=== PATIENT | male | born 1935 | race Caucasian/White ===

== ENCOUNTER 2016-09-23 21:06 | Inpatient (IN) | payer MEDICARE ==
[~2016-09-23] VITALS: Ht 167.6 cm; Wt 70.0 kg
[~2016-09-23 21:06] MED LIST: GABA300C3 PO; LOVA40TA PO; MULT1TAB; PLAV75TA PO; PRED5PAK PO; TAMS5CAP PO; TRAV0.00 EACH EYE; VERA120T3 PO; VITA200017 PO
[2016-09-23] MEDS ORDERED: ACETAMINOPHEN 325 MG TAB PO ONE (21:30)
--- NOTE | 2016-09-23 21:33 | PD ---
HPI Chief Complaint: GENERALIZED WEAKNESS Time Seen by Provider: 21:25 Travel History International Travel<30 days: No Contact w/Intl Traveler<30days: No Traveled to known affect area: No History of Present Illness HPI 81- year old male brought to the ED by EVAC presenting with weakness for the past week. Per EVAC, the patient's called due to weakness and no appetite for the past week. The patient reports that he had a cough for the past week for which he tried some old prednisone that he had for the past two days. He reports that he had no relief with the prednisone. The patient denies any nausea , vomiting, diarrhea, or headache. He does however report some chest pain associated with the coughing. He reports his past medical history includes HTN and HLD. He denies any smoking, alcohol, or drug use. He does to him he has a history of kidney failure and they are monitoring him to see whether he might need dialysis. he follows with Dr. Long for this. She does tell me he has a history of bronchitis with COPD. PFSH Past Medical History Cancer: No Cardiovascular Problems: Yes High Cholesterol: Yes Endocrine: No Genitourinary: Yes (OLIGURIA(CHRONIC PER PT)) Hypertension: Yes Immune Disorder: No Musculoskeletal: No Neurologic: No Psychiatric: No Reproductive: No Past Surgical History Oral Surgery: Yes (TONSILLECTOMY) Social History Alcohol Use: No Tobacco Use: No Substance Use: No Allergies-Medications (Allergen,Severity, Reaction): Coded Allergies: No Known Allergies (Unverified , 09/23/16) Reported Meds & Prescriptions Reported Meds & Active Scripts Active Reported Travatan Z Opth Drops (Travoprost) 0.004 % Soln 1 Drop EACH EYE HS Tamsulosin (Tamsulosin HCl) 0.4 Mg Cap 0.4 Mg PO HS Lovastatin 40 Mg Tab 40 Mg PO DAILY Clopidogrel (Clopidogrel Bisulfate) 75 Mg Tab 75 Mg PO DAILY D3 (Cholecalciferol) 400 Unit Cap Men's Multi-Vitamin (Multivitamin) 1 Each Tablet Verapamil (Verapamil HCl) 120 Mg Tab 120 Mg PO BID Losartan (Losartan Potassium) 25 Mg Tab 25 Mg PO DAILY Calcitriol 0.25 Mcg Cap 0.25 Mcg PO DAILY Review of Systems General / Constitutional: Positive: Fever, Other (Decreased Appetite), No: Chills, Weight Gain, Weight Loss Eyes: No: Diploplia, Blurred Vision, Photophobia, Drainage, Redness, Foreign Body Sensation, Pain, Tearing, Blind Spots, Visual changes, Blindness, Other HENT: No: Headaches, Vertigo, Lightheadedness, Sore Throat, Rhinitis, Rhinorrhea, Congestion, Nosebleed, Neck Stiffness, Neck Pain, Masses, Gingival Bleeding, Dental Difficulties, Ear Discharge, Earache, Other Cardiovascular: Positive: Chest Pain or Discomfort (related to coughing), No: Palpitations, Irregular Rhythm, Tachycardia, Diaphoresis, Syncope, Dyspnea on exertion, Varicosities, Edema, Cyanosis, Varicosities, Phlebitis, Claudication, Other Respiratory: Positive: Cough, No: Shortness of Breath, Wheezing, Sneezing, Orthopnea, Hemoptysis, Stridor, Night Sweats, Pleuritic Pain, Other Gastrointestinal: No: Nausea, Vomiting, Diarrhea, Abdominal Pain, Hematemesis, Hematochezia, Constipation, Changes in Bowel Habits, Indigestion, Dysphagia, Loss of Appetite, Other Genitourinary: No: Urgency, Frequency, Dysuria, Nocturia, Hematuria, Decreased Urinary Output, Oliguria, Hesitancy, Dribbling, Incontinence, Pelvic Pain, Flank Pain, Dyspareunia, Discharge, Dysmenorrhea, Menorrhagia, Metorrhagia, Vaginal Bleeding, Other Musculoskeletal: No: Myalgias, Arthralgias, Limited ROM, Weakness, Cramping, Edema, Pain, Atrophy, Other Skin: No Rash, No Itching, No Dryness, No Lumps, No Hives, No Change in Pigmentation, No Change in nails, No Alopecia, No Lesions, No Breast Lumps, No Breast Tenderness, No Breast Swelling, No Other Neurologic: Positive: Weakness (generalized), No: Dizziness, Syncope, Focal Abnormalities, Coordination Problem, Tremor, Ataxia, Headache, Change in Mentation, Slurred Speech, Paresthesia, Incontinence, Seizures, Sensory Disturbance, Other Psychiatric: No: Anxiety, Depression, Suicidal Ideations, Disorder of Thought, Mood Disorder, Substance Abuse, Homicidal Ideation, Other Endocrine: No: Heat Intolerance, Cold Intolerance, Polyuria, Polydipsia, Other Hematologic/Lymphatic: No: Easy Bruising, Lymph Node Enlargement, Other Physical Exam Narrative GENERAL: SKIN: Warm and dry. HEAD: Atraumatic. Normocephalic. EYES: Pupils equal and round. No scleral icterus. No injection or drainage. ENT: No nasal bleeding or discharge. Mucous membranes pink and moist. Tongue is midline. No uvula deviation. NECK: Trachea midline. No JVD. CARDIOVASCULAR: Regular rate and rhythm. No S3, S4, or murmurs. RESPIRATORY: No accessory muscle use. Mild rales in the lower lung garcia. Breath sounds equal bilaterally. No wheezing, rales, or rhonchi. GASTROINTESTINAL: Abdomen soft, non-tender, nondistended. Hepatic and splenic margins not palpable. MUSCULOSKELETAL: Extremities without clubbing, cyanosis, or edema. No obvious deformities. 2+ pulses bilaterally. Range of motion of the upper and lower extremities bilaterally. 2+ pulses bilaterally. NEUROLOGICAL: Awake and alert. No obvious cranial nerve deficits. Motor grossly within normal limits. Five out of 5 muscle strength in the arms and legs. Normal speech. PSYCHIATRIC: Appropriate mood and affect; insight and judgment normal. Data Data Last Documented VS Vital Signs Date Time Temp Pulse Resp B/P Pulse Ox O2 Delivery O2 Flow Rate FiO2 09/23/16 21:40 100 Room Air 09/23/16 21:35 101.9 87 30 149/71 Orders Complete Blood Count With Diff (09/23/16 21:30) Comprehensive Metabolic Panel (09/23/16 21:30) Lactic Acid (09/23/16 21:30) Prothrombin Time / Inr (Pt) (09/23/16 21:30) Act Partial Throm Time (Ptt) (09/23/16 21:30) Urinalysis - C+S If Indicated (09/23/16 21:30) Iv Access Insert/Monitor (09/23/16 21:30) Ecg Monitoring (09/23/16 21:30) Oximetry (09/23/16 21:30) Electrocardiogram (09/23/16 21:30) Troponin I (09/23/16 21:30) B-Type Natriuretic Peptide (09/23/16 21:30) Blood Culture (09/23/16 21:30) Chest, Single Ap (09/23/16 21:30) Acetaminophen (Tylenol) (09/23/16 21:30) Azithromycin Inj (Zithromax Inj) (09/23/16 22:45) Admit To Inpatient (09/23/16 ) Vital Signs (Adult) Q4H (09/23/16 22:54) Activity Oob With Assistance (09/23/16 22:54) Paymaster Of Purses / Telemetry .CONTINUOUS (09/23/16 22:54) Intake + Output TAMI.QSHIFT (09/23/16 22:54) Diet Heart Healthy (09/24/16 Breakfast) Sodium Chloride 0.9% Flush (Ns Flush) (09/23/16 23:00) Sodium Chloride 0.9% Flush (Ns Flush) (09/24/16 09:00) Basic Metabolic Panel (Bmp) (09/24/16 06:00) Complete Blood Count With Diff (09/24/16 06:00) Resp Oxygen Tobi C Titrat 1-4 L (09/23/16 ) Pt Request For Service (09/23/16 22:54) Case Management Consult (09/23/16 22:54) Naloxone Inj (Narcan Inj) (09/23/16 23:00) Inpatient Certification (09/23/16 ) Ceftriaxone Inj (Rocephin Inj) (09/24/16 23:00) Azithromycin Inj (Zithromax Inj) (09/24/16 23:00) Admit Order (Ed Use Only) (09/23/16 22:52) Consult Nephrology (09/23/16 ) Labs Laboratory Tests Test 09/23/16 09/23/16 21:50 21:51 Lactic Acid Level 1.6 mmol/L White Blood Count 14.3 TH/MM3 Red Blood Count 3.08 MIL/MM3 Hemoglobin 9.9 GM/DL Hematocrit 28.7 % Mean Corpuscular Volume 93.1 FL Mean Corpuscular Hemoglobin 32.0 PG Mean Corpuscular Hemoglobin 34.4 % Concent Red Cell Distribution Width 13.0 % Platelet Count 164 TH/MM3 Mean Platelet Volume 9.3 FL Neutrophils (%) (Auto) 91.7 % Lymphocytes (%) (Auto) 2.1 % Monocytes (%) (Auto) 6.1 % Eosinophils (%) (Auto) 0.0 % Basophils (%) (Auto) 0.1 % Neutrophils # (Auto) 13.1 TH/MM3 Lymphocytes # (Auto) 0.3 TH/MM3 Monocytes # (Auto) 0.9 TH/MM3 Eosinophils # (Auto) 0.0 TH/MM3 Basophils # (Auto) 0.0 TH/MM3 CBC Comment DIFF FINAL Differential Comment Prothrombin Time 12.7 SEC Prothromb Time International 1.1 RATIO Ratio Activated Partial 49.9 SEC Thromboplast Time Sodium Level 133 MEQ/L Potassium Level 4.4 MEQ/L Chloride Level 102 MEQ/L Carbon Dioxide Level 17.8 MEQ/L Anion Gap 13 MEQ/L Blood Urea Nitrogen 105 MG/DL Creatinine 6.78 MG/DL Estimat Glomerular Filtration 8 ML/MIN Rate Random Glucose 124 MG/DL Calcium Level 9.1 MG/DL Total Bilirubin 0.5 MG/DL Aspartate Amino Transf 63 U/L (AST/SGOT) Alanine Aminotransferase 43 U/L (ALT/SGPT) Alkaline Phosphatase 52 U/L Troponin I 0.22 NG/ML B-Type Natriuretic Peptide 400 PG/ML Total Protein 7.1 GM/DL Albumin 3.0 GM/DL MDM Medical Decision Making Medical Screen Exam Complete: Yes Emergency Medical Condition: Yes Medical Record Reviewed: Yes Interpretation(s) CBC & BMP Diagram 09/23/16 21:51 Last Impressions Chest X-Ray 09/23/162129 Signed Impressions: Service Date/Time: Friday, September 23, 2016 21:48 - CONCLUSION: Mild infiltrate and small pleural effusion at the left lung base. Joe Hdz MD lactic acid WNL troponin slightly elevated 0.22 CK WNL Differential Diagnosis Kidney failure versus pneumonia versus sepsis versus bronchitis Narrative Course 81-year-old male that presents to the ED for evaluation of cough and congestion as well as weakness. Patient was properly examined and was found to have signs and symptoms for sepsis. Patient does have a fever on exam. Patient was given Tylenol for the fever. Labs and imaging were done. Labs and imaging showed leukocytosis and signs of sepsis as well as possible pneumonia on the chest x- ray. More interestingly his kidney function appears to have drastically worsen. is present at bedside and she was able to give me the labs from 2 months ago where his BUN was 50 and now his BUN is in the 100s. His creatinine also seems to have increased from 4-6. This appears to be acute on chronic. Possibly from dehydration and secondary to his current illness. Patient follows with Dr. Long. At this time I recommend admission for fracture evaluation of the kidney injury as well as the sepsis. Patient is in agreement with plan. She was started on azithromycin and ceftriaxone. Case was discussed with Dr. Walsh who agrees to admission. Sepsis Criteria SIRS Criteria (2 or more): Temp > 100.9 or < 96.8, WBC > 41179, < 4000 or > 10 % bands Sepsis Criteria (SIRS+source): Infect source susp/known Criteria Outcome: Meets sepsis criteria Diagnosis Primary Impression: Pneumonia Qualified Code: J18.1 - Pneumonia of right lower lobe due to infectious organism Additional Impressions: Acute on chronic kidney failure Qualified Code: N17.9 - Acute renal failure superimposed on chronic kidney disease, unspecified CKD stage, unspecified acute renal failure type Sepsis Qualified Code: A41.9 - Sepsis, due to unspecified organism Troponin level elevated Admitting Information Admitting Physician Requests: Admit Lawrence Packer Sep 23, 2016 21:33
[2016-09-23 21:35] VITALS: BP 149/71; PULSE 87; RESP 30; TEMP 101.9; O2SAT 98
[2016-09-23 21:40] VITALS: O2SAT 100
[2016-09-23] MEDS ORDERED: CALC0.25 PO (21:49)
[2016-09-23] MEDS ORDERED: VERA120T3 PO (21:49)
[2016-09-23] MEDS ORDERED: MULT-267 (21:49)
[2016-09-23] MEDS ORDERED: LOSA25TA PO (21:49)
[2016-09-23] MEDS ORDERED: TRAV0.00 EACH EYE (21:50)
[2016-09-23] MEDS ORDERED: D3400CAP (21:50)
[2016-09-23] MEDS ORDERED: CLOP75TA PO (21:50)
[2016-09-23] MEDS ORDERED: LOVA40TA PO (21:50)
[2016-09-23] MEDS ORDERED: TAMS0.4C4 PO (21:50)
--- NOTE | 2016-09-23 22:16 | RADRPT ---
EXAM DATE/TIME: 09/23/2016 21:48 [facility] COMPARISON: No previous studies available for comparison. INDICATIONS : Short of breath for a few days. MEDICAL HISTORY : Hypertension. SURGICAL HISTORY : None. ENCOUNTER: Initial ACUITY: 2 days PAIN SCORE: 0/10 LOCATION: Bilateral chest FINDINGS: Mild infiltrate and small pleural effusion seen at the left lung base. Right lung is clear. No pneumo thorax on either side. CONCLUSION: Mild infiltrate and small pleural effusion at the left lung base. Joe Hdz MD on September 23, 2016 at 22:14 Board Certified Radiologist. This report was verified electronically.
[2016-09-23 22:21] LABS: AUTOMATED NEUTROPHIL # 13.1 TH/MM3 (1.8-7.7); BASOPHIL % 0.1 % (0.0-2.0); HEMATOCRIT 28.7 % (39.0-51.0); HEMO FLAGS DIFF FINAL; LYMPH % 2.1 % (9.0-44.0); LYMPHOCYTE # 0.3 TH/MM3 (1.0-4.8); MEAN CELL VOLUME 93.1 FL (80.0-100.0); MEAN CORPUSCULAR HGB CONC 34.4 % (32.0-36.0); MONO % 6.1 % (0.0-8.0); NEUT % 91.7 % (16.0-70.0); PLATELET COUNT 164 TH/MM3 (150-450); RED BLOOD COUNT 3.08 MIL/MM3 (4.50-5.90); WHITE BLOOD COUNT 14.3 TH/MM3 (4.0-11.0)
[2016-09-23 22:41] LABS: APTT (PATIENT) 49.9 SEC (24.3-30.1); INTERNATIONAL NORMALIZED RATIO 1.1 RATIO; PROTHROMBIN TIME - PATIENT 12.7 SEC (9.8-11.6)
[2016-09-23 22:42] LABS: ALT (GPT) 43 U/L (12-78); ANION GAP 13 MEQ/L (5-15); AST (GOT) 63 U/L (15-37); BICARBONATE 17.8 MEQ/L (21.0-32.0); BLOOD UREA NITROGEN 105 MG/DL (7-18); CHLORIDE 102 MEQ/L (98-107); GLOMERULAR FILTRATION RATE 8 ML/MIN (>89); POTASSIUM 4.4 MEQ/L (3.5-5.1); SODIUM (NA) 133 MEQ/L (136-145)
[2016-09-23] MEDS ORDERED: AZITHROMYCIN INJ 500 MG in SODIUM CHLOR 0.9% 250 ML INJ 250 ML IV ONE (22:45)
[2016-09-23 22:46] LABS: ALKALINE PHOSPHATASE 52 U/L (45-117); TOTAL BILIRUBIN ADULT 0.5 MG/DL (0.2-1.0)
[2016-09-23] MEDS ORDERED: NALOXONE HCL 0.4 MG/ML AMP IV PRN (23:00)
[2016-09-23] MEDS ORDERED: SODIUM CHLORIDE 0.9% FLUSH 10 ML FLUSH IV FLUSH PRN (23:00)
[2016-09-23] MEDS ORDERED: cefTRIAXone INJ 1,000 MG in SODIUM CHLORIDE 0.9% INJ 100 ML IV ONE (23:00)
[2016-09-23 23:05] VITALS: O2SAT 95
[2016-09-23 23:43] VITALS: BP 129/58; PULSE 62; RESP 14; TEMP 98.2
[2016-09-24] VITALS (10 sets, daily range): BP systolic 117–173; BP diastolic 54–74; PULSE 50–75; RESP 14–22; TEMP 98.4–99.6; O2SAT 93–98
[2016-09-24 07:42] LABS: AUTOMATED NEUTROPHIL # 12.3 TH/MM3 (1.8-7.7); BASOPHIL % 0.1 % (0.0-2.0); HEMATOCRIT 25.6 % (39.0-51.0); HEMO FLAGS DIFF FINAL; LYMPH % 1.9 % (9.0-44.0); LYMPHOCYTE # 0.3 TH/MM3 (1.0-4.8); MEAN CELL VOLUME 93.1 FL (80.0-100.0); MEAN CORPUSCULAR HEMOGLOBIN 32.4 PG (27.0-34.0); MEAN CORPUSCULAR HGB CONC 34.8 % (32.0-36.0); MONO % 9.2 % (0.0-8.0); NEUT % 88.8 % (16.0-70.0); PLATELET COUNT 156 TH/MM3 (150-450); RED BLOOD COUNT 2.75 MIL/MM3 (4.50-5.90); RED CELL DISTRIBUTION WIDTH 13.1 % (11.6-17.2); WHITE BLOOD COUNT 13.8 TH/MM3 (4.0-11.0)
[2016-09-24 08:01] LABS: BICARBONATE 19.8 MEQ/L (21.0-32.0); POTASSIUM 4.4 MEQ/L (3.5-5.1)
--- NOTE | 2016-09-24 08:30 | HHI.HP ---
[facility] Lisa Yousif MD Admission Diagnosis acute pneumonia, acute on chronic kidney injury Diagnoses: Chief Complaint: Weakness and cough Travel History International Travel<30 Days: No Contact w/Intl Traveler <30 Da: No Traveled to Known Affected Are: No History of Present Illness This is a pleasant 81 y/o male who came to ER with Weakness for the past week, the patient's called due to weakness and no appetite for the past week. The patient reports that he had a cough for the past week for which he tried some old prednisone that he had for the past two days. He reports that he had no relief with the prednisone. The patient denies any nausea, vomiting, diarrhea, or headache. He does however report some chest pain associated with the coughing. He reports his past medical history includes Hypertension, Hyperlipidemia, He denies any smoking, alcohol, or drug use. has history of Kidney failure, followed by Doctor Osman Long Nephrology specialist, Has also COPD. Seen in his bedroom stable Discussed with Doctor Denisse Nephrology specialist the patient will need Hemodialysis. 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 Past Surgical History Tonsillectomy Reported Medications Reported Meds & Active Scripts Active Reported Travatan Z Opth Drops (Travoprost) 0.004 % Soln 1 Drop EACH EYE HS Tamsulosin (Tamsulosin HCl) 0.4 Mg Cap 0.4 Mg PO HS Lovastatin 40 Mg Tab 40 Mg PO DAILY Clopidogrel (Clopidogrel Bisulfate) 75 Mg Tab 75 Mg PO DAILY D3 (Cholecalciferol) 400 Unit Cap Men's Multi-Vitamin (Multivitamin) 1 Each Tablet Verapamil (Verapamil HCl) 120 Mg Tab 120 Mg PO BID Losartan (Losartan Potassium) 25 Mg Tab 25 Mg PO DAILY Calcitriol 0.25 Mcg Cap 0.25 Mcg PO DAILY Allergies: Coded Allergies: No Known Allergies (Unverified , 8/15/17) Active Ordered Medications Current Medications Medications (Trade) Dose Ordered Sig/[place] Route Start Time Stop Time Status Last Admin (NS Flush) 2 ml UNSCH PRN IV FLUSH 09/23/16 23:00 (NS Flush) 2 ml BID IV FLUSH 09/24/16 09:00 Naloxone HCl 0.4 mg 0.4 mg UNSCH PRN IV 09/23/16 23:00 Ceftriaxone Sodium 1000 mg/ Sodium Chloride 100 ml @ 200 mls/hr Q24H IV 09/24/16 23:00 (Zithromax Inj/ NS 250 ml Inj) 250 ml @ 250 mls/hr Q24H IV 09/24/16 23:00 Family History Asked and denied. Social History Denies any toxic habits. Lives with his . Physical Exam Vital Signs Vital Signs Date Time Temp Pulse Resp B/P Pulse Ox O2 Delivery O2 Flow Rate FiO2 09/24/16 07:22 99.6 54 18 144/67 95 Room Air 09/24/16 06:45 51 18 148/63 98 Room Air 09/24/16 05:13 98.7 50 16 161/70 98 Room Air 09/24/16 03:46 52 14 129/54 98 Room Air 09/24/16 00:42 60 18 117/58 98 Room Air 09/23/16 23:43 98.2 62 14 129/58 Room Air 09/23/16 23:05 95 21 09/23/16 21:40 100 Room Air 09/23/16 21:35 101.9 87 30 149/71 98 Physical Exam GENERAL: NO acute distress. SKIN: Warm and dry. HEAD: Atraumatic. Normocephalic. EYES: Pupils equal and round. No scleral icterus. No injection or drainage. ENT: No nasal bleeding or discharge. Mucous membranes pink and moist. Tongue is midline. No uvula deviation. NECK: Trachea midline. No JVD. CARDIOVASCULAR: Regular rate and rhythm. No S3, S4, or murmurs. RESPIRATORY: No accessory muscle use. Mild rales in the lower lung garcia. GASTROINTESTINAL: Abdomen soft, non-tender, nondistended. Hepatic and splenic margins not palpable. MUSCULOSKELETAL: Extremities without clubbing, cyanosis, or edema. No obvious deformities. 2+ pulses bilaterally. Range of motion of the upper and lower extremities bilaterally. 2+ pulses bilaterally. NEUROLOGICAL: Awake and alert. No obvious cranial nerve deficits. Motor grossly within normal limits. Five out of 5 muscle strength in the arms and legs. Normal speech. PSYCHIATRIC: Appropriate mood and affect; insight and judgment normal. Laboratory Laboratory Tests Test 09/23/16 09/23/16 09/24/16 21:50 21:51 07:12 Lactic Acid Level 1.6 White Blood Count 14.3 13.8 Red Blood Count 3.08 2.75 Hemoglobin 9.9 8.9 Hematocrit 28.7 25.6 Mean Corpuscular Volume 93.1 93.1 Mean Corpuscular Hemoglobin 32.0 32.4 Mean Corpuscular Hemoglobin 34.4 34.8 Concent Red Cell Distribution Width 13.0 13.1 Platelet Count 164 156 Mean Platelet Volume 9.3 8.9 Neutrophils (%) (Auto) 91.7 88.8 Lymphocytes (%) (Auto) 2.1 1.9 Monocytes (%) (Auto) 6.1 9.2 Eosinophils (%) (Auto) 0.0 0.0 Basophils (%) (Auto) 0.1 0.1 Neutrophils # (Auto) 13.1 12.3 Lymphocytes # (Auto) 0.3 0.3 Monocytes # (Auto) 0.9 1.3 Eosinophils # (Auto) 0.0 0.0 Basophils # (Auto) 0.0 0.0 CBC Comment DIFF FINAL DIFF FINAL Differential Comment Prothrombin Time 12.7 Prothromb Time International 1.1 Ratio Activated Partial 49.9 Thromboplast Time Sodium Level 133 136 Potassium Level 4.4 4.4 Chloride Level 102 105 Carbon Dioxide Level 17.8 19.8 Anion Gap 13 11 Blood Urea Nitrogen 105 112 Creatinine 6.78 7.21 Estimat Glomerular Filtration 8 7 Rate Random Glucose 124 123 Calcium Level 9.1 8.9 Total Bilirubin 0.5 Aspartate Amino Transf 63 (AST/SGOT) Alanine Aminotransferase 43 (ALT/SGPT) Alkaline Phosphatase 52 Troponin I 0.22 B-Type Natriuretic Peptide 400 Total Protein 7.1 Albumin 3.0 Date/Time Procedure Status Source Growth 09/23/16 21:56 Aerobic Blood Culture Received Blood Peripheral Pending 09/23/16 21:56 Anaerobic Blood Culture Received Blood Peripheral Pending Result Diagram: 09/24/16 0712 09/24/16 0712 Imaging Last Impressions Chest X-Ray 09/23/162129 Signed Impressions: Service Date/Time: Friday, September 23, 2016 21:48 - CONCLUSION: Mild infiltrate and small pleural effusion at the left lung base. Joe Hdz MD Assessment and Plan Assessment and Plan 1. 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 2. Pneumonia on Ceftriaxone and Azithromycin, asked for blood culture, Legionella antigen and Pneumococcal antigen. 3. Hypertension controlled continue home medicines 4. Hyperlipidemia continue Statins 5. COPD stable continue Bronchodilator, Mucolytic and incentive spirometry. 6. Anemia to start Epogen as per Nephrology specialist. DVT prophylaxis with Heparin. Discussed Condition With Patient and Nephrology specialist. Physician Certification 2 Midnight Certification Type: Admission for Inpatient Services Order for Inpatient Services The services are ordered in accordance with Medicare regulations or non- Medicare payer requirements, as applicable. In the case of services not specified as inpatient-only, they are appropriately provided as inpatient services in accordance with the 2-midnight benchmark. Estimated LOS (days): 3 days is the estimated time the patient will need to remain in the hospital, assuming treatment plan goals are met and no additional complications. Post-Hospital Plan: Not yet determined Jer German MD Sep 24, 2016 08:30
[2016-09-24] MEDS: guaiFENesin E.R. 600 MG TAB PO SCH ×2 (08:51→20:27)
[2016-09-24] MEDS: SODIUM CHLORIDE 0.9% FLUSH 10 ML FLUSH IV FLUSH SCH ×2 (08:51→20:28)
[2016-09-24] MEDS: PRAVASTATIN SOD 40 MG TAB PO SCH (09:00)
--- NOTE | 2016-09-24 10:50 | PD.CONS ---
[facility] Service Nephrology Consult Requested By Ochoa Reason for Consult Hx CKD Primary Care Physician Lisa Yousif MD History of Present Illness This is a 81 y/o male patient we follow in the outpatient setting. He has a hx of CKD 5. In July his creatinien was 4.4, GFR 11. We had previously discussed dialysis options but he was not ready as of yet. He came to the hospital for generalized weakness, loss of appetite for the past two weeks. His creatinine today is 7.21, GFR of 7. In addition he has symptoms of uremia and has developed metabolic acidosis. He has decided to proceed with PD, I have consulted Dr. Kothari for evaluation. Other PMH of secondary hyperparathyroidism , HTN, hyperlipidemia. He is also anemic today. He is a full code. (Jania Gallagher) Review of Systems Constitutional: COMPLAINS OF: Fatigue, Change in appetite, DENIES: Fever, Weight gain Eyes: DENIES: Blurred vision Cardiovascular: COMPLAINS OF: Dyspnea on Exertion, DENIES: Chest pain, Lower Extremity Edema Gastrointestinal: DENIES: Abdominal pain (Jania Gallagher) Past Family Social History Allergies: Coded Allergies: No Known Allergies (Unverified , 09/23/16) Past Medical History CKD 5, GFR 11 and creatinine 4.4 in July 2015 HTN anemia hyperlipidemia secondary hyperparathyroidism Past Surgical History Tonsillectomy Reported Medications Travatan Z Opth Drops (Travoprost) 0.004 % Soln 1 Drop EACH EYE HS Tamsulosin (Tamsulosin HCl) 0.4 Mg Cap 0.4 Mg PO HS Lovastatin 40 Mg Tab 40 Mg PO DAILY Clopidogrel (Clopidogrel Bisulfate) 75 Mg Tab 75 Mg PO DAILY D3 (Cholecalciferol) 400 Unit Cap Men's Multi-Vitamin (Multivitamin) 1 Each Tablet Verapamil (Verapamil HCl) 120 Mg Tab 120 Mg PO BID Losartan (Losartan Potassium) 25 Mg Tab 25 Mg PO DAILY Calcitriol 0.25 Mcg Cap 0.25 Mcg PO DAILY Active Ordered Medications Current Medications Medications (Trade) Dose Ordered Sig/Corin[place] Route Start Time Stop Time Status Last Admin (NS Flush) 2 ml UNSCH PRN IV FLUSH 09/23/16 23:00 (NS Flush) 2 ml BID IV FLUSH 09/24/16 09:00 09/24/16 08:51 Naloxone HCl 0.4 mg 0.4 mg UNSCH PRN IV 09/23/16 23:00 Ceftriaxone Sodium 1000 mg/ Sodium Chloride 100 ml @ 200 mls/hr Q24H IV 09/24/16 23:00 (Zithromax Inj/ NS 250 ml Inj) 250 ml @ 250 mls/hr Q24H IV 09/24/16 23:00 (Mucinex Er) 600 mg BID PO 09/24/16 09:00 09/24/16 08:51 (Rocaltrol) 0.25 mcg DAILY PO 09/24/16 09:00 UNV (Plavix) 75 mg DAILY PO 09/24/16 09:00 UNV (Pravachol) 40 mg DAILY PO 09/24/16 09:00 UNV (Flomax) 0.4 mg HS PO 09/24/16 21:00 UNV (Isoptin) 120 mg BID PO 09/24/16 09:00 UNV Non-Formulary Medication 1 drop HS EACH EYE 09/24/16 21:00 UNV Family History no hx of renal disorders Social History , lives with retired normally is functional in ADLs full code retired no smoking or ETOH (Jania Gallagher) Physical Exam Vital Signs Vital Signs Date Time Temp Pulse Resp B/P Pulse Ox O2 Delivery O2 Flow Rate FiO2 09/24/16 07:22 99.6 54 18 144/67 95 Room Air 09/24/16 06:45 51 18 148/63 98 Room Air 09/24/16 05:13 98.7 50 16 161/70 98 Room Air 09/24/16 03:46 52 14 129/54 98 Room Air 09/24/16 00:42 60 18 117/58 98 Room Air 09/23/16 23:43 98.2 62 14 129/58 Room Air 09/23/16 23:05 95 21 09/23/16 21:40 100 Room Air 09/23/16 21:35 101.9 87 30 149/71 98 Physical Exam male, he is sitting in bed in no distress Neuro: awake/ oriented x 3 CV: S1/S2, RRR no murmurs Lungs; crackles, rales, wheezing, he is coughing frequently during exam Abd: round, soft, non tender, no hernias present Ext: scars on lower extremities, trace edema, painful to touch, pulses 1+ bilaterally Laboratory Laboratory Tests Test 09/23/16 09/23/16 09/24/16 21:50 21:51 07:12 Lactic Acid Level 1.6 White Blood Count 14.3 13.8 Red Blood Count 3.08 2.75 Hemoglobin 9.9 8.9 Hematocrit 28.7 25.6 Mean Corpuscular Volume 93.1 93.1 Mean Corpuscular Hemoglobin 32.0 32.4 Mean Corpuscular Hemoglobin 34.4 34.8 Concent Red Cell Distribution Width 13.0 13.1 Platelet Count 164 156 Mean Platelet Volume 9.3 8.9 Neutrophils (%) (Auto) 91.7 88.8 Lymphocytes (%) (Auto) 2.1 1.9 Monocytes (%) (Auto) 6.1 9.2 Eosinophils (%) (Auto) 0.0 0.0 Basophils (%) (Auto) 0.1 0.1 Neutrophils # (Auto) 13.1 12.3 Lymphocytes # (Auto) 0.3 0.3 Monocytes # (Auto) 0.9 1.3 Eosinophils # (Auto) 0.0 0.0 Basophils # (Auto) 0.0 0.0 CBC Comment DIFF FINAL DIFF FINAL Differential Comment Prothrombin Time 12.7 Prothromb Time International 1.1 Ratio Activated Partial 49.9 Thromboplast Time Sodium Level 133 136 Potassium Level 4.4 4.4 Chloride Level 102 105 Carbon Dioxide Level 17.8 19.8 Anion Gap 13 11 Blood Urea Nitrogen 105 112 Creatinine 6.78 7.21 Estimat Glomerular Filtration 8 7 Rate Random Glucose 124 123 Calcium Level 9.1 8.9 Total Bilirubin 0.5 Aspartate Amino Transf 63 (AST/SGOT) Alanine Aminotransferase 43 (ALT/SGPT) Alkaline Phosphatase 52 Troponin I 0.22 B-Type Natriuretic Peptide 400 Total Protein 7.1 Albumin 3.0 Date/Time Procedure Status Source Growth 09/23/16 21:56 Aerobic Blood Culture Received Blood Peripheral Pending 09/23/16 21:56 Anaerobic Blood Culture Received Blood Peripheral Pending (Jania Gallagher) Result Diagram: 09/24/1612 09/24/16 0712 Imaging Last 72 hours Impressions Chest X-Ray 09/23/162129 Signed Impressions: Service Date/Time: Friday, September 23, 2016 21:48 - CONCLUSION: Mild infiltrate and small pleural effusion at the left lung base. Joe Hdz MD (Jania Gallagher) Assessment and Plan Problem List: (1) Chronic kidney disease Plan: He has progressive renal disease, stage 5, with symptoms of uremia GFR is now 7, he needs renal replacement therapy after discussion he has decided to proceed with PD, I have consulted Dr. Kothari for catheter placement he will likely need HD prior to starting PD, I have consulted IR for Permcath placement in AM (he already ate today) NPO after midnight tonight I will begin oral sodium bicarbonate for the metabolic acidosis follow renal panel, check phosphorus level I will await surgery's recommendations avoid IVF at this time (2) Pneumonia Plan: he is on Zithromax and rocephin for LLL pneumonia he does have mild leukocytosis monitor clinically (3) Hypertension Plan: resume home medications including verapamil and losartan (4) Hyperlipidemia Plan: he is on a statin (5) Anemia Plan: He likely has anemia of chronic disease give a dose of Epogen check iron profile (Jania Gallagher) Assessment and Plan patient was seen and examined. He presents with symptoms of uremia. We will start HD. Radiology does not want to place since he is on Plavix. Vascath placement and dialysis. PD catheter possibly next week. (Gabriel Salcedo MD) Problem Qualifiers (1) Pneumonia: Qualified Code: J18.1 - Pneumonia of right lower lobe due to infectious organism Jania Gallagher Sep 24, 2016 10:50 Gabriel Salcedo MD Sep 24, 2016 18:15
[2016-09-24] MEDS: RESP: ALBUTEROL 2.5 MG/IPRATROPIUM 0.5 MG NEB (SCH) NEB ×4 (11:21→23:14)
[2016-09-24] MEDS ORDERED: EPOETIN ALFA 20,000 UNITS/ML VIAL SQ ONE (11:45)
[2016-09-24] MEDS: VERAPAMIL HCL 120 MG TAB PO SCH ×2 (12:01→20:28)
[2016-09-24] MEDS: CLOPIDOGREL 75 MG TAB PO SCH (12:01)
[2016-09-24] MEDS: CALCITRIOL 0.25 MCG CAP PO SCH (12:02)
[2016-09-24] MEDS: SODIUM BICARBONATE 650 MG TAB PO SCH ×2 (12:02→20:28)
[2016-09-24] MEDS: TAMSULOSIN HCL 0.4 MG CAP PO SCH (20:27)
[2016-09-24] MEDS ORDERED: VERAPAMIL HCL 120 MG SUSTAINED RELEASE TAB PO SCH (21:00)
[2016-09-24] MEDS: LATANOPROST 0.005% OPHT SOLN 2.5 ML BTL EACH EYE SCH (22:41)
[2016-09-24] MEDS: AZITHROMYCIN INJ 250 MG in SODIUM CHLOR 0.9% 250 ML INJ 250 ML IV SCH (22:41)
[2016-09-25] VITALS (7 sets, daily range): BP systolic 110–153; BP diastolic 56–69; PULSE 57–67; RESP 16–20; TEMP 96–98.6; O2SAT 93–96
[2016-09-25] MEDS: cefTRIAXone INJ 1,000 MG in SODIUM CHLORIDE 0.9% INJ 100 ML IV SCH ×2 (00:23→21:55)
[2016-09-25] MEDS: RESP: ALBUTEROL 2.5 MG/IPRATROPIUM 0.5 MG NEB (SCH) NEB ×3 (02:57→11:10)
[2016-09-25 08:18] LABS: ANION GAP 13 MEQ/L (5-15); BICARBONATE 17.9 MEQ/L (21.0-32.0); BLOOD UREA NITROGEN 123 MG/DL (7-18); CHLORIDE 105 MEQ/L (98-107); GLOMERULAR FILTRATION RATE 7 ML/MIN (>89); POTASSIUM 4.2 MEQ/L (3.5-5.1); SODIUM (NA) 136 MEQ/L (136-145)
[2016-09-25 08:29] LABS: FERRITIN 1507 NG/ML (26-388); TRANSFERRIN IRON PROFILE 94 MG/DL (200-360)
--- NOTE | 2016-09-25 08:51 | EKG ---
Date Performed: 09/23/2016 Time Performed: 21:42:17 PTAGE: 81 years EKG: Difficult rhythm, possible AV dissociation with junctional escape which may convert to NSR with short MI Non-specific ST/T wave changes ABNORMAL ECG PREVIOUS TRACING : 09/23/2016 21.41 Compared to the previous tracing, previously normal Sinus r hythm DOCTOR: Elliot Arizmendi Interpretating Date/Time 09/25/2016 08:49:20
[2016-09-25] MEDS: SODIUM BICARBONATE 650 MG TAB PO SCH (09:00)
[2016-09-25] MEDS: SODIUM CHLORIDE 0.9% FLUSH 10 ML FLUSH IV FLUSH SCH ×2 (09:00→21:54)
--- NOTE | 2016-09-25 09:14 | PD.RAD ---
Post Procedure Progress Note Pre Procedure Diagnosis: (1) Acute on chronic kidney failure Post Procedure Diagnosis: (1) Acute on chronic kidney failure Procedure Date: Sep 25, 2016 Supervising Radiologist: Abhishek Fatima JR Proceduralist/Assist: Kimberley Sidhu, RT(R)(CV), Deysi Sandhu RT(R)() Anesthesia: Local Plan of Activity Patient to Unit: Nursing Unit Patient Condition: Good See PACS Report for procedural detail/treatment Central Venous Access Device Procedure 1 Right Internal Jugular Hemodialysis Catheter Non-Tunneled Placement dual lumen Greek: 14 Findings: Placed Vascath secondary to Plavix. In good position. Functions well. OK to use. Plan Can convert to Permcath if needed following Plavix hold. Jr. Kushal,Abhishek Champan MD Sep 25, 2016 09:14
[2016-09-25] MEDS ORDERED: HEPARIN SODIUM - IV 2,000 UNITS/2 ML VIAL IV FLUSH PRN (09:15)
[2016-09-25] MEDS ORDERED: SODIUM CHLORIDE 0.9% FLUSH 10 ML FLUSH IVF PRN (09:15)
--- NOTE | 2016-09-25 10:15 | RADRPT ---
EXAM DATE/TIME: 09/25/2016 08:45 [place] COMPARISON: No previous studies available for comparison. INDICATIONS : Patient is in need of placement of a Vascath due to CKD. Patient on Plavix. MEDICAL HISTORY : History of hyperparathyroidism, HTN, HLD, anemia, pneumonia. SURGICAL HISTORY : History of tonsillectomy. ENCOUNTER: Initial ACUITY: 2 days PAIN SCORE: 0/10 FLUORO TIME: 0.6 minutes IMAGE SERIES: 1 ACCESS: Right internal jugular vein MEDICATION(S): 1.) 2200 units Heparin catheter lock DEVICE(S): 1.) 14 [place] dual lumen 15 cm Schon catheter PROCEDURE : 1. Ultrasound guided venipuncture. 2. Fluoroscopic guidance. 3. Central line placement. The risks, benefits and alternatives to the procedure were explained and verbal and written consent w as obtained. The site was prepped in sterile fashion. Full sterile technique was used, including ca p, mask, sterile gloves and gown and a large sterile sheet. Hand hygiene and 2% chlorhexidine prep w as utilized per protocol for cutaneous antisepsis with appropriate dry time for site. The skin and subcutaneous tissues were infiltrated with local anesthetic solution. A suitable site a brien the vein was selected with ultrasound and fluoroscopic guidance. A small incision was made. Th e vein was accessed under direct ultrasound visualization using the micropuncture technique. The liya ropuncture set was exchanged for a 0.035 wire. The tract was dilated. The catheter was advanced int o position under direct fluoroscopic visualization. The catheter was fixed in place with suture and a sterile dressing was applied. The patient tolerated the procedure well and there were no complications. CONCLUSION: Uncomplicated line placement as above. This can be converted to a PermCath. Abhishek Fatima Jr., MD on September 25, 2016 at 10:07 Board Certified Radiologist. This report was verified electronically.
--- NOTE | 2016-09-25 12:39 | HHI.PR ---
Subjective Remarks This is a pleasant 81 y/o male who came to ER with Weakness for the past week, the patient's called due to weakness and no appetite for the past week. The patient reports that he had a cough for the past week for which he tried some old prednisone that he had for the past two days. He reports that he had no relief with the prednisone. The patient denies any nausea, vomiting, diarrhea, or headache. He does however report some chest pain associated with the coughing. He reports his past medical history includes Hypertension, Hyperlipidemia, He denies any smoking, alcohol, or drug use. has history of Kidney failure, followed by Doctor Osman Long Nephrology specialist, Has also COPD. Seen in his bedroom stable Discussed with Doctor Denisse Nephrology specialist the patient will need Hemodialysis. 09/25: Seen in his bedroom in the presence of Mrs. Jolynn Mcgovern, she had a concern about the antibiotics not been given on time, showed in the computer the ER physician gave him Ceftriaxone and Azithromycin at 23 hours on 09/23/16 when he came and this medicine if used every 24 hours, had his first hemodialysis today, no new issues. NO nausea, vomit or diarrhea. Objective Vital Signs Date Time Temp Pulse Resp B/P Pulse Ox O2 Delivery O2 Flow Rate FiO2 09/25/16 07:48 98.6 62 20 129/60 96 09/25/16 05:12 98.5 62 18 141/64 93 09/25/16 01:57 98.3 63 19 153/69 95 09/25/16 01:12 67 09/24/16 21:17 98.6 75 16 128/60 93 09/24/16 20:18 97 09/24/16 17:30 98.7 66 22 173/74 95 09/24/16 13:34 98.4 65 18 135/60 95 09/24/16 13:20 65 I/O 09/24/16 09/24/16 09/24/16 09/25/16 09/25/16 09/25/16 07:00 15:00 23:00 07:00 15:00 23:00 Intake Total 400 ml Balance 400 ml Intake Oral 400 ml # Voids 0 1 # Bowel Movements 0 Result Diagram: 09/24/16 0712 09/25/16 0710 Imaging Last Impressions Catheter Placement X-Ray 09/25/16 0000 Signed Impressions: Service Date/Time: September 08:45 - CONCLUSION: Uncomplicated line placement as above. This can be converted to a PermCath. Abhishek Fatima Jr., MD Chest X-Ray 09/23/16 2130 Signed Impressions: Service Date/Time: Friday, September 23, 2016 21:48 - CONCLUSION: Mild infiltrate and small pleural effusion at the left lung base. Joe Hdz MD Procedures Perm cath placement and Hemodialysis started 09/25/16 Other Results Laboratory Tests Test 09/23/16 09/23/16 09/24/16 09/25/16 21:50 21:51 07:12 07:10 Lactic Acid Level 1.6 mmol/L Prothrombin Time 12.7 SEC Prothromb Time International 1.1 RATIO Ratio Activated Partial 49.9 SEC Thromboplast Time Total Bilirubin 0.5 MG/DL Aspartate Amino Transf 63 U/L (AST/SGOT) Alanine Aminotransferase 43 U/L (ALT/SGPT) Alkaline Phosphatase 52 U/L Troponin I 0.22 NG/ML B-Type Natriuretic Peptide 400 PG/ML Total Protein 7.1 GM/DL White Blood Count 13.8 TH/MM3 Red Blood Count 2.75 MIL/MM3 Hemoglobin 8.9 GM/DL Hematocrit 25.6 % Mean Corpuscular Volume 93.1 FL Mean Corpuscular Hemoglobin 32.4 PG Mean Corpuscular Hemoglobin 34.8 % Concent Red Cell Distribution Width 13.1 % Platelet Count 156 TH/MM3 Mean Platelet Volume 8.9 FL Neutrophils (%) (Auto) 88.8 % Lymphocytes (%) (Auto) 1.9 % Monocytes (%) (Auto) 9.2 % Eosinophils (%) (Auto) 0.0 % Basophils (%) (Auto) 0.1 % Neutrophils # (Auto) 12.3 TH/MM3 Lymphocytes # (Auto) 0.3 TH/MM3 Monocytes # (Auto) 1.3 TH/MM3 Eosinophils # (Auto) 0.0 TH/MM3 Basophils # (Auto) 0.0 TH/MM3 CBC Comment DIFF FINAL Differential Comment Sodium Level 136 MEQ/L Potassium Level 4.2 MEQ/L Chloride Level 105 MEQ/L Carbon Dioxide Level 17.9 MEQ/L Anion Gap 13 MEQ/L Blood Urea Nitrogen 123 MG/DL Creatinine 7.59 MG/DL Estimat Glomerular Filtration 7 ML/MIN Rate Random Glucose 110 MG/DL Calcium Level 8.6 MG/DL Phosphorus Level 4.9 MG/DL Iron Level 20 MCG/DL Total Iron Binding Capacity 132 MCG/DL Percent Iron Saturation 15.2 % Ferritin 1507 NG/ML Albumin 2.2 GM/DL Objective Remarks GENERAL: NO acute distress. SKIN: Warm and dry. HEAD: Atraumatic. Normocephalic. EYES: Pupils equal and round. No scleral icterus. No injection or drainage. ENT: No nasal bleeding or discharge. Mucous membranes pink and moist. Tongue is midline. No uvula deviation. NECK: Trachea midline. No JVD. CARDIOVASCULAR: Regular rate and rhythm. No S3, S4, or murmurs. RESPIRATORY: No accessory muscle use. Mild rales in the lower lung garcia. GASTROINTESTINAL: Abdomen soft, non-tender, nondistended. Hepatic and splenic margins not palpable. MUSCULOSKELETAL: Extremities without clubbing, cyanosis, or edema. No obvious deformities. 2+ pulses bilaterally. Range of motion of the upper and lower extremities bilaterally. 2+ pulses bilaterally. NEUROLOGICAL: Awake and alert. No obvious cranial nerve deficits. Motor grossly within normal limits. Five out of 5 muscle strength in the arms and legs. Normal speech. PSYCHIATRIC: Appropriate mood and affect; insight and judgment normal. Medications and IVs Current Medications Medications (Trade) Dose Ordered Sig/[place] Route Start Time Stop Time Status Last Admin (NS Flush) 2 ml UNSCH PRN IV FLUSH 09/23/16 23:00 09/24/16 22:41 (NS Flush) 2 ml BID IV FLUSH 09/24/16 09:00 09/25/16 09:00 Naloxone HCl 0.4 mg 0.4 mg UNSCH PRN IV 09/23/16 23:00 Ceftriaxone Sodium 1000 mg/ Sodium Chloride 100 ml @ 200 mls/hr Q24H IV 09/24/16 23:00 09/25/16 00:23 (Zithromax Inj/ NS 250 ml Inj) 250 ml @ 250 mls/hr Q24H IV 09/24/16 23:00 09/24/16 22:41 (Mucinex Er) 600 mg BID PO 09/24/16 09:00 09/24/16 20:27 (Rocaltrol) 0.25 mcg DAILY PO 09/24/16 11:30 09/24/16 12:02 (Plavix) 75 mg DAILY PO 09/24/16 11:30 09/24/16 12:01 (Pravachol) 40 mg DAILY PO 09/24/16 09:00 (Flomax) 0.4 mg HS PO 09/24/16 21:00 09/24/16 20:27 (Isoptin) 120 mg BID PO 09/24/16 11:30 09/24/16 20:28 (Xalatan 0.005% Opth Soln) 1 drop HS EACH EYE 09/24/16 21:00 09/24/16 22:41 (Sodium Bicarbonate) 650 mg Q12HR PO 09/24/16 11:30 09/24/16 20:28 (NS Flush) UNSCH PRN IVF 09/25/16 09:15 (Heparin Inj) UNSCH PRN IV FLUSH 09/25/16 09:15 A/P Assessment and Plan 1. 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 Status post Perm Cath placement today Status of first HD today, removed oral sodium bicarbonate. 2. Pneumonia on Ceftriaxone and Azithromycin, asked for blood culture, Legionella antigen and Pneumococcal antigen. blood culture negative in 48 hours. 3. Hypertension controlled continue home medicines 4. Hyperlipidemia continue Statins 5. COPD stable continue Bronchodilator, Mucolytic and incentive spirometry. 6. Anemia to start Epogen as per Nephrology specialist. DVT prophylaxis with Heparin. Discussed Condition With Patient and Mrs. Jolynn Mcgovern in the room, all questions answered to the best of my abilities. Discharge Planning once cleared by Nephrology specialist Jer German MD Sep 25, 2016 12:39
[2016-09-25] MEDS: guaiFENesin E.R. 600 MG TAB PO SCH ×2 (13:10→21:52)
[2016-09-25] MEDS: CALCITRIOL 0.25 MCG CAP PO SCH (13:11)
[2016-09-25] MEDS: VERAPAMIL HCL 120 MG TAB PO SCH ×2 (13:12→21:52)
[2016-09-25] MEDS: CLOPIDOGREL 75 MG TAB PO SCH (13:13)
[2016-09-25] MEDS: PRAVASTATIN SOD 40 MG TAB PO SCH (13:37)
[2016-09-25] MEDS ORDERED: ACETAMINOPHEN 325 MG TAB PO PRN (14:00)
[2016-09-25] MEDS ORDERED: MANNITOL 12.5 GM/50 ML VIAL IV PRN (14:00)
[2016-09-25] MEDS ORDERED: diphenhydrAMINE HCL 25 MG CAP PO PRN (14:00)
[2016-09-25] MEDS ORDERED: cloNIDine HCL 0.1 MG TAB PO PRN (14:00)
[2016-09-25] MEDS ORDERED: ALBUMIN HUMAN 25% 25 GM/100 ML BAGP IV PRN (14:00)
[2016-09-25] MEDS ORDERED: NS 250 ML IV PRN (14:00)
[2016-09-25] MEDS ORDERED: HEPARIN SODIUM - IV 10,000 UNITS/10 ML VIAL IV FLUSH PRN (14:00)
[2016-09-25] MEDS ORDERED: SODIUM CHLOR 0.9% 1000 ML IV PRN (14:00)
[2016-09-25] MEDS ORDERED: SODIUM CHLORIDE 0.9% FLUSH 10 ML FLUSH IV FLUSH PRN (14:00)
[2016-09-25] MEDS ORDERED: NITROGLYCERIN 0.4 MG SL 25 TABS/BTL SL PRN (14:00)
[2016-09-25] MEDS ORDERED: GELATIN 12 MM/7 MM FOAM TOPICAL PRN (14:00)
--- NOTE | 2016-09-25 16:10 | HHI.NPPN ---
Subjective General Problems: Anemia Renal Failure: Chronic, End Stage Renal Disease Interval History Vas cath was placed. He had first dialysis today. (Jania Gallagher) Review of Systems General Constitutional: Fatigue (Jania Gallagher) Objective Data Data 09/24/16 09/25/16 19:00 07:00 Intake Total 400 ml Balance 400 ml Intake Oral 400 ml # Voids 0 1 # Bowel Movements 0 Vital Signs Date Time Temp Pulse Resp B/P Pulse Ox O2 Delivery O2 Flow Rate FiO2 09/25/16 12:00 97.6 57 18 134/62 95 09/25/16 07:48 98.6 62 20 129/60 96 09/25/16 05:12 98.5 62 18 141/64 93 09/25/16 01:57 98.3 63 19 153/69 95 09/25/16 01:12 67 09/24/16 21:17 98.6 75 16 128/60 93 09/24/16 20:18 97 09/24/16 17:30 98.7 66 22 173/74 95 (Jania Gallagher) -: 09/24/16 0712 09/25/16 0710 Imaging Last 72 hours Impressions Catheter Placement X-Ray 09/25/16 0000 Signed Impressions: Service Date/Time: September 08:45 - CONCLUSION: Uncomplicated line placement as above. This can be converted to a PermCath. Abhishek Fatima Jr., MD Chest X-Ray 09/23/16 2130 Signed Impressions: Service Date/Time: Friday, September 23, 2016 21:48 - CONCLUSION: Mild infiltrate and small pleural effusion at the left lung base. Joe Hdz MD Tubes & Lines: Vas-Cath (Jania Gallagher) Physical Exam General Appearance: Well Developed, Well Nourished, Comfortable (Jania Gallagher) Throat Throat Exam: Oral Mucosa [place] & Moist (Jania Gallagher) Pulmonary Resp Exam: Clear Bilaterally, Breath Sounds Equal (Jania Gallagher) Cardiology CV Exam: Regular, Normal Sinus Rhythm (Jania Gallagher) Gastrointestinal/Abdomen GI Exam: Soft, Non-Tender, Bowel Sounds Present (Jania Gallagher) Musculoskeletal MS Exam: Joints Intact, Normal Gait, Normal Tone (Jania Gallagher) Integumentary Skin Exam: Clear, Warm, Dry, Intact (Jania Gallagher) Extremeties Extremities Exam: No Edema, Pedal Pulses Palpable (Jania Gallagher) Neurologic Neuro Exam: Alert, Awake, Oriented, Speech Clear, Moving All Extremities ( Jania Gallagher) Psychiatric Psych Exam: Appropriate Responses (Jania Gallagher) Assessment/Plan Discussed Condition With: Patient Assessment Summary: Anemia of CKD, End Stage Renal Disease Problem List: (1) Chronic kidney disease Plan: He has CKD 5 with symptoms of uremia vascath placed today, tolerated well (due to plavix dose was unable to have Permcath) 2L fluid removal with HD, repeat HD tomorrow repeat renal panel tomorrow stop oral bicarbonate plan is for PD catheter, may happen next week avoid IVF, encouraged PO intake (2) Pneumonia Plan: he is on Zithromax and rocephin for LLL pneumonia he does have mild leukocytosis monitor clinically (3) Hypertension Plan: BP stable, he is on verapamil (4) Hyperlipidemia Plan: he is on a statin (5) Anemia Plan: He likely has anemia of chronic disease Epogen with HD (Jania Gallagher) Plan patient was seen and examined. Agree with above assessment and plan. Hopefully PD catheter can be placed next week, and he can be discharged with plans for urgent start PD. (Gabriel Salcedo MD) Problem Qualifiers (1) Pneumonia: Qualified Code: J18.1 - Pneumonia of right lower lobe due to infectious organism aJnia Gallagher Sep 25, 2016 16:10 Gabriel Salcedo MD Sep 25, 2016 19:19
[2016-09-25] MEDS: TAMSULOSIN HCL 0.4 MG CAP PO SCH (21:52)
[2016-09-25] MEDS: AZITHROMYCIN INJ 250 MG in SODIUM CHLOR 0.9% 250 ML INJ 250 ML IV SCH (21:54)
[2016-09-25] MEDS: LATANOPROST 0.005% OPHT SOLN 2.5 ML BTL EACH EYE SCH (23:16)
[2016-09-26] VITALS (9 sets, daily range): BP systolic 110–150; BP diastolic 59–68; PULSE 52–66; RESP 16–20; TEMP 96.5–98.3; O2SAT 92–96
[2016-09-26] MEDS: RESP: ALBUTEROL 2.5 MG/IPRATROPIUM 0.5 MG NEB (SCH) NEB ×4 (00:16→21:29)
--- NOTE | 2016-09-26 08:27 | HHI.PR ---
Subjective Remarks This is a pleasant 81 y/o male who came to ER with Weakness for the past week, the patient's called due to weakness and no appetite for the past week. The patient reports that he had a cough for the past week for which he tried some old prednisone that he had for the past two days. He reports that he had no relief with the prednisone. The patient denies any nausea, vomiting, diarrhea, or headache. He does however report some chest pain associated with the coughing. He reports his past medical history includes Hypertension, Hyperlipidemia, He denies any smoking, alcohol, or drug use. has history of Kidney failure, followed by Doctor Osman Long Nephrology specialist, Has also COPD. Seen in his bedroom stable Discussed with Doctor Denisse Nephrology specialist the patient will need Hemodialysis. 09/25: Seen in his bedroom in the presence of Mrs. Jolynn Mcgovern, she had a concern about the antibiotics not been given on time, showed in the computer the ER physician gave him Ceftriaxone and Azithromycin at 23 hours on 09/23/16 when he came and this medicine if used every 24 hours, had his first hemodialysis today, no new issues. 09/26: Stable in his bedroom, status post Vasc Cath placed had first HD yesterday, he will have PD catheter placement for next week and then discharged, seen in his bedroom in the presence of Mrs Jolynn Mcgovern. Objective Vital Signs Date Time Temp Pulse Resp B/P Pulse Ox O2 Delivery O2 Flow Rate FiO2 09/26/16 08:00 96.5 52 20 150/68 95 09/26/16 04:00 97.8 55 16 147/63 95 09/26/16 00:19 93 09/26/16 00:00 97.5 66 18 112/62 93 09/25/16 20:00 98.0 59 16 128/62 94 09/25/16 20:00 61 09/25/16 16:00 96.0 65 16 110/56 96 09/25/16 12:00 97.6 57 18 134/62 95 I/O 09/25/16 09/25/16 09/25/16 09/26/16 09/26/16 09/26/16 07:00 15:00 23:00 07:00 15:00 23:00 Intake Total 1640 ml 120 ml Output Total 2000 ml Balance -2000 ml 1640 ml 120 ml Intake Oral 740 ml 120 ml IV Total 350 ml TPN/PPN 440 ml Lipid 110 ml Output Hemodialysis 2000 ml # Voids 3 0 # Bowel Movements 0 0 Result Diagram: 09/24/16 0712 09/25/16 0710 Imaging Last Impressions Catheter Placement X-Ray 09/25/16 0000 Signed Impressions: Service Date/Time: September 08:45 - CONCLUSION: Uncomplicated line placement as above. This can be converted to a PermCath. Abhishek Fatima Jr., MD Chest X-Ray 09/23/160 Signed Impressions: Service Date/Time: Friday, September 23, 2016 21:48 - CONCLUSION: Mild infiltrate and small pleural effusion at the left lung base. Joe Hdz MD Procedures Perm cath placement and Hemodialysis started 09/25/16 Other Results Laboratory Tests Test 09/23/16 09/23/16 09/24/16 09/25/16 21:50 21:51 07:12 07:10 Lactic Acid Level 1.6 mmol/L Prothrombin Time 12.7 SEC Prothromb Time International 1.1 RATIO Ratio Activated Partial 49.9 SEC Thromboplast Time Total Bilirubin 0.5 MG/DL Aspartate Amino Transf 63 U/L (AST/SGOT) Alanine Aminotransferase 43 U/L (ALT/SGPT) Alkaline Phosphatase 52 U/L Troponin I 0.22 NG/ML B-Type Natriuretic Peptide 400 PG/ML Total Protein 7.1 GM/DL White Blood Count 13.8 TH/MM3 Red Blood Count 2.75 MIL/MM3 Hemoglobin 8.9 GM/DL Hematocrit 25.6 % Mean Corpuscular Volume 93.1 FL Mean Corpuscular Hemoglobin 32.4 PG Mean Corpuscular Hemoglobin 34.8 % Concent Red Cell Distribution Width 13.1 % Platelet Count 156 TH/MM3 Mean Platelet Volume 8.9 FL Neutrophils (%) (Auto) 88.8 % Lymphocytes (%) (Auto) 1.9 % Monocytes (%) (Auto) 9.2 % Eosinophils (%) (Auto) 0.0 % Basophils (%) (Auto) 0.1 % Neutrophils # (Auto) 12.3 TH/MM3 Lymphocytes # (Auto) 0.3 TH/MM3 Monocytes # (Auto) 1.3 TH/MM3 Eosinophils # (Auto) 0.0 TH/MM3 Basophils # (Auto) 0.0 TH/MM3 CBC Comment DIFF FINAL Differential Comment Sodium Level 136 MEQ/L Potassium Level 4.2 MEQ/L Chloride Level 105 MEQ/L Carbon Dioxide Level 17.9 MEQ/L Anion Gap 13 MEQ/L Blood Urea Nitrogen 123 MG/DL Creatinine 7.59 MG/DL Estimat Glomerular Filtration 7 ML/MIN Rate Random Glucose 110 MG/DL Calcium Level 8.6 MG/DL Phosphorus Level 4.9 MG/DL Iron Level 20 MCG/DL Total Iron Binding Capacity 132 MCG/DL Percent Iron Saturation 15.2 % Ferritin 1507 NG/ML Albumin 2.2 GM/DL Objective Remarks GENERAL: NO acute distress. SKIN: Warm and dry. HEAD: Atraumatic. Normocephalic. EYES: Pupils equal and round. No scleral icterus. No injection or drainage. ENT: No nasal bleeding or discharge. Mucous membranes pink and moist. Tongue is midline. No uvula deviation. NECK: Trachea midline. No JVD. CARDIOVASCULAR: Regular rate and rhythm. No S3, S4, or murmurs. RESPIRATORY: No accessory muscle use. Mild rales in the lower lung agrcia. GASTROINTESTINAL: Abdomen soft, non-tender, nondistended. Hepatic and splenic margins not palpable. MUSCULOSKELETAL: Extremities without clubbing, cyanosis, or edema. No obvious deformities. 2+ pulses bilaterally. Range of motion of the upper and lower extremities bilaterally. 2+ pulses bilaterally. NEUROLOGICAL: Awake and alert. No obvious cranial nerve deficits. Motor grossly within normal limits. Five out of 5 muscle strength in the arms and legs. Normal speech. PSYCHIATRIC: Appropriate mood and affect; insight and judgment normal. Medications and IVs Current Medications Medications (Trade) Dose Ordered Sig/Corinna Route Start Time Stop Time Status Last Admin (NS Flush) 2 ml UNSCH PRN IV FLUSH 09/23/16 23:00 09/24/16 22:41 (NS Flush) 2 ml BID IV FLUSH 09/24/16 09:00 09/25/16 21:54 Naloxone HCl 0.4 mg 0.4 mg UNSCH PRN IV 09/23/16 23:00 Ceftriaxone Sodium 1000 mg/ Sodium Chloride 100 ml @ 200 mls/hr Q24H IV 09/24/16 23:00 09/25/16 21:55 (Zithromax Inj/ NS 250 ml Inj) 250 ml @ 250 mls/hr Q24H IV 09/24/16 23:00 09/25/16 21:54 (Mucinex Er) 600 mg BID PO 09/24/16 09:00 09/25/16 21:52 (Rocaltrol) 0.25 mcg DAILY PO 09/24/16 11:30 09/25/16 13:11 (Plavix) 75 mg DAILY PO 09/24/16 11:30 09/25/16 13:13 (Pravachol) 40 mg DAILY PO 09/24/16 09:00 09/25/16 13:37 (Flomax) 0.4 mg HS PO 09/24/16 21:00 09/25/16 21:52 (Isoptin) 120 mg BID PO 09/24/16 11:30 09/25/16 21:52 (Xalatan 0.005% Opth Soln) 1 drop HS EACH EYE 09/24/16 21:00 09/25/16 23:16 (NS Flush) UNSCH PRN IVF 09/25/16 09:15 (Heparin Inj) UNSCH PRN IV FLUSH 09/25/16 09:15 Epoetin Fer 71002 units 10,000 units UNSCH PRN IV 09/25/16 13:45 (NS 1000 ml Inj) 1,000 ml @ 0 mls/hr TITRATE PRN IV 09/25/16 14:00 Heparin Sodium (Porcine) 8000 units 8,000 units UNSCH PRN IV FLUSH 09/25/16 14:00 Sodium Chloride 1,000 ml @ 200 mls/hr Q5H PRN IV 09/25/16 14:00 (NS 250 ml Inj) 200 ml @ 0 mls/hr UNSCH PRN IV 09/25/16 14:00 (Mannitol Inj) 12.5 gm UNSCH PRN IV 09/25/16 14:00 (Albumin 25% Inj) 25 gm UNSCH PRN IV 09/25/16 14:00 (NS Flush) 5 ml UNSCH PRN IV FLUSH 09/25/16 14:00 (Heparin Inj) Dwell Heparin to f... UNSCH PRN OTHER 09/25/16 14:00 (Gentamicin (Dialysis) Inj) 10 mg UNSCH PRN OTHER 09/25/16 14:00 (Gelfoam 12 Mm/7 Mm Top) 1 foam UNSCH PRN TOPICAL 09/25/16 14:00 (Zofran Inj) 4 mg UNSCH PRN IV 09/25/16 14:00 (Benadryl) 25 mg UNSCH PRN PO 09/25/16 14:00 (Nitrostat Sl) 0.4 mg UNSCH PRN SL 09/25/16 14:00 (Catapres) 0.1 mg UNSCH PRN PO 09/25/16 14:00 A/P Assessment and Plan 1. 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 Status post Perm Cath placement, and First HD performed yesterday and had another today. 2. Pneumonia on Ceftriaxone and Azithromycin, asked for blood culture, Legionella antigen and Pneumococcal antigen. blood culture negative in 48 hours. 3. Hypertension controlled continue home medicines 4. Hyperlipidemia continue Statins 5. COPD stable continue Bronchodilator, Mucolytic and incentive spirometry. 6. Anemia to start Epogen as per Nephrology specialist. DVT prophylaxis with Heparin. Discussed Condition With Patient and Mrs. Jloynn Mcgovern in the room, all questions answered to the best of my abilities. Discharge Planning once cleared by Nephrology specialist Jer German MD Sep 26, 2016 08:27
--- NOTE | 2016-09-26 09:42 | HHI.NPPN ---
Subjective General Problems: Anemia Renal Failure: Chronic, End Stage Renal Disease Interval History Seen during his second dialysis treatment. He reports his appetite is poor. ( Jania Gallagher) Review of Systems General Constitutional: Fatigue (Jania Gallagher) Objective Data Data 09/25/16 09/26/16 18:59 06:59 Intake Total 1760 ml Output Total 2000 ml Balance -2000 ml 1760 ml Intake Oral 860 ml IV Total 350 ml TPN/PPN 440 ml Lipid 110 ml Output Hemodialysis 2000 ml # Voids 3 # Bowel Movements 0 Vital Signs Date Time Temp Pulse Resp B/P Pulse Ox O2 Delivery O2 Flow Rate FiO2 09/26/16 08:00 96.5 52 20 150/68 95 09/26/16 04:00 97.8 55 16 147/63 95 09/26/16 00:19 93 09/26/16 00:00 97.5 66 18 112/62 93 09/25/16 20:00 98.0 59 16 128/62 94 09/25/16 20:00 61 09/25/16 16:00 96.0 65 16 110/56 96 09/25/16 12:00 97.6 57 18 134/62 95 (Jania Gallagher) -: 09/24/16 0712 09/25/16 0710 Imaging Last 72 hours Impressions Catheter Placement X-Ray 09/25/16 0000 Signed Impressions: Service Date/Time: September 08:45 - CONCLUSION: Uncomplicated line placement as above. This can be converted to a PermCath. Abhishek Fatima Jr., MD Chest X-Ray 09/23/16 2130 Signed Impressions: Service Date/Time: Friday, September 23, 2016 21:48 - CONCLUSION: Mild infiltrate and small pleural effusion at the left lung base. Joe Hdz MD Tubes & Lines: Vas-Cath (Jania Gallagher) Physical Exam General Appearance: Well Developed, Well Nourished, Comfortable (Jania Gallagher) Throat Throat Exam: Oral Mucosa [place] & Moist (Jania Gallagher) Pulmonary Resp Exam: Clear Bilaterally, Breath Sounds Equal (Jania Gallagher) Cardiology CV Exam: Regular, Normal Sinus Rhythm (Jania Gallagher) Gastrointestinal/Abdomen GI Exam: Soft, Non-Tender, Bowel Sounds Present (Jania Gallagher) Musculoskeletal MS Exam: Joints Intact, Normal Gait, Normal Tone (Jania Gallagher) Integumentary Skin Exam: Clear, Warm, Dry, Intact (Jania Gallagher) Extremeties Extremities Exam: No Edema, Pedal Pulses Palpable (Jania Gallagher) Neurologic Neuro Exam: Alert, Awake, Oriented, Speech Clear, Moving All Extremities ( Jania Gallagher) Psychiatric Psych Exam: Appropriate Responses (Jania Gallagher) Assessment/Plan Discussed Condition With: Patient Assessment Summary: Anemia of CKD, End Stage Renal Disease Problem List: (1) Chronic kidney disease Plan: Presented with advanced renal disease, needing renal replacement therapy vascath placed, first HD yesterday (2L fluid removal) Seen during HD today on a 3K, 350 BFR, goal 3L plan is for PD catheter placement, likely next week; he can then be discharged with plans for rapid start PD avoid IVF, encouraged PO intake ; will start Megace for appetite stimulation obtain intermittent renal panel (2) Pneumonia Plan: he is on Zithromax and rocephin for LLL pneumonia he does have mild leukocytosis monitor clinically (3) Hypertension Plan: BP stable, he is on verapamil (4) Hyperlipidemia Plan: he is on a statin (5) Anemia Plan: He has anemia of chronic disease Epogen ordered with HD (Jania Gallagher) Plan patient was seen and examined. Agree with above assessment and plan. PD catheter hopefully next week. Patient may be depressed. I discussed with his , talked about keeping a positive attitude, and optimism. If he does not improve, may need to consider starting antidepressant. Phosphorus is acceptable. No need for protein restriction. Epogen for anemia. (Gabriel Salcedo MD) Problem Qualifiers (1) Pneumonia: Qualified Code: J18.1 - Pneumonia of right lower lobe due to infectious organism Jania Gallagher Sep 26, 2016 09:41 Gabriel Salcedo MD Sep 26, 2016 20:37
[2016-09-26] MEDS: SODIUM CHLOR 0.9% 1000 ML IV PRN (11:13)
[2016-09-26] MEDS: GENTAMICIN SULFATE (DIALYSIS USE ONLY) 20 MG/2 ML VIAL OTHER PRN (11:13)
[2016-09-26] MEDS: EPOETIN ALFA 10,000 UNITS/ML VIAL IV PRN (11:13)
[2016-09-26] MEDS: HEPARIN SODIUM - IV 10,000 UNITS/10 ML VIAL OTHER PRN (11:13)
[2016-09-26] MEDS: CALCITRIOL 0.25 MCG CAP PO SCH (13:06)
[2016-09-26] MEDS: guaiFENesin E.R. 600 MG TAB PO SCH ×2 (13:06→21:01)
[2016-09-26] MEDS: PRAVASTATIN SOD 40 MG TAB PO SCH (13:07)
[2016-09-26] MEDS: CLOPIDOGREL 75 MG TAB PO SCH (13:07)
[2016-09-26] MEDS: SODIUM CHLORIDE 0.9% FLUSH 10 ML FLUSH IV FLUSH SCH ×2 (13:08→21:00)
[2016-09-26] MEDS: VERAPAMIL HCL 120 MG TAB PO SCH ×2 (13:08→21:02)
[2016-09-26] MEDS: MEGESTROL ACETATE SUSP 400 MG/10 ML CUP PO SCH (17:00)
[2016-09-26] MEDS: LATANOPROST 0.005% OPHT SOLN 2.5 ML BTL EACH EYE SCH (21:00)
[2016-09-26] MEDS: TAMSULOSIN HCL 0.4 MG CAP PO SCH (21:01)
[2016-09-26] MEDS: AZITHROMYCIN INJ 250 MG in SODIUM CHLOR 0.9% 250 ML INJ 250 ML IV SCH (22:59)
[2016-09-26] MEDS: cefTRIAXone INJ 1,000 MG in SODIUM CHLORIDE 0.9% INJ 100 ML IV SCH (22:59)
[2016-09-27] VITALS (7 sets, daily range): BP systolic 112–156; BP diastolic 54–69; PULSE 56–62; RESP 16–18; TEMP 97–98.6; O2SAT 92–98
[2016-09-27] MEDS: RESP: ALBUTEROL 2.5 MG/IPRATROPIUM 0.5 MG NEB (SCH) NEB ×6 (04:00→22:10)
[2016-09-27] MEDS: guaiFENesin E.R. 600 MG TAB PO SCH ×2 (08:11→22:16)
[2016-09-27] MEDS: SODIUM CHLORIDE 0.9% FLUSH 10 ML FLUSH IV FLUSH SCH ×2 (08:11→21:00)
[2016-09-27] MEDS: PRAVASTATIN SOD 40 MG TAB PO SCH (08:11)
[2016-09-27] MEDS: CLOPIDOGREL 75 MG TAB PO SCH (08:11)
[2016-09-27] MEDS: CALCITRIOL 0.25 MCG CAP PO SCH (08:11)
[2016-09-27] MEDS: MEGESTROL ACETATE SUSP 400 MG/10 ML CUP PO SCH (08:11)
[2016-09-27] MEDS: VERAPAMIL HCL 120 MG TAB PO SCH ×2 (08:11→21:00)
--- NOTE | 2016-09-27 10:32 | HHI.PR ---
Subjective Remarks This is a pleasant 81 y/o male who came to ER with Weakness for the past week, the patient's called due to weakness and no appetite for the past week. The patient reports that he had a cough for the past week for which he tried some old prednisone that he had for the past two days. He reports that he had no relief with the prednisone. The patient denies any nausea, vomiting, diarrhea, or headache. He does however report some chest pain associated with the coughing. He reports his past medical history includes Hypertension, Hyperlipidemia, He denies any smoking, alcohol, or drug use. has history of Kidney failure, followed by Doctor Osman Long Nephrology specialist, Has also COPD. Seen in his bedroom stable Discussed with Doctor Denisse Nephrology specialist the patient will need Hemodialysis. 09/25: Seen in his bedroom in the presence of Mrs. Jolynn Mcgovern, she had a concern about the antibiotics not been given on time, showed in the computer the ER physician gave him Ceftriaxone and Azithromycin at 23 hours on 09/23/16 when he came and this medicine if used every 24 hours, had his first hemodialysis today, no new issues. 09/26: Status post perm cath placed and first dialysis performed yesterday and had another today 09/27: Seen in his bedroom in the presence of Mrs. Jolynn Mcgovern, improving his weakness and smiling patient and relative happy with the development and awaiting for Peritoneal Catheter next week to be discharged home. Objective Vital Signs Date Time Temp Pulse Resp B/P Pulse Ox O2 Delivery O2 Flow Rate FiO2 09/27/16 09:08 92 09/27/16 08:00 97.0 56 18 140/61 93 09/27/16 00:00 98.6 57 18 115/54 94 09/26/16 22:38 62 09/26/16 21:31 96 09/26/16 20:00 97.7 55 18 120/59 95 09/26/16 16:00 98.3 64 20 110/63 94 09/26/16 14:00 96.8 61 20 116/60 92 I/O 09/26/16 09/26/16 09/26/16 09/27/16 09/27/16 09/27/16 06:59 14:59 22:59 06:59 14:59 22:59 Intake Total 360 ml 0 ml Output Total 3000 ml Balance 360 ml -3000 ml 0 ml Intake Oral 360 ml IV Total 0 ml Output Hemodialysis 3000 ml # Voids 0 2 # Bowel Movements 0 2 Result Diagram: 09/24/16 0712 09/25/16 0710 Imaging Last Impressions Catheter Placement X-Ray 09/25/16 0000 Signed Impressions: Service Date/Time: September 08:45 - CONCLUSION: Uncomplicated line placement as above. This can be converted to a PermCath. Abhishek Fatima Jr., MD Chest X-Ray 09/23/16 2130 Signed Impressions: Service Date/Time: Friday, September 23, 2016 21:48 - CONCLUSION: Mild infiltrate and small pleural effusion at the left lung base. Joe Hdz MD Procedures Perm cath placement and Hemodialysis started 09/25/16 Other Results Laboratory Tests Test 09/23/16 09/23/16 09/24/16 09/25/16 21:50 21:51 07:12 07:10 Lactic Acid Level 1.6 mmol/L Prothrombin Time 12.7 SEC Prothromb Time International 1.1 RATIO Ratio Activated Partial 49.9 SEC Thromboplast Time Total Bilirubin 0.5 MG/DL Aspartate Amino Transf 63 U/L (AST/SGOT) Alanine Aminotransferase 43 U/L (ALT/SGPT) Alkaline Phosphatase 52 U/L Troponin I 0.22 NG/ML B-Type Natriuretic Peptide 400 PG/ML Total Protein 7.1 GM/DL White Blood Count 13.8 TH/MM3 Red Blood Count 2.75 MIL/MM3 Hemoglobin 8.9 GM/DL Hematocrit 25.6 % Mean Corpuscular Volume 93.1 FL Mean Corpuscular Hemoglobin 32.4 PG Mean Corpuscular Hemoglobin 34.8 % Concent Red Cell Distribution Width 13.1 % Platelet Count 156 TH/MM3 Mean Platelet Volume 8.9 FL Neutrophils (%) (Auto) 88.8 % Lymphocytes (%) (Auto) 1.9 % Monocytes (%) (Auto) 9.2 % Eosinophils (%) (Auto) 0.0 % Basophils (%) (Auto) 0.1 % Neutrophils # (Auto) 12.3 TH/MM3 Lymphocytes # (Auto) 0.3 TH/MM3 Monocytes # (Auto) 1.3 TH/MM3 Eosinophils # (Auto) 0.0 TH/MM3 Basophils # (Auto) 0.0 TH/MM3 CBC Comment DIFF FINAL Differential Comment Sodium Level 136 MEQ/L Potassium Level 4.2 MEQ/L Chloride Level 105 MEQ/L Carbon Dioxide Level 17.9 MEQ/L Anion Gap 13 MEQ/L Blood Urea Nitrogen 123 MG/DL Creatinine 7.59 MG/DL Estimat Glomerular Filtration 7 ML/MIN Rate Random Glucose 110 MG/DL Calcium Level 8.6 MG/DL Phosphorus Level 4.9 MG/DL Iron Level 20 MCG/DL Total Iron Binding Capacity 132 MCG/DL Percent Iron Saturation 15.2 % Ferritin 1507 NG/ML Albumin 2.2 GM/DL Test 09/25/16 11:30 Hepatitis A IgM Antibody NEGATIVE Hepatitis B Surface Antigen NEGATIVE Hepatitis B Core IgM Antibody NEGATIVE Hepatitis C Antibody NEGATIVE Objective Remarks GENERAL: NO acute distress. SKIN: Warm and dry. HEAD: Atraumatic. Normocephalic. EYES: Pupils equal and round. No scleral icterus. No injection or drainage. ENT: No nasal bleeding or discharge. Mucous membranes pink and moist. Tongue is midline. No uvula deviation. NECK: Trachea midline. No JVD. CARDIOVASCULAR: Regular rate and rhythm. No S3, S4, or murmurs. RESPIRATORY: No accessory muscle use. Mild rales in the lower lung garcia. GASTROINTESTINAL: Abdomen soft, non-tender, nondistended. Hepatic and splenic margins not palpable. MUSCULOSKELETAL: Extremities without clubbing, cyanosis, or edema. No obvious deformities. 2+ pulses bilaterally. Range of motion of the upper and lower extremities bilaterally. 2+ pulses bilaterally. NEUROLOGICAL: Awake and alert. No obvious cranial nerve deficits. Motor grossly within normal limits. Five out of 5 muscle strength in the arms and legs. Normal speech. PSYCHIATRIC: Appropriate mood and affect; insight and judgment normal. Medications and IVs Current Medications Medications (Trade) Dose Ordered Sig/[place] Route Start Time Stop Time Status Last Admin (NS Flush) 2 ml UNSCH PRN IV FLUSH 09/23/16 23:00 09/24/16 22:41 (NS Flush) 2 ml BID IV FLUSH 09/24/16 09:00 09/27/16 08:11 Naloxone HCl 0.4 mg 0.4 mg UNSCH PRN IV 09/23/16 23:00 Ceftriaxone Sodium 1000 mg/ Sodium Chloride 100 ml @ 200 mls/hr Q24H IV 09/24/16 23:00 09/26/16 22:59 (Zithromax Inj/ NS 250 ml Inj) 250 ml @ 250 mls/hr Q24H IV 09/24/16 23:00 09/26/16 22:59 (Mucinex Er) 600 mg BID PO 09/24/16 09:00 09/27/16 08:11 (Rocaltrol) 0.25 mcg DAILY PO 09/24/16 11:30 09/27/16 08:11 (Plavix) 75 mg DAILY PO 09/24/16 11:30 09/27/16 08:11 (Pravachol) 40 mg DAILY PO 09/24/16 09:00 09/27/16 08:11 (Flomax) 0.4 mg HS PO 09/24/16 21:00 09/26/16 21:01 (Isoptin) 120 mg BID PO 09/24/16 11:30 09/27/16 08:11 (Xalatan 0.005% Opth Soln) 1 drop HS EACH EYE 09/24/16 21:00 09/26/16 21:00 (NS Flush) UNSCH PRN IVF 09/25/16 09:15 (Heparin Inj) UNSCH PRN IV FLUSH 09/25/16 09:15 Epoetin Fer 15169 units 10,000 units UNSCH PRN IV 09/25/16 13:45 09/26/16 11:13 (NS 1000 ml Inj) 1,000 ml @ 0 mls/hr TITRATE PRN IV 09/25/16 14:00 09/26/16 11:13 Heparin Sodium (Porcine) 8000 units 8,000 units UNSCH PRN IV FLUSH 09/25/16 14:00 Sodium Chloride 1,000 ml @ 200 mls/hr Q5H PRN IV 09/25/16 14:00 (NS 250 ml Inj) 200 ml @ 0 mls/hr UNSCH PRN IV 09/25/16 14:00 (Mannitol Inj) 12.5 gm UNSCH PRN IV 09/25/16 14:00 (Albumin 25% Inj) 25 gm UNSCH PRN IV 09/25/16 14:00 (NS Flush) 5 ml UNSCH PRN IV FLUSH 09/25/16 14:00 (Heparin Inj) Dwell Heparin to f... UNSCH PRN OTHER 09/25/16 14:00 09/26/16 11:13 (Gentamicin (Dialysis) Inj) 10 mg UNSCH PRN OTHER 09/25/16 14:00 09/26/16 11:13 (Gelfoam 12 Mm/7 Mm Top) 1 foam UNSCH PRN TOPICAL 09/25/16 14:00 (Zofran Inj) 4 mg UNSCH PRN IV 09/25/16 14:00 (Benadryl) 25 mg UNSCH PRN PO 09/25/16 14:00 (Nitrostat Sl) 0.4 mg UNSCH PRN SL 09/25/16 14:00 (Catapres) 0.1 mg UNSCH PRN PO 09/25/16 14:00 (Megace Liq) 800 mg DAILY PO 09/26/16 17:00 09/27/16 08:11 A/P Assessment and Plan 1. 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 Status post Perm Cath placement today Status of first HD and today had another one he is waiting for Peritoneal dialysis cath to be placed next week and will be discharged home. 2. Pneumonia on Ceftriaxone and Azithromycin, asked for blood culture, Legionella antigen and Pneumococcal antigen. blood culture negative in 48 hours. 3. Hypertension controlled continue home medicines 4. Hyperlipidemia continue Statins 5. COPD stable continue Bronchodilator, Mucolytic and incentive spirometry. 6. Anemia to start Epogen as per Nephrology specialist. DVT prophylaxis with Heparin. Discussed Condition With Patient and Mrs. Jolynn Mcgovern in the room, all questions answered to the best of my abilities. Discharge Planning once cleared by Nephrology specialist Jer German MD Sep 27, 2016 10:31
--- NOTE | 2016-09-27 17:08 | HHI.NPPN ---
Subjective General Problems: Anemia Renal Failure: Chronic, End Stage Renal Disease Additional Remarks No acute complaints Review of Systems General Constitutional: Fatigue Objective Data Data 09/26/16 09/27/16 19:00 07:00 Intake Total 0 ml Output Total 3000 ml Balance -3000 ml 0 ml IV Total 0 ml Hemodialysis 3000 ml # Voids 2 # Bowel Movements 2 Vital Signs Date Time Temp Pulse Resp B/P Pulse Ox O2 Delivery O2 Flow Rate FiO2 09/27/16 16:00 97.5 60 17 156/69 96 09/27/16 12:00 97.7 62 18 112/56 98 09/27/16 09:08 92 09/27/16 08:00 97.0 56 18 140/61 93 09/27/16 00:00 98.6 57 18 115/54 94 09/26/16 22:38 62 09/26/16 21:31 96 09/26/16 20:00 97.7 55 18 120/59 95 -: 09/24/16 0712 09/25/16 0710 Tubes & Lines: Vas-Cath Physical Exam General Appearance: Well Developed, Well Nourished, Comfortable Throat Throat Exam: Oral Mucosa [place] & Moist Pulmonary Resp Exam: Clear Bilaterally, Breath Sounds Equal Cardiology CV Exam: Regular, Normal Sinus Rhythm Gastrointestinal/Abdomen GI Exam: Soft, Non-Tender, Bowel Sounds Present Musculoskeletal MS Exam: Joints Intact, Normal Gait, Normal Tone Integumentary Skin Exam: Clear, Warm, Dry, Intact Extremeties Extremities Exam: No Edema, Pedal Pulses Palpable Neurologic Neuro Exam: Alert, Awake, Oriented, Speech Clear, Moving All Extremities Psychiatric Psych Exam: Appropriate Responses Assessment/Plan Discussed Condition With: Patient Assessment Summary: Anemia of CKD, End Stage Renal Disease Problem List: (1) Chronic kidney disease Plan: Presented with advanced renal disease, needing renal replacement therapy vascat placed and had HD 09/25, 09/26. Will plan for next HD Thursday. plan is for PD catheter placement, likely next week; he can then be discharged with plans for rapid start PD May need tunneled HD catheter early next week based on arrangments for rapid PD start. Volume status stable, check AM labs. avoid IVF, encouraged PO intake ; ont Megace for appetite stimulation obtain intermittent renal panel (2) Pneumonia Plan: he is on Zithromax and rocephin for LLL pneumonia he does have mild leukocytosis monitor clinically (3) Hypertension Plan: BP stable, he is on verapamil (4) Hyperlipidemia Plan: he is on a statin (5) Anemia Plan: He has anemia of chronic disease Epogen ordered with HD Problem Qualifiers (1) Pneumonia: Qualified Code: J18.1 - Pneumonia of right lower lobe due to infectious organism Timmy Long MD Sep 27, 2016 17:08
[2016-09-27] MEDS: LATANOPROST 0.005% OPHT SOLN 2.5 ML BTL EACH EYE SCH (21:00)
[2016-09-27] MEDS: TAMSULOSIN HCL 0.4 MG CAP PO SCH (22:16)
[2016-09-27] MEDS: cefTRIAXone INJ 1,000 MG in SODIUM CHLORIDE 0.9% INJ 100 ML IV SCH (22:17)
[2016-09-28] VITALS (9 sets, daily range): BP systolic 114–196; BP diastolic 63–86; PULSE 53–75; RESP 16–18; TEMP 96.3–98; O2SAT 92–96
[2016-09-28] MEDS: AZITHROMYCIN INJ 250 MG in SODIUM CHLOR 0.9% 250 ML INJ 250 ML IV SCH ×2 (00:07→22:58)
[2016-09-28 04:32] LABS: AUTOMATED NEUTROPHIL # 5.8 TH/MM3 (1.8-7.7); BASOPHIL % 0.4 % (0.0-2.0); EOSINOPHIL # 0.2 TH/MM3 (0-0.4); EOSINOPHIL % 3.3 % (0.0-4.0); HEMATOCRIT 27.5 % (39.0-51.0); HEMO FLAGS DIFF FINAL; LYMPH % 9.2 % (9.0-44.0); LYMPHOCYTE # 0.7 TH/MM3 (1.0-4.8); MEAN CELL VOLUME 95.4 FL (80.0-100.0); MEAN CORPUSCULAR HGB CONC 34.6 % (32.0-36.0); MONO % 7.2 % (0.0-8.0); NEUT % 79.9 % (16.0-70.0); PLATELET COUNT 127 TH/MM3 (150-450); RED BLOOD COUNT 2.89 MIL/MM3 (4.50-5.90); RED CELL DISTRIBUTION WIDTH 13.5 % (11.6-17.2); WHITE BLOOD COUNT 7.2 TH/MM3 (4.0-11.0)
[2016-09-28 05:01] LABS: ALKALINE PHOSPHATASE 53 U/L (45-117); ALT (GPT) 67 U/L (12-78); ANION GAP 12 MEQ/L (5-15); AST (GOT) 35 U/L (15-37); BICARBONATE 24.8 MEQ/L (21.0-32.0); BLOOD UREA NITROGEN 78 MG/DL (7-18); CHLORIDE 101 MEQ/L (98-107); GLOMERULAR FILTRATION RATE 9 ML/MIN (>89); MAGNESIUM 2.4 MG/DL (1.5-2.5); POTASSIUM 3.5 MEQ/L (3.5-5.1); SODIUM (NA) 138 MEQ/L (136-145); TOTAL BILIRUBIN ADULT 0.4 MG/DL (0.2-1.0)
--- NOTE | 2016-09-28 06:46 | HHI.PR ---
Subjective Remarks This is a pleasant 81 y/o male who came to ER with Weakness for the past week, the patient's called due to weakness and no appetite for the past week. The patient reports that he had a cough for the past week for which he tried some old prednisone that he had for the past two days. He reports that he had no relief with the prednisone. The patient denies any nausea, vomiting, diarrhea, or headache. He does however report some chest pain associated with the coughing. He reports his past medical history includes Hypertension, Hyperlipidemia, He denies any smoking, alcohol, or drug use. has history of Kidney failure, followed by Doctor Osman Long Nephrology specialist, Has also COPD. Seen in his bedroom stable Discussed with Doctor Denisse Nephrology specialist the patient will need Hemodialysis. 09/25: Seen in his bedroom in the presence of Mrs. Jolynn Mcgovern, she had a concern about the antibiotics not been given on time, showed in the computer the ER physician gave him Ceftriaxone and Azithromycin at 23 hours on 09/23/16 when he came and this medicine if used every 24 hours, had his first hemodialysis today, no new issues. 09/26: Status post perm cath placed and first dialysis performed yesterday and had another today 09/27: Seen in his bedroom in the presence of Mrs. Jolynn Mcgovern, improving his weakness and smiling patient and relative happy with the development and awaiting for Peritoneal Catheter next week to be discharged home. 09/28: Stable in his bedroom, no complaint, awaiting final recommendations by Nephrology specialist for discharge No nausea, vomit or diarrhea. Objective Vital Signs Date Time Temp Pulse Resp B/P Pulse Ox O2 Delivery O2 Flow Rate FiO2 09/28/16 00:00 97.1 75 16 114/63 93 09/28/16 00:00 53 09/27/16 22:13 92 09/27/16 20:00 97.8 56 16 146/65 95 09/27/16 16:00 97.5 60 17 156/69 96 09/27/16 12:00 97.7 62 18 112/56 98 09/27/16 09:08 92 09/27/16 08:00 97.0 56 18 140/61 93 I/O 09/27/16 09/27/16 09/27/16 09/28/16 09/28/1617 06:59 14:59 22:59 06:59 14:59 22:59 Intake Total 240 ml Output Total 0 ml 425 ml Balance 240 ml -425 ml Intake Oral 240 ml Output Urine Total 0 ml 425 ml # Voids 0 1 # Bowel Movements 0 1 Result Diagram: 09/28/16 0340 09/28/16 0310 Imaging Last Impressions Catheter Placement X-Ray 09/25/16 0000 Signed Impressions: Service Date/Time: September 08:45 - CONCLUSION: Uncomplicated line placement as above. This can be converted to a PermCath. Abhishek Fatima Jr., MD Chest X-Ray 09/23/160 Signed Impressions: Service Date/Time: Friday, September 23, 2016 21:48 - CONCLUSION: Mild infiltrate and small pleural effusion at the left lung base. Joe Hdz MD Procedures Perm cath placement and Hemodialysis started 09/25/16 Other Results Laboratory Tests Test 09/25/16 09/25/16 09/28/16 09/28/16 07:10 11:30 03:10 03:40 Iron Level 20 MCG/DL Total Iron Binding Capacity 132 MCG/DL Percent Iron Saturation 15.2 % Ferritin 1507 NG/ML Hepatitis A IgM Antibody NEGATIVE Hepatitis B Surface Antigen NEGATIVE Hepatitis B Core IgM Antibody NEGATIVE Hepatitis C Antibody NEGATIVE Sodium Level 138 MEQ/L Potassium Level 3.5 MEQ/L Chloride Level 101 MEQ/L Carbon Dioxide Level 24.8 MEQ/L Anion Gap 12 MEQ/L Blood Urea Nitrogen 78 MG/DL Creatinine 5.85 MG/DL Estimat Glomerular Filtration 9 ML/MIN Rate Random Glucose 95 MG/DL Calcium Level 9.0 MG/DL Phosphorus Level 3.9 MG/DL Magnesium Level 2.4 MG/DL Total Bilirubin 0.4 MG/DL Aspartate Amino Transf 35 U/L (AST/SGOT) Alanine Aminotransferase 67 U/L (ALT/SGPT) Alkaline Phosphatase 53 U/L Total Protein 6.1 GM/DL Albumin 2.3 GM/DL White Blood Count 7.2 TH/MM3 Red Blood Count 2.89 MIL/MM3 Hemoglobin 9.5 GM/DL Hematocrit 27.5 % Mean Corpuscular Volume 95.4 FL Mean Corpuscular Hemoglobin 33.0 PG Mean Corpuscular Hemoglobin 34.6 % Concent Red Cell Distribution Width 13.5 % Platelet Count 127 TH/MM3 Mean Platelet Volume 8.2 FL Neutrophils (%) (Auto) 79.9 % Lymphocytes (%) (Auto) 9.2 % Monocytes (%) (Auto) 7.2 % Eosinophils (%) (Auto) 3.3 % Basophils (%) (Auto) 0.4 % Neutrophils # (Auto) 5.8 TH/MM3 Lymphocytes # (Auto) 0.7 TH/MM3 Monocytes # (Auto) 0.5 TH/MM3 Eosinophils # (Auto) 0.2 TH/MM3 Basophils # (Auto) 0.0 TH/MM3 CBC Comment DIFF FINAL Differential Comment Objective Remarks GENERAL: NO acute distress. SKIN: Warm and dry. HEAD: Atraumatic. Normocephalic. EYES: Pupils equal and round. No scleral icterus. No injection or drainage. ENT: No nasal bleeding or discharge. Mucous membranes pink and moist. Tongue is midline. No uvula deviation. NECK: Trachea midline. No JVD. CARDIOVASCULAR: Regular rate and rhythm. No S3, S4, or murmurs. RESPIRATORY: No accessory muscle use. Mild rales in the lower lung garcia. GASTROINTESTINAL: Abdomen soft, non-tender, nondistended. Hepatic and splenic margins not palpable. MUSCULOSKELETAL: Extremities without clubbing, cyanosis, or edema. No obvious deformities. 2+ pulses bilaterally. NEUROLOGICAL: Awake and alert. No obvious cranial nerve deficits. PSYCHIATRIC: Appropriate mood and affect; insight and judgment normal. Medications and IVs Current Medications Medications (Trade) Dose Ordered Sig/[place] Route Start Time Stop Time Status Last Admin (NS Flush) 2 ml UNSCH PRN IV FLUSH 09/23/16 23:00 09/24/16 22:41 (NS Flush) 2 ml BID IV FLUSH 09/24/16 09:00 09/27/16 21:00 Naloxone HCl 0.4 mg 0.4 mg UNSCH PRN IV 09/23/16 23:00 Ceftriaxone Sodium 1000 mg/ Sodium Chloride 100 ml @ 200 mls/hr Q24H IV 09/24/16 23:00 09/27/16 22:17 (Zithromax Inj/ NS 250 ml Inj) 250 ml @ 250 mls/hr Q24H IV 09/24/16 23:00 09/28/16 00:07 (Mucinex Er) 600 mg BID PO 09/24/16 09:00 09/27/16 22:16 (Rocaltrol) 0.25 mcg DAILY PO 09/24/16 11:30 09/27/16 08:11 (Plavix) 75 mg DAILY PO 09/24/16 11:30 09/27/16 08:11 (Pravachol) 40 mg DAILY PO 09/24/16 09:00 09/27/16 08:11 (Flomax) 0.4 mg HS PO 09/24/16 21:00 09/27/16 22:16 (Isoptin) 120 mg BID PO 09/24/16 11:30 09/27/16 08:11 (Xalatan 0.005% Opth Soln) 1 drop HS EACH EYE 09/24/16 21:00 09/27/16 21:00 (NS Flush) UNSCH PRN IVF 09/25/16 09:15 (Heparin Inj) UNSCH PRN IV FLUSH 09/25/16 09:15 [place]poetin Fer 97562 units 10,000 units UNSCH PRN IV 09/25/16 13:45 09/26/16 11:13 (NS 1000 ml Inj) 1,000 ml @ 0 mls/hr TITRATE PRN IV 09/25/16 14:00 09/26/16 11:13 Heparin Sodium (Porcine) 8000 units 8,000 units UNSCH PRN IV FLUSH 09/25/16 14:00 Sodium Chloride 1,000 ml @ 200 mls/hr Q5H PRN IV 09/25/16 14:00 (NS 250 ml Inj) 200 ml @ 0 mls/hr UNSCH PRN IV 09/25/16 14:00 (Mannitol Inj) 12.5 gm UNSCH PRN IV 09/25/16 14:00 (Albumin 25% Inj) 25 gm UNSCH PRN IV 09/25/16 14:00 (NS Flush) 5 ml UNSCH PRN IV FLUSH 09/25/16 14:00 (Heparin Inj) Dwell Heparin to f... UNSCH PRN OTHER 09/25/16 14:00 09/26/16 11:13 (Gentamicin (Dialysis) Inj) 10 mg UNSCH PRN OTHER 09/25/16 14:00 09/26/16 11:13 (Gelfoam 12 Mm/7 Mm Top) 1 foam UNSCH PRN TOPICAL 09/25/16 14:00 (Zofran Inj) 4 mg UNSCH PRN IV 09/25/16 14:00 (Benadryl) 25 mg UNSCH PRN PO 09/25/16 14:00 (Nitrostat Sl) 0.4 mg UNSCH PRN SL 09/25/16 14:00 (Catapres) 0.1 mg UNSCH PRN PO 09/25/16 14:00 (Megace Liq) 800 mg DAILY PO 09/26/16 17:00 09/27/16 08:11 A/P Assessment and Plan 1. 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 Status post Perm Cath placement today Status of first HD and today had another one he is waiting for Peritoneal dialysis cath to be placed next week and will be discharged home. 2. Pneumonia on Ceftriaxone and Azithromycin, blood culture negative will continue present antibiotics until tomorrow follow new CXR in am tomorrow if okay will continue Azithromycin for three more days and discontinue. 3. Hypertension controlled continue home medicines 4. Hyperlipidemia continue Statins 5. COPD stable continue Bronchodilator, Mucolytic and incentive spirometry. 6. Anemia to start Epogen as per Nephrology specialist. DVT prophylaxis with Heparin. Discussed Condition With Patient, all questions answered to the best of my abilities. Discharge Planning once cleared by Nephrology specialist Jer German MD Sep 28, 2016 06:46
[2016-09-28] MEDS: guaiFENesin E.R. 600 MG TAB PO SCH ×2 (07:30→21:00)
[2016-09-28] MEDS: CLOPIDOGREL 75 MG TAB PO SCH (07:30)
[2016-09-28] MEDS: VERAPAMIL HCL 120 MG TAB PO SCH ×2 (07:30→21:52)
[2016-09-28] MEDS: CALCITRIOL 0.25 MCG CAP PO SCH (07:30)
[2016-09-28] MEDS: PRAVASTATIN SOD 40 MG TAB PO SCH (07:30)
[2016-09-28] MEDS: SODIUM CHLORIDE 0.9% FLUSH 10 ML FLUSH IV FLUSH SCH ×2 (07:31→21:52)
[2016-09-28] MEDS: MEGESTROL ACETATE SUSP 400 MG/10 ML CUP PO SCH (07:31)
[2016-09-28] MEDS: RESP: ALBUTEROL 2.5 MG/IPRATROPIUM 0.5 MG NEB (SCH) NEB ×3 (09:03→13:00)
--- NOTE | 2016-09-28 19:00 | HHI.NPPN ---
Subjective General Problems: Anemia Renal Failure: Chronic, End Stage Renal Disease Additional Remarks No acute complaints Review of Systems General Constitutional: Fatigue Objective Data Data 09/28/16 09/29/16 19:00 07:00 Intake Total 436 ml Balance 436 ml Intake Oral 436 ml # Voids 2 # Bowel Movements 0 Vital Signs Date Time Temp Pulse Resp B/P (MAP) Pulse Ox O2 Delivery O2 Flow Rate FiO2 09/28/16 16:00 96.7 66 16 147/68 (94) 96 09/28/16 12:00 97.3 62 18 150/69 (96) 94 09/28/16 09:05 92 21 09/28/16 08:05 182/86 (118) 09/28/16 08:00 98.0 56 16 196/85 (122) 09/28/16 00:00 97.1 75 16 114/63 (80) 93 09/28/16 00:00 53 09/27/16 22:13 92 09/27/16 20:00 97.8 56 16 146/65 (92) 95 -: 09/28/16 0340 09/28/16 0310 Tubes & Lines: Vas-Cath Physical Exam General Appearance: Well Developed, Well Nourished, Comfortable Throat Throat Exam: Oral Mucosa [place] & Moist Pulmonary Resp Exam: Clear Bilaterally, Breath Sounds Equal Cardiology CV Exam: Regular, Normal Sinus Rhythm Gastrointestinal/Abdomen GI Exam: Soft, Non-Tender, Bowel Sounds Present Musculoskeletal MS Exam: Joints Intact, Normal Gait, Normal Tone Integumentary Skin Exam: Clear, Warm, Dry, Intact Extremeties Extremities Exam: No Edema, Pedal Pulses Palpable Neurologic Neuro Exam: Alert, Awake, Oriented, Speech Clear, Moving All Extremities Psychiatric Psych Exam: Appropriate Responses Assessment/Plan Discussed Condition With: Patient Assessment Summary: Anemia of CKD, End Stage Renal Disease Problem List: (1) Chronic kidney disease ICD Codes: N18.9 - Chronic kidney disease Status: Acute Plan: Presented with advanced renal disease, needing renal replacement therapy vascath placed and had HD 09/25, 09/26. Will plan for next HD Thursday. plan is for PD catheter placement, likely this week; he can then be discharged with plans for rapid start PD May need tunneled HD catheter early next week based on arrangements for rapid PD start. Volume status stable, check AM labs. avoid IVF, encouraged PO intake ; on Megace for appetite stimulation obtain intermittent renal panel Patient is interested in taking cruises with PD, he and his actively travel. Will need to eventual evaluate travel logistics with outpatient PD staff. (2) Pneumonia ICD Codes: J18.9 - Pneumonia Status: Acute Plan: he is on Zithromax and rocephin for LLL pneumonia he does have mild leukocytosis monitor clinically (3) Hypertension ICD Codes: I10 - Hypertension Status: Chronic Plan: BP stable, he is on verapamil (4) Hyperlipidemia ICD Codes: E78.5 - Hyperlipidemia Status: Chronic Plan: he is on a statin (5) Anemia ICD Codes: D64.9 - Anemia, unspecified Status: Acute Plan: He has anemia of chronic disease Epogen ordered with HD Problem Qualifiers (1) Pneumonia: Timmy Long MD Sep 28, 2016 19:00
[2016-09-28] MEDS: LATANOPROST 0.005% OPHT SOLN 2.5 ML BTL EACH EYE SCH (21:00)
[2016-09-28] MEDS: ONDANSETRON HCL 4 MG/2 ML VIAL IV PRN (21:00)
[2016-09-28] MEDS: TAMSULOSIN HCL 0.4 MG CAP PO SCH (21:00)
[2016-09-28] MEDS: cefTRIAXone INJ 1,000 MG in SODIUM CHLORIDE 0.9% INJ 100 ML IV SCH (21:52)
[2016-09-29] VITALS (8 sets, daily range): BP systolic 127–203; BP diastolic 62–90; PULSE 63–76; RESP 16–20; TEMP 96.9–98.7; O2SAT 93–97
[2016-09-29] MEDS: ONDANSETRON HCL 4 MG/2 ML VIAL IV PRN (04:09)
[2016-09-29] MEDS: VERAPAMIL HCL 120 MG TAB PO SCH ×2 (05:56→21:14)
[2016-09-29] MEDS: MEGESTROL ACETATE SUSP 400 MG/10 ML CUP PO SCH (08:19)
[2016-09-29] MEDS: guaiFENesin E.R. 600 MG TAB PO SCH ×2 (08:19→21:14)
[2016-09-29] MEDS: PRAVASTATIN SOD 40 MG TAB PO SCH (08:19)
[2016-09-29 08:20] LABS: AUTOMATED NEUTROPHIL # 11.9 TH/MM3 (1.8-7.7); BASOPHIL % 0.2 % (0.0-2.0); EOSINOPHIL # 0.1 TH/MM3 (0-0.4); EOSINOPHIL % 0.5 % (0.0-4.0); HEMATOCRIT 30.8 % (39.0-51.0); LYMPH % 2.8 % (9.0-44.0); LYMPHOCYTE # 0.4 TH/MM3 (1.0-4.8); MEAN CELL VOLUME 93.9 FL (80.0-100.0); MEAN CORPUSCULAR HEMOGLOBIN 31.8 PG (27.0-34.0); MEAN CORPUSCULAR HGB CONC 33.9 % (32.0-36.0); MONO % 6.3 % (0.0-8.0); NEUT % 90.2 % (16.0-70.0); PLATELET COUNT 73 TH/MM3 (150-450); RED BLOOD COUNT 3.28 MIL/MM3 (4.50-5.90); RED CELL DISTRIBUTION WIDTH 13.1 % (11.6-17.2); WHITE BLOOD COUNT 13.2 TH/MM3 (4.0-11.0)
[2016-09-29] MEDS: CLOPIDOGREL 75 MG TAB PO SCH (08:20)
[2016-09-29] MEDS: CALCITRIOL 0.25 MCG CAP PO SCH (08:20)
[2016-09-29] MEDS: SODIUM CHLORIDE 0.9% FLUSH 10 ML FLUSH IV FLUSH SCH ×2 (08:20→21:15)
--- NOTE | 2016-09-29 08:25 | HHI.PR ---
Subjective Remarks This is a pleasant 81 y/o male who came to ER with Weakness for the past week, the patient's called due to weakness and no appetite for the past week. The patient reports that he had a cough for the past week for which he tried some old prednisone that he had for the past two days. He reports that he had no relief with the prednisone. The patient denies any nausea, vomiting, diarrhea, or headache. He does however report some chest pain associated with the coughing. He reports his past medical history includes Hypertension, Hyperlipidemia, He denies any smoking, alcohol, or drug use. has history of Kidney failure, followed by Doctor Osman Long Nephrology specialist, Has also COPD. Seen in his bedroom stable Discussed with Doctor Denisse Nephrology specialist the patient will need Hemodialysis. 09/25: Seen in his bedroom in the presence of Mrs. Jolynn Mcgovern, she had a concern about the antibiotics not been given on time, showed in the computer the ER physician gave him Ceftriaxone and Azithromycin at 23 hours on 09/23/16 when he came and this medicine if used every 24 hours, had his first hemodialysis today, no new issues. 09/26: Status post perm cath placed and first dialysis performed yesterday and another today. 09/27: Seen in his bedroom in the presence of Mrs. Jolynn Mcgovern, improving his weakness and smiling patient and relative happy with the development and awaiting for Peritoneal Catheter next week to be discharged home. 09/28: No changes. 09/29: Status post hemodialysis today, at this time will go for CXR he will have Peritoneal Dialysis Cath placed tomorrow, discussed with his Daughter Mrs. Jolynn Mcgovern and she states her father is not eating properly offered Megestrol. Objective Vital Signs Date Time Temp Pulse Resp B/P (MAP) Pulse Ox O2 Delivery O2 Flow Rate FiO2 09/29/16 06:03 203/90 (127) 09/29/16 00:00 98.7 70 16 157/70 (99) 93 09/28/16 21:00 190/80 (116) 09/28/16 20:03 65 09/28/16 20:00 96.3 66 18 95 09/28/16 16:00 96.7 66 16 147/68 (94) 96 09/28/16 12:00 97.3 62 18 150/69 (96) 94 09/28/16 09:05 92 21 I/O 09/28/16 09/28/16 09/28/16 09/29/16 09/29/16 09/29/16 07:00 15:00 23:00 07:00 15:00 23:00 Intake Total 436 ml Balance 436 ml Intake Oral 436 ml # Voids 1 2 1 # Bowel Movements 0 Result Diagram: 09/28/16 0340 09/28/16 0310 Imaging Last Impressions Catheter Placement X-Ray 09/25/16 0000 Signed Impressions: Service Date/Time: September 08:45 - CONCLUSION: Uncomplicated line placement as above. This can be converted to a PermCath. Abhishek Fatima Jr., MD Chest X-Ray 09/23/160 Signed Impressions: Service Date/Time: Friday, September 23, 2016 21:48 - CONCLUSION: Mild infiltrate and small pleural effusion at the left lung base. Jeo Hdz MD Procedures Perm cath placement and Hemodialysis started 09/25/16 Other Results Laboratory Tests Test 09/23/16 21:50 09/23/16 21:51 09/25/16 07:10 09/25/16 11:30 Lactic Acid Level 1.6 mmol/L Prothrombin Time 12.7 SEC Prothromb Time International Ratio 1.1 RATIO Activated Partial Thromboplast Time 49.9 SEC Troponin I 0.22 NG/ML B-Type Natriuretic Peptide 400 PG/ML Iron Level 20 MCG/DL Total Iron Binding Capacity 132 MCG/DL Percent Iron Saturation 15.2 % Ferritin 1507 NG/ML Hepatitis A IgM Antibody NEGATIVE Hepatitis B Surface Antigen NEGATIVE Hepatitis B Core IgM Antibody NEGATIVE Hepatitis C Antibody NEGATIVE Test 09/28/16 03:10 09/29/16 06:41 Blood Urea Nitrogen 78 MG/DL 79 MG/DL Creatinine 5.85 MG/DL 6.67 MG/DL Random Glucose 95 MG/DL 114 MG/DL Total Protein 6.1 GM/DL Albumin 2.3 GM/DL Calcium Level 9.0 MG/DL 9.5 MG/DL Phosphorus Level 3.9 MG/DL Magnesium Level 2.4 MG/DL Alkaline Phosphatase 53 U/L Aspartate Amino Transf (AST/SGOT) 35 U/L Alanine Aminotransferase (ALT/SGPT) 67 U/L Total Bilirubin 0.4 MG/DL Sodium Level 138 MEQ/L 140 MEQ/L Potassium Level 3.5 MEQ/L 3.5 MEQ/L Chloride Level 101 MEQ/L 104 MEQ/L Carbon Dioxide Level 24.8 MEQ/L 24.2 MEQ/L White Blood Count 13.2 TH/MM3 Red Blood Count 3.28 MIL/MM3 Hemoglobin 10.5 GM/DL Hematocrit 30.8 % Mean Corpuscular Volume 93.9 FL Mean Corpuscular Hemoglobin 31.8 PG Mean Corpuscular Hemoglobin Concent 33.9 % Red Cell Distribution Width 13.1 % Platelet Count 73 TH/MM3 Mean Platelet Volume 8.6 FL Neutrophils (%) (Auto) 90.2 % Lymphocytes (%) (Auto) 2.8 % Monocytes (%) (Auto) 6.3 % Eosinophils (%) (Auto) 0.5 % Basophils (%) (Auto) 0.2 % Neutrophils # (Auto) 11.9 TH/MM3 Lymphocytes # (Auto) 0.4 TH/MM3 Monocytes # (Auto) 0.8 TH/MM3 Eosinophils # (Auto) 0.1 TH/MM3 Basophils # (Auto) 0.0 TH/MM3 CBC Comment AUTO DIFF Differential Comment AUTO DIFF CONFIRMED Platelet Estimate LOW Platelet Morphology Comment NORMAL Red Cell Morphology Comment NORMAL Anion Gap 12 MEQ/L Estimat Glomerular Filtration Rate 8 ML/MIN Objective Remarks GENERAL: NO acute distress. SKIN: Warm and dry. HEAD: Atraumatic. Normocephalic. EYES: Pupils equal and round. No scleral icterus. No injection or drainage. ENT: No nasal bleeding or discharge. Mucous membranes pink and moist. Tongue is midline. No uvula deviation. NECK: Trachea midline. No JVD. CARDIOVASCULAR: Regular rate and rhythm. No S3, S4, or murmurs. RESPIRATORY: No accessory muscle use. Mild rales in the lower lung garcia. GASTROINTESTINAL: Abdomen soft, non-tender, nondistended. Hepatic and splenic margins not palpable. MUSCULOSKELETAL: Extremities without clubbing, cyanosis, or edema. No obvious deformities. 2+ pulses bilaterally. NEUROLOGICAL: Awake and alert. No obvious cranial nerve deficits. PSYCHIATRIC: Appropriate mood and affect; insight and judgment normal. Medications and IVs Current Medications Medications (Trade) Dose Ordered Sig/[place] Route Start Time Stop Time Status Last Admin (NS Flush) 2 ml UNSCH PRN IV FLUSH 09/23/16 23:00 09/24/16 22:41 (NS Flush) 2 ml BID IV FLUSH 09/24/16 09:00 09/28/16 21:52 (Narcan Inj) 0.4 mg UNSCH PRN IV 09/23/16 23:00 Ceftriaxone Sodium 1000 mg/ Sodium Chloride 100 ml @ 200 mls/hr Q24H IV 09/24/16 23:00 09/28/16 21:52 Azithromycin 250 mg/Sodium Chloride 250 ml @ 250 mls/hr Q24H IV 09/24/16 23:00 09/28/16 22:58 (Mucinex Er) 600 mg BID PO 09/24/16 09:00 09/28/16 07:30 (Rocaltrol) 0.25 mcg DAILY PO 09/24/16 11:30 09/28/16 07:30 (Plavix) 75 mg DAILY PO 09/24/16 11:30 09/28/16 07:30 (Pravachol) 40 mg DAILY PO 09/24/16 09:00 09/28/16 07:30 (Flomax) 0.4 mg HS PO 09/24/16 21:00 09/27/16 22:16 (Isoptin) 120 mg BID PO 09/24/16 11:30 09/29/16 05:56 (Xalatan 0.005% Opt Soln) 1 drop HS EACH EYE 09/24/16 21:00 09/28/16 21:00 (NS Flush) UNSCH PRN IVF 09/25/16 09:15 (Heparin Inj) UNSCH PRN IV FLUSH 09/25/16 09:15 (Epogen Inj) 10,000 units UNSCH PRN IV 09/25/16 13:45 09/26/16 11:13 Sodium Chloride 1,000 ml @ 0 mls/hr TITRATE PRN IV 09/25/16 14:00 09/26/16 11:13 (Heparin Inj) 8,000 units UNSCH PRN IV FLUSH 09/25/16 14:00 Sodium Chloride 1,000 ml @ 200 mls/hr Q5H PRN IV 09/25/16 14:00 Sodium Chloride 200 ml @ 0 mls/hr UNSCH PRN IV 09/25/16 14:00 (Mannitol Inj) 12.5 gm UNSCH PRN IV 09/25/16 14:00 (Albumin 25% Inj) 25 gm UNSCH PRN IV 09/25/16 14:00 (NS Flush) 5 ml UNSCH PRN IV FLUSH 09/25/16 14:00 (Heparin Inj) Dwell Heparin to f... UNSCH PRN OTHER 09/25/16 14:00 09/26/16 11:13 (Gentamicin (Dialysis) Inj) 10 mg UNSCH PRN OTHER 09/25/16 14:00 09/26/16 11:13 (Gelfoam 12 Mm/7 Mm Top) 1 foam UNSCH PRN TOPICAL 09/25/16 14:00 (Zofran Inj) 4 mg UNSCH PRN IV 09/25/16 14:00 09/29/16 04:09 (Benadryl) 25 mg UNSCH PRN PO 09/25/16 14:00 (Nitrostat Sl) 0.4 mg UNSCH PRN SL 09/25/16 14:00 (Catapres) 0.1 mg UNSCH PRN PO 09/25/16 14:00 (Megace Liq) 800 mg DAILY PO 09/26/16 17:00 09/28/16 07:31 A/P Assessment and Plan 1. 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 for appetite stimulant started on Megace. 2. Pneumonia on Ceftriaxone and Azithromycin, blood culture negative in five days awaiting for CXR has Leukocytosis no clear etiology, the patient clinically is stable. continue present care and follow. 3. Hypertension controlled continue home medicines 4. Hyperlipidemia continue Statins 5. COPD stable continue Bronchodilator, Mucolytic and incentive spirometry. 6. Anemia to start Epogen as per Nephrology specialist. DVT prophylaxis with Heparin. Discussed Condition With Patient and his Daughter Mrs. Jolynn Mcgovern, all questions answered to the best of my abilities. Discharge Planning once cleared by Nephrology specialist Jer German MD Sep 29, 2016 8:25 am
[2016-09-29 08:31] LABS: BICARBONATE 24.2 MEQ/L (21.0-32.0); POTASSIUM 3.5 MEQ/L (3.5-5.1)
[2016-09-29] MEDS: SODIUM CHLOR 0.9% 1000 ML IV PRN (09:18)
[2016-09-29] MEDS: GENTAMICIN SULFATE (DIALYSIS USE ONLY) 20 MG/2 ML VIAL OTHER PRN (09:20)
[2016-09-29] MEDS: HEPARIN SODIUM - IV 10,000 UNITS/10 ML VIAL OTHER PRN (09:20)
[2016-09-29] MEDS: EPOETIN ALFA 10,000 UNITS/ML VIAL IV PRN (09:21)
[2016-09-29 09:26] LABS: HEMO FLAGS AUTO DIFF
[2016-09-29 09:29] LABS: PLATELET ESTIMATE SMEAR LOW (NORMAL); PLATELET MORPHOLOGY NORMAL (NORMAL); SCAN/DIFF AUTO DIFF CONFIRMED
--- NOTE | 2016-09-29 10:07 | HHI.NPPN ---
Subjective General Problems: Anemia Renal Failure: Chronic, End Stage Renal Disease Interval History Seen during dialysis. He is still feeling week. (Jania Gallagher) Review of Systems General Constitutional: Fatigue (Jania Gallagher) Objective Data Data 09/29/16 09/30/16 19:00 07:00 Intake Total 120 ml Balance 120 ml Intake Oral 120 ml Vital Signs Date Time Temp Pulse Resp B/P (MAP) Pulse Ox O2 Delivery O2 Flow Rate FiO2 09/29/16 08:00 97.8 76 20 170/70 (103) 96 09/29/16 06:03 203/90 (127) 09/29/16 00:00 98.7 70 16 157/70 (99) 93 09/28/16 21:00 190/80 (116) 09/28/16 20:03 65 09/28/16 20:00 96.3 66 18 95 09/28/16 16:00 96.7 66 16 147/68 (94) 96 09/28/16 12:00 97.3 62 18 150/69 (96) 94 (Jania Gallagher) -: 09/29/16 0641 09/29/16 0641 Imaging Last Impressions Catheter Placement X-Ray 09/25/16 0000 Signed Impressions: Service Date/Time: September 08:45 - CONCLUSION: Uncomplicated line placement as above. This can be converted to a PermCath. Abhishek Fatima Jr., MD Chest X-Ray 09/23/16 2130 Signed Impressions: Service Date/Time: Friday, September 23, 2016 21:48 - CONCLUSION: Mild infiltrate and small pleural effusion at the left lung base. Joe Hdz MD Tubes & Lines: Vas-Cath (Jania Gallagher) Physical Exam General Appearance: Well Developed, Well Nourished, No Acute Distress, Comfortable (Jania Galalgher) Throat Throat Exam: Oral Mucosa [place] & Moist (Jania Gallagher) Pulmonary Resp Exam: Clear Bilaterally, Breath Sounds Equal (Jania Gallagher) Cardiology CV Exam: Regular, Normal Sinus Rhythm (Jania Gallagher) Gastrointestinal/Abdomen GI Exam: Soft, Non-Tender, Bowel Sounds Present (Jania Gallagher) Musculoskeletal MS Exam: Joints Intact, Normal Gait, Normal Tone (Jania Gallagher) Integumentary Skin Exam: Clear, Warm, Dry, Intact (Jania Gallagher) Extremeties Extremities Exam: No Edema, Pedal Pulses Palpable (Jania Gallagher) Neurologic Neuro Exam: Alert, Awake, Oriented, Speech Clear, Moving All Extremities (Jania Gallagher) Psychiatric Psych Exam: Appropriate Responses (Jania Gallagher) Assessment/Plan Discussed Condition With: Patient Assessment Summary: Anemia of CKD, End Stage Renal Disease Problem List: (1) Chronic kidney disease ICD Codes: N18.9 - Chronic kidney disease Status: Acute Plan: Presented with advanced renal disease, needing renal replacement therapy vascath placed and first HD was on 09/25 Seen during HD today on a 4K, 300 BFR, goal 1L On MWF HD while awaiting PD catheter placement plan is for PD catheter placement, likely this week; he can then be discharged with plans for rapid start PD; to go to PD clinic immediately after discharge Volume status stable, check AM labs. avoid IVF, encouraged PO intake ; on Megace for appetite stimulation (2) Pneumonia ICD Codes: J18.9 - Pneumonia Status: Acute Plan: he is on Zithromax and Rocephin for LLL pneumonia he does have mild leukocytosis monitor clinically (3) Hypertension ICD Codes: I10 - Hypertension Status: Chronic Plan: BP stable, he is on verapamil (4) Hyperlipidemia ICD Codes: E78.5 - Hyperlipidemia Status: Chronic Plan: continue statin (5) Anemia ICD Codes: D64.9 - Anemia, unspecified Status: Acute Plan: He has anemia of chronic disease on Epogen with HD (Jania Gallagher) Plan patient was seen and examined. Seen during dialysis. PD catheter placement and discharge later this week. Continue to appear depressed. (Gabriel Salcedo MD) Problem Qualifiers (1) Pneumonia: Jania Gallagher Sep 29, 2016 10:07 Gabriel Salcedo MD Sep 30, 2016 10:58
[2016-09-29] MEDS: cloNIDine HCL 0.1 MG TAB PO PRN ×2 (13:03→21:14)
--- NOTE | 2016-09-29 16:12 | RADRPT ---
EXAM DATE/TIME: 09/29/2016 15:44 [facility] COMPARISON: CHEST PA & LAT, March 24, 2013, 17:23. INDICATIONS : Shortness of breath. MEDICAL HISTORY : Hypertension. SURGICAL HISTORY : Tonsillectomy. ENCOUNTER: Initial ACUITY: 1 day PAIN SCORE: 0/10 LOCATION: Bilateral chest FINDINGS: PA and lateral views of the chest demonstrate cardiomegaly left basilar density. Right lung is clear. Right-sided vascular catheter with tip in the cavoatrial junction.. The cardiomediastinal contours are unremarkable. Osseous structures are intact. CONCLUSION: 1. Cardiomegaly left basilar density. Marcus Shultz MD on September 29, 2016 at 16:10 Board Certified Radiologist. This report was verified electronically.
[2016-09-29] MEDS: TAMSULOSIN HCL 0.4 MG CAP PO SCH (21:14)
[2016-09-29] MEDS: LATANOPROST 0.005% OPHT SOLN 2.5 ML BTL EACH EYE SCH (21:15)
[2016-09-29] MEDS: AZITHROMYCIN INJ 250 MG in SODIUM CHLOR 0.9% 250 ML INJ 250 ML IV SCH (23:11)
[2016-09-29] MEDS: cefTRIAXone INJ 1,000 MG in SODIUM CHLORIDE 0.9% INJ 100 ML IV SCH (23:11)
[2016-09-30] MEDS ORDERED: CHLORHEXIDINE GLUCONATE 2 % 1 PACK (2 CLOTHS) TOPICAL PRN (04:45)
[2016-09-30] MEDS ORDERED: LACTATED RINGER'S 1000 ML IV PRN (04:45)
[2016-09-30] MEDS ORDERED: SODIUM CHLORID 0.9% 500 ML IV PRN (04:45)
[2016-09-30] MEDS ORDERED: POVIDONE IODINE 5% (ANTISEPSIS KIT) 4 APPLICATIONS EACH NARE PRN (04:45)
[2016-09-30] MEDS ORDERED: METOPROLOL TARTRATE 25 MG TAB PO PRN (04:45)
[2016-09-30 08:00] VITALS: BP 163/76; PULSE 64; RESP 17; TEMP 98.7; O2SAT 94
[2016-09-30] MEDS: guaiFENesin E.R. 600 MG TAB PO SCH ×2 (08:13→22:45)
[2016-09-30] MEDS: PRAVASTATIN SOD 40 MG TAB PO SCH (08:13)
[2016-09-30] MEDS: CALCITRIOL 0.25 MCG CAP PO SCH (08:13)
[2016-09-30] MEDS: VERAPAMIL HCL 120 MG TAB PO SCH ×2 (08:13→22:45)
[2016-09-30] MEDS: CLOPIDOGREL 75 MG TAB PO SCH (08:13)
[2016-09-30] MEDS: SODIUM CHLORIDE 0.9% FLUSH 10 ML FLUSH IV FLUSH SCH ×2 (08:14→22:46)
[2016-09-30] MEDS: MEGESTROL ACETATE SUSP 400 MG/10 ML CUP PO SCH (08:15)
--- NOTE | 2016-09-30 10:34 | HHI.PR ---
Subjective Remarks resting comfortably with no distress. denies pain.BP trend noted. d/w the RN and no acute issues over night. Objective Vitals Vital Signs Date Time Temp Pulse Resp B/P (MAP) Pulse Ox O2 Delivery O2 Flow Rate FiO2 09/30/16 08:00 98.7 64 17 163/76 (105) 94 09/29/16 23:15 73 18 127/62 (83) 96 09/29/16 21:04 97.6 63 18 96 200/90 (126) 09/29/16 20:00 98.6 69 19 180/89 (119) 96 09/29/16 16:00 97.5 67 19 168/82 (110) 97 09/29/16 13:00 96.9 73 17 168/68 (101) 96 I/O 09/29/16 09/29/16 09/29/16 09/30/16 09/30/16 09/30/16 07:00 15:00 23:00 07:00 15:00 23:00 Intake Total 120 ml 860 ml 710 ml Output Total 1500 ml 800 ml 600 ml Balance -1380 ml 60 ml 110 ml Intake Oral 120 ml 860 ml 360 ml IV Total 350 ml Output Urine Total 800 ml 600 ml Hemodialysis 1500 ml # Voids 1 0 # Bowel Movements 1 0 Result Diagram: 09/29/16 0641 09/29/16 0641 Imaging Last Impressions Catheter Placement X-Ray 09/25/16 0000 Signed Impressions: Service Date/Time: September 08:45 - CONCLUSION: Uncomplicated line placement as above. This can be converted to a PermCath. Abhishek Fatima Jr., MD Chest X-Ray [id number]/[id number] Signed Impressions: Service Date/Time: Friday, September 23, 2016 21:48 - CONCLUSION: Mild infiltrate and small pleural effusion at the left lung base. Joe Hdz MD Objective Remarks GENERAL: This is a well-nourished, well-developed patient, in no apparent distress. CARDIOVASCULAR: Regular rate and regular rhythm without murmurs, gallops, or rubs. RESPIRATORY: Clear to auscultation. Breath sounds equal bilaterally. No wheezes , rales, or rhonchi. GASTROINTESTINAL: Abdomen soft, non-tender, nondistended. Normal, active bowel sounds MUSCULOSKELETAL: Extremities without clubbing, cyanosis, or edema. NEURO: Alert & Oriented x4 to person, place, time, situation. Moves all ext x4 Procedures vas-cath placement Medications and IVs Current Medications Acetaminophen (Tylenol) 650 mg ONCE ONCE PO Last administered on 09/23/16 21: 49; Start 09/23/16 at 21:30; Stop 09/23/16 at 21:33; Status DC Azithromycin 500 mg/Sodium Chloride 250 ml @ 250 mls/hr ONCE ONCE IV Last administered on 09/23/16 23:24; Start 09/23/16 at 22:45; Stop 09/23/16 at 23:44 ; Status DC Sodium Chloride (NS Flush) 2 ml UNSCH PRN IV FLUSH FLUSH AFTER USING IV ACCESS Last administered on 09/24/16 22:41; Start 09/23/16 at 23:00 Sodium Chloride (NS Flush) 2 ml BID IV FLUSH Last administered on 09/30/16 08: 14; Start 09/24/16 at 09:00 Naloxone HCl (Narcan Inj) 0.4 mg UNSCH PRN IV SEE LABEL COMMENTS; Start at 23:00 Ceftriaxone Sodium 1000 mg/ Sodium Chloride 100 ml @ 200 mls/hr Q24H IV Last administered on 09/29/16 23:11; Start 09/24/16 at 23:00 Azithromycin 250 mg/Sodium Chloride 250 ml @ 250 mls/hr Q24H IV Last administered on 09/29/16 23:11; Start 09/24/16 at 23:00 Ceftriaxone Sodium 1000 mg/ Sodium Chloride 100 ml @ 200 mls/hr ONCE ONCE IV Last administered on 09/24/16 00:25; Start 09/23/16 at 23:00; Stop 09/23/16 at 23:29; Status DC Albuterol/ Ipratropium (Duoneb Neb) 1 ampule Q4HR NEB NEB Last administered on 09/28/16 13:00; Start 09/24/16 at 12:00; Stop 09/28/16 at 12:00; Status DC Guaifenesin (Mucinex Er) 600 mg BID PO Last administered on 09/30/16 08:13; Start 09/24/16 at 09:00 Calcitriol (Rocaltrol) 0.25 mcg DAILY PO Last administered on 09/30/16 08:13; Start 09/24/16 at 11:30 Clopidogrel Bisulfate (Plavix) 75 mg DAILY PO Last administered on 09/30/16 08 :13; Start 09/24/16 at 11:30 Pravastatin Sodium (Pravachol) 40 mg DAILY PO Last administered on 09/30/16 08 :13; Start 09/24/16 at 09:00 Tamsulosin HCl (Flomax) 0.4 mg HS PO Last administered on 09/29/16 21:14; Start 09/24/16 at 21:00 Verapamil HCl (Isoptin) 120 mg BID PO Last administered on 09/30/16 08:13; Start 09/24/16 at 11:30 Latanoprost (Xalatan 0.005% Opt Soln) 1 drop HS EACH EYE Last administered on 09/29/16 21:15; Start 09/24/16 at 21:00 Sodium Bicarbonate (Sodium Bicarbonate) 650 mg Q12HR PO Last administered on 20:28; Start 09/24/16 at 11:30; Stop 09/25/16 at 13:52; Status DC Epoetin Fer (Epogen Inj) 20,000 units ONCE ONCE SQ ; Start 09/24/16 at 11:45; Stop 09/24/16 at 12:56; Status DC Verapamil HCl (Isoptin Sr) 120 mg Q12HR PO ; Start 09/24/16 at 21:00; Stop at 21:00; Status DC Heparin Sodium (Porcine) (*HEPARIN INJ Periprocedural ONLY) 10,000 units STK- MED ONCE .ROUTE Last administered on 09/25/16 08:36; Start 09/25/16 at 08:36; Stop 09/25/16 at 08:37; Status DC Sodium Chloride (NS Flush) UNSCH PRN IVF SEE PROTOCOL; Start 09/25/16 at 09:15 Heparin Sodium (Porcine) (Heparin Inj) UNSCH PRN IV FLUSH SEE PROTOCOL; Start 09/25/16 at 09:15 Epoetin Fer (Epogen Inj) 10,000 units UNSCH PRN IV WITH DIALYSIS Last administered on 09/29/16 09:21; Start 09/25/16 at 13:45 Sodium Chloride 1,000 ml @ 0 mls/hr TITRATE PRN IV WITH DIALYSIS Last administered on 09/29/16 09:18; Start 09/25/16 at 14:00 Heparin Sodium (Porcine) (Heparin Inj) 8,000 units UNSCH PRN IV FLUSH WITH DIALYSIS; Start 09/25/16 at 14:00 Sodium Chloride 1,000 ml @ 200 mls/hr Q5H PRN IV WITH DIALYSIS; Start 09/25/16 at 14:00 Sodium Chloride 200 ml @ 0 mls/hr UNSCH PRN IV WITH DIALYSIS; Start 09/25/16 at 14:00 Mannitol (Mannitol Inj) 12.5 gm UNSCH PRN IV WITH DIALYSIS; Start 09/25/16 at 14:00 Albumin Human (Albumin 25% Inj) 25 gm UNSCH PRN IV WITH DIALYSIS; Start at 14:00 Sodium Chloride (NS Flush) 5 ml UNSCH PRN IV FLUSH WITH DIALYSIS; Start at 14:00 Heparin Sodium (Porcine) (Heparin Inj) Dwell Heparin to f... UNSCH PRN OTHER WITH DIALYSIS Last administered on 09/29/16 09:20; Start 09/25/16 at 14:00 Gentamicin Sulfate (Gentamicin (Dialysis) Inj) 10 mg UNSCH PRN OTHER WITH DIALYSIS Last administered on 09/29/16 09:20; Start 09/25/16 at 14:00 Gelatin (Gelfoam 12 Mm/7 Mm Top) 1 foam UNSCH PRN TOPICAL WITH DIALYSIS; Start 09/25/16 at 14:00 Ondansetron HCl (Zofran Inj) 4 mg UNSCH PRN IV NAUSEA OR VOMITING Last administered on 09/29/16 04:09; Start 09/25/16 at 14:00 Acetaminophen (Tylenol) 650 mg UNSCH X1 PRN PO WITH DIALYSIS; Start 09/25/16 at 14:00; Stop 09/27/16 at 23:59; Status DC Diphenhydramine HCl (Benadryl) 25 mg UNSCH PRN PO WITH DIALYSIS; Start at 14:00 Nitroglycerin (Nitrostat Sl) 0.4 mg UNSCH PRN SL WITH DIALYSIS; Start 09/25/16 at 14:00 Clonidine (Catapres) 0.1 mg UNSCH PRN PO WITH DIALYSIS; Start 09/25/16 at 14:00 ; Stop 09/29/16 at 08:27; Status DC Megestrol Acetate (Megace Liq) 800 mg DAILY PO Last administered on 09/29/16 08:19; Start 09/26/16 at 17:00 Clonidine (Catapres) 0.1 mg Q6HR PRN PO SBP>160, DBP>90 Last administered on 21:14; Start 09/29/16 at 08:30; Stop 10/24/16 at 09:15 Lactated Ringer's 1,000 ml @ 30 mls/hr Q24H PRN IV SEE LABEL COMMENTS; Start at 04:45; Stop 10/03/16 at 04:44 Sodium Chloride 500 ml @ 30 mls/hr [id number] PRN IV SEE LABEL COMMENTS; Start at 04:45; Stop 10/03/16 at 04:44 Metoprolol Tartrate (Lopressor) 25 mg WEATHER CLERK PRN PO SEE LABEL COMMENTS; Start 09/30/16 at 04:45; Stop 10/03/16 at 04:44 Povidone Iodine (Betadine 5% Antisepsis Kit) 1 applic WEATHER CLERK PRN EACH NARE SEE LABEL COMMENTS; Start 09/30/16 at 04:45; Stop 10/03/16 at 04:44 Chlorhexidine Gluconate (Chlorhexidine 2% Cloth) 3 pack WEATHER CLERK PRN TOPICAL SEE LABEL COMMENTS; Start 09/30/16 at 04:45; Stop 10/03/16 at 04:44 A/P Assessment and Plan 1. 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 plan for PD access placement today. nephrology following. 2. Pneumonia on Ceftriaxone and Azithromycin, blood culture negative in five days. has Leukocytosis no clear etiology, the patient clinically is stable. continue present care and follow. 3. Hypertension - continue Verapamil- consider adding hydralazine if BP remains elevated. 4. Hyperlipidemia continue Statins 5. COPD stable continue Bronchodilator, Mucolytic and incentive spirometry. 6. Anemia to start Epogen as per Nephrology specialist. DVT prophylaxis with Heparin. Kaelyn Briseno MD Sep 30, 2016 10:34
--- NOTE | 2016-09-30 11:02 | HHI.FF ---
Face to Face Verification Diagnosis: (1) Chronic kidney disease Physical Therapy Order: Evaluate and Treat Home Health Nursing Order: Medical education Signs/symptoms of disease process Medication education-adverse effect Nursing assessment with vital signs I have seen patient Irineo Mcgovern on 09/30/16. My clinical findings support the need for the requested home health care services because: Ltd mobility - disease progression I certify that my clinical findings support that this patient is homebound because: Unsteady gait/balance Kaelyn Briseno MD Sep 30, 2016 11:02
[2016-09-30] MEDS ORDERED: BUPIVACAINE/EPINEPHRINE 0.25% 50 ML VIAL ONE (11:15)
[2016-09-30] MEDS ORDERED: BUPIVACAINE/EPINEPHRINE 0.5% 50 ML VIAL ONE (11:15)
[2016-09-30] MEDS ORDERED: FAMOTIDINE 20 MG/2 ML VIAL ONE (11:29)
[2016-09-30] MEDS ORDERED: DEXAMETHASONE SOD PHOS 4 MG/ML VIAL ONE (11:29)
[2016-09-30] MEDS ORDERED: SUGAMMADEX SODIUM 200 MG/2 ML VIAL IV PUSH ONE ×2 (11:29)
[2016-09-30] MEDS ORDERED: MIDAZOLAM HCL 2 MG/2 ML VIAL ONE (11:29)
--- NOTE | 2016-09-30 12:37 | HHI.NPPN ---
Subjective General Problems: Anemia Renal Failure: Chronic, End Stage Renal Disease Interval History In route for PD catheter placement. No new concerns. (Jania Gallagher) Review of Systems General Constitutional: Fatigue (Jania Gallagher) Objective Data Data Vital Signs Date Time Temp Pulse Resp B/P (MAP) Pulse Ox O2 Delivery O2 Flow Rate FiO2 09/30/16 08:00 98.7 64 17 163/76 (105) 94 09/29/16 23:15 73 18 127/62 (83) 96 09/29/16 21:04 97.6 63 18 96 200/90 (126) 09/29/16 20:00 98.6 69 19 180/89 (119) 96 09/29/16 16:00 97.5 67 19 168/82 (110) 97 09/29/16 13:00 96.9 73 17 168/68 (101) 96 (Jania Gallagher) -: 09/29/16 0641 09/29/16 0641 Imaging Last Impressions Catheter Placement X-Ray 09/25/16 0000 Signed Impressions: Service Date/Time: September 08:45 - CONCLUSION: Uncomplicated line placement as above. This can be converted to a PermCath. Abhishek Fatima Jr., MD Chest X-Ray 09/23/16 2130 Signed Impressions: Service Date/Time: Friday, September 23, 2016 21:48 - CONCLUSION: Mild infiltrate and small pleural effusion at the left lung base. Joe Hdz MD Tubes & Lines: Vas-Cath (Jania Gallagher) Physical Exam General Appearance: Well Developed, Well Nourished, No Acute Distress, Comfortable (Jania Gallagher) Throat Throat Exam: Oral Mucosa [place] & Moist (Jania Gallagher) Pulmonary Resp Exam: Clear Bilaterally, Breath Sounds Equal, No Distress (Jania Gallagher) Cardiology CV Exam: Regular, Normal Sinus Rhythm (Jania Gallagher) Gastrointestinal/Abdomen GI Exam: Soft, Non-Tender, Bowel Sounds Present (Jania Gallagher) Musculoskeletal MS Exam: Joints Intact, Normal Gait, Normal Tone (Jania Gallagher) Integumentary Skin Exam: Clear, Warm, Dry, Intact (Jania Gallagher) Extremeties Extremities Exam: No Edema, Pedal Pulses Palpable (Jania Gallagher) Neurologic Neuro Exam: Alert, Awake, Oriented, Speech Clear, Moving All Extremities (Jania Gallagher) Psychiatric Psych Exam: Appropriate Responses (Jania Gallagher) Assessment/Plan Discussed Condition With: Patient Assessment Summary: Anemia of CKD, End Stage Renal Disease Problem List: (1) Chronic kidney disease ICD Codes: N18.9 - Chronic kidney disease Status: Acute Plan: Presented with advanced renal disease, needing renal replacement therapy vascath placed and first HD was on 09/25 1L UF yesterday PD catheter to be placed today, to begin rapid start PD (training) beginning @ 8am at [facility] in [facility], patient and are aware if he can be discharged tomorrow that would be best, he is stable from renal perspective will remove vascath after HD tomorrow avoid IVF, encouraged PO intake ; on Megace for appetite stimulation (2) Pneumonia ICD Codes: J18.9 - Pneumonia Status: Acute Plan: he is on Zithromax and Rocephin for LLL pneumonia clinically improved convert to PO antibiotics if needed (3) Hypertension ICD Codes: I10 - Hypertension Status: Chronic Plan: BP stable, he is on verapamil (4) Hyperlipidemia ICD Codes: E78.5 - Hyperlipidemia Status: Chronic Plan: continue statin (5) Anemia ICD Codes: D64.9 - Anemia, unspecified Status: Acute Plan: He has anemia of chronic disease on Epogen with HD (Jania Gallagher) Plan patient was seen and examined. Discussed with patient's . Possible discharge tomorrow after dialysis. Urgent start PD to start from . Discussed with Dr. Kothari. (Gabriel Salcedo MD) Problem Qualifiers (1) Pneumonia: Jania Gallagher Sep 30, 2016 12:36 Gabriel Salcedo MD Sep 30, 2016 16:29
[2016-09-30] MEDS ORDERED: PHENYLEPH/NS 1000 MCG/10 ML SYR IV ONE (12:39)
[2016-09-30] MEDS ORDERED: ePHEDrine/NS 25 MG/5 ML SYR IV ONE (12:39)
[2016-09-30] MEDS ORDERED: PROPOFOL 200 MG/20 ML AMP IV ONE (12:39)
[2016-09-30] MEDS ORDERED: ONDANSETRON HCL 4 MG/2 ML VIAL IV PUSH ONE (12:39)
[2016-09-30] MEDS ORDERED: DO NOT ADM ANY ANTICOAGULANT DRUGS PRN (13:00)
[2016-09-30] MEDS ORDERED: fentaNYL CITRATE 250 MCG/5 ML AMP ONE (13:15)
[2016-09-30 16:00] VITALS: BP 142/63; PULSE 61; RESP 16; TEMP 96.7; O2SAT 98
[2016-09-30 16:20] VITALS: O2SAT 98
[2016-09-30 20:00] VITALS: BP 170/78; PULSE 63; RESP 20; TEMP 97.5; O2SAT 94
[2016-09-30 20:46] LABS: AUTOMATED NEUTROPHIL # 12.9 TH/MM3 (1.8-7.7); BASOPHIL % 0.2 % (0.0-2.0); HEMATOCRIT 31.8 % (39.0-51.0); LYMPH % 2.1 % (9.0-44.0); LYMPHOCYTE # 0.3 TH/MM3 (1.0-4.8); MEAN CELL VOLUME 94.8 FL (80.0-100.0); MEAN CORPUSCULAR HEMOGLOBIN 30.9 PG (27.0-34.0); MEAN CORPUSCULAR HGB CONC 32.6 % (32.0-36.0); MONO % 4.4 % (0.0-8.0); NEUT % 93.3 % (16.0-70.0); PLATELET COUNT 68 TH/MM3 (150-450); RED BLOOD COUNT 3.36 MIL/MM3 (4.50-5.90); RED CELL DISTRIBUTION WIDTH 13.1 % (11.6-17.2); WHITE BLOOD COUNT 13.8 TH/MM3 (4.0-11.0)
[2016-09-30 20:52] LABS: HEMO FLAGS AUTO DIFF
[2016-09-30] MEDS: LATANOPROST 0.005% OPHT SOLN 2.5 ML BTL EACH EYE SCH (21:00)
[2016-09-30 21:13] LABS: PLATELET ESTIMATE SMEAR LOW (NORMAL); PLATELET MORPHOLOGY NORMAL (NORMAL); SCAN/DIFF AUTO DIFF CONFIRMED
[2016-09-30 22:00] VITALS: PULSE 60
[2016-09-30] MEDS: TAMSULOSIN HCL 0.4 MG CAP PO SCH (22:45)
[2016-09-30] MEDS: cefTRIAXone INJ 1,000 MG in SODIUM CHLORIDE 0.9% INJ 100 ML IV SCH (22:45)
[2016-09-30] MEDS: AZITHROMYCIN INJ 250 MG in SODIUM CHLOR 0.9% 250 ML INJ 250 ML IV SCH (23:43)
[2016-10-01 08:00] VITALS: BP 185/78; PULSE 70; RESP 18; TEMP 97.9; O2SAT 95
[2016-10-01] MEDS: CLOPIDOGREL 75 MG TAB PO SCH (08:22)
[2016-10-01] MEDS: VERAPAMIL HCL 120 MG TAB PO SCH (08:22)
[2016-10-01] MEDS: PRAVASTATIN SOD 40 MG TAB PO SCH (08:22)
[2016-10-01] MEDS: SODIUM CHLORIDE 0.9% FLUSH 10 ML FLUSH IV FLUSH SCH (08:22)
[2016-10-01] MEDS: MEGESTROL ACETATE SUSP 400 MG/10 ML CUP PO SCH (08:22)
[2016-10-01] MEDS: guaiFENesin E.R. 600 MG TAB PO SCH (08:22)
[2016-10-01] MEDS: CALCITRIOL 0.25 MCG CAP PO SCH (08:22)
--- NOTE | 2016-10-01 08:51 | HHI.PR ---
Subjective Remarks resting comfortably with no distress. denies pain, nausea or vomiting. no new complaints. d/w the RN and no acute issues over night. Objective Vitals Vital Signs Date Time Temp Pulse Resp B/P (MAP) Pulse Ox O2 Delivery O2 Flow Rate FiO2 10/01/16 08:00 97.9 70 18 185/78 (113) 95 09/30/16 22:00 60 09/30/16 20:00 97.5 63 20 170/78 (108) 94 09/30/16 16:20 98 Nasal Cannula 2.00 09/30/16 16:00 96.7 61 16 142/63 (89) 98 09/30/16 14:00 98.2 53 21 104/56 (72) 99 Nasal Cannula 2 09/30/16 13:45 67 21 121/60 (80) 99 Nasal Cannula 2 09/30/16 13:30 58 21 106/59 (75) 98 Nasal Cannula 2 09/30/16 13:15 66 19 85/52 (63) 98 Nasal Cannula 2 09/30/16 13:08 96.4 60 19 106/51 (69) 100 Nasal Cannula 2 I/O 09/30/16 09/30/16 09/30/16 10/01/16 10/01/16 10/01/16 07:00 15:00 23:00 07:00 15:00 23:00 Intake Total 710 ml 600 ml 960 ml 340 ml Output Total 600 ml 10 ml 150 ml Balance 110 ml 590 ml 810 ml 340 ml Intake Oral 360 ml 0 ml 960 ml IV Total 350 ml 0 ml 0 ml 340 ml Other 600 ml Output Urine Total 600 ml 150 ml Estimated Blood Loss 10 ml # Voids 0 1 # Bowel Movements 0 1 1 Result Diagram: 09/30/16200409/29/16 0641 Imaging Last Impressions Chest X-Ray 09/29/16 0700 Signed Impressions: Service Date/Time: Thursday, September 29, 2016 15:44 - CONCLUSION: 1. Cardiomegaly left basilar density. Marcus Shultz MD Catheter Placement X-Ray 09/25/16 0000 Signed Impressions: Service Date/Time: September 08:45 - CONCLUSION: Uncomplicated line placement as above. This can be converted to a PermCath. Abhishek Fatima Jr., MD Objective Remarks GENERAL: This is a well-nourished, well-developed patient, in no apparent distress. CARDIOVASCULAR: Regular rate and regular rhythm without murmurs, gallops, or rubs. RESPIRATORY: Clear to auscultation. Breath sounds equal bilaterally. No wheezes , rales, or rhonchi. GASTROINTESTINAL: Abdomen soft, non-tender, nondistended. Normal, active bowel sounds MUSCULOSKELETAL: Extremities without clubbing, cyanosis, or edema. NEURO: Alert & Oriented x4 to person, place, time, situation. Moves all ext x4 Procedures vas-cath placement peritoneal dialysis catheter placement Medications and IVs Current Medications Acetaminophen (Tylenol) 650 mg ONCE ONCE PO Last administered on 09/23/16 21: 49; Start 09/23/16 at 21:30; Stop 09/23/16 at 21:33; Status DC Azithromycin 500 mg/Sodium Chloride 250 ml @ 250 mls/hr ONCE ONCE IV Last administered on 09/23/16 23:24; Start 09/23/16 at 22:45; Stop 09/23/16 at 23:44 ; Status DC Sodium Chloride (NS Flush) 2 ml UNSCH PRN IV FLUSH FLUSH AFTER USING IV ACCESS Last administered on 09/24/16 22:41; Start 09/23/16 at 23:00 Sodium Chloride (NS Flush) 2 ml BID IV FLUSH Last administered on 10/01/16 08: 22; Start 09/24/16 at 09:00 Naloxone HCl (Narcan Inj) 0.4 mg UNSCH PRN IV SEE LABEL COMMENTS; Start at 23:00 Ceftriaxone Sodium 1000 mg/ Sodium Chloride 100 ml @ 200 mls/hr Q24H IV Last administered on 09/30/16 22:45; Start 09/24/16 at 23:00 Azithromycin 250 mg/Sodium Chloride 250 ml @ 250 mls/hr Q24H IV Last administered on 09/30/16 23:43; Start 09/24/16 at 23:00 Ceftriaxone Sodium 1000 mg/ Sodium Chloride 100 ml @ 200 mls/hr ONCE ONCE IV Last administered on 09/24/16 00:25; Start 09/23/16 at 23:00; Stop 09/23/16 at 23:29; Status DC Albuterol/ Ipratropium (Duoneb Neb) 1 ampule Q4HR NEB NEB Last administered on 09/28/16 13:00; Start 09/24/16 at 12:00; Stop 09/28/16 at 12:00; Status DC Guaifenesin (Mucinex Er) 600 mg BID PO Last administered on 10/01/16 08:22; Start 09/24/16 at 09:00 Calcitriol (Rocaltrol) 0.25 mcg DAILY PO Last administered on 10/01/16 08:22; Start 09/24/16 at 11:30 Clopidogrel Bisulfate (Plavix) 75 mg DAILY PO Last administered on 10/01/16 08 :22; Start 09/24/16 at 11:30 Pravastatin Sodium (Pravachol) 40 mg DAILY PO Last administered on 10/01/16 08 :22; Start 09/24/16 at 09:00 Tamsulosin HCl (Flomax) 0.4 mg HS PO Last administered on 09/30/16 22:45; Start 09/24/16 at 21:00 Verapamil HCl (Isoptin) 120 mg BID PO Last administered on 10/01/16 08:22; Start 09/24/16 at 11:30 Latanoprost (Xalatan 0.005% Opt Soln) 1 drop HS EACH EYE Last administered on 09/30/16 21:00; Start 09/24/16 at 21:00 Sodium Bicarbonate (Sodium Bicarbonate) 650 mg Q12HR PO Last administered on 20:28; Start 09/24/16 at 11:30; Stop 09/25/16 at 13:52; Status DC Epoetin Fer (Epogen Inj) 20,000 units ONCE ONCE SQ ; Start 09/24/16 at 11:45; Stop 09/24/16 at 12:56; Status DC Verapamil HCl (Isoptin Sr) 120 mg Q12HR PO ; Start 09/24/16 at 21:00; Stop at 21:00; Status DC Heparin Sodium (Porcine) (*HEPARIN INJ Periprocedural ONLY) 10,000 units STK- MED ONCE .ROUTE Last administered on 09/25/16 08:36; Start 09/25/16 at 08:36; Stop 09/25/16 at 08:37; Status DC Sodium Chloride (NS Flush) UNSCH PRN IVF SEE PROTOCOL; Start 09/25/16 at 09:15 Heparin Sodium (Porcine) (Heparin Inj) UNSCH PRN IV FLUSH SEE PROTOCOL; Start 09/25/16 at 09:15 Epoetin Fer (Epogen Inj) 10,000 units UNSCH PRN IV WITH DIALYSIS Last administered on 09/29/16 09:21; Start 09/25/16 at 13:45 Sodium Chloride 1,000 ml @ 0 mls/hr TITRATE PRN IV WITH DIALYSIS Last administered on 09/29/16 09:18; Start 09/25/16 at 14:00 Heparin Sodium (Porcine) (Heparin Inj) 8,000 units UNSCH PRN IV FLUSH WITH DIALYSIS; Start 09/25/16 at 14:00 Sodium Chloride 1,000 ml @ 200 mls/hr Q5H PRN IV WITH DIALYSIS; Start 09/25/16 at 14:00 Sodium Chloride 200 ml @ 0 mls/hr UNSCH PRN IV WITH DIALYSIS; Start 09/25/16 at 14:00 Mannitol (Mannitol Inj) 12.5 gm UNSCH PRN IV WITH DIALYSIS; Start 09/25/16 at 14:00 Albumin Human (Albumin 25% Inj) 25 gm UNSCH PRN IV WITH DIALYSIS; Start at 14:00 Sodium Chloride (NS Flush) 5 ml UNSCH PRN IV FLUSH WITH DIALYSIS; Start at 14:00 Heparin Sodium (Porcine) (Heparin Inj) Dwell Heparin to f... UNSCH PRN OTHER WITH DIALYSIS Last administered on 09/29/16 09:20; Start 09/25/16 at 14:00 Gentamicin Sulfate (Gentamicin (Dialysis) Inj) 10 mg UNSCH PRN OTHER WITH DIALYSIS Last administered on 09/29/16 09:20; Start 09/25/16 at 14:00 Gelatin (Gelfoam 12 Mm/7 Mm Top) 1 foam UNSCH PRN TOPICAL WITH DIALYSIS; Start 09/25/16 at 14:00 Ondansetron HCl (Zofran Inj) 4 mg UNSCH PRN IV NAUSEA OR VOMITING Last administered on 09/29/16 04:09; Start 09/25/16 at 14:00 Acetaminophen (Tylenol) 650 mg UNSCH X1 PRN PO WITH DIALYSIS; Start 09/25/16 at 14:00; Stop 09/27/16 at 23:59; Status DC Diphenhydramine HCl (Benadryl) 25 mg UNSCH PRN PO WITH DIALYSIS; Start at 14:00 Nitroglycerin (Nitrostat Sl) 0.4 mg UNSCH PRN SL WITH DIALYSIS; Start 09/25/16 at 14:00 Clonidine (Catapres) 0.1 mg UNSCH PRN PO WITH DIALYSIS; Start 09/25/16 at 14:00 ; Stop 09/29/16 at 08:27; Status DC Megestrol Acetate (Megace Liq) 800 mg DAILY PO Last administered on 10/01/16 08:22; Start 09/26/16 at 17:00 Clonidine (Catapres) 0.1 mg Q6HR PRN PO SBP>160, DBP>90 Last administered on 21:14; Start 09/29/16 at 08:30; Stop 10/24/16 at 09:15 Lactated Ringer's 1,000 ml @ 30 mls/hr Q24H PRN IV SEE LABEL COMMENTS Last administered on 09/30/16 10:30; Start 09/30/16 at 04:45; Stop 09/30/16 at 14:34 ; Status DC Sodium Chloride 500 ml @ 30 mls/hr [id number] PRN IV SEE LABEL COMMENTS; Start at 04:45; Stop 09/30/16 at 14:34; Status DC Metoprolol Tartrate (Lopressor) 25 mg RELAY ASSOCIATE PRN PO SEE LABEL COMMENTS; Start 09/30/16 at 04:45; Stop 09/30/16 at 14:34; Status DC Povidone Iodine (Betadine 5% Antisepsis Kit) 1 applic RELAY ASSOCIATE PRN EACH NARE SEE LABEL COMMENTS; Start 09/30/16 at 04:45; Stop 09/30/16 at 14:34; Status DC Chlorhexidine Gluconate (Chlorhexidine 2% Cloth) 3 pack RELAY ASSOCIATE PRN TOPICAL SEE LABEL COMMENTS; Start 09/30/16 at 04:45; Stop 09/30/16 at 14:34; Status DC Bupivacaine HCl/ Epinephrine Bitart (Sensorcaine-Epi 0.5% 50 ml Inj) 50 ml STK- MED ONCE .ROUTE Last administered on 09/30/16 12:45; Start 09/30/16 at 11:15; Stop 09/30/16 at 11:16; Status DC Bupivacaine HCl/ Epinephrine Bitart (Sensorcaine-Epinephrine 0.25% Inj) 50 ml STK-MED ONCE .ROUTE ; Start 09/30/16 at 11:15; Stop 09/30/16 at 11:16; Status DC Midazolam HCl (Versed Inj) 2 mg STK-MED ONCE .ROUTE ; Start 09/30/16 at 11:29; Stop 09/30/16 at 11:30; Status DC Famotidine (Pepcid Inj) 20 mg STK-MED ONCE .ROUTE ; Start 09/30/16 at 11:29; Stop 09/30/16 at 11:30; Status DC Sugammadex Sodium ([place] Inj) 200 mg STK-MED ONCE IV PUSH ; Start 09/30/16 at 11:29; Stop 09/30/16 at 11:30; Status DC Dexamethasone Sodium Phosphate (Decadron Inj) 4 mg STK-MED ONCE .ROUTE ; Start 09/30/16 at 11:29; Stop 09/30/16 at 11:30; Status DC Fentanyl Citrate (fentaNYL INJ) 250 mcg STK-MED ONCE .ROUTE ; Start 09/30/16 at 13:15; Stop 09/30/16 at 13:16; Status DC Miscellaneous Information ALL NURSING DEPARTME... UNSCH PRN .XX SEE LABEL COMMENTS; Start 09/30/16 at 13:00; Stop 10/01/16 at 12:59 A/P Assessment and Plan 1. 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 s/p PD access placement . nephrology following. 2. Pneumonia -treated with Ceftriaxone and Azithromycin, blood culture negative . the patient clinically is stable. 3. Hypertension - continue Verapamil- 4. Hyperlipidemia continue Statins 5. COPD stable continue Bronchodilator, Mucolytic and incentive spirometry. 6. Anemia to start Epogen as per Nephrology specialist. DVT prophylaxis with Heparin. Discharge Planning dc home later today - after HD. see med list. f/u; pcp and nephrology and vascular surgery. d/w the patient and RN. d/w . case management consulted for [facility]. time spent 33 min. Kaelyn Briseno MD Oct 01, 2016 08:51
[2016-10-01 09:18] VITALS: O2SAT 95
--- NOTE | 2016-10-01 10:32 | HHI.DS ---
Discharge Summary Admission Date Sep 23, 2016 at 22:57 Discharge Date: Oct 01, 2016 Admitting Diagnosis acute pneumonia, acute on chronic kidney injury (1) Chronic kidney disease ICD Code: N18.9 - Chronic kidney disease Diagnosis: Principal Status: Acute Procedures vas-cath placement peritoneal dialysis catheter placement Brief History - From Admission This is a pleasant 81 y/o male who came to ER with Weakness for the past week, the patient's called due to weakness and no appetite for the past week. The patient reports that he had a cough for the past week for which he tried some old prednisone that he had for the past two days. He reports that he had no relief with the prednisone. The patient denies any nausea, vomiting, diarrhea, or headache. He does however report some chest pain associated with the coughing. He reports his past medical history includes Hypertension, Hyperlipidemia, He denies any smoking, alcohol, or drug use. has history of Kidney failure, followed by Doctor Osman Long Nephrology specialist, Has also COPD. Seen in his bedroom stable Discussed with Doctor Denisse Nephrology specialist the patient will need Hemodialysis. CBC/BMP: 09/30/16200409/29/16 0641 Significant Findings Laboratory Tests Test 09/29/16 06:41 09/30/16 20:05 White Blood Count 13.2 TH/MM3 (4.0-11.0) 13.8 TH/MM3 (4.0-11.0) Red Blood Count 3.28 MIL/MM3 (4.50-5.90) 3.36 MIL/MM3 (4.50-5.90) Hemoglobin 10.5 GM/DL (13.0-17.0) 10.4 GM/DL (13.0-17.0) Hematocrit 30.8 % (39.0-51.0) 31.8 % (39.0-51.0) Platelet Count 73 TH/MM3 (150-450) 68 TH/MM3 (150-450) Neutrophils (%) (Auto) 90.2 % (16.0-70.0) 93.3 % (16.0-70.0) Lymphocytes (%) (Auto) 2.8 % (9.0-44.0) 2.1 % (9.0-44.0) Neutrophils # (Auto) 11.9 TH/MM3 (1.8-7.7) 12.9 TH/MM3 (1.8-7.7) Lymphocytes # (Auto) 0.4 TH/MM3 (1.0-4.8) 0.3 TH/MM3 (1.0-4.8) Platelet Estimate LOW (NORMAL) LOW (NORMAL) Blood Urea Nitrogen 79 MG/DL (7-18) Creatinine 6.67 MG/DL (0.60-1.30) Random Glucose 114 MG/DL (74-106) Estimat Glomerular Filtration Rate 8 ML/MIN (>89) Imaging Last Impressions Chest X-Ray 09/29/16 0700 Signed Impressions: Service Date/Time: Thursday, September 29, 2016 15:44 - CONCLUSION: 1. Cardiomegaly left basilar density. Marcus Shultz MD Catheter Placement X-Ray 09/25/16 0000 Signed Impressions: Service Date/Time: September 08:45 - CONCLUSION: Uncomplicated line placement as above. This can be converted to a PermCath. Abhishek Fatima Jr., MD PE at Discharge GENERAL: This is a well-nourished, well-developed patient, in no apparent distress. CARDIOVASCULAR: Regular rate and regular rhythm without murmurs, gallops, or rubs. RESPIRATORY: Clear to auscultation. Breath sounds equal bilaterally. No wheezes , rales, or rhonchi. GASTROINTESTINAL: Abdomen soft, non-tender, nondistended. Normal, active bowel sounds MUSCULOSKELETAL: Extremities without clubbing, cyanosis, or edema. NEURO: Alert & Oriented x4 to person, place, time, situation. Moves all ext x4 Hospital Course 1. 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 s/p PD access placement . nephrology following. 2. Pneumonia -treated with Ceftriaxone and Azithromycin, blood culture negative . the patient clinically is stable. 3. Hypertension - continue Verapamil- 4. Hyperlipidemia continue Statins 5. COPD stable continue Bronchodilator, Mucolytic and incentive spirometry. 6. Anemia to start Epogen as per Nephrology specialist. Pt Condition on Discharge: Good Discharge Disposition: Disch w/ Home Health Serv Discharge Time: > 30 minutes Discharge Instructions DIET: Follow Instructions for: Renal Failure Diet Activities you can perform: Regular-No Restrictions Follow up Referrals: Nephrology PCP Follow-up Surgical Continued Medications: Calcitriol (Calcitriol) 0.25 Mcg Cap 0.25 MCG PO DAILY for Calcium Supplement, #30 CAP 0 Refills Cholecalciferol (D3) 400 Unit Cap Clopidogrel (Clopidogrel) 75 Mg Tab 75 MG PO DAILY for Blood Clot Prevention, #30 TAB 0 Refills Lovastatin (Lovastatin) 40 Mg Tab 40 MG PO DAILY for Cholesterol Management, #30 TAB 0 Refills Multivitamin (Men's Multi-Vitamin) 1 Each Tablet Tamsulosin (Tamsulosin) 0.4 Mg Cap 0.4 MG PO HS for Manage Prostate Problems, #30 CAP 0 Refills Travoprost Opth Drops (Travatan Z Opth Drops) 0.004 % Soln 1 DROP EACH EYE HS for Glaucoma, #1 BOTTLE 0 Refills Verapamil (Verapamil) 120 Mg Tab 120 MG PO BID, #60 TAB 0 Refills Discontinued Medications: Losartan (Losartan) 25 Mg Tab 25 MG PO DAILY for Blood Pressure Management, #30 TAB 0 Refills Kaelyn Briseno MD Oct 01, 2016 10:32
[2016-10-01] MEDS: HEPARIN SODIUM - IV 10,000 UNITS/10 ML VIAL OTHER PRN (11:37)
[2016-10-01] MEDS: EPOETIN ALFA 10,000 UNITS/ML VIAL IV PRN (11:37)
[2016-10-01] MEDS: GENTAMICIN SULFATE (DIALYSIS USE ONLY) 20 MG/2 ML VIAL OTHER PRN (11:37)
--- NOTE | 2016-10-01 13:54 | HHI.NPPN ---
Subjective General Problems: Anemia Renal Failure: Chronic, End Stage Renal Disease Interval History PD catheter placed without complication yesterday. Due today for dialysis. (Jania Gallagher) Review of Systems General Constitutional: Fatigue (Jania Gallagher) Objective Data Data Vital Signs Date Time Temp Pulse Resp B/P (MAP) Pulse Ox O2 Delivery O2 Flow Rate FiO2 10/01/16 09:18 95 21 10/01/16 08:00 97.9 70 18 185/78 (113) 95 09/30/16 22:00 60 09/30/16 20:00 97.5 63 20 170/78 (108) 94 09/30/16 16:20 98 Nasal Cannula 2.00 09/30/16 16:00 96.7 61 16 142/63 (89) 98 09/30/16 14:00 98.2 53 21 104/56 (72) 99 Nasal Cannula 2 (Jania Gallagher) -: 09/30/16200409/29/16 0641 Tubes & Lines: Vas-Cath, Tenckhoff Catheter (Jania Gallagher) Physical Exam General Appearance: Well Developed, Well Nourished, No Acute Distress, Comfortable (Jania Gallagher) Throat Throat Exam: Oral Mucosa [place] & Moist (Jania Gallagher) Pulmonary Resp Exam: Clear Bilaterally, Breath Sounds Equal, No Distress (Jania Gallagher) Cardiology CV Exam: Regular, Normal Sinus Rhythm (Jania Gallagher) Gastrointestinal/Abdomen GI Exam: Soft, Non-Tender, Bowel Sounds Present (Jania Gallagher) Musculoskeletal MS Exam: Joints Intact, Normal Gait, Normal Tone (Jania Gallagher) Integumentary Skin Exam: Clear, Warm, Dry, Intact (Jania Gallagher) Extremeties Extremities Exam: No Edema, Pedal Pulses Palpable (Jania Gallagher) Neurologic Neuro Exam: Alert, Awake, Oriented, Speech Clear, Moving All Extremities (Jania Gallagher) Psychiatric Psych Exam: Appropriate Responses (Jania Gallagher) Assessment/Plan Discussed Condition With: Patient Assessment Summary: Anemia of CKD, End Stage Renal Disease Problem List: (1) Chronic kidney disease ICD Codes: N18.9 - Chronic kidney disease Status: Acute Plan: Presented with advanced renal disease, vascath placed and first HD was on 09/25 due today for HD s/p PD catheter placement, to begin rapid start PD (training) beginning @ 8am at [facility] in [facility], patient and are aware after dialysis he can be discharged HD nurses to remove vascath after treatment on Megace for appetite stimulation (2) Pneumonia ICD Codes: J18.9 - Pneumonia Status: Acute Plan: he is on Zithromax and Rocephin for LLL pneumonia clinically improved convert to PO antibiotics if needed (3) Hypertension ICD Codes: I10 - Hypertension Status: Chronic Plan: BP stable, he is on verapamil (4) Hyperlipidemia ICD Codes: E78.5 - Hyperlipidemia Status: Chronic Plan: continue statin (5) Anemia ICD Codes: D64.9 - Anemia, unspecified Status: Acute Plan: He has anemia of chronic disease on Epogen with HD (Jania Gallagher) Plan patient was seen and examined. Agree with above assessment and plan. Possible discharge today after HD. Underwent PD catheter placement. Urgent start PD from tomorrow. (Gabriel Salcedo MD) Problem Qualifiers (1) Pneumonia: Jania Gallagher Oct 01, 2016 13:54 Gabriel Salcedo MD Oct 01, 2016 20:27
[2016-10-01] MEDS ORDERED: NORC5TAB PO (15:09)
[2016-10-01 16:00] VITALS: BP 141/69; PULSE 70; RESP 16; TEMP 95.7; O2SAT 94
--- NOTE | 2016-10-27 08:16 | MP ---
cc: MARÍA KOTHARI M.D. DATE OF SURGERY: 09/30/2016 PREOPERATIVE DIAGNOSIS Chronic kidney disease with need for permanent hemodialysis access. POSTOPERATIVE DIAGNOSIS Chronic kidney disease with need for permanent hemodialysis access. PROCEDURE Laparoscopic-assisted peritoneal dialysis catheter placement. SURGEON Mohit Kothari. ANESTHESIA General endotracheal/local. DESCRIPTION OF PROCEDURE With the patient in the supine position, general endotracheal anesthesia was induced. The abdomen was thoroughly prepped with Betadine and draped in a sterile fashion. Appropriate IV antibiotic prophylaxis was administered and following a protocol timeout, the skin and subcutaneous tissue along the left infracostal region infiltrated with 1% Xylocaine with epinephrine. A transverse 2 cm incision was performed through the skin and subcutaneous tissue and anterior rectus fascia. The rectus muscle fibers were , posterior rectus sheath and peritoneum elevated, and a small peritoneotomy performed through which a 5 mm Surgiport was bluntly advanced into the peritoneal space. The abdomen was insufflated with carbon dioxide. Skin and subcutaneous tissue immediately inferior and lateral to the umbilicus was infiltrated with 1% Xylocaine with epinephrine. A transverse 2 cm incision was performed through the skin, subcutaneous tissue and anterior rectus fascia. An 18-gauge needle was then guided obliquely and caudally between the anterior and posterior rectus sheaths and under laparoscopic visualization punctured through the posterior rectus sheath and peritoneum and directed toward the mid pelvis. A J-wire was directed through the needle into the mid pelvis region. The needle was exchanged for a catheter insertion sheath. The dilator was removed. A coiled peritoneal dialysis catheter was delivered through the tearaway sheath and the coil positioned within the mid pelvis. The internal catheter cuff was placed subjacent to the rectus sheathotomy which was secured with interrupted 0 PDS. The subcutaneous portion of the catheter was tunneled and exited through a separate stab incision. A titanium adapter was applied to the catheter tip which was then flushed with saline and capped. The abdomen was desufflated. The left subcostal rectus sheathotomy was closed with interrupted 0 PDS. Both skin incisions were secured with continuous subcuticular 5-0 Monocryl, reinforced with Steri-Strips and covered with sterile gauze. The catheter exit site was dressed with sterile gauze and Tegaderm. There were no operative complications. The instrument, needle and sponge count were correct x2. The patient returned to the recovery room in stable condition having tolerated the procedure well. MD VIRY Tenorio/ELIZA /12:28 PM /8:08 AM
== END 2016-10-01 17:39 | disposition home health service (06) | DRG 981 ==
LOC: NEPE 21:06 → NEDA 22:57 → NEDH 09-24 02:57 → NEDA 09-24 10:10 → NEPGCP 09-24 12:58 → N07B 09-25 15:14
PROVIDERS: ADMIT Internal Medicine; ATTEND Internal Medicine
PROC: 02HV33Z Insertion of Infusion Device into Superior Vena Cava, Percutaneous Approach (ICD-10-PCS; 2016-09-25)
PROC: B518ZZA Fluoroscopy of Superior Vena Cava, Guidance (ICD-10-PCS; 2016-09-25)
PROC: 5A1D60Z (ICD-10-PCS; 2016-09-25)
PROC: 0WHG43Z Insertion of Infusion Device into Peritoneal Cavity, Percutaneous Endoscopic Approach (ICD-10-PCS; principal; 2016-09-30 11:28)
DX: J44.0 Chronic obstructive pulmonary disease with (acute) lower respiratory infection (principal); J18.9 Pneumonia, unspecified organism; N17.9 Acute kidney failure, unspecified; E87.2 Acidosis; I12.0 Hypertensive chronic kidney disease with stage 5 chronic kidney disease or end stage renal disease; N18.5 Chronic kidney disease, stage 5; D63.1 Anemia in chronic kidney disease; N25.81 Secondary hyperparathyroidism of renal origin; E78.5 Hyperlipidemia, unspecified
CPT/HCPCS: 36556; 71010; 71020; 76937; 77001; 80048; 80053; 80069; 80074; 82728; 83540; 83550; 83605; 83735; 83880; 84100; 84484; 85025; 85610; 85730; 87040; 90935; 93005; 94150; 94640; 94664; 96374; 96375; C1750; C1752; J0456; J0696; J1100; J1580; J1644; J2250; J2370; J2405; J3010; J7030; J7050; J7120; Q4081

== ENCOUNTER → 2016-11-26 | Outpatient (CLI) | payer MEDICARE ==
[~2016-11-26] MED LIST changes: +CALC0.25 PO; +CLOP75TA PO; +D3400CAP; -GABA300C3 PO; +MULT-267; -MULT1TAB; +NORC5TAB PO; -PLAV75TA PO; -PRED5PAK PO; +TAMS0.4C4 PO; -TAMS5CAP PO; -VITA200017 PO
[2016-11-26 12:42] LABS: HEMATOCRIT 33.2 % (39.0-51.0); MEAN CELL VOLUME 97.1 FL (80.0-100.0); MEAN CORPUSCULAR HEMOGLOBIN 32.7 PG (27.0-34.0); MEAN CORPUSCULAR HGB CONC 33.6 % (32.0-36.0); PLATELET COUNT 232 TH/MM3 (150-450); RED BLOOD COUNT 3.42 MIL/MM3 (4.50-5.90); RED CELL DISTRIBUTION WIDTH 14.5 % (11.6-17.2); REVIEW FLAG FINAL; WHITE BLOOD COUNT 6.7 TH/MM3 (4.0-11.0)
[2016-11-26 12:51] LABS: ALT (GPT) 23 U/L (12-78); ANION GAP 11 MEQ/L (5-15); AST (GOT) 17 U/L (15-37); BICARBONATE 24.9 MEQ/L (21.0-32.0); CHLORIDE 103 MEQ/L (98-107); GLOMERULAR FILTRATION RATE 8 ML/MIN (>89); GLUCOSE,FASTING 87 MG/DL (74-99); SODIUM (NA) 139 MEQ/L (136-145)
[2016-11-26 12:58] LABS: ALKALINE PHOSPHATASE 47 U/L (45-117); BLOOD UREA NITROGEN 66 MG/DL (7-18); HDL CHOLESTEROL 50.5 MG/DL (40.0-60.0); LDL CHOLESTEROL 53 MG/DL (0-99); TOTAL BILIRUBIN ADULT 0.3 MG/DL (0.2-1.0)
[2016-11-26 17:42] LABS: HEMOGLOBIN A1a 0.7 %; HEMOGLOBIN A1b 1.8 %; HEMOGLOBIN LA1C 2.6 %; HEMOGLOBIN P3 6.3 %
== END ==
LOC: ELAB 09:58
PROVIDERS: ATTEND Family Medicine
DX: J45.21 Mild intermittent asthma with (acute) exacerbation (principal); E78.5 Hyperlipidemia, unspecified; I12.9 Hypertensive chronic kidney disease with stage 1 through stage 4 chronic kidney disease, or unspecified chronic kidney disease; N18.4 Chronic kidney disease, stage 4 (severe); E11.22 Type 2 diabetes mellitus with diabetic chronic kidney disease; Z12.5 Encounter for screening for malignant neoplasm of prostate
CPT/HCPCS: 36415; 80053; 80061; 83036; 84443; 85027; G0103

== ENCOUNTER 2017-02-11 13:00 | Inpatient (IN) | payer MEDICARE ==
[~2017-02-11] VITALS: Ht 167.6 cm; Wt 77.4 kg
[2017-02-11 13:02] VITALS: BP 123/74; PULSE 84; RESP 18; TEMP 98.7; O2SAT 95
[2017-02-11 13:46] LABS: AUTOMATED NEUTROPHIL # 14.1 TH/MM3 (1.8-7.7); BASOPHIL # 0.1 TH/MM3 (0-0.2); BASOPHIL % 0.3 % (0.0-2.0); EOSINOPHIL # 0.1 TH/MM3 (0-0.4); EOSINOPHIL % 0.5 % (0.0-4.0); HEMATOCRIT 29.2 % (39.0-51.0); HEMOGLOBIN 9.8 GM/DL (13.0-17.0); LYMPHOCYTE # 1.2 TH/MM3 (1.0-4.8); MEAN CELL VOLUME 92.7 FL (80.0-100.0); MEAN CORPUSCULAR HEMOGLOBIN 31.1 PG (27.0-34.0); MEAN CORPUSCULAR HGB CONC 33.6 % (32.0-36.0); MONO % 10.2 % (0.0-8.0); MONOCYTE # 1.8 TH/MM3 (0-0.9); PLATELET COUNT 67 TH/MM3 (150-450); RED BLOOD COUNT 3.15 MIL/MM3 (4.50-5.90); RED CELL DISTRIBUTION WIDTH 16.6 % (11.6-17.2); WHITE BLOOD COUNT 17.2 TH/MM3 (4.0-11.0)
[2017-02-11 13:56] LABS: INTERNATIONAL NORMALIZED RATIO 1.4 RATIO; PROTHROMBIN TIME - PATIENT 13.7 SEC (9.8-11.6)
[2017-02-11 14:07] LABS: LACTIC ACID SEPSIS PROTOCOL 2.5 mmol/L (0.4-2.0)
[2017-02-11 14:08] LABS: BICARBONATE 24.8 MEQ/L (21.0-32.0); CALCIUM 9.3 MG/DL (8.5-10.1); CREATININE 7.96 MG/DL (0.60-1.30); MAGNESIUM 2.1 MG/DL (1.5-2.5)
--- NOTE | 2017-02-11 14:17 | RADRPT ---
EXAM DATE/TIME: 02/11/2017 13:32 [facility] COMPARISON: CHEST SINGLE AP, September 23, 2016, 21:48. INDICATIONS : Short of breath, cough MEDICAL HISTORY : Hypertension. dialysis SURGICAL HISTORY : Tonsillectomy. ENCOUNTER: Initial ACUITY: 1 day PAIN SCORE: 0/10 LOCATION: Bilateral chest FINDINGS: The heart is stable. Bibasilar patchiness is noted consistent with atelectasis and/or infiltrates. Th e pulmonary vascular pattern is normal. CONCLUSION: Bibasilar patchiness consistent with atelectasis and/or infiltrate. Francisco Darling MD on February 11, 2017 at 14:14 Board Certified Radiologist. This report was verified electronically.
[2017-02-11 14:25] LABS: TROPONIN I 1.04 NG/ML (0.02-0.05)
--- NOTE | 2017-02-11 14:52 | PD ---
HPI Chief Complaint: Respiratory Distress Time Seen by Provider: 14:36 Travel History International Travel<30 days: Yes Contact w/Intl Traveler<30days: Yes Name of Country Traveled to: [place], [place] Traveled to known affect area: No History of Present Illness HPI 81-year-old male with a history of COPD on peritoneal dialysis presents to emergency department complaining of increased shortness of breath, nonproductive cough, decreased appetite, and weakness for approximately 1 week. Patient states that he went to his primary care physician and they ordered a chest x-ray which demonstrated pneumonia. Patient was treated with azithromycin but his symptoms did not resolve. Denies fevers, nausea, vomiting, diarrhea. Patient denies chest pain, recent travel, or blood disorders. Denies cardiac history. PFSH Past Medical History Hx Anticoagulant Therapy: Yes Cancer: No Cardiovascular Problems: Yes (HTN, hyperlipidemia) High Cholesterol: Yes COPD: Yes Endocrine: No Genitourinary: Yes Hypertension: Yes Immune Disorder: No Musculoskeletal: No Neurologic: No Psychiatric: No Reproductive: No Respiratory: Yes (COPD) Past Surgical History Oral Surgery: Yes (TONSILLECTOMY) Pacemaker: No Other Surgery: Yes Social History Alcohol Use: No Tobacco Use: No Substance Use: No Allergies-Medications (Allergen,Severity, Reaction): Coded Allergies: No Known Allergies (Unverified , 09/23/16) Reported Meds & Prescriptions Reported Meds & Active Scripts Active Reported Everetts (Hydrocodone-Acetaminophen) 5-325 mg Tab 1 Tab PO Q6H PRN Travatan Z Opth Drops (Travoprost) 0.004 % Soln 1 Drop EACH EYE HS Tamsulosin (Tamsulosin HCl) 0.4 Mg Cap 0.4 Mg PO HS Lovastatin 40 Mg Tab 40 Mg PO DAILY Clopidogrel (Clopidogrel Bisulfate) 75 Mg Tab 75 Mg PO DAILY D3 (Cholecalciferol) 400 Unit Cap Men's Multi-Vitamin (Multivitamin) 1 Each Tablet Verapamil (Verapamil HCl) 120 Mg Tab 120 Mg PO BID Calcitriol 0.25 Mcg Cap 0.25 Mcg PO DAILY Review of Systems Except as stated in HPI: all other systems reviewed are Neg Physical Exam Narrative GENERAL: Well-nourished in no apparent distress, sitting up, wet cough SKIN: Focused skin assessment warm/dry. HEAD: Atraumatic. Normocephalic. EYES: Pupils equal and round. No scleral icterus. No injection or drainage. ENT: No nasal bleeding or discharge. Mucous membranes pink and moist. NECK: Trachea midline. No JVD. No lymphadenopathy CARDIOVASCULAR: Regular rate and rhythm. No murmur appreciated. RESPIRATORY: No accessory muscle use. Bilateral and rhonchi present GASTROINTESTINAL: Abdomen soft, non-tender, nondistended. Hepatic and splenic margins not palpable. MUSCULOSKELETAL: No obvious deformities. No clubbing. No cyanosis. No edema. NEUROLOGICAL: Awake and alert. No obvious cranial nerve deficits. Motor grossly within normal limits. Normal speech. PSYCHIATRIC: Appropriate mood and affect; insight and judgment normal. Data Data Last Documented VS Vital Signs Date Time Temp Pulse Resp B/P (MAP) Pulse Ox O2 Delivery O2 Flow Rate FiO2 02/11/17 13:02 98.7 84 18 123/74 (90) 95 Room Air Orders Orders Complete Blood Count With Diff (02/11/17 13:10) Basic Metabolic Panel (Bmp) (02/11/17 13:10) B-Type Natriuretic Peptide (02/11/17 13:10) Act Partial Throm Time (Ptt) (02/11/17 13:10) Prothrombin Time / Inr (Pt) (02/11/17 13:10) Magnesium (Mg) (02/11/17 13:10) Ckmb (Isoenzyme) Profile (02/11/17 13:10) Troponin I (02/11/17 13:10) Electrocardiogram (02/11/17 13:10) Lactic Acid Sepsis Protocol (02/11/17 13:10) Chest, Single Ap (02/11/17 13:10) CKMB (02/11/17 13:25) CKMB% (02/11/17 13:25) Furosemide Inj (Lasix Inj) (02/11/17 15:00) Levofloxacin 750 Mg Premix Inj (Levaquin (02/11/17 15:00) Admit Order (Ed Use Only) (02/11/17 15:20) Consult Nephrology (02/11/17 ) Labs Laboratory Tests Test 02/11/17 13:25 White Blood Count 17.2 TH/MM3 Red Blood Count 3.15 MIL/MM3 Hemoglobin 9.8 GM/DL Hematocrit 29.2 % Mean Corpuscular Volume 92.7 FL Mean Corpuscular Hemoglobin 31.1 PG Mean Corpuscular Hemoglobin Concent 33.6 % Red Cell Distribution Width 16.6 % Platelet Count 67 TH/MM3 Mean Platelet Volume 9.0 FL Neutrophils (%) (Auto) 82.0 % Lymphocytes (%) (Auto) 7.0 % Monocytes (%) (Auto) 10.2 % Eosinophils (%) (Auto) 0.5 % Basophils (%) (Auto) 0.3 % Neutrophils # (Auto) 14.1 TH/MM3 Lymphocytes # (Auto) 1.2 TH/MM3 Monocytes # (Auto) 1.8 TH/MM3 Eosinophils # (Auto) 0.1 TH/MM3 Basophils # (Auto) 0.1 TH/MM3 CBC Comment AUTO DIFF Differential Comment AUTO DIFF CONFIRMED Prothrombin Time 13.7 SEC Prothromb Time International Ratio 1.4 RATIO Activated Partial Thromboplast Time 40.6 SEC Blood Urea Nitrogen 83 MG/DL Creatinine 7.96 MG/DL Random Glucose 107 MG/DL Calcium Level 9.3 MG/DL Magnesium Level 2.1 MG/DL Sodium Level 139 MEQ/L Potassium Level 3.6 MEQ/L Chloride Level 103 MEQ/L Carbon Dioxide Level 24.8 MEQ/L Anion Gap 11 MEQ/L Estimat Glomerular Filtration Rate 7 ML/MIN Lactic Acid Level 2.5 mmol/L Total Creatine Kinase 1503 U/L Creatine Kinase MB 23.0 NG/ML Creatine Kinase MB % 1.5 % Troponin I 1.04 NG/ML B-Type Natriuretic Peptide 3095 PG/ML MDM Medical Decision Making Medical Screen Exam Complete: Yes Emergency Medical Condition: Yes Differential Diagnosis Pneumonia, pulmonary edema, congestive heart failure, COPD exacerbation, Leukocytosis Narrative Course 81-year-old male with a history of COPD on peritoneal dialysis presents to emergency department complaining of increased shortness of breath, nonproductive cough, decreased appetite, and weakness for approximately 1 week. Patient states that he went to his primary care physician and they ordered a chest x-ray which demonstrated pneumonia. Patient was treated with azithromycin but his symptoms did not resolve. Denies fevers, nausea, vomiting, diarrhea. Patient denies chest pain, recent travel, or blood disorders. Denies cardiac history. Vital signs stable. Last Impressions Chest X-Ray 02/11/17 1310 Signed Impressions: Service Date/Time: Saturday, February 11, 2017 13:32 - CONCLUSION: Bibasilar patchiness consistent with atelectasis and/or infiltrate. Francisco Darling MD Laboratory Tests Test 02/11/17 13:25 White Blood Count 17.2 TH/MM3 Red Blood Count 3.15 MIL/MM3 Hemoglobin 9.8 GM/DL Hematocrit 29.2 % Mean Corpuscular Volume 92.7 FL Mean Corpuscular Hemoglobin 31.1 PG Mean Corpuscular Hemoglobin Concent 33.6 % Red Cell Distribution Width 16.6 % Platelet Count 67 TH/MM3 Mean Platelet Volume 9.0 FL Neutrophils (%) (Auto) 82.0 % Lymphocytes (%) (Auto) 7.0 % Monocytes (%) (Auto) 10.2 % Eosinophils (%) (Auto) 0.5 % Basophils (%) (Auto) 0.3 % Neutrophils # (Auto) 14.1 TH/MM3 Lymphocytes # (Auto) 1.2 TH/MM3 Monocytes # (Auto) 1.8 TH/MM3 Eosinophils # (Auto) 0.1 TH/MM3 Basophils # (Auto) 0.1 TH/MM3 CBC Comment AUTO DIFF Differential Comment AUTO DIFF CONFIRMED Prothrombin Time 13.7 SEC Prothromb Time International Ratio 1.4 RATIO Activated Partial Thromboplast Time 40.6 SEC Blood Urea Nitrogen 83 MG/DL Creatinine 7.96 MG/DL Random Glucose 107 MG/DL Calcium Level 9.3 MG/DL Magnesium Level 2.1 MG/DL Sodium Level 139 MEQ/L Potassium Level 3.6 MEQ/L Chloride Level 103 MEQ/L Carbon Dioxide Level 24.8 MEQ/L Anion Gap 11 MEQ/L Estimat Glomerular Filtration Rate 7 ML/MIN Total Creatine Kinase 1503 U/L Creatine Kinase MB 23.0 NG/ML Creatine Kinase MB % 1.5 % Troponin I 1.04 NG/ML B-Type Natriuretic Peptide 3095 PG/ML Patient was previously treated with azithromycin and this has not improved his symptoms. There is concern for a heart related event. Will admit for elevated troponin and pneumonia. Initiated Levaquin 750mg IV in the ED. Patient will be admitted with pneumonia and elevated troponins. His level should be trended. There is concern for an acute cardiac event however, there is no cardiac history. Nephrology consult placed for ESRD on peritoneal dialysis. Diagnosis Primary Impression: Pneumonia Qualified Codes: J18.9 - Pneumonia, unspecified organism Additional Impressions: Troponin level elevated Leukocytosis Qualified Codes: D72.829 - Elevated white blood cell count, unspecified Admitting Information Admitting Physician Requests: Admit Condition: Stable Rochelle Arroyo Feb 11, 2017 14:52
[2017-02-11] MEDS ORDERED: LEVOFLOXACIN 750 MG PREMIX INJ 150 ML IV ONE (15:00)
[2017-02-11] MEDS ORDERED: FUROSEMIDE 100 MG/10 ML VIAL IVP ONE (15:00)
--- NOTE | 2017-02-11 15:19 | PD ---
Data Data Last Documented VS Vital Signs Date Time Temp Pulse Resp B/P (MAP) Pulse Ox O2 Delivery O2 Flow Rate FiO2 02/11/17 13:02 98.7 84 18 123/74 (90) 95 Room Air Orders Orders Complete Blood Count With Diff (02/11/17 13:10) Basic Metabolic Panel (Bmp) (02/11/17 13:10) B-Type Natriuretic Peptide (02/11/17 13:10) Act Partial Throm Time (Ptt) (02/11/17 13:10) Prothrombin Time / Inr (Pt) (02/11/17 13:10) Magnesium (Mg) (02/11/17 13:10) Ckmb (Isoenzyme) Profile (02/11/17 13:10) Troponin I (02/11/17 13:10) Electrocardiogram (02/11/17 13:10) Lactic Acid Sepsis Protocol (02/11/17 13:10) Chest, Single Ap (02/11/17 13:10) CKMB (02/11/17 13:25) CKMB% (02/11/17 13:25) Furosemide Inj (Lasix Inj) (02/11/17 15:00) Levofloxacin 750 Mg Premix Inj (Levaquin (02/11/17 15:00) Labs Laboratory Tests Test 02/11/17 13:25 White Blood Count 17.2 TH/MM3 Red Blood Count 3.15 MIL/MM3 Hemoglobin 9.8 GM/DL Hematocrit 29.2 % Mean Corpuscular Volume 92.7 FL Mean Corpuscular Hemoglobin 31.1 PG Mean Corpuscular Hemoglobin Concent 33.6 % Red Cell Distribution Width 16.6 % Platelet Count 67 TH/MM3 Mean Platelet Volume 9.0 FL Neutrophils (%) (Auto) 82.0 % Lymphocytes (%) (Auto) 7.0 % Monocytes (%) (Auto) 10.2 % Eosinophils (%) (Auto) 0.5 % Basophils (%) (Auto) 0.3 % Neutrophils # (Auto) 14.1 TH/MM3 Lymphocytes # (Auto) 1.2 TH/MM3 Monocytes # (Auto) 1.8 TH/MM3 Eosinophils # (Auto) 0.1 TH/MM3 Basophils # (Auto) 0.1 TH/MM3 CBC Comment AUTO DIFF Differential Comment AUTO DIFF CONFIRMED Prothrombin Time 13.7 SEC Prothromb Time International Ratio 1.4 RATIO Activated Partial Thromboplast Time 40.6 SEC Blood Urea Nitrogen 83 MG/DL Creatinine 7.96 MG/DL Random Glucose 107 MG/DL Calcium Level 9.3 MG/DL Magnesium Level 2.1 MG/DL Sodium Level 139 MEQ/L Potassium Level 3.6 MEQ/L Chloride Level 103 MEQ/L Carbon Dioxide Level 24.8 MEQ/L Anion Gap 11 MEQ/L Estimat Glomerular Filtration Rate 7 ML/MIN Lactic Acid Level 2.5 mmol/L Total Creatine Kinase 1503 U/L Creatine Kinase MB 23.0 NG/ML Creatine Kinase MB % 1.5 % Troponin I 1.04 NG/ML B-Type Natriuretic Peptide 3095 PG/ML MDM Supervised Visit with SANDRINE: Yes Narrative Course The history, exam, and medical decision-making in the associated mid-level provider note were completed with my assistance. I reviewed and agree with the findings presented. I attest that I had a [id number] encounter with the patient on the same day, and personally performed and documented my assessment and findings in the medical record. *My assessment and Findings: 81-year-old man, multiple medical problems including COPD, as heart problems, presents to the ED with shortness of breath and orthopnea, being treated for pneumonia, x-ray reportedly showing infiltrates, now what appears to be more likely pulmonary edema than pneumonia. No fever. Some cough. BNP is elevated. He is on peritoneal dialysis. This seems to be going overall uneventfully. Little bit of trouble the past couple nights last night when well. He'll little bit of edema in his legs. Troponins elevated. EKG without any definite ischemia. This point would recommend admission, treatment for pneumonia, further evaluation for possible fluid overload or CHF. Diagnosis Primary Impression: Pneumonia Qualified Codes: J18.9 - Pneumonia, unspecified organism Additional Impressions: Leukocytosis Qualified Codes: D72.829 - Elevated white blood cell count, unspecified Troponin level elevated Condition: Stable Aleksey Cotto MD Feb 11, 2017 15:18
--- NOTE | 2017-02-11 15:50 | HHI.HP ---
[facility] Service Family Medicine Primary Care Physician Lisa Yousif MD Admission Diagnosis PNA, elevated troponin, leukocytosis Diagnoses: International Travel<30 Days: Yes Contact w/Intl Traveler<30days: Yes Name of Country Traveled to: [facility], [facility] Known Affected Area: No History of Present Illness Patient is a 81-year-old male with past history of renal failure, hypertension who presents today for pneumonia. States that he's had a cough for a week, saw his primary care physician, had received a chest x-ray and saw consolidation on it which prompted him to send him to the ER. States the cough has been constant , dry, feels as though he has mucus to cough up, has some shortness of breath. No chest pain, palpitations, arm pain, jaw pain, diaphoresis, abdominal pain, change in bowel or bladder habits. He reports that he is had to sleep elevated the past few nights, slept in a recliner chair. He also states that he fell yesterday as well as today. He did not hit his head. No loss of consciousness, headache, amnesia, neck pain, change in vision, nausea, vomiting. His reports he usually fell on carpeted surface, she is unsure how long he would be down for, potentially hours. She reports that they had to call the fire department to pick him up at least once. They state he typically has a shuffling gait. They also note that he had recently started peritoneal dialysis in October. They've had no issues with it, the change the dressing around the catheter regularly. No pain, pruritus around catheter site. He reports he is managed by resource specialist Dr. Osman Long. He reports he continues to make urine at this time. He'll usually urinate several times during the day. No other complaints at this time. (Miller Lopez MD R1) Review of Systems Constitutional: COMPLAINS OF: Change in appetite (decreased), DENIES: Diaphoretic episodes, Fatigue, Fever, Weight loss, Chills, Dizziness Endocrine: DENIES: Polydipsia, Polyuria Eyes: DENIES: Blurred vision, Diplopia, Eye inflammation, Eye pain, Vision loss , Photosensitivity, Double Vision Ears, nose, mouth, throat: DENIES: Tinnitus, Hearing loss, Vertigo, Nasal discharge, Oral lesions, Throat pain, Hoarseness, Ear Pain, Running Nose, Epistaxis, Sinus Pain, Toothache, Odynophagia Respiratory: COMPLAINS OF: Shortness of breath, DENIES: Apneas, Cough, Wheezing , Hemoptysis, Sputum production Cardiovascular: COMPLAINS OF: Dyspnea on Exertion, Lower Extremity Edema, Orthopnea, DENIES: Chest pain, Palpitations, Syncope Gastrointestinal: DENIES: Abdominal pain, Black stools, Bloody stools, Constipation, Diarrhea, Nausea, Vomiting, Difficulty Swallowing Genitourinary: COMPLAINS OF: Urgency, DENIES: Urinary frequency, Hematuria, Dysuria, Nocturia Musculoskeletal: DENIES: Joint pain, Muscle aches, Stiffness, Joint Swelling, Back pain Integumentary: DENIES: Abnormal pigmentation, Rash Hematologic/lymphatic: COMPLAINS OF: Bruising (chronic bruises on legs), DENIES : Lymphadenopathy Immunologic/allergic: DENIES: Eczema, Urticaria Neurologic: COMPLAINS OF: Abnormal gait (shuffle), Poor Balance, DENIES: Headache, Localized weakness, Paresthesias, Seizures Psychiatric: DENIES: Anxiety, Confusion, Hallucinations, Suicidal Ideation, Homicidal Ideation (Miller Lopez MD R1) Past Family Social History Past Medical History Renal Failure HLD HTN COPD Past Surgical History None (Miller Lopez MD R1) Allergies: Coded Allergies: No Known Allergies (Unverified , 09/23/16) Family History Father: [place] in his 50s Mother: Passed in child Social History EtOH: Rarely Tobacco: None Drugs: None (Miller Lopez MD R1) Physical Exam Vital Signs Vital Signs Date Time Temp Pulse Resp B/P (MAP) Pulse Ox O2 Delivery O2 Flow Rate FiO2 02/11/17 13:02 98.7 84 18 123/74 (90) 95 Room Air Physical Exam GENERAL: This is a well-nourished, well-developed patient, in no apparent distress. SKIN: No rashes. Ecchymoses, dry skin on bilateral lower legs. Many skin tags. Cool and dry. HEAD: Atraumatic. Normocephalic. No temporal or scalp tenderness. EYES: Pupils equal round and reactive. Extraocular motions intact. No scleral icterus. No injection or drainage. ENT: Nose without bleeding, purulent drainage or septal hematoma. Throat without erythema, tonsillar hypertrophy or exudate. Uvula midline. Airway patent. NECK: Trachea midline. No JVD or lymphadenopathy. Supple, nontender, no meningeal signs. CARDIOVASCULAR: Regular rate and rhythm without murmurs, gallops, or rubs. RESPIRATORY: Clear to auscultation. Breath sounds equal bilaterally. No wheezes , rales, or rhonchi. GASTROINTESTINAL: Abdomen soft, non-tender, nondistended. No hepato-splenomegaly , or palpable masses. No guarding. MUSCULOSKELETAL: Extremities without clubbing, cyanosis, or edema. No joint tenderness, effusion, or edema noted. No calf tenderness. NEUROLOGICAL: Awake and alert. Cranial nerves II through XII intact. Motor and sensory grossly within normal limits. Five out of 5 muscle strength in all muscle groups. Normal speech. Laboratory Laboratory Tests Test 02/11/17 13:25 White Blood Count 17.2 Red Blood Count 3.15 Hemoglobin 9.8 Hematocrit 29.2 Mean Corpuscular Volume 92.7 Mean Corpuscular Hemoglobin 31.1 Mean Corpuscular Hemoglobin Concent 33.6 Red Cell Distribution Width 16.6 Platelet Count 67 Mean Platelet Volume 9.0 Neutrophils (%) (Auto) 82.0 Lymphocytes (%) (Auto) 7.0 Monocytes (%) (Auto) 10.2 Eosinophils (%) (Auto) 0.5 Basophils (%) (Auto) 0.3 Neutrophils # (Auto) 14.1 Lymphocytes # (Auto) 1.2 Monocytes # (Auto) 1.8 Eosinophils # (Auto) 0.1 Basophils # (Auto) 0.1 CBC Comment AUTO DIFF Differential Comment AUTO DIFF CONFIRMED Prothrombin Time 13.7 Prothromb Time International Ratio 1.4 Activated Partial Thromboplast Time 40.6 Blood Urea Nitrogen 83 Creatinine 7.96 Random Glucose 107 Calcium Level 9.3 Magnesium Level 2.1 Sodium Level 139 Potassium Level 3.6 Chloride Level 103 Carbon Dioxide Level 24.8 Anion Gap 11 Estimat Glomerular Filtration Rate 7 Lactic Acid Level 2.5 Total Creatine Kinase 1503 Creatine Kinase MB 23.0 Creatine Kinase MB % 1.5 Troponin I 1.04 B-Type Natriuretic Peptide 3095 (Miller Lopez MD R1) Result Diagram: 02/11/17 1325 02/11/17 1325 Imaging Last 24 hours Impressions Chest X-Ray 02/11/17 1310 Signed Impressions: Service Date/Time: Saturday, February 11, 2017 13:32 - CONCLUSION: Bibasilar patchiness consistent with atelectasis and/or infiltrate. Francisco Darling MD (Miller Lopez MD R1) Caprini VTE Risk Assessment Caprini VTE Risk Assessment: Mod/High Risk (score >= 2) Caprini Risk Assessment Model Point Value = 1 Point Value = 2 Point Value = 3 Point Value = 5 Age 41-60 Minor surgery BMI > 25 kg/m2 Swollen legs Varicose veins or History of unexplained or recurrent spontaneous Oral contraceptives or hormone replacement Sepsis (< 1 month) Serious lung disease, including pneumonia (< 1 month) Abnormal pulmonary function Acute myocardial infarction Congestive heart failure (< 1 month) History of inflammatory bowel disease Medical patient at bed rest Age 61-74 Arthroscopic surgery Major open surgery (> 45 min) Laparoscopic surgery (> 45 min) Malignancy Confined to bed (> 72 hours) Immobilizing plaster cast Central venous access Age >= 75 History of VTE Family history of VTE Factor V Leiden Prothrombin [id number] Lupus anticoagulant Anticardiolipin antibodies Elevated serum homocysteine Heparin-induced thrombocytopenia Other congenital or acquired thrombophilia Stroke (< 1 month) Elective arthroplasty Hip, pelvis, or leg fracture Acute spinal cord injury (< 1 month) Prophylaxis Regimen Total Risk Factor Score Risk Level Prophylaxis Regimen 0-1 Low Early ambulation 2 Moderate Order ONE of the following: *Sequential Compression Device (SCD) *Heparin 5000 units SQ BID 3-4 Higher Order ONE of the following medications: *Heparin 5000 units SQ TID *Enoxaparin/Lovenox 40 mg SQ daily (WT < 150 kg, CrCl > 30 mL/min) *Enoxaparin/Lovenox 30 mg SQ daily (WT < 150 kg, CrCl > 10-29 mL/min) *Enoxaparin/Lovenox 30 mg SQ BID (WT < 150 kg, CrCl > 30 mL/min) AND/OR *Sequential Compression Device (SCD) 5 or more Highest Order ONE of the following medications: *Heparin 5000 units SQ TID (Preferred with Epidurals) *Enoxaparin/Lovenox 40 mg SQ daily (WT < 150 kg, CrCl > 30 mL/min) *Enoxaparin/Lovenox 30 mg SQ daily (WT < 150 kg, CrCl > 10-29 mL/min) *Enoxaparin/Lovenox 30 mg SQ BID (WT < 150 kg, CrCl > 30 mL/min) AND *Sequential Compression Device (SCD) (Miller Lopez MD R1) Assessment and Plan Assessment and Plan 81-year-old male with past history of renal failure on peritoneal dialysis who was sent to the ED for pneumonia. Chest x-ray in ED shows bibasilar patchiness consistent with atelectasis and or infiltrate. On labs CK 1503, CK-MB 23, troponin 1.04, BNP 3095. EKG without any definite ischemia as noted by ED physician. Currently without symptoms of myocardial infarction. (Miller Lopez MD R1) Problem List: (1) Pneumonia ICD Codes: J18.9 - Pneumonia Status: Acute Plan: Patient with bibasilar patchiness consistent with atelectasis and or infiltrate. Leukocytosis 17.2. Persistent cough. -Qualifies for sepsis criteria see plan below -Zosyn 2.25 g every 12 -Azithromycin 500 mg daily (2) Troponin level elevated ICD Codes: R74.8 - Abnormal levels of other serum enzymes; N18.9 - Chronic kidney disease, unspecified Status: Acute Plan: Initial troponin level 0.95, historically 0.22 on 09/23/16. Currently without symptoms of myocardial infarction -Trend troponins every 6 hours -Trend electrocardiogram -Consult cardiology, appreciate recommendations (3) Elevated brain natriuretic peptide (BNP) level ICD Codes: R79.89 - Other specified abnormal findings of blood chemistry Plan: Elevated BNP on admission of 3095. Historically 400 on 09/23/16 -Follow up echocardiogram -Cardiology consulted, appreciate recommendations -Continue peritoneal dialysis -Furosemide 60 mg given once in ED (4) Sepsis ICD Codes: A41.9 - Sepsis, unspecified organism Status: Acute Plan: Leukocytosis, respiration rate of 20. No tachycardia, afebrile. -See pneumonia for antibiotics -Lactic acid 2.5, follow-up lactic acid -No signs of severe sepsis at this time. -Follow up cultures (5) Elevated CK ICD Codes: R74.8 - Abnormal levels of other serum enzymes Plan: CK 1503 on admission. Reports multiple falls with multiple hours being down. Has renal failure. Continue to trend. -Follow-up CK (6) FEN Plan: Fluids: Tolerating fluids by mouth Electrolytes: Monitor and replete as needed Nutrition: Nothing by mouth at this time (Miller Lopez MD R1) Problem List: (1) Pneumonia ICD Codes: J18.9 - Pneumonia Status: Acute Plan: Patient with bibasilar patchiness consistent with atelectasis and or infiltrate. Leukocytosis 17.2. Persistent cough. -Qualifies for sepsis criteria see plan below -Zosyn 2.25 g every 12 -Azithromycin 500 mg daily (2) Troponin level elevated ICD Codes: R74.8 - Abnormal levels of other serum enzymes; N18.9 - Chronic kidney disease, unspecified Status: Acute Plan: Initial troponin level 0.95, historically 0.22 on 09/23/16. Currently without symptoms of myocardial infarction -Trend troponins every 6 hours -Trend electrocardiogram -Consult cardiology, appreciate recommendations (3) Elevated brain natriuretic peptide (BNP) level ICD Codes: R79.89 - Other specified abnormal findings of blood chemistry Plan: Elevated BNP on admission of 3095. Historically 400 on 09/23/16 -Follow up echocardiogram -Cardiology consulted, appreciate recommendations -Continue peritoneal dialysis -Furosemide 60 mg given once in ED (4) Sepsis ICD Codes: A41.9 - Sepsis, unspecified organism Status: Acute Plan: Leukocytosis, respiration rate of 20. No tachycardia, afebrile. -See pneumonia for antibiotics -Lactic acid 2.5, follow-up lactic acid -No signs of severe sepsis at this time. -Follow up cultures (5) Elevated CK ICD Codes: R74.8 - Abnormal levels of other serum enzymes Plan: CK 1503 on admission. Reports multiple falls with multiple hours being down. Has renal failure. Continue to trend. -Follow-up CK (6) FEN Plan: Fluids: Tolerating fluids by mouth Electrolytes: Monitor and replete as needed Nutrition: Nothing by mouth at this time See the residents documentation for details. I saw and evaluated the patient regarding the beck portions of this evaluation and agree with the residents findings and plans as written. I have reviewed the patients past medical/surgical and social histories and updated as appropriate. Parts of this note were created using [employer] voice recognition software program. While efforts were made to correct any mistakes made by this software, some mistakes, errors, and omissions may remain in the final note that were not caught when the note was originally created. Plan of care was discussed and agreed upon with the patient as specifically documented in the above note. An opportunity to ask questions with explanation was provided. Patient voiced understanding on all information reviewed and discussed. (Sylvester Ayoub MD) Physician Certification 2 Midnight Certification Type: Admission for Inpatient Services Order for Inpatient Services The services are ordered in accordance with Medicare regulations or non- Medicare payer requirements, as applicable. In the case of services not specified as inpatient-only, they are appropriately provided as inpatient services in accordance with the 2-midnight benchmark. Estimated LOS (days): 2 2 days is the estimated time the patient will need to remain in the hospital, assuming treatment plan goals are met and no additional complications. Post-Hospital Plan: Home (Miller Lopez MD R1) Problem Qualifiers (1) Pneumonia: Qualified Codes: J18.9 - Pneumonia, unspecified organism Miller Lopez MD R1 Feb 11, 2017 15:50 Sylvester Ayoub MD Feb 12, 2017 15:20
[2017-02-11] MEDS ORDERED: SODIUM CHLORIDE 0.9% FLUSH 10 ML FLUSH IV FLUSH PRN ×2 (16:15→17:15)
[2017-02-11] MEDS ORDERED: ONDANSETRON HCL 4 MG/2 ML VIAL IV PUSH PRN (16:15)
[2017-02-11] MEDS ORDERED: ACETAMINOPHEN 325 MG TAB PO PRN (16:15)
--- NOTE | 2017-02-11 17:04 | PD.CONS ---
HPI Service Nephrology Consult Requested By Reason for Consult ESRD on PD Primary Care Physician Lisa Yousif MD History of Present Illness This is out 81 y.o dialysis patient on PD who was admitted for fatigue, course but non productive cough, lethargy. Chest xray showing infiltrate, lung sounds course. He has not missed any dialysis. He has fluid in his lower extremities. We were consulted to assist with management. Of note his troponin is elevated, he denies recent chest pain or other cardiac symptoms. (Jania Gallagher) Review of Systems Constitutional: COMPLAINS OF: Fatigue, Fever Respiratory: COMPLAINS OF: Cough, Wheezing, Sputum production, Shortness of breath Cardiovascular: COMPLAINS OF: Dyspnea on Exertion, Lower Extremity Edema, DENIES: Chest pain, Palpitations (Jania Gallagher) Past Family Social History Allergies: Coded Allergies: No Known Allergies (Unverified , 09/23/16) Past Medical History ESRD on PD HTN anemia hyperlipidemia secondary hyperparathyroidism Past Surgical History Tonsillectomy Reported Medications [place] (Hydrocodone-Acetaminophen) 5-325 mg Tab 1 Tab PO Q6H PRN Travatan Z Opth Drops (Travoprost) 0.004 % Soln 1 Drop EACH EYE HS Tamsulosin (Tamsulosin HCl) 0.4 Mg Cap 0.4 Mg PO HS Lovastatin 40 Mg Tab 40 Mg PO DAILY Clopidogrel (Clopidogrel Bisulfate) 75 Mg Tab 75 Mg PO DAILY D3 (Cholecalciferol) 400 Unit Cap Men's Multi-Vitamin (Multivitamin) 1 Each Tablet Verapamil (Verapamil HCl) 120 Mg Tab 120 Mg PO BID Calcitriol 0.25 Mcg Cap 0.25 Mcg PO DAILY Active Ordered Medications Current Medications Medications (Trade) Dose Ordered Sig/[place] Route Start Time Stop Time Status Last Admin (NS Flush) 2 ml UNSCH PRN IV FLUSH 02/11/17 16:15 UNV (NS Flush) 2 ml BID IV FLUSH 02/11/17 21:00 UNV Piperacillin Sod/ Tazobactam Sod 100 ml @ 200 mls/hr Q6H IV 02/11/17 16:15 UNV (Zithromax) 500 mg Q24H PO 02/11/17 16:15 UNV (Duoneb Neb) 1 ampule Q6HR NEB INH 02/11/17 22:00 UNV (Tylenol) 650 mg Q4H PRN PO 02/11/17 16:15 UNV (Zofran Inj) 4 mg Q6H PRN IV PUSH 02/11/17 16:15 UNV (Heparin Inj) 5,000 units Q12H SQ 02/11/17 16:15 UNV (Rocaltrol) 0.25 mcg DAILY PO 02/12/17 09:00 UNV (Plavix) 75 mg DAILY PO 02/12/17 09:00 UNV (Pravachol) 40 mg DAILY PO 02/12/17 09:00 UNV (Flomax) 0.4 mg HS PO 02/11/17 21:00 UNV (Isoptin) 120 mg BID PO 02/11/17 21:00 UNV Non-Formulary Medication 1 drop HS EACH EYE 02/11/17 21:00 UNV (Albuterol Neb) 2.5 mg Q2HR NEB PRN NEB 02/11/17 16:15 UNV Family History Non contributory Social History Non smoker No ETOH Uses cane to ambulate Full code (Jania Gallagher) Physical Exam Vital Signs Vital Signs Date Time Temp Pulse Resp B/P (MAP) Pulse Ox O2 Delivery O2 Flow Rate FiO2 02/11/17 16:28 02/11/17 13:02 98.7 84 18 123/74 (90) 95 Room Air Physical Exam male, he is sitting in bed in no distress Neuro: oriented x 3 but lethargic CV: S1/S2, RRR no murmurs Lungs; crackles, rales, wheezing, he is coughing frequently during exam (non productive) Abd: round, soft, non tender, no hernias present Ext: scars on lower extremities, 2+ edema, painful to touch, pulses 1+ bilaterally Laboratory Laboratory Tests Test 02/11/17 13:25 02/11/17 15:45 White Blood Count 17.2 Red Blood Count 3.15 Hemoglobin 9.8 Hematocrit 29.2 Mean Corpuscular Volume 92.7 Mean Corpuscular Hemoglobin 31.1 Mean Corpuscular Hemoglobin Concent 33.6 Red Cell Distribution Width 16.6 Platelet Count 67 Mean Platelet Volume 9.0 Neutrophils (%) (Auto) 82.0 Lymphocytes (%) (Auto) 7.0 Monocytes (%) (Auto) 10.2 Eosinophils (%) (Auto) 0.5 Basophils (%) (Auto) 0.3 Neutrophils # (Auto) 14.1 Lymphocytes # (Auto) 1.2 Monocytes # (Auto) 1.8 Eosinophils # (Auto) 0.1 Basophils # (Auto) 0.1 CBC Comment AUTO DIFF Differential Comment AUTO DIFF CONFIRMED Prothrombin Time 13.7 Prothromb Time International Ratio 1.4 Activated Partial Thromboplast Time 40.6 Blood Urea Nitrogen 83 Creatinine 7.96 Random Glucose 107 Calcium Level 9.3 Magnesium Level 2.1 Sodium Level 139 Potassium Level 3.6 Chloride Level 103 Carbon Dioxide Level 24.8 Anion Gap 11 Estimat Glomerular Filtration Rate 7 Lactic Acid Level 2.5 Total Creatine Kinase 1503 Creatine Kinase MB 23.0 Creatine Kinase MB % 1.5 Troponin I 1.04 B-Type Natriuretic Peptide 3095 (Jania Gallagher) Result Diagram: 02/11/17 1325 02/11/17 1325 Imaging Last Impressions Chest X-Ray 02/11/17 1310 Signed Impressions: Service Date/Time: Saturday, February 11, 2017 13:32 - CONCLUSION: Bibasilar patchiness consistent with atelectasis and/or infiltrate. Francisco Darling MD (Jania Gallagher) Assessment and Plan Problem List: (1) ESRD (end stage renal disease) on dialysis ICD Codes: N18.6 - End stage renal disease; Z99.2 - Dependence on renal dialysis Plan: Resume PD, he is on 4 cycles, 9 hrs, 2500 ml; no last fill We will use 2.5% solution tonight Obtain renal profile in AM Avoid IVF administration (2) Pneumonia ICD Codes: J18.9 - Pneumonia Status: Acute Plan: Given Levaquin, ordered Zosyn Oxygen as needed May need Respiratory therapy He has leukocytosis, rule out sepsis Monitor clinically (3) Troponin level elevated ICD Codes: R74.8 - Abnormal levels of other serum enzymes; N18.9 - Chronic kidney disease, unspecified Status: Acute Plan: Cardiology evaluation has been ordered (4) Anemia ICD Codes: D64.9 - Anemia, unspecified Status: Acute Plan: He received 18K Epogen last week, typically receives doses Q2 weeks Consider giving another dose this admission (Jania Gallagher) Assessment and Plan patient was seen and examined. Agree with above assessment and plan. Leukocytosis could be due to pneumonia. Also rule out ACS. Send peritoneal fluid for gram stain and culture. (Gabriel Salcedo MD) Problem Qualifiers (1) Pneumonia: Qualified Codes: J18.9 - Pneumonia, unspecified organism Jania Gallagher Feb 11, 2017 17:04 Gabriel Salcedo MD Feb 11, 2017 18:17
[2017-02-11] MEDS ORDERED: HEPARIN SODIUM - IV 10,000 UNITS/10 ML VIAL XX PRN (17:15)
[2017-02-11 17:30] VITALS: BP 139/63; PULSE 66; RESP 20; TEMP 97.7; O2SAT 96
[2017-02-11 20:00] VITALS: BP 100/58; PULSE 79; RESP 20; TEMP 97.4; O2SAT 97
[2017-02-11 20:19] VITALS: PULSE 75
[2017-02-11] MEDS: AZITHROMYCIN 250 MG TAB PO SCH (21:00)
[2017-02-11] MEDS: BENZONATATE 100 MG CAP PO PRN (21:00)
[2017-02-11] MEDS: VERAPAMIL HCL 120 MG TAB PO SCH (21:00)
[2017-02-11] MEDS: TAMSULOSIN HCL 0.4 MG CAP PO SCH (21:00)
[2017-02-11] MEDS: PIPERACIL-TAZO 2.25 GM PREMIX 50 ML IV SCH (21:02)
[2017-02-11] MEDS: SODIUM CHLORIDE 0.9% FLUSH 10 ML FLUSH IV FLUSH SCH (21:06)
[2017-02-11 21:16] VITALS: O2SAT 97
[2017-02-11] MEDS: RESP: ALBUTEROL 2.5 MG/IPRATROPIUM 0.5 MG NEB (SCH) INH (21:16)
[2017-02-11] MEDS: LATANOPROST 0.005% OPHT SOLN 2.5 ML BTL EACH EYE SCH (23:14)
[2017-02-11] MEDS: guaiFENesin SOLUTION 200 MG/10 ML CUP PO PRN (23:23)
[2017-02-12] VITALS (9 sets, daily range): BP systolic 108–159; BP diastolic 56–77; PULSE 63–83; RESP 16–20; TEMP 97.2–98.1; O2SAT 92–98
[2017-02-12] MEDS: RESP: ALBUTEROL 2.5 MG/3 ML NEB (PRN) NEB (00:59)
[2017-02-12] MEDS: guaiFENesin SOLUTION 200 MG/10 ML CUP PO PRN ×3 (03:19→18:24)
[2017-02-12 03:55] LABS: AUTOMATED NEUTROPHIL # 9.7 TH/MM3 (1.8-7.7); BASOPHIL % 0.3 % (0.0-2.0); EOSINOPHIL # 0.1 TH/MM3 (0-0.4); EOSINOPHIL % 0.9 % (0.0-4.0); HEMATOCRIT 24.1 % (39.0-51.0); HEMOGLOBIN 8.3 GM/DL (13.0-17.0); LYMPH % 7.6 % (9.0-44.0); LYMPHOCYTE # 0.9 TH/MM3 (1.0-4.8); MEAN CELL VOLUME 91.6 FL (80.0-100.0); MEAN CORPUSCULAR HEMOGLOBIN 31.4 PG (27.0-34.0); MEAN CORPUSCULAR HGB CONC 34.3 % (32.0-36.0); MEAN PLATELET VOLUME 9.3 FL (7.0-11.0); MONO % 9.7 % (0.0-8.0); MONOCYTE # 1.2 TH/MM3 (0-0.9); NEUT % 81.5 % (16.0-70.0); PLATELET COUNT 78 TH/MM3 (150-450); RED BLOOD COUNT 2.63 MIL/MM3 (4.50-5.90); RED CELL DISTRIBUTION WIDTH 16.7 % (11.6-17.2); WHITE BLOOD COUNT 11.9 TH/MM3 (4.0-11.0)
[2017-02-12 04:20] LABS: BICARBONATE 26.3 MEQ/L (21.0-32.0); CALCIUM 8.6 MG/DL (8.5-10.1); CREATININE 7.44 MG/DL (0.60-1.30)
[2017-02-12 04:40] LABS: TROPONIN I 0.71 NG/ML (0.02-0.05)
[2017-02-12] MEDS: RESP: ALBUTEROL 2.5 MG/IPRATROPIUM 0.5 MG NEB (SCH) INH ×4 (04:47→21:13)
[2017-02-12] MEDS: HEPARIN SODIUM - SQ 10,000 UNITS/ML VIAL SQ SCH ×2 (05:01→18:24)
[2017-02-12] MEDS: BENZONATATE 100 MG CAP PO PRN ×3 (05:01→18:24)
[2017-02-12 07:38] LABS: OVALOCYTES 1+ (NORMAL)
[2017-02-12 07:39] LABS: HELMET CELLS OCC (NORMAL)
--- NOTE | 2017-02-12 08:42 | ECHRPT ---
Indication: CORONARY ATHEROSCLEROSIS CONCLUSIONS Normal left ventricular size. Mild concentric left ventricular hypertrophy. The left ventricular systolic function is normal with an estimated ejection fraction in the range of 55-60%. No regional wall motion abnormalities are present. LVH with normal LV function. The right ventricular size is normal. The right ventricular systoilc function is moderately decreased. Mitral annular calcification is present. Trace mitral valve regurgitation. Aortic valve sclerosis is present. Trace aortic valve regurgitation. There is mild tricuspid valve regurgitation. The estimated pulmonary arterial pressure is 40 mmHg. The pulmonary valve is not well visualized. There is a trivial pericardial effusion present. BP: 109 / 77 HR: 70 Rhythm: MEASUREMENTS (Male / Female) Normal Values Technical Quality:Fair 2D ECHO LV Diastolic Diameter PLAX 4.1 cm 4.2 - 5.9 / 3.9 - 5.3 cm LV Systolic Diameter PLAX 3.4 cm IVS Diastolic Thickness 1.4 cm 0.6 - 1.0 / 0.6 - 0.9 cm LVPW Diastolic Thickness 1.0 cm 0.6 - 1.0 / 0.6 - 0.9 cm LV Relative Wall Thickness 0.6 LA Systolic Diameter LX 3.0 cm 3.0 - 4.0 / 2.7 - 3.8 cm M-MODE Aortic Root Diameter MM 3.1 cm AV Cusp Separation MM 2.1 cm DOPPLER AV Peak Velocity 181.0 cm/s AV Peak Gradient 13.1 mmHg LVOT Peak Velocity 136.0 cm/s LVOT Peak Gradient 7.4 mmHg Mitral E Point Velocity 68.6 cm/s Mitral A Point Velocity 34.1 cm/s Mitral E to A Ratio 2.0 TR Peak Velocity 276.0 cm/s TR Peak Gradient 30.5 mmHg FINDINGS LEFT VENTRICLE Normal left ventricular size. Mild concentric left ventricular hypertrophy. The left ventricular systolic function is normal with an estimated ejection fraction in the range of 55-60%. No regional wall motion abnormalities are present. RIGHT VENTRICLE The right ventricular size is normal. The right ventricular systoilc function is moderately decreased. LEFT ATRIUM The left atrial size is normal. RIGHT ATRIUM The right atrial size is normal. ATRIAL SEPTUM Normal atrial septal thickness without atrial level shunting by limited color doppler interrogation. AORTA The aortic root and proximal ascending aorta are normal in size on limited imaging. MITRAL VALVE Mitral annular calcification is present. Trace mitral valve regurgitation. AORTIC VALVE Aortic valve sclerosis is present. Trace aortic valve regurgitation. TRICUSPID VALVE There is mild tricuspid valve regurgitation. The estimated pulmonary arterial pressure is 40 mmHg. PULMONARY VALVE The pulmonary valve is not well visualized. VESSELS The inferior vena cava is normal in size. PERICARDIUM There is a trivial pericardial effusion present. Arslan Nava MD (Electronically Signed) Final Date:12 February 2017 08:41
[2017-02-12] MEDS: SODIUM CHLORIDE 0.9% FLUSH 10 ML FLUSH IV FLUSH SCH ×2 (09:00→20:35)
[2017-02-12] MEDS: PIPERACIL-TAZO 2.25 GM PREMIX 50 ML IV SCH ×2 (09:07→20:34)
[2017-02-12] MEDS: CLOPIDOGREL 75 MG TAB PO SCH (09:08)
[2017-02-12] MEDS: PRAVASTATIN SOD 40 MG TAB PO SCH (09:08)
[2017-02-12] MEDS: CALCITRIOL 0.25 MCG CAP PO SCH (09:08)
[2017-02-12] MEDS: VERAPAMIL HCL 120 MG TAB PO SCH ×2 (09:08→20:51)
[2017-02-12] MEDS: ASPIRIN EC 81 MG TABEC PO SCH (09:09)
[2017-02-12] MEDS ORDERED: POTASSIUM CHLORIDE 20 MEQ CONTROLLED RELEASE TAB PO ONE (09:30)
--- NOTE | 2017-02-12 10:47 | MB ---
cc: SUKUMAR IRBY M.D. DATE OF CONSULTATION 02/12/2017 REASON FOR CONSULTATION For evaluation of elevated troponin. HISTORY OF PRESENT ILLNESS Irineo Mcgovern is a 81-year-old man admitted to the hospital with pneumonia. He was found to have an elevated troponin. The patient has a longstanding history of hypertension, hyperlipidemia, diabetes and has developed end-stage renal disease. He has been on peritoneal dialysis for the past three months. He is extremely sedentary, started getting sick about a week ago with a cough, shortness of breath, difficulty bringing up any sputum. He has had a couple of falls due to instability. He now has bibasilar patchy infiltrates on his chest x-ray and he is receiving IV antibiotics. His troponin is clearly elevated. I cannot elicit any chest pain from him or chest tightness or chest pressure. When he came in, his lactic acid was elevated. It has since come down. His troponin is also on the way down. He appears to be severely debilitated. He has got a sedentary lifestyle. He has been extremely obese and has been losing weight according to him lately. PAST MEDICAL HISTORY 1. Aortic valve sclerosis. 2. Sleep apnea but does not use CPAP. 3. Kidney disease. 4. Diabetes. 5. Hypertension. 6. Hyperlipidemia. 7. There is a mention in his chart of myasthenia gravis; I could not get this confirmed. 8. Obesity. 9. Abdominal aortic aneurysm detected in the past. 10. Venous insufficiency. PAST SURGICAL HISTORY 1. Left cataract surgery. 2. Tonsillectomy. MEDICATIONS Charted. 1. He has been on clopidogrel chronically. 2. I have added 81 mg of aspirin. 3. He is on losartan 50 mg. 4. Lovastatin 40 mg. 5. Verapamil 120 b.i.d. 6. Tamsulosin 0.4 daily. 7. Vitamin D3. 8. Vitamins. ALLERGIES None known. FAMILY HISTORY Positive for heart attack in his father in the fifties. SOCIAL HISTORY Non-smoker, non-drinker. REVIEW OF SYSTEMS Negative for bleeding. Remaining review of systems negative. PHYSICAL EXAMINATION GENERAL: A chronically ill-appearing white male. He is mildly tachypneic. HEENT: Exam unremarkable. NECK: No bruits, no JVD discernible. CHEST: Diminished breath sounds at the right base. Could not hear any crackles, wheezes or rales. CARDIAC EXAM: S1, S2. Regular rate and rhythm with a I-II/ systolic ejection murmur. PMI is no palpable. ABDOMEN: Obese, soft, nontender. EXTREMITIES: Severe venous insufficiency. Hemosiderosis changes with some scabbing. I can palpate his right femoral pulse. Pedal pulses I cannot appreciate at all. He does have 1-2+ pedal edema. Radial pulses are palpable. ELECTROCARDIOGRAM A regular rhythm. P-waves are extremely small and flat. I am suspicious that it is sinus with first degree block. There is marked T-wave flattening. Both EKGs he has had look the same. LABORATORY DATA Troponin has gone from 0.95 to 0.71. INR is 1.4. Creatinine 7.44, BUN 76, potassium is 3.2. Lactic acid is down from 2.4 to 1.4. CHEST X-RAY Bilateral patchiness. ECHOCARDIOGRAM Left ventricular hypertrophy with normal left ventricular function and I could not find any obvious wall motion abnormalities. IMPRESSION Suspected Type II non-ST segment elevation ID secondary to the pneumonia and lactic acidosis. His troponin is coming down. I suspect he has got severe underlying vascular disease. Right at the moment he is severely debilitated and trying to recover from the pneumonia. I do not think this would be a good time to explore revascularization efforts. I think all this was caused by the pneumonia. PLAN I would like to intensify his medical management. 1. I am adding 81 mg of aspirin on top of the clopidogrel. 2. I will let the verapamil be continued. 3. I am going to add low-dose nitroglycerin paste which I would change to Imdur at discharge. MD AGUSTINA Siegel/SSB /10:01 AM /10:07 AM
--- NOTE | 2017-02-12 12:23 | HHI.NPPN ---
Subjective General Problems: Anemia Renal Failure: Chronic, End Stage Renal Disease Interval History Sitting up in a chair. Course lung sounds. (Jania Gallagher) Review of Systems General Constitutional: Fatigue (Jania Gallagher) Respiratory Lungs: SOB, Cough (Jania Gallagher) Cardiovascular Cardiac: Edema (Jania Gallagher) Objective Data Data Vital Signs Date Time Temp Pulse Resp B/P (MAP) Pulse Ox O2 Delivery O2 Flow Rate FiO2 02/12/17 09:59 93 Nasal Cannula 2.00 02/12/17 09:00 Nasal Cannula 2.00 02/12/17 08:00 63 02/12/17 04:01 77 02/12/17 04:00 97.3 70 20 109/77 (88) 95 02/12/17 00:00 75 02/12/17 00:00 97.2 75 20 108/57 (74) 95 02/11/17 21:16 97 Nasal Cannula 2.00 02/11/17 20:19 75 02/11/17 20:00 97.4 79 20 100/58 (72) 97 02/11/17 19:32 Nasal Cannula 2.00 02/11/17 17:30 97.7 66 20 139/63 (88) 96 02/11/17 16:28 02/11/17 13:02 98.7 84 18 123/74 (90) 95 Room Air (Jania Gallagher) -: 02/12/17 0332 02/12/17 0332 Microbiology 02/12/17 Aerobic Blood Culture, Received Pending 02/12/17 Anaerobic Blood Culture, Received Pending 02/12/17 Aerobic Blood Culture, Received Pending 02/12/17 Anaerobic Blood Culture, Received Pending Imaging Last 72 hours Impressions Chest X-Ray 02/11/17 1310 Signed Impressions: Service Date/Time: Saturday, February 11, 2017 13:32 - CONCLUSION: Bibasilar patchiness consistent with atelectasis and/or infiltrate. Francisco Darling MD Tubes & Lines: Tenckhoff Catheter (Jania Gallagher) Physical Exam General Appearance: No Acute Distress, Comfortable Appearance Remarks chronically ill appearing (Jania Gallagher) Throat Throat Exam: Oral Mucosa Willard & Moist (Jania Gallagher) Pulmonary Resp Exam: Crackles, Rhonchi, Sputum, Decreased Bases (Jania Gallagher) Cardiology CV Exam: Regular, Normal Sinus Rhythm (Jania Gallagher) Gastrointestinal/Abdomen GI Exam: Soft, Non-Tender (Jania Gallagher) Musculoskeletal MS Exam: Joints Intact, Normal Tone (Jania Gallagher) Integumentary Skin Exam: Warm, Dry Skin Remarks multiple abrasions to lower extremities (Jania Gallagher) Extremeties Extremities Exam: Pedal Pulses Palpable, Trace Edema (Jania Gallagher) Neurologic Neuro Exam: Alert, Awake, Oriented, Speech Clear, Moving All Extremities (Jania Gallagher) Psychiatric Psych Exam: Appropriate Responses (Jania Gallagher) Assessment/Plan Discussed Condition With: Patient Assessment Summary: Anemia of CKD, End Stage Renal Disease Electrolyte Assessment: Hypokalemia Problem List: (1) ESRD (end stage renal disease) on dialysis ICD Codes: N18.6 - End stage renal disease; Z99.2 - Dependence on renal dialysis Plan: Continue nightly PD, he is on 4 cycles, 9 hrs, 2500 ml; no last fill We will use 2.5% solution tonight Obtain renal profile in AM Potassium replaced orally Avoid IVF administration (2) Pneumonia ICD Codes: J18.9 - Pneumonia Status: Acute Plan: Given Levaquin, ordered Zosyn Oxygen as needed May need Respiratory therapy He has leukocytosis, rule out sepsis, lactic acid is normal Monitor clinically (3) Troponin level elevated ICD Codes: R74.8 - Abnormal levels of other serum enzymes; N18.9 - Chronic kidney disease, unspecified Status: Acute Plan: Cardiology evaluated, suffered Type II NSTEMI due to pneumonia. Medications added: nitrate, plavix, ASA No plan for revascularization at this time (4) Anemia ICD Codes: D64.9 - Anemia, unspecified Status: Acute Plan: He received 18K Epogen last week, Consider additional dose. Check iron profile. (Jania Gallagher) Plan patient was seen and examined. On treatment for pneumonia. Seen by cardiology. Medical management. (Gabriel Salcedo MD) Problem Qualifiers (1) Pneumonia: Qualified Codes: J18.9 - Pneumonia, unspecified organism Jania Gallagher Feb 12, 2017 12:23 Gabriel Salcedo MD Feb 12, 2017 15:28
[2017-02-12] MEDS: NITROGLYCERIN 2% OINT 1 GM PACKET TOPICAL SCH ×2 (12:33→21:54)
[2017-02-12] MEDS ORDERED: POTASSIUM CHLORIDE 10 MEQ CONTROLLED RELEASE TAB PO ONE (13:00)
--- NOTE | 2017-02-12 14:10 | HHI.HP ---
[facility] Service Family Medicine Primary Care Physician Lisa Yousif MD Admission Diagnosis PNA, elevated troponin, leukocytosis Diagnoses: (1) Pneumonia (2) Troponin level elevated (3) Elevated brain natriuretic peptide (BNP) level (4) Sepsis (5) Elevated CK (6) FEN International Travel<30 Days: Yes Contact w/Intl Traveler<30days: Yes Name of Country Traveled to: carrier clinic, [facility] Known Affected Area: No History of Present Illness Patient was seen and examined today at bedside. He was noted to be resting in a chair by the bed. He denied any complaints at this time. He does state feeling fatigued. He denied any complaint of chest pain, shortness of breath, or abdominal discomfort. States that he was able to undergo his dialysis yesterday, and it went well. Patient was seen by his torch straightener and psychiatric lpn. According to the patient he is feeling much better today, as he did yesterday. Review of Systems Constitutional: COMPLAINS OF: Fatigue, DENIES: Fever Cardiovascular: COMPLAINS OF: Dyspnea on Exertion, Lower Extremity Edema, DENIES: Chest pain, Palpitations, Syncope, Claudication Gastrointestinal: DENIES: Abdominal pain, Black stools, Bloody stools, Constipation, Diarrhea Musculoskeletal: DENIES: Joint pain Other REVIEW OF SYSTEMS: General: Denies fever or other problems. Skin: Denies rash. HEENT: No diplopia. No epistaxis. No headache. Head: Denies head injury. Respiratory: No cough. Denies shortness of breath. Cardiovascular: No chest pain. No reduced exercise tolerance. Gastrointestinal: No abdominal pain. No constipation or diarrhea. No hematemesis and rectal bleeding. Genitourinary: No abnormal urination. Hematologic: No easy bruisability. Neurologic: Denies any issues Psychiatric: Denies problems. Past Family Social History Past Medical History Renal Failure HLD HTN COPD Past Surgical History None Allergies: Coded Allergies: No Known Allergies (Unverified , 09/23/16) Family History Father: [place] in his 50s Mother: Passed in child Social History EtOH: Rarely Tobacco: None Drugs: None Physical Exam Vital Signs Vital Signs Date Time Temp Pulse Resp B/P (MAP) Pulse Ox O2 Delivery O2 Flow Rate FiO2 02/12/17 09:59 93 Nasal Cannula 2.00 02/12/17 09:00 Nasal Cannula 2.00 02/12/17 08:00 63 02/12/17 04:01 77 02/12/17 04:00 97.3 70 20 109/77 (88) 95 02/12/17 00:00 75 02/12/17 00:00 97.2 75 20 108/57 (74) 95 02/11/17 21:16 97 Nasal Cannula 2.00 02/11/17 20:19 75 02/11/17 20:00 97.4 79 20 100/58 (72) 97 02/11/17 19:32 Nasal Cannula 2.00 02/11/17 17:30 97.7 66 20 139/63 (88) 96 02/11/17 16:28 Physical Exam GENERAL: This is a well-nourished, well-developed patient, in no apparent distress. SKIN: Bilateral lower extremity skin eruptions, likely due to fluid. No sign of infection. HEAD: Atraumatic. Normocephalic. No temporal or scalp tenderness. EYES: Pupils equal round and reactive. Extraocular motions intact. No scleral icterus. No injection or drainage. ENT: Nose without bleeding, purulent drainage or septal hematoma. Throat without erythema, tonsillar hypertrophy or exudate. Uvula midline. Airway patent. NECK: Trachea midline. No JVD or lymphadenopathy. Supple, nontender, no meningeal signs. CARDIOVASCULAR: Regular rate and rhythm without murmurs, gallops, or rubs. RESPIRATORY: Coughing during exam. Breath sounds equal bilaterally. Mild bilateral rales/rhonchi. GASTROINTESTINAL: Abdomen soft, non-tender, nondistended. No hepato-splenomegaly , or palpable masses. No guarding. Dialysis port placed. MUSCULOSKELETAL: Extremities without clubbing, cyanosis, or edema. No joint tenderness.No calf tenderness. Negative Homans sign bilaterally. NEUROLOGICAL: Awake and alert. Cranial nerves II through XII intact. Motor and sensory grossly within normal limits. Five out of 5 muscle strength in all muscle groups. Normal speech. Laboratory Laboratory Tests Test 02/11/17 15:45 02/11/17 20:01 02/12/17 03:32 02/12/17 09:22 Lactic Acid Level 1.4 1.9 Troponin I 0.95 0.71 White Blood Count 11.9 Red Blood Count 2.63 Hemoglobin 8.3 Hematocrit 24.1 Mean Corpuscular Volume 91.6 Mean Corpuscular Hemoglobin 31.4 Mean Corpuscular Hemoglobin Concent 34.3 Red Cell Distribution Width 16.7 Platelet Count 78 Mean Platelet Volume 9.3 Neutrophils (%) (Auto) 81.5 Lymphocytes (%) (Auto) 7.6 Monocytes (%) (Auto) 9.7 Eosinophils (%) (Auto) 0.9 Basophils (%) (Auto) 0.3 Neutrophils # (Auto) 9.7 Lymphocytes # (Auto) 0.9 Monocytes # (Auto) 1.2 Eosinophils # (Auto) 0.1 Basophils # (Auto) 0.0 CBC Comment AUTO DIFF Differential Comment AUTO DIFF CONFIRMED Ovalocytes 1+ Helmet Cells OCC Blood Urea Nitrogen 76 Creatinine 7.44 Random Glucose 141 Calcium Level 8.6 Sodium Level 141 Potassium Level 3.2 Chloride Level 102 Carbon Dioxide Level 26.3 Anion Gap 13 Estimat Glomerular Filtration Rate 7 Total Creatine Kinase 765 Creatine Kinase MB 14.4 Creatine Kinase MB % 1.9 B-Type Natriuretic Peptide 1873 Date/Time Source Procedure Growth Status 02/12/17 03:37 Blood Peripheral Aerobic Blood Culture Pending Received 02/12/17 03:37 Blood Peripheral Anaerobic Blood Culture Pending Received Result Diagram: 02/12/17 0332 02/12/17 0332 Imaging Last 24 hours Impressions Chest X-Ray 02/11/17 1310 Signed Impressions: Service Date/Time: Saturday, February 11, 2017 13:32 - CONCLUSION: Bibasilar patchiness consistent with atelectasis and/or infiltrate. MD Ashly Chung VTE Risk Assessment Caprini VTE Risk Assessment: Mod/High Risk (score >= 2) Caprini Risk Assessment Model Point Value = 1 Point Value = 2 Point Value = 3 Point Value = 5 Age 41-60 Minor surgery BMI > 25 kg/m2 Swollen legs Varicose veins or History of unexplained or recurrent spontaneous Oral contraceptives or hormone replacement Sepsis (< 1 month) Serious lung disease, including pneumonia (< 1 month) Abnormal pulmonary function Acute myocardial infarction Congestive heart failure (< 1 month) History of inflammatory bowel disease Medical patient at bed rest Age 61-74 Arthroscopic surgery Major open surgery (> 45 min) Laparoscopic surgery (> 45 min) Malignancy Confined to bed (> 72 hours) Immobilizing plaster cast Central venous access Age >= 75 History of VTE Family history of VTE Factor V Leiden Prothrombin [id number] Lupus anticoagulant Anticardiolipin antibodies Elevated serum homocysteine Heparin-induced thrombocytopenia Other congenital or acquired thrombophilia Stroke (< 1 month) Elective arthroplasty Hip, pelvis, or leg fracture Acute spinal cord injury (< 1 month) Prophylaxis Regimen Total Risk Factor Score Risk Level Prophylaxis Regimen 0-1 Low Early ambulation 2 Moderate Order ONE of the following: *Sequential Compression Device (SCD) *Heparin 5000 units SQ BID 3-4 Higher Order ONE of the following medications: *Heparin 5000 units SQ TID *Enoxaparin/Lovenox 40 mg SQ daily (WT < 150 kg, CrCl > 30 mL/min) *Enoxaparin/Lovenox 30 mg SQ daily (WT < 150 kg, CrCl > 10-29 mL/min) *Enoxaparin/Lovenox 30 mg SQ BID (WT < 150 kg, CrCl > 30 mL/min) AND/OR *Sequential Compression Device (SCD) 5 or more Highest Order ONE of the following medications: *Heparin 5000 units SQ TID (Preferred with Epidurals) *Enoxaparin/Lovenox 40 mg SQ daily (WT < 150 kg, CrCl > 30 mL/min) *Enoxaparin/Lovenox 30 mg SQ daily (WT < 150 kg, CrCl > 10-29 mL/min) *Enoxaparin/Lovenox 30 mg SQ BID (WT < 150 kg, CrCl > 30 mL/min) AND *Sequential Compression Device (SCD) Assessment and Plan Assessment and Plan 81-year-old male with past history of renal failure on peritoneal dialysis who was sent to the ED for pneumonia. Chest x-ray in ED shows bibasilar patchiness consistent with atelectasis and or infiltrate. On labs CK 1503, CK-MB 23, troponin 1.04, BNP 3095. EKG without any definite ischemia as noted by ED physician. Currently without symptoms of myocardial infarction. Problem List: (1) Pneumonia ICD Codes: J18.9 - Pneumonia Status: Acute Plan: Admitted in sepsis protocol. Seems that symptoms are improving. Decrease in his blood white count at this time. We'll continue to monitor with imaging and symptom control. Overall seems to be doing better. (2) Troponin level elevated ICD Codes: R74.8 - Abnormal levels of other serum enzymes; N18.9 - Chronic kidney disease, unspecified Status: Acute Plan: At this time denies any chest pain, or tightness. He has been evaluated by cardiology. Most likely non- [facility] [place] due to pneumonia. Cardiology did not suggest revascularization at this time. Continue to monitor patient. Appreciate recommendations of cardiology. (3) Elevated brain natriuretic peptide (BNP) level ICD Codes: R79.89 - Other specified abnormal findings of blood chemistry Plan: Improving at this time. Continue dialysis. Ejection fraction 55-60. Reviewed the patient's echo. Reviewed cardiology recommendations. (4) Sepsis ICD Codes: A41.9 - Sepsis, unspecified organism Status: Acute Plan: Symptoms is to be improving at this time. We'll follow up on cultures. Continue antibiotic regimen. Hydration. (5) Elevated CK ICD Codes: R74.8 - Abnormal levels of other serum enzymes Plan: Has renal failure. Continue to trend. Numerous recent falls. (6) FEN Plan: Fluids: Tolerating fluids by mouth Electrolytes: Monitor and replete as needed Nutrition: Nothing by mouth at this time I suspect that the patient might need increased care at his house. Placed on fall precautions. Discussed with nursing care about monitoring for falls, and decreasing his risk. Spoke to the patient at length about current condition. We'll have physical therapy evaluate him. Discussed with him about possibly having chcf recommendations. Parts of this note were created using [employer] voice recognition software program. While efforts were made to correct any mistakes made by this software, some mistakes, errors, and omissions may remain in the final note that were not caught when the note was originally created. Plan of care was discussed and agreed upon with the patient as specifically documented in the above note. An opportunity to ask questions with explanation was provided. Medications were reviewed and discussed as appropriate including side effects and risks vs. benefit.. Patient voiced understanding on all information reviewed and discussed. Physician Certification 2 Midnight Certification Type: Admission for Inpatient Services Order for Inpatient Services The services are ordered in accordance with Medicare regulations or non- Medicare payer requirements, as applicable. In the case of services not specified as inpatient-only, they are appropriately provided as inpatient services in accordance with the 2-midnight benchmark. Estimated LOS (days): 2 days is the estimated time the patient will need to remain in the hospital, assuming treatment plan goals are met and no additional complications. Post-Hospital Plan: Home Health Problem Qualifiers (1) Pneumonia: Qualified Codes: J18.9 - Pneumonia, unspecified organism Sylvester Ayoub MD Feb 12, 2017 14:10
[2017-02-12] MEDS: LATANOPROST 0.005% OPHT SOLN 2.5 ML BTL EACH EYE SCH (20:49)
[2017-02-12] MEDS: TAMSULOSIN HCL 0.4 MG CAP PO SCH (20:51)
[2017-02-12] MEDS: AZITHROMYCIN 250 MG TAB PO SCH (20:51)
[2017-02-12] MEDS ORDERED: HYDROcodone 5 MG/HOMATROPINE 1.5 MG SYRUP 5 ML CUP PO ONE (22:30)
[2017-02-13] VITALS (8 sets, daily range): BP systolic 95–153; BP diastolic 53–83; PULSE 63–94; RESP 18–21; TEMP 97.6–98.2; O2SAT 90–96
[2017-02-13] MEDS: RESP: ALBUTEROL 2.5 MG/IPRATROPIUM 0.5 MG NEB (SCH) INH ×4 (04:01→20:59)
[2017-02-13] MEDS: HEPARIN SODIUM - SQ 10,000 UNITS/ML VIAL SQ SCH ×2 (05:20→17:03)
[2017-02-13] MEDS: NITROGLYCERIN 2% OINT 1 GM PACKET TOPICAL SCH ×3 (05:20→21:49)
[2017-02-13 07:32] LABS: HEMATOCRIT 22.2 % (39.0-51.0); HEMOGLOBIN 7.8 GM/DL (13.0-17.0); MEAN CELL VOLUME 91.8 FL (80.0-100.0); MEAN CORPUSCULAR HEMOGLOBIN 32.2 PG (27.0-34.0); MEAN CORPUSCULAR HGB CONC 35.1 % (32.0-36.0); MEAN PLATELET VOLUME 8.7 FL (7.0-11.0); PLATELET COUNT 95 TH/MM3 (150-450); RED BLOOD COUNT 2.42 MIL/MM3 (4.50-5.90); WHITE BLOOD COUNT 9.3 TH/MM3 (4.0-11.0)
[2017-02-13 08:01] LABS: BICARBONATE 28.3 MEQ/L (21.0-32.0); CALCIUM 8.8 MG/DL (8.5-10.1); CREATININE 8.08 MG/DL (0.60-1.30)
[2017-02-13] MEDS: CLOPIDOGREL 75 MG TAB PO SCH (09:00)
[2017-02-13] MEDS: PRAVASTATIN SOD 40 MG TAB PO SCH (09:00)
[2017-02-13] MEDS: BENZONATATE 100 MG CAP PO PRN ×2 (09:00→17:03)
[2017-02-13] MEDS: SODIUM CHLORIDE 0.9% FLUSH 10 ML FLUSH IV FLUSH SCH ×2 (09:00→21:49)
[2017-02-13] MEDS: guaiFENesin SOLUTION 200 MG/10 ML CUP PO PRN ×3 (09:00→17:03)
[2017-02-13] MEDS: VERAPAMIL HCL 120 MG TAB PO SCH ×2 (09:01→21:48)
[2017-02-13] MEDS: PIPERACIL-TAZO 2.25 GM PREMIX 50 ML IV SCH ×2 (09:01→21:48)
[2017-02-13] MEDS: ASPIRIN EC 81 MG TABEC PO SCH (09:01)
[2017-02-13] MEDS: CALCITRIOL 0.25 MCG CAP PO SCH (09:01)
[2017-02-13] MEDS ORDERED: POTASSIUM CHLORIDE 10 MEQ CONTROLLED RELEASE TAB PO ONE (10:00)
--- NOTE | 2017-02-13 10:13 | RADRPT ---
EXAM DATE/TIME: 02/13/2017 09:42 [facility] COMPARISON: CHEST PA & LAT, September 29, 2016, 15:44. INDICATIONS : Cough. MEDICAL HISTORY : History of hyperparathyroidism, HTN, HLD, anemia, pneumonia. SURGICAL HISTORY : Tonsillectomy. ENCOUNTER: Initial ACUITY: 2 days PAIN SCORE: 3/10 LOCATION: upper chest FINDINGS: Mild compensated cardiomegaly. Right lung clear. Minimal parenchymal changes left base. No pleural effusion. The portion of the bony skeleton visualized is unremarkable. CONCLUSION: Minimal parenchymal changes left base Inflammatory process can't be entirely excluded. Kian Adkins MD FACR on February 13, 2017 at 10:04 Board Certified Radiologist. This report was verified electronically.
[2017-02-13] MEDS ORDERED: Vancomycin Consult Pharmacy 1 EA OTHER SCH (10:15)
[2017-02-13] MEDS ORDERED: VANCOMYCIN INJ 1,500 MG in SODIUM CHLORID 0.9% 500 ML INJ 500 ML IV ONE (14:00)
--- NOTE | 2017-02-13 15:05 | HHI.FPPN ---
Subjective Remarks Patient seen and examined this morning. No acute events overnight. Reports continued cough. reports some worsening shortness of breath. Denies any fever/chills, chest pain, abdominal pain. (Steve Gilbert MD, R2) Objective Vitals Vital Signs Date Time Temp Pulse Resp B/P (MAP) Pulse Ox O2 Delivery O2 Flow Rate FiO2 02/13/17 12:00 73 02/13/17 11:09 94 Nasal Cannula 5.00 02/13/17 08:00 64 02/13/17 04:00 98.1 77 20 122/62 (82) 95 02/13/17 00:00 67 02/13/17 00:00 98.2 69 18 131/63 (85) 96 02/12/17 23:00 Nasal Cannula 3.00 02/12/17 21:14 93 Nasal Cannula 3.00 02/12/17 20:00 97.8 75 16 159/65 (96) 92 02/12/17 20:00 Nasal Cannula 2.00 02/12/17 20:00 83 02/12/17 16:00 98.1 82 18 113/56 (75) 98 I/O 02/12/17 02/12/17 02/12/17 02/13/17 02/13/17 02/13/17 07:00 15:00 23:00 07:00 15:00 23:00 Intake Total 290 ml 240 ml Output Total 272 ml Balance 290 ml 240 ml -272 ml Intake Oral 240 ml 240 ml IV Total 50 ml Output Peritoneal Fluid 272 ml # Voids 0 0 # Bowel Movements 0 0 (Steve Gilbert MD, R2) Result Diagram: 02/13/17 0537 02/13/17 0537 Imaging Last Impressions Chest X-Ray 02/13/17 0000 Signed Impressions: Service Date/Time: Monday, February 13, 2017 09:42 - CONCLUSION: Minimal parenchymal changes left base Inflammatory process can't be entirely excluded. Kian Adkins MD FACR Objective Remarks GENERAL: Resting in bed, NAD. coughing SKIN: Warm and dry. CARDIOVASCULAR: Regular rate and rhythm. RESPIRATORY: Coarse breath sounds. Decreased sounds at bases GASTROINTESTINAL: Abdomen soft, non-tender, nondistended. MUSCULOSKELETAL: Extremities with chronic hemosideric changes NEUROLOGICAL: Awake and alert. Slight right eyelid droop, no facial droop. Good strength. No focal neuro deficits. Normal strength bilaterally. Normal speech. PSYCHIATRIC: Appropriate mood and affect; insight and judgment normal. (Steve Gilbert MD, R2) A/P Assessment and Plan 81-year-old male with past history of renal failure on peritoneal dialysis who was sent to the ED for pneumonia. Chest x-ray in ED shows bibasilar patchiness consistent with atelectasis and or infiltrate. On labs CK 1503, CK-MB 23, troponin 1.04, BNP 3095. EKG without any definite ischemia as noted by ED physician. Currently without symptoms of myocardial infarction. Discharge Planning Pending treatment. Will need placement to SNF upon discharge (Steve Gilbert MD, R2) Problem List: (1) Pneumonia ICD Codes: J18.9 - Pneumonia Status: Acute Plan: Patient with bibasilar patchiness consistent with atelectasis and or infiltrate on admission. Qualifies for sepsis criteria see plan below -Zosyn 2.25 g every 12 -Azithromycin 500 mg daily -Supplemental O2 as needed -Sputum culture pending -legionella/pneumococcal urine ag pending (2) Troponin level elevated ICD Codes: R74.8 - Abnormal levels of other serum enzymes; N18.9 - Chronic kidney disease, unspecified Status: Acute Plan: Initial troponin level 0.95, historically 0.22 on 09/23/16. Currently without symptoms of myocardial infarction Troponins trended down -Consult cardiology, appreciate recommendations -Suspect NSTEMI secondary to pneumonia and lactic acidosis -Add aspirin to plavix -Add nitro paste, change to Imdur at discharge (3) Elevated brain natriuretic peptide (BNP) level ICD Codes: R79.89 - Other specified abnormal findings of blood chemistry Plan: Elevated BNP on admission of 3095. Historically 400 on 09/23/16 Improved to 1873 -EF 55-60% -Cardiology consulted, appreciate recommendations -Continue peritoneal dialysis -Furosemide 60 mg given once in ED (4) Sepsis ICD Codes: A41.9 - Sepsis, unspecified organism Status: Resolved Plan: Leukocytosis, respiration rate of 20. No tachycardia, afebrile on admission -See pneumonia for antibiotics -Lactic acid 2.5, trended down to 1.9 -No signs of severe sepsis at this time. -Follow up cultures (5) Elevated CK ICD Codes: R74.8 - Abnormal levels of other serum enzymes Plan: CK 1503 on admission. Reports multiple falls with multiple hours being down. Has renal failure. Continue to trend. Improved to 765 -Follow-up CK -Careful with fluids due to kidney status (6) FEN Plan: Fluids: Tolerating fluids by mouth Electrolytes: Monitor and replete as needed Nutrition: Nothing by mouth at this time (Steve Gilbert MD, R2) Problem List: (1) Pneumonia ICD Codes: J18.9 - Pneumonia Status: Acute Plan: Patient with bibasilar patchiness consistent with atelectasis and or infiltrate on admission. Qualifies for sepsis criteria see plan below -Zosyn 2.25 g every 12 -Azithromycin 500 mg daily -Supplemental O2 as needed -Sputum culture pending -legionella/pneumococcal urine ag pending (2) Troponin level elevated ICD Codes: R74.8 - Abnormal levels of other serum enzymes; N18.9 - Chronic kidney disease, unspecified Status: Acute Plan: Initial troponin level 0.95, historically 0.22 on 09/23/16. Currently without symptoms of myocardial infarction Troponins trended down -Consult cardiology, appreciate recommendations -Suspect NSTEMI secondary to pneumonia and lactic acidosis -Add aspirin to plavix -Add nitro paste, change to Imdur at discharge (3) Elevated brain natriuretic peptide (BNP) level ICD Codes: R79.89 - Other specified abnormal findings of blood chemistry Plan: Elevated BNP on admission of 3095. Historically 400 on 09/23/16 Improved to 1873 -EF 55-60% -Cardiology consulted, appreciate recommendations -Continue peritoneal dialysis -Furosemide 60 mg given once in ED (4) Sepsis ICD Codes: A41.9 - Sepsis, unspecified organism Status: Resolved Plan: Leukocytosis, respiration rate of 20. No tachycardia, afebrile on admission -See pneumonia for antibiotics -Lactic acid 2.5, trended down to 1.9 -No signs of severe sepsis at this time. -Follow up cultures (5) Elevated CK ICD Codes: R74.8 - Abnormal levels of other serum enzymes Plan: CK 1503 on admission. Reports multiple falls with multiple hours being down. Has renal failure. Continue to trend. Improved to 765 -Follow-up CK -Careful with fluids due to kidney status (6) FEN Plan: Fluids: Tolerating fluids by mouth Electrolytes: Monitor and replete as needed Nutrition: Nothing by mouth at this time See the residents documentation for details. I saw and evaluated the patient regarding the beck portions of this evaluation and agree with the residents findings and plans as written. Parts of this note were created using [employer] voice recognition software program. While efforts were made to correct any mistakes made by this software, some mistakes, errors, and omissions may remain in the final note that were not caught when the note was originally created. Plan of care was discussed and agreed upon with the patient as specifically documented in the above note. An opportunity to ask questions with explanation was provided. Patient voiced understanding on all information reviewed and discussed. (Sylvester Ayoub MD) Problem Qualifiers (1) Pneumonia: Qualified Codes: J18.9 - Pneumonia, unspecified organism Steve Gilbert MD, R2 Feb 13, 2017 15:05 Sylvester Ayoub MD Feb 14, 2017 10:11
--- NOTE | 2017-02-13 15:53 | HHI.NPPN ---
Subjective General Problems: Anemia Renal Failure: Chronic, End Stage Renal Disease Interval History remains hypoxic. PD carried out. Shortness of breath is complained. Review of Systems General Constitutional: Fatigue Respiratory Lungs: SOB, Cough Cardiovascular Cardiac: Edema Objective Data Data 02/13/17 02/14/17 19:00 07:00 Output Total 272 ml Balance -272 ml Output Peritoneal Fluid 272 ml Vital Signs Date Time Temp Pulse Resp B/P (MAP) Pulse Ox O2 Delivery O2 Flow Rate FiO2 02/13/17 12:00 73 02/13/17 12:00 98.1 70 20 95/53 (67) 92 02/13/17 11:09 94 Nasal Cannula 5.00 02/13/17 08:00 64 02/13/17 08:00 98.2 72 20 113/56 (75) 96 02/13/17 04:00 98.1 77 20 122/62 (82) 95 02/13/17 00:00 67 02/13/17 00:00 98.2 69 18 131/63 (85) 96 02/12/17 23:00 Nasal Cannula 3.00 02/12/17 21:14 93 Nasal Cannula 3.00 02/12/17 20:00 97.8 75 16 159/65 (96) 92 02/12/17 20:00 Nasal Cannula 2.00 02/12/17 20:00 83 02/12/17 16:00 98.1 82 18 113/56 (75) 98 -: 02/13/17 0537 02/13/17 0537 Tubes & Lines: Tenckhoff Catheter Physical Exam General Appearance: No Acute Distress, Comfortable Throat Throat Exam: Oral Mucosa [place] & Moist Pulmonary Resp Exam: Crackles, Rhonchi, Sputum, Decreased Bases Cardiology CV Exam: Regular, Normal Sinus Rhythm Gastrointestinal/Abdomen GI Exam: Soft, Non-Tender Musculoskeletal MS Exam: Joints Intact, Normal Tone Integumentary Skin Exam: Warm, Dry Extremeties Extremities Exam: Pedal Pulses Palpable, Trace Edema Neurologic Neuro Exam: Alert, Awake, Oriented, Speech Clear, Moving All Extremities Psychiatric Psych Exam: Appropriate Responses Assessment/Plan Discussed Condition With: Patient Assessment Summary: Anemia of CKD, End Stage Renal Disease Electrolyte Assessment: Hypokalemia Problem List: (1) ESRD (end stage renal disease) on dialysis ICD Codes: N18.6 - End stage renal disease; Z99.2 - Dependence on renal dialysis Plan: Continue nightly PD, he is on 4 cycles, 9 hrs, 2500 ml; no last fill Continue 2.5% dextrose PD solution. Add daily potassium supplement. Avoid IVF administration Phosphorus is acceptable. (2) Pneumonia ICD Codes: J18.9 - Pneumonia Status: Acute Plan: Given Levaquin, ordered Zosyn, Zithromax. Leukocytosis has improved. Oxygen as needed May need Respiratory therapy He has leukocytosis, rule out sepsis, lactic acid is normal Monitor clinically (3) Troponin level elevated ICD Codes: R74.8 - Abnormal levels of other serum enzymes; N18.9 - Chronic kidney disease, unspecified Status: Acute Plan: Cardiology evaluated, suffered Type II NSTEMI due to pneumonia. Medications added: nitrate, plavix, ASA No plan for revascularization at this time (4) Anemia ICD Codes: D64.9 - Anemia, unspecified Status: Acute Plan: He received 18K Epogen last week, Consider additional dose. Check iron profile. Problem Qualifiers (1) Pneumonia: Qualified Codes: J18.9 - Pneumonia, unspecified organism Gabriel Salcedo MD Feb 13, 2017 15:53
[2017-02-13] MEDS: POTASSIUM CHLORIDE 20 MEQ CONTROLLED RELEASE TAB PO SCH (16:43)
[2017-02-13] MEDS: AZITHROMYCIN 250 MG TAB PO SCH (21:48)
[2017-02-13] MEDS: TAMSULOSIN HCL 0.4 MG CAP PO SCH (21:48)
[2017-02-13] MEDS: LATANOPROST 0.005% OPHT SOLN 2.5 ML BTL EACH EYE SCH (22:11)
[2017-02-13] MEDS: guaiFENesin/CODEINE SYRUP 200 MG/20 MG/10 ML CUP PO PRN (23:07)
--- NOTE | 2017-02-13 23:30 | EKG ---
Date Performed: 02/11/2017 Time Performed: 21:54:51 PTAGE: 81 years EKG: Sinus rhythm PROBABLE INFERIOR MYOCARDIAL INFARCTION , PROBABLY OLD ABNORMAL ECG PREVIOUS TRACING : 02/11/2017 13.19 DOCTOR: Curry Brennan Interpretating Date/Time 02/13/2017 23:29:10
--- NOTE | 2017-02-13 23:57 | EKG ---
Date Performed: 02/11/2017 Time Performed: 13:19:38 PTAGE: 81 years EKG: SUPRAVENTRICULAR RHYTHM NONSPECIFIC ST & T-WAVE ABNORMALITY ABNORMAL ECG PREVIOUS TRACING : 09/23/2016 21.42 DOCTOR: Curry Brennan Interpretating Date/Time 02/13/2017 23:55:55
[2017-02-14] VITALS (9 sets, daily range): BP systolic 104–153; BP diastolic 53–96; PULSE 62–106; RESP 18–21; TEMP 98–98.3; O2SAT 90–100
[2017-02-14] MEDS: RESP: ALBUTEROL 2.5 MG/3 ML NEB (PRN) NEB (00:57)
[2017-02-14] MEDS: BENZONATATE 100 MG CAP PO PRN ×3 (01:11→23:32)
[2017-02-14] MEDS: RESP: ALBUTEROL 2.5 MG/IPRATROPIUM 0.5 MG NEB (SCH) INH ×4 (04:54→20:10)
[2017-02-14] MEDS: guaiFENesin/CODEINE SYRUP 200 MG/20 MG/10 ML CUP PO PRN ×3 (05:15→17:29)
[2017-02-14] MEDS: HEPARIN SODIUM - SQ 10,000 UNITS/ML VIAL SQ SCH ×2 (05:17→17:27)
[2017-02-14] MEDS: NITROGLYCERIN 2% OINT 1 GM PACKET TOPICAL SCH ×3 (05:17→20:42)
[2017-02-14] MEDS: PRAVASTATIN SOD 40 MG TAB PO SCH (08:48)
[2017-02-14] MEDS: CALCITRIOL 0.25 MCG CAP PO SCH (08:48)
[2017-02-14] MEDS: VERAPAMIL HCL 120 MG TAB PO SCH ×2 (08:48→20:47)
[2017-02-14] MEDS: ASPIRIN EC 81 MG TABEC PO SCH (08:48)
[2017-02-14] MEDS: CLOPIDOGREL 75 MG TAB PO SCH (08:49)
[2017-02-14] MEDS: POTASSIUM CHLORIDE 20 MEQ CONTROLLED RELEASE TAB PO SCH (08:49)
[2017-02-14] MEDS: SODIUM CHLORIDE 0.9% FLUSH 10 ML FLUSH IV FLUSH SCH ×2 (08:50→20:41)
[2017-02-14] MEDS: PIPERACIL-TAZO 2.25 GM PREMIX 50 ML IV SCH ×2 (08:50→20:41)
[2017-02-14 10:54] LABS: AUTOMATED NEUTROPHIL # 11.1 TH/MM3 (1.8-7.7); BASOPHIL % 0.3 % (0.0-2.0); EOSINOPHIL # 0.2 TH/MM3 (0-0.4); EOSINOPHIL % 1.7 % (0.0-4.0); HEMATOCRIT 22.6 % (39.0-51.0); HEMOGLOBIN 7.6 GM/DL (13.0-17.0); LYMPH % 6.2 % (9.0-44.0); LYMPHOCYTE # 0.8 TH/MM3 (1.0-4.8); MEAN CELL VOLUME 93.9 FL (80.0-100.0); MEAN CORPUSCULAR HEMOGLOBIN 31.6 PG (27.0-34.0); MEAN CORPUSCULAR HGB CONC 33.6 % (32.0-36.0); MEAN PLATELET VOLUME 8.6 FL (7.0-11.0); MONO % 6.4 % (0.0-8.0); MONOCYTE # 0.8 TH/MM3 (0-0.9); NEUT % 85.4 % (16.0-70.0); PLATELET COUNT 103 TH/MM3 (150-450); RED BLOOD COUNT 2.41 MIL/MM3 (4.50-5.90); RED CELL DISTRIBUTION WIDTH 17.4 % (11.6-17.2)
--- NOTE | 2017-02-14 11:05 | MB ---
cc: EMMANUEL OSHEA MD DATE OF CONSULTATION: 02/13/17 REASON FOR CONSULTATION Pneumonia. HISTORY OF PRESENT ILLNESS The patient is a 81-year-old gentleman who is known to have a history of end-stage renal disease on dialysis came in to the hospital because he was having shortness of breath. The patient is being treated for possible pneumonia. The patient continues to feel the same, he did not improve much. He is still having cough but the cough is minimal, nonproductive, but it is very irritating to the patient. He denies any chest pain, no fever or chills. PAST MEDICAL HISTORY His past medical history was reviewed in detail. Positive for a history of - 1. Renal failure. 2. Hypertension. 3. History of COPD. SOCIAL HISTORY No history of drug use or any smoking. He drinks alcohol socially. FAMILY HISTORY Positive for NE in his 50s in his father, and his mother passed during childbirth. PHYSICAL EXAMINATION VITAL SIGNS: Temperature 97.7, pulse 71, respiratory rate 20, blood pressure 160/65, he is sating 96% on 6 liters nasal cannula. GENERAL: He is in no acute distress but he looks chronically ill. HEENT: Head atraumatic, normocephalic. NECK: Trachea midline. LUNGS: Decreased breath sounds and crackles over the left lower lobe. Right lung clear. HEART: S1, S2. ABDOMEN: Soft. EXTREMITIES: No significant edema. He does have evidence of chronic stasis dermatitis and dry skin. NEUROLOGIC: Alert and oriented. Moves all extremities. Follows commands. LABORATORY DATA Labs were reviewed. His WBC count is has decreased from 17 thousand down to 9. IMAGING Chest x-ray reviewed. It is suggestive of a pulmonary infiltrate more on the left side with possible small effusion versus atelectasis. ASSESSMENT AND PLAN 1. Pneumonia. 2. COPD. 3. End-stage renal disease on dialysis. I believe the patient is better especially based on the improvement in his leukocytosis. I would like to continue the current antibiotics. I will order Anitra MAYO for the symptomatic sputum of his cough. I will be back to check on him tomorrow. If he does not start feeling better, I may get a CT chest so that I can assess the left lower lobe. Continue the same current antibiotics and I will continue to follow the case with you. Thank you for this consultation. MD AMY Lugo /9:47 PM /10:14 AM
--- NOTE | 2017-02-14 11:15 | HHI.FPPN ---
Subjective Remarks Patient seen and examined this morning. Reports that he is feeling somewhat better, however is voice is more hoarse today. Cough has improved, shortness of breath is about the same or slightly improved. Reports a slightly decreased appetite however he still is hungry and is eating food. States he has a right eye twitch, however this has been present for the past 2 years when his "myasthenia gravis was cured." No nausea, vomiting, fever, chills, abdominal pain, chest pain. No other complaints today. Objective Vitals Vital Signs Date Time Temp Pulse Resp B/P (MAP) Pulse Ox O2 Delivery O2 Flow Rate FiO2 02/14/17 09:19 96 Nasal Cannula 6.00 02/14/17 08:09 98.0 72 18 136/63 (87) 98 02/14/17 04:00 98.2 106 21 117/96 (103) 90 02/14/17 00:00 98.0 84 20 153/81 (105) 92 02/13/17 21:01 92 Nasal Cannula 6.00 02/13/17 20:00 Nasal Cannula 3.00 02/13/17 20:00 97.6 85 21 136/83 (100) 90 02/13/17 20:00 94 02/13/17 16:00 97.7 71 20 153/65 (94) 94 02/13/17 16:00 63 02/13/17 12:00 73 02/13/17 12:00 98.1 70 20 95/53 (67) 92 I/O 02/13/17 02/13/17 02/13/17 02/14/17 02/14/17 02/14/17 07:00 15:00 23:00 07:00 15:00 23:00 Intake Total 240 ml 120 ml 100 ml Output Total 272 ml 1440 ml Balance 240 ml -272 ml 120 ml 100 ml -1440 ml Intake Oral 240 ml 120 ml 100 ml Output Peritoneal Fluid 272 ml 1440 ml # Voids 0 0 1 # Bowel Movements 0 0 1 Result Diagram: 02/14/17 0933 02/13/17 0537 Objective Remarks GENERAL: Resting in bed, NAD. coughing SKIN: Warm and dry. CARDIOVASCULAR: Regular rate and rhythm. RESPIRATORY: Coarse breath sounds. Decreased sounds at bases GASTROINTESTINAL: Abdomen soft, non-tender, nondistended. MUSCULOSKELETAL: Extremities with chronic hemosideric changes NEUROLOGICAL: Awake and alert. Slight right eyelid droop, no facial droop. Good strength. No focal neuro deficits. Normal strength bilaterally. Normal speech. PSYCHIATRIC: Appropriate mood and affect; insight and judgment normal. A/P Assessment and Plan 81-year-old male with past history of renal failure on peritoneal dialysis who was sent to the ED for pneumonia. Chest x-ray in ED shows bibasilar patchiness consistent with atelectasis and or infiltrate. On labs CK 1503, CK-MB 23, troponin 1.04, BNP 3095. EKG without any definite ischemia as noted by ED physician. Currently without symptoms of myocardial infarction. Discharge Planning Pending treatment. Will need placement to SNF upon discharge Problem List: (1) Pneumonia ICD Codes: J18.9 - Pneumonia Status: Acute Plan: Patient with bibasilar patchiness consistent with atelectasis and or infiltrate on admission. Mildly improved Qualifies for sepsis criteria see plan below -Zosyn 2.25 g every 12 -Azithromycin 500 mg daily -Supplemental O2 as needed -Sputum culture pending -legionella/pneumococcal urine ag pending (2) Troponin level elevated ICD Codes: R74.8 - Abnormal levels of other serum enzymes; N18.9 - Chronic kidney disease, unspecified Status: Acute Plan: Initial troponin level 0.95, historically 0.22 on 09/23/16. Currently without symptoms of myocardial infarction Troponins trended down -Consult cardiology, appreciate recommendations -Suspect NSTEMI secondary to pneumonia and lactic acidosis -Add aspirin to plavix -Add nitro paste, change to Imdur at discharge (3) Elevated brain natriuretic peptide (BNP) level ICD Codes: R79.89 - Other specified abnormal findings of blood chemistry Plan: Elevated BNP on admission of 3095. Historically 400 on 09/23/16 Improved to 1873 -EF 55-60% -Cardiology consulted, appreciate recommendations -Continue peritoneal dialysis -Furosemide 60 mg given once in ED (4) Sepsis ICD Codes: A41.9 - Sepsis, unspecified organism Status: Resolved Plan: Leukocytosis, respiration rate of 20. No tachycardia, afebrile on admission -See pneumonia for antibiotics -Lactic acid 2.5, trended down to 1.9 -No signs of severe sepsis at this time. -Follow up cultures (5) Elevated CK ICD Codes: R74.8 - Abnormal levels of other serum enzymes Plan: CK 1503 on admission. Reports multiple falls with multiple hours being down. Has renal failure. Continue to trend. Improved to 765 -Follow-up CK -Careful with fluids due to kidney status (6) FEN Plan: Fluids: Tolerating fluids by mouth Electrolytes: Monitor and replete as needed Nutrition: Nothing by mouth at this time See the residents documentation for details. I saw and evaluated the patient regarding the beck portions of this evaluation and agree with the residents findings and plans as written. Parts of this note were created using [employer] voice recognition software program. While efforts were made to correct any mistakes made by this software, some mistakes, errors, and omissions may remain in the final note that were not caught when the note was originally created. Plan of care was discussed and agreed upon with the patient as specifically documented in the above note. An opportunity to ask questions with explanation was provided. Patient voiced understanding on all information reviewed and discussed. Problem Qualifiers (1) Pneumonia: Qualified Codes: J18.9 - Pneumonia, unspecified organism Miller Lopez MD R1 Feb 14, 2017 11:15
[2017-02-14 11:19] LABS: RANDOM VANCOMYCIN 23.2 COMMENT
[2017-02-14 11:22] LABS: BICARBONATE 30.5 MEQ/L (21.0-32.0); CALCIUM 8.7 MG/DL (8.5-10.1); CREATININE 8.51 MG/DL (0.60-1.30)
--- NOTE | 2017-02-14 16:30 | HHI.NPPN ---
Subjective General Problems: Anemia Renal Failure: Chronic, End Stage Renal Disease Review of Systems General Constitutional: Fatigue Respiratory Lungs: SOB, Cough Cardiovascular Cardiac: Edema Objective Data Data 02/14/17 02/15/17 19:00 07:00 Intake Total 50 ml Output Total 1440 ml Balance -1390 ml IV Total 50 ml Output Peritoneal Fluid 1440 ml Vital Signs Date Time Temp Pulse Resp B/P (MAP) Pulse Ox O2 Delivery O2 Flow Rate FiO2 02/14/17 16:03 5.00 02/14/17 12:37 98.2 69 18 104/53 (70) 97 02/14/17 09:19 96 Nasal Cannula 6.00 02/14/17 08:09 98.0 72 18 136/63 (87) 98 02/14/17 08:00 78 02/14/17 08:00 96 Nasal Cannula 3.00 02/14/17 04:00 98.2 106 21 117/96 (103) 90 02/14/17 00:00 98.0 84 20 153/81 (105) 92 02/13/17 21:01 92 Nasal Cannula 6.00 02/13/17 20:00 Nasal Cannula 3.00 02/13/17 20:00 97.6 85 21 136/83 (100) 90 02/13/17 20:00 94 -: 02/14/17 0933 02/14/17 0933 Tubes & Lines: Tenckhoff Catheter Physical Exam General Appearance: No Acute Distress, Comfortable Throat Throat Exam: Oral Mucosa [place] & Moist Pulmonary Resp Exam: Crackles, Rhonchi, Sputum, Decreased Bases Cardiology CV Exam: Regular, Normal Sinus Rhythm Gastrointestinal/Abdomen GI Exam: Soft, Non-Tender Musculoskeletal MS Exam: Joints Intact, Normal Tone Integumentary Skin Exam: Warm, Dry Extremeties Extremities Exam: Pedal Pulses Palpable, Trace Edema Neurologic Neuro Exam: Alert, Awake, Oriented, Speech Clear, Moving All Extremities Psychiatric Psych Exam: Appropriate Responses Assessment/Plan Discussed Condition With: Patient Assessment Summary: Anemia of CKD, End Stage Renal Disease Electrolyte Assessment: Hypokalemia Problem List: (1) ESRD (end stage renal disease) on dialysis ICD Codes: N18.6 - End stage renal disease; Z99.2 - Dependence on renal dialysis Plan: Continue nightly PD, he is on 4 cycles, 9 hrs, 2500 ml; no last fill Continue 2.5% dextrose PD solution.UF 1440 continue supportive care for now (2) Pneumonia ICD Codes: J18.9 - Pneumonia Status: Acute Plan: Given Levaquin, ordered Zosyn, Zithromax. Leukocytosis has improved. Oxygen as needed May need Respiratory therapy He has leukocytosis, rule out sepsis, lactic acid is normal Monitor clinically (3) Troponin level elevated ICD Codes: R74.8 - Abnormal levels of other serum enzymes; N18.9 - Chronic kidney disease, unspecified Status: Acute Plan: Cardiology evaluated, suffered Type II NSTEMI due to pneumonia. Medications added: nitrate, plavix, ASA No plan for revascularization at this time (4) Anemia ICD Codes: D64.9 - Anemia, unspecified Status: Acute Plan: He received 18K Epogen last week, Consider additional dose. Check iron profile. Problem Qualifiers (1) Pneumonia: Qualified Codes: J18.9 - Pneumonia, unspecified organism Samuel Teran MD Feb 14, 2017 16:30
--- NOTE | 2017-02-14 16:34 | HHI.PR ---
Subjective Remarks still same lot of coughing that has been chronic according to Objective Vital Signs Date Time Temp Pulse Resp B/P (MAP) Pulse Ox O2 Delivery O2 Flow Rate FiO2 02/14/17 16:03 5.00 02/14/17 12:37 98.2 69 18 104/53 (70) 97 02/14/17 09:19 96 Nasal Cannula 6.00 02/14/17 08:09 98.0 72 18 136/63 (87) 98 02/14/17 08:00 78 02/14/17 08:00 96 Nasal Cannula 3.00 02/14/17 04:00 98.2 106 21 117/96 (103) 90 02/14/17 00:00 98.0 84 20 153/81 (105) 92 02/13/17 21:01 92 Nasal Cannula 6.00 02/13/17 20:00 Nasal Cannula 3.00 02/13/17 20:00 97.6 85 21 136/83 (100) 90 02/13/17 20:00 94 I/O 02/13/17 02/13/17 02/13/17 02/14/17 02/14/17 02/14/17 07:00 15:00 23:00 07:00 15:00 23:00 Intake Total 240 ml 120 ml 100 ml 50 ml Output Total 272 ml 1440 ml Balance 240 ml -272 ml 120 ml 100 ml -1390 ml Intake Oral 240 ml 120 ml 100 ml IV Total 50 ml Output Peritoneal Fluid 272 ml 1440 ml # Voids 0 0 1 # Bowel Movements 0 0 1 ga: nad lungs: dec bs over lll heart: s1, s2 abd : soft , nt neuro: no chnage Result Diagram: 02/14/1733 02/14/1733 Assessment and Plan Assessment and Plan PNA Cough LLL collapse I decided to order CT chest without contrast cont current abx cont antitussives will cont to folow.. Anibal Adams MD Feb 14, 2017 16:34
--- NOTE | 2017-02-14 16:36 | RADRPT ---
EXAM DATE/TIME: 02/14/2017 14:28 [facility] COMPARISON: CHEST PA & LAT, February 13, 2017, 9:42. INDICATIONS : Shortness of breath. MEDICAL HISTORY : History of hyperparathyroidism, HTN, HLD, anemia, pneumonia. SURGICAL HISTORY : Tonsillectomy. ENCOUNTER: Subsequent ACUITY: 3 days PAIN SCORE: 0/10 LOCATION: Bilateral chest FINDINGS: The cardiac silhouette is enlarged in transverse diameter. There is left lower lobe atelectasis versu s pneumonia. The right lung is free of acute parenchymal opacity. No pleural effusions are identified . CONCLUSION: 1. Left lower lobe atelectasis versus pneumonia. There has been no significant change when compared t o the prior exam. Stephen Bello MD on February 14, 2017 at 16:33 Board Certified Radiologist. This report was verified electronically.
[2017-02-14] MEDS: TAMSULOSIN HCL 0.4 MG CAP PO SCH (20:41)
[2017-02-14] MEDS: AZITHROMYCIN 250 MG TAB PO SCH (20:41)
[2017-02-14] MEDS: LATANOPROST 0.005% OPHT SOLN 2.5 ML BTL EACH EYE SCH (20:42)
[2017-02-15] VITALS (11 sets, daily range): BP systolic 102–133; BP diastolic 53–64; PULSE 61–79; RESP 18–20; TEMP 97.4–98.8; O2SAT 97–100
[2017-02-15] MEDS: RESP: ALBUTEROL 2.5 MG/IPRATROPIUM 0.5 MG NEB (SCH) INH ×3 (04:53→16:48)
[2017-02-15] MEDS: NITROGLYCERIN 2% OINT 1 GM PACKET TOPICAL SCH ×3 (05:16→21:02)
[2017-02-15] MEDS: HEPARIN SODIUM - SQ 10,000 UNITS/ML VIAL SQ SCH ×2 (05:16→17:15)
[2017-02-15] MEDS: PIPERACIL-TAZO 2.25 GM PREMIX 50 ML IV SCH ×2 (08:48→21:02)
[2017-02-15] MEDS: SODIUM CHLORIDE 0.9% FLUSH 10 ML FLUSH IV FLUSH SCH ×2 (08:49→21:03)
[2017-02-15] MEDS: ASPIRIN EC 81 MG TABEC PO SCH (08:49)
[2017-02-15] MEDS: POTASSIUM CHLORIDE 20 MEQ CONTROLLED RELEASE TAB PO SCH (08:50)
[2017-02-15] MEDS: VERAPAMIL HCL 120 MG TAB PO SCH ×2 (08:50→21:02)
[2017-02-15] MEDS: CLOPIDOGREL 75 MG TAB PO SCH (08:51)
[2017-02-15] MEDS: CALCITRIOL 0.25 MCG CAP PO SCH (08:51)
[2017-02-15] MEDS: PRAVASTATIN SOD 40 MG TAB PO SCH (08:51)
[2017-02-15 09:34] LABS: HEMATOCRIT 23.5 % (39.0-51.0); HEMOGLOBIN 7.8 GM/DL (13.0-17.0); MEAN CELL VOLUME 94.6 FL (80.0-100.0); MEAN CORPUSCULAR HEMOGLOBIN 31.3 PG (27.0-34.0); MEAN CORPUSCULAR HGB CONC 33.1 % (32.0-36.0); MEAN PLATELET VOLUME 8.4 FL (7.0-11.0); PLATELET COUNT 127 TH/MM3 (150-450); RED BLOOD COUNT 2.49 MIL/MM3 (4.50-5.90); RED CELL DISTRIBUTION WIDTH 17.5 % (11.6-17.2)
[2017-02-15 10:10] LABS: BICARBONATE 28.3 MEQ/L (21.0-32.0); CALCIUM 8.7 MG/DL (8.5-10.1); CREATININE 8.53 MG/DL (0.60-1.30)
[2017-02-15 10:12] LABS: RANDOM VANCOMYCIN 18.9 COMMENT
--- NOTE | 2017-02-15 10:14 | HHI.FPPN ---
Subjective Remarks Patient seen and examined at bedside this morning.No acute events overnight. at bedside. Pt states that his breathing has not improved much since admission. Pt endorses dry cough without being able to bring any phlegm. Denies CP. reports patient has not been eating much because he states the food does not taste right to him. Objective Vitals Vital Signs Date Time Temp Pulse Resp B/P (MAP) Pulse Ox O2 Delivery O2 Flow Rate FiO2 02/15/17 08:09 98.1 72 20 121/60 (80) 97 02/15/17 04:00 61 02/15/17 04:00 97.9 71 18 111/59 (76) 100 02/15/17 00:00 97.7 73 18 127/64 (85) 97 02/15/17 00:00 77 02/14/17 20:11 97 Nasal Cannula 4.00 02/14/17 20:00 98.2 73 18 143/61 (88) 100 02/14/17 20:00 62 02/14/17 16:09 98.3 70 18 131/60 (83) 97 02/14/17 16:03 5.00 02/14/17 12:37 98.2 69 18 104/53 (70) 97 I/O 02/14/17 02/14/17 02/14/17 02/15/17 02/15/17 02/15/17 07:00 15:00 23:00 07:00 15:00 23:00 Intake Total 100 ml 50 ml 480 ml 480 ml Output Total 1440 ml 0 ml Balance 100 ml -1390 ml 480 ml 480 ml 0 ml Intake Oral 100 ml 480 ml 480 ml IV Total 50 ml Output Peritoneal Fluid 1440 ml 0 ml # Voids 1 2 0 # Bowel Movements 1 2 0 Result Diagram: 02/15/17 0830 02/15/17 0830 Objective Remarks GENERAL: Resting in bed, NAD. coughing SKIN: Warm and dry. CARDIOVASCULAR: Regular rate and rhythm. RESPIRATORY: Coarse breath sounds. Decreased sounds at bases GASTROINTESTINAL: Abdomen soft, non-tender, nondistended. MUSCULOSKELETAL: Extremities with chronic hemosideric changes NEUROLOGICAL: Awake and alert. Slight right eyelid droop, no facial droop. Good strength. No focal neuro deficits. Normal strength bilaterally. Normal speech. PSYCHIATRIC: Appropriate mood and affect; insight and judgment normal. A/P Assessment and Plan 81-year-old male with past history of renal failure on peritoneal dialysis who was sent to the ED for pneumonia. Chest x-ray in ED shows bibasilar patchiness consistent with atelectasis and or infiltrate. On labs CK 1503, CK-MB 23, troponin 1.04, BNP 3095. EKG without any definite ischemia as noted by ED physician. Currently without symptoms of myocardial infarction. Discharge Planning Will need placement to SNF upon discharge Problem List: (1) Pneumonia ICD Codes: J18.9 - Pneumonia Status: Acute Plan: Patient with bibasilar patchiness consistent with atelectasis and or infiltrate on admission. Mildly improved Qualifies for sepsis criteria see plan below -Zosyn 2.25 g every 12 -Azithromycin 500 mg daily -Supplemental O2 as needed -f/u Sputum culture -f/u legionella/pneumococcal urine ag -will f/u CT thorax ordered by (2) Troponin level elevated ICD Codes: R74.8 - Abnormal levels of other serum enzymes; N18.9 - Chronic kidney disease, unspecified Status: Acute Plan: Initial troponin level 0.95, historically 0.22 on 09/23/16. Currently without symptoms of myocardial infarction Troponins trended down -Consult cardiology, appreciate recommendations -Suspect NSTEMI secondary to pneumonia and lactic acidosis -Add aspirin to plavix -Add nitro paste, change to Imdur at discharge (3) Elevated brain natriuretic peptide (BNP) level ICD Codes: R79.89 - Other specified abnormal findings of blood chemistry Plan: Elevated BNP on admission of 3095. Historically 400 on 09/23/16 Improved to 1873 -EF 55-60% -Cardiology consulted, appreciate recommendations -Continue peritoneal dialysis -Furosemide 60 mg given once in ED (4) Elevated CK ICD Codes: R74.8 - Abnormal levels of other serum enzymes Plan: CK 1503 on admission. Reports multiple falls with multiple hours being down. Has renal failure. Continue to trend. Improved to 271, WNL -Careful with fluids due to kidney status (5) FEN Plan: Fluids:Tolerating fluids by mouth Electrolytes: WNL, c/w peritoneal HD Monitor and replete as needed Nutrition: renal diet, will add Megace to medication to help stimulate pt's appetite See the residents documentation for details. I saw and evaluated the patient regarding the beck portions of this evaluation and agree with the residents findings and plans as written. Parts of this note were created using [employer] voice recognition software program. While efforts were made to correct any mistakes made by this software, some mistakes, errors, and omissions may remain in the final note that were not caught when the note was originally created. Plan of care was discussed and agreed upon with the patient as specifically documented in the above note. An opportunity to ask questions with explanation was provided. Patient voiced understanding on all information reviewed and discussed. Problem Qualifiers (1) Pneumonia: Qualified Codes: J18.9 - Pneumonia, unspecified organism Roslyn Blankenship MD, R1 Feb 15, 2017 10:14
[2017-02-15] MEDS ORDERED: MEGESTROL ACETATE SUSP 400 MG/10 ML CUP PO ONE (11:00)
[2017-02-15] MEDS ORDERED: VANCOMYCIN 1,000 MG/NS 250 ML IV SCH ×2 (11:00)
[2017-02-15] MEDS ORDERED: VANCOMYCIN 1,000 MG/NS 250 ML IV ONE ×2 (12:00)
--- NOTE | 2017-02-15 13:17 | RADRPT ---
EXAM DATE/TIME: 02/15/2017 10:58 [facility] COMPARISON: No previous studies available for comparison. INDICATIONS : Lower lobe airspace disease or atelecatasis. RADIATION DOSE: 9.59 CTDIvol (mGy) MEDICAL HISTORY : Cardiovascular disease. Hypertension. SURGICAL HISTORY : None. ENCOUNTER: Initial ACUITY: 1 day PAIN SCALE: 0/10 LOCATION: chest TECHNIQUE: Volumetric scanning of the chest was performed. Using automated exposure control and adjustment of t he mA and/or kV according to patient size, radiation dose was kept as low as reasonably achievable to obtain optimal diagnostic quality images. DICOM format image data is available electronically for r eview and comparison. Follow-up recommendations for detected pulmonary nodules are based at a minimum on nodule size and pa tient risk factors according to Fleischner Society Guidelines. FINDINGS: There is bilateral lower lobe atelectasis versus pneumonia left greater than right. No pulmonary nod ules are identified. Examination of the mediastinum demonstrates no abnormally enlarged lymph nodes by CT criteria. No axi llary or hilar abnormalities are identified. Coronary artery calcifications are present. Ascites is p resent in the upper abdomen. CONCLUSION: 1. Bilateral lower lobe atelectasis versus pneumonia. 2. Ascites Stephen Bello MD on February 15, 2017 at 13:13 Board Certified Radiologist. This report was verified electronically.
--- NOTE | 2017-02-15 14:23 | HHI.NPPN ---
Subjective General Problems: Anemia Renal Failure: Chronic, End Stage Renal Disease Review of Systems General Constitutional: Fatigue Respiratory Lungs: SOB, Cough Cardiovascular Cardiac: Edema Objective Data Data 02/15/17 02/16/17 19:00 07:00 Output Total 0 ml Balance 0 ml Output Peritoneal Fluid 0 ml Vital Signs Date Time Temp Pulse Resp B/P (MAP) Pulse Ox O2 Delivery O2 Flow Rate FiO2 02/15/17 12:09 98.2 70 20 102/53 (69) 97 02/15/17 08:09 98.1 72 20 121/60 (80) 97 02/15/17 04:00 61 02/15/17 04:00 97.9 71 18 111/59 (76) 100 02/15/17 00:00 97.7 73 18 127/64 (85) 97 02/15/17 00:00 77 02/14/17 20:11 97 Nasal Cannula 4.00 02/14/17 20:00 98.2 73 18 143/61 (88) 100 02/14/17 20:00 62 02/14/17 16:09 98.3 70 18 131/60 (83) 97 02/14/17 16:03 5.00 -: 02/15/17 0830 02/15/17 0830 Tubes & Lines: Tenckhoff Catheter Physical Exam General Appearance: No Acute Distress, Comfortable Throat Throat Exam: Oral Mucosa [place] & Moist Pulmonary Resp Exam: Crackles, Rhonchi, Sputum, Decreased Bases Cardiology CV Exam: Regular, Normal Sinus Rhythm Gastrointestinal/Abdomen GI Exam: Soft, Non-Tender Musculoskeletal MS Exam: Joints Intact, Normal Tone Integumentary Skin Exam: Warm, Dry Extremeties Extremities Exam: Pedal Pulses Palpable, Trace Edema Neurologic Neuro Exam: Alert, Awake, Oriented, Speech Clear, Moving All Extremities Psychiatric Psych Exam: Appropriate Responses Assessment/Plan Discussed Condition With: Patient Assessment Summary: Anemia of CKD, End Stage Renal Disease Electrolyte Assessment: Hypokalemia Problem List: (1) ESRD (end stage renal disease) on dialysis ICD Codes: N18.6 - End stage renal disease; Z99.2 - Dependence on renal dialysis Plan: Continue nightly PD, he is on 4 cycles, 9 hrs, 2500 ml; no last fill Continue 2.5% dextrose PD solution.UF -350 continue supportive care for now change to regular diet as not eating Dr. Hoskote follow (2) Pneumonia ICD Codes: J18.9 - Pneumonia Status: Acute Plan: Given Levaquin, ordered Zosyn, Zithromax. Leukocytosis has improved. Oxygen as needed May need Respiratory therapy He has leukocytosis, rule out sepsis, lactic acid is normal Monitor clinically (3) Troponin level elevated ICD Codes: R74.8 - Abnormal levels of other serum enzymes; N18.9 - Chronic kidney disease, unspecified Status: Acute Plan: Cardiology evaluated, suffered Type II NSTEMI due to pneumonia. Medications added: nitrate, plavix, ASA No plan for revascularization at this time (4) Anemia ICD Codes: D64.9 - Anemia, unspecified Status: Acute Plan: He received 18K Epogen last week, Consider additional dose. Check iron profile. Problem Qualifiers (1) Pneumonia: Qualified Codes: J18.9 - Pneumonia, unspecified organism Samuel Teran MD Feb 15, 2017 14:23
--- NOTE | 2017-02-15 16:42 | HHI.PR ---
Subjective Remarks better less coughing no hemoptysis PHYSICAL EXAMINATION: HEAD AND NECK: Normocephalic and atraumatic. BiPAP on. Trachea is midline. LUNGS: Decreased breath sounds bilaterally more on left HEART: Normal S1 and S2. ABDOMEN: Soft. It is not tender. EXTREMITIES: No significant edema or cyanosis. NEUROLOGIC: The patient is alert. He moves all extremities. Objective Vital Signs Date Time Temp Pulse Resp B/P (MAP) Pulse Ox O2 Delivery O2 Flow Rate FiO2 02/15/17 15:45 4.00 02/15/17 15:28 97 Nasal Cannula 3.00 02/15/17 12:09 98.2 70 20 102/53 (69) 97 02/15/17 12:00 63 02/15/17 08:09 98.1 72 20 121/60 (80) 97 02/15/17 08:00 63 02/15/17 04:00 61 02/15/17 04:00 97.9 71 18 111/59 (76) 100 02/15/17 00:00 97.7 73 18 127/64 (85) 97 02/15/17 00:00 77 02/14/17 20:11 97 Nasal Cannula 4.00 02/14/17 20:00 98.2 73 18 143/61 (88) 100 02/14/17 20:00 62 I/O 02/14/17 02/14/17 02/14/17 02/15/17 02/15/17 02/15/17 07:00 15:00 23:00 07:00 15:00 23:00 Intake Total 100 ml 50 ml 480 ml 480 ml Output Total 1440 ml 0 ml Balance 100 ml -1390 ml 480 ml 480 ml 0 ml Intake Oral 100 ml 480 ml 480 ml IV Total 50 ml Output Peritoneal Fluid 1440 ml 0 ml # Voids 1 2 0 # Bowel Movements 1 2 0 Result Diagram: 02/15/17 0830 02/15/17 0830 Assessment and Plan Assessment and Plan PNA Cough LLL collapse he is better Ct did not show any sig findings cont current abx cont antitussives will cont to follow Anibal Adams MD Feb 15, 2017 16:42
[2017-02-15] MEDS: AZITHROMYCIN 250 MG TAB PO SCH (21:02)
[2017-02-15] MEDS: TAMSULOSIN HCL 0.4 MG CAP PO SCH (21:02)
[2017-02-15] MEDS: LATANOPROST 0.005% OPHT SOLN 2.5 ML BTL EACH EYE SCH (21:03)
[2017-02-15] MEDS: BENZONATATE 100 MG CAP PO PRN (23:15)
[2017-02-15] MEDS: RESP: ALBUTEROL 2.5 MG/3 ML NEB (PRN) NEB (23:54)
[2017-02-16] VITALS: BP 115/57; PULSE 68; PULSE 73; RESP 16; TEMP 97.5; O2SAT 98
[2017-02-16 04:00] VITALS: BP 152/71; PULSE 74; PULSE 75; RESP 16; TEMP 98.6
[2017-02-16] MEDS: NITROGLYCERIN 2% OINT 1 GM PACKET TOPICAL SCH ×3 (05:10→22:30)
[2017-02-16] MEDS: HEPARIN SODIUM - SQ 10,000 UNITS/ML VIAL SQ SCH ×2 (05:10→17:37)
[2017-02-16] MEDS: guaiFENesin/CODEINE SYRUP 200 MG/20 MG/10 ML CUP PO PRN (05:52)
[2017-02-16 08:00] VITALS: BP 125/59; PULSE 78; RESP 20; TEMP 97.3; O2SAT 96
[2017-02-16] MEDS: PRAVASTATIN SOD 40 MG TAB PO SCH (08:43)
[2017-02-16] MEDS: POTASSIUM CHLORIDE 20 MEQ CONTROLLED RELEASE TAB PO SCH (08:43)
[2017-02-16] MEDS: CLOPIDOGREL 75 MG TAB PO SCH (08:43)
[2017-02-16] MEDS: ASPIRIN EC 81 MG TABEC PO SCH (08:43)
[2017-02-16] MEDS: CALCITRIOL 0.25 MCG CAP PO SCH (08:43)
[2017-02-16] MEDS: SODIUM CHLORIDE 0.9% FLUSH 10 ML FLUSH IV FLUSH SCH ×2 (08:44→22:29)
[2017-02-16] MEDS: PIPERACIL-TAZO 2.25 GM PREMIX 50 ML IV SCH ×2 (08:44→22:30)
[2017-02-16] MEDS: VERAPAMIL HCL 120 MG TAB PO SCH ×2 (08:44→22:29)
--- NOTE | 2017-02-16 11:45 | HHI.NPPN ---
Subjective General Problems: Anemia Renal Failure: Chronic, End Stage Renal Disease Interval History Feels better, breathing has improved. (Jania Gallagher) Review of Systems General Constitutional: Fatigue (Jania Gallagher) Respiratory Lungs: SOB, Cough (Jania Gallagher) Cardiovascular Cardiac: Edema (Jania Gallagher) Objective Data Data Vital Signs Date Time Temp Pulse Resp B/P (MAP) Pulse Ox O2 Delivery O2 Flow Rate FiO2 02/16/17 10:01 Nasal Cannula 4.00 02/16/17 08:00 97.3 78 20 125/59 (81) 96 02/16/17 04:00 98.6 75 16 152/71 (98) 02/16/17 04:00 74 02/16/17 00:00 68 02/16/17 00:00 97.5 73 16 115/57 (76) 98 02/15/17 23:58 98 Nasal Cannula 4.00 02/15/17 20:30 Nasal Cannula 4.00 02/15/17 20:17 97.4 79 19 129/63 (85) 99 02/15/17 20:00 67 02/15/17 18:42 63 02/15/17 16:09 98.8 63 20 133/62 (85) 99 02/15/17 15:45 4.00 02/15/17 15:28 97 Nasal Cannula 3.00 02/15/17 12:09 98.2 70 20 102/53 (69) 97 02/15/17 12:00 63 (Jania Gallagher) -: 02/15/17 0830 02/15/17 0830 Microbiology 02/16/17 Influenza Types A,B Antigen (ISAIAH) - Final, Complete NEGATIVE FOR FLU A AND B ANTIGEN.... Imaging Last [address] 02/15/17 0000 Signed Impressions: Service Date/Time: Wednesday, February 15, 2017 10:58 - CONCLUSION: 1. Bilateral lower lobe atelectasis versus pneumonia. 2. Ascites Stephen Bello MD Chest X-Ray 02/14/17 0400 Signed Impressions: Service Date/Time: Tuesday, February 14, 2017 14:28 - CONCLUSION: 1. Left lower lobe atelectasis versus pneumonia. There has been no significant change when compared to the prior exam. Stephen Bello MD Tubes & Lines: Tenckhoff Catheter (Jania Gallagher) Physical Exam General Appearance: No Acute Distress, Comfortable Appearance Remarks chronically ill appearing (Jania Gallagher SOFTWARE QA SYSTEM SPECIALIST) Throat Throat Exam: Oral Mucosa [place] & Moist (Jania Gallagher SOFTWARE QA SYSTEM SPECIALIST) Pulmonary Resp Exam: Crackles, Rhonchi, Sputum, Decreased Bases (Jania Gallagher SOFTWARE QA SYSTEM SPECIALIST) Cardiology CV Exam: Regular, Normal Sinus Rhythm (Jania Gallagher SOFTWARE QA SYSTEM SPECIALIST) Gastrointestinal/Abdomen GI Exam: Soft, Non-Tender (Jania Gallagher SOFTWARE QA SYSTEM SPECIALIST) Musculoskeletal MS Exam: Joints Intact, Normal Tone (Jania Gallagher SOFTWARE QA SYSTEM SPECIALIST) Integumentary Skin Exam: Warm, Dry Skin Remarks multiple abrasions to lower extremities (Jania Gallagher SOFTWARE QA SYSTEM SPECIALIST) Extremeties Extremities Exam: Pedal Pulses Palpable, Trace Edema (Jania Gallagher SOFTWARE QA SYSTEM SPECIALIST) Neurologic Neuro Exam: Alert, Awake, Oriented, Speech Clear, Moving All Extremities (Jania GallagherP) Psychiatric Psych Exam: Appropriate Responses (Jania Gallagher) Assessment/Plan Discussed Condition With: Patient, Spouse Assessment Summary: Anemia of CKD, End Stage Renal Disease Electrolyte Assessment: Hypokalemia Problem List: (1) ESRD (end stage renal disease) on dialysis ICD Codes: N18.6 - End stage renal disease; Z99.2 - Dependence on renal dialysis Plan: Continue nightly PD, he is on 4 cycles, 9 hrs, 2500 ml; no last fill Continue 2.5% dextrose PD solution Follow UF continue supportive care for now Appetite has improved (2) Pneumonia ICD Codes: J18.9 - Pneumonia Status: Acute Plan: Improved, he is on Zosyn Oxygen as needed May need Respiratory therapy Monitor clinically May benefit from rehab services (3) Troponin level elevated ICD Codes: R74.8 - Abnormal levels of other serum enzymes; N18.9 - Chronic kidney disease, unspecified Status: Acute Plan: Cardiology evaluated, suffered Type II NSTEMI due to pneumonia. Medications added: nitrate, plavix, ASA No plan for revascularization at this time (4) Anemia ICD Codes: D64.9 - Anemia, unspecified Status: Acute Plan: Given Epogen today Plan if discharged we will follow in PD clinic (Jania Gallagher) Plan patient was seen and examined. Agree with above assessment and plan. Epogen today for anemia. Clinically improved, may be discharged to rehab. (Gabriel Salcedo MD) Problem Qualifiers (1) Pneumonia: Qualified Codes: J18.9 - Pneumonia, unspecified organism Jania Gallagher Feb 16, 2017 11:45 Gabriel Salcedo MD Feb 16, 2017 17:42
[2017-02-16 12:00] VITALS: BP 121/57; PULSE 73; RESP 20; TEMP 98.5; O2SAT 96
[2017-02-16] MEDS ORDERED: EPOETIN ALFA 20,000 UNITS/ML VIAL SQ ONE (12:00)
--- NOTE | 2017-02-16 15:21 | HHI.FPPN ---
Subjective Remarks Patient seen and examined at bedside. No acute events overnight. Pt observed to be walking with physical therapy in room. Pt stated his breathing has improved. No other concerns. Objective Vitals Vital Signs Date Time Temp Pulse Resp B/P (MAP) Pulse Ox O2 Delivery O2 Flow Rate FiO2 02/16/17 10:01 Nasal Cannula 4.00 02/16/17 08:00 97.3 78 20 125/59 (81) 96 02/16/17 04:00 98.6 75 16 152/71 (98) 02/16/17 04:00 74 02/16/17 00:00 68 02/16/17 00:00 97.5 73 16 115/57 (76) 98 02/15/17 23:58 98 Nasal Cannula 4.00 02/15/17 20:30 Nasal Cannula 4.00 02/15/17 20:17 97.4 79 19 129/63 (85) 99 02/15/17 20:00 67 02/15/17 18:42 63 02/15/17 16:09 98.8 63 20 133/62 (85) 99 02/15/17 15:45 4.00 02/15/17 15:28 97 Nasal Cannula 3.00 I/O 02/15/17 02/15/17 02/15/17 02/16/17 02/16/17 02/16/17 07:00 15:00 23:00 07:00 15:00 23:00 Intake Total 480 ml 50 ml 610 ml Output Total 0 ml 2326 ml Balance 480 ml 50 ml 610 ml -2326 ml Intake Oral 480 ml 360 ml IV Total 50 ml 250 ml Peritoneal Fluid 0 ml 2326 ml # Voids 0 0 # Bowel Movements 0 0 1 Result Diagram: 02/15/17 0830 02/15/17 0830 Objective Remarks GENERAL: NAD walking with physical therapy. SKIN: Warm and dry. CARDIOVASCULAR: Normal S1 and S2. RESPIRATORY: Coarse breath sounds. Decreased sounds at bases GASTROINTESTINAL: Abdomen soft, non-tender, nondistended. MUSCULOSKELETAL: Extremities with chronic hemosideric changes NEUROLOGICAL: Awake and alert. Good strength. No focal neuro deficits. Normal strength bilaterally. Normal speech. PSYCHIATRIC: Appropriate mood and affect; insight and judgment normal. A/P Assessment and Plan 81-year-old male with past history of renal failure on peritoneal dialysis who was sent to the ED for pneumonia. Chest x-ray in ED shows bibasilar patchiness consistent with atelectasis and or infiltrate. On labs CK 1503, CK-MB 23, troponin 1.04, BNP 3095. EKG without any definite ischemia as noted by ED physician. Currently without symptoms of myocardial infarction. Discharge Planning Will need placement to SNF upon discharge. Case management consult place to assist with placement at [facility]. Problem List: (1) Pneumonia ICD Codes: J18.9 - Pneumonia Status: Acute Plan: Patient with bibasilar patchiness consistent with atelectasis and or infiltrate on admission. Mildly improved -Zosyn 2.25 g every 12 -Azithromycin 500 mg daily -Vanc -Supplemental O2 as needed -f/u Sputum culture -f/u legionella/pneumococcal urine ag - CT thorax: BL lower lobe atelectasis vs pna -Pt respiratory sxs improving. Pt able to ambulate with assistance. (2) FEN Plan: Fluids:Tolerating fluids by mouth Electrolytes: WNL, c/w peritoneal HD Monitor and replete as needed Nutrition: renal diet, Megace to to help stimulate pt's appetite See the residents documentation for details. I saw and evaluated the patient regarding the beck portions of this evaluation and agree with the residents findings and plans as written. Parts of this note were created using [employer] voice recognition software program. While efforts were made to correct any mistakes made by this software, some mistakes, errors, and omissions may remain in the final note that were not caught when the note was originally created. Plan of care was discussed and agreed upon with the patient as specifically documented in the above note. An opportunity to ask questions with explanation was provided. Patient voiced understanding on all information reviewed and discussed. Problem Qualifiers (1) Pneumonia: Qualified Codes: J18.9 - Pneumonia, unspecified organism Roslyn Blankenship MD, R1 Feb 16, 2017 15:21
[2017-02-16 16:00] VITALS: BP 152/65; PULSE 61; RESP 20; TEMP 98.3; O2SAT 99
[2017-02-16] MEDS ORDERED: hydrALAZINE HCL 10 MG TAB PO PRN (19:15)
[2017-02-16 20:00] VITALS: BP 136/63; PULSE 69; PULSE 82; RESP 20; TEMP 98.4; O2SAT 95
[2017-02-16] MEDS: TAMSULOSIN HCL 0.4 MG CAP PO SCH (22:29)
[2017-02-16] MEDS: AZITHROMYCIN 250 MG TAB PO SCH (22:29)
[2017-02-16] MEDS: LATANOPROST 0.005% OPHT SOLN 2.5 ML BTL EACH EYE SCH (22:35)
[2017-02-17] VITALS: BP 141/63; PULSE 61; PULSE 94; RESP 18; TEMP 97.9; O2SAT 97
[2017-02-17 04:00] VITALS: PULSE 67
[2017-02-17 04:50] VITALS: BP 114/59; PULSE 80; RESP 20; TEMP 98.1; O2SAT 93
[2017-02-17] MEDS: guaiFENesin/CODEINE SYRUP 200 MG/20 MG/10 ML CUP PO PRN (05:09)
[2017-02-17] MEDS: NITROGLYCERIN 2% OINT 1 GM PACKET TOPICAL SCH (05:11)
[2017-02-17] MEDS: HEPARIN SODIUM - SQ 10,000 UNITS/ML VIAL SQ SCH (05:12)
[2017-02-17] MEDS: BENZONATATE 100 MG CAP PO PRN (06:23)
[2017-02-17 08:08] VITALS: BP 127/60; PULSE 68; RESP 19; TEMP 98.5; O2SAT 94
[2017-02-17] MEDS: SODIUM CHLORIDE 0.9% FLUSH 10 ML FLUSH IV FLUSH SCH (08:24)
[2017-02-17 08:42] LABS: AUTOMATED NEUTROPHIL # 5.6 TH/MM3 (1.8-7.7); BASOPHIL # 0.1 TH/MM3 (0-0.2); EOSINOPHIL # 0.4 TH/MM3 (0-0.4); EOSINOPHIL % 4.9 % (0.0-4.0); HEMATOCRIT 25.4 % (39.0-51.0); HEMOGLOBIN 8.3 GM/DL (13.0-17.0); LYMPH % 14.6 % (9.0-44.0); LYMPHOCYTE # 1.1 TH/MM3 (1.0-4.8); MEAN CELL VOLUME 92.9 FL (80.0-100.0); MEAN CORPUSCULAR HEMOGLOBIN 30.4 PG (27.0-34.0); MEAN CORPUSCULAR HGB CONC 32.7 % (32.0-36.0); MEAN PLATELET VOLUME 7.9 FL (7.0-11.0); MONO % 7.6 % (0.0-8.0); MONOCYTE # 0.6 TH/MM3 (0-0.9); NEUT % 71.9 % (16.0-70.0); PLATELET COUNT 199 TH/MM3 (150-450); RED BLOOD COUNT 2.73 MIL/MM3 (4.50-5.90); RED CELL DISTRIBUTION WIDTH 17.1 % (11.6-17.2); WHITE BLOOD COUNT 7.8 TH/MM3 (4.0-11.0)
[2017-02-17] MEDS: PIPERACIL-TAZO 2.25 GM PREMIX 50 ML IV SCH (08:43)
[2017-02-17] MEDS: PRAVASTATIN SOD 40 MG TAB PO SCH (08:43)
[2017-02-17] MEDS: POTASSIUM CHLORIDE 20 MEQ CONTROLLED RELEASE TAB PO SCH (08:43)
[2017-02-17] MEDS: ASPIRIN EC 81 MG TABEC PO SCH (08:43)
[2017-02-17] MEDS: CALCITRIOL 0.25 MCG CAP PO SCH (08:43)
[2017-02-17] MEDS: CLOPIDOGREL 75 MG TAB PO SCH (08:43)
[2017-02-17] MEDS: VERAPAMIL HCL 120 MG TAB PO SCH (08:43)
[2017-02-17 08:46] LABS: ALBUMIN 2.1 GM/DL (3.4-5.0); ALT (GPT) 55 U/L (12-78); AST (GOT) 27 U/L (15-37); BICARBONATE 27.2 MEQ/L (21.0-32.0); CALCIUM 8.7 MG/DL (8.5-10.1); CHLORIDE 104 MEQ/L (98-107); CREATININE 8.59 MG/DL (0.60-1.30); GLOMERULAR FILTRATION RATE 6 ML/MIN (>89); GLUCOSE,RANDOM 124 MG/DL (74-106); SODIUM (NA) 139 MEQ/L (136-145)
[2017-02-17 08:49] LABS: ALKALINE PHOSPHATASE 52 U/L (45-117); TOTAL BILIRUBIN ADULT 0.4 MG/DL (0.2-1.0); TOTAL PROTEIN 6.1 GM/DL (6.4-8.2)
[2017-02-17 08:51] LABS: BLOOD UREA NITROGEN 60 MG/DL (7-18)
[2017-02-17] MEDS ORDERED: MEGESTROL ACETATE SUSP 400 MG/10 ML CUP PO SCH (10:00)
[2017-02-17 10:01] VITALS: O2SAT 92
--- NOTE | 2017-02-17 10:06 | HHI.FPPN ---
Subjective Remarks Patient seen and examined bedside this morning. Patient states that he feels his breathing is getting better every day. He still has occasional coughing however this is much improved. Patient denies any fever/chills. Patient denies any productive sputum. Patient performed the oxygen walk test yesterday and passed. He does say that he was surprised at how fatigued he was well walking around. Patient is looking forward to going to [facility]. He denies any chest pain/shortness of breath/dizziness. (Verna Hanson MD R2) Objective Vitals Vital Signs Date Time Temp Pulse Resp B/P (MAP) Pulse Ox O2 Delivery O2 Flow Rate FiO2 02/17/17 08:08 98.5 68 19 127/60 (82) 94 02/17/17 04:50 98.1 80 20 114/59 (77) 93 02/17/17 04:00 67 02/17/17 00:00 97.9 61 18 141/63 (89) 97 02/17/17 00:00 94 02/16/17 20:00 98.4 69 20 136/63 (87) 95 02/16/17 20:00 82 02/16/17 20:00 Nasal Cannula 2.00 02/16/17 16:00 98.3 61 20 152/65 (94) 99 02/16/17 12:00 98.5 73 20 121/57 (78) 96 02/16/17 10:01 Nasal Cannula 4.00 I/O 02/16/17 02/16/17 02/16/17 02/17/17 02/17/17 02/17/17 06:59 14:59 22:59 06:59 14:59 22:59 Intake Total 720 ml 240 ml Output Total 2326 ml Balance -2326 ml 720 ml 240 ml Intake Oral 720 ml 240 ml Peritoneal Fluid 2326 ml # Voids 1 0 # Bowel Movements 1 1 0 (Verna Hanson MD R2) Result Diagram: 02/17/1772702/17/17727 Objective Remarks GENERAL: NAD walking with physical therapy. SKIN: Warm and dry. CARDIOVASCULAR: Normal S1 and S2. RESPIRATORY: Coarse breath sounds and wheezing. Decreased sounds at bases. Occasional coughing GASTROINTESTINAL: Abdomen soft, non-tender, nondistended. MUSCULOSKELETAL: Extremities with chronic hemosideric changes NEUROLOGICAL: Awake and alert. Good strength. No focal neuro deficits. Normal strength bilaterally. Normal speech. PSYCHIATRIC: Appropriate mood and affect; insight and judgment normal. (Verna Hanson MD R2) A/P Assessment and Plan 81-year-old male with past history of renal failure on peritoneal dialysis who was sent to the ED for pneumonia. Chest x-ray in ED shows bibasilar patchiness consistent with atelectasis and or infiltrate. On labs CK 1503, CK-MB 23, troponin 1.04, BNP 3095. EKG without any definite ischemia as noted by ED physician. Currently without symptoms of myocardial infarction. Discharge Planning Will need placement to SNF upon discharge. Case management consult place [facility]. (Verna Hanson MD R2) Problem List: (1) Pneumonia ICD Codes: J18.9 - Pneumonia Status: Acute Plan: Pneumonia and COPD Patient with bibasilar patchiness consistent with atelectasis and or infiltrate on admission. Improving daily per patient -Zosyn 2.25 g every 12h (started 02/11/17) -Azithromycin 500 mg daily (started 02/11/17) - Continue Vanc w/ pharmacy consult (started 02/13/17) - Continue Robitussin every 6 hours when necessary coughing - Continue Tessalon Perles 100 mg 3 times a day when necessary coughing -Supplemental O2 as needed -f/u Sputum culture -f/u legionella/pneumococcal urine ag - CT thorax: BL lower lobe atelectasis vs pna -Pt respiratory sxs improving. Pt able to ambulate with assistance. (2) End stage renal disease ICD Codes: N18.6 - End stage renal disease Status: Chronic Plan: Continue nightly peritoneal dialysis; 4 cycles, 9 hours, 2.5 L Continue recommendations of nephrology Follow-up with nephrology outpatient Continue calcitriol daily Continue multivitamin daily (3) Troponin level elevated ICD Codes: R74.8 - Abnormal levels of other serum enzymes; N18.9 - Chronic kidney disease, unspecified Status: Acute Plan: Initial troponin level 0.95, historically 0.22 on 09/23/16. 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 Improving daily per patient -Zosyn 2.25 g every 12h (started 02/11/17) -Azithromycin 500 mg daily (started 02/11/17) - Continue Vanc w/ pharmacy consult (started 02/13/17) - Continue Robitussin every 6 hours when necessary coughing - Continue Tessalon Perles 100 mg 3 times a day when necessary coughing -Supplemental O2 as needed -f/u Sputum culture -f/u legionella/pneumococcal urine ag - CT thorax: BL lower lobe atelectasis vs pna -Pt respiratory sxs improving. Pt able to ambulate with assistance. (2) End stage renal disease ICD Codes: N18.6 - End stage renal disease Status: Chronic Plan: Continue nightly peritoneal dialysis; 4 cycles, 9 hours, 2.5 L Continue recommendations of nephrology Follow-up with nephrology outpatient Continue calcitriol daily Continue multivitamin daily (3) Troponin level elevated ICD Codes: R74.8 - Abnormal levels of other serum enzymes; N18.9 - Chronic kidney disease, unspecified Status: Acute Plan: Initial troponin level 0.95, historically 0.22 on 09/23/16. 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 I saw and evaluated the patient regarding the beck portions of this evaluation and agree with the residents findings and plans as written. Parts of this note were created using [employer] voice recognition software program. While efforts were made to correct any mistakes made by this software, some mistakes, errors, and omissions may remain in the final note that were not caught when the note was originally created. Plan of care was discussed and agreed upon with the patient as specifically documented in the above note. An opportunity to ask questions with explanation was provided. Patient voiced understanding on all information reviewed and discussed. (Sylvester Ayoub MD) Problem Qualifiers (1) Pneumonia: Qualified Codes: J18.9 - Pneumonia, unspecified organism Verna Hanson MD R2 Feb 17, 2017 10:06 Sylvester Ayoub MD Feb 17, 2017 16:38
[2017-02-17] MEDS ORDERED: Albuterol Neb NEB (10:20)
[2017-02-17] MEDS ORDERED: Megestrol Liq PO (10:20)
--- NOTE | 2017-02-17 10:21 | HHI.DCPOC ---
Discharge Care Plan Diagnosis: (1) ESRD (end stage renal disease) on dialysis (2) Pneumonia (3) End stage renal disease (4) Sepsis Goals to Promote Your Health * To prevent worsening of your condition and complications * To maintain your health at the optimal level Directions to Meet Your Goals Take your medications as prescribed Follow your dietary instruction Follow activity as directed Keep your appointments as scheduled Take your immunizations and boosters as scheduled If your symptoms worsen call your PCP, if no PCP go to Urgent Care Center or Emergency Room Smoking is Dangerous to Your Health. Avoid second hand smoke Call the 24-hour hour crisis hotline for domestic abuse at Verna Hanson MD R2 Feb 17, 2017 10:21
--- NOTE | 2017-02-17 10:21 | HHI.DS ---
Discharge Summary Admission Date Feb 11, 2017 at 15:23 Admitting Diagnosis PNA, elevated troponin, leukocytosis (1) Pneumonia Plan: Pneumonia and COPD Patient with bibasilar patchiness consistent with atelectasis and or infiltrate on admission. Improving daily per patient -Zosyn 2.25 g every 12h (started 02/11/17) -Azithromycin 500 mg daily (started 02/11/17) - Continue Vanc w/ pharmacy consult (started 02/13/17) - Continue Robitussin every 6 hours when necessary coughing - Continue Tessalon Perles 100 mg 3 times a day when necessary coughing -Supplemental O2 as needed -f/u Sputum culture -f/u legionella/pneumococcal urine ag - CT thorax: BL lower lobe atelectasis vs pna -Pt respiratory sxs improving. Pt able to ambulate with assistance. ICD Codes: J18.9 - Pneumonia Status: Acute (2) End stage renal disease Plan: Continue nightly peritoneal dialysis; 4 cycles, 9 hours, 2.5 L Continue recommendations of nephrology Follow-up with nephrology outpatient Continue calcitriol daily Continue multivitamin daily ICD Codes: N18.6 - End stage renal disease Status: Chronic (3) Troponin level elevated Plan: Initial troponin level 0.95, historically 0.22 on 09/23/16. 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 He was noted to be resting in a chair by the bed. He denied any complaints at this time. He does state feeling fatigued. He denied any complaint of chest pain, shortness of breath, or abdominal discomfort. States that he was able to undergo his dialysis yesterday, and it went well. Patient was seen by his explosive technician and supervisor mattress and boxsprings. According to the patient he is feeling much better today, as he did yesterday. CBC/BMP: 02/17/17 0728 02/17/17 0728 Significant Findings Laboratory Tests Test 02/15/17 08:30 02/17/17 07:28 Red Blood Count 2.49 MIL/MM3 (4.50-5.90) 2.73 MIL/MM3 (4.50-5.90) Hemoglobin 7.8 GM/DL (13.0-17.0) 8.3 GM/DL (13.0-17.0) Hematocrit 23.5 % (39.0-51.0) 25.4 % (39.0-51.0) Red Cell Distribution Width 17.5 % (11.6-17.2) Platelet Count 127 TH/MM3 (150-450) Blood Urea Nitrogen 66 MG/DL (7-18) 60 MG/DL (7-18) Creatinine 8.53 MG/DL (0.60-1.30) 8.59 MG/DL (0.60-1.30) Estimat Glomerular Filtration Rate 6 ML/MIN (>89) 6 ML/MIN (>89) Neutrophils (%) (Auto) 71.9 % (16.0-70.0) Eosinophils (%) (Auto) 4.9 % (0.0-4.0) Random Glucose 124 MG/DL (74-106) Total Protein 6.1 GM/DL (6.4-8.2) Albumin 2.1 GM/DL (3.4-5.0) PE at Discharge GENERAL: NAD walking with physical therapy. SKIN: Warm and dry. CARDIOVASCULAR: Normal S1 and S2. RESPIRATORY: Coarse breath sounds and wheezing. Decreased sounds at bases. Occasional coughing GASTROINTESTINAL: Abdomen soft, non-tender, nondistended. MUSCULOSKELETAL: Extremities with chronic hemosideric changes NEUROLOGICAL: Awake and alert. Good strength. No focal neuro deficits. Normal strength bilaterally. Normal speech. PSYCHIATRIC: Appropriate mood and affect; insight and judgment normal. Verna Hanson MD R2 Feb 17, 2017 10:21
--- NOTE | 2017-02-17 10:49 | HHI.NPPN ---
Subjective General Problems: Anemia Renal Failure: Chronic, End Stage Renal Disease Interval History Looks better. Anticipating transfer to [facility] today. PD going well. (Jania Gallagher) Review of Systems General Constitutional: Fatigue (Jania Gallagher) Respiratory Lungs: SOB, Cough (Jania Gallagher) Cardiovascular Cardiac: Edema (Jania Gallagher) Objective Data Data Vital Signs Date Time Temp Pulse Resp B/P (MAP) Pulse Ox O2 Delivery O2 Flow Rate FiO2 02/17/17 10:01 92 Nasal Cannula 4.00 02/17/17 10:01 4.00 02/17/17 08:08 98.5 68 19 127/60 (82) 94 02/17/17 04:50 98.1 80 20 114/59 (77) 93 02/17/17 04:00 67 02/17/17 00:00 97.9 61 18 141/63 (89) 97 02/17/17 00:00 94 02/16/17 20:00 98.4 69 20 136/63 (87) 95 02/16/17 20:00 82 02/16/17 20:00 Nasal Cannula 2.00 02/16/17 16:00 98.3 61 20 152/65 (94) 99 02/16/17 12:00 98.5 73 20 121/57 (78) 96 (Jania Gallagher) -: 02/17/17 0728 02/17/17 0728 Imaging Last [address] 02/15/17 0000 Signed Impressions: Service Date/Time: Wednesday, February 15, 2017 10:58 - CONCLUSION: 1. Bilateral lower lobe atelectasis versus pneumonia. 2. Ascites Stephen Bello MD Tubes & Lines: Tenckhoff Catheter (Jania Gallagher) Physical Exam General Appearance: No Acute Distress, Comfortable Appearance Remarks chronically ill appearing (Jania Gallagher) Throat Throat Exam: Oral Mucosa [facility]ist (Jania Gallagher) Pulmonary Resp Exam: Crackles, Rhonchi, Sputum, Decreased Bases (Jania Gallagher) Cardiology CV Exam: Regular, Normal Sinus Rhythm (Jania Gallagher) Gastrointestinal/Abdomen GI Exam: Soft, Non-Tender (Jania Gallagher) Musculoskeletal MS Exam: Joints Intact, Normal Tone (Jania Gallagher) Integumentary Skin Exam: Warm, Dry Skin Remarks multiple abrasions to lower extremities (Jania Gallagher) Extremeties Extremities Exam: Pedal Pulses Palpable, Trace Edema (Jania Gallagher) Neurologic Neuro Exam: Alert, Awake, Oriented, Speech Clear, Moving All Extremities (Jania Gallagher) Psychiatric Psych Exam: Appropriate Responses (Jania Gallagher) Assessment/Plan Discussed Condition With: Patient, Spouse Assessment Summary: Anemia of CKD, End Stage Renal Disease Problem List: (1) ESRD (end stage renal disease) on dialysis ICD Codes: N18.6 - End stage renal disease; Z99.2 - Dependence on renal dialysis Plan: Continue nightly PD, he is on 4 cycles, 9 hrs, 2500 ml; no last fill Continue 2.5% dextrose PD solution Adequate UF continue supportive care Appetite has improved; high protein diet encouraged. (2) Pneumonia ICD Codes: J18.9 - Pneumonia Status: Acute Plan: Improved, he is on Zosyn Oxygen as needed May need Respiratory therapy Monitor clinically May benefit from rehab services (3) Troponin level elevated ICD Codes: R74.8 - Abnormal levels of other serum enzymes; N18.9 - Chronic kidney disease, unspecified Status: Acute Plan: Cardiology evaluated, suffered Type II NSTEMI due to pneumonia. Medications added: nitrate, plavix, ASA No plan for revascularization at this time (4) Anemia ICD Codes: D64.9 - Anemia, unspecified Status: Chronic Plan: Given Epogen this week Plan (Jania Gallagher) Plan patient was seen and examined. Agree with above assessment and plan. (Gabriel Salcedo MD) Problem Qualifiers (1) Pneumonia: Qualified Codes: J18.9 - Pneumonia, unspecified organism Jania Gallagher Feb 17, 2017 10:49 Gabriel Salcedo MD Feb 17, 2017 12:23
[2017-02-17] MEDS ORDERED: ISOS30TA3 PO (11:11)
[2017-02-17] MEDS ORDERED: BENZ100 PO (11:15)
[2017-02-17] MEDS ORDERED: ECASA81 PO (11:15)
[2017-02-17] MEDS ORDERED: AZIT250T3 PO (11:15)
[2017-02-18] MEDS ORDERED: MEGESTROL ACETATE SUSP 400 MG/10 ML CUP PO SCH (09:00)
== END 2017-02-17 12:42 | DRG 871 ==
LOC: NEPC 13:00 → NEDA 15:23 → N04B 16:43
PROVIDERS: ADMIT Family Medicine; ATTEND Family Medicine
PROC: 3E1M39Z Irrigation of Peritoneal Cavity using Dialysate, Percutaneous Approach (ICD-10-PCS; principal; 2017-02-11)
DX: A41.9 Sepsis, unspecified organism (principal); J18.9 Pneumonia, unspecified organism; I21.A1 Myocardial infarction type 2; I12.0 Hypertensive chronic kidney disease with stage 5 chronic kidney disease or end stage renal disease; N18.6 End stage renal disease; D63.1 Anemia in chronic kidney disease; I35.8 Other nonrheumatic aortic valve disorders; N25.81 Secondary hyperparathyroidism of renal origin; J44.0 Chronic obstructive pulmonary disease with (acute) lower respiratory infection; R29.6 Repeated falls; E78.5 Hyperlipidemia, unspecified; G47.30 Sleep apnea, unspecified; I87.2 Venous insufficiency (chronic) (peripheral); E87.6 Hypokalemia
CPT/HCPCS: 71045; 71046; 71250; 80048; 80053; 80202; 82550; 82552; 83605; 83735; 83880; 84100; 84484; 85025; 85027; 85610; 85730; 87040; 87804; 90935; 93005; 93306; 94150; 94618; 94640; 94664; 96374; 96375; J1644; J1940; J1956; J2543; J3370; J7040; J7050; J7613; Q4081

== ENCOUNTER 2017-03-06 09:33 | Observation (INO) | payer MEDICARE ==
[~2017-03-06] VITALS: Ht 162.6 cm; Wt 73.7 kg
[~2017-03-06 09:33] MED LIST changes: +AZIT250T3 PO; +Albuterol Neb NEB; +BENZ100 PO; +Budeson-Formot 160-4.5 Mcg Inh INH; +CELE20TA PO; +ECASA81 PO; +HYDR-3799 PO; +ISOS30TA3 PO; +MELA5 PO; +Megestrol Liq PO; +Nystatin Powder TOPICAL; +SEVEL800 PO; +THERTAB15 PO; +VENTAER INH; +WHEEMIS3
[2017-03-06] MEDS ORDERED: SODIUM CHLOR 0.9% 1000 ML INJ 1,000 ML IV PRN (09:48)
[2017-03-06] MEDS ORDERED: SODIUM CHLOR 0.9% 1000 ML INJ 1,000 ML OTHER PRN ×2 (09:48)
[2017-03-06] MEDS ORDERED: SODIUM CHLORID 0.9% 500 ML IV PRN (10:00)
[2017-03-06] MEDS ORDERED: GELATIN 12 MM/7 MM FOAM TOP PRN (10:00)
[2017-03-06] MEDS ORDERED: SODIUM CHLORIDE 0.9% FLUSH 10 ML FLUSH IV FLUSH PRN ×2 (10:00→20:15)
[2017-03-06] MEDS ORDERED: POVIDONE IODINE 5% (ANTISEPSIS KIT) 4 APPLICATIONS EACH NARE PRN (10:00)
[2017-03-06] MEDS ORDERED: NITROGLYCERIN 0.4 MG SL 25 TABS/BTL SL PRN (10:00)
[2017-03-06] MEDS ORDERED: ACETAMINOPHEN 325 MG TAB PO PRN ×2 (10:00→20:15)
[2017-03-06] MEDS ORDERED: MANNITOL 12.5 GM/50 ML VIAL IV PRN (10:00)
[2017-03-06] MEDS ORDERED: cloNIDine HCL 0.1 MG TAB PO PRN (10:00)
[2017-03-06] MEDS ORDERED: INSULIN HUMAN REGULAR 1,000 UNITS/10 ML VIAL SQ PRN (10:00)
[2017-03-06] MEDS ORDERED: GENTAMICIN SULFATE 20 MG/2 ML VIAL OTHER PRN (10:00)
[2017-03-06] MEDS ORDERED: ceFAZolin 1,000 MG/NS 100 ML IV SCH ×2 (10:00)
[2017-03-06] MEDS ORDERED: HEPARIN SODIUM - IV 10,000 UNITS/10 ML VIAL IV FLUSH PRN (10:00)
[2017-03-06] MEDS ORDERED: ALBUMIN 25% INJ 100 ML IV PRN (10:00)
[2017-03-06] MEDS ORDERED: METOPROLOL TARTRATE 25 MG TAB PO PRN (10:00)
[2017-03-06] MEDS ORDERED: LACTATED RINGER'S 1000 ML IV PRN (10:00)
[2017-03-06] MEDS ORDERED: HEPARIN SODIUM - IV 10,000 UNITS/10 ML VIAL PRN (10:00)
[2017-03-06] MEDS ORDERED: ONDANSETRON HCL 4 MG/2 ML VIAL IV PUSH PRN (10:00)
[2017-03-06] MEDS ORDERED: diphenhydrAMINE HCL 25 MG CAP PO PRN (10:00)
[2017-03-06] MEDS ORDERED: CHLORHEXIDINE GLUCONATE 2 % 1 PACK (2 CLOTHS) TOPICAL PRN (10:00)
[2017-03-06] MEDS ORDERED: COMMODE 3-IN-11 MIS (11:55)
[2017-03-06] MEDS ORDERED: BUPIVACAINE/EPINEPHRINE 0.5% 50 ML VIAL ONE (13:06)
[2017-03-06] MEDS ORDERED: LIDOCAINE 1%/EPINEPHrine 1:100,000 SOLN 50 ML VIAL ONE (13:46)
[2017-03-06] MEDS ORDERED: SUGAMMADEX SODIUM 200 MG/2 ML VIAL IV PUSH ONE (15:32)
[2017-03-06] MEDS ORDERED: DO NOT ADM ANY ANTICOAGULANT DRUGS PRN (16:15)
[2017-03-06] MEDS ORDERED: PROCHLORPERAZINE 25 MG SUPP RECTAL PRN (20:15)
[2017-03-06] MEDS ORDERED: NALOXONE HCL 0.4 MG/ML AMP IV PUSH PRN (20:15)
[2017-03-06] MEDS ORDERED: RESP: ALBUTEROL 2.5 MG/3 ML NEB (PRN) NEB (21:15)
[2017-03-06] MEDS ORDERED: ACETAMINOPHEN/HYDROcodone 325 MG/5 MG TAB PO PRN (21:30)
[2017-03-06] MEDS ORDERED: hydrALAZINE HCL 10 MG TAB PO PRN (21:30)
[2017-03-06 21:33] VITALS: BP 165/69; PULSE 71; RESP 18; TEMP 98.2; O2SAT 95
[2017-03-06] MEDS: SODIUM CHLORIDE 0.9% FLUSH 10 ML FLUSH IV FLUSH SCH (22:48)
[2017-03-06] MEDS: BUDESONIDE-FORMOTEROL 160/4.5 MCG INHALER INH SCH (23:06)
[2017-03-06] MEDS: TAMSULOSIN HCL 0.4 MG CAP PO SCH (23:06)
[2017-03-06] MEDS: LATANOPROST 0.005% OPHT SOLN 2.5 ML BTL EACH EYE SCH (23:06)
[2017-03-06] MEDS: hydrALAZINE HCL 25 MG TAB PO SCH (23:06)
[2017-03-06] MEDS: MELATONIN 5 MG TAB PO PRN (23:06)
--- NOTE | 2017-03-06 23:28 | HHI.HP ---
HPI Service [facility] . Primary Care Physician Lisa Yousif MD . Admission Diagnosis ESRD with peritoneal dialysis catheter malfunction s/p tenckhoff catheter revision Diagnoses: (1) ESRD (end stage renal disease) on dialysis (2) Hypertension Chief Complaint: Malfunctioning PD catheter Travel History International Travel<30 Days: No Contact w/Intl Traveler <30 Da: No History of Present Illness Mr. Mcgovern is a pleasant 81 y/o male with a history of ESRD on PD now requiring HD due to PD catheter malfunction who has been in the hospital/rehabilitation since February 11 for treatment and recovery from pneumonia and NSTEMI. He was discharged from [facility] 03/06/16 to [facility] for Tenckhoff catheter revision by Dr. Kothari and then transferred to [facility] for observation and medical management following the procedure under the care of [facility]. The patient is seen on the 6N. He is lying in bed and denies post-procedural pain. Also denies chest pain or shortness of breath. He reports some generalized weakness related to prolonged hospitalization with pneumonia. He denies any fevers, chills, nausea, vomiting, or diarrhea. Review of Systems Except as stated in HPI: all other systems reviewed are Neg Past Family Social History Past Medical History COPD suspected during prior hospitalization NS.ALLYSON Obstructive sleep apnea - has not used CPAP throughout hospitalization BPH Hypertension End-stage renal disease Pneumonia Past Surgical History Tenckhoff catheter placement and revision Tonsillectomy . Reported Medications Reported Meds & Active Scripts Active Commode 3-in-1 (Device) 1 Mis Mis Ea .ROUTE DIRECTED Ventolin Hfa 18 GM Inh (Albuterol Sulfate) 90 Mcg/Act Aer 2 Puff INH Q4-6H PRN Melatonin 5 Mg Tab 5 Mg PO HS PRN Thera Tablet (Multivitamin with Folic Acid) 400 Mcg Tablet 1 Tab PO DAILY [Nystatin Powder] 15 APPLIC/15 GM Powd 1 Applic TOPICAL Q8HR 30 Days [Budeson-Formot 160-4.5 Mcg Inh] 60 PUFF Aero 1 Puff INH Q12HR 30 Days Renvela (Sevelamer Carbonate) 800 Mg Tab 1,600 Mg PO TIDAC 30 Days Celexa (Citalopram Hydrobromide) 20 Mg Tab 20 Mg PO DAILY Hydralazine HCl 25 Mg Tablet 25 Mg PO Q8HR Tessalon Perles (Benzonatate) 100 Mg Cap 100 Mg PO TID PRN Aspirin DR (Aspirin) 81 Mg Tabdr 81 Mg PO DAILY Isosorbide Mononitrate ER (Isosorbide Mononitrate) 30 Mg Hayder 30 Mg PO DAILY Tamsulosin (Tamsulosin HCl) 0.4 Mg Cap 0.4 Mg PO HS Lovastatin 40 Mg Tab 40 Mg PO DAILY Clopidogrel (Clopidogrel Bisulfate) 75 Mg Tab 75 Mg PO DAILY Verapamil (Verapamil HCl) 120 Mg Tab 120 Mg PO BID Calcitriol 0.25 Mcg Cap 0.25 Mcg PO DAILY Wheelchair (Device) 1 Mis Mis Ea .ROUTE DIRECTED Reported Travatan Z Opth Drops (Travoprost) 0.004 % Soln 1 Drop EACH EYE HS D3 (Cholecalciferol) 400 Unit Cap . Allergies: Coded Allergies: No Known Allergies (Unverified Allergy, Unknown, 03/06/17) Active Ordered Medications Acetaminophen (Tylenol) 650 mg UNSCH PRN PO for headach, pain, temp > 101F; Start 03/06/17 at 10:00 Diphenhydramine HCl (Benadryl) 25 mg UNSCH PRN PO for hives/itching/anaphylaxis ; Start 03/06/17 at 10:00 Nitroglycerin (Nitrostat Sl) 0.4 mg UNSCH PRN SL CHEST PAIN; Start 03/06/17 at 10:00 Clonidine (Catapres) 0.1 mg UNSCH PRN PO for BP > 180/100 X 2 readings; Start 03/06/17 at 10:00 Gelatin (Gelfoam 12 Mm/7 Mm Top) 1 foam UNSCH PRN TOP SEE LABEL COMMENTS; Start 03/06/17 at 10:00 Fentanyl Citrate (fentaNYL INJ) 100 mcg STK-MED ONCE .ROUTE ; Start 03/06/17 at 13:03; Stop 03/06/17 at 13:04; Status DC Bupivacaine HCl/ Epinephrine Bitart (Sensorcaine-Epi 0.5% 50 ml Inj) 50 ml STK- MED ONCE .ROUTE Last administered on 03/06/17at 15:24; Start 03/06/17 at 13:06; Stop 03/06/17 at 13:07; Status DC Lidocaine/ Epinephrine (Xylocaine-Epi 1%-1:100,000 Inj) 50 ml STK-MED ONCE .ROUTE ; Start 03/06/17 at 13:46; Stop 03/06/17 at 13:47; Status DC Sugammadex Sodium (Bridion Inj) 200 mg STK-MED ONCE IV PUSH ; Start 03/06/17 at 15:32; Stop 03/06/17 at 15:33; Status DC Miscellaneous Information ALL NURSING DEPARTME... UNSCH PRN .XX SEE LABEL COMMENTS; Start 03/06/17 at 16:15; Stop 03/07/17 at 16:14 Sodium Chloride (NS Flush) 2 ml UNSCH PRN IV FLUSH FLUSH AFTER USING IV ACCESS ; Start 03/06/17 at 20:15 Sodium Chloride (NS Flush) 2 ml BID IV FLUSH Last administered on 03/06/17at 22: 48; Start 03/06/17 at 21:00 Acetaminophen (Tylenol) 650 mg Q4H PRN PO TEMP > 100.4; Start 03/06/17 at 20:15 ; Stop 03/06/17 at 20:31; Status DC Prochlorperazine (Compazine Supp) 25 mg Q12H PRN RECTAL NAUSEA OR VOMITING; Start 03/06/17 at 20:15 Heparin Sodium (Porcine) (Heparin Inj) 5,000 units Q8H SQ ; Start 03/07/17 at 09 :00 Naloxone HCl (Narcan Inj) 0.4 mg UNSCH PRN IV PUSH SEE LABEL COMMENTS; Start at 20:15 Albuterol Sulfate (Albuterol Neb) 2.5 mg Q2HR NEB PRN NEB SOB/WHEEZING; Start 03/06/17 at 21:15 Hydralazine HCl (Apresoline) 10 mg Q6HR PRN PO SBP > 160, DBP > 90; Start 03/06 at 21:30 Tamsulosin HCl (Flomax) 0.4 mg HS PO Last administered on 03/06/17at 23:06; Start 03/06/17 at 21:30 Pravastatin Sodium (Pravachol) 40 mg DAILY PO ; Start 03/07/17 at 09:00 Isosorbide Mononitrate (Imdur) 30 mg DAILY@07 PO ; Start 03/07/17 at 07:00 Clopidogrel Bisulfate (Plavix) 75 mg DAILY PO ; Start 03/07/17 at 09:00 Calcitriol (Rocaltrol) 0.25 mcg DAILY PO ; Start 03/07/17 at 09:00 Aspirin (Ecotrin Ec) 81 mg DAILY PO ; Start 03/07/17 at 09:00 Budesonide/ Formoterol Fumarate (Symbicort 160-4.5 Mcg Inh) 1 puff Q12HR INH Last administered on 03/06/17at 23:06; Start 03/06/17 at 21:30 Sevelamer Carbonate (Renvela) 1,600 mg TIDAC PO ; Start 03/07/17 at 08:00 Melatonin (Melatonin) 5 mg HS PRN PO INSOMNIA Last administered on 03/06/17at 23 :06; Start 03/06/17 at 21:30 Hydralazine HCl (Apresoline) 25 mg Q8HR PO Last administered on 03/06/17at 23:06 ; Start 03/06/17 at 22:00 Latanoprost (Xalatan 0.005% Opt Soln) 1 drop HS EACH EYE Last administered on 03/06/17at 23:06; Start 03/06/17 at 21:30 Verapamil HCl (Isoptin) 120 mg Q12HR PO ; Start 03/07/17 at 09:00 Docusate Sodium (Colace) 100 mg DAILY PO ; Start 03/07/17 at 09:00 Citalopram Hydrobromide (CeleXA) 20 mg DAILY PO ; Start 03/07/17 at 09:00 Acetaminophen/ Hydrocodone Bitart ([place] 5-325 Mg) 1 tab Q4H PRN PO pain > 4; Start 03/06/17 at 21:30 . Family History Patient is an only child Father age 50 from myocardial infarction Mother during childbirth Denies any other significant family medical history . Social History Tobacco: Denies ever smoking Alcohol: Reports very rare alcohol use Illicit Drugs: Denies Originally from the [place] . Physical Exam Vital Signs Vital Signs Date Time Temp Pulse Resp B/P (MAP) Pulse Ox O2 Delivery O2 Flow Rate FiO2 03/06/17 21:33 98.2 71 18 165/69 (101) 95 03/06/17 17:15 97.7 60 16 146/62 (90) 99 Nasal Cannula 2 03/06/17 17:00 57 16 151/66 (94) 99 Nasal Cannula 2 03/06/17 16:45 55 17 141/59 (86) 98 Nasal Cannula 2 03/06/17 16:30 59 18 134/63 (86) 98 Nasal Cannula 2 03/06/17 16:14 97.6 65 22 151/65 (93) 98 Nasal Cannula 2 03/06/17 10:00 98.5 67 18 120/59 (79) 96 Physical Exam GENERAL: This is a pleasant 81 y/o male patient, in no apparent distress. SKIN: Cool and dry. HEAD: Atraumatic. Normocephalic. EYES: No scleral icterus. No injection or drainage. ENT: Nose without bleeding, purulent drainage. NECK: Trachea midline. No JVD. CARDIOVASCULAR: Regular rate and rhythm without murmurs, gallops, or rubs. Bilateral lower extremities with brown discoloration in the alexandre area and some irregular areas of pales skin that the patient states have been there for a long time and occasionally will bleed. Looks like PVD with some ulcerations in various stages of healing. RESPIRATORY: Clear to auscultation. Breath sounds equal bilaterally. No wheezes , rales, or rhonchi. GASTROINTESTINAL: Abdomen soft, non-tender, nondistended. No guarding. MUSCULOSKELETAL: Extremities without clubbing, cyanosis, or edema. No calf tenderness. NEUROLOGICAL: Awake and alert. Motor and sensory grossly within normal limits. Normal speech. . Laboratory Laboratory Tests Test 03/06/17 10:30 Potassium Level 4.7 Result Diagram: 03/06/17 1030 Caprini VTE Risk Assessment Caprini VTE Risk Assessment: Mod/High Risk (score >= 2) Caprini Risk Assessment Model Point Value = 1 Point Value = 2 Point Value = 3 Point Value = 5 Age 41-60 Minor surgery BMI > 25 kg/m2 Swollen legs Varicose veins or History of unexplained or recurrent spontaneous Oral contraceptives or hormone replacement Sepsis (< 1 month) Serious lung disease, including pneumonia (< 1 month) Abnormal pulmonary function Acute myocardial infarction Congestive heart failure (< 1 month) History of inflammatory bowel disease Medical patient at bed rest Age 61-74 Arthroscopic surgery Major open surgery (> 45 min) Laparoscopic surgery (> 45 min) Malignancy Confined to bed (> 72 hours) Immobilizing plaster cast Central venous access Age >= 75 History of VTE Family history of VTE Factor V Leiden Prothrombin [id number] Lupus anticoagulant Anticardiolipin antibodies Elevated serum homocysteine Heparin-induced thrombocytopenia Other congenital or acquired thrombophilia Stroke (< 1 month) Elective arthroplasty Hip, pelvis, or leg fracture Acute spinal cord injury (< 1 month) Prophylaxis Regimen Total Risk Factor Score Risk Level Prophylaxis Regimen 0-1 Low Early ambulation 2 Moderate Order ONE of the following: *Sequential Compression Device (SCD) *Heparin 5000 units SQ BID 3-4 Higher Order ONE of the following medications: *Heparin 5000 units SQ TID *Enoxaparin/Lovenox 40 mg SQ daily (WT < 150 kg, CrCl > 30 mL/min) *Enoxaparin/Lovenox 30 mg SQ daily (WT < 150 kg, CrCl > 10-29 mL/min) *Enoxaparin/Lovenox 30 mg SQ BID (WT < 150 kg, CrCl > 30 mL/min) AND/OR *Sequential Compression Device (SCD) 5 or more Highest Order ONE of the following medications: *Heparin 5000 units SQ TID (Preferred with Epidurals) *Enoxaparin/Lovenox 40 mg SQ daily (WT < 150 kg, CrCl > 30 mL/min) *Enoxaparin/Lovenox 30 mg SQ daily (WT < 150 kg, CrCl > 10-29 mL/min) *Enoxaparin/Lovenox 30 mg SQ BID (WT < 150 kg, CrCl > 30 mL/min) AND *Sequential Compression Device (SCD) Assessment and Plan Problem List: (1) ESRD (end stage renal disease) on dialysis ICD Code: N18.6 - End stage renal disease; Z99.2 - Dependence on renal dialysis Status: Chronic (2) Hypertension ICD Code: I10 - Hypertension Status: Chronic (3) NSTEMI (non-ST elevated myocardial infarction) ICD Code: I21.4 - Non-ST elevation (NSTEMI) myocardial infarction Status: Resolved (4) COPD (chronic obstructive pulmonary disease) ICD Code: J44.9 - Chronic obstructive pulmonary disease, unspecified (5) Debility ICD Code: R53.81 - Other malaise Assessment and Plan Mr. Mcgovern is a pleasant 81 y/o male with a history of ESRD on PD now requiring HD due to PD catheter malfunction who has been in the hospital/rehabilitation since February 11 for treatment and recovery from pneumonia and NSTEMI. He was discharged from [facility] 03/06/16 to [facility] for Tenckhoff catheter revision by Dr. Kothari and then transferred to [facility] for observation and medical management following the procedure under the care of [facility]. ESRD with peritoneal dialysis catheter malfunction s/p Tenckhoff catheter revision - s/p Tenckhoff catheter revision by Dr. Kothari - consult Dr. Salcedo - plan is to resume peritoneal dialysis tomorrow and to monitor for complications - Renal diet - PRN [place] 5/325 mg p.o. q4h PRN pain > 4 - pain denied at the time of my visit - continue Renvela from [facility] - Monitor I and O - repeat labs in a.m. and monitor renal function and electrolytes Hypertension - resume antihypertensive medications from [facility] - monitor trends in bp readings and adjust medications accordingly Recent NSTEMI during hospitalization 02/11 - 02/17 - Patient was seen by Dr. Nava - too debilitated for LHC/revascularization efforts during hospitalization - will need to f/u with Dr. Main (his outpatient drop wirer) upon discharge for possible LHC/further workup for CAD - discussed with the patient - continue Imdur, Pravastatin, Plavix and Aspirin as well as control bps as above COPD suspected during hospitalization 02/11 - 02/17 Recent pneumonia - resolved - continue Symbicort from [facility] - Albuterol nebulizer q2h PRN SOB/wheezing Debility related to prolonged hospitalization - patient improved enough to be discharged home from [facility] - consult PT while here at [facility] to prevent decline - case management consulted for assistance with discharge planning DVT prophylaxis - Heparin 5000 units subq q8h Records were reviewed from [facility] and [facility] hospital stays in February 2017 - see above for summary of pertinent details . Discussed Condition With RN and Dr. Oliver . Shyann Ortiz Mar 06, 2017 23:28
[2017-03-07] VITALS (10 sets, daily range): BP systolic 103–162; BP diastolic 50–69; PULSE 59–82; RESP 16–18; TEMP 97.8–99.2; O2SAT 94–97
[2017-03-07] MEDS: hydrALAZINE HCL 25 MG TAB PO SCH ×3 (05:49→20:16)
[2017-03-07] MEDS: ISOSORBIDE MONONITRATE 30 MG TAB PO SCH (06:39)
--- NOTE | 2017-03-07 08:07 | HHI.PR ---
Subjective Remarks Patient Melita perla says he feels very tired since yesterday. He has been nothing by mouth yesterday prior to the procedure. He reports generalized weakness. Denies having chest pain or shortness of breath. No palpitations. Denies nausea or vomiting diarrhea or constipation. He was eating in the morning, appetite is fair. Thinks is to weak to go home. Will have PT to eval. Objective Vitals Vital Signs Date Time Temp Pulse Resp B/P (MAP) Pulse Ox O2 Delivery O2 Flow Rate FiO2 03/07/17 07:34 99.0 66 18 149/66 (93) 95 03/07/17 04:00 97.9 63 16 162/65 (97) 96 03/07/17 00:00 99.2 82 16 103/63 (76) 95 03/06/17 21:33 98.2 71 18 165/69 (101) 95 03/06/17 17:15 97.7 60 16 146/62 (90) 99 Nasal Cannula 2 03/06/17 17:00 57 16 151/66 (94) 99 Nasal Cannula 2 03/06/17 16:45 55 17 141/59 (86) 98 Nasal Cannula 2 03/06/17 16:30 59 18 134/63 (86) 98 Nasal Cannula 2 03/06/17 16:14 97.6 65 22 151/65 (93) 98 Nasal Cannula 2 03/06/17 10:00 98.5 67 18 120/59 (79) 96 I/O 03/06/17 03/06/17 03/06/17 03/07/17 03/07/17 03/07/17 07:00 15:00 23:00 07:00 15:00 23:00 Intake Total 440 ml 240 ml Output Total 2015 ml Balance -1575 ml 240 ml Intake Oral 240 ml 240 ml IV Total 200 ml Output Hemodialysis 2000 ml Estimated Blood Loss 15 ml # Voids 0 0 # Bowel Movements 0 0 Result Diagram: 03/06/17 1030 Objective Remarks GENERAL: This is a pleasant 81 y/o male patient, in no apparent distress. CARDIOVASCULAR: Regular rate and rhythm without murmurs, gallops, or rubs. Bilateral lower extremities with brown discoloration in the [place]andre area and some irregular areas of pales skin that the patient states have been there for a long time and occasionally will bleed. Looks like PVD with some ulcerations in various stages of healing. RESPIRATORY: Clear to auscultation. Breath sounds equal bilaterally. No wheezes , rales, or rhonchi. GASTROINTESTINAL: Abdomen soft, non-tender, nondistended. No guarding. MUSCULOSKELETAL: Extremities without clubbing, cyanosis, or edema. No calf tenderness. NEUROLOGICAL: Awake and alert. Motor and sensory grossly within normal limits. Normal speech. A/P Problem List: (1) ESRD (end stage renal disease) on dialysis ICD Code: N18.6 - End stage renal disease; Z99.2 - Dependence on renal dialysis Status: Chronic (2) Hypertension ICD Code: I10 - Hypertension Status: Chronic (3) NSTEMI (non-ST elevated myocardial infarction) ICD Code: I21.4 - Non-ST elevation (NSTEMI) myocardial infarction Status: Resolved (4) COPD (chronic obstructive pulmonary disease) ICD Code: J44.9 - Chronic obstructive pulmonary disease, unspecified (5) Debility ICD Code: R53.81 - Other malaise Assessment and Plan Mr. Mcgovern is a pleasant 81 y/o male with a history of ESRD on PD now requiring HD due to PD catheter malfunction who has been in the hospital/rehabilitation since February 11 for treatment and recovery from pneumonia and NSTEMI. He was discharged from [facility] 03/06/[address] [facility] for Tenckhoff catheter revision by Dr. Kothari and then transferred to [facility] for observation and medical management following the procedure under the care of [facility]. ESRD with peritoneal dialysis catheter malfunction s/p Tenckhoff catheter revision - s/p Tenckhoff catheter revision by Dr. Kothari - consult Dr. Salcedo - plan is to resume peritoneal dialysis and to monitor for complications - Renal diet - PRN [place] 5/325 mg p.o. q4h PRN pain > 4 - continue Renvela from [facility] - Monitor I and O - repeat labs in a.m. and monitor renal function and electrolytes Hypertension - resume antihypertensive medications - monitor trends in bp readings and adjust medications accordingly Recent NSTEMI during hospitalization 02/11 - 02/17 - Patient was seen by Dr. Nava - too debilitated for LHC/revascularization efforts during hospitalization - will need to f/u with Dr. Main (his outpatient personnel training officer) upon discharge for possible LHC/further workup for CAD - discussed with the patient - continue Imdur, Pravastatin, Plavix and Aspirin as well as control bps as above No chest pain at this time COPD suspected during hospitalization 02/11 - 02/17 Recent pneumonia - resolved - continue Symbicort from [facility] - Albuterol nebulizer q2h PRN SOB/wheezing Debility related to prolonged hospitalization - patient improved enough to be discharged home from [facility] - consult PT while here at [facility] to prevent decline - case management consulted for assistance with discharge planning DVT prophylaxis - Heparin 5000 units subq q8h Consult Pt for eval Discussed Condition With Patient, nurse Charmaine Pride MD Mar 07, 2017 08:07
--- NOTE | 2017-03-07 09:09 | HHI.NPPN ---
Subjective Interval History s/p laparoscopic PD catheter manipulation yesterday. Will attempt PD today. Recent admission for pneumonia, and possible NSTEMI. Later was sent to [place] rehab where PD catheter malfunctioned. Review of Systems General Constitutional: Fatigue Respiratory Lungs: Cough Objective Data Data Vital Signs Date Time Temp Pulse Resp B/P (MAP) Pulse Ox O2 Delivery O2 Flow Rate FiO2 03/07/17 07:34 99.0 66 18 149/66 (93) 95 03/07/17 04:00 97.9 63 16 162/65 (97) 96 03/07/17 00:00 99.2 82 16 103/63 (76) 95 03/06/17 21:33 98.2 71 18 165/69 (101) 95 03/06/17 17:15 97.7 60 16 146/62 (90) 99 Nasal Cannula 2 03/06/17 17:00 57 16 151/66 (94) 99 Nasal Cannula 2 03/06/17 16:45 55 17 141/59 (86) 98 Nasal Cannula 2 03/06/17 16:30 59 18 134/63 (86) 98 Nasal Cannula 2 03/06/17 16:14 97.6 65 22 151/65 (93) 98 Nasal Cannula 2 03/06/17 10:00 98.5 67 18 120/59 (79) 96 -: 03/06/17 1030 Physical Exam General Appearance: Well Developed, Malnourished Neck Neck Exam: Neck Supple Pulmonary Resp Exam: Clear Bilaterally Cardiology CV Exam: Regular, Normal Sinus Rhythm Gastrointestinal/Abdomen GI Exam: Soft GI Remarks PD catheter is in place. Integumentary Skin Remarks signs of chronic ischemia Extremeties Extremities Exam: No Edema Assessment/Plan Problem List: (1) ESRD (end stage renal disease) on dialysis ICD Codes: N18.6 - End stage renal disease; Z99.2 - Dependence on renal dialysis Status: Chronic Plan: hemodialysis carried out yesterday. We will reattempt PD today. If successful, possible discharge soon. High protein diet. Nepro for supplement. (2) Anemia ICD Codes: D64.9 - Anemia, unspecified Plan: Epogen once weekly if on PD. (3) Pneumonia ICD Codes: J18.9 - Pneumonia Status: Acute (4) Hypertension ICD Codes: I10 - Essential (primary) hypertension Plan: resume medications, monitor. BP Gabriel Salcedo MD Mar 07, 2017 09:09
[2017-03-07] MEDS ORDERED: SODIUM CHLORIDE 0.9% FLUSH 10 ML FLUSH IV FLUSH PRN (09:15)
[2017-03-07] MEDS ORDERED: HEPARIN SODIUM - IV 10,000 UNITS/10 ML VIAL XX PRN (09:15)
[2017-03-07] MEDS: CITALOPRAM HYDROBROMIDE 20 MG TAB PO SCH (09:23)
[2017-03-07] MEDS: VERAPAMIL HCL 120 MG TAB PO SCH ×2 (09:23→20:17)
[2017-03-07] MEDS: DOCUSATE SODIUM 100 MG CAP PO SCH (09:24)
[2017-03-07] MEDS: PRAVASTATIN SOD 40 MG TAB PO SCH (09:24)
[2017-03-07] MEDS: HEPARIN SODIUM - SQ 10,000 UNITS/ML VIAL SQ SCH ×2 (09:24→18:06)
[2017-03-07] MEDS: SODIUM CHLORIDE 0.9% FLUSH 10 ML FLUSH IV FLUSH SCH ×2 (09:24→20:17)
[2017-03-07] MEDS: CLOPIDOGREL 75 MG TAB PO SCH (09:24)
[2017-03-07] MEDS: ASPIRIN EC 81 MG TABEC PO SCH (09:24)
[2017-03-07] MEDS: BUDESONIDE-FORMOTEROL 160/4.5 MCG INHALER INH SCH ×2 (09:25→20:16)
--- NOTE | 2017-03-07 09:32 | HHI.DCPOC ---
Discharge Care Plan Goals to Promote Your Health * To prevent worsening of your condition and complications * To maintain your health at the optimal level Directions to Meet Your Goals Take your medications as prescribed Follow your dietary instruction Follow activity as directed Keep your appointments as scheduled Take your immunizations and boosters as scheduled If your symptoms worsen call your PCP, if no PCP go to Urgent Care Center or Emergency Room Smoking is Dangerous to Your Health. Avoid second hand smoke Call the 24-hour hour crisis hotline for domestic abuse at Charmaine Pride MD Mar 07, 2017 09:32
[2017-03-07] MEDS: SEVELAMER CARBONATE 800 MG TAB PO SCH ×3 (09:49→18:07)
[2017-03-07] MEDS: CALCITRIOL 0.25 MCG CAP PO SCH (09:49)
--- NOTE | 2017-03-07 11:45 | HHI.FF ---
Face to Face Verification Diagnosis: (1) Hyperlipidemia (2) COPD (chronic obstructive pulmonary disease) (3) Debility (4) Hypertension (5) NSTEMI (non-ST elevated myocardial infarction) (6) ESRD (end stage renal disease) on dialysis Physical Therapy Order: Evaluate and Treat Home Health Nursing Order: Medical education Signs/symptoms of disease process Medication education-adverse effect Nursing assessment with vital signs I have seen patient Irineo Mcgovern on 03/07/17. My clinical findings support the need for the requested home health care services because: Ltd mobility - disease progression I certify that my clinical findings support that this patient is homebound because: Post-op weakness Charmaine Pride MD Mar 07, 2017 11:45
[2017-03-07 15:01] LABS: AUTOMATED NEUTROPHIL # 5.4 TH/MM3 (1.8-7.7); BASOPHIL # 0.1 TH/MM3 (0-0.2); EOSINOPHIL # 0.2 TH/MM3 (0-0.4); EOSINOPHIL % 2.9 % (0.0-4.0); HEMOGLOBIN 10.4 GM/DL (13.0-17.0); LYMPH % 7.5 % (9.0-44.0); LYMPHOCYTE # 0.5 TH/MM3 (1.0-4.8); MEAN CELL VOLUME 100.5 FL (80.0-100.0); MEAN CORPUSCULAR HEMOGLOBIN 32.7 PG (27.0-34.0); MEAN CORPUSCULAR HGB CONC 32.5 % (32.0-36.0); MEAN PLATELET VOLUME 8.2 FL (7.0-11.0); MONO % 8.5 % (0.0-8.0); MONOCYTE # 0.6 TH/MM3 (0-0.9); NEUT % 80.1 % (16.0-70.0); PLATELET COUNT 78 TH/MM3 (150-450); RED BLOOD COUNT 3.19 MIL/MM3 (4.50-5.90); RED CELL DISTRIBUTION WIDTH 17.2 % (11.6-17.2); WHITE BLOOD COUNT 6.7 TH/MM3 (4.0-11.0)
[2017-03-07 15:11] LABS: ALBUMIN 2.5 GM/DL (3.4-5.0); AST (GOT) 20 U/L (15-37); BICARBONATE 31.6 MEQ/L (21.0-32.0); BLOOD UREA NITROGEN 34 MG/DL (7-18); CALCIUM 8.4 MG/DL (8.5-10.1); CHLORIDE 104 MEQ/L (98-107); CREATININE 6.14 MG/DL (0.60-1.30); GLOMERULAR FILTRATION RATE 9 ML/MIN (>89); GLUCOSE,RANDOM 124 MG/DL (74-106); SODIUM (NA) 143 MEQ/L (136-145)
[2017-03-07 15:15] LABS: ALKALINE PHOSPHATASE 44 U/L (45-117); ALT (GPT) 19 U/L (12-78); TOTAL BILIRUBIN ADULT 0.3 MG/DL (0.2-1.0); TOTAL PROTEIN 5.6 GM/DL (6.4-8.2)
[2017-03-07] MEDS ORDERED: oxyCODONE/ACETAMINOPHEN 7.5 MG/325 MG TAB PO PRN (17:15)
[2017-03-07] MEDS ORDERED: PSYLLIUM HUSK SF 3.4 GM in 5.8 GM PKT PO ONE (17:15)
[2017-03-07] MEDS ORDERED: MEGESTROL ACETATE SUSP 400 MG/10 ML CUP PO ONE (17:15)
--- NOTE | 2017-03-07 17:18 | HHI.PR ---
Subjective Remarks Post revision of peritoneal dialysis catheter. Poor appetite. Pain not fully controlled on [place]. No other complaints. Objective Vital Signs Date Time Temp Pulse Resp B/P (MAP) Pulse Ox O2 Delivery O2 Flow Rate FiO2 03/07/17 15:45 97.8 61 18 106/50 (68) 94 03/07/17 11:39 98.3 68 18 133/53 (79) 94 03/07/17 10:15 95 Nasal Cannula 2.00 03/07/17 10:14 95 Nasal Cannula 2.00 03/07/17 07:34 99.0 66 18 149/66 (93) 95 03/07/17 04:00 97.9 63 16 162/65 (97) 96 03/07/17 00:00 99.2 82 16 103/63 (76) 95 03/06/17 21:33 98.2 71 18 165/69 (101) 95 03/06/17 17:15 97.7 60 16 146/62 (90) 99 Nasal Cannula 2 I/O 03/06/17 03/06/17 03/06/17 03/07/17 03/07/17 03/07/17 07:00 15:00 23:00 07:00 15:00 23:00 Intake Total 440 ml 240 ml Output Total 2015 ml Balance -1575 ml 240 ml Intake Oral 240 ml 240 ml IV Total 200 ml Output Hemodialysis 2000 ml Estimated Blood Loss 15 ml # Voids 0 0 # Bowel Movements 0 0 Result Diagram: 03/07/17 1315 03/07/17 1305 Objective Remarks GENERAL: NAD, A&Ox3 HEAD: Normocephalic. NECK: Supple, trachea midline. No lymphadenopathy. EYES: No scleral icterus. No injection or drainage. CARDIOVASCULAR: Regular rate and rhythm without murmurs, gallops, or rubs. RESPIRATORY: Breath sounds equal bilaterally. No accessory muscle use. GASTROINTESTINAL: Abdomen soft, non-tender, nondistended. MUSCULOSKELETAL: No cyanosis, or edema. SKIN: Warm and dry. NEURO: No focal neurological deficitis. A/P Problem List: (1) Acute on chronic kidney failure ICD Code: N17.9 - Acute kidney failure, unspecified; N18.9 - Chronic kidney disease, unspecified Status: Acute Assessment and Plan Mr. Mcgovern is a pleasant 81 y/o male admitted for peritoneal dialysis catheter revision Faulty peritoneal dialysis catheter Revision completed Plan to resume peritoneal dialysis seen Nephrology following [place] transitioned to Percocet due to lack of full pain control Follow renal function and electrolytes Hypertension Continue baseline treatment Follow blood pressures Adjust treatments as needed Status post an STEMI Follow with cardiology as an outpatient Continue indoor Continue pravastatin Continue Plavix Continue aspirin COPD Continue Symbicort Continue albuterol Poor appetite Resume home dosings of Megace Physical debility Continue physical therapy Plan for physical therapy with home health at time of discharge DVT prophylaxis Heparin Timmy Dyson MD Mar 07, 2017 17:18
[2017-03-07] MEDS: LATANOPROST 0.005% OPHT SOLN 2.5 ML BTL EACH EYE SCH (20:15)
[2017-03-07] MEDS: oxyCODONE/ACETAMINOPHEN 5 MG/325 MG TAB PO PRN (20:16)
[2017-03-07] MEDS: TAMSULOSIN HCL 0.4 MG CAP PO SCH (20:17)
[2017-03-07] MEDS: MELATONIN 5 MG TAB PO PRN (20:17)
[2017-03-08] VITALS (10 sets, daily range): BP systolic 121–162; BP diastolic 54–76; PULSE 59–68; RESP 18; TEMP 95.8–98.9; O2SAT 94–99
[2017-03-08] MEDS: HEPARIN SODIUM - SQ 10,000 UNITS/ML VIAL SQ SCH ×3 (00:27→17:44)
[2017-03-08] MEDS: hydrALAZINE HCL 25 MG TAB PO SCH ×3 (05:42→20:22)
[2017-03-08] MEDS: ISOSORBIDE MONONITRATE 30 MG TAB PO SCH (05:42)
[2017-03-08 06:55] LABS: AUTOMATED NEUTROPHIL # 5.5 TH/MM3 (1.8-7.7); BASOPHIL # 0.1 TH/MM3 (0-0.2); BASOPHIL % 0.7 % (0.0-2.0); EOSINOPHIL # 0.3 TH/MM3 (0-0.4); EOSINOPHIL % 4.1 % (0.0-4.0); HEMATOCRIT 31.3 % (39.0-51.0); HEMOGLOBIN 10.1 GM/DL (13.0-17.0); LYMPH % 11.1 % (9.0-44.0); LYMPHOCYTE # 0.8 TH/MM3 (1.0-4.8); MEAN CELL VOLUME 100.2 FL (80.0-100.0); MEAN CORPUSCULAR HEMOGLOBIN 32.3 PG (27.0-34.0); MEAN CORPUSCULAR HGB CONC 32.3 % (32.0-36.0); MEAN PLATELET VOLUME 8.3 FL (7.0-11.0); MONO % 9.9 % (0.0-8.0); MONOCYTE # 0.7 TH/MM3 (0-0.9); NEUT % 74.2 % (16.0-70.0); PLATELET COUNT 83 TH/MM3 (150-450); RED BLOOD COUNT 3.12 MIL/MM3 (4.50-5.90); WHITE BLOOD COUNT 7.4 TH/MM3 (4.0-11.0)
[2017-03-08 07:31] LABS: ALBUMIN 2.5 GM/DL (3.4-5.0); ALT (GPT) 13 U/L (12-78); AST (GOT) 19 U/L (15-37); BICARBONATE 30.2 MEQ/L (21.0-32.0); BLOOD UREA NITROGEN 42 MG/DL (7-18); CALCIUM 8.4 MG/DL (8.5-10.1); CHLORIDE 104 MEQ/L (98-107); CREATININE 7.31 MG/DL (0.60-1.30); GLOMERULAR FILTRATION RATE 7 ML/MIN (>89); GLUCOSE,RANDOM 76 MG/DL (74-106); SODIUM (NA) 141 MEQ/L (136-145)
[2017-03-08 07:43] LABS: ALKALINE PHOSPHATASE 44 U/L (45-117); TOTAL BILIRUBIN ADULT 0.3 MG/DL (0.2-1.0); TOTAL PROTEIN 5.8 GM/DL (6.4-8.2)
--- NOTE | 2017-03-08 08:55 | HHI.NPPN ---
Subjective Interval History PD catheter worked yesterday. To be discharged. Review of Systems General Constitutional: Fatigue Respiratory Lungs: Cough Objective Data Data Vital Signs Date Time Temp Pulse Resp B/P (MAP) Pulse Ox O2 Delivery O2 Flow Rate FiO2 03/08/17 04:00 98.0 62 18 162/69 (100) 99 03/08/17 03:48 59 03/08/17 00:00 98.9 68 18 157/76 (103) 96 03/07/17 23:47 59 03/07/17 21:48 Nasal Cannula 2.00 03/07/17 21:16 18 03/07/17 20:15 66 03/07/17 20:00 98.9 67 18 155/69 (97) 97 03/07/17 19:15 95 Nasal Cannula 2.00 03/07/17 15:45 97.8 61 18 106/50 (68) 94 03/07/17 11:39 98.3 68 18 133/53 (79) 94 03/07/17 10:15 95 Nasal Cannula 2.00 03/07/17 10:14 95 Nasal Cannula 2.00 -: 03/08/17 0510 03/08/17 0510 Physical Exam General Appearance: Well Developed, Malnourished Neck Neck Exam: Neck Supple Pulmonary Resp Exam: Clear Bilaterally Cardiology CV Exam: Regular, Normal Sinus Rhythm Gastrointestinal/Abdomen GI Exam: Soft GI Remarks PD catheter is in place. Integumentary Skin Remarks signs of chronic ischemia Extremeties Extremities Exam: No Edema Assessment/Plan Problem List: (1) ESRD (end stage renal disease) on dialysis ICD Codes: N18.6 - End stage renal disease; Z99.2 - Dependence on renal dialysis Status: Chronic Plan: PD catheter worked well yesterday. Needs removal Vascath before discharge. High protein diet. Nepro for supplement. (2) Anemia ICD Codes: D64.9 - Anemia, unspecified Plan: Epogen once weekly if on PD. (3) Pneumonia ICD Codes: J18.9 - Pneumonia Status: Acute (4) Hypertension ICD Codes: I10 - Essential (primary) hypertension Plan: resume medications, monitor. BP Gabriel Salcedo MD Mar 08, 2017 08:55
[2017-03-08] MEDS: PSYLLIUM HUSK SF 3.4 GM in 5.8 GM PKT PO SCH (09:00)
[2017-03-08] MEDS: MEGESTROL ACETATE SUSP 400 MG/10 ML CUP PO SCH (10:11)
[2017-03-08] MEDS: CLOPIDOGREL 75 MG TAB PO SCH (10:12)
[2017-03-08] MEDS: VERAPAMIL HCL 120 MG TAB PO SCH ×2 (10:12→20:22)
[2017-03-08] MEDS: CALCITRIOL 0.25 MCG CAP PO SCH (10:12)
[2017-03-08] MEDS: DOCUSATE SODIUM 100 MG CAP PO SCH (10:12)
[2017-03-08] MEDS: CITALOPRAM HYDROBROMIDE 20 MG TAB PO SCH (10:12)
[2017-03-08] MEDS: PRAVASTATIN SOD 40 MG TAB PO SCH (10:12)
[2017-03-08] MEDS: ASPIRIN EC 81 MG TABEC PO SCH (10:12)
[2017-03-08] MEDS: SODIUM CHLORIDE 0.9% FLUSH 10 ML FLUSH IV FLUSH SCH ×2 (10:13→20:23)
[2017-03-08] MEDS: BUDESONIDE-FORMOTEROL 160/4.5 MCG INHALER INH SCH ×2 (10:15→20:22)
[2017-03-08] MEDS: oxyCODONE/ACETAMINOPHEN 5 MG/325 MG TAB PO PRN (10:21)
[2017-03-08] MEDS: SEVELAMER CARBONATE 800 MG TAB PO SCH ×3 (10:21→17:44)
--- NOTE | 2017-03-08 18:28 | HHI.DS ---
Discharge Summary Admission Date Mar 06, 2017 at 20:21 Discharge Date: Mar 09, 2017 Admitting Diagnosis ESRD with peritoneal dialysis catheter malfunction s/p tenckhoff catheter revision (1) ESRD (end stage renal disease) on dialysis ICD Code: N18.6 - End stage renal disease; Z99.2 - Dependence on renal dialysis Status: Chronic (2) Hypertension ICD Code: I10 - Hypertension Status: Chronic (3) NSTEMI (non-ST elevated myocardial infarction) ICD Code: I21.4 - Non-ST elevation (NSTEMI) myocardial infarction Status: Resolved (4) COPD (chronic obstructive pulmonary disease) ICD Code: J44.9 - Chronic obstructive pulmonary disease, unspecified (5) Debility ICD Code: R53.81 - Other malaise Procedures Revision of peritoneal dialysis catheter Brief History - From Admission Mr. Mcgovern is a pleasant 81 y/o male with a history of ESRD on PD now requiring HD due to PD catheter malfunction who has been in the hospital/rehabilitation since February 11 for treatment and recovery from pneumonia and NSTEMI. He was discharged from [facility] 03/06/16 to [facility] for Tenckhoff catheter revision by Dr. Kothari and then transferred to [facility] for observation and medical management following the procedure under the care of [facility]. The patient is seen on the 6N. He is lying in bed and denies post-procedural pain. Also denies chest pain or shortness of breath. He reports some generalized weakness related to prolonged hospitalization with pneumonia. He denies any fevers, chills, nausea, vomiting, or diarrhea. CBC/BMP: 03/08/17 0510 03/08/17 0510 Significant Findings Laboratory Tests Test 03/06/17 10:30 03/07/17 13:05 03/07/17 13:15 03/08/17 05:10 Blood Urea Nitrogen 34 MG/DL (7-18) 42 MG/DL (7-18) Creatinine 6.14 MG/DL (0.60-1.30) 7.31 MG/DL (0.60-1.30) Random Glucose 124 MG/DL (74-106) Total Protein 5.6 GM/DL (6.4-8.2) 5.8 GM/DL (6.4-8.2) Albumin 2.5 GM/DL (3.4-5.0) 2.5 GM/DL (3.4-5.0) Calcium Level 8.4 MG/DL (8.5-10.1) 8.4 MG/DL (8.5-10.1) Alkaline Phosphatase 44 U/L (45-117) 44 U/L (45-117) Estimat Glomerular Filtration Rate 9 ML/MIN (>89) 7 ML/MIN (>89) Red Blood Count 3.19 MIL/MM3 (4.50-5.90) 3.12 MIL/MM3 (4.50-5.90) Hemoglobin 10.4 GM/DL (13.0-17.0) 10.1 GM/DL (13.0-17.0) Hematocrit 32.0 % (39.0-51.0) 31.3 % (39.0-51.0) Mean Corpuscular Volume 100.5 FL (80.0-100.0) 100.2 FL (80.0-100.0) Platelet Count 78 TH/MM3 (150-450) 83 TH/MM3 (150-450) Neutrophils (%) (Auto) 80.1 % (16.0-70.0) 74.2 % (16.0-70.0) Lymphocytes (%) (Auto) 7.5 % (9.0-44.0) Monocytes (%) (Auto) 8.5 % (0.0-8.0) 9.9 % (0.0-8.0) Lymphocytes # (Auto) 0.5 TH/MM3 (1.0-4.8) 0.8 TH/MM3 (1.0-4.8) Platelet Estimate LOW (NORMAL) LOW (NORMAL) Eosinophils (%) (Auto) 4.1 % (0.0-4.0) PE at Discharge GENERAL: This is a pleasant 81 y/o male patient, in no apparent distress. CARDIOVASCULAR: Regular rate and rhythm without murmurs, gallops, or rubs. Bilateral lower extremities with brown discoloration in the alexandre area and some irregular areas of pales skin that the patient states have been there for a long time and occasionally will bleed. Looks like PVD with some ulcerations in various stages of healing. RESPIRATORY: Clear to auscultation. Breath sounds equal bilaterally. No wheezes , rales, or rhonchi. GASTROINTESTINAL: Abdomen soft, non-tender, nondistended. No guarding. MUSCULOSKELETAL: Extremities without clubbing, cyanosis, or edema. No calf tenderness. NEUROLOGICAL: Awake and alert. Motor and sensory grossly within normal limits. Normal speech. Hospital Course 81M with ESRD who was undergoing peritoneal dialysis at a rehab center. The access failed and he was admitted for temporary dialysis via vas catheter. Once PD catheter was replaced, it was recommended he do a trial treatment while here at the hospital. He is not yet finished with his treatment, and his is unable to take him home tonight. Discharge will be set now for first thing in the a.m. Pt Condition on Discharge: Stable Discharge Disposition: Disch w/ Home Health Serv Discharge Time: <= 30 minutes Discharge Instructions DIET: Follow Instructions for: Renal Failure Diet, High Protein Diet Activities you can perform: Regular-No Restrictions Grey Dyson MD Mar 08, 2017 18:28
[2017-03-08] MEDS: LATANOPROST 0.005% OPHT SOLN 2.5 ML BTL EACH EYE SCH (20:22)
[2017-03-08] MEDS: TAMSULOSIN HCL 0.4 MG CAP PO SCH (20:22)
[2017-03-09] VITALS: BP 152/67; PULSE 66; RESP 18; TEMP 98.3; O2SAT 96
[2017-03-09] MEDS: HEPARIN SODIUM - SQ 10,000 UNITS/ML VIAL SQ SCH ×2 (00:58→08:46)
[2017-03-09 03:45] VITALS: PULSE 70
[2017-03-09 04:00] VITALS: BP 156/75; PULSE 66; RESP 18; TEMP 97.6; O2SAT 96
[2017-03-09] MEDS: hydrALAZINE HCL 25 MG TAB PO SCH ×2 (06:21→13:25)
[2017-03-09] MEDS: ISOSORBIDE MONONITRATE 30 MG TAB PO SCH (06:21)
[2017-03-09 08:00] VITALS: BP 189/78; PULSE 61; RESP 17; TEMP 96.2; O2SAT 95
[2017-03-09] MEDS: CALCITRIOL 0.25 MCG CAP PO SCH (08:45)
[2017-03-09] MEDS: VERAPAMIL HCL 120 MG TAB PO SCH (08:45)
[2017-03-09] MEDS: CLOPIDOGREL 75 MG TAB PO SCH (08:45)
[2017-03-09] MEDS: DOCUSATE SODIUM 100 MG CAP PO SCH (08:45)
[2017-03-09] MEDS: PSYLLIUM HUSK SF 3.4 GM in 5.8 GM PKT PO SCH (08:45)
[2017-03-09] MEDS: PRAVASTATIN SOD 40 MG TAB PO SCH (08:46)
[2017-03-09] MEDS: SEVELAMER CARBONATE 800 MG TAB PO SCH ×2 (08:46→12:36)
[2017-03-09] MEDS: CITALOPRAM HYDROBROMIDE 20 MG TAB PO SCH (08:46)
[2017-03-09] MEDS: ASPIRIN EC 81 MG TABEC PO SCH (08:46)
[2017-03-09] MEDS: MEGESTROL ACETATE SUSP 400 MG/10 ML CUP PO SCH (08:46)
[2017-03-09] MEDS: SODIUM CHLORIDE 0.9% FLUSH 10 ML FLUSH IV FLUSH SCH (08:49)
[2017-03-09] MEDS: BUDESONIDE-FORMOTEROL 160/4.5 MCG INHALER INH SCH (08:49)
[2017-03-09] MEDS: oxyCODONE/ACETAMINOPHEN 5 MG/325 MG TAB PO PRN ×2 (08:55→13:25)
--- NOTE | 2017-03-09 09:57 | HHI.NPPN ---
Subjective General Problems: Anemia Renal Failure: Chronic, End Stage Renal Disease Interval History PD is going well. Pt to be discharged today. (Jania Gallagher) Review of Systems General Constitutional: Fatigue (Jania Gallagher) Respiratory Lungs: Cough (Jania Gallagher) Objective Data Data Vital Signs Date Time Temp Pulse Resp B/P (MAP) Pulse Ox O2 Delivery O2 Flow Rate FiO2 03/09/17 04:00 97.6 66 18 156/75 (102) 96 03/09/17 03:45 70 03/09/17 00:00 98.3 66 18 152/67 (95) 96 03/08/17 22:40 Nasal Cannula 2.00 03/08/17 20:00 98.2 63 18 149/72 (97) 95 03/08/17 19:59 94 21 03/08/17 19:45 68 03/08/17 17:27 61 03/08/17 16:00 95.8 62 18 135/55 (81) 95 03/08/17 12:00 96.6 67 18 121/54 (76) 94 (Jania Gallagher) -: 03/08/17 0510 03/08/17 0510 Tubes & Lines: Vas-Cath, Tenckhoff Catheter (Jania Gallagher) Physical Exam General Appearance: Well Developed, Comfortable, Malnourished (Jania Gallagher) Throat Throat Exam: Oral Mucosa [place] & Moist (Jania Gallagher) Neck Neck Exam: Neck Supple (Jania Gallagher) Pulmonary Resp Exam: Clear Bilaterally (Jania Gallagher) Cardiology CV Exam: Regular, Normal Sinus Rhythm (Jania Gallagher) Gastrointestinal/Abdomen GI Exam: Soft, Bowel Sounds Present GI Remarks slightly tender at surgical site (Jania Gallagher) Musculoskeletal MS Exam: Normal Gait, Good Strength (Jania Gallagher) Integumentary Skin Exam: Warm, Dry (Jania Gallagher) Extremeties Extremities Exam: No Edema (Jania Gallagher) Neurologic Neuro Exam: Alert, Awake, Oriented, Speech Clear, Moving All Extremities (Jania Gallagher) Psychiatric Psych Exam: Appropriate Responses (Jania Gallagher) Assessment/Plan Discussed Condition With: Patient, Spouse Assessment Summary: Anemia of CKD, Hypertension, End Stage Renal Disease Problem List: (1) ESRD (end stage renal disease) on dialysis ICD Codes: N18.6 - End stage renal disease; Z99.2 - Dependence on renal dialysis Status: Chronic Plan: Resume PD at discharge. The catheter is functioning properly. Vascath removal today. He will be followed in PD clinic. High protein diet. Nepro for supplement. (2) Anemia ICD Codes: D64.9 - Anemia, unspecified Plan: Give a dose of Epogen today. (3) Pneumonia ICD Codes: J18.9 - Pneumonia Status: Acute (4) Hypertension ICD Codes: I10 - Essential (primary) hypertension Plan: resume medications, monitor. BP Plan Stable for discharge with C. (Jania Gallagher) Plan patient was seen and examined. Agree with above assessment and plan. (Gabriel Salcedo MD) Jania Gallagher Mar 09, 2017 09:57 Gabriel Salcedo MD Mar 09, 2017 15:33
[2017-03-09 12:00] VITALS: BP 122/58; PULSE 61; RESP 18; TEMP 96.3; O2SAT 95
[2017-03-09] MEDS ORDERED: EPOETIN ALFA 20,000 UNITS/ML VIAL SQ ONE (12:00)
[2017-03-09 13:18] VITALS: O2SAT 96
--- NOTE | 2017-03-09 18:11 | HHI.PR ---
Subjective Remarks Pt remained till this morning, his original plan was to go home, but this morning he asked if he could return to [facility] Objective Vitals Vital Signs Date Time Temp Pulse Resp B/P (MAP) Pulse Ox O2 Delivery O2 Flow Rate FiO2 03/09/17 13:18 96 03/09/17 12:00 96.3 61 18 122/58 (79) 95 03/09/17 08:00 96.2 61 17 189/78 (115) 95 03/09/17 04:00 97.6 66 18 156/75 (102) 96 03/09/17 03:45 70 03/09/17 00:00 98.3 66 18 152/67 (95) 96 03/08/17 22:40 Nasal Cannula 2.00 03/08/17 20:00 98.2 63 18 149/72 (97) 95 03/08/17 19:59 94 21 03/08/17 19:45 68 I/O 03/08/17 03/08/17 03/08/17 03/09/17 03/09/17 03/09/17 06:59 14:59 22:59 06:59 14:59 22:59 Intake Total 480 ml 600 ml 480 ml 240 ml Balance 480 ml 600 ml 480 ml 240 ml Intake Oral 480 ml 600 ml 480 ml 240 ml # Voids 1 0 1 1 # Bowel Movements 0 0 0 0 Result Diagram: 03/08/17 0510 03/08/17 0510 Procedures Revision of peritoneal dialysis catheter A/P Problem List: (1) ESRD (end stage renal disease) on dialysis ICD Code: N18.6 - End stage renal disease; Z99.2 - Dependence on renal dialysis Status: Chronic (2) Hypertension ICD Code: I10 - Hypertension Status: Chronic (3) NSTEMI (non-ST elevated myocardial infarction) ICD Code: I21.4 - Non-ST elevation (NSTEMI) myocardial infarction Status: Resolved (4) COPD (chronic obstructive pulmonary disease) ICD Code: J44.9 - Chronic obstructive pulmonary disease, unspecified Status: Chronic (5) Debility ICD Code: R53.81 - Other malaise Assessment and Plan Pt discharged yesterday for a.m., but decided this morning he wanted to go back to [place]. It was arranged for him. Grey Dyson MD Mar 09, 2017 18:11
--- NOTE | 2017-03-10 08:32 | MP ---
cc: JORDEN CONNORS JAMES DATE OF SURGERY 03/06/2017 PREOPERATIVE DIAGNOSIS Dysfunctional peritoneal dialysis catheter. POSTOPERATIVE DIAGNOSIS Dysfunctional peritoneal dialysis catheter. OPERATIVE PROCEDURE Laparoscopic revision of peritoneal dialysis catheter. SURGEON Avery Kothari MD ANESTHESIA General endotracheal/local DESCRIPTION OF THE OPERATIVE PROCEDURE With the patient in the supine position, general endotracheal anesthesia was induced. The abdomen was prepped with Betadine and draped in a sterile fashion. One gram of Ancef was administered intravenously. Following a protocol time-out, the skin and subcutaneous tissue surrounding the old left subcostal trocar placement scar was infiltrated with 0.5% Marcaine with epinephrine. The scar was reincised. The anterior rectus sheath was incised. The rectus fibers . The posterior rectus sheath and peritoneum elevated and a small peritoneotomy performed through which a 5 mm sheath was bluntly advanced into the peritoneal space. The abdomen was insufflated with carbon dioxide. The coiled portion of the peritoneal dialysis catheter was buried deep within the pelvic cul-de-sac. A separate 5 mm Surgiport was placed along the left lateral rectus margin and the coiled portion of the catheter retracted free of the pelvis. There did not appear to be any fibrinous adhesions or obstructions within the catheter proper which flushed quite easily. The catheter was elevated into the left lower quadrant and suspended from the anterior abdominal wall with a loop suture of 4-0 Prolene. One liter of saline was allowed to flow into the peritoneal space and drain freely confirmed appropriate catheter function. The abdomen was desufflated. The left subcostal peritoneotomy was closed with interrupted 4-0 Monocryl. The rectus incision closed with an interrupted 0-PDS and skin incision reapproximated with continuous 5-0 Prolene. Steri-Strips and sterile gauze dressing applied. No operative complications. The patient returned to the recovery room in stable condition having tolerated the procedure well. MD VIRY Tenorio/EUGENE /4:15 PM /8:22 AM
== END 2017-03-09 14:35 ==
LOC: HSDC 09:33 → N06A 20:21
PROVIDERS: ADMIT Family Medicine; ATTEND Family Medicine
DX: T85.611A Breakdown (mechanical) of intraperitoneal dialysis catheter, initial encounter (principal); I12.0 Hypertensive chronic kidney disease with stage 5 chronic kidney disease or end stage renal disease; N18.6 End stage renal disease; J18.9 Pneumonia, unspecified organism; D63.1 Anemia in chronic kidney disease; R53.81 Other malaise; I21.4 Non-ST elevation (NSTEMI) myocardial infarction; G47.33 Obstructive sleep apnea (adult) (pediatric); J44.9 Chronic obstructive pulmonary disease, unspecified; Y81.2 Prosthetic and other implants, materials and accessory general- and plastic-surgery devices associated with adverse incidents; Z99.2 Dependence on renal dialysis
CPT/HCPCS: 00840; 49325; 80053; 84132; 85025; 96360; 96372; 96374; 97110; 97116; 97161; G0257; G0378; G8987; G8988; J0690; J1580; J1644; J3010; J7030; J7040; Q4081; 90935; 90945

== ENCOUNTER 2017-05-21 13:49 | Inpatient (IN) | payer MEDICARE ==
[2017-05-21] VITALS (7 sets, daily range): BP systolic 99–113; BP diastolic 52–64; PULSE 54–65; RESP 16–25; TEMP 97.2–98.4; O2SAT 91–94
[~2017-05-21] VITALS: Ht 160 cm; Wt 72.5 kg
[~2017-05-21 13:49] MED LIST changes: +ACET325T15 PO; +AMLO10 PO; +ATOR80TA45 PO; -AZIT250T3 PO; -Albuterol Neb NEB; +BISA10R RECTAL; -Budeson-Formot 160-4.5 Mcg Inh INH; +CARV3.125 PO; +CHOL4POW4 PO; +CRIS5OIN TOPICAL; -D3400CAP; +FURO80TA PO; +GABA100C4 PO; +HOSP BED1; +HYDR-3798 PO; -HYDR-3799 PO; +IPRASOL INH; +LACT PO; +LEVE250 PO; +LEVE500 PO; -LOVA40TA PO; -MELA5 PO; -MULT-267; -Megestrol Liq PO; +NITR1SUB3 SL; -NORC5TAB PO; -Nystatin Powder TOPICAL; -TAMS0.4C4 PO; -THERTAB15 PO; -VENTAER INH; -VERA120T3 PO; -WHEEMIS3
--- NOTE | 2017-05-21 14:14 | PD ---
HPI Chief Complaint: Shortness of breath Time Seen by Provider: 13:53 Travel History International Travel<30 days: No Contact w/Intl Traveler<30days: No Traveled to known affect area: No History of Present Illness HPI The patient is a 82-year-old male who presents to the emergency department from a rehabilitation center in [place], [place] by EMS for hypotension and shortness of breath. According to EMS the patient was at rehab earlier today performing exercises when it was noted he was hypoxic with an O2 saturation in the 80s with a good waveform. When EMS arrived the patient's oxygen saturation was in the 90s on 3 L, the patient was just started on oxygen 3 days ago. EMS states when they took the patient's blood pressure was low with a systolic in the 80s. The patient has no complaints of chest pain, shortness of breath, nausea, vomiting, abdominal pain, or generalized weakness. 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 The patient also undergoes peritoneal dialysis every night for approximately 6 hours. He does make urine, however, it is minimal. He denies any current fever, chills, or sweats. Patient is currently asymptomatic. PFSH Past Medical History Hx Anticoagulant Therapy: Yes Arthritis: No Asthma: No Autoimmune Disease: No Anxiety: No Depression: No Heart Rhythm Problems: No Cancer: No Cardiovascular Problems: Yes (Cardiac cath 03/2017, stent placement) High Cholesterol: Yes Chemotherapy: No Chest Pain: No Congestive Heart Failure: No COPD: Yes Cerebrovascular Accident: Yes Diabetes: No Endocrine: No GERD: No Genitourinary: No Hiatal Hernia: No Hypertension: Yes Immune Disorder: No Kidney Stones: No Musculoskeletal: No Neurologic: Yes Psychiatric: No Reproductive: No Respiratory: Yes (COPD, recent pneumonia) Migraines: No Radiation Therapy: No Renal Failure: Yes (Peritoneal Dialysis) Seizures: Yes (MAR 2017) Sickle Cell Disease: No Sleep Apnea: Yes (CPAP used at night) Thyroid Disease: No Ulcer: No Past Surgical History Abdominal Surgery: Yes (Peritoneal Dialysis catheter ) AICD: No Arteriovenous Shunt: No Body Medical Devices: abdominal peritoneal dialysis catheter Cardiac Surgery: Yes (cardiac stents ) Ear Surgery: No Endocrine Surgery: No Eye Surgery: No Genitourinary Surgery: No Gynecologic Surgery: No Insulin Pump: No Joint Replacement: No Oral Surgery: No Pacemaker: No Thoracic Surgery: No Other Surgery: Yes Social History Alcohol Use: No Tobacco Use: No Substance Use: No Allergies-Medications (Allergen,Severity, Reaction): Coded Allergies: No Known Allergies (Unverified Allergy, Unknown, 05/21/17) Reported Meds & Prescriptions Reported Meds & Active Scripts Active Acidophilus/l-Sporogenes (Lactobacillus Acidophilus) 35 Million Cell-25 Million Cell Tab 1 Tab PO TID Bisac-Evac Supp (Bisacodyl) 10 Mg Supp 10 Mg RECTAL DAILY PRN Tessalon Perles (Benzonatate) 100 Mg Cap 100 Mg PO BID PRN Furosemide 80 Mg Tab 80 Mg PO DAILY Renvela (Sevelamer Carbonate) 800 Mg Tab 800 Mg PO TIDAC Keppra (Levetiracetam) 250 Mg Tab 250 Mg PO HS Gabapentin 100 Mg Cap 100 Mg PO BID Coreg (Carvedilol) 3.125 Mg Tab 3.125 Mg PO Q12HR Norvasc (Amlodipine Besylate) 10 Mg Tab 10 Mg PO DAILY Hydralazine HCl 10 Mg Tablet 10 Mg PO Q8HR Cholestyramine 4 Gm/Pkt Powd 4 Gm PO DAILY 30 Days 1 packet contains 4 grams of cholestyramine. Nitroglycerin SL (Nitroglycerin) 0.4 Mg Subl 0.4 Mg SL DIRECTED PRN ONE TABLET UNDER THE TONGUE NEEDED FOR CHEST PAIN, MAY REPEAT EVERY FIVE MINUTES FOR A TOTAL OF 3 DOSES OR CALL 911 IF NO RELIEF Eucrisa Topical (Crisaborole Topical) 2 % Oin 1 Applic TOPICAL BID Atorvastatin (Atorvastatin Calcium) 80 Mg Tab 80 Mg PO HS Duoneb (Ipratropium-Albuterol Neb) 0.5-2.5 Mg/3 Ml Neb 1 Nebule INH Q6HR NEB Eq Acetaminophen (Acetaminophen) 325 Mg Tab 650 Mg PO Q4H PRN 30 Days Celexa (Citalopram Hydrobromide) 20 Mg Tab 20 Mg PO DAILY Aspirin DR (Aspirin) 81 Mg Tabdr 81 Mg PO DAILY Isosorbide Mononitrate ER (Isosorbide Mononitrate) 30 Mg Hayder 30 Mg PO DAILY Clopidogrel (Clopidogrel Bisulfate) 75 Mg Tab 75 Mg PO DAILY Calcitriol 0.25 Mcg Cap 0.25 Mcg PO DAILY Travatan Z Opth Drops (Travoprost) 0.004 % Soln 1 Drop EACH EYE HS Hospital Bed - Electric 1 Ea Ea Ea .XX DIRECTED Reported Doxycycline Hyclate 100 Mg Cap 100 Mg PO BID Keppra (Levetiracetam) 500 Mg Tab 500 Mg PO BID Review of Systems Except as stated in HPI: all other systems reviewed are Neg General / Constitutional: No: Fever HENT: No: Lightheadedness Cardiovascular: No: Chest Pain or Discomfort, Diaphoresis, Syncope Respiratory: Positive: Other (Hypoxic per EMS), No: Shortness of Breath Gastrointestinal: No: Nausea, Vomiting, Abdominal Pain Musculoskeletal: Positive: Weakness (Weakness after previous CVA) Neurologic: Positive: Focal Abnormalities (Difficulties right upper extremity since previous CVA), No: Dizziness, Syncope Physical Exam Narrative GENERAL: Awake, alert, pleasant 82-year-old male who appears his stated age and is in no acute respiratory distress. SKIN: Focused skin assessment warm/dry. HEAD: Atraumatic. Normocephalic. EYES: No injection or drainage. ENT: No nasal bleeding or discharge. Mucous membranes pink and moist. NECK: Trachea midline. No JVD. CARDIOVASCULAR: Regular rate and rhythm. No murmur appreciated. RESPIRATORY: No accessory muscle use. C few rhonchi in the right base.. GASTROINTESTINAL: Abdomen soft, non-tender, nondistended. Peritoneal dialysis catheter noted. Some old appearing ecchymosis right lateral abdomen. MUSCULOSKELETAL: Right upper extremity is abducted and flexed at the elbow. Lower extremities show muscle wasting with chronic venous stasis changes. NEUROLOGICAL: Awake and alert. No obvious cranial nerve deficits. Motor grossly within normal limits. Normal speech. Alert and oriented to person and place. Back: The patient has a stage II sacral decubitus ulcer. PSYCHIATRIC: Appropriate mood and affect; insight and judgment normal. Data Data Last Documented VS Vital Signs Date Time Temp Pulse Resp B/P (MAP) Pulse Ox O2 Delivery O2 Flow Rate FiO2 05/21/17 16:00 60 20 110/56 (74) 92 Nasal Cannula 3.00 05/21/17 14:00 97.2 Orders Orders Complete Blood Count With Diff (05/21/17 14:01) Comprehensive Metabolic Panel (05/21/17 14:) Magnesium (Mg) (05/21/17 14:01) Iv Access Insert/Monitor (05/21/17 14:) Electrocardiogram (05/21/17 14:) Ecg Monitoring (05/21/17 14:01) Oximetry (05/21/17 14:01) Oxygen Administration (05/21/17 14:01) Chest, Single Ap (05/21/17 14:01) Sodium Chloride 0.9% Flush (Ns Flush) (05/21/17 14:15) Albuterol-Ipratropium Neb (Duoneb Neb) (05/21/17 14:15) Lidocaine Pf 4% Neb (Lidocaine Pf 4% Neb (05/21/17 14:15) Sodium Chlorid 0.9% 500 Ml Inj (Ns 500 M (05/21/17 14:15) Arterial Blood Gas (Abg) (05/21/17 ) Ct Thorax/ Chest Wo Iv Contras (05/21/17 ) Cefepime Inj (Maxipime Inj) (05/21/17 16:15) Azithromycin Inj (Zithromax Inj) (05/21/17 16:15) Admit To Inpatient (05/21/17 ) Vital Signs (Adult) Q4H (05/21/17 16:20) Activity Oob With Assistance (05/21/17 16:20) Flumer / Telemetry .CONTINUOUS (05/21/17 16:20) Diet Heart Healthy (05/21/17 Dinner) Sodium Chloride 0.9% Flush (Ns Flush) (05/21/17 16:30) Sodium Chloride 0.9% Flush (Ns Flush) (05/21/17 21:00) Basic Metabolic Panel (Bmp) (05/22/17 06:00) Complete Blood Count With Diff (05/22/17 06:00) Pt Request For Service (05/21/17 16:20) Case Management Consult (05/21/17 16:20) Naloxone Inj (Narcan Inj) (05/21/17 16:30) Inpatient Certification (05/21/17 ) Albuterol-Ipratropium Neb (Duoneb Neb) (05/21/17 16:30) Admit Order (Ed Use Only) (05/21/17 16:29) Labs Laboratory Tests Test 05/21/17 14:10 05/21/17 16:20 White Blood Count 8.1 TH/MM3 Red Blood Count 3.43 MIL/MM3 Hemoglobin 10.4 GM/DL Hematocrit 31.0 % Mean Corpuscular Volume 90.4 FL Mean Corpuscular Hemoglobin 30.4 PG Mean Corpuscular Hemoglobin Concent 33.6 % Red Cell Distribution Width 15.0 % Platelet Count 268 TH/MM3 Mean Platelet Volume 7.7 FL Neutrophils (%) (Auto) 59.5 % Lymphocytes (%) (Auto) 20.0 % Monocytes (%) (Auto) 13.3 % Eosinophils (%) (Auto) 6.0 % Basophils (%) (Auto) 1.2 % Neutrophils # (Auto) 4.8 TH/MM3 Lymphocytes # (Auto) 1.6 TH/MM3 Monocytes # (Auto) 1.1 TH/MM3 Eosinophils # (Auto) 0.5 TH/MM3 Basophils # (Auto) 0.1 TH/MM3 CBC Comment DIFF FINAL Differential Comment Blood Urea Nitrogen 62 MG/DL Creatinine 7.93 MG/DL Random Glucose 95 MG/DL Total Protein 6.6 GM/DL Albumin 2.5 GM/DL Calcium Level 9.4 MG/DL Magnesium Level 1.9 MG/DL Alkaline Phosphatase 48 U/L Aspartate Amino Transf (AST/SGOT) 18 U/L Alanine Aminotransferase (ALT/SGPT) 16 U/L Total Bilirubin 0.3 MG/DL Sodium Level 142 MEQ/L Potassium Level 3.5 MEQ/L Chloride Level 102 MEQ/L Carbon Dioxide Level 32.1 MEQ/L Anion Gap 8 MEQ/L Estimat Glomerular Filtration Rate 7 ML/MIN Blood Gas Puncture Site LT RADIAL Blood Gas Patient Temperature 98.6 Blood Gas HCO3 25 mmol/L Blood Gas Base Excess 0.8 mmol/L Blood Gas Oxygen Saturation 84 % Arterial Blood pH 7.39 Arterial Blood Partial Pressure CO2 43 mmHg Arterial Blood Partial Pressure O2 54 mmHG Arterial Blood Oxygen Content 12.2 Vol % Arterial Blood Carboxyhemoglobin 1.1 % Arterial Blood Methemoglobin 0.5 % Blood Gas Hemoglobin 10.3 G/DL Oxygen Delivery Device NASAL CANNULA Blood Gas Liter Flow 3 L/M MDM Medical Decision Making Medical Screen Exam Complete: Yes Emergency Medical Condition: Yes Medical Record Reviewed: Yes Interpretation(s) Laboratory Tests Test 05/21/17 14:10 White Blood Count 8.1 TH/MM3 Red Blood Count 3.43 MIL/MM3 Hemoglobin 10.4 GM/DL Hematocrit 31.0 % Mean Corpuscular Volume 90.4 FL Mean Corpuscular Hemoglobin 30.4 PG Mean Corpuscular Hemoglobin Concent 33.6 % Red Cell Distribution Width 15.0 % Platelet Count 268 TH/MM3 Mean Platelet Volume 7.7 FL Neutrophils (%) (Auto) 59.5 % Lymphocytes (%) (Auto) 20.0 % Monocytes (%) (Auto) 13.3 % Eosinophils (%) (Auto) 6.0 % Basophils (%) (Auto) 1.2 % Neutrophils # (Auto) 4.8 TH/MM3 Lymphocytes # (Auto) 1.6 TH/MM3 Monocytes # (Auto) 1.1 TH/MM3 Eosinophils # (Auto) 0.5 TH/MM3 Basophils # (Auto) 0.1 TH/MM3 CBC Comment DIFF FINAL Differential Comment Blood Urea Nitrogen 62 MG/DL Creatinine 7.93 MG/DL Random Glucose 95 MG/DL Total Protein 6.6 GM/DL Albumin 2.5 GM/DL Calcium Level 9.4 MG/DL Magnesium Level 1.9 MG/DL Alkaline Phosphatase 48 U/L Aspartate Amino Transf (AST/SGOT) 18 U/L Alanine Aminotransferase (ALT/SGPT) 16 U/L Total Bilirubin 0.3 MG/DL Sodium Level 142 MEQ/L Potassium Level 3.5 MEQ/L Chloride Level 102 MEQ/L Carbon Dioxide Level 32.1 MEQ/L Anion Gap 8 MEQ/L Estimat Glomerular Filtration Rate 7 ML/MIN Last Impressions Chest X-Ray 05/21/17 1401 Signed Impressions: Service Date/Time: May 15:13 - CONCLUSION: There is a complete opacification of the left hemithorax with left shift of the mediastinum. This indicates significant volume loss with likely left lung collapse. There may be a central obstructing process. Joe Curry MD CT of the thorax without contrast reveals complete collapse of the left lung appears to be due to extensive debris within the left mainstem bronchus extending peripherally. Bronchoscopy is recommended for further evaluation and possible treatment. Esophagus appears to impinge on the posterior wall of the trachea and may partially obscure the lumen in the upper thorax. No obvious hilar mass lesion although anatomic detail is limited due to the adjacent collapsed lung. This area can be reevaluated after clearing of the left main bronchus and reexpansion of the left lung. Pleural parenchymal atelectasis or scarring posteriorly in the superior segment of the right lower lobe. Right lung is otherwise clear. Atherosclerotic calcification of the coronary arteries. Calcification of the mitral valve annulus. Differential Diagnosis Differential diagnosis includes dehydration, hypotension, fluid shift, pulmonary edema, pleural effusion, pneumonia, dialysis side effect, sepsis. Narrative Course IV was established, labs are drawn and sent, and the patient was placed on cardiac telemetry monitoring and continuous pulse oximetry monitoring. Chest x- ray was obtained. EKG was ordered and interpreted. The patient was administered 500 cc normal saline bolus for systolic in the 80s and diastolic in the 50s. Chest x-ray reveals complete whiteout of the left lung. Labs are unremarkable except for elevated creatinine and BUN secondary to chronic kidney disease and peritoneal dialysis. CT of the thorax reveals complete collapse of the left lung that appears to be due to extensive debris within the left mainstem bronchus extending peripherally, bronchoscopy is recommended for further evaluation and possible treatment. Therefore, a call was placed to the on-call plaster mechanic, Dr. Brown, at 5:05 PM. I discussed the patient with the plaster mechanic who agrees the patient will need a bronchoscopy. A consult was placed to the plaster mechanic. The patient will be admitted to the on-call medical service. I discussed the patient with Dr. Walsh who agrees with admission. Physician Communication Physician Communication I discussed patient with Dr. Walsh who agrees with admission. Diagnosis Primary Impression: Bronchial obstruction Additional Impressions: Dyspnea Qualified Codes: R06.00 - Dyspnea, unspecified Hypoxia Chronic kidney disease Qualified Codes: N18.6 - End stage renal disease; Z99.2 - Dependence on renal dialysis Admitting Information Admitting Physician Requests: Admit Condition: Stable Tevin Caraballo MD May 21, 2017 14:14
[2017-05-21] MEDS ORDERED: RESP: LIDOCAINE HCL 4% PF 5 ML NEB NEB ONE (14:15)
[2017-05-21] MEDS ORDERED: SODIUM CHLORID 0.9% 500 ML INJ 500 ML IV ONE (14:15)
[2017-05-21] MEDS: RESP: ALBUTEROL 2.5 MG/IPRATROPIUM 0.5 MG NEB (SCH) INH (14:15)
[2017-05-21] MEDS ORDERED: SODIUM CHLORIDE 0.9% FLUSH 10 ML FLUSH IVF PRN (14:15)
[2017-05-21 14:25] LABS: AUTOMATED NEUTROPHIL # 4.8 TH/MM3 (1.8-7.7); BASOPHIL # 0.1 TH/MM3 (0-0.2); BASOPHIL % 1.2 % (0.0-2.0); EOSINOPHIL # 0.5 TH/MM3 (0-0.4); HEMOGLOBIN 10.4 GM/DL (13.0-17.0); LYMPHOCYTE # 1.6 TH/MM3 (1.0-4.8); MEAN CELL VOLUME 90.4 FL (80.0-100.0); MEAN CORPUSCULAR HEMOGLOBIN 30.4 PG (27.0-34.0); MEAN CORPUSCULAR HGB CONC 33.6 % (32.0-36.0); MEAN PLATELET VOLUME 7.7 FL (7.0-11.0); MONO % 13.3 % (0.0-8.0); MONOCYTE # 1.1 TH/MM3 (0-0.9); NEUT % 59.5 % (16.0-70.0); PLATELET COUNT 268 TH/MM3 (150-450); RED BLOOD COUNT 3.43 MIL/MM3 (4.50-5.90); WHITE BLOOD COUNT 8.1 TH/MM3 (4.0-11.0)
[2017-05-21 14:45] LABS: ALBUMIN 2.5 GM/DL (3.4-5.0); ALT (GPT) 16 U/L (12-78); AST (GOT) 18 U/L (15-37); BICARBONATE 32.1 MEQ/L (21.0-32.0); BLOOD UREA NITROGEN 62 MG/DL (7-18); CALCIUM 9.4 MG/DL (8.5-10.1); CHLORIDE 102 MEQ/L (98-107); CREATININE 7.93 MG/DL (0.60-1.30); GLOMERULAR FILTRATION RATE 7 ML/MIN (>89); GLUCOSE,RANDOM 95 MG/DL (74-106); MAGNESIUM 1.9 MG/DL (1.5-2.5); SODIUM (NA) 142 MEQ/L (136-145)
[2017-05-21 14:47] LABS: ALKALINE PHOSPHATASE 48 U/L (45-117); TOTAL BILIRUBIN ADULT 0.3 MG/DL (0.2-1.0); TOTAL PROTEIN 6.6 GM/DL (6.4-8.2)
[2017-05-21] MEDS ORDERED: LEVE500 PO (15:08)
--- NOTE | 2017-05-21 15:29 | RADRPT ---
EXAM DATE/TIME: 05/21/2017 15:13 [facility] COMPARISON: CT THORAX W/O CONTRAST, April 15, 2017, 10:35. CHEST SINGLE AP, April 13, 2017, 15:51. INDICATIONS : Short of breath, cough MEDICAL HISTORY : Cardiovascular disease. Chronic obstructive pulmonary disease. Hypertension SURGICAL HISTORY : Coronary artery stent ENCOUNTER: Initial ACUITY: 1 day PAIN SCORE: 0/10 LOCATION: chest FINDINGS: Portable AP view of the chest demonstrates complete opacification of the left hemithorax with leftwar d shift of the mediastinum. No aerated lung tissue is visualized on the left. Right lung is hyperinfl ated and demonstrates no consolidation. No pneumothorax or pleural effusion is present. The bones dem onstrate no acute finding. There are degenerative changes of the thoracic spine. CONCLUSION: There is a complete opacification of the left hemithorax with left shift of the mediastinum. This ind icates significant volume loss with likely left lung collapse. There may be a central obstructing pro cess. Joe Curry MD on May 21, 2017 at 15:24 Board Certified Radiologist. This report was verified electronically.
[2017-05-21] MEDS ORDERED: CEFEPIME INJ 2,000 MG in SODIUM CHLORIDE 0.9% INJ 100 ML IV ONE (16:15)
[2017-05-21] MEDS ORDERED: AZITHROMYCIN INJ 500 MG in SODIUM CHLOR 0.9% 250 ML INJ 250 ML IV ONE (16:15)
[2017-05-21] MEDS ORDERED: SODIUM CHLORIDE 0.9% FLUSH 10 ML FLUSH IV FLUSH PRN (16:30)
[2017-05-21] MEDS ORDERED: NALOXONE HCL 0.4 MG/ML AMP IV PUSH PRN (16:30)
--- NOTE | 2017-05-21 16:59 | RADRPT ---
EXAM DATE/TIME: 05/21/2017 16:29 [facility] COMPARISON: CHEST SINGLE AP, May 21, 2017, 15:13. CT THORAX W/O CONTRAST, April 15, 2017, 10:35. INDICATIONS : Low saturation,cough. RADIATION DOSE: 17.48 CTDIvol (mGy) MEDICAL HISTORY : Cardiovascular disease. Hypertension. Chronic obstructive pulmonary disease. Renal failure,seizures SURGICAL HISTORY : None. ENCOUNTER: Initial ACUITY: 1 day PAIN SCALE: 0/10 LOCATION: chest TECHNIQUE: Volumetric scanning of the chest was performed. Using automated exposure control and adjustment of t he mA and/or kV according to patient size, radiation dose was kept as low as reasonably achievable to obtain optimal diagnostic quality images. DICOM format image data is available electronically for r eview and comparison. Follow-up recommendations for detected pulmonary nodules are based at a minimum on nodule size and pa tient risk factors according to Fleischner Society Guidelines. FINDINGS: LUNGS: Complete collapse of the left long. Mild pleural-parenchymal atelectasis or scarring in the superior segment of the right lower lobe posteriorly. Otherwise the right lung is clear. PLEURAE: There is no pleural thickening or pleural effusion. MEDIASTINUM: The heart and great vessels demonstrate no acute abnormality. There is no mediastinal or hilar lymph adenopathy. Heart and mediastinal structures are shifted leftward due to the collapsed of left lung. The esophagus appears to impress on the posterior wall of the trachea and there is a large amount of debris identified in the left mainstem bronchus extending peripherally. This is the likely etiology f or the patient's left lung collapse. No obvious hilar mass lesion although hilar detail is obscured b y the collapsed lung. Atherosclerotic calcification of the coronary arteries. There is some calcifica tion of the mitral valve annulus AXILLAE: Within normal limits. No lymphadenopathy. MUSCULOSKELETAL: Exaggerated kyphosis of the upper dorsal spine. Degenerative spurring throughout the dorsal spine no acute fracture. MISCELLANEOUS: The visualized upper abdominal organs demonstrate no acute abnormality. CONCLUSION: 1. Complete collapse of the left lung appears to be due to extensive debris within the left mainstem bronchus extending peripherally. Bronchoscopy is recommended for further evaluation and possible ramiro tment. 2. The esophagus appears to impinge on the posterior wall of the trachea and may partially obscure th e lumen in the upper thorax. 3. No obvious hilar mass lesion although anatomic detail is limited due to the adjacent collapsed nimo g. This area can be reevaluated after clearing of the left mainstem bronchus and reexpansion of the l eft lung. 4. Pleural-parenchymal atelectasis or scarring posteriorly in the superior segment of the right lower lobe. Right lung is otherwise clear. 5. Atherosclerotic calcification of the coronary arteries. Calcification of the mitral valve annulus Gelacio Allen MD on May 21, 2017 at 16:47 Board Certified Radiologist. This report was verified electronically.
[2017-05-21] MEDS ORDERED: DOXY100C PO (17:18)
--- NOTE | 2017-05-21 17:48 | HHI.HP ---
[facility] Primary [facility] Physician Lisa Yousif MD Admission Diagnosis Large left pleural effusion, pneumonia, dyspnea, hypoxia Diagnoses: Travel History International Travel<30 Days: No Contact w/Intl Traveler <30 Da: No Traveled to Known Affected Are: No History of Present Illness History from patient, at the bedside, ER physician communication, and review of medical records. Patient lives at a nursing facility. Discharge. He has been there since May 05, 2017 from [facility]. stated that at the shelter, patient's oxygen has been low for the past few days. It was in the 80s. He was also coughing a lot at nighttime pretty much every night. He was told that he had pneumonia from an outpatient chest x-ray. However his cough was constant and they were getting worried that he was not improving despite treatment with antibiotics and therefore sent him to the hospital. Patient denies any fever. He denies actual shortness of breath except when he is having coughing fits. Denies any prior history of intubation. also reported that patient had history of pneumonia in February. He had a stroke in March 2017 while he was on a cruise and was managed at [facility]. He was then transferred from there to [facility]. He has been at the nursing facility since discharge from [facility] on May 05, 2017. Apart from this cough and dyspnea, patient denies any other symptoms such as fevers/nausea/vomiting/diarrhea/urinary burning or pain on urination. He denies any hematemesis/hematochezia/melena/hematuria. 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- currently at [facility] for therapy Past Surgical History tonsilectomy pd catheter placement Allergies: Coded Allergies: No Known Allergies (Unverified Allergy, Unknown, 05/21/17) Family History mother in childbirth father of heart dx in 50s only child Social History no smoking./ no etoh abuse or drugs Physical Exam Vital Signs Vital Signs Date Time Temp Pulse Resp B/P (MAP) Pulse Ox O2 Delivery O2 Flow Rate FiO2 05/21/17 17:00 60 25 99/52 (68) 92 3.00 05/21/17 16:00 60 20 110/56 (74) 92 Nasal Cannula 3.00 05/21/17 15:00 57 18 107/64 (78) 94 Nasal Cannula 3.00 05/21/17 14:00 93 Nasal Cannula 3.00 05/21/17 14:00 97.2 54 16 113/59 (77) 93 Physical Exam GENERAL: This is a well-nourished, well-developed patient, in mild distress from constant coughing SKIN: No rashes, ecchymoses or lesions. Cool and dry. HEAD: Atraumatic. Normocephalic. No temporal or scalp tenderness. EYES: No scleral icterus. No injection or drainage. ENT: Nose without bleeding, purulent drainage or septal hematoma. T Airway patent. NECK: Trachea midline. No JVD Supple, nontender, no meningeal signs. CARDIOVASCULAR: Regular rate and rhythm without murmurs, gallops, or rubs. RESPIRATORY: Clear to auscultation. Breath sounds equal bilaterally. No wheezes , rales, or rhonchi. GASTROINTESTINAL: Abdomen soft, non-tender, nondistended. No guarding. MUSCULOSKELETAL: Extremities without clubbing, cyanosis, or edema. No joint tenderness, effusion, or edema noted. No calf tenderness. NEUROLOGICAL: Awake and alertMotor and sensory grossly within normal limits. Normal speech. Laboratory Laboratory Tests Test 05/21/17 14:10 05/21/17 16:20 White Blood Count 8.1 Red Blood Count 3.43 Hemoglobin 10.4 Hematocrit 31.0 Mean Corpuscular Volume 90.4 Mean Corpuscular Hemoglobin 30.4 Mean Corpuscular Hemoglobin Concent 33.6 Red Cell Distribution Width 15.0 Platelet Count 268 Mean Platelet Volume 7.7 Neutrophils (%) (Auto) 59.5 Lymphocytes (%) (Auto) 20.0 Monocytes (%) (Auto) 13.3 Eosinophils (%) (Auto) 6.0 Basophils (%) (Auto) 1.2 Neutrophils # (Auto) 4.8 Lymphocytes # (Auto) 1.6 Monocytes # (Auto) 1.1 Eosinophils # (Auto) 0.5 Basophils # (Auto) 0.1 CBC Comment DIFF FINAL Differential Comment Blood Urea Nitrogen 62 Creatinine 7.93 Random Glucose 95 Total Protein 6.6 Albumin 2.5 Calcium Level 9.4 Magnesium Level 1.9 Alkaline Phosphatase 48 Aspartate Amino Transf (AST/SGOT) 18 Alanine Aminotransferase (ALT/SGPT) 16 Total Bilirubin 0.3 Sodium Level 142 Potassium Level 3.5 Chloride Level 102 Carbon Dioxide Level 32.1 Anion Gap 8 Estimat Glomerular Filtration Rate 7 Blood Gas Puncture Site LT RADIAL Blood Gas Patient Temperature 98.6 Blood Gas HCO3 25 Blood Gas Base Excess 0.8 Blood Gas Oxygen Saturation 84 Arterial Blood pH 7.39 Arterial Blood Partial Pressure CO2 43 Arterial Blood Partial Pressure O2 54 Arterial Blood Oxygen Content 12.2 Arterial Blood Carboxyhemoglobin 1.1 Arterial Blood Methemoglobin 0.5 Blood Gas Hemoglobin 10.3 Oxygen Delivery Device NASAL CANNULA Blood Gas Liter Flow 3 Result Diagram: 05/21/17 1410 05/21/17 1410 Imaging Last 48 hours Impressions Chest X-Ray 05/21/17 1401 Signed Impressions: Service Date/Time: May 15:13 - CONCLUSION: There is a complete opacification of the left hemithorax with left shift of the mediastinum. This indicates significant volume loss with likely left lung collapse. There may be a central obstructing process. Joe Curry MD Chest CT 05/21/17 0000 Signed Impressions: Service Date/Time: May 16:29 - CONCLUSION: 1. Complete collapse of the left lung appears to be due to extensive debris within the left mainstem bronchus extending peripherally. Bronchoscopy is recommended for further evaluation and possible treatment. 2. The esophagus appears to impinge on the posterior wall of the trachea and may partially obscure the lumen in the upper thorax. 3. No obvious hilar mass lesion although anatomic detail is limited due to the adjacent collapsed lung. This area can be reevaluated after clearing of the left mainstem bronchus and reexpansion of the left lung. 4. Pleural-parenchymal atelectasis or scarring posteriorly in the superior segment of the right lower lobe. Right lung is otherwise clear. 5. Atherosclerotic calcification of the coronary arteries. Calcification of the mitral valve annulus MD Ashly Dumont VTE Risk Assessment Caprinannika VTE Risk Assessment: Mod/High Risk (score >= 2) Caprini Risk Assessment Model Point Value = 1 Point Value = 2 Point Value = 3 Point Value = 5 Age 41-60 Minor surgery BMI > 25 kg/m2 Swollen legs Varicose veins or History of unexplained or recurrent spontaneous Oral contraceptives or hormone replacement Sepsis (< 1 month) Serious lung disease, including pneumonia (< 1 month) Abnormal pulmonary function Acute myocardial infarction Congestive heart failure (< 1 month) History of inflammatory bowel disease Medical patient at bed rest Age 61-74 Arthroscopic surgery Major open surgery (> 45 min) Laparoscopic surgery (> 45 min) Malignancy Confined to bed (> 72 hours) Immobilizing plaster cast Central venous access Age >= 75 History of VTE Family history of VTE Factor V Leiden Prothrombin [id number] Lupus anticoagulant Anticardiolipin antibodies Elevated serum homocysteine Heparin-induced thrombocytopenia Other congenital or acquired thrombophilia Stroke (< 1 month) Elective arthroplasty Hip, pelvis, or leg fracture Acute spinal cord injury (< 1 month) Prophylaxis Regimen Total Risk Factor Score Risk Level Prophylaxis Regimen 0-1 Low Early ambulation 2 Moderate Order ONE of the following: *Sequential Compression Device (SCD) *Heparin 5000 units SQ BID 3-4 Higher Order ONE of the following medications: *Heparin 5000 units SQ TID *Enoxaparin/Lovenox 40 mg SQ daily (WT < 150 kg, CrCl > 30 mL/min) *Enoxaparin/Lovenox 30 mg SQ daily (WT < 150 kg, CrCl > 10-29 mL/min) *Enoxaparin/Lovenox 30 mg SQ BID (WT < 150 kg, CrCl > 30 mL/min) AND/OR *Sequential Compression Device (SCD) 5 or more Highest Order ONE of the following medications: *Heparin 5000 units SQ TID (Preferred with Epidurals) *Enoxaparin/Lovenox 40 mg SQ daily (WT < 150 kg, CrCl > 30 mL/min) *Enoxaparin/Lovenox 30 mg SQ daily (WT < 150 kg, CrCl > 10-29 mL/min) *Enoxaparin/Lovenox 30 mg SQ BID (WT < 150 kg, CrCl > 30 mL/min) AND *Sequential Compression Device (SCD) Assessment and Plan Assessment and Plan Impression: Left main bronchus mucus plugging Dyspnea secondary to above Coughing fits secondary to above Hypoxia Pneumonia History of hypertension Possible history of A. fib per COPD History of allergies for which he sees Dr. Machado ESRD on peritoneal dialysis History of CVA with residual right-sided weakness. Currently at a shelter for rehab. Plan: Patient's case was discussed with plaster foreman by ER physician. Patient will be going for bronchoscopy in the morning. Use oxygen supplementation. Trial of Tessalon Perles. Doubt that this would help. Nebs scheduled and as needed. Start patient on cefepime per creatinine clearance and levels. Azithromycin p.o. Watch for fluid overload. Patient does not make any urine. He is on peritoneal dialysis. Nephrology consult. Patient would need dialysis today. Resume home meds. DVT prophylaxis on heparin. Hold for a.m. bronchoscopy. Discussed Condition With Patient, , ER physician, nursing staff Physician Certification 2 Midnight Certification Type: Admission for Inpatient Services Order for Inpatient Services The services are ordered in accordance with Medicare regulations or non- Medicare payer requirements, as applicable. In the case of services not specified as inpatient-only, they are appropriately provided as inpatient services in accordance with the 2-midnight benchmark. Estimated LOS (days): 2 days is the estimated time the patient will need to remain in the hospital, assuming treatment plan goals are met and no additional complications. Post-Hospital Plan: [facility] Marjorie Walsh MD May 21, 2017 17:48
[2017-05-21] MEDS ORDERED: HEPARIN SODIUM - IV 10,000 UNITS/10 ML VIAL IV FLUSH PRN (19:00)
[2017-05-21] MEDS ORDERED: SODIUM CHLORIDE 0.9% 10 ML VIAL IV FLUSH PRN (19:00)
[2017-05-21] MEDS ORDERED: DEXT 5%-NACL 0.45% 1000 ML INJ 1,000 ML IV SCH (19:00)
[2017-05-21] MEDS: methylPREDNISolone SOD SUCC 40 MG/1 ML VIAL IV SCH (20:00)
[2017-05-21] MEDS: levETIRAcetam 250 MG TAB PO SCH (20:35)
[2017-05-21] MEDS: BENZONATATE 100 MG CAP PO PRN (20:36)
[2017-05-21] MEDS: hydrALAZINE HCL 10 MG TAB PO SCH (20:36)
[2017-05-21] MEDS: ATORVASTATIN 80 MG TAB PO SCH (20:36)
[2017-05-21] MEDS: SODIUM CHLORIDE 0.9% FLUSH 10 ML FLUSH IV FLUSH SCH (20:36)
[2017-05-21] MEDS: GABAPENTIN 100 MG CAP PO SCH (20:36)
--- NOTE | 2017-05-21 20:40 | MB ---
cc: Chela Hogue MD DATE: 05/21/2017 REASON FOR CONSULTATION: Pleural effusion and atelectasis. HISTORY OF PRESENT ILLNESS: This is an 82-year-old white male with a previous history for CVA and pneumonia, was admitted with progressive shortness of breath and hypoxia. The patient was at the long-term and apparently has been on oxygen there but has had a persistent cough all night and his O2 saturations were in the 80s in spite of being on oxygen and a chest x-ray done as an outpatient stated he had pneumonia and he thus was sent to the emergency room. Upon arrival, a CT chest was done, which showed evidence of atelectasis of the left lung and a pleural effusion as well. He has had a stroke earlier this year and apparently was at [facility] in March. A CT scan of the chest was done in April this year, which showed only mild basilar infiltrates and atelectasis. PAST MEDICAL HISTORY: Included a history of hypertension, history of atrial fibrillation, prior history of multiple allergies and chronic bronchitis and history for renal failure with peritoneal catheter placement for dialysis. He had a tonsillectomy remotely. The patient has a history of obstructive sleep apnea on a CPAP mask and history of end-stage renal disease on peritoneal dialysis. ALLERGIES: NONE LISTED. FAMILY HISTORY: Father had heart disease. HABITS: The patient never smoked. No alcohol use. REVIEW OF SYSTEMS: The patient is unable to provide too many details. Denies chest pains, but has shortness of breath, has a cough, has wheezing. He has leg swelling and abdominal bloating and anxiety. PHYSICAL EXAMINATION: GENERAL: This moderately obese, elderly man is lying flat. He has some weakness of the left extremities and scaly skin with mild peripheral edema. VITAL SIGNS: Blood pressure 100/60, pulse is 62, respirations 22, temperature 97.5. HEENT: Head is normocephalic. Pupils are reactive. Tongue is dry. Throat was injected. Nasal mucosa is clear. NECK: Supple, no bruits or thyroid enlargement. CHEST: Distant breath sounds over the left chest with occasional wheezes over the right lung field. HEART: The heart sounds were irregular, S1 and S2 with no murmur. ABDOMEN: Soft, protuberant with mild epigastric tenderness. Bowel sounds are active. No organomegaly. EXTREMITIES: Minimal edema and decreased peripheral pulses. Reflexes 1+. The patient does have some weakness of the lower extremities as well. RECTAL: Deferred. IMPRESSION: 1. Atelectasis left lung with left pleural effusion, probable mucus plug and aspiration. 2. History of cerebrovascular accident. 3. Hypertension. 4. History of chronic bronchitis and reactive airways. 5. End-stage renal disease and on peritoneal dialysis. 6. Obstructive sleep apnea, on CPAP. The patient has a history of obstructive sleep apnea on a CPAP mask and history of end-stage renal disease on peritoneal dialysis. PLAN: The patient will be maintained on antibiotic coverage including cefepime 1 gram every 8 hours. The patient will be placed on O2 at 3 liters. A bronchoscopy will be scheduled to evaluate the left mainstem bronchus. Nebulized DuoNeb solution added t.i.d. p.r.n. Solu-Medrol 40 mg IV every 8 hours and will also continue Zithromax 500 mg IV daily. Coagulation profile will be done today and hold off on any anticoagulation. Thank you Dr. Walsh for this consultation. VJerel Hogue MD VJD/rt , 07:17 PM , 08:39 PM
[2017-05-21] MEDS ORDERED: CARVEDILOL 3.125 MG TAB PO SCH (21:00)
[2017-05-22] VITALS (46 sets, daily range): BP systolic 82–121; BP diastolic 50–61; PULSE 49–71; RESP 5–60; TEMP 98.2–99; O2SAT 85–100
[2017-05-22] MEDS: methylPREDNISolone SOD SUCC 40 MG/1 ML VIAL IV SCH (04:17)
[2017-05-22] MEDS: hydrALAZINE HCL 10 MG TAB PO SCH ×3 (04:17→22:00)
[2017-05-22] MEDS: BENZONATATE 100 MG CAP PO PRN (04:17)
[2017-05-22] MEDS: RESP: ALBUTEROL 2.5 MG/IPRATROPIUM 0.5 MG NEB (PRN) NEB (04:52)
[2017-05-22] MEDS ORDERED: FUROSEMIDE 40 MG/4 ML VIAL IV PUSH ONE (05:15)
--- NOTE | 2017-05-22 05:57 | HHI.PR ---
Addendum to Inpatient Note Addendum Reason: Additional Documentation Additional Information Halicat Note S: Resident team paged for a Halicat at approximately 0515 for patient in respiratory distress. Patient is an 82-year-old male with past history of hypertension, A. fib, COPD currently in hospital for possible mucous plugging of left lung. Nursing staff reports that the patient was doing well until approximately midnight when his O2 saturation was 97% on 4 L nasal cannula. He steadily declined to the 80s and was placed on nonrebreather mask at 15 L/min. he continues to saturate in the mid 80s while on nonrebreather at 15 L/min. The patient reports that he is short of breath, is having difficulty taking air in. Denies nausea, vomiting, fever, chills, chest pain, pain in arm/jaw, diaphoresis, lightheadedness, dizziness, headache, abdominal pain. Patient is fully alert and oriented. O: Pulse: 67 blood pressure: 109/53 RR: 30 SPO2 80% GENERAL: Laying in bed with obvious increase in respiratory effort. Unable to speak full sentences due to increased respiratory effort, constant coughing. A+ Ox3 SKIN: Warm and dry. HEAD: Atraumatic. Normocephalic. EYES: Pupils equal and round. No scleral icterus. No injection or drainage. ENT: No nasal bleeding or discharge. Mucous membranes pink and moist. NECK: Trachea midline. No JVD. CARDIOVASCULAR: Regular rate and rhythm. RESPIRATORY: No accessory muscle use. Distant breath sounds over left hemithorax, transmitted upper respiratory sounds. Occasional right-sided wheezing. GASTROINTESTINAL: Abdomen soft, non-tender, nondistended. MUSCULOSKELETAL: Extremities without clubbing, cyanosis, or edema. No obvious deformities. NEUROLOGICAL: Awake and alert. No obvious cranial nerve deficits. Motor grossly within normal limits. Five out of 5 muscle strength in the arms and legs. A/P: 82-year-old male with past history of hypertension, A. fib, COPD currently hospitalized for possible mucous plugging of left lung. Currently desaturated to the mid 80s with 15 L/min nonrebreather mask and increased respiratory effort. Patient otherwise looks stable. Minimal change in ABG. Although increased respiratory effort, patient appears stable. Wet read on portable chest x-ray shows opacification of left hemithorax. Appears unchanged from previous chest x-ray. Contacted and discussed with primary team. Discussed the potential need for an earlier bronchoscopy to be performed. Current symptoms likely secondary to suspected mucous plugging of left lung. -Patient had received 40 mg IV push of Lasix per primary team -BiPAP -will not be able to stay on this floor with low to mid 80s saturation, transfer to ICU Miller Lopez MD R1 May 22, 2017 05:57
[2017-05-22 06:04] LABS: AUTOMATED NEUTROPHIL # 5.1 TH/MM3 (1.8-7.7); BASOPHIL # 0.1 TH/MM3 (0-0.2); EOSINOPHIL % 0.2 % (0.0-4.0); HEMATOCRIT 32.6 % (39.0-51.0); HEMOGLOBIN 11.1 GM/DL (13.0-17.0); LYMPH % 9.4 % (9.0-44.0); LYMPHOCYTE # 0.5 TH/MM3 (1.0-4.8); MEAN CELL VOLUME 90.1 FL (80.0-100.0); MEAN CORPUSCULAR HEMOGLOBIN 30.7 PG (27.0-34.0); MEAN CORPUSCULAR HGB CONC 34.1 % (32.0-36.0); MEAN PLATELET VOLUME 7.9 FL (7.0-11.0); MONO % 2.3 % (0.0-8.0); MONOCYTE # 0.1 TH/MM3 (0-0.9); NEUT % 87.1 % (16.0-70.0); PLATELET COUNT 271 TH/MM3 (150-450); RED BLOOD COUNT 3.62 MIL/MM3 (4.50-5.90); RED CELL DISTRIBUTION WIDTH 14.8 % (11.6-17.2); WHITE BLOOD COUNT 5.9 TH/MM3 (4.0-11.0)
--- NOTE | 2017-05-22 06:06 | RADRPT ---
EXAM DATE/TIME: 05/22/2017 05:25 [facility] COMPARISON: CT THORAX W/O CONTRAST, April 15, 2017, 10:35. CHEST SINGLE AP, May 21, 2017, 15:13. CT THORAX W/ O CONTRAST, May 21, 2017, 16:29. INDICATIONS : HALICAT. Cough and shortness of breath. MEDICAL HISTORY : Cardiovascular disease. Chronic obstructive pulmonary disease. SURGICAL HISTORY : Coronary artery stent ENCOUNTER: Subsequent ACUITY: 1 day PAIN SCORE: 0/10 LOCATION: chest FINDINGS: There is persistent total collapse of the left lung. Right lung is stable and focally clear. Stable l eftward cardiomediastinal shift. CONCLUSION: No significant change Joe Tirado MD on May 22, 2017 at 6:01 Board Certified Radiologist. This report was verified electronically.
[2017-05-22 06:17] LABS: INTERNATIONAL NORMALIZED RATIO 1.2 RATIO
[2017-05-22 06:24] LABS: BICARBONATE 26.8 MEQ/L (21.0-32.0); CALCIUM 9.6 MG/DL (8.5-10.1); CREATININE 8.11 MG/DL (0.60-1.30)
[2017-05-22] MEDS ORDERED: PROPOFOL 500 MG/50 ML INJ 50 ML ONE (06:29)
[2017-05-22] MEDS ORDERED: ETOMIDATE 40 MG/20 ML VIAL ONE (06:29)
[2017-05-22] MEDS ORDERED: CHLORHEXIDINE GLUCONATE 2 % 1 PACK (2 CLOTHS)(extra cloths) TOPICAL PRN (06:30)
[2017-05-22] MEDS ORDERED: ROCURONIUM INJ 50 MG/5 ML VIAL ONE (06:53)
[2017-05-22] MEDS ORDERED: NOREPINEPHRINE-DEXTROSE DRIP 250 ML IV PRN (07:00)
[2017-05-22] MEDS ORDERED: GLUCAGON 1 MG/ML VIAL OTHER PRN (07:00)
[2017-05-22] MEDS ORDERED: TERBUTALINE INJ 1 MG/ML AMP SQ PRN (07:00)
[2017-05-22] MEDS ORDERED: DEXTROSE 50% IN WATER 50 ML VIAL(D50) IV PUSH PRN (07:00)
[2017-05-22] MEDS ORDERED: fentaNYL DRIP 250 ML IV PRN (07:00)
[2017-05-22] MEDS ORDERED: SODIUM CHLORID 0.9% 500 ML INJ 500 ML IV ONE ×2 (07:15→15:30)
[2017-05-22] MEDS: RESP: ALBUTEROL 2.5 MG/IPRATROPIUM 0.5 MG NEB (SCH) NEB ×4 (07:45→19:25)
--- NOTE | 2017-05-22 07:48 | MB ---
cc: Anant Vogel MD DATE: 05/22/2017 HISTORY OF PRESENT ILLNESS: The patient is an 82-year-old male with a past medical history of hypertension, obstructive sleep apnea on CPAP, COPD, CVA, end-stage renal disease on peritoneal dialysis who was admitted under hospitalist service on 05/21/2017 for respiratory distress. He had a chest x-ray on arrival which showed complete opacification of the left hemithorax with left shift of the mediastinum. Subsequently, he had CT chest without contrast which showed collapse of the left lung that appears to be due to extensive debris within the left main stem bronchus extending peripherally. No obvious hilar mass seen. A pleural parenchymal atelectasis or scarring posteriorly in the superior segment of right lower lobe noted as well. The patient was seen by Dr. Hogue from pulmonary service and scheduled to undergo a bronchoscopy. He had an ABG early this morning on a nonrebreather mask which showed acute hypoxemic respiratory failure with a pH of 7.40, CO2 of 37, PaO2 59, saturation 87%. The patient was placed on BiPAP with 100% FIO2 and transferred to [facility]. Critical care medicine was consulted for critical care management. When seen, the patient had a saturation of 90% on 100% FIO2. Due to worsening respiratory status, he was immediately intubated by myself and placed on full mechanical ventilation. Most of the history was obtained from reviewing the medical records. A repeat chest x-ray this morning prior to intubation showed no significant change with complete collapse of the left lung. PAST MEDICAL HISTORY: Includes hypertension, questionable atrial fibrillation, COPD, obstructive sleep apnea on CPAP and CVA. PAST SURGICAL HISTORY: Previous peritoneal catheter placement for dialysis, remote history of tonsillectomy. ALLERGIES: NO KNOWN DRUG ALLERGIES. SOCIAL HISTORY: Nonsmoker, nondrinker. REVIEW OF SYSTEMS: As per HPI, the rest of the review of systems unobtainable as the patient is intubated. PHYSICAL EXAMINATION: GENERAL: An 82-year-old male intubated for hypoxemic respiratory failure. VITAL SIGNS: Temperature 98.2, pulse of 64, respiratory rate 19, blood pressure 99/50, vent setting PRVC rate of 16, tidal volume 500, PEEP of 100% FIO2. HEENT: Atraumatic, normocephalic. Pupils are equal, round, and reactive to light and accommodation. Extraocular muscles intact. Conjunctivae pink. Nonicteric sclerae. Oral mucosa within normal. NECK: Supple. No JVD, adenopathy, or thyromegaly. Trachea in the midline. CARDIOVASCULAR: Regular rate and rhythm. Normal S1, S2, no murmurs, rubs or gallops noted. PULMONARY: Diminished breath sounds on the left. No wheezing. ABDOMEN: Soft, obese, nontender, nondistended, positive bowel sounds. EXTREMITIES: No cyanosis, clubbing or edema. NEUROLOGIC: Intubated. LABORATORY DATA: WBC 5.9, hemoglobin 11.1, hematocrit 32, platelet count 271. Sodium 139, potassium 3.5, chloride 103, CO2 26, BUN 59, creatinine 8, glucose 143. INR 1.2, PT 12, PTT 39.6. RADIOGRAPHIC STUDIES: A chest x-ray showed collapse of the left lung. IMPRESSION: 1. Acute hypoxemic respiratory failure requiring incubation. 2. Complete collapse of the left lung likely related to mucous plugging/atelectasis. 3. End-stage renal disease on peritoneal dialysis. 4. History of hypertension. 5. History of chronic obstructive pulmonary disease. 6. History of sleep apnea on continuous positive airway pressure device. 7. History of cerebrovascular accident. RECOMMENDATIONS: 1. We will place on fentanyl infusion for sedation and daily sedation vacation when appropriate. 2. Continue with vent support. Maintain sats above 92%. 3. Continue with bronchodilators, DuoNeb q. 6 hours and IV steroids. 4. We will initiate ICU vent bundle. Check a chest x-ray and ABG post-intubation. 5. Patient will need fiberoptic bronchoscopy once stable. Dr. Hogue from pulmonary service is following. 6. Monitor heart rate and blood pressure closely and maintain MAP greater than 65 mmHg. 7. He had an echocardiogram in February which showed EF of 55-60% with no regional wall motion abnormalities. Continue with aspirin, Plavix, Lipitor. Hold antihypertensive medication due to borderline low blood pressure post-intubation. 8. Monitor renal function. I's and O's and avoid nephrotoxins. Nephrology service has been consulted. The patient is on peritoneal dialysis. 9. Keep n.p.o. for now and place on Pepcid 10 mg IV q. 12 hours for GI prophylaxis. 10. Continue with broad spectrum antibiotics. He is currently on cefepime and azithromycin. Monitor for signs of infection which include fever and WBC. 11. We will obtain a sputum culture with Gram stain. 12. Place on sliding scale insulin with Accu-Chek for glycemic control. 13. Monitor CBC. 14. Gastrointestinal prophylaxis with Pepcid, DVT prophylaxis with SCDs and place on heparin sub-Q. 15. The patient has peripheral IVs, we will place central line if indicated. 16. Further recommendations will be based on hospital course. Anant Vogel MD AI/DL , 07:12 AM , 07:47 AM
[2017-05-22] MEDS ORDERED: RESP: ACETYLCYSTEINE 10% 10 ML NEB NEB SCH (08:00)
[2017-05-22] MEDS ORDERED: SEVELAMER CARBONATE 800 MG TAB PO SCH (08:00)
[2017-05-22] MEDS: INSULIN NovoLIN REGULAR SUPPLEMENTAL SCALE SQ SCH ×4 (08:00→20:00)
[2017-05-22] MEDS ORDERED: RESP: ACETYLCYSTEINE 10% 30 ML NEB NEB SCH (08:30)
[2017-05-22] MEDS ORDERED: FUROSEMIDE 80 MG TAB PO SCH (09:00)
[2017-05-22] MEDS: CALCITRIOL 0.25 MCG CAP PO SCH (09:00)
[2017-05-22] MEDS: levETIRAcetam 500 MG TAB PO SCH (09:00)
[2017-05-22] MEDS: ASPIRIN EC 81 MG TABEC PO SCH (09:00)
[2017-05-22] MEDS ORDERED: HEPARIN SODIUM - IV 10,000 UNITS/10 ML VIAL XX PRN (09:00)
[2017-05-22] MEDS ORDERED: SODIUM CHLORIDE 0.9% FLUSH 10 ML FLUSH IV FLUSH PRN (09:00)
[2017-05-22] MEDS: CLOPIDOGREL 75 MG TAB PO SCH (09:00)
[2017-05-22] MEDS: CALCIUM ACETATE 667 MG CAP NG SCH ×3 (09:00→18:00)
[2017-05-22] MEDS: CITALOPRAM HYDROBROMIDE 20 MG TAB PO SCH (09:00)
[2017-05-22] MEDS: GABAPENTIN 100 MG CAP PO SCH ×2 (09:00→20:26)
[2017-05-22] MEDS: SODIUM CHLORIDE 0.9% FLUSH 10 ML FLUSH IV FLUSH SCH ×2 (09:00→20:26)
[2017-05-22] MEDS ORDERED: ISOSORBIDE MONONITRATE 30 MG CR TAB (IMDUR) PO SCH (09:00)
[2017-05-22] MEDS: RESP: ACETYLCYSTEINE 10% 30 ML NEB NEB SCH ×3 (09:21→19:25)
[2017-05-22 10:03] LABS: LACTIC ACID SEPSIS PROTOCOL 4.3 mmol/L (0.4-2.0)
--- NOTE | 2017-05-22 10:28 | PD.CONS ---
HPI Service Nephrology Consult Requested By Reason for Consult ESRD on PD, dialysis management Primary Care Physician Lisa Yousif MD History of Present Illness This is an 82 y/o male patient. He has been admitted multiple times in the past 6 months, most recently following admission for pneumonia, C diff, and weakness. PMH of ESRD on PD, anemia, HTN, metabolic bone disorder, CVA. He was at the [facility], doing well per the but has been complaining of a cough for one week. He was brought in for respiratory distress and hypoxia, oxygen saturations in the 70s in the ER. His chest xray showed complete opacification of his left lung, suspected mucous plugging. He was intubated and now is on pressors for BP support. He is on 100% Fi)2 with oxygen saturations also of 100% . The plan is to bronch him today when more stable. His is at the bedside, tearful. We were consulted to assist with dialysis management. He had PD overnight, recently has had issues with PD catheter. (Jania Gallagher) Review of Systems ROS Limitations: Intubated, Unresponsive (Jania Gallagher) Past Family Social History Allergies: Coded Allergies: No Known Allergies (Unverified Allergy, Unknown, 05/21/17) Past Medical History ESRD on PD HTN anemia hyperlipidemia secondary hyperparathyroidism Past Surgical History PD catheter placement, has required manipulation and replacement Permcath placement/removal Tonsillectomy Reported Medications Acidophilus/l-Sporogenes (Lactobacillus Acidophilus) 35 Million Cell-25 Million Cell Tab 1 Tab PO TID Bisac-Evac Supp (Bisacodyl) 10 Mg Supp 10 Mg RECTAL DAILY PRN Tessalon Perles (Benzonatate) 100 Mg Cap 100 Mg PO BID PRN Furosemide 80 Mg Tab 80 Mg PO DAILY Renvela (Sevelamer Carbonate) 800 Mg Tab 800 Mg PO TIDAC Keppra (Levetiracetam) 250 Mg Tab 250 Mg PO HS Gabapentin 100 Mg Cap 100 Mg PO BID Coreg (Carvedilol) 3.125 Mg Tab 3.125 Mg PO Q12HR Norvasc (Amlodipine Besylate) 10 Mg Tab 10 Mg PO DAILY Hydralazine HCl 10 Mg Tablet 10 Mg PO Q8HR Cholestyramine 4 Gm/Pkt Powd 4 Gm PO DAILY 30 Days 1 packet contains 4 grams of cholestyramine. Nitroglycerin SL (Nitroglycerin) 0.4 Mg Subl 0.4 Mg SL DIRECTED PRN ONE TABLET UNDER THE TONGUE NEEDED FOR CHEST PAIN, MAY REPEAT EVERY FIVE MINUTES FOR A TOTAL OF 3 DOSES OR CALL 911 IF NO RELIEF Eucrisa Topical (Crisaborole Topical) 2 % Oin 1 Applic TOPICAL BID Atorvastatin (Atorvastatin Calcium) 80 Mg Tab 80 Mg PO HS Duoneb (Ipratropium-Albuterol Neb) 0.5-2.5 Mg/3 Ml Neb 1 Nebule INH Q6HR NEB Eq Acetaminophen (Acetaminophen) 325 Mg Tab 650 Mg PO Q4H PRN 30 Days Celexa (Citalopram Hydrobromide) 20 Mg Tab 20 Mg PO DAILY Aspirin DR (Aspirin) 81 Mg Tabdr 81 Mg PO DAILY Isosorbide Mononitrate ER (Isosorbide Mononitrate) 30 Mg Hayder 30 Mg PO DAILY Clopidogrel (Clopidogrel Bisulfate) 75 Mg Tab 75 Mg PO DAILY Calcitriol 0.25 Mcg Cap 0.25 Mcg PO DAILY Travatan Z Opth Drops (Travoprost) 0.004 % Soln 1 Drop EACH EYE HS Hospital Bed - Electric 1 Ea Ea Ea .XX DIRECTED Reported Doxycycline Hyclate 100 Mg Cap 100 Mg PO BID Keppra (Levetiracetam) 500 Mg Tab 500 Mg PO BID Active Ordered Medications Current Medications Medications (Trade) Dose Ordered Sig/Corinna Route Start Time Stop Time Status Last Admin (NS Flush) 2 ml UNSCH PRN IV FLUSH 05/21/17 16:30 05/21/17 17:03 (NS Flush) 2 ml BID IV FLUSH 05/21/17 21:00 05/21/17 20:36 (Narcan Inj) 0.4 mg UNSCH PRN IV PUSH 05/21/17 16:30 (Duoneb Neb) 1 ampule Q4HR NEB PRN NEB 05/21/17 16:30 05/22/17 04:52 Cefepime HCl 1000 mg/Sodium Chloride 100 ml @ 200 mls/hr Q24H IV 05/22/17 17:00 (Zithromax) 500 mg Q24H PO 05/22/17 17:00 (Tessalon) 100 mg TID PRN PO 05/21/17 18:00 05/22/17 04:17 (Ecotrin Ec) 81 mg DAILY PO 05/22/17 09:00 (Lipitor) 80 mg HS PO 05/21/17 21:00 05/21/17 20:36 (Rocaltrol) 0.25 mcg DAILY PO 05/22/17 09:00 (CeleXA) 20 mg DAILY PO 05/22/17 09:00 (Plavix) 75 mg DAILY PO 05/22/17 09:00 (Neurontin) 100 mg BID PO 05/21/17 21:00 05/21/17 20:36 (Apresoline) 10 mg Q8HR PO 05/21/17 22:00 05/21/17 20:36 (Imdur) 30 mg DAILY PO 05/22/17 09:00 Future Hold (Lactinex) 1 tab TID PO 05/22/17 09:00 (Keppra) 250 mg HS PO 05/21/17 21:00 05/21/17 20:35 (Keppra) 500 mg DAILY PO 05/22/17 09:00 (NS Inj) 10 ml WITH DIALYSIS PRN IV FLUSH 05/21/17 19:00 (Heparin Inj) Add 1000 units of Hepa... WITH DIALYSIS PRN IV FLUSH 05/21/17 19:00 Miscellaneous Information Patient in critical care unit? Ass... [id number] .XX 05/22/17 06:30 (Chlorhexidine 2% Cloth) 3 pack DAILY@04 TOPICAL 05/23/17 04:00 05/27/17 04:01 (Chlorhexidine 2% Cloth) 3 pack UNSCH PRN TOPICAL 05/22/17 06:30 05/27/17 06:19 Norepinephrine Bitartrate 250 ml @ 7.5 mls/hr TITRATE PRN IV 05/22/17 07:00 (Brethine Inj) 1 mg UNSCH PRN SQ 05/22/17 07:00 Fentanyl Citrate 250 ml @ 5 mls/hr TITRATE PRN IV 05/22/17 07:00 (Duoneb Neb) 1 ampule Q6HR NEB NEB 05/22/17 07:45 05/22/17 08:40 (SoluCORTEF INJ) 50 mg Q6H IV PUSH 05/22/17 10:00 (D50w (Vial) Inj) 50 ml UNSCH PRN IV PUSH 05/22/17 07:00 (Glucagon Inj) 1 mg UNSCH PRN OTHER 05/22/17 07:00 (NovoLIN R SUPPLEMENTAL SCALE) 1 Q4H SQ 05/22/17 08:00 (Heparin Inj) 5,000 units Q12H SQ 05/22/17 17:00 (Mucomyst 10% Neb) 2 ml Q6HR NEB NEB 05/22/17 10:00 (Heparin Inj) 1,000 units WITH DIALYSIS PRN XX 05/22/17 09:00 (NS Flush) 10 ml UNSCH PRN IV FLUSH 05/22/17 09:00 (Phoslo) 667 mg TID NG 05/22/17 09:00 (Lasix Inj) 40 mg DAILY IV PUSH 05/23/17 09:00 Family History Non contributory Social History Non smoker No ETOH Recently unable to ambulate Full code (Jania Gallagher) Physical Exam Vital Signs Vital Signs Date Time Temp Pulse Resp B/P (MAP) Pulse Ox O2 Delivery O2 Flow Rate FiO2 05/22/17 08:40 100 05/22/17 08:26 94 100 05/22/17 08:00 62 05/22/17 08:00 98.3 71 24 119/60 (79) 99 05/22/17 07:47 100 100 05/22/17 07:00 Mechanical Ventilator 100 05/22/17 05:15 86 15.00 05/22/17 05:06 Partial Non-Rebreather 50 05/22/17 05:05 86 Non-Rebreather 15.00 05/22/17 04:00 98.2 64 19 99/50 (66) 85 05/22/17 00:00 Nasal Cannula 4.00 05/22/17 00:00 61 05/22/17 00:00 98.6 55 18 96/51 (66) 97 05/21/17 21:00 65 05/21/17 20:00 98.4 59 17 111/57 (75) 91 05/21/17 20:00 Nasal Cannula 4.00 05/21/17 18:55 Nasal Cannula 3.00 05/21/17 17:30 98.0 63 18 109/59 (76) 93 05/21/17 17:00 60 25 99/52 (68) 92 3.00 05/21/17 16:00 60 20 110/56 (74) 92 Nasal Cannula 3.00 05/21/17 15:00 57 18 107/64 (78) 94 Nasal Cannula 3.00 05/21/17 14:00 93 Nasal Cannula 3.00 05/21/17 14:00 97.2 54 16 113/59 (77) 93 Physical Exam male, he is sedated on the vent but easily arouses to voice Lungs: diminished to near absent breath sounds on left, right mostly clear Neuro: sedated CV: S1/S2, RRR no murmurs Abd: round, soft, non tender, no hernias present; PD catheter in place Ext: scars on lower extremities, no edema Laboratory Laboratory Tests Test 05/21/17 14:10 05/21/17 16:20 05/22/17 05:21 05/22/17 05:40 White Blood Count 8.1 5.9 Red Blood Count 3.43 3.62 Hemoglobin 10.4 11.1 Hematocrit 31.0 32.6 Mean Corpuscular Volume 90.4 90.1 Mean Corpuscular Hemoglobin 30.4 30.7 Mean Corpuscular Hemoglobin Concent 33.6 34.1 Red Cell Distribution Width 15.0 14.8 Platelet Count 268 271 Mean Platelet Volume 7.7 7.9 Neutrophils (%) (Auto) 59.5 87.1 Lymphocytes (%) (Auto) 20.0 9.4 Monocytes (%) (Auto) 13.3 2.3 Eosinophils (%) (Auto) 6.0 0.2 Basophils (%) (Auto) 1.2 1.0 Neutrophils # (Auto) 4.8 5.1 Lymphocytes # (Auto) 1.6 0.5 Monocytes # (Auto) 1.1 0.1 Eosinophils # (Auto) 0.5 0.0 Basophils # (Auto) 0.1 0.1 CBC Comment DIFF FINAL DIFF FINAL Differential Comment Blood Urea Nitrogen 62 59 Creatinine 7.93 8.11 Random Glucose 95 143 Total Protein 6.6 Albumin 2.5 Calcium Level 9.4 9.6 Magnesium Level 1.9 Alkaline Phosphatase 48 Aspartate Amino Transf (AST/SGOT) 18 Alanine Aminotransferase (ALT/SGPT) 16 Total Bilirubin 0.3 Sodium Level 142 139 Potassium Level 3.5 3.5 Chloride Level 102 103 Carbon Dioxide Level 32.1 26.8 Anion Gap 8 9 Estimat Glomerular Filtration Rate 7 6 Blood Gas Puncture Site LT RADIAL LT RADIAL Blood Gas Patient Temperature 98.6 98.6 Blood Gas HCO3 25 22 Blood Gas Base Excess 0.8 -1.9 Blood Gas Oxygen Saturation 84 87 Arterial Blood pH 7.39 7.40 Arterial Blood Partial Pressure CO2 43 37 Arterial Blood Partial Pressure O2 54 59 Arterial Blood Oxygen Content 12.2 16.2 Arterial Blood Carboxyhemoglobin 1.1 0.9 Arterial Blood Methemoglobin 0.5 0.6 Blood Gas Hemoglobin 10.3 13.3 Oxygen Delivery Device NASAL CANNULA NONE REABREATHER Blood Gas Liter Flow 3 15 Blood Gas Inspired Oxygen 100 Prothrombin Time 12.0 Prothromb Time International Ratio 1.2 Activated Partial Thromboplast Time 39.6 Test 05/22/17 08:09 05/22/17 09:22 Blood Gas Puncture Site RT RADIAL Blood Gas Patient Temperature 98.6 Blood Gas HCO3 21 Blood Gas Base Excess -5.9 Blood Gas Oxygen Saturation 94 Arterial Blood pH 7.22 Arterial Blood Partial Pressure CO2 52 Arterial Blood Partial Pressure O2 108 Arterial Blood Oxygen Content 18.8 Arterial Blood Carboxyhemoglobin 0.2 Arterial Blood Methemoglobin 1.1 Blood Gas Hemoglobin 14.1 Oxygen Delivery Device VENTILATOR Blood Gas Ventilator Setting PRVC/AC Blood Gas Inspired Oxygen 100 Lactic Acid Level 4.3 (Jania GallagherP) Result Diagram: 05/22/17 0540 05/22/17 0540 Imaging Last 72 hours Impressions Chest X-Ray 05/22/17 0000 Signed Impressions: Service Date/Time: Monday, May 22, 2017 05:25 - CONCLUSION: No significant change Joe Tirado MD Chest X-Ray 05/21/17 1401 Signed Impressions: Service Date/Time: May 15:13 - CONCLUSION: There is a complete opacification of the left hemithorax with left shift of the mediastinum. This indicates significant volume loss with likely left lung collapse. There may be a central obstructing process. Joe Curry MD Chest CT 05/21/17 0000 Signed Impressions: Service Date/Time: May 16:29 - CONCLUSION: 1. Complete collapse of the left lung appears to be due to extensive debris within the left mainstem bronchus extending peripherally. Bronchoscopy is recommended for further evaluation and possible treatment. 2. The esophagus appears to impinge on the posterior wall of the trachea and may partially obscure the lumen in the upper thorax. 3. No obvious hilar mass lesion although anatomic detail is limited due to the adjacent collapsed lung. This area can be reevaluated after clearing of the left mainstem bronchus and reexpansion of the left lung. 4. Pleural-parenchymal atelectasis or scarring posteriorly in the superior segment of the right lower lobe. Right lung is otherwise clear. 5. Atherosclerotic calcification of the coronary arteries. Calcification of the mitral valve annulus Gelacio Allen MD (Jania Gallagher) Assessment and Plan Problem List: (1) End stage renal disease ICD Codes: N18.6 - End stage renal disease Status: Chronic Plan: We will continue PD for now, had treatment last night Typical regimen is 9 hrs, 4 cycles, 2500 ml; no last fill. Use 1/5% and 2.5% solution. Monitor UF, has had issues with catheter and fluid retention last admission Avoid IVF administration Change Lasix to 40 mg IV daily He still makes some urine Change binder to calcium acetate with tube feed when diet is advanced (2) Bronchial obstruction ICD Codes: J98.09 - Other diseases of bronchus, not elsewhere classified Status: Acute Plan: Pulmonary following On 100% FiO2. Needs bronchoscopy today Management per plumbing service technician, vent weening per protocol. (3) Hypoxia ICD Codes: R09.02 - Hypoxemia Status: Resolved Plan: Due to obstruction See above. (4) Pneumonia ICD Codes: J18.9 - Pneumonia Status: Resolved Plan: Blood cultures in progress Hypotensive, most likely septic Ordered cefepime and Zithromax. (5) Hypertension ICD Codes: I10 - Essential (primary) hypertension Status: Chronic Plan: Antihypertensives on hold, currently on Levophed and vasopressin for BP support (6) Anemia ICD Codes: D64.9 - Anemia, unspecified Status: Chronic Plan: Epogen not required at this time. (Jania Gallagher) Problem List: (1) End stage renal disease ICD Codes: N18.6 - End stage renal disease Status: Chronic Plan: We will continue PD for now, had treatment last night Typical regimen is 9 hrs, 4 cycles, 2500 ml; no last fill. Use 1/5% and 2.5% solution. Monitor UF, has had issues with catheter and fluid retention last admission Avoid IVF administration Change Lasix to 40 mg IV daily He still makes some urine Change binder to calcium acetate with tube feed when diet is advanced (2) Bronchial obstruction ICD Codes: J98.09 - Other diseases of bronchus, not elsewhere classified Status: Acute Plan: Pulmonary following On 100% FiO2. Needs bronchoscopy today Management per plumbing service technician, vent weening per protocol. (3) Hypoxia ICD Codes: R09.02 - Hypoxemia Status: Resolved Plan: Due to obstruction See above. (4) Pneumonia ICD Codes: J18.9 - Pneumonia Status: Resolved Plan: Blood cultures in progress Hypotensive, most likely septic Ordered cefepime and Zithromax. (5) Hypertension ICD Codes: I10 - Essential (primary) hypertension Status: Chronic Plan: Antihypertensives on hold, currently on Levophed and vasopressin for BP support (6) Anemia ICD Codes: D64.9 - Anemia, unspecified Status: Chronic Plan: Epogen not required at this time. Assessment and Plan patient was seen and examined on 05/22/17. Agree with above assessment and plan. Discussed with Dr. Duran. s/p bronchoscopy. Improved aeration on the left side. Continue PD for now. Prognosis is guarded. (Gabriel Salcedo MD) Jania GallagherP May 22, 2017 10:28 Gabriel Salcedo MD May 23, 2017 09:22
--- NOTE | 2017-05-22 11:05 | RADRPT ---
EXAM DATE/TIME: 05/22/2017 10:20 [facility] COMPARISON: CT THORAX W/O CONTRAST, May 21, 2017, 16:29. CHEST SINGLE AP, May 22, 2017, 5:25. INDICATIONS : ET tube placement. MEDICAL HISTORY : Cardiovascular disease. Chronic obstructive pulmonary disease. Hypertension. SURGICAL HISTORY : Coronary artery stent. ENCOUNTER: Subsequent ACUITY: 3 days PAIN SCORE: 0/10 LOCATION: Bilateral chest FINDINGS: ET in good position. Complete opacification left hemithorax from a drowned the lung. Nasogastric t ube across the GE junction. Right lung is clear. CONCLUSION: ET tube in good position. Kian Adkins MD FACR on May 22, 2017 at 11:01 Board Certified Radiologist. This report was verified electronically.
[2017-05-22] MEDS: HYDROCORTISONE SOD SUCCINATE 100 MG VIAL IV PUSH SCH ×3 (11:10→23:02)
[2017-05-22] MEDS: LACTOBACILLUS ACIDOPHILUS TAB PO SCH ×2 (11:13→17:48)
--- NOTE | 2017-05-22 11:16 | RADRPT ---
EXAM DATE/TIME: 05/22/2017 10:27 [facility] COMPARISON: No previous studies available for comparison. INDICATIONS : NG tube placement. MEDICAL HISTORY : Cardiovascular disease. Hypertension. Chronic obstructive pulmonary disease. Renal failure,seizures SURGICAL HISTORY : None. ENCOUNTER: Subsequent ACUITY: 4 - 6 days PAIN SCORE: 0/10 LOCATION: Abdomen. FINDINGS: Examination of the abdomen demonstrates a normal bowel gas pattern. No free air is identified. No o rganomegaly is evident. Nasogastric tube just across the GE junction, side hole is probably not.. Os seous structures are intact. CONCLUSION: No evidence of obstruction. Nasogastric tube across the GE junction. No free air. Kian Adkins MD FACR on May 22, 2017 at 11:12 Board Certified Radiologist. This report was verified electronically.
--- NOTE | 2017-05-22 11:35 | HHI.PR ---
Subjective Remarks Ws intubated for resp failure and now on FIO2 50 % and vent support. On Pressors and IV antibiotics and IV Steroids. Objective Vital Signs Date Time Temp Pulse Resp B/P (MAP) Pulse Ox O2 Delivery O2 Flow Rate FiO2 05/22/17 11:20 98 50 05/22/17 10:00 57 05/22/17 08:40 100 05/22/17 08:26 94 100 05/22/17 08:21 57 20 119/59 (79) 05/22/17 08:00 62 05/22/17 08:00 98.3 71 24 119/60 (79) 99 05/22/17 07:47 100 100 05/22/17 07:00 Mechanical Ventilator 100 05/22/17 05:15 86 15.00 05/22/17 05:06 Partial Non-Rebreather 50 05/22/17 05:05 86 Non-Rebreather 15.00 05/22/17 04:00 98.2 64 19 99/50 (66) 85 05/22/17 00:00 Nasal Cannula 4.00 05/22/17 00:00 61 05/22/17 00:00 98.6 55 18 96/51 (66) 97 05/21/17 21:00 65 05/21/17 20:00 98.4 59 17 111/57 (75) 91 05/21/17 20:00 Nasal Cannula 4.00 05/21/17 18:55 Nasal Cannula 3.00 05/21/17 17:30 98.0 63 18 109/59 (76) 93 05/21/17 17:00 60 25 99/52 (68) 92 3.00 05/21/17 16:00 60 20 110/56 (74) 92 Nasal Cannula 3.00 05/21/17 15:00 57 18 107/64 (78) 94 Nasal Cannula 3.00 05/21/17 14:00 93 Nasal Cannula 3.00 05/21/17 14:00 97.2 54 16 113/59 (77) 93 I/O 05/21/17 05/21/17 05/21/17 05/22/17 05/22/17 05/22/17 07:00 15:00 23:00 07:00 15:00 23:00 Intake Total 600 ml Output Total 200 ml Balance 600 ml -200 ml IV Total 600 ml Output Peritoneal Fluid 200 ml Result Diagram: 05/22/17 0540 05/22/17 0540 Objective Remarks GENERAL: This moderately obese, elderly man intubated. He has some weakness of the left extremities and scaly skin with mild peripheral edema. HEENT: Head is normocephalic. Pupils are reactive. Tongue is dry. Throat was clear. Nasal mucosa is clear. NECK: Supple, no bruits or thyroid enlargement. CHEST: Distant breath sounds over the left chest with occasional wheezes over the right lung field. HEART: The heart sounds were irregular, S1 and S2 with no murmur. ABDOMEN: Soft, protuberant with Bowel sounds active. No organomegaly. EXTREMITIES: Minimal edema and decreased peripheral pulses. Reflexes 1+. The patient does have some weakness of the lower extremities as well. Assessment and Plan Assessment and Plan IMPRESSION: 1. Atelectasis left lung with left pleural effusion, probable mucus plug and aspiration. 2. History of cerebrovascular accident. 3. Hypertension. 4. History of chronic bronchitis and reactive airways. 5. End-stage renal disease and on peritoneal dialysis. 6. Obstructive sleep apnea, on CPAP. Plan : 1. Will Wean FIO2 to keep sat >92. 2. Bronchoscopy to clear secretions from left lung 3. Continue antibiotics per Dr Hubbard 4. Duonebs qid. 5. Keep sedated. 6. Mucomyst 2 CC 20 % q6h 7. CXR , BMP in am 8. NG to int suction 9. D/W Chela Ortez MD May 22, 2017 11:35
--- NOTE | 2017-05-22 12:48 | RADRPT ---
EXAM DATE/TIME: 05/22/2017 12:22 [facility] COMPARISON: CT BRAIN W/O CONTRAST, April 13, 2017, 15:14. INDICATIONS : Altered mental status. RADIATION DOSE: 56.35 CTDIvol (mGy) MEDICAL HISTORY : Stroke. Renal failure, acute. Seizures.Cardiovascular disease, hypertension. SURGICAL HISTORY : Dialysis. ENCOUNTER: Initial ACUITY: 1 day PAIN SCALE: Non-responsive LOCATION: cranial TECHNIQUE: Multiple contiguous axial images were obtained of the head. Using automated exposure control and adj ustment of the mA and/or kV according to patient size, radiation dose was kept as low as reasonably a chievable to obtain optimal diagnostic quality images. DICOM format image data is available electro nically for review and comparison. FINDINGS: CEREBRUM: The ventricles are normal for age. No evidence of midline shift, mass lesion, hemorrhage or acute in farction. No extra-axial fluid collections are seen. POSTERIOR FOSSA: The cerebellum and brainstem are intact. The 4th ventricle is midline. The cerebellopontine angle i s unremarkable. EXTRACRANIAL: The visualized portion of the orbits is intact. SKULL: The calvaria is intact. No evidence of skull fracture. CONCLUSION: Negative for acute process Kian Adkins MD FACR on May 22, 2017 at 12:45 Board Certified Radiologist. This report was verified electronically.
[2017-05-22] MEDS ORDERED: MIDAZOLAM HCL 5 MG/ML VIAL (1 ML) ONE (14:03)
--- NOTE | 2017-05-22 14:52 | RADRPT ---
EXAM DATE/TIME: 05/22/2017 14:35 [facility] COMPARISON: CHEST SINGLE AP, May 22, 2017, 10:20. INDICATIONS : Post bronchoscopy. MEDICAL HISTORY : Stroke. Renal failure, acute. Seizures.Cardiovascular disease, hypertension. SURGICAL HISTORY : Dialysis. ENCOUNTER: Subsequent ACUITY: 1 day PAIN SCORE: 0/10 LOCATION: Bilateral chest FINDINGS: Stable ETT and NGT. Marked improved aeration of the left lung following bronchoscopy without pneumoth orax. Residual pleural parenchymal opacities in the left lower lung zone. Cardiomediastinal contours are stable. Remainder of the exam is unchanged. CONCLUSION: 1. Marked improved left lung aeration following bronchoscopy without pneumothorax. Hunter Daniel MD on May 22, 2017 at 14:50 Board Certified Radiologist. This report was verified electronically.
--- NOTE | 2017-05-22 17:28 | RADRPT ---
EXAM DATE/TIME: 05/22/2017 17:03 [facility] COMPARISON: CHEST SINGLE AP, May 22, 2017, 14:35. INDICATIONS : Evalaute for left sided central line placement. MEDICAL HISTORY : Cardiovascular disease. Chronic obstructive pulmonary disease. Hypertension. SURGICAL HISTORY : Coronary artery stent. ENCOUNTER: Subsequent ACUITY: 1 day PAIN SCORE: Non-responsive. LOCATION: chest FINDINGS: Stable ETT and NGT. Interval placement of left IJ central line with tip in the junction of the SVC. N o significant pneumothorax. Redemonstration of patchy airspace disease in the left mid to lower lung zones. Cardiome skull contours are stable. Remainder of the exam is unchanged. CONCLUSION: 1. Left IJ central line in the SVC junction without pneumothorax. 2. Patchy airspace disease in the left mid to lower lung zones. Hunter Daniel MD on May 22, 2017 at 17:24 Board Certified Radiologist. This report was verified electronically.
[2017-05-22] MEDS: CEFEPIME INJ 1,000 MG in SODIUM CHLORIDE 0.9% INJ 100 ML IV SCH (17:47)
[2017-05-22] MEDS: HEPARIN SODIUM - SQ 10,000 UNITS/ML VIAL SQ SCH (17:47)
[2017-05-22] MEDS: AZITHROMYCIN 250 MG TAB PO SCH (17:48)
[2017-05-22] MEDS: levETIRAcetam 250 MG TAB PO SCH (20:26)
[2017-05-22] MEDS: ATORVASTATIN 80 MG TAB PO SCH (20:27)
[2017-05-23] VITALS (36 sets, daily range): BP systolic 86–111; BP diastolic 48–58; PULSE 47–63; RESP 9–22; TEMP 98.3–98.7; O2SAT 84–100
[2017-05-23] MEDS: HYDROCORTISONE SOD SUCCINATE 100 MG VIAL IV PUSH SCH ×4 (03:10→20:46)
[2017-05-23] MEDS: CHLORHEXIDINE GLUCONATE 2 % 1 PACK (2 CLOTHS)(taper/protocol) TOPICAL SCH (03:11)
[2017-05-23] MEDS: RESP: ALBUTEROL 2.5 MG/IPRATROPIUM 0.5 MG NEB (SCH) NEB ×4 (03:27→21:45)
[2017-05-23] MEDS: RESP: ACETYLCYSTEINE 10% 30 ML NEB NEB SCH ×3 (03:27→21:46)
[2017-05-23] MEDS: INSULIN NovoLIN REGULAR SUPPLEMENTAL SCALE SQ SCH ×7 (04:00→23:14)
[2017-05-23] MEDS: HEPARIN SODIUM - SQ 10,000 UNITS/ML VIAL SQ SCH ×2 (04:30→17:25)
[2017-05-23] MEDS: hydrALAZINE HCL 10 MG TAB PO SCH ×3 (04:30→20:46)
--- NOTE | 2017-05-23 08:17 | HHI.CCPN ---
Subjective Remarks/Hospital Course Patient is an 82-year-old male with a past medical history of hypertension, obstructive sleep apnea on CPAP, COPD, CVA, end-stage renal disease on peritoneal dialysis who was admitted under hospitalist service on 05/21/2017 for respiratory distress. He had a chest x-ray on arrival which showed complete opacification of the left hemithorax with left shift of the mediastinum. Subsequently, he had CT chest without contrast which showed collapse of the left lung that appears to be due to extensive debris within the left main stem bronchus extending peripherally. No obvious hilar mass seen. A pleural parenchymal atelectasis or scarring posteriorly in the superior segment of right lower lobe noted as well. The patient was seen by Dr. Hogue from pulmonary service and scheduled to undergo a bronchoscopy. He had an ABG early this morning on a nonrebreather mask which showed acute hypoxemic respiratory failure with a pH of 7.40, CO2 of 37, PaO2 59, saturation 87%. The patient was placed on BiPAP with 100% FIO2 and transferred to [facility] [place]. Critical care medicine was consulted for critical care management. When seen, the patient had a saturation of 90% on 100% FIO2. Due to worsening respiratory status, he was immediately intubated by myself and placed on full mechanical ventilation. Most of the history was obtained from reviewing the medical records. A repeat chest x-ray this morning prior to intubation showed no significant change with complete collapse of the left lung. 05/23 Patient remains intubated, sedated with Fentanyl drip. Required Levophed post intubation now off pressor. Afebrile. s/p bronch yesterday showed thick mucoid secretions/mucous plugs on left suctioned to clear CXR post bronch showed improved aeration on left. Objective Vital Signs Date Time Temp Pulse Resp B/P (MAP) Pulse Ox O2 Delivery O2 Flow Rate FiO2 05/23/17 07:35 96 45 05/23/17 06:00 53 05/23/17 04:00 98.3 20 86/52 (63) 05/22/17 07:00 Mechanical Ventilator 05/22/17 05:15 15.00 Intake and Output 05/23/17 05/23/17 05/24/17 08:00 16:00 00:00 Intake Total 291 ml Balance 291 ml Result Diagram: 05/22/17 0540 05/22/17 0540 Other Results Laboratory Tests Test 05/22/17 09:22 05/22/17 13:35 05/22/17 14:45 05/23/17 00:25 Lactic Acid Level 4.3 mmol/L 3.1 mmol/L 3.3 mmol/L Blood Gas Puncture Site LT RADIAL Blood Gas Patient Temperature 98.6 Blood Gas HCO3 21 mmol/L Blood Gas Base Excess -4.1 mmol/L Blood Gas Oxygen Saturation 97 % Arterial Blood pH 7.29 Arterial Blood Partial Pressure CO2 46 mmHg Arterial Blood Partial Pressure O2 126 mmHg Arterial Blood Oxygen Content 14.6 Vol % Arterial Blood Carboxyhemoglobin 0.4 % Arterial Blood Methemoglobin 1.2 % Blood Gas Hemoglobin 10.6 G/DL Oxygen Delivery Device VENTILATOR Blood Gas Ventilator Setting PRVC/AC Blood Gas Inspired Oxygen 80 % Test 05/23/17 02:00 Nasal Screen MRSA (PCR) MRSA NOT DETECTED Imaging Last Impressions Head CT 05/22/17 0000 Signed Impressions: Service Date/Time: Monday, May 22, 2017 12:22 - CONCLUSION: Negative for acute process Kian Adkins MD FACR Chest X-Ray 05/22/17 0000 Signed Impressions: Service Date/Time: Monday, May 22, 2017 17:03 - CONCLUSION: 1. Left IJ central line in the SVC junction without pneumothorax. 2. Patchy airspace disease in the left mid to lower lung zones. Hunter Daniel MD Abdomen X-Ray 05/22/17 0000 Signed Impressions: Service Date/Time: Monday, May 22, 2017 10:27 - CONCLUSION: No evidence of obstruction. Nasogastric tube across the GE junction. No free air. Kian Adkins MD FACR Chest CT 05/21/17 0000 Signed Impressions: Service Date/Time: May 16:29 - CONCLUSION: 1. Complete collapse of the left lung appears to be due to extensive debris within the left mainstem bronchus extending peripherally. Bronchoscopy is recommended for further evaluation and possible treatment. 2. The esophagus appears to impinge on the posterior wall of the trachea and may partially obscure the lumen in the upper thorax. 3. No obvious hilar mass lesion although anatomic detail is limited due to the adjacent collapsed lung. This area can be reevaluated after clearing of the left mainstem bronchus and reexpansion of the left lung. 4. Pleural-parenchymal atelectasis or scarring posteriorly in the superior segment of the right lower lobe. Right lung is otherwise clear. 5. Atherosclerotic calcification of the coronary arteries. Calcification of the mitral valve annulus Gelacio Allen MD Objective Remarks GENERAL: Patient is 82 yo intubated and sedated SKIN: Warm and dry. HEAD: Normocephalic. EYES: No scleral icterus. No injection or drainage. NECK: Supple, trachea midline. No JVD or lymphadenopathy. CARDIOVASCULAR: Regular rate and rhythm without murmurs, gallops, or rubs. RESPIRATORY: Breath sounds equal bilaterally. No accessory muscle use. GASTROINTESTINAL: Abdomen soft, non-tender, nondistended. MUSCULOSKELETAL: No cyanosis, or edema. Neuro: Sedated A/P Assessment and Plan 1. VDRF 2. s/p opacification of left lung due to mucous plugs -improved post bronch 3. End-stage renal disease on peritoneal dialysis. 4. History of hypertension. 5. History of chronic obstructive pulmonary disease. 6. History of sleep apnea on CPAP at home 7. History of cerebrovascular accident. Plan Neuro: fentanyl infusion for sedation and daily sedation vacation CT brain 05/22- no acute process Pulm: Continue with vent support and maintain sats >92%. Bronchodilators ( DuoNeb, Mucomyst), ICU vent bundle On Hydrocortisone 50mg Q6 Start SBT daily as tavares s/p bronch yesterday- thick mucoid secretions on left suctioned to clear. Follow up on BAL results CXR post bronch showed improved aeration of left lung. Pulm is following- Dr. Hogue CV: Off Levophed. Monitor HR and BP and maintain MAP> 65 mmHg. Serial lactic acid till clear-3.3 overnight from 4.3 yesterday Echo in February showed EF of 55-60% with no regional wall motion abnormalities. Continue with aspirin, Plavix, Lipitor. : Monitor renal function. I's and O's and avoid nephrotoxins. Nephrology- Dr. Salcedo, on peritoneal dialysis. GI: on Pepcid 10 mg IV q. 12 hours for GI prophylaxis. On tube feeds- Nepro currently at 20ml/hr with goal rate 40ml/hr ID: On cefepime and azithromycin. Monitor for signs of infections( fever and WBC). Follow up on BAL results Endo: SSI with Accu-Chek for glycemic control. Heme: Monitor CBC. GI prophylaxis with Pepcid, DVT prophylaxis with SCDs/ heparin sub-Q. Lines: Left IJ CVP placed 05/22 Follow up on labs Level 3 Anant Vogel MD May 23, 2017 08:17
[2017-05-23] MEDS: SODIUM CHLORIDE 0.9% FLUSH 10 ML FLUSH IV FLUSH SCH ×2 (08:28→20:45)
[2017-05-23] MEDS: FUROSEMIDE 40 MG/4 ML VIAL IV PUSH SCH (08:28)
[2017-05-23] MEDS: CALCITRIOL 0.25 MCG CAP PO SCH (08:29)
[2017-05-23] MEDS: GABAPENTIN 100 MG CAP PO SCH ×2 (08:29→20:46)
[2017-05-23] MEDS: LACTOBACILLUS ACIDOPHILUS TAB PO SCH ×3 (08:29→17:25)
[2017-05-23] MEDS: CITALOPRAM HYDROBROMIDE 20 MG TAB PO SCH (08:29)
[2017-05-23] MEDS: levETIRAcetam 500 MG TAB PO SCH (08:29)
[2017-05-23] MEDS: ASPIRIN EC 81 MG TABEC PO SCH (08:29)
[2017-05-23] MEDS: CALCIUM ACETATE 667 MG CAP NG SCH ×3 (08:29→17:25)
[2017-05-23] MEDS: CLOPIDOGREL 75 MG TAB PO SCH (08:29)
--- NOTE | 2017-05-23 08:29 | PD.PROCEDR ---
Central Line Procedure REASON FOR PROCEDURE Central venous access PROCEDURE PERFORMED Central line placement: Left IJ CVP performed on 05/22 CONSENT Informed consent for procedure was obtained . The risks and benefits of the procedure were discussed to include but limited to bleeding, clot formation, infection, and even . ANESTHESIA Local injection of 1% Lidocaine DESCRIPTION OF THE PROCEDURE The patient was placed in supine, mild Trendelenburg position. The area was exposed and cleansed with ChloraPrep, times two. Large sterile drape was used to cover the patient, with the site exposed, under sterile conditions including cap, face mask, sterile gown, and sterile gloves. On single attempt, the introducer needle was inserted with negative pressure in syringe and venous flash was obtained. The guide wire was then advanced without any restriction and the needle was removed. The dilator was used without any complications. Using Seldinger technique the catheter was advanced over the guide wire to a depth of 20 centimeters. The guide wire was removed. All ports were aspirated with dark venous blood return and flushed easily with sterile saline. All ports were capped. Antibiotic disc was placed around central line at puncture site. The central line was secured to the skin with two interrupted 2.0 silk sutures. The area was bandaged with sterile see-through central line bandage. RADIOLOGICAL DATA Ultrasound guidance was used to locate left IJ vein CXR post line placement showed no evidence of PTX COMPLICATIONS: No apparent complications ESTIMATED BLOOD LOSS: Less than 1 cc. Anant Vogel MD May 23, 2017 08:29
[2017-05-23 09:09] LABS: AUTOMATED NEUTROPHIL # 9.8 TH/MM3 (1.8-7.7); BASOPHIL % 0.2 % (0.0-2.0); HEMATOCRIT 28.7 % (39.0-51.0); HEMOGLOBIN 9.8 GM/DL (13.0-17.0); LYMPHOCYTE # 0.4 TH/MM3 (1.0-4.8); MEAN CELL VOLUME 89.6 FL (80.0-100.0); MEAN CORPUSCULAR HEMOGLOBIN 30.5 PG (27.0-34.0); MEAN CORPUSCULAR HGB CONC 34.1 % (32.0-36.0); MEAN PLATELET VOLUME 7.6 FL (7.0-11.0); MONO % 6.6 % (0.0-8.0); MONOCYTE # 0.7 TH/MM3 (0-0.9); NEUT % 89.2 % (16.0-70.0); PLATELET COUNT 204 TH/MM3 (150-450); RED BLOOD COUNT 3.21 MIL/MM3 (4.50-5.90); RED CELL DISTRIBUTION WIDTH 15.5 % (11.6-17.2)
[2017-05-23 09:31] LABS: BICARBONATE 26.4 MEQ/L (21.0-32.0); CALCIUM 9.2 MG/DL (8.5-10.1); CREATININE 8.08 MG/DL (0.60-1.30)
--- NOTE | 2017-05-23 10:02 | HHI.NPPN ---
Subjective Interval History on the vent. PD carried out. Off pressor Objective Data Data Vital Signs Date Time Temp Pulse Resp B/P (MAP) Pulse Ox O2 Delivery O2 Flow Rate FiO2 05/23/17 09:05 40 05/23/17 07:35 96 45 05/23/17 06:00 53 05/23/17 04:28 96 45 05/23/17 04:00 98.3 51 20 86/52 (63) 96 05/23/17 04:00 51 05/23/17 04:00 45 05/23/17 03:46 53 20 94/55 (68) 96 05/23/17 03:30 55 20 111/56 (74) 96 05/23/17 03:15 50 20 98/56 (70) 96 05/23/17 03:00 48 20 100/55 (70) 96 05/23/17 03:00 99/56 05/23/17 02:45 48 20 99/58 (72) 97 05/23/17 02:30 49 20 101/56 (71) 96 05/23/17 02:15 48 20 98/55 (69) 96 05/23/17 02:00 49 05/23/17 02:00 48 20 99/56 (70) 96 05/23/17 02:00 48 99/56 05/23/17 01:45 48 20 101/58 (72) 96 05/23/17 01:40 96 45 05/23/17 01:30 48 20 100/55 (70) 96 05/23/17 01:15 49 20 98/54 (69) 96 05/23/17 01:00 50 20 97/54 (68) 96 05/23/17 00:30 49 20 95/52 (66) 96 05/23/17 00:15 49 20 95/50 (65) 96 05/23/17 00:00 98.3 49 20 96/55 (69) 97 05/23/17 00:00 49 05/23/17 00:00 45 05/22/17 23:45 49 20 96/51 (66) 97 05/22/17 23:30 49 20 95/50 (65) 96 05/22/17 23:15 49 20 97/53 (68) 97 05/22/17 23:00 49 20 88/51 (63) 96 05/22/17 22:45 50 20 96/54 (68) 96 05/22/17 22:45 98 45 05/22/17 22:30 50 20 88/54 (65) 96 05/22/17 22:16 51 20 91/50 (64) 96 05/22/17 22:00 52 20 93/55 (68) 96 05/22/17 22:00 52 05/22/17 22:00 52 93/55 05/22/17 21:30 53 20 109/58 (75) 94 05/22/17 21:15 54 18 106/57 (73) 95 05/22/17 21:00 55 12 107/55 (72) 95 05/22/17 20:45 54 20 109/60 (76) 95 05/22/17 20:30 55 20 107/59 (75) 95 05/22/17 20:15 55 16 108/56 (73) 95 05/22/17 20:00 56 05/22/17 20:00 45 05/22/17 20:00 98.3 56 20 102/59 (73) 95 05/22/17 19:45 56 20 108/57 (74) 95 05/22/17 19:30 61 20 121/61 (81) 96 05/22/17 19:20 97 45 05/22/17 19:15 54 13 108/56 (73) 97 05/22/17 19:00 56 6 113/57 (75) 96 05/22/17 18:45 55 20 110/55 (73) 97 05/22/17 18:30 56 20 93/51 (65) 96 05/22/17 18:24 55 104/58 05/22/17 18:15 66 20 104/58 (73) 92 05/22/17 18:00 56 05/22/17 18:00 54 20 108/57 (74) 95 05/22/17 17:45 54 20 111/58 (75) 95 05/22/17 17:30 54 19 113/57 (75) 93 05/22/17 17:15 53 20 112/56 (74) 93 05/22/17 17:00 53 20 114/57 (76) 93 05/22/17 16:21 51 5 82/53 (63) 93 05/22/17 16:18 93 40 05/22/17 16:00 40 05/22/17 16:00 51 05/22/17 14:20 99 100 05/22/17 14:00 70 05/22/17 12:35 100 100 05/22/17 12:21 99.0 59 60 118/57 (77) 99 05/22/17 12:00 100 05/22/17 12:00 59 05/22/17 11:20 98 50 05/22/17 10:00 57 -: 05/23/17 0857 05/23/17 0857 Microbiology 05/22/17 Gram Stain, Received Pending 05/22/17 Bronchial Culture, Received Pending 05/22/17 Fungal Smear, Received Pending 05/22/17 Fungal Culture, Received Pending 05/22/17 Acid Fast Stain, Received Pending 05/22/17 Mycobacterial Culture, Received Pending Physical Exam General Appearance: Malnourished Eyes Eye Exam: Pupils Equal Pulmonary Resp Exam: Rhonchi, Decreased Bases Cardiology CV Exam: Regular Gastrointestinal/Abdomen GI Exam: Soft GI Remarks PD catheter is in place. Extremeties Extremities Exam: No Edema Neurologic Neuro Exam: Sedated Assessment/Plan Problem List: (1) End stage renal disease ICD Codes: N18.6 - End stage renal disease Status: Chronic Plan: We will continue PD for now, had treatment last night Typical regimen is 9 hrs, 4 cycles, 2500 ml; no last fill. Use 1/5% and 2.5% solution. Monitor UF, has had issues with catheter and fluid retention last admission Avoid IVF administration Change binder to calcium acetate with tube feed when diet is advanced Replace potassium. (2) Bronchial obstruction ICD Codes: J98.09 - Other diseases of bronchus, not elsewhere classified Status: Acute Plan: Pulmonary following s/p bronchoscopy on 05/22/17, with improved aeration in the left lung. Decreased FiO2 requirement. (3) Hypoxia ICD Codes: R09.02 - Hypoxemia Status: Resolved Plan: Due to obstruction See above. (4) Pneumonia ICD Codes: J18.9 - Pneumonia Status: Resolved Plan: Blood cultures in progress Ordered cefepime and Zithromax. (5) Hypertension ICD Codes: I10 - Essential (primary) hypertension Status: Chronic Plan: Antihypertensives on hold (6) Anemia ICD Codes: D64.9 - Anemia, unspecified Status: Chronic Plan: I will give a dose of Epogen today. Gabriel Salcedo MD May 23, 2017 10:02
[2017-05-23] MEDS ORDERED: EPOETIN ALFA 20,000 UNITS/ML VIAL SQ ONE (10:15)
--- NOTE | 2017-05-23 11:12 | EKG ---
Date Performed: 05/21/2017 Time Performed: 14:41:04 PTAGE: 82 years EKG: SINUS BRADYCARDIA WITH FIRST DEGREE AV BLOCK NONSPECIFIC T-WAVE ABNORMALITY ABNORMAL ECG Co mpared to PREVIOUS TRACING , the prior tracing appeared to be possibly junctional rhythm, where thi s shows Sinus rhythm . PREVIOUS TRACIN02/11/2017 21.54 DOCTOR: Arslan Nava Interpretating Date/Time 05/23/2017 11:11:34
[2017-05-23] MEDS: CEFEPIME INJ 1,000 MG in SODIUM CHLORIDE 0.9% INJ 100 ML IV SCH (17:23)
[2017-05-23] MEDS: AZITHROMYCIN 250 MG TAB PO SCH (17:24)
[2017-05-23] MEDS: ATORVASTATIN 80 MG TAB PO SCH (20:45)
[2017-05-23] MEDS: levETIRAcetam 250 MG TAB PO SCH (20:45)
[2017-05-24] VITALS (28 sets, daily range): BP systolic 83–147; BP diastolic 47–65; PULSE 45–67; RESP 11–19; TEMP 98.3–98.8; O2SAT 85–99
[2017-05-24] MEDS: RESP: ALBUTEROL 2.5 MG/IPRATROPIUM 0.5 MG NEB (PRN) NEB (00:53)
[2017-05-24] MEDS: HYDROCORTISONE SOD SUCCINATE 100 MG VIAL IV PUSH SCH ×2 (03:57→17:09)
[2017-05-24] MEDS: INSULIN NovoLIN REGULAR SUPPLEMENTAL SCALE SQ SCH ×5 (03:57→20:00)
[2017-05-24] MEDS: CHLORHEXIDINE GLUCONATE 2 % 1 PACK (2 CLOTHS)(taper/protocol) TOPICAL SCH (03:57)
[2017-05-24] MEDS: hydrALAZINE HCL 10 MG TAB PO SCH ×3 (03:58→21:08)
[2017-05-24] MEDS: HEPARIN SODIUM - SQ 10,000 UNITS/ML VIAL SQ SCH ×2 (03:58→17:10)
[2017-05-24 05:01] LABS: BICARBONATE 28.4 MEQ/L (21.0-32.0); CALCIUM 9.1 MG/DL (8.5-10.1); CREATININE 7.9 MG/DL (0.60-1.30)
[2017-05-24 05:07] LABS: BASOPHIL % 0.2 % (0.0-2.0); HEMATOCRIT 26.7 % (39.0-51.0); LYMPH % 5.3 % (9.0-44.0); LYMPHOCYTE # 0.4 TH/MM3 (1.0-4.8); MEAN CORPUSCULAR HEMOGLOBIN 31.1 PG (27.0-34.0); MEAN CORPUSCULAR HGB CONC 33.8 % (32.0-36.0); MEAN PLATELET VOLUME 8.3 FL (7.0-11.0); MONO % 8.3 % (0.0-8.0); MONOCYTE # 0.7 TH/MM3 (0-0.9); NEUT % 86.2 % (16.0-70.0); PLATELET COUNT 179 TH/MM3 (150-450); RED CELL DISTRIBUTION WIDTH 14.8 % (11.6-17.2); WHITE BLOOD COUNT 8.1 TH/MM3 (4.0-11.0)
--- NOTE | 2017-05-24 07:07 | RADRPT ---
EXAM DATE/TIME: 05/24/2017 06:49 [place] COMPARISON: CHEST SINGLE AP, May 22, 2017, 17:03. INDICATIONS : Shortness of breath. MEDICAL HISTORY : Hypertension. Cardiovascular disease. Chronic obstructive pulmonary disease SURGICAL HISTORY : Coronary artery stent. ENCOUNTER: Subsequent ACUITY: 2 days PAIN SCORE: 0/10 LOCATION: Bilateral chest FINDINGS: Increasing parenchymal changes left base. Right lung is clear. Central lines in the left innominate vein. CONCLUSION: Increasing parenchymal changes left base. Kian Adkins MD FACR on May 24, 2017 at 7:05 Board Certified Radiologist. This report was verified electronically.
[2017-05-24] MEDS: RESP: ACETYLCYSTEINE 10% 30 ML NEB NEB SCH ×4 (07:19→20:10)
[2017-05-24] MEDS: RESP: ALBUTEROL 2.5 MG/IPRATROPIUM 0.5 MG NEB (SCH) NEB ×4 (07:19→20:10)
--- NOTE | 2017-05-24 07:46 | HHI.CCPN ---
Subjective Remarks/Hospital Course Patient is an 82-year-old male with a past medical history of hypertension, obstructive sleep apnea on CPAP, COPD, CVA, end-stage renal disease on peritoneal dialysis who was admitted under hospitalist service on 05/21/2017 for respiratory distress. He had a chest x-ray on arrival which showed complete opacification of the left hemithorax with left shift of the mediastinum. Subsequently, he had CT chest without contrast which showed collapse of the left lung that appears to be due to extensive debris within the left main stem bronchus extending peripherally. No obvious hilar mass seen. A pleural parenchymal atelectasis or scarring posteriorly in the superior segment of right lower lobe noted as well. The patient was seen by Dr. Hogue from pulmonary service and scheduled to undergo a bronchoscopy. He had an ABG early this morning on a nonrebreather mask which showed acute hypoxemic respiratory failure with a pH of 7.40, CO2 of 37, PaO2 59, saturation 87%. The patient was placed on BiPAP with 100% FIO2 and transferred to [facility] [place]. Critical care medicine was consulted for critical care management. When seen, the patient had a saturation of 90% on 100% FIO2. Due to worsening respiratory status, he was immediately intubated by myself and placed on full mechanical ventilation. Most of the history was obtained from reviewing the medical records. A repeat chest x-ray this morning prior to intubation showed no significant change with complete collapse of the left lung. 05/23 Patient remains intubated, sedated with Fentanyl drip. Required Levophed post intubation now off pressor. Afebrile. s/p bronch yesterday showed thick mucoid secretions/mucous plugs on left suctioned to clear CXR post bronch showed improved aeration on left. 05/24 Patient was extubated yesterday placed on partial non rebreather overnight. Awake and alert. Afebrile. Objective Vital Signs Date Time Temp Pulse Resp B/P (MAP) Pulse Ox O2 Delivery O2 Flow Rate FiO2 05/24/17 07:17 98 50 05/24/17 06:00 47 05/24/17 04:00 98.3 18 98/53 (68) 05/24/17 02:00 Partial Non-Rebreather 12.00 Intake and Output 05/24/17 05/24/17 05/25/17 08:00 16:00 00:00 Intake Total 100 ml Balance 100 ml Result Diagram: 05/24/17 0350 05/24/17 0350 Other Results Laboratory Tests Test 05/23/17 08:57 05/23/17 10:20 05/23/17 18:28 05/24/17 03:50 White Blood Count 11.0 TH/MM3 8.1 TH/MM3 Red Blood Count 3.21 MIL/MM3 2.90 MIL/MM3 Hemoglobin 9.8 GM/DL 9.0 GM/DL Hematocrit 28.7 % 26.7 % Mean Corpuscular Volume 89.6 FL 92.0 FL Mean Corpuscular Hemoglobin 30.5 PG 31.1 PG Mean Corpuscular Hemoglobin Concent 34.1 % 33.8 % Red Cell Distribution Width 15.5 % 14.8 % Platelet Count 204 TH/MM3 179 TH/MM3 Mean Platelet Volume 7.6 FL 8.3 FL Neutrophils (%) (Auto) 89.2 % 86.2 % Lymphocytes (%) (Auto) 4.0 % 5.3 % Monocytes (%) (Auto) 6.6 % 8.3 % Eosinophils (%) (Auto) 0.0 % 0.0 % Basophils (%) (Auto) 0.2 % 0.2 % Neutrophils # (Auto) 9.8 TH/MM3 7.0 TH/MM3 Lymphocytes # (Auto) 0.4 TH/MM3 0.4 TH/MM3 Monocytes # (Auto) 0.7 TH/MM3 0.7 TH/MM3 Eosinophils # (Auto) 0.0 TH/MM3 0.0 TH/MM3 Basophils # (Auto) 0.0 TH/MM3 0.0 TH/MM3 CBC Comment DIFF FINAL DIFF FINAL Differential Comment Blood Urea Nitrogen 63 MG/DL 64 MG/DL Creatinine 8.08 MG/DL 7.90 MG/DL Random Glucose 103 MG/DL 139 MG/DL Calcium Level 9.2 MG/DL 9.1 MG/DL Sodium Level 140 MEQ/L 137 MEQ/L Potassium Level 3.4 MEQ/L 3.2 MEQ/L Chloride Level 101 MEQ/L 100 MEQ/L Carbon Dioxide Level 26.4 MEQ/L 28.4 MEQ/L Anion Gap 13 MEQ/L 9 MEQ/L Estimat Glomerular Filtration Rate 6 ML/MIN 7 ML/MIN Lactic Acid Level 4.0 mmol/L 2.2 mmol/L Blood Gas Puncture Site LT RADIAL Blood Gas Patient Temperature 98.6 Blood Gas HCO3 24 mmol/L Blood Gas Base Excess -0.4 mmol/L Blood Gas Oxygen Saturation 93 % Arterial Blood pH 7.38 Arterial Blood Partial Pressure CO2 41 mmHg Arterial Blood Partial Pressure O2 82 mmHg Arterial Blood Oxygen Content 13.2 Vol % Arterial Blood Carboxyhemoglobin 0.7 % Arterial Blood Methemoglobin 1.2 % Blood Gas Hemoglobin 10.0 G/DL Oxygen Delivery Device VENTILATOR Blood Gas Ventilator Setting CPAP 5/10PS Blood Gas Inspired Oxygen 40 % Imaging Last Impressions Head CT 05/22/17 0000 Signed Impressions: Service Date/Time: Monday, May 22, 2017 12:22 - CONCLUSION: Negative for acute process Kian Adkins MD FACR Chest X-Ray 05/22/17 0000 Signed Impressions: Service Date/Time: Monday, May 22, 2017 17:03 - CONCLUSION: 1. Left IJ central line in the SVC junction without pneumothorax. 2. Patchy airspace disease in the left mid to lower lung zones. Hunter Daniel MD Abdomen X-Ray 05/22/17 0000 Signed Impressions: Service Date/Time: Monday, May 22, 2017 10:27 - CONCLUSION: No evidence of obstruction. Nasogastric tube across the GE junction. No free air. Kian Adkins MD FACR Chest CT 05/21/17 0000 Signed Impressions: Service Date/Time: May 16:29 - CONCLUSION: 1. Complete collapse of the left lung appears to be due to extensive debris within the left mainstem bronchus extending peripherally. Bronchoscopy is recommended for further evaluation and possible treatment. 2. The esophagus appears to impinge on the posterior wall of the trachea and may partially obscure the lumen in the upper thorax. 3. No obvious hilar mass lesion although anatomic detail is limited due to the adjacent collapsed lung. This area can be reevaluated after clearing of the left mainstem bronchus and reexpansion of the left lung. 4. Pleural-parenchymal atelectasis or scarring posteriorly in the superior segment of the right lower lobe. Right lung is otherwise clear. 5. Atherosclerotic calcification of the coronary arteries. Calcification of the mitral valve annulus Gelacio Allen MD Objective Remarks GENERAL: Patient is 82 yo lying in bed in NAD SKIN: Warm and dry. HEAD: Normocephalic. EYES: No scleral icterus. No injection or drainage. NECK: Supple, trachea midline. No JVD or lymphadenopathy. CARDIOVASCULAR: Regular rate and rhythm without murmurs, gallops, or rubs. RESPIRATORY: Breath sounds equal bilaterally. No accessory muscle use.Few coarse BS GASTROINTESTINAL: Abdomen soft, non-tender, nondistended. MUSCULOSKELETAL: No cyanosis, or edema. Neuro: Awake and alert A/P Assessment and Plan 1. Res Insuff - extubated 05/23 2. s/p opacification of left lung due to mucous plugs -improved post bronch 3. ESRD on peritoneal dialysis. 4. History of hypertension.] 5 CAD, s/p CALLIE to RCA in Mar 6. COPD 7. History of sleep apnea on CPAP at home 8. History of cerebrovascular accident. Plan Neuro: Awake and alert avoid sedatives CT brain 05/22- no acute process Pulm: Continue with oxygen and maintain sats >92%. Bronchodilators ( DuoNeb, Mucomyst), Taper steroids- decrease Hydrocortisone 50mg Q12 NIPPV PRN for resp distress and nocturnally qhs ( on CPAP at home for MIRELA) s/p bronch 05/22 - thick mucoid secretions on left suctioned to clear. Follow up on BAL results CXR post bronch showed improved aeration of left lung. Pulm is following- Dr. Hogue Check CXR today CV: Monitor HR and BP and maintain MAP> 65 mmHg. Lactic acid 2.2 from 4.0 Echo in February showed EF of 55-60% with no regional wall motion abnormalities. Continue with aspirin, Plavix, Lipitor. : Monitor renal function. I's and O's and avoid nephrotoxins. Nephrology- Dr. Salcedo, on peritoneal dialysis. On Lasix 40mg daily GI: on Pepcid 10 mg IV q. 12 hours for GI prophylaxis. Speech eval, diet per speech ID: On cefepime and azithromycin. Monitor for signs of infections( fever and WBC). Follow up on BAL results Endo: SSI with Accu-Chek for glycemic control. Heme: Monitor CBC. GI prophylaxis with Pepcid, DVT prophylaxis with SCDs/ heparin sub-Q. Lines: Left IJ CVP placed 05/22 Level 2 Anant Vogel MD May 24, 2017 07:46
[2017-05-24] MEDS: SODIUM CHLORIDE 0.9% FLUSH 10 ML FLUSH IV FLUSH SCH ×2 (08:28→21:00)
[2017-05-24] MEDS: FUROSEMIDE 40 MG/4 ML VIAL IV PUSH SCH (08:29)
[2017-05-24] MEDS: CALCITRIOL 0.25 MCG CAP PO SCH (08:31)
[2017-05-24] MEDS: levETIRAcetam 500 MG TAB PO SCH (08:31)
[2017-05-24] MEDS: GABAPENTIN 100 MG CAP PO SCH ×2 (08:31→21:08)
[2017-05-24] MEDS: LACTOBACILLUS ACIDOPHILUS TAB PO SCH ×3 (08:31→17:11)
[2017-05-24] MEDS: CLOPIDOGREL 75 MG TAB PO SCH (08:32)
[2017-05-24] MEDS: CITALOPRAM HYDROBROMIDE 20 MG TAB PO SCH (08:32)
[2017-05-24] MEDS: ASPIRIN EC 81 MG TABEC PO SCH (08:32)
[2017-05-24] MEDS: CALCIUM ACETATE 667 MG CAP NG SCH ×3 (08:33→17:23)
[2017-05-24] MEDS ORDERED: POTASSIUM CHLOR 20 MEQ PREMIX 100 ML IV ONE (09:00)
--- NOTE | 2017-05-24 12:03 | HHI.NPPN ---
Subjective Interval History patient was seen and examined. He is on BIPAP. Discussed with Dr. Hubbard. Review of Systems General Constitutional: Fatigue Objective Data Data 05/24/17 05/25/17 19:00 07:00 Intake Total 100 ml Output Total 50 ml Balance 50 ml IV Total 100 ml Peritoneal Fluid 50 ml Vital Signs Date Time Temp Pulse Resp B/P (MAP) Pulse Ox O2 Delivery O2 Flow Rate FiO2 05/24/17 11:10 97 40 05/24/17 10:00 50 05/24/17 08:00 50 05/24/17 08:00 98.6 50 11 118/56 (76) 99 05/24/17 07:17 98 50 05/24/17 07:15 99 Bi-Pap 60 05/24/17 07:00 90 Partial Non-Rebreather 05/24/17 06:00 47 05/24/17 04:00 49 05/24/17 04:00 98.3 49 18 98/53 (68) 94 05/24/17 03:30 47 11 99/57 (71) 98 05/24/17 03:00 48 13 96/53 (67) 98 05/24/17 02:31 48 13 104/58 (73) 98 05/24/17 02:30 48 12 98 05/24/17 02:01 51 16 147/65 (92) 97 05/24/17 02:00 97 Partial Non-Rebreather 12.00 05/24/17 02:00 52 17 95 05/24/17 02:00 52 05/24/17 01:52 92 Partial Rebreather 12.00 05/24/17 01:33 52 12 97/54 (68) 86 05/24/17 01:30 51 13 83/47 (59) 87 05/24/17 01:01 52 16 87/54 (65) 92 05/24/17 01:00 52 19 92 05/24/17 00:54 91 BiPAP 15.00 05/24/17 00:30 58 18 91/61 (71) 94 05/24/17 00:20 88 Bi-Pap 16.00 05/24/17 00:00 98.3 53 13 91/61 (71) 85 05/24/17 00:00 53 05/23/17 23:30 57 22 107/56 (73) 84 05/23/17 23:00 47 20 95/51 (66) 100 05/23/17 22:30 48 13 88/55 (66) 100 05/23/17 22:00 48 12 109/53 (71) 100 05/23/17 22:00 48 05/23/17 21:47 95 Nasal Cannula 4.00 05/23/17 21:30 48 12 96/54 (68) 97 05/23/17 21:00 52 14 107/53 (71) 97 05/23/17 20:30 48 11 103/55 (71) 96 05/23/17 20:00 52 05/23/17 20:00 95 Nasal Cannula 2.00 05/23/17 20:00 98.4 50 11 107/54 (71) 96 05/23/17 18:00 63 05/23/17 16:00 51 05/23/17 16:00 98.7 51 9 93/48 (63) 94 05/23/17 14:00 58 05/23/17 12:00 63 05/23/17 12:00 98.4 63 20 111/56 (74) 95 -: 05/24/17 0350 05/24/17 0350 Physical Exam General Appearance: Malnourished Eyes Eye Exam: Pupils Equal Pulmonary Resp Exam: Rhonchi, Decreased Bases Cardiology CV Exam: Regular Gastrointestinal/Abdomen GI Exam: Soft GI Remarks PD catheter is in place. Extremeties Extremities Exam: No Edema Neurologic Neuro Exam: Sedated Assessment/Plan Problem List: (1) End stage renal disease ICD Codes: N18.6 - End stage renal disease Status: Chronic Plan: We will continue PD for now, had treatment last night, however net UF was only 50 ml. Typical regimen is 9 hrs, 4 cycles, 2500 ml; no last fill.We will use 2.5% dextrose PD solution today. Monitor UF, has had issues with catheter and fluid retention last admission Avoid IVF administration Replace potassium as needed. Monitor phosphorus level periodically. (2) Bronchial obstruction ICD Codes: J98.09 - Other diseases of bronchus, not elsewhere classified Status: Acute Plan: Patient appears to have redeveloped atelectasis of the left lung. Currently on BIPAP, may need to be back on ventilator if his condition worsens. (3) Hypoxia ICD Codes: R09.02 - Hypoxemia Status: Resolved Plan: See above. (4) Pneumonia ICD Codes: J18.9 - Pneumonia Status: Resolved Plan: Blood cultures in progress Ordered cefepime and Zithromax. (5) Hypertension ICD Codes: I10 - Essential (primary) hypertension Status: Chronic Plan: Antihypertensives on hold (6) Anemia ICD Codes: D64.9 - Anemia, unspecified Status: Chronic Plan: Given Epogen on 05/23/17 Gabriel Salcedo MD May 24, 2017 12:03
[2017-05-24] MEDS: guaiFENesin SOLUTION 200 MG/10 ML CUP PO SCH ×2 (12:16→21:08)
[2017-05-24] MEDS: CEFEPIME INJ 1,000 MG in SODIUM CHLORIDE 0.9% INJ 100 ML IV SCH (17:08)
[2017-05-24] MEDS: AZITHROMYCIN 250 MG TAB PO SCH (17:11)
[2017-05-24] MEDS: SENNOSIDES SYRUP 8.8 MG/5 ML CUP PO SCH (18:00)
[2017-05-24] MEDS: levETIRAcetam 250 MG TAB PO SCH (21:08)
[2017-05-24] MEDS: ATORVASTATIN 80 MG TAB PO SCH (21:08)
[2017-05-24] MEDS: DOCUSATE SODIUM 100 MG CAP PO SCH (21:09)
[2017-05-25] VITALS (19 sets, daily range): BP systolic 101–158; BP diastolic 52–86; PULSE 40–61; RESP 14–24; TEMP 98.4–99.1; O2SAT 83–100
[2017-05-25] MEDS: INSULIN NovoLIN REGULAR SUPPLEMENTAL SCALE SQ SCH ×6 (00:42→20:00)
[2017-05-25] MEDS: CHLORHEXIDINE GLUCONATE 2 % 1 PACK (2 CLOTHS)(taper/protocol) TOPICAL SCH (03:26)
[2017-05-25] MEDS: HYDROCORTISONE SOD SUCCINATE 100 MG VIAL IV PUSH SCH ×2 (03:26→16:37)
[2017-05-25] MEDS: HEPARIN SODIUM - SQ 10,000 UNITS/ML VIAL SQ SCH ×2 (04:42→16:39)
--- NOTE | 2017-05-25 04:58 | RADRPT ---
EXAM DATE/TIME: 05/25/2017 03:36 [facility] COMPARISON: No previous studies available for comparison. INDICATIONS : Shortness of breath, possible pulmonary disease. MEDICAL HISTORY : Hypertension. Cardiovascular disease. Chronic obstructive pulmonary disease. SURGICAL HISTORY : Coronary artery stent. ENCOUNTER: Subsequent ACUITY: 3 days PAIN SCORE: Non-responsive. LOCATION: Bilateral chest FINDINGS: Mild left base consolidation and small pleural effusion present, improved. Right lung remains clear. No pneumothorax. Heart size upper limits of normal. Again seen is a left internal jugular central venous catheter with tip in the superior vena cava. CONCLUSION: Considerably decreased consolidation and effusion at the left lung base. Joe Hdz MD on May 25, 2017 at 4:55 Board Certified Radiologist. This report was verified electronically.
[2017-05-25 05:07] LABS: AUTOMATED NEUTROPHIL # 5.5 TH/MM3 (1.8-7.7); BASOPHIL % 0.5 % (0.0-2.0); EOSINOPHIL % 0.1 % (0.0-4.0); HEMATOCRIT 29.1 % (39.0-51.0); LYMPH % 11.1 % (9.0-44.0); LYMPHOCYTE # 0.8 TH/MM3 (1.0-4.8); MEAN CELL VOLUME 92.9 FL (80.0-100.0); MEAN CORPUSCULAR HEMOGLOBIN 31.9 PG (27.0-34.0); MEAN CORPUSCULAR HGB CONC 34.3 % (32.0-36.0); MEAN PLATELET VOLUME 8.3 FL (7.0-11.0); MONO % 10.8 % (0.0-8.0); MONOCYTE # 0.8 TH/MM3 (0-0.9); NEUT % 77.5 % (16.0-70.0); PLATELET COUNT 167 TH/MM3 (150-450); RED BLOOD COUNT 3.13 MIL/MM3 (4.50-5.90); RED CELL DISTRIBUTION WIDTH 15.3 % (11.6-17.2); WHITE BLOOD COUNT 7.1 TH/MM3 (4.0-11.0)
[2017-05-25 05:15] LABS: BICARBONATE 29.7 MEQ/L (21.0-32.0); CALCIUM 9.2 MG/DL (8.5-10.1); CREATININE 8.03 MG/DL (0.60-1.30); PHOSPHORUS 5.3 MG/DL (2.5-4.9)
[2017-05-25] MEDS: hydrALAZINE HCL 10 MG TAB PO SCH ×3 (06:00→20:33)
[2017-05-25] MEDS: RESP: ACETYLCYSTEINE 10% 30 ML NEB NEB SCH ×4 (08:00→21:34)
[2017-05-25] MEDS: SODIUM CHLORIDE 0.9% FLUSH 10 ML FLUSH IV FLUSH SCH ×2 (08:41→20:34)
[2017-05-25] MEDS: FUROSEMIDE 40 MG/4 ML VIAL IV PUSH SCH (08:42)
[2017-05-25] MEDS: CLOPIDOGREL 75 MG TAB PO SCH (08:42)
[2017-05-25] MEDS: CALCIUM ACETATE 667 MG CAP NG SCH ×3 (08:42→16:39)
[2017-05-25] MEDS: GABAPENTIN 100 MG CAP PO SCH ×2 (08:42→20:29)
[2017-05-25] MEDS: CITALOPRAM HYDROBROMIDE 20 MG TAB PO SCH (08:42)
[2017-05-25] MEDS: ASPIRIN EC 81 MG TABEC PO SCH (08:42)
[2017-05-25] MEDS: LACTOBACILLUS ACIDOPHILUS TAB PO SCH ×3 (08:42→16:39)
[2017-05-25] MEDS: levETIRAcetam 500 MG TAB PO SCH (08:43)
[2017-05-25] MEDS: DOCUSATE SODIUM 100 MG CAP PO SCH ×2 (08:43→20:29)
[2017-05-25] MEDS: CALCITRIOL 0.25 MCG CAP PO SCH (08:43)
[2017-05-25] MEDS: POTASSIUM CHLORIDE 20 MEQ CONTROLLED RELEASE TAB PO SCH (08:43)
[2017-05-25] MEDS: RESP: ALBUTEROL 2.5 MG/IPRATROPIUM 0.5 MG NEB (SCH) NEB ×4 (08:59→21:34)
[2017-05-25] MEDS: SENNOSIDES SYRUP 8.8 MG/5 ML CUP PO SCH (09:00)
--- NOTE | 2017-05-25 09:05 | HHI.NPPN ---
Subjective Interval History UF of slightly more than 600 ml today: used 2.5 % dextrose PD solution. Patient is slightly disoriented, wanted his to be present. He said " I am losing my mind". Review of Systems General Constitutional: Fatigue Objective Data Data 05/25/17 05/26/17 19:00 07:00 Output Total 684 ml Balance -684 ml Peritoneal Fluid 684 ml Vital Signs Date Time Temp Pulse Resp B/P (MAP) Pulse Ox O2 Delivery O2 Flow Rate FiO2 05/25/17 06:00 54 05/25/17 05:31 94 Venturi Mask 6.00 50 05/25/17 04:00 98.8 56 18 158/86 (110) 96 05/25/17 04:00 52 05/25/17 04:00 99 Partial Rebreather 15.00 05/25/17 02:00 40 05/25/17 00:14 93 55 05/25/17 00:00 44 05/25/17 00:00 98.7 44 15 111/55 (73) 93 05/24/17 22:00 67 05/24/17 20:10 93 55 05/24/17 20:00 45 05/24/17 20:00 98.8 45 15 104/54 (71) 91 05/24/17 19:00 100 Mechanical Ventilator 40 05/24/17 18:00 48 05/24/17 16:00 98.7 50 13 116/59 (78) 94 05/24/17 16:00 50 05/24/17 15:26 92 45 05/24/17 14:00 54 05/24/17 12:00 98.8 50 13 110/58 (75) 92 05/24/17 12:00 50 05/24/17 11:10 97 40 05/24/17 10:00 50 -: 05/25/17 0350 05/25/17 0350 Physical Exam General Appearance: Malnourished Eyes Eye Exam: Pupils Equal Pulmonary Resp Exam: Rhonchi, Decreased Bases Cardiology CV Exam: Regular Gastrointestinal/Abdomen GI Exam: Soft GI Remarks PD catheter is in place. Extremeties Extremities Exam: No Edema Neurologic Neuro Exam: Sedated Assessment/Plan Problem List: (1) End stage renal disease ICD Codes: N18.6 - End stage renal disease Status: Chronic Plan: We will continue PD for now, may switch to HD if it is not working well. Typical regimen is 9 hrs, 4 cycles, 2500 ml; no last fill.We will use 2.5% dextrose PD solution today. Monitor UF, has had issues with catheter and fluid retention last admission Avoid IVF administration Replace potassium as needed. Monitor phosphorus level periodically. (2) Bronchial obstruction ICD Codes: J98.09 - Other diseases of bronchus, not elsewhere classified Status: Acute Plan: Patient appears to have redeveloped atelectasis of the left lung. Off BIPAP, currently on NRB (3) Hypoxia ICD Codes: R09.02 - Hypoxemia Status: Resolved Plan: See above. (4) Pneumonia ICD Codes: J18.9 - Pneumonia Status: Resolved Plan: Blood cultures in progress Ordered cefepime and Zithromax. (5) Hypertension ICD Codes: I10 - Essential (primary) hypertension Status: Chronic Plan: Antihypertensives on hold. Monitor BP, (6) Anemia ICD Codes: D64.9 - Anemia, unspecified Status: Chronic Plan: Given Epogen on 05/23/17 Gabriel Salcedo MD May 25, 2017 09:05
[2017-05-25] MEDS: guaiFENesin SOLUTION 200 MG/10 ML CUP PO SCH ×2 (10:56→20:29)
--- NOTE | 2017-05-25 15:11 | HHI.CCPN ---
Subjective Remarks/Hospital Course Patient is an 82-year-old male with a past medical history of hypertension, obstructive sleep apnea on CPAP, COPD, CVA, end-stage renal disease on peritoneal dialysis who was admitted under hospitalist service on 05/21/2017 for respiratory distress. He had a chest x-ray on arrival which showed complete opacification of the left hemithorax with left shift of the mediastinum. Subsequently, he had CT chest without contrast which showed collapse of the left lung that appears to be due to extensive debris within the left main stem bronchus extending peripherally. No obvious hilar mass seen. A pleural parenchymal atelectasis or scarring posteriorly in the superior segment of right lower lobe noted as well. The patient was seen by Dr. Hogue from pulmonary service and scheduled to undergo a bronchoscopy. He had an ABG early this morning on a nonrebreather mask which showed acute hypoxemic respiratory failure with a pH of 7.40, CO2 of 37, PaO2 59, saturation 87%. The patient was placed on BiPAP with 100% FIO2 and transferred to [facility] [place]. Critical care medicine was consulted for critical care management. When seen, the patient had a saturation of 90% on 100% FIO2. Due to worsening respiratory status, he was immediately intubated by myself and placed on full mechanical ventilation. Most of the history was obtained from reviewing the medical records. A repeat chest x-ray this morning prior to intubation showed no significant change with complete collapse of the left lung. 05/23 Patient remains intubated, sedated with Fentanyl drip. Required Levophed post intubation now off pressor. Afebrile. s/p bronch yesterday showed thick mucoid secretions/mucous plugs on left suctioned to clear CXR post bronch showed improved aeration on left. 05/24 Patient was extubated yesterday placed on partial non rebreather overnight. Awake and alert. Afebrile. 05/25: Patient remains on partial nonrebreather. Unable to wean remains hypoxic. Intermittently confused oriented to person and somewhat to place Objective Vital Signs Date Time Temp Pulse Resp B/P (MAP) Pulse Ox O2 Delivery O2 Flow Rate FiO2 05/25/17 12:00 47 05/25/17 12:00 98.6 14 109/77 (88) 91 05/25/17 09:08 Partial Rebreather 15.00 05/25/17 07:00 90 Intake and Output 05/25/17 05/25/17 05/26/17 08:00 16:00 00:00 Intake Total 240 ml Output Total 684 ml Balance -444 ml Result Diagram: 05/25/17 0350 05/25/17 0350 Imaging Last Impressions Head CT 05/22/17 0000 Signed Impressions: Service Date/Time: Monday, May 22, 2017 12:22 - CONCLUSION: Negative for acute process Kian Adkins MD FACR Chest X-Ray 05/22/17 0000 Signed Impressions: Service Date/Time: Monday, May 22, 2017 17:03 - CONCLUSION: 1. Left IJ central line in the SVC junction without pneumothorax. 2. Patchy airspace disease in the left mid to lower lung zones. Hunter Daniel MD Abdomen X-Ray 05/22/17 0000 Signed Impressions: Service Date/Time: Monday, May 22, 2017 10:27 - CONCLUSION: No evidence of obstruction. Nasogastric tube across the GE junction. No free air. Kian Adkins MD FACR Chest CT 05/21/17 0000 Signed Impressions: Service Date/Time: May 16:29 - CONCLUSION: 1. Complete collapse of the left lung appears to be due to extensive debris within the left mainstem bronchus extending peripherally. Bronchoscopy is recommended for further evaluation and possible treatment. 2. The esophagus appears to impinge on the posterior wall of the trachea and may partially obscure the lumen in the upper thorax. 3. No obvious hilar mass lesion although anatomic detail is limited due to the adjacent collapsed lung. This area can be reevaluated after clearing of the left mainstem bronchus and reexpansion of the left lung. 4. Pleural-parenchymal atelectasis or scarring posteriorly in the superior segment of the right lower lobe. Right lung is otherwise clear. 5. Atherosclerotic calcification of the coronary arteries. Calcification of the mitral valve annulus Gelacio Allen MD Objective Remarks GENERAL: Patient is 82 yo lying in bed on PNRB SKIN: Warm and dry. HEAD: Normocephalic. EYES: No scleral icterus. No injection or drainage. NECK: Supple, trachea midline. No JVD or lymphadenopathy. CARDIOVASCULAR: Regular rate and rhythm without murmurs, gallops, or rubs. RESPIRATORY: Breath sounds equal bilaterally, but diminished at the bases. No accessory muscle use.Few coarse BS GASTROINTESTINAL: Abdomen soft, non-tender, nondistended. MUSCULOSKELETAL: No cyanosis, or edema. Neuro: Awake and alert. Oriented to person and somewhat to place. Moves all extremities A/P Assessment and Plan Assessment: Acute hypoxemic respiratory failure extubated 05/23 s/p opacification of left lung due to mucous plugs-improved post bronch ESRD on peritoneal dialysis. History of hypertension.] CAD, s/p CALLIE to RCA in Feb COPD History of sleep apnea on CPAP at home History of cerebrovascular accident. Plan Neuro: Awake and alert avoid sedatives CT brain 05/22- no acute process Pulm: Continue with oxygen and maintain sats >92%. Currently requiring partial nonrebreather Bronchodilators ( DuoNeb, Mucomyst), Taper steroids- Hydrocortisone 50mg Q12 NIPPV PRN for resp distress and nocturnally qhs ( on CPAP at home for MIRELA) s/p bronch 05/22 - thick mucoid secretions on left suctioned to clear. Follow up on BAL results CXR post bronch showed improved aeration of left lung. Pulm is following- Dr. Hogue Add Symbicort Spiriva. Continues EzPAP add Acapella CV: Monitor HR and BP and maintain MAP> 65 mmHg. Lactic acid 2.2 from 4.0 Echo in February showed EF of 55-60% with no regional wall motion abnormalities. Continue with aspirin, Plavix, Lipitor. : Monitor renal function. I's and O's and avoid nephrotoxins. Nephrology- Dr. Salcedo, on peritoneal dialysis. On Lasix 40mg daily GI: on Pepcid 10 mg IV q. 12 hours for GI prophylaxis. Speech eval, diet per speech ID: On cefepime and azithromycin. Monitor for signs of infections( fever and WBC). Follow up on BAL results Endo: SSI with Accu-Chek for glycemic control. Heme: Monitor CBC. GI prophylaxis with Pepcid, DVT prophylaxis with SCDs/ heparin sub-Q. Lines: Left IJ CVP placed 05/22 Level 2 Santiago Diaz MD May 25, 2017 15:11
[2017-05-25] MEDS ORDERED: HALOPERIDOL LACTATE 5 MG/ML AMP IV ONE (16:15)
[2017-05-25] MEDS ORDERED: HALOPERIDOL LACTATE 5 MG/ML AMP IV PRN (16:15)
[2017-05-25] MEDS: AZITHROMYCIN 250 MG TAB PO SCH (16:38)
[2017-05-25] MEDS: CEFEPIME INJ 1,000 MG in SODIUM CHLORIDE 0.9% INJ 100 ML IV SCH (16:39)
[2017-05-25] MEDS: ATORVASTATIN 80 MG TAB PO SCH (20:29)
[2017-05-25] MEDS: levETIRAcetam 250 MG TAB PO SCH (20:29)
[2017-05-25] MEDS: BUDESONIDE-FORMOTEROL 160/4.5 MCG INHALER INH SCH (20:29)
[2017-05-26] VITALS (29 sets, daily range): BP systolic 76–145; BP diastolic 47–98; PULSE 57–72; RESP 18–27; TEMP 98.4–99; O2SAT 88–100
[2017-05-26] MEDS: RESP: ALBUTEROL 2.5 MG/IPRATROPIUM 0.5 MG NEB (SCH) NEB ×6 (01:11→21:26)
[2017-05-26] MEDS: INSULIN NovoLIN REGULAR SUPPLEMENTAL SCALE SQ SCH ×6 (04:00→19:34)
[2017-05-26 04:49] LABS: AUTOMATED NEUTROPHIL # 7.8 TH/MM3 (1.8-7.7); BASOPHIL % 0.2 % (0.0-2.0); EOSINOPHIL % 0.4 % (0.0-4.0); HEMATOCRIT 31.4 % (39.0-51.0); HEMOGLOBIN 10.6 GM/DL (13.0-17.0); LYMPH % 8.8 % (9.0-44.0); LYMPHOCYTE # 0.8 TH/MM3 (1.0-4.8); MEAN CELL VOLUME 91.6 FL (80.0-100.0); MEAN CORPUSCULAR HGB CONC 33.9 % (32.0-36.0); MEAN PLATELET VOLUME 8.4 FL (7.0-11.0); MONO % 9.5 % (0.0-8.0); MONOCYTE # 0.9 TH/MM3 (0-0.9); NEUT % 81.1 % (16.0-70.0); PLATELET COUNT 166 TH/MM3 (150-450); RED BLOOD COUNT 3.42 MIL/MM3 (4.50-5.90); RED CELL DISTRIBUTION WIDTH 15.3 % (11.6-17.2); WHITE BLOOD COUNT 9.7 TH/MM3 (4.0-11.0)
[2017-05-26 05:07] LABS: ALBUMIN 2.4 GM/DL (3.4-5.0); AST (GOT) 28 U/L (15-37); BICARBONATE 27.6 MEQ/L (21.0-32.0); BLOOD UREA NITROGEN 60 MG/DL (7-18); CALCIUM 9.2 MG/DL (8.5-10.1); CHLORIDE 103 MEQ/L (98-107); CREATININE 8.32 MG/DL (0.60-1.30); GLOMERULAR FILTRATION RATE 6 ML/MIN (>89); GLUCOSE,RANDOM 82 MG/DL (74-106); MAGNESIUM 1.7 MG/DL (1.5-2.5); SODIUM (NA) 141 MEQ/L (136-145)
[2017-05-26] MEDS: HEPARIN SODIUM - SQ 10,000 UNITS/ML VIAL SQ SCH ×2 (05:11→18:19)
[2017-05-26] MEDS: CHLORHEXIDINE GLUCONATE 2 % 1 PACK (2 CLOTHS)(taper/protocol) TOPICAL SCH (05:12)
[2017-05-26] MEDS: hydrALAZINE HCL 10 MG TAB PO SCH (05:12)
[2017-05-26] MEDS: HYDROCORTISONE SOD SUCCINATE 100 MG VIAL IV PUSH SCH ×2 (05:12→14:53)
[2017-05-26 05:27] LABS: ALKALINE PHOSPHATASE 46 U/L (45-117); ALT (GPT) 21 U/L (12-78); PHOSPHORUS 4.2 MG/DL (2.5-4.9); TOTAL BILIRUBIN ADULT 0.4 MG/DL (0.2-1.0); TOTAL PROTEIN 6.4 GM/DL (6.4-8.2)
[2017-05-26] MEDS ORDERED: ALBUMIN 25% INJ 100 ML IV SCH (06:30)
[2017-05-26] MEDS ORDERED: NOREPINEPHRINE 4 MG/D5W 250 ML IV PRN (06:30)
--- NOTE | 2017-05-26 07:03 | RADRPT ---
EXAM DATE/TIME: 05/26/2017 06:26 [facility] COMPARISON: CHEST SINGLE AP, May 25, 2017, 3:36. INDICATIONS : Short of breath. Respiratory distress. MEDICAL HISTORY : Hypertension. Cardiovascular disease. Chronic obstructive pulmonary disease. SURGICAL HISTORY : Coronary artery stent. ENCOUNTER: Subsequent ACUITY: 4 - 6 days PAIN SCORE: 0/10 LOCATION: Bilateral chest FINDINGS: Stable left-sided internal jugular vein central line with the tip in the SVC. Heart size is moderatel y enlarged. Lungs are hypoinflated with stable appearance of left basilar atelectasis. CONCLUSION: Stable exam. Danielle Cabello MD on May 26, 2017 at 7:01 Board Certified Radiologist. This report was verified electronically.
[2017-05-26] MEDS: RESP: ACETYLCYSTEINE 10% 30 ML NEB NEB SCH ×4 (08:00→20:00)
[2017-05-26] MEDS: SODIUM CHLORIDE 0.9% FLUSH 10 ML FLUSH IV FLUSH SCH ×2 (09:00→20:53)
[2017-05-26] MEDS: SENNOSIDES SYRUP 8.8 MG/5 ML CUP PO SCH (09:00)
[2017-05-26] MEDS: BUDESONIDE-FORMOTEROL 160/4.5 MCG INHALER INH SCH ×2 (09:00→20:53)
[2017-05-26] MEDS: FUROSEMIDE 40 MG/4 ML VIAL IV PUSH SCH (09:00)
[2017-05-26] MEDS: DOCUSATE SODIUM 100 MG CAP PO SCH ×2 (09:00→20:52)
--- NOTE | 2017-05-26 09:22 | HHI.CCPN ---
Subjective Remarks/Hospital Course Patient is an 82-year-old male with a past medical history of hypertension, obstructive sleep apnea on CPAP, COPD, CVA, end-stage renal disease on peritoneal dialysis who was admitted under hospitalist service on 05/21/2017 for respiratory distress. He had a chest x-ray on arrival which showed complete opacification of the left hemithorax with left shift of the mediastinum. Subsequently, he had CT chest without contrast which showed collapse of the left lung that appears to be due to extensive debris within the left main stem bronchus extending peripherally. No obvious hilar mass seen. A pleural parenchymal atelectasis or scarring posteriorly in the superior segment of right lower lobe noted as well. The patient was seen by Dr. Hogue from pulmonary service and scheduled to undergo a bronchoscopy. He had an ABG early this morning on a nonrebreather mask which showed acute hypoxemic respiratory failure with a pH of 7.40, CO2 of 37, PaO2 59, saturation 87%. The patient was placed on BiPAP with 100% FIO2 and transferred to [facility] [place]. Critical care medicine was consulted for critical care management. When seen, the patient had a saturation of 90% on 100% FIO2. Due to worsening respiratory status, he was immediately intubated by myself and placed on full mechanical ventilation. Most of the history was obtained from reviewing the medical records. A repeat chest x-ray this morning prior to intubation showed no significant change with complete collapse of the left lung. 05/23 Patient remains intubated, sedated with Fentanyl drip. Required Levophed post intubation now off pressor. Afebrile. s/p bronch yesterday showed thick mucoid secretions/mucous plugs on left suctioned to clear CXR post bronch showed improved aeration on left. 05/24 Patient was extubated yesterday placed on partial non rebreather overnight. Awake and alert. Afebrile. 05/25: Patient remains on partial nonrebreather. Unable to wean remains hypoxic. Intermittently confused oriented to person and somewhat to place 05/26: Patient remains increasingly confused. Possible sepsis and metabolic encephalopathy cannot be ruled out. Check EEG. Broaden antibiotic with Zosyn, vancomycin. Will culture blood and peritoneal fluid. Use as needed Haldol for confusion/agitation. Patient was hypotensive in a.m. improved with IV albumin bolus Objective Vital Signs Date Time Temp Pulse Resp B/P (MAP) Pulse Ox O2 Delivery O2 Flow Rate FiO2 05/26/17 06:03 61 25 76/47 (57) 92 05/26/17 04:07 50 05/26/17 04:01 98.7 05/25/17 21:35 Partial Rebreather 15.00 Intake and Output 05/26/17 05/26/17 05/27/17 08:00 16:00 00:00 Intake Total 50 ml Output Total 0 ml 1661 ml Balance 50 ml -1661 ml Result Diagram: 05/26/17 0420 05/26/17 0420 Other Results Laboratory Tests Test 05/25/17 20:19 Blood Gas Puncture Site RT RADIAL Blood Gas Patient Temperature 98.6 Blood Gas HCO3 23 mmol/L (22-26) Blood Gas Base Excess -1.5 mmol/L (-2-2) Blood Gas Oxygen Saturation 94 % (90-100) Arterial Blood pH 7.37 (7.380-7.420) Arterial Blood Partial Pressure CO2 41 mmHg (38-42) Arterial Blood Partial Pressure O2 90 mmHg (61-120) Arterial Blood Oxygen Content 13.8 Vol % (12.0-20.0) Arterial Blood Carboxyhemoglobin 0.7 % (0-4) Arterial Blood Methemoglobin 1.1 % (0-2) Blood Gas Hemoglobin 10.4 G/DL (12.0-16.0) Oxygen Delivery Device PRB Blood Gas Liter Flow 15 L/M Imaging Last Impressions Head CT 05/22/17 0000 Signed Impressions: Service Date/Time: Monday, May 22, 2017 12:22 - CONCLUSION: Negative for acute process Kian Adkins MD FACR Chest X-Ray 05/22/17 0000 Signed Impressions: Service Date/Time: Monday, May 22, 2017 17:03 - CONCLUSION: 1. Left IJ central line in the SVC junction without pneumothorax. 2. Patchy airspace disease in the left mid to lower lung zones. Hunter Daniel MD Abdomen X-Ray 05/22/17 0000 Signed Impressions: Service Date/Time: Monday, May 22, 2017 10:27 - CONCLUSION: No evidence of obstruction. Nasogastric tube across the GE junction. No free air. Kian Adikns MD FACR Chest CT 05/21/17 0000 Signed Impressions: Service Date/Time: May 16:29 - CONCLUSION: 1. Complete collapse of the left lung appears to be due to extensive debris within the left mainstem bronchus extending peripherally. Bronchoscopy is recommended for further evaluation and possible treatment. 2. The esophagus appears to impinge on the posterior wall of the trachea and may partially obscure the lumen in the upper thorax. 3. No obvious hilar mass lesion although anatomic detail is limited due to the adjacent collapsed lung. This area can be reevaluated after clearing of the left mainstem bronchus and reexpansion of the left lung. 4. Pleural-parenchymal atelectasis or scarring posteriorly in the superior segment of the right lower lobe. Right lung is otherwise clear. 5. Atherosclerotic calcification of the coronary arteries. Calcification of the mitral valve annulus Gelacio Allen MD Objective Remarks GENERAL: Patient is 82 yo lying in bed on VM. Was on BiPAP at night SKIN: Warm and dry. HEAD: Normocephalic. EYES: No scleral icterus. No injection or drainage. NECK: Supple, trachea midline. No JVD or lymphadenopathy. CARDIOVASCULAR: Regular rate and rhythm without murmurs, gallops, or rubs. RESPIRATORY: Breath sounds equal bilaterally, but diminished at the bases. No accessory muscle use. Few coarse BS. Now on 50% VM GASTROINTESTINAL: Abdomen soft, non-tender, nondistended. MUSCULOSKELETAL: No cyanosis, or edema. Neuro: Intermittently drowsy but now waking up. Follows some commands. Oriented to person. He knows that he is in a hospital. Do not know the year. A/P Assessment and Plan Assessment: Acute hypoxemic respiratory failure extubated 05/23 Delirium/metabolic encephalopathy Probable sepsis Hypotension s/p opacification of left lung due to mucous plugs-improved post bronch ESRD on peritoneal dialysis. History of hypertension. CAD, s/p CALLIE to RCA in Feb COPD History of sleep apnea on CPAP at home History of cerebrovascular accident. Plan Neuro: Awake and alert avoid sedatives CT brain 05/22- no acute process Encephalopathy most likely metabolic, treat for sepsis, check EEG, MRI if not improving Protecting airway at this time Pulm: Continue with oxygen and maintain sats >90%. Currently on Bronchodilators ( DuoNeb, Mucomyst) Hydrocortisone 50mg Q12 NIPPV PRN for resp distress and nocturnally qhs ( on CPAP at home for MIRELA) s/p bronch 05/22 - thick mucoid secretions on left suctioned to clear. Follow up on BAL results CXR post bronch showed improved aeration of left lung. Pulm is following- Dr. Mykel López. Continues EzPAP add Acapella, aggressive pulmonary toilet CV: Monitor HR and BP and maintain MAP> 65 mmHg. Lactic acid 3.3 Echo in February showed EF of 55-60% with no regional wall motion abnormalities. Continue with aspirin, Plavix, Lipitor. : Monitor renal function. I's and O's and avoid nephrotoxins. Nephrology- Dr. Salcedo, on peritoneal dialysis. On Lasix 40mg daily IV GI: On Pepcid 10 mg IV q. 12 hours for GI prophylaxis. Speech eval, diet per speech ID: On cefepime and azithromycin. DC his cefepime start Zosyn for anaerobic coverage also, add vancomycin Send blood and peritoneal fluid cultures Monitor for signs of infections( fever and WBC). Follow up on BAL results-negative to date Endo: SSI with Accu-Chek for glycemic control. Heme: Monitor CBC. GI prophylaxis with Pepcid, DVT prophylaxis with SCDs/ heparin sub-Q. Lines: Left IJ CVP placed 05/22 CCT 35 MIN Patient is now critically ill with increasing confusion and delirium, he may be developing sepsis. Send peritoneal fluid for culture, send blood cultures. Check EEG. Hold Neurontin, hold citalopram. Continue Mick. Santiago Diaz MD May 26, 2017 09:22
[2017-05-26] MEDS ORDERED: Vancomycin Consult Pharmacy 1 EA OTHER SCH (09:30)
[2017-05-26] MEDS ORDERED: VANCOMYCIN INJ 1,250 MG in SODIUM CHLOR 0.9% 250 ML INJ 250 ML IV ONE ×2 (10:00→11:00)
[2017-05-26] MEDS: CALCIUM ACETATE 667 MG CAP NG SCH ×3 (10:29→18:20)
[2017-05-26] MEDS: CALCITRIOL 0.25 MCG CAP PO SCH (10:29)
[2017-05-26] MEDS: CLOPIDOGREL 75 MG TAB PO SCH (10:29)
[2017-05-26] MEDS: LACTOBACILLUS ACIDOPHILUS TAB PO SCH ×3 (10:29→18:20)
[2017-05-26] MEDS: ASPIRIN EC 81 MG TABEC PO SCH (10:30)
[2017-05-26] MEDS: guaiFENesin SOLUTION 200 MG/10 ML CUP PO SCH ×2 (10:30→20:59)
[2017-05-26] MEDS: PIPERACIL-TAZO 2.25 GM PREMIX 50 ML IV SCH ×2 (10:37→18:43)
[2017-05-26] MEDS: POTASSIUM CHLORIDE 20 MEQ CONTROLLED RELEASE TAB PO SCH (10:37)
[2017-05-26] MEDS: levETIRAcetam 500 MG TAB PO SCH (10:37)
--- NOTE | 2017-05-26 12:08 | HHI.NPPN ---
Subjective General Problems: Anemia Renal Failure: Chronic, End Stage Renal Disease Interval History Per the nurse he is increasing lethargic, unresponsive. On NRB. NG tube placed as he is unable to swallow. Borderline hypotensive. He has become anuric. (Jania Gallagher) Review of Systems General Constitutional: Fatigue General Remarks unable to obtain (Jania Gallagher) Objective Data Data 05/26/17 05/27/17 19:00 07:00 Output Total 1661 ml Balance -1661 ml Peritoneal Fluid 1661 ml Vital Signs Date Time Temp Pulse Resp B/P (MAP) Pulse Ox O2 Delivery O2 Flow Rate FiO2 05/26/17 10:00 70 05/26/17 09:30 95 Venturi Mask 6.00 50 05/26/17 08:00 96 Partial Non-Rebreather 05/26/17 08:00 66 05/26/17 08:00 99.0 66 22 108/57 (74) 96 05/26/17 06:03 61 25 76/47 (57) 92 05/26/17 06:00 63 05/26/17 05:00 65 05/26/17 04:07 93 50 05/26/17 04:01 98.7 64 24 93/50 (64) 88 05/26/17 04:00 64 05/26/17 03:00 61 05/26/17 02:00 64 05/26/17 01:11 97 50 05/26/17 00:02 68 05/26/17 00:02 98.4 68 21 93/72 (79) 93 05/25/17 23:17 92 60 05/25/17 23:05 56 05/25/17 23:05 56 20 115/54 (74) 100 05/25/17 22:00 54 05/25/17 22:00 54 19 101/54 (70) 94 05/25/17 21:35 93 Partial Rebreather 15.00 05/25/17 21:01 51 16 104/56 (72) 96 05/25/17 21:01 51 05/25/17 20:01 98.4 59 18 103/52 (69) 89 05/25/17 20:01 59 05/25/17 19:00 90 Partial Non-Rebreather 05/25/17 19:00 Partial Non-Rebreather 05/25/17 18:00 51 05/25/17 16:00 99.1 49 20 115/63 (80) 92 05/25/17 16:00 49 05/25/17 14:00 48 (Jania Gallagher) -: 05/26/17 0420 05/26/17 0420 Microbiology 05/26/17 Aerobic Blood Culture, Received Pending 05/26/17 Anaerobic Blood Culture, Received Pending 05/26/17 Aerobic Blood Culture, Received Pending 05/26/17 Anaerobic Blood Culture, Received Pending 05/26/17 Gram Stain - Final, Resulted 05/26/17 Body Fluid Culture, Resulted Pending Imaging Last 72 hours Impressions Chest X-Ray 05/26/17 0000 Signed Impressions: Service Date/Time: Friday, May 26, 2017 06:26 - CONCLUSION: Stable exam. Danielle Cabello MD Chest X-Ray 05/25/17 0600 Signed Impressions: Service Date/Time: Thursday, May 25, 2017 03:36 - CONCLUSION: Considerably decreased consolidation and effusion at the left lung base. Joe Hdz MD Chest X-Ray 05/24/17 0000 Signed Impressions: Service Date/Time: Wednesday, May 24, 2017 06:49 - CONCLUSION: Increasing parenchymal changes left base. Kian Adkins MD FACR Tubes & Lines: Tenckhoff Catheter Tubes & Lines Comment NG tube TLC right IJ (Jania Gallagher) Physical Exam General Appearance: No Acute Distress, Malnourished Appearance Remarks minimally responsive (Jania Gallagher) Eyes Eye Exam: Pupils Equal (Jania Gallagher) Throat Throat Exam: Oral Mucosa [place] & Moist (Jania Gallagher) Neck Neck Exam: Neck Supple (Jania Gallagher) Pulmonary Resp Exam: No Distress, Crackles, Rhonchi, Decreased Bases Resp Remarks shallow, on NRB (Jania Gallagher) Cardiology CV Exam: Regular, Normal Sinus Rhythm (Jania Gallagher) Gastrointestinal/Abdomen GI Exam: Soft, Non-Tender, Bowel Sounds Present (Jania Gallagher) Genitourinary Remarks anuric, bladder scan showing 10 ml (Jania Gallagher) Musculoskeletal MS Exam: Joints Intact, Atrophy, Unable to Ambulate (Jania Gallagher) Integumentary Skin Exam: Warm, Dry, Intact (Jania Gallagher) Extremeties Extremities Exam: No Edema, Pedal Pulses Palpable (Jania Gallagher) Neurologic Neuro Exam: Obtunded, Unresponsive (Jania Gallagher) Assessment/Plan Discussed Condition With: Patient Assessment Summary: Anemia of CKD, Malnutrition, End Stage Renal Disease Problem List: (1) End stage renal disease ICD Codes: N18.6 - End stage renal disease Status: Chronic Plan: We will continue PD for now, may switch to HD if it is not working well. Typical regimen is 9 hrs, 4 cycles, 2500 ml; no last fill.We are using 2.5% dextrose PD solution. Excellent UF. Last admission he had issues with catheter and fluid retention last admission Hold lasix, has been hypotensive and has not been making urine. Avoid IVF administration Replace potassium as needed. Monitor phosphorus level periodically. (2) Bronchial obstruction ICD Codes: J98.09 - Other diseases of bronchus, not elsewhere classified Status: Acute Plan: Patient appears to have redeveloped atelectasis of the left lung. Off BIPAP, currently on NRB (3) Hypoxia ICD Codes: R09.02 - Hypoxemia Status: Resolved Plan: See above. (4) Pneumonia ICD Codes: J18.9 - Pneumonia Status: Resolved Plan: Blood cultures have been negative so far On Vancomycin, Zithromax, an Zosyn Off cefepime lactic acid is elevated (5) Hypertension ICD Codes: I10 - Essential (primary) hypertension Status: Chronic Plan: Antihypertensives on hold. Monitor BP, (6) Anemia ICD Codes: D64.9 - Anemia, unspecified Status: Chronic Plan: Given Epogen on 05/23/17 Plan His prognosis is poor. Seems to be declining. Consider palliative evaluation to define goals of care. (Jania Gallagher) Problem List: (1) End stage renal disease ICD Codes: N18.6 - End stage renal disease Status: Chronic Plan: We will continue PD for now, may switch to HD if it is not working well. Typical regimen is 9 hrs, 4 cycles, 2500 ml; no last fill.We are using 2.5% dextrose PD solution. Excellent UF. Last admission he had issues with catheter and fluid retention last admission Hold lasix, has been hypotensive and has not been making urine. Avoid IVF administration Replace potassium as needed. Monitor phosphorus level periodically. (2) Bronchial obstruction ICD Codes: J98.09 - Other diseases of bronchus, not elsewhere classified Status: Acute Plan: Patient appears to have redeveloped atelectasis of the left lung. Off BIPAP, currently on NRB (3) Hypoxia ICD Codes: R09.02 - Hypoxemia Status: Resolved Plan: See above. (4) Pneumonia ICD Codes: J18.9 - Pneumonia Status: Resolved Plan: Blood cultures have been negative so far On Vancomycin, Zithromax, an Zosyn Off cefepime lactic acid is elevated (5) Hypertension ICD Codes: I10 - Essential (primary) hypertension Status: Chronic Plan: Antihypertensives on hold. Monitor BP, (6) Anemia ICD Codes: D64.9 - Anemia, unspecified Status: Chronic Plan: Given Epogen on 05/23/17 Plan patient was seen and examined. He is doing poorly. Patient on Vancomycin. He is declining. (Gabriel Salcedo MD) Jania Gallagher May 26, 2017 12:08 Gabriel Salcedo MD May 27, 2017 09:08
[2017-05-26] MEDS: AZITHROMYCIN 250 MG TAB PO SCH (18:19)
--- NOTE | 2017-05-26 19:56 | RADRPT ---
EXAM DATE/TIME: 05/26/2017 19:40 [facility] COMPARISON: CHEST SINGLE AP, May 26, 2017, 6:26. INDICATIONS : Short of breath and evaluate for left effusion MEDICAL HISTORY : Hypertension. Cardiovascular disease. Chronic obstructive pulmonary disease. SURGICAL HISTORY : Coronary artery stent. ENCOUNTER: Subsequent ACUITY: 1 week PAIN SCORE: 0/10 LOCATION: Bilateral chest FINDINGS: A single view of the chest demonstrates a left basilar density and probable small pleural effusion. Lines. Left jugular central line, unchanged. Nasogastric tube tip likely in stomach. Osseous structu res are intact. CONCLUSION: Left basilar density and probable small effusion. Marcus Shultz MD on May 26, 2017 at 19:53 Board Certified Radiologist. This report was verified electronically.
[2017-05-26] MEDS: ATORVASTATIN 80 MG TAB PO SCH (20:52)
[2017-05-26] MEDS: levETIRAcetam 250 MG TAB PO SCH (20:58)
[2017-05-27] VITALS (19 sets, daily range): BP systolic 92–161; BP diastolic 55–70; PULSE 49–60; RESP 5–26; TEMP 97.9–99.6; O2SAT 92–100
[2017-05-27] MEDS: RESP: ALBUTEROL 2.5 MG/IPRATROPIUM 0.5 MG NEB (SCH) NEB ×6 (00:17→20:10)
[2017-05-27] MEDS: PIPERACIL-TAZO 2.25 GM PREMIX 50 ML IV SCH ×3 (01:38→17:16)
[2017-05-27] MEDS: INSULIN NovoLIN REGULAR SUPPLEMENTAL SCALE SQ SCH ×6 (04:00→20:00)
[2017-05-27] MEDS: CHLORHEXIDINE GLUCONATE 2 % 1 PACK (2 CLOTHS)(taper/protocol) TOPICAL SCH (04:00)
[2017-05-27] MEDS: HEPARIN SODIUM - SQ 10,000 UNITS/ML VIAL SQ SCH ×2 (04:37→16:15)
[2017-05-27] MEDS: HYDROCORTISONE SOD SUCCINATE 100 MG VIAL IV PUSH SCH ×2 (04:38→16:15)
[2017-05-27 05:43] LABS: AUTOMATED NEUTROPHIL # 8.7 TH/MM3 (1.8-7.7); BASOPHIL % 0.3 % (0.0-2.0); EOSINOPHIL # 0.1 TH/MM3 (0-0.4); EOSINOPHIL % 1.1 % (0.0-4.0); HEMATOCRIT 30.9 % (39.0-51.0); HEMOGLOBIN 10.4 GM/DL (13.0-17.0); LYMPH % 9.2 % (9.0-44.0); MEAN CELL VOLUME 92.3 FL (80.0-100.0); MEAN CORPUSCULAR HEMOGLOBIN 31.2 PG (27.0-34.0); MEAN CORPUSCULAR HGB CONC 33.8 % (32.0-36.0); MEAN PLATELET VOLUME 8.3 FL (7.0-11.0); NEUT % 80.4 % (16.0-70.0); PLATELET COUNT 189 TH/MM3 (150-450); RED BLOOD COUNT 3.35 MIL/MM3 (4.50-5.90); RED CELL DISTRIBUTION WIDTH 15.3 % (11.6-17.2); WHITE BLOOD COUNT 10.8 TH/MM3 (4.0-11.0)
[2017-05-27 06:07] LABS: ALBUMIN 2.7 GM/DL (3.4-5.0); ALT (GPT) 18 U/L (12-78); AST (GOT) 26 U/L (15-37); BICARBONATE 26.2 MEQ/L (21.0-32.0); BLOOD UREA NITROGEN 59 MG/DL (7-18); CALCIUM 9.7 MG/DL (8.5-10.1); CHLORIDE 104 MEQ/L (98-107); CREATININE 8.76 MG/DL (0.60-1.30); GLOMERULAR FILTRATION RATE 6 ML/MIN (>89); GLUCOSE,RANDOM 97 MG/DL (74-106); SODIUM (NA) 141 MEQ/L (136-145)
[2017-05-27 06:10] LABS: ALKALINE PHOSPHATASE 48 U/L (45-117); TOTAL BILIRUBIN ADULT 0.5 MG/DL (0.2-1.0); TOTAL PROTEIN 6.5 GM/DL (6.4-8.2)
[2017-05-27] MEDS: RESP: ACETYLCYSTEINE 10% 30 ML NEB NEB SCH (08:00)
[2017-05-27] MEDS: LACTOBACILLUS ACIDOPHILUS TAB PO SCH ×3 (08:10→17:16)
[2017-05-27] MEDS: CALCIUM ACETATE 667 MG CAP NG SCH ×3 (08:10→17:16)
[2017-05-27] MEDS: POTASSIUM CHLORIDE 20 MEQ CONTROLLED RELEASE TAB PO SCH (08:10)
[2017-05-27] MEDS: ASPIRIN EC 81 MG TABEC PO SCH (08:11)
[2017-05-27] MEDS: CALCITRIOL 0.25 MCG CAP PO SCH (08:11)
[2017-05-27] MEDS: CLOPIDOGREL 75 MG TAB PO SCH (08:11)
[2017-05-27] MEDS: SODIUM CHLORIDE 0.9% FLUSH 10 ML FLUSH IV FLUSH SCH ×2 (08:11→20:20)
[2017-05-27] MEDS: DOCUSATE SODIUM 100 MG CAP PO SCH ×2 (08:11→20:20)
[2017-05-27] MEDS: BUDESONIDE-FORMOTEROL 160/4.5 MCG INHALER INH SCH ×2 (08:11→20:21)
[2017-05-27] MEDS: levETIRAcetam 500 MG TAB PO SCH (08:11)
[2017-05-27] MEDS: SENNOSIDES SYRUP 8.8 MG/5 ML CUP PO SCH (08:12)
[2017-05-27] MEDS: guaiFENesin SOLUTION 200 MG/10 ML CUP PO SCH ×2 (08:12→20:19)
--- NOTE | 2017-05-27 08:24 | MG ---
cc: Franko Montelongo MD REQUESTING PHYSICIAN: Dr. Diaz INDICATIONS: An EEG was obtained on this 82-year-old patient being evaluated for hypertension, hypoxia, confusion. DESCRIPTION: The patient is described as awake during the study. This EEG is showing fairly prominent theta with delta rhythms. There is a lack of alpha activity. There are bilateral sharp triphasic waves. The background is grossly symmetrical and poorly reactive. There is some probable beta rhythms bilaterally. Photic stimulation disclosed no significant change. INTERPRETATION: Abnormal electroencephalogram because of generalized slowing with some triphasic sharp waves. The findings suggest a moderately severe, diffuse disturbance of cerebral function, probably metabolic in nature. No epileptiform features present. Franko Montelongo MD [facility]/ , 08:49 PM , 09:19 PM
--- NOTE | 2017-05-27 08:33 | RADRPT ---
EXAM DATE/TIME: 05/27/2017 08:04 [facility] COMPARISON: CHEST SINGLE AP, May 26, 2017, 19:40. INDICATIONS : Resoiratory disease. MEDICAL HISTORY : Hypertension. Chronic obstructive pulmonary disease. Cardiovascular disease. SURGICAL HISTORY : Coronary artery stent. ENCOUNTER: Subsequent ACUITY: 1 week PAIN SCORE: Non-responsive. LOCATION: Bilateral chest FINDINGS: Stable NGT and left IJ central line. Redemonstration of bilateral lower lung zone airspace disease, m ore prominent on the left with likely small left pleural effusion. Cardiomegaly small contours are st able. Remainder of exam is unchanged. CONCLUSION: 1. No significant 24-hour interval change. 2. Stable bilateral lower lung zone airspace disease, left greater than right, with probable small le ft pleural effusion. Hunter Daniel MD on May 27, 2017 at 8:30 Board Certified Radiologist. This report was verified electronically.
[2017-05-27] MEDS ORDERED: ETOMIDATE 40 MG/20 ML VIAL ONE (08:44)
[2017-05-27] MEDS ORDERED: MIDAZOLAM HCL 5 MG/ML VIAL (1 ML) ONE (08:44)
[2017-05-27] MEDS ORDERED: ROCURONIUM INJ 50 MG/5 ML VIAL ONE (08:44)
--- NOTE | 2017-05-27 09:13 | PD.PROCEDR ---
Procedure Note Procedure Emergency intubation for altered mentation and hypoxemic respiratory failure INTUBATION: The patient was put in optimal position for the procedure. Rapid sequence intubation was initiated by me using 20 milligrams of etomidate IV and 5 milligrams of Versed IV. The patient was intubated with a 8 cuffed endotracheal tube. DL with Mac 4 blade, Grade 3 view on direct laryngoscopy. Tube placement was confirmed by visualization of the tube and balloon passing through the cords, capnometry and subsequent chest x-ray. Breath sounds were equal and well aerated bilaterally postintubation. No breath sounds over stomach. Patient tolerated procedure well. Santiago Diaz MD May 27, 2017 09:13
[2017-05-27] MEDS ORDERED: PROPOFOL 500 MG/50 ML INJ 50 ML ONE (09:15)
--- NOTE | 2017-05-27 09:24 | HHI.CCPN ---
Subjective Remarks/Hospital Course Patient is an 82-year-old male with a past medical history of hypertension, obstructive sleep apnea on CPAP, COPD, CVA, end-stage renal disease on peritoneal dialysis who was admitted under hospitalist service on 05/21/2017 for respiratory distress. He had a chest x-ray on arrival which showed complete opacification of the left hemithorax with left shift of the mediastinum. Subsequently, he had CT chest without contrast which showed collapse of the left lung that appears to be due to extensive debris within the left main stem bronchus extending peripherally. No obvious hilar mass seen. A pleural parenchymal atelectasis or scarring posteriorly in the superior segment of right lower lobe noted as well. The patient was seen by Dr. Hogue from pulmonary service and scheduled to undergo a bronchoscopy. He had an ABG early this morning on a nonrebreather mask which showed acute hypoxemic respiratory failure with a pH of 7.40, CO2 of 37, PaO2 59, saturation 87%. The patient was placed on BiPAP with 100% FIO2 and transferred to [facility]. Critical care medicine was consulted for critical care management. When seen, the patient had a saturation of 90% on 100% FIO2. Due to worsening respiratory status, he was immediately intubated by myself and placed on full mechanical ventilation. Most of the history was obtained from reviewing the medical records. A repeat chest x-ray this morning prior to intubation showed no significant change with complete collapse of the left lung. 05/23 Patient remains intubated, sedated with Fentanyl drip. Required Levophed post intubation now off pressor. Afebrile. s/p bronch yesterday showed thick mucoid secretions/mucous plugs on left suctioned to clear CXR post bronch showed improved aeration on left. 05/24 Patient was extubated yesterday placed on partial non rebreather overnight. Awake and alert. Afebrile. 05/25: Patient remains on partial nonrebreather. Unable to wean remains hypoxic. Intermittently confused oriented to person and somewhat to place 05/26: Patient remains increasingly confused. Possible sepsis and metabolic encephalopathy cannot be ruled out. Check EEG. Broaden antibiotic with Zosyn, vancomycin. Will culture blood and peritoneal fluid. Use as needed Haldol for confusion/agitation. Patient was hypotensive in a.m. improved with IV albumin bolus 05/27: Patient profoundly hypoxemic placed on BiPAP, FiO2 was increased to 90% initially now weaned to 60%. Remains altered hard to arouse. Questionable airway protection, not a candidate for BiPAP. I discussed with his Jolynn Regalado who requested everything to be done. Patient was intubated and placed on mechanical ventilation. Will check MRI of brain, neurology consult as appropriate. His airway is anterior, Grade 2-3 view on DL Objective Vital Signs Date Time Temp Pulse Resp B/P (MAP) Pulse Ox O2 Delivery O2 Flow Rate FiO2 05/27/17 06:00 54 05/27/17 05:05 92 60 05/27/17 04:00 99.1 22 161/70 (100) 05/26/17 21:29 BiPAP 05/26/17 09:30 6.00 Intake and Output 05/27/17 05/27/17 05/28/17 08:00 16:00 00:00 Output Total 523 ml Balance -523 ml Result Diagram: 05/27/17 0447 05/27/17 0447 Other Results Laboratory Tests Test 05/26/17 18:00 Blood Gas Puncture Site RT RADIAL Blood Gas Patient Temperature 98.6 Blood Gas HCO3 24 mmol/L (22-26) Blood Gas Base Excess -0.2 mmol/L (-2-2) Blood Gas Oxygen Saturation 96 % (90-100) Arterial Blood pH 7.41 (7.380-7.420) Arterial Blood Partial Pressure CO2 39 mmHg (38-42) Arterial Blood Partial Pressure O2 106 mmHg (61-120) Arterial Blood Oxygen Content 13.8 Vol % (12.0-20.0) Arterial Blood Carboxyhemoglobin 0.8 % (0-4) Arterial Blood Methemoglobin 1.1 % (0-2) Blood Gas Hemoglobin 10.1 G/DL (12.0-16.0) Oxygen Delivery Device BiPAP Blood Gas Ventilator Setting [id number] Blood Gas Inspired Oxygen 90 % Imaging Last Impressions Head CT 05/22/17 0000 Signed Impressions: Service Date/Time: Monday, May 22, 2017 12:22 - CONCLUSION: Negative for acute process Kian Adkins MD FACR Chest X-Ray 05/22/17 0000 Signed Impressions: Service Date/Time: Monday, May 22, 2017 17:03 - CONCLUSION: 1. Left IJ central line in the SVC junction without pneumothorax. 2. Patchy airspace disease in the left mid to lower lung zones. Hunter Daniel MD Abdomen X-Ray 05/22/17 0000 Signed Impressions: Service Date/Time: Monday, May 22, 2017 10:27 - CONCLUSION: No evidence of obstruction. Nasogastric tube across the GE junction. No free air. Kian Adkins MD FACR Chest CT 05/21/17 0000 Signed Impressions: Service Date/Time: May 16:29 - CONCLUSION: 1. Complete collapse of the left lung appears to be due to extensive debris within the left mainstem bronchus extending peripherally. Bronchoscopy is recommended for further evaluation and possible treatment. 2. The esophagus appears to impinge on the posterior wall of the trachea and may partially obscure the lumen in the upper thorax. 3. No obvious hilar mass lesion although anatomic detail is limited due to the adjacent collapsed lung. This area can be reevaluated after clearing of the left mainstem bronchus and reexpansion of the left lung. 4. Pleural-parenchymal atelectasis or scarring posteriorly in the superior segment of the right lower lobe. Right lung is otherwise clear. 5. Atherosclerotic calcification of the coronary arteries. Calcification of the mitral valve annulus Gelacio Allen MD Objective Remarks GENERAL: Patient is 82 yo lying in bed on VM. On BiPAP 15/5 60% Fio2 SKIN: Warm and dry. HEAD: Normocephalic. EYES: No scleral icterus. No injection or drainage. NECK: Supple, trachea midline. No JVD or lymphadenopathy. CARDIOVASCULAR: Regular rate and rhythm without murmurs, gallops, or rubs. RESPIRATORY: Breath sounds equal bilaterally, but diminished at the bases. Tachypneic using some accessory muscle use. GASTROINTESTINAL: Abdomen soft, non-tender, nondistended. MUSCULOSKELETAL: No cyanosis, or edema. NEURO: Motor grossly somnolent, unable to follow commands. Airway protection is questionable. Moving extremities A/P Assessment and Plan Assessment: Acute hypoxemic respiratory failure extubated 05/23, re intubated 05/27/17 Delirium/metabolic encephalopathy Probable sepsis s/p opacification of left lung due to mucous plugs-improved post bronch ESRD on peritoneal dialysis. History of hypertension. CAD, s/p CALLIE to RCA in Feb COPD History of sleep apnea on CPAP at home History of cerebrovascular accident. Plan: Neuro: Increasing confusion and encephalopathy unclear etiology. Most likely metabolic Check MRI of the brain, EEG pending CT brain 05/22- no acute process Pulm: Increasing oxygen requirement placed on BiPAP overnight FiO2 at 60% Not protecting airway consistently, intubated and placed on mechanical ventilation Anterior airway with DL Grade 3 view Bronchodilators ( DuoNeb). Hydrocortisone 50mg Q12. Add inhaled budesonide s/p bronch 05/22 - thick mucoid secretions on left suctioned to clear. Follow up on BAL results CXR post bronch showed improved aeration of left lung. Pulm is following- Dr. Hogue Hold Symbicort Spiriva while intubated CV: Monitor HR and BP and maintain MAP> 65 mmHg. Echo in February showed EF of 55-60% with no regional wall motion abnormalities. Continue with aspirin, Plavix, Lipitor. : Monitor renal function. I's and O's and avoid nephrotoxins. Nephrology- Dr. Salcedo, on peritoneal dialysis. May need to change to HD On Lasix 40mg daily IV, placed on hol GI: On Pepcid 10 mg IV q. 12 hours for GI prophylaxis. Speech eval, diet per speech ID: Continue Zosyn and vancomycin F/u blood and peritoneal fluid cultures. Send sputum culture after intubation. CT chest to evaluate for infiltrate, aspiration Monitor for signs of infections( fever and WBC). Follow up on BAL results-negative to date Endo: SSI with Accu-Chek for glycemic control. Heme: Monitor CBC. GI prophylaxis with Pepcid, DVT prophylaxis with SCDs/ heparin sub-Q. Lines: Left IJ CVP placed 05/22 CCT 45 MIN excluding procedures Patient is now critically ill with increasing confusion and delirium, now severely hypoxemic. Intubated and placed on mechanical ventilation. EEG pending MRI ordered of the brain. Discussed with nephrology Dr. Salcedo. Prior to intubation I called and discussed with Mrs. regalado. She requested full CODE STATUS with continued aggressive care. Palliative care consulted to address goals of care-patient overall declining over the last several months. Also explained to me that patient never had documented sz, but due to stroke in March and question of Alfonzo's palsy patient was placed on Santiago Santiago MD May 27, 2017 09:24
--- NOTE | 2017-05-27 11:16 | HHI.NPPN ---
Subjective General Problems: Anemia Renal Failure: Chronic, End Stage Renal Disease Interval History He was reintubated, is sedated on vent. 60% FiO2. Discussed declining health with his . PD continues, UF lower compared to previous evening. (Jania Gallagher) Review of Systems General General Remarks unable to obtain (Jania Gallagher) Objective Data Data 05/27/17 05/28/17 19:00 07:00 Output Total 523 ml Balance -523 ml Peritoneal Fluid 523 ml Vital Signs Date Time Temp Pulse Resp B/P (MAP) Pulse Ox O2 Delivery O2 Flow Rate FiO2 05/27/17 10:00 60 05/27/17 09:15 96 60 05/27/17 08:20 99 50 05/27/17 08:00 49 05/27/17 08:00 98.6 49 5 138/65 (89) 98 05/27/17 07:00 97 Bi-Pap 90 05/27/17 07:00 Bi-Pap 94 05/27/17 06:00 54 05/27/17 05:05 92 60 05/27/17 04:00 99.1 59 22 161/70 (100) 100 05/27/17 04:00 59 05/27/17 02:00 60 05/27/17 00:17 96 60 05/27/17 00:00 99.6 59 26 124/58 (80) 98 05/27/17 00:00 59 05/26/17 22:00 60 05/26/17 21:29 99 BiPAP 70 05/26/17 21:26 100 80 05/26/17 20:00 67 05/26/17 20:00 99.0 62 24 119/58 (78) 100 05/26/17 19:31 70 25 114/61 (78) 98 05/26/17 19:30 61 25 100 05/26/17 19:00 65 27 130/60 (83) 98 05/26/17 19:00 Bi-Pap 90 05/26/17 18:30 66 27 145/69 (94) 99 05/26/17 18:00 63 05/26/17 18:00 63 24 122/60 (80) 98 05/26/17 17:45 97 90 05/26/17 17:30 99 Bi-Pap 80 05/26/17 17:30 66 21 129/89 (102) 91 18 17:00 72 26 144/68 (93) 90 18 16:30 66 20 138/64 (88) 92 05/26/17 16:00 63 18 16:00 98.4 63 18 127/98 (108) 100 05/26/17 16:00 98.6 05/26/17 14:00 59 05/26/17 12:00 57 05/26/17 12:00 98.8 57 18 100/51 (67) 100 (Jania Gallagher) -: 05/27/17 0447 05/27/17 0447 Imaging Last 72 hours Impressions Chest X-Ray 05/27/17 0000 Signed Impressions: Service Date/Time: Saturday, May 27, 2017 08:04 - CONCLUSION: 1. No significant 24-hour interval change. 2. Stable bilateral lower lung zone airspace disease, left greater than right, with probable small left pleural effusion. Hunter Daniel MD Chest X-Ray 05/26/17 0000 Signed Impressions: Service Date/Time: Friday, May 26, 2017 19:40 - CONCLUSION: Left basilar density and probable small effusion. Marcus Shultz MD Chest X-Ray 05/26/17 0000 Signed Impressions: Service Date/Time: Friday, May 26, 2017 06:26 - CONCLUSION: Stable exam. Danielle Cabello MD Chest X-Ray 05/25/17 0600 Signed Impressions: Service Date/Time: Thursday, May 25, 2017 03:36 - CONCLUSION: Considerably decreased consolidation and effusion at the left lung base. Joe Hdz MD Tubes & Lines: Tenckhoff Catheter Tubes & Lines Comment NG tube TLC right IJ Drip Comment Propofol (Jania Gallagher) Physical Exam General Appearance: No Acute Distress, Malnourished Appearance Remarks chronically ill, unresponsive on the ventilator (Jania Gallagher) Eyes Eye Exam: Pupils Equal (Jaina Gallagher) Throat Throat Exam: Oral Mucosa [place] & Moist (Jania Gallagher) Neck Neck Exam: Neck Supple (Jania Gallagher) Pulmonary Resp Exam: Crackles, Rhonchi, Decreased Bases Resp Remarks vented lung sounds (Jania Gallagher) Cardiology CV Exam: Regular, Normal Sinus Rhythm (Jania Gallagher) Gastrointestinal/Abdomen GI Exam: Soft, Non-Tender, Bowel Sounds Present (Jania Gallagher) Genitourinary Remarks he has become oliguric (Jania Gallagher) Musculoskeletal MS Exam: Joints Intact, Atrophy, Unable to Ambulate (Jania Gallagher) Integumentary Skin Exam: Warm, Dry, Intact Skin Remarks multiple abrasions/scars to lower extremities (Jania Gallagher) Extremeties Extremities Exam: No Edema, Pedal Pulses Palpable (Jania Gallagher) Neurologic Neuro Exam: Unresponsive, Sedated (Jania Gallagher) Assessment/Plan Discussed Condition With: Spouse Assessment Summary: Anemia of CKD, Malnutrition, Hypotension, End Stage Renal Disease Problem List: (1) End stage renal disease ICD Codes: N18.6 - End stage renal disease Status: Chronic Plan: We will continue PD for now Currently on 9 hr treatment time that includes 4 cycles of 2500 ml with no last fill. We are using 2.5% dextrose PD solution. Variable UF. Last admission he had issues with catheter and fluid retention last admission, had catheter manipulated twice. Lasix is being held. Avoid IVF administration Replace potassium as needed. Monitor phosphorus level periodically. consider switching to HD if PD is not working well. (2) Bronchial obstruction ICD Codes: J98.09 - Other diseases of bronchus, not elsewhere classified Status: Acute Plan: Patient appears to have redeveloped atelectasis of the left lung. s/p reintubation (3) Hypoxia ICD Codes: R09.02 - Hypoxemia Status: Resolved Plan: See above. (4) Pneumonia ICD Codes: J18.9 - Pneumonia Status: Resolved Plan: Blood cultures have been negative so far On Vancomycin, Zithromax, an Zosyn Off cefepime lactic acid is elevated (5) Hypertension ICD Codes: I10 - Essential (primary) hypertension Status: Chronic Plan: Antihypertensives on hold. Monitor BP,use pressors if needed for BP support (6) Anemia ICD Codes: D64.9 - Anemia, unspecified Status: Chronic Plan: Given Epogen on 05/23/17 Plan D/w , the patient is doing poorly. Has been hospitalized most of the past 6 months. Consider palliative care evaluation and/or converting to comfort measures. She is in agreement, however it is very important that her children are present should they decide to withdrawal. It will be at least a few days before that decision is made. One son is in [place]. Daughter in [place]. (Jania Gallagher) Plan patient was seen and examined. Agree with above assessment and plan. I discussed the clinical situation and declining health with patient's . Also discussed with Dr. Diaz. (Gabriel Salcedo MD) Jania Gallagher May 27, 2017 11:16 Gabriel Salcedo MD May 27, 2017 21:20
--- NOTE | 2017-05-27 11:26 | PD.WCN.NOT ---
Wound Consult Description: Consult for Wound Management of lower extremities per Telephone order HAMIDA/ Dr. Diaz. Communicated with: ASHA Rosas Patient family member at bedside Recommendation: Leave lower extremities open to air. Float heels off mattress surface at all times. Additional Information: Patient seen @ 1007 on [facility] for wound evaluation of bilateral lower extremities. Entire bilateral lower extremities were visualized. There were no open areas noted. Diffuse multiple scabs were noted without drainage. Heels were floated off mattress surface. Marian Finch [facility] May 27, 2017 11:26
--- NOTE | 2017-05-27 11:43 | PD.CONS ---
Consult Service Palliative Care . Consult Requested By Dr. Diaz . Primary Care Physician Lisa Yousif MD . Reason for Consultation a. To assist with evaluation and management of symptoms including: Encephalopathy, dyspnea, debility b. To assist medical decision maker(s) with: better understanding of current medical conditions; weighing benefits/burdens of medical treatment options; making medical treatment decisions. . HPI History of Present Illness Mr. Mcgovern is an 82-year-old male with a known history of COPD, NSTEMI, hyperlipidemia, obstructive sleep apnea, BPH, hypertension, ESRD (on PD) and recent CVA who is currently residing at a rehabilitation center in [facility] post recent CVA with residual right-sided weakness. He presented to [facility] ED via EMS on 05/21/17 for evaluation of dyspnea after having a episode of hypoxemia during physical therapy earlier in the day. Upon EMS arrival, the patient's oxygen saturation was in the 90s on 3L, blood pressure was low with systolics pressure in the 80s. Patient was asymptomatic upon arrival to the ED. He denied chest pain, shortness of breath, nausea, vomiting, abdominal pain or generalized weakness. Of note, the patient has had several hospitalizations within the past 12 months. His states the patient was hospitalized with pneumonia in February. He had a stroke in March 2017 while on a cruise which was managed at the [facility]. He was transferred to [facility] for rehabilitation and was later discharged to a nursing facility on 05/05/2017. The patient's states the patient was recently diagnosed with pneumonia after an outpatient chest x-ray, however he was not improving despite treatment with antibiotics and was sent to the ED for evaluation. Diagnostic findings while in the ED: * Vital signs: Pulse 54, respirations 16, BP 113/59, oxygen saturation 93% on 3 L via nasal cannula and tympanic temperature 97.2 * WBC: 8.1, hemoglobin 10.4, hematocrit 31.0, platelets 268, neutrophils 59.5% * Sodium: 142, potassium 3.5, chloride 102, carbon dioxide 32.1, glucose 95, calcium 9.4, magnesium 1.9 * BUN: 62, creatinine 7.98, GFR 7 * Total bilirubin: 0.3, AST 18, ALT 16, alkaline phosphatase 48 * Total protein: 6.6, albumin 2.5 * Chest x-ray showed complete opacification of the left hemithorax with left shift of the mediastinum. This indicates significant volume loss with likely left lung collapse. There may be a central obstructing process. * CT chest revealed complete collapse of the left lung appears to be due to extensive debris within the left mainstem bronchus extending peripherally. Bronchoscopy is recommended for further evaluation and possible treatment. The esophagus appears to impinge on the posterior wall of the trachea and may partially obscure the lumen of the upper thorax. No obvious hilar mass lesion although anatomic detail is limited due to the adjacent collapsed lung. This area can be reevaluated after clearing the left mainstem bronchus and reexpansion of the left lung. Pleural parenchymal atelectasis or scarring posteriorly in the superior segment of the right lower lobe. Right lung is otherwise clear. Atherosclerotic calcifications of the coronary arteries; calcification of the mitral valve annulus. The patient was administered 500 mL of normal saline bolus for systolic in the 80s and diastolic in the 50s. Labs were relatively unremarkable except for elevated creatinine and BUN secondary to chronic kidney disease and peritoneal dialysis. CT of the thorax reveals complete collapse of the left lung that appears to be due to extensive debris within the left main bronchus extending peripherally; bronchoscopy was recommended for further evaluation and possible treatment. Dr. Hogue, pulmonology was consulted. Patient to be maintained on antibiotic coverage Zithromax and Cefepime 1 g every 8 hours, Solu-Medrol every 8 hours and PRN DuoNeb's. Plan for bronchoscopy to evaluate the left mainstem bronchus. Nephrology consulted for management of ESRD. A Halicat was called the following morning for patient in respiratory distress. Oxygen saturations were in the mid 80s on 15 L/min nonrebreather mask with increased respiratory effort. Patient appeared relatively stable but was having difficulty taking an air. Wet read on portable chest x-ray showed opacification of the left hemithorax, unchanged from previous image. Patient received IV Lasix 1. He was placed on BiPAP with 100% FiO2 and transferred to the [facility]. Critical care was consulted for management; patient was emergently intubated and placed on mechanical ventilation requiring pressor support status post bronchoscopy which showed mucoid secretions/mucous plug on the left. Recent echocardiogram in 02/2017 with EF of 55-60% with no regional wall motion abnormalities. Patient was extubated overnight on 05/23, no longer requiring pressor support. In recent days the patient remains hypoxic, becoming increasingly confused. CT of the head on 05/22/2017 was negative for acute process. Possible sepsis versus metabolic encephalopathy. Antibiotics were broadened-Zosyn and vancomycin were added. Peritoneal and blood cultures are pending. Patient was placed on BiPAP but remained hypoxemic with questionable airway protection. Dr. Diaz discussed with the patient's , Jolynn who requested that everything be done. Patient was subsequently reintubated and placed on mechanical ventilation. EEG was suggestive of moderately severe, diffuse disturbance of cerebral function, likely metabolic in nature. MRI of the brain pending. Follow up chest x-ray this morning showed stable bilateral lower lung zone airspace disease, left >right, with probable small left pleural effusion. Palliative Care was consulted to assist with symptom management and to discuss with the family the benefits and burdens of her current illnesses and the options regarding future care. Patient seen and assessed in [facility], room 509. Patient's and family friends were at bedside. Patient remains intubated on mechanical ventilation; sedated on propofol. Per nursing report, patient arousing to light tactile stimuli; withdraws to pain. GCS of 6. MRI brain was suspicious for an embolic ischemic event; CT chest showed normal aeration of the left upper lobe. However, there was abnormal material within the left lower lobe bronchus with collapse of the left lower lobe. There is a new right lower lobe airspace consolidation and new small left pleural effusion. . Function/Cognitive Trajectory . Patient's indicates patient had a shuffling gait at baseline. Patient was reportedly in his normal state of health until 03/23/2017 when the patient suffered a seizure while on a cruise ship and was medically evacuated to a hospital in [facility]. CT report indicated the patient had a lacunar infarct. Patient was transferred to [facility] in [place] for medical management of an acute ischemic CVA. Mild residual right-sided deficits were noted, patient had new onset seizures and was started on Keppra. While hospitalized in [place], the patient was noted to have elevated troponins and was thought to have had a NSTEMI. He underwent a cardiac catheterization with stent placement in the RCA on 04/02/2017. After being medically cleared, the patient was admitted to [facility] for inpatient rehabilitation in [place] on 03/27/17 where he remained until he was discharged to an SNF on 05/05/2017. Upon discharge the patient was total assist for mobility and ADLs; he was tolerating a regular consistency diet with thin liquids although he did require assistance and supervision during mealtimes. . Review of Systems ROS Limitations: Intubated, Altered Mental Status Constitutional: COMPLAINS OF: Change in appetite, Pain, Generalized weakness Respiratory: COMPLAINS OF: Cough, Shortness of breath Cardiovascular: DENIES: Lower Extremity Edema Integumentary: COMPLAINS OF: Abnormal pigmentation, Non-healing sores (BLE) Hematologic/Lymphatics: COMPLAINS OF: Bruising Psychiatric: COMPLAINS OF: Confusion Past Family Social History Coded Allergies: No Known Allergies (Unverified Allergy, Unknown, 05/21/17) Past Medical History COPD NSTEMI with cardiac cath and stent placement in 03/2017 Seizures-03/2017 Hyperlipidemia Obstructive sleep apnea BPH Hypertension End-stage renal-started on peritoneal dialysis in 10/2016 CVA . Past Surgical History Tonsillectomy Tenckhoff catheter placement and revision . Reported Medications Doxycycline Hyclate 100 Mg Cap 100 Mg PO BID Keppra (Levetiracetam) 500 Mg Tab 500 Mg PO BID . Current Medications Medications (Trade) Dose Ordered Sig/Corinna Route Start Time Stop Time Status Last Admin (NS Flush) 2 ml UNSCH PRN IV FLUSH 05/21/17 16:30 05/21/17 17:03 (NS Flush) 2 ml BID IV FLUSH 05/21/17 21:00 05/27/17 08:11 (Narcan Inj) 0.4 mg UNSCH PRN IV PUSH 05/21/17 16:30 (Duoneb Neb) 1 ampule Q4HR NEB PRN NEB 05/21/17 16:30 05/24/17 00:53 (Zithromax) 500 mg Q24H PO 05/22/17 17:00 05/26/17 18:19 (Tessalon) 100 mg TID PRN PO 05/21/17 18:00 05/22/17 04:17 (Ecotrin Ec) 81 mg DAILY PO 05/22/17 09:00 05/27/17 08:11 (Lipitor) 80 mg HS PO 05/21/17 21:00 05/26/17 20:52 (Rocaltrol) 0.25 mcg DAILY PO 05/22/17 09:00 05/27/17 08:11 (CeleXA) 20 mg DAILY PO 05/22/17 09:00 Future Hold 05/25/17 08:42 (Plavix) 75 mg DAILY PO 05/22/17 09:00 05/27/17 08:11 (Neurontin) 100 mg BID PO 05/21/17 21:00 Future Hold 05/25/17 20:29 (Apresoline) 10 mg Q8HR PO 05/21/17 22:00 Future Hold 05/25/17 06:00 (Imdur) 30 mg DAILY PO 05/22/17 09:00 Future Hold (Lactinex) 1 tab TID PO 05/22/17 09:00 05/27/17 08:10 (Keppra) 250 mg HS PO 05/21/17 21:00 05/26/17 20:58 (Keppra) 500 mg DAILY PO 05/22/17 09:00 05/27/17 08:11 (NS Inj) 10 ml WITH DIALYSIS PRN IV FLUSH 05/21/17 19:00 (Heparin Inj) Add 1000 units of Hepa... WITH DIALYSIS PRN IV FLUSH 05/21/17 19:00 Miscellaneous Information Patient in critical care unit? Ass... Q361D .XX 05/22/17 06:30 05/22/17 19:00 (Brethine Inj) 1 mg UNSCH PRN SQ 05/22/17 07:00 (D50w (Vial) Inj) 50 ml UNSCH PRN IV PUSH 05/22/17 07:00 (Glucagon Inj) 1 mg UNSCH PRN OTHER 05/22/17 07:00 (NovoLIN R SUPPLEMENTAL SCALE) 1 Q4H SQ 05/22/17 08:00 05/25/17 00:42 (Heparin Inj) 5,000 units Q12H SQ 05/22/17 17:00 05/27/17 04:37 (Heparin Inj) 1,000 units WITH DIALYSIS PRN XX 05/22/17 09:00 (NS Flush) 10 ml UNSCH PRN IV FLUSH 05/22/17 09:00 (Phoslo) 667 mg TID NG 05/22/17 09:00 05/27/17 08:10 (Lasix Inj) 40 mg DAILY IV PUSH 05/23/17 09:00 Future Hold 05/25/17 08:42 (SoluCORTEF INJ) 50 mg Q12H IV PUSH 05/24/17 16:00 05/27/17 04:38 (Mucomyst 10% Neb) 2 ml QID NEB NEB 05/24/17 12:00 05/27/17 08:00 (Robitussin Liq) 600 mg BID PO 05/24/17 12:00 05/27/17 08:12 (Colace) 100 mg BID PO 05/24/17 21:00 05/27/17 08:11 (Senna Liq) 8.8 mg DAILY PO 05/24/17 18:00 05/27/17 08:12 (KCl) 20 meq DAILY PO 05/25/17 09:00 05/27/17 08:10 (Spiriva Inh) 18 mcg DAILY INH 05/25/17 16:00 (Symbicort 160-4.5 Mcg Inh) 1 puff Q12HR INH 05/25/17 21:00 05/26/17 20:53 (Duoneb Neb) 1 ampule Q4HR NEB NEB 05/25/17 16:00 05/27/17 08:00 (Haldol Inj) 2 mg Q6H PRN IV 05/25/17 16:15 Norepinephrine Bitartrate 250 ml @ 7.5 mls/hr TITRATE PRN IV 05/26/17 06:30 Piperacillin Sod/ Tazobactam Sod 50 ml @ 100 mls/hr Q8H IV 05/26/17 10:00 05/27/17 09:23 (Peridex 0.12% Liq) 15 ml BID@08,20 MT 05/27/17 20:00 UNV Propofol 100 ml @ 0 mls/hr TITRATE PRN IV 05/27/17 09:15 UNV Family History Patient is an only child. Patient's mother during childbirth; his father at age 50 from a myocardial infarction. . Substance Use Tobacco: Patient denies ever smoking Alcohol: Rarely consumes alcohol Prescription med abuse: None known Illicits: None known . Psychosocial History Patient is originally from the [place]. He is an only child. His mother during childbirth and his father at the age of 50 from an [place]. He has been to his for approximately 57 years. They moved to [place] 44 years ago. They have 2 adult children, 1 daughter and 1 son. 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 . Spiritual/Cultural Factors Zoroastrianism pauline. . Living Will: Copy in medical record Health Care Surrogate: Copy in medical record Date completed: 04/07/2017?? . Health Care Surrogate(s): HCS form completed 04/07 without year included names patient's (Jolynn) as the healthcare decision-maker. Per [place] statutes, in the absence of written advanced directives healthcare proxy decision making would fall to the patient' s . . Documented care wishes: Patient completed a living will on 04/07 with no year included. It states if the patient were to be diagnosed with a terminal condition, ES condition or be in a persistent vegetative states with no reasonable chance of recovery he would would want life prolonging procedures withheld or withdrawn and be allowed to pass peacefully and naturally with only interventions or procedures that would provide comfort. However, patient's states that this is not what patient would want. She does not think the patient understood what he was "saying" when he signed the document. . Today's verbally stated goals: Given patient's clinical condition, he is unable to participate in establishing medical treatment goals at this time. . Family/friends goals: Patient's wants to give the patient a few days to determine if his neurological status improves. Her goals remain aggressive. . Ethical and Legal Issues No known ethical issues impacting care at this time. Physical Exam Vital Signs Date Time Temp Pulse Resp B/P (MAP) Pulse Ox O2 Delivery O2 Flow Rate FiO2 05/27/17 09:15 96 60 05/27/17 08:20 99 50 05/27/17 06:00 54 05/27/17 05:05 92 60 05/27/17 04:00 99.1 59 22 161/70 (100) 100 05/27/17 04:00 59 05/27/17 02:00 60 05/27/17 00:17 96 60 05/27/17 00:00 99.6 59 26 124/58 (80) 98 05/27/17 00:00 59 05/26/17 22:00 60 05/26/17 21:29 99 BiPAP 70 05/26/17 21:26 100 80 18 20:00 67 05/26/17 20:00 99.0 62 24 119/58 (78) 100 05/26/17 19:31 70 25 114/61 (78) 98 18 19:30 61 25 100 05/26/17 19:00 65 27 130/60 (83) 98 05/26/17 19:00 Bi-Pap 90 05/26/17 18:30 66 27 145/69 (94) 99 18 18:00 63 18 18:00 63 24 122/60 (80) 98 05/26/17 17:45 97 90 05/26/17 17:30 99 Bi-Pap 80 05/26/17 17:30 66 21 129/89 (102) 91 05/26/17 17:00 72 26 144/68 (93) 90 05/26/17 16:30 66 20 138/64 (88) 92 05/26/17 16:00 63 05/26/17 16:00 98.4 63 18 127/98 (108) 100 05/26/17 16:00 98.6 05/26/17 14:00 59 05/26/17 12:00 57 05/26/17 12:00 98.8 57 18 100/51 (67) 100 . 18 18 19:00 07:00 Output Total 523 ml Balance -523 ml Peritoneal Fluid 523 ml . Exam CONSTITUTIONAL/GENERAL: This is an elderly, male patient in no acute distress. TUBES/LINES/DRAINS: PIV, CVL, urinary catheter, ETT, OGT SKIN: No jaundice, rashes, or lesions. Ecchymoses on upper extremities. No wounds seen anteriorly. Skin temperature appropriate. Not diaphoretic. HEAD: Atraumatic. Normocephalic. EYES: Pupils equal and round and reactive. Extraocular motions intact. No scleral icterus. No injection or drainage. Fundi not examined. ENT: Hearing grossly normal. Nose without bleeding or purulent drainage. NECK: Trachea midline. Supple, nontender. No palpable thyroid enlargement or nodularity. CARDIOVASCULAR: Regular rate and rhythm without murmurs, gallops, or rubs. No JVD. Peripheral pulses symmetric. RESPIRATORY/CHEST: Symmetric, unlabored respirations. Clear to auscultation. Breath sounds equal bilaterally. Coarse air exchange. GASTROINTESTINAL: Abdomen soft, non-tender, nondistended. No hepato-splenomegaly , or palpable masses. No guarding. Bowel sounds present. GENITOURINARY: Without palpable bladder distension. MUSCULOSKELETAL: Extremities without clubbing, cyanosis, or edema. No mottling or clubbing. Muscle atrophy in BLE LYMPHATICS: No palpable cervical or supraclavicular adenopathy. NEUROLOGICAL: Encephalopathic. Arouses minimally to verbal, tactile stimuli motor and sensory grossly within normal limits. PSYCHIATRIC: No obvious anxiety/depression. No apparent hallucinations or other psychotic thought process. . Diagnostic Tests Laboratory Laboratory Tests Test 05/24/17 15:54 05/25/17 03:50 05/25/17 20:19 05/26/17 04:20 Potassium Level 3.6 MEQ/L (3.5-5.1) 3.4 MEQ/L (3.5-5.1) 3.5 MEQ/L (3.5-5.1) White Blood Count 7.1 TH/MM3 (4.0-11.0) 9.7 TH/MM3 (4.0-11.0) Red Blood Count 3.13 MIL/MM3 (4.50-5.90) 3.42 MIL/MM3 (4.50-5.90) Hemoglobin 10.0 GM/DL (13.0-17.0) 10.6 GM/DL (13.0-17.0) Hematocrit 29.1 % (39.0-51.0) 31.4 % (39.0-51.0) Mean Corpuscular Volume 92.9 FL (80.0-100.0) 91.6 FL (80.0-100.0) Mean Corpuscular Hemoglobin 31.9 PG (27.0-34.0) 31.0 PG (27.0-34.0) Mean Corpuscular Hemoglobin Concent 34.3 % (32.0-36.0) 33.9 % (32.0-36.0) Red Cell Distribution Width 15.3 % (11.6-17.2) 15.3 % (11.6-17.2) Platelet Count 167 TH/MM3 (150-450) 166 TH/MM3 (150-450) Mean Platelet Volume 8.3 FL (7.0-11.0) 8.4 FL (7.0-11.0) Neutrophils (%) (Auto) 77.5 % (16.0-70.0) 81.1 % (16.0-70.0) Lymphocytes (%) (Auto) 11.1 % (9.0-44.0) 8.8 % (9.0-44.0) Monocytes (%) (Auto) 10.8 % (0.0-8.0) 9.5 % (0.0-8.0) Eosinophils (%) (Auto) 0.1 % (0.0-4.0) 0.4 % (0.0-4.0) Basophils (%) (Auto) 0.5 % (0.0-2.0) 0.2 % (0.0-2.0) Neutrophils # (Auto) 5.5 TH/MM3 (1.8-7.7) 7.8 TH/MM3 (1.8-7.7) Lymphocytes # (Auto) 0.8 TH/MM3 (1.0-4.8) 0.8 TH/MM3 (1.0-4.8) Monocytes # (Auto) 0.8 TH/MM3 (0-0.9) 0.9 TH/MM3 (0-0.9) Eosinophils # (Auto) 0.0 TH/MM3 (0-0.4) 0.0 TH/MM3 (0-0.4) Basophils # (Auto) 0.0 TH/MM3 (0-0.2) 0.0 TH/MM3 (0-0.2) CBC Comment DIFF FINAL DIFF FINAL Differential Comment Blood Urea Nitrogen 64 MG/DL (7-18) 60 MG/DL (7-18) Creatinine 8.03 MG/DL (0.60-1.30) 8.32 MG/DL (0.60-1.30) Random Glucose 86 MG/DL (74-106) 82 MG/DL (74-106) Calcium Level 9.2 MG/DL (8.5-10.1) 9.2 MG/DL (8.5-10.1) Phosphorus Level 5.3 MG/DL (2.5-4.9) 4.2 MG/DL (2.5-4.9) Sodium Level 139 MEQ/L (136-145) 141 MEQ/L (136-145) Chloride Level 102 MEQ/L (98-107) 103 MEQ/L (98-107) Carbon Dioxide Level 29.7 MEQ/L (21.0-32.0) 27.6 MEQ/L (21.0-32.0) Anion Gap 7 MEQ/L (5-15) 10 MEQ/L (5-15) Estimat Glomerular Filtration Rate 6 ML/MIN (>89) 6 ML/MIN (>89) Blood Gas Puncture Site RT RADIAL Blood Gas Patient Temperature 98.6 Blood Gas HCO3 23 mmol/L (22-26) Blood Gas Base Excess -1.5 mmol/L (-2-2) Blood Gas Oxygen Saturation 94 % (90-100) Arterial Blood pH 7.37 (7.380-7.420) Arterial Blood Partial Pressure CO2 41 mmHg (38-42) Arterial Blood Partial Pressure O2 90 mmHg (61-120) Arterial Blood Oxygen Content 13.8 Vol % (12.0-20.0) Arterial Blood Carboxyhemoglobin 0.7 % (0-4) Arterial Blood Methemoglobin 1.1 % (0-2) Blood Gas Hemoglobin 10.4 G/DL (12.0-16.0) Oxygen Delivery Device PRB Blood Gas Liter Flow 15 L/M Activated Partial Thromboplast Time 34.8 SEC (24.3-30.1) Total Protein 6.4 GM/DL (6.4-8.2) Albumin 2.4 GM/DL (3.4-5.0) Magnesium Level 1.7 MG/DL (1.5-2.5) Alkaline Phosphatase 46 U/L (45-117) Aspartate Amino Transf (AST/SGOT) 28 U/L (15-37) Alanine Aminotransferase (ALT/SGPT) 21 U/L (12-78) Total Bilirubin 0.4 MG/DL (0.2-1.0) Lactic Acid Level 3.3 mmol/L (0.4-2.0) Ammonia 16 MCMOL/L (11-32) Amylase Level 79 U/L (25-115) Lipase 193 U/L (73-393) Thyroid Stimulating Hormone 3rd Gen 2.430 uIU/ML (0.358-3.740) Test 05/26/17 18:00 05/27/17 04:47 Blood Gas Puncture Site RT RADIAL Blood Gas Patient Temperature 98.6 Blood Gas HCO3 24 mmol/L (22-26) Blood Gas Base Excess -0.2 mmol/L (-2-2) Blood Gas Oxygen Saturation 96 % (90-100) Arterial Blood pH 7.41 (7.380-7.420) Arterial Blood Partial Pressure CO2 39 mmHg (38-42) Arterial Blood Partial Pressure O2 106 mmHg (61-120) Arterial Blood Oxygen Content 13.8 Vol % (12.0-20.0) Arterial Blood Carboxyhemoglobin 0.8 % (0-4) Arterial Blood Methemoglobin 1.1 % (0-2) Blood Gas Hemoglobin 10.1 G/DL (12.0-16.0) Oxygen Delivery Device BiPAP Blood Gas Ventilator Setting [id number] Blood Gas Inspired Oxygen 90 % White Blood Count 10.8 TH/MM3 (4.0-11.0) Red Blood Count 3.35 MIL/MM3 (4.50-5.90) Hemoglobin 10.4 GM/DL (13.0-17.0) Hematocrit 30.9 % (39.0-51.0) Mean Corpuscular Volume 92.3 FL (80.0-100.0) Mean Corpuscular Hemoglobin 31.2 PG (27.0-34.0) Mean Corpuscular Hemoglobin Concent 33.8 % (32.0-36.0) Red Cell Distribution Width 15.3 % (11.6-17.2) Platelet Count 189 TH/MM3 (150-450) Mean Platelet Volume 8.3 FL (7.0-11.0) Neutrophils (%) (Auto) 80.4 % (16.0-70.0) Lymphocytes (%) (Auto) 9.2 % (9.0-44.0) Monocytes (%) (Auto) 9.0 % (0.0-8.0) Eosinophils (%) (Auto) 1.1 % (0.0-4.0) Basophils (%) (Auto) 0.3 % (0.0-2.0) Neutrophils # (Auto) 8.7 TH/MM3 (1.8-7.7) Lymphocytes # (Auto) 1.0 TH/MM3 (1.0-4.8) Monocytes # (Auto) 1.0 TH/MM3 (0-0.9) Eosinophils # (Auto) 0.1 TH/MM3 (0-0.4) Basophils # (Auto) 0.0 TH/MM3 (0-0.2) CBC Comment DIFF FINAL Differential Comment Blood Urea Nitrogen 59 MG/DL (7-18) Creatinine 8.76 MG/DL (0.60-1.30) Random Glucose 97 MG/DL (74-106) Total Protein 6.5 GM/DL (6.4-8.2) Albumin 2.7 GM/DL (3.4-5.0) Calcium Level 9.7 MG/DL (8.5-10.1) Alkaline Phosphatase 48 U/L (45-117) Aspartate Amino Transf (AST/SGOT) 26 U/L (15-37) Alanine Aminotransferase (ALT/SGPT) 18 U/L (12-78) Total Bilirubin 0.5 MG/DL (0.2-1.0) Sodium Level 141 MEQ/L (136-145) Potassium Level 3.5 MEQ/L (3.5-5.1) Chloride Level 104 MEQ/L (98-107) Carbon Dioxide Level 26.2 MEQ/L (21.0-32.0) Anion Gap 11 MEQ/L (5-15) Estimat Glomerular Filtration Rate 6 ML/MIN (>89) Result Diagram: 05/27/17 0447 05/27/17 0447 Microbiology Microbiology Date/Time Source Procedure Growth Status 05/26/17 10:20 Blood Peripheral Aerobic Blood Culture Pending Received 05/26/17 10:20 Blood Peripheral Anaerobic Blood Culture Pending Received 05/26/17 10:15 Blood Peripheral Aerobic Blood Culture Pending Received 05/26/17 10:15 Blood Peripheral Anaerobic Blood Culture Pending Received 05/26/17 09:00 Fluid Peritoneal Fluid Gram Stain - Final Resulted 05/26/17 09:00 Fluid Peritoneal Fluid Body Fluid Culture Pending Resulted Procedures 05/22/2017: Left IJ CVL placed 05/22/2017: Intubation 05/23/2017: Extubation 05/27/2017: Reintubation . Patient/Family Conference Issues Discussed: * Palliative care role, purpose, approach * Additional medical, psychosocial, and spiritual history * Patients general health, functional status, and cognitive changes in the months leading up to the current hospitalization * Patient/family understanding of the current medical problems * Patient/family understanding of prognosis * Patients goals of care as best understood from advance directives and/or conversations and/or values * Current medical treatment options and benefits/burdens of those options * Likely scenarios comparing ongoing aggressive care with a transition to comfort measures only * Questions answered to the best of my ability * Palliative care contact information provided Assessment and Plan Disease Oriented Problem List: (1) Troponin level elevated (2) Elevated CK (3) Elevated brain natriuretic peptide (BNP) level (4) Hyperlipidemia (5) Hypertension (6) NSTEMI (non-ST elevated myocardial infarction) (7) Peritoneal dialysis catheter dysfunction (8) Acute on chronic kidney failure (9) COPD (chronic obstructive pulmonary disease) (10) CHF (congestive heart failure) (11) Seizures (12) Lacunar infarct, acute (13) C. difficile colitis (14) Bronchial obstruction (15) Anemia (16) Pneumonia Symptom Scale: (1) Encephalopathy 0-10 Scale: Unable to quantify (2) Dyspnea 0-10 Scale: Unable to quantify (3) Debility 0-10 Scale: Unable to quantify Pertinent Non-Medical Issues Psychosocial:Patient is originally from the [place]. He is an only child. His mother during childbirth and his father at the age of 50 from an [place]. He has been to his for approximately 57 years. They moved to [place] 44 years ago. They have 2 adult children, 1 daughter and 1 son. 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 Spiritual: Zoroastrianism pauline Legal:Decision making: HCS form completed 04/07 without year included names patient's (Jolynn) as the healthcare decision-maker. Per [place] statutes, in the absence of written advanced directives healthcare proxy decision making would fall to the patient's . Ethical issues impacting care: No known ethical issues impacting care at this time. . Important Contacts Jolynn Mcgovern, spouse: [phone] . Prognosis Patient is an 82-year-old male with multiple comorbidities who has exhibited an acute decline over the past 6 months. Patient is currently requiring ventilator support secondary to respiratory failure and cognitive deficits. MRI on 2017 suspicious for embolic ischemic events. Patient is high risk for ongoing decline and complications. . Code Status: Full Code Plan * FULL CODE * Decision making: HCS form completed 04/07 without year included names patient' s (Jolynn) as the healthcare decision-maker. Per [place] statutes, in the absence of written advanced directives healthcare proxy decision making would fall to the patient's . * Patient completed a living will on 04/07 with no year included. It states if the patient were to be diagnosed with a terminal condition, ES condition or be in a persistent vegetative states with no reasonable chance of recovery he would would want life prolonging procedures withheld or withdrawn and be allowed to pass peacefully and naturally with only interventions or procedures that would provide comfort. However, patient's states that this is not what patient would want. She does not think the patient understood what he was "saying" when he signed the document. Discussed written advanced directives with patient's for 18 minutes. * Goals: Patient's would like to give the patient a few days to see if he shows any neurological improvement. Earlier today the patient's stated her would want everything done to be kept alive, after further discussions this afternoon she indicates the patient may not want "everything done" if he would have ongoing cognitive impairments. Until that time, patient' s requests that the patient remade a FULL CODE. * Discussed patient/family's current medical treatment goals with bedside nurse (Jeannette) and brusher and shearer (Dr. Diaz). * Patient children are making arrangement to travel to [place] to support their mother and to assist with verification of medical treatment goals. * Palliative care contact information was provided to the patient's . * Palliative care spoke to patient's son and [id number] via telephone. Questions answered to the best of my ability. * Symptom management: == Dyspnea: Patient presented to ED for evaluation of shortness of breath and hypoxemic episode. CT chest revealed complete collapse of the left lung appears to be due to extensive debris within the left mainstem bronchus extending peripherally. Bronchoscopy is recommended for further evaluation and possible treatment. The esophagus appears to impinge on the posterior wall of the trachea and may partially obscure the lumen of the upper thorax. No obvious hilar mass lesion although anatomic detail is limited due to the adjacent collapsed lung. This area can be reevaluated after clearing the left mainstem bronchus and reexpansion of the left lung. Pleural parenchymal atelectasis or scarring posteriorly in the superior segment of the right lower lobe. Right lung is otherwise clear. Atherosclerotic calcifications of the coronary arteries; calcification of the mitral valve annulus. Status post intubation and bronchoscopy on 05/27/2017. Continue to monitor; will initiate spontaneous breathing trials when/if patient stabilizes. == Debility: Patient has experienced an acute decline in the past several months secondary to recent stroke with associated seizures and NSTEMI in 2017. Patient received 4 weeks of rehab at [facility] for rehabilitation; he was then transferred to a [facility] facility for additional therapy. Upon discharge [facility] on 05/05/17, the patient was total assist for mobility and ADLs; he was tolerating a regular consistency diet with thin liquids although he did require assistance and supervision during mealtimes. Patient remains significantly debilitated and will likely never return to his previous functioning level. == Encephalopathy: Patient having progressively increased encephalopathy, possibly multifactorial. EEG was suggestive of moderately severe, diffuse disturbance of cerebral function, probably metabolic in nature. MRI on 05/27/2017 suspicious for embolic ischemic event. Hypoxemia may also be a contributing factor. We will continue to monitor. * Palliative care will continue to follow this patient throughout his hospitalization to establish trust, assist with symptom management and clarification of medical treatment goals. Thank you for the opportunity to participate in the care of Mr. Mcgovern. . Attestation To help prompt me to consider important information that might be impacting today's encounter and assessment, information from prior notes written by myself or my colleagues may have been "brought forward" into today's note. My signature on this note, however, is an attestation that I personally performed the exam, history, and/or decision-making noted today, and, unless otherwise indicated, the interactions with patient, family, and staff as well as the review of records all occurred today. I also attest that the listed assessment and stated plan reflect my best clinical judgment today based on the combination of historical information, prior notes, and today's exam/ interactions. When time spent is documented, it refers only to time spent today by the signer, or if indicated, combined time spent today by collaborating physician/nurse practitioner. . Dayna Henson May 27, 2017 11:30
--- NOTE | 2017-05-27 12:39 | RADRPT ---
EXAM DATE/TIME: 05/27/2017 11:45 [facility] COMPARISON: No previous studies available for comparison. INDICATIONS : Altered mental status. MEDICAL HISTORY : Hypertension. Chronic obstructive pulmonary disease. SURGICAL HISTORY : Tonsillectomy. ENCOUNTER: Initial ACUITY: 4-6 days PAIN SCORE: Nonresponsive. LOCATION: Head TECHNIQUE: Multiplanar, multisequence MRI of the brain was performed without contrast. FINDINGS: Scattered focal areas of restricted diffusion are seen in both occipital lobes and the left cerebella r hemisphere. There is moderate central and cortical atrophy with marked periventricular white matter changes. The re are no extra-axial fluid collections appreciated. There is no parenchymal hemorrhage The posterior fossa shows moderate periventricular white matter changes as well. Single 3 mm restric juan diffusion is noted left hemisphere without hemorrhage. CONCLUSION: Marked central and cortical atrophy with periventricular white matter changes Minimal focal areas of restricted diffusion in both occipital lobes and left cerebellar hemisphere Suspicious for embolic ischemic event. Kian Adkins MD FACR on May 27, 2017 at 12:34 Board Certified Radiologist. This report was verified electronically.
--- NOTE | 2017-05-27 12:46 | RADRPT ---
EXAM DATE/TIME: 05/27/2017 12:16 [facility] COMPARISON: CT THORAX W/O CONTRAST, April 15, 2017, 10:35. CT THORAX W/O CONTRAST, May 21, 2017, 16:29. INDICATIONS : Evaluate for infiltrate, aspiration RADIATION DOSE: 12.71 CTDIvol (mGy) MEDICAL HISTORY : Cardiovascular disease. Hypertension. Chronic obstructive pulmonary disease. SURGICAL HISTORY : None. ENCOUNTER: Initial ACUITY: 1 day PAIN SCALE: Non-responsive LOCATION: chest TECHNIQUE: Volumetric scanning of the chest was performed. Using automated exposure control and adjustment of [facility] mA and/or kV according to patient size, radiation dose was kept as low as reasonably achievable to obtain optimal diagnostic quality images. DICOM format image data is available electronically for r eview and comparison. Follow-up recommendations for detected pulmonary nodules are based at a minimum on nodule size and pa tient risk factors according to Fleischner Society Guidelines. FINDINGS: LUNGS: There is right lower lobe airspace consolidation medially, new since the prior CT. Left upper lobe is well aerated. There is material within the left lower lobe bronchus with significant volume loss nettie ng with possible consolidation in the left lower lobe. No pneumothorax is present. PLEURAE: There is trace left pleural fluid. No pleural thickening is identified. MEDIASTINUM: The heart and great vessels demonstrate no acute abnormality. There is no mediastinal or hilar lymph adenopathy. Coronary artery calcification is present along with moderate atherosclerotic disease of t aorta. Endotracheal tube is above the queenie. Nasogastric tube distal tip is in the distal gastric body. There is a left IJ central line present with distal tip in the left brachiocephalic vein. AXILLAE: Within normal limits. No lymphadenopathy. MUSCULOSKELETAL: There are degenerative changes of the thoracic spine. No acute osseous abnormality is identified. MISCELLANEOUS: Small volume of free fluid is present in the upper abdomen adjacent to the liver and spleen, new sinc e the prior study. There is an exophytic 2 cm lesion arising from the right mid kidney. It has densit y measurements consistent with a simple cyst. There is an ovoid fat density heterogeneous mass superf icial to the left scapula measuring 4.9 x 2.2 cm. CONCLUSION: 1. There is normal aeration of the left upper lobe. However, there is abnormal material within the le ft lower lobe bronchus with collapse of the left lower lobe. 2. There is a new right lower lobe airspace consolidation and new small left pleural effusion. 3. There is new small volume of free fluid in the upper abdomen. 4. There is a fat density ovoid mass superficial to the left scapula measuring 4.9 x 2.2 cm, stable f rom the prior study and likely representing a lipoma. Joe Curry MD on May 27, 2017 at 12:37 Board Certified Radiologist. This report was verified electronically.
[2017-05-27] MEDS: AZITHROMYCIN 250 MG TAB PO SCH (16:13)
[2017-05-27] MEDS: PROPOFOL 1000 MG/100 ML INJ 100 ML IV PRN (16:21)
--- NOTE | 2017-05-27 16:45 | MB ---
cc: Avery Brizuela MD, PhD DATE: 05/27/2017 REASON FOR CONSULTATION: Stroke. HISTORY OF PRESENT ILLNESS: Mr. Mcgovern is an 82-year-old man who has a history of previous stroke who was residing at the rehab center in [place] having suffered a recent stroke with right-sided weakness. He came to the ER on 05/21/2017 for shortness of breath and hypoxemia. CT of the thorax showed complete collapse of the left lung with occlusion of the left main bronchus. The patient was emergently intubated and is becoming increasingly confused. The patient also has history of recent seizure for which he takes Keppra. He underwent bronchoscopy to clear mucus plug. As part of his evaluation for decreased mental status, he had an MRI of the brain which showed very small areas of restricted diffusion in bilateral occipital lobes as well as the left cerebral hemisphere suspicious for embolic ischemic event. No hemorrhage was identified. CURRENT MEDICATIONS: 1. He is on propofol. 2. Piperacillin. 3. Norepinephrine. 4. Symbicort. 5. Haldol 6. Spiriva. 7. DuoNeb. 8. Potassium chloride. 9. Colace. 10. Senna. 11. Solu-Cortef. 12. Robitussin. 13. Zithromax. 14. Subcutaneous heparin 5000 units b.i.d. 15. Aspirin 81 mg daily. 16. Plavix 75 mg daily. 17. Calcitriol 0.25 mg daily. 18. Keppra 500 mg p.o. daily and 250 mg at bedtime. 19. Lipitor 80 mg daily. 20. Tessalon. NEUROLOGICAL EXAMINATION: VITAL SIGNS: Blood pressure 124/59, pulse is 54, respiratory rate is 16. Temperature is 97.8 degrees. Higher cortical function: He is sedated. Cranial nerves: Pupils 2 mm, symmetric reactive. Extraocular movements are intact to doll's maneuver. Motor exam: No spontaneous limb movement. IMAGING STUDIES: By MRI he has three very small areas of acute stroke which probably are embolic. RECOMMENDATIONS: Would like to get an MRA of the brain, as well as the neck to evaluate the posterior circulation as well as the basilar artery. Also get an echocardiogram and monitor cardiac telemetry, rule out fibrillation. Would also continue Plavix and aspirin for now. If cardioembolic source is identified, would need to consider anticoagulation if he is a candidate. Avery Brizuela MD, PhD CARMEN/YADIEL , 04:09 PM , 04:44 PM
[2017-05-27] MEDS: CHLORHEXIDINE 0.12% (ORAL KIT) 15 ML CUP MT SCH (20:00)
[2017-05-27] MEDS: ATORVASTATIN 80 MG TAB PO SCH (20:20)
[2017-05-27] MEDS: levETIRAcetam 250 MG TAB PO SCH (20:20)
[2017-05-28] VITALS (19 sets, daily range): BP systolic 101–147; BP diastolic 55–67; PULSE 53–68; RESP 15–20; TEMP 97.6–98.7; O2SAT 99–100
[2017-05-28] MEDS: RESP: ALBUTEROL 2.5 MG/IPRATROPIUM 0.5 MG NEB (SCH) NEB ×6 (00:42→20:54)
[2017-05-28] MEDS: PIPERACIL-TAZO 2.25 GM PREMIX 50 ML IV SCH ×3 (02:00→17:05)
[2017-05-28] MEDS: INSULIN NovoLIN REGULAR SUPPLEMENTAL SCALE SQ SCH ×7 (04:00→23:31)
[2017-05-28] MEDS ORDERED: ALTEPLASE RECOMBINANT 2 MG VIAL OTHER ONE ×3 (05:15)
[2017-05-28] MEDS: HYDROCORTISONE SOD SUCCINATE 100 MG VIAL IV PUSH SCH ×2 (05:24→15:56)
[2017-05-28] MEDS: HEPARIN SODIUM - SQ 10,000 UNITS/ML VIAL SQ SCH ×2 (05:25→16:00)
--- NOTE | 2017-05-28 08:11 | HHI.NPPN ---
Subjective General Problems: Anemia Renal Failure: Chronic, End Stage Renal Disease Interval History patient has suffered embolic stroke. Notes were reviewed. Review of Systems General General Remarks unable to obtain Objective Data Data Vital Signs Date Time Temp Pulse Resp B/P (MAP) Pulse Ox O2 Delivery O2 Flow Rate FiO2 05/28/17 06:00 62 05/28/17 04:20 100 35 05/28/17 04:00 98.5 54 15 127/60 (82) 100 05/28/17 04:00 35 05/28/17 04:00 54 05/28/17 02:00 55 05/28/17 00:42 100 35 05/28/17 00:00 68 05/28/17 00:00 98.7 68 20 112/65 (81) 100 05/28/17 00:00 35 05/27/17 22:00 56 05/27/17 20:10 100 35 05/27/17 20:00 35 05/27/17 20:00 98.4 53 15 105/55 (72) 100 05/27/17 20:00 53 05/27/17 18:00 59 05/27/17 17:19 100 35 05/27/17 16:00 99.2 59 8 92/55 (67) 98 05/27/17 16:00 59 05/27/17 14:00 54 05/27/17 12:05 99 100 05/27/17 12:00 97.9 124/59 (80) 05/27/17 10:00 60 05/27/17 09:15 96 60 05/27/17 08:20 99 50 -: 05/27/17 0447 05/27/17 0447 Microbiology 05/27/17 Gram Stain - Final, Resulted 05/27/17 Sputum Culture, Resulted Pending Tubes & Lines: Tenckhoff Catheter Tubes & Lines Comment NG tube TLC right IJ Drip Comment Propofol Physical Exam General Appearance: Malnourished Appearance Remarks on the ventilator. Eyes Eye Exam: Pupils Equal Throat Throat Exam: Oral Mucosa [place] & Moist Neck Neck Exam: Neck Supple Pulmonary Resp Exam: Crackles, Rhonchi, Decreased Bases Cardiology CV Exam: Regular, Normal Sinus Rhythm Gastrointestinal/Abdomen GI Exam: Soft GI Remarks PD catheter is in place. Musculoskeletal MS Exam: Joints Intact, Atrophy, Unable to Ambulate Integumentary Skin Exam: Warm, Dry, Intact Extremeties Extremities Exam: No Edema, Pedal Pulses Palpable Neurologic Neuro Exam: Unresponsive, Sedated Assessment/Plan Discussed Condition With: Spouse Assessment Summary: Anemia of CKD, Malnutrition, Hypotension, End Stage Renal Disease Problem List: (1) End stage renal disease ICD Codes: N18.6 - End stage renal disease Status: Chronic Plan: We will continue PD for now. UF of 1100 today. Currently on 9 hr treatment time that includes 4 cycles of 2500 ml with no last fill. We are using 2.5% dextrose PD solution. Variable UF. Last admission he had issues with catheter and fluid retention last admission, had catheter manipulated twice. Lasix on hold. Minimal urine output. Avoid IVF administration Replace potassium as needed. Monitor phosphorus level periodically. Will continue with PD for now. (2) Bronchial obstruction ICD Codes: J98.09 - Other diseases of bronchus, not elsewhere classified Status: Acute Plan: Patient appears to have redeveloped atelectasis of the left lung. s/p reintubation (3) Hypoxia ICD Codes: R09.02 - Hypoxemia Status: Resolved Plan: See above. (4) Pneumonia ICD Codes: J18.9 - Pneumonia Status: Resolved Plan: Blood cultures have been negative so far On Vancomycin, Zithromax, an Zosyn Off cefepime lactic acid is elevated (5) Hypertension ICD Codes: I10 - Essential (primary) hypertension Status: Chronic Plan: Antihypertensives on hold. Monitor BP,use pressors if needed for BP support (6) Anemia ICD Codes: D64.9 - Anemia, unspecified Status: Chronic Plan: Given Epogen on 05/23/17 Plan Gabriel Salcedo MD May 28, 2017 08:11
[2017-05-28] MEDS: CALCITRIOL 0.25 MCG CAP PO SCH (08:14)
[2017-05-28] MEDS: ASPIRIN EC 81 MG TABEC PO SCH (08:14)
[2017-05-28] MEDS: SENNOSIDES SYRUP 8.8 MG/5 ML CUP PO SCH (08:14)
[2017-05-28] MEDS: levETIRAcetam 500 MG TAB PO SCH (08:14)
[2017-05-28] MEDS: POTASSIUM CHLORIDE 20 MEQ CONTROLLED RELEASE TAB PO SCH (08:14)
[2017-05-28] MEDS: guaiFENesin SOLUTION 200 MG/10 ML CUP PO SCH ×2 (08:14→20:40)
[2017-05-28] MEDS: CALCIUM ACETATE 667 MG CAP NG SCH ×3 (08:15→17:04)
[2017-05-28] MEDS: CHLORHEXIDINE 0.12% (ORAL KIT) 15 ML CUP MT SCH ×2 (08:15→20:48)
[2017-05-28] MEDS: CLOPIDOGREL 75 MG TAB PO SCH (08:15)
[2017-05-28] MEDS: LACTOBACILLUS ACIDOPHILUS TAB PO SCH ×3 (08:15→17:04)
[2017-05-28] MEDS: DOCUSATE SODIUM 100 MG CAP PO SCH ×2 (08:15→20:40)
[2017-05-28] MEDS: SODIUM CHLORIDE 0.9% FLUSH 10 ML FLUSH IV FLUSH SCH ×2 (08:15→20:40)
[2017-05-28] MEDS: BUDESONIDE-FORMOTEROL 160/4.5 MCG INHALER INH SCH ×2 (08:15→21:00)
[2017-05-28] MEDS ORDERED: ROCURONIUM INJ 50 MG/5 ML VIAL ONE (09:45)
--- NOTE | 2017-05-28 10:18 | PD.PROCEDR ---
Procedure Note Procedure PROCEDURE: Fiberoptic bronchoscopy with diagnostic and therapeutic lavage ANESTHESIA: Continuous propofol, IV fentanyl 100 mcg 1, Rocuronium 50 mg IV. The patient is intubated and already on ventilator support. PREOP DIAGNOSIS: Atelectasis bilateral lower lobes POSTOP DIAGNOSIS: Same PROCEDURE: The Olympus fiberoptic bronchoscope was advanced via the endotracheal tube into the trachea. The right main bronchus, right upper lobe segmental bronchi and bronchus intermedius were devoid of any major secretions. Moderate amount of thick secretions encountered in right middle lobe and right lower lobe secretions which was lavaged and suctioned out with multiple attempts. Bronchoscope was then introduced in the left main bronchus which showed showed small amount of mucoid secretions. The left lower lobe and left upper lobe/ lingular segmental bronchi had moderate amount of thick secretions which were lavaged and suctioned out. BAL specimen collected from right and left lower lobe. Patient tolerated procedure well sats were maintained above 90% throughout the procedure. Blood loss was less than 1 mL Santiago Diaz MD May 28, 2017 10:18
--- NOTE | 2017-05-28 10:35 | HHI.CCPN ---
Subjective Remarks/Hospital Course Patient is an 82-year-old male with a past medical history of hypertension, obstructive sleep apnea on CPAP, COPD, CVA, end-stage renal disease on peritoneal dialysis who was admitted under hospitalist service on 05/21/2017 for respiratory distress. He had a chest x-ray on arrival which showed complete opacification of the left hemithorax with left shift of the mediastinum. Subsequently, he had CT chest without contrast which showed collapse of the left lung that appears to be due to extensive debris within the left main stem bronchus extending peripherally. No obvious hilar mass seen. A pleural parenchymal atelectasis or scarring posteriorly in the superior segment of right lower lobe noted as well. The patient was seen by Dr. Hogue from pulmonary service and scheduled to undergo a bronchoscopy. He had an ABG early this morning on a nonrebreather mask which showed acute hypoxemic respiratory failure with a pH of 7.40, CO2 of 37, PaO2 59, saturation 87%. The patient was placed on BiPAP with 100% FIO2 and transferred to [facility] [place]. Critical care medicine was consulted for critical care management. When seen, the patient had a saturation of 90% on 100% FIO2. Due to worsening respiratory status, he was immediately intubated by myself and placed on full mechanical ventilation. Most of the history was obtained from reviewing the medical records. A repeat chest x-ray this morning prior to intubation showed no significant change with complete collapse of the left lung. 05/23 Patient remains intubated, sedated with Fentanyl drip. Required Levophed post intubation now off pressor. Afebrile. s/p bronch yesterday showed thick mucoid secretions/mucous plugs on left suctioned to clear CXR post bronch showed improved aeration on left. 05/24 Patient was extubated yesterday placed on partial non rebreather overnight. Awake and alert. Afebrile. 05/25: Patient remains on partial nonrebreather. Unable to wean remains hypoxic. Intermittently confused oriented to person and somewhat to place 05/26: Patient remains increasingly confused. Possible sepsis and metabolic encephalopathy cannot be ruled out. Check EEG. Broaden antibiotic with Zosyn, vancomycin. Will culture blood and peritoneal fluid. Use as needed Haldol for confusion/agitation. Patient was hypotensive in a.m. improved with IV albumin bolus 05/27: Patient profoundly hypoxemic placed on BiPAP, FiO2 was increased to 90% initially now weaned to 60%. Remains altered hard to arouse. Questionable airway protection, not a candidate for BiPAP. I discussed with his Jolynn Regalado who requested everything to be done. Patient was intubated and placed on mechanical ventilation. Will check MRI of brain, neurology consult as appropriate. His airway is anterior, Grade 2-3 view on DL 05/28: Remains intubated sedated. Dr. Brizuela consulted for bilateral occipital and left cerebellar embolic stroke. MRA of the brain and neck ordered, 2D echo also pending. Continue Plavix and aspirin for now. Neuro Dr. Brizuela. Bronchoscopy performed today for bilateral lower lobe atelectasis. Moderate amount of thick secretions removed Objective Vital Signs Date Time Temp Pulse Resp B/P (MAP) Pulse Ox O2 Delivery O2 Flow Rate FiO2 05/28/17 08:16 100 35 05/28/17 06:00 62 05/28/17 04:00 98.5 15 127/60 (82) 05/27/17 07:00 Bi-Pap 05/26/17 09:30 6.00 Intake and Output 05/28/17 05/28/17 05/29/17 08:00 16:00 00:00 Intake Total 170 ml Output Total 1110 ml Balance 170 ml -1110 ml Result Diagram: 05/27/17 0447 05/27/17 0447 Imaging Last Impressions Head CT 05/22/17 0000 Signed Impressions: Service Date/Time: Monday, May 22, 2017 12:22 - CONCLUSION: Negative for acute process Kian Adkins MD FACR Chest X-Ray 05/22/17 0000 Signed Impressions: Service Date/Time: Monday, May 22, 2017 17:03 - CONCLUSION: 1. Left IJ central line in the SVC junction without pneumothorax. 2. Patchy airspace disease in the left mid to lower lung zones. Hunter Daniel MD Abdomen X-Ray 05/22/17 0000 Signed Impressions: Service Date/Time: Monday, May 22, 2017 10:27 - CONCLUSION: No evidence of obstruction. Nasogastric tube across the GE junction. No free air. Kian Adkins MD FACR Chest CT 05/21/17 0000 Signed Impressions: Service Date/Time: May 16:29 - CONCLUSION: 1. Complete collapse of the left lung appears to be due to extensive debris within the left mainstem bronchus extending peripherally. Bronchoscopy is recommended for further evaluation and possible treatment. 2. The esophagus appears to impinge on the posterior wall of the trachea and may partially obscure the lumen in the upper thorax. 3. No obvious hilar mass lesion although anatomic detail is limited due to the adjacent collapsed lung. This area can be reevaluated after clearing of the left mainstem bronchus and reexpansion of the left lung. 4. Pleural-parenchymal atelectasis or scarring posteriorly in the superior segment of the right lower lobe. Right lung is otherwise clear. 5. Atherosclerotic calcification of the coronary arteries. Calcification of the mitral valve annulus Gelacio Allen MD Objective Remarks GENERAL: Patient is 82 yo lying in bed on VM. On BiPAP 15/5 60% Fio2 SKIN: Warm and dry. HEAD: Normocephalic. EYES: No scleral icterus. No injection or drainage. NECK: Supple, trachea midline. No JVD or lymphadenopathy. CARDIOVASCULAR: Regular rate and rhythm without murmurs, gallops, or rubs. RESPIRATORY: Breath sounds equal bilaterally, but diminished at the bases. Tachypneic using some accessory muscle use. GASTROINTESTINAL: Abdomen soft, non-tender, nondistended. MUSCULOSKELETAL: No cyanosis, or edema. NEURO: Motor grossly somnolent, unable to follow commands. Airway protection is questionable. Moving extremities A/P Assessment and Plan Assessment: Acute hypoxemic respiratory failure extubated 05/23, re intubated 05/27/17 Delirium/metabolic encephalopathy Embolic stroke bilateral occipital lobes, left cerebellar Possible sepsis s/p opacification of left lung due to mucous plugs-improved post bronch ESRD on peritoneal dialysis. History of hypertension. CAD, s/p CALLIE to RCA in Feb COPD History of sleep apnea on CPAP at home History of cerebrovascular accident. Plan: Neuro: MRI brain shows Embolic stroke bilateral occipital lobes, left cerebellar. MRA brain and neck pending EEG shows encephalopathy no seizures CT brain 05/22- no acute process Pulm: Intubated and placed on mechanical ventilation 05/27 for lack of airway protection and hypoxia Anterior airway with DL Grade 3 view Bronchodilators ( DuoNeb). Hydrocortisone 50mg Q12. Inhaled budesonide s/p bronchoscopy 05/28/2017 large amount of thick mucoid secretions removed from bilateral lower lobe segmental bronchi s/p bronch 05/22 - thick mucoid secretions on left suctioned to clear. Follow up on BAL results Pulm is following- Dr. Hogue Hold Symbicort Spiriva while intubated CV: Monitor HR and BP and maintain MAP> 65 mmHg. Echo in February showed EF of 55-60% with no regional wall motion abnormalities. Repeat echo ordered due to embolic stroke Continue with aspirin, Plavix, Lipitor. : Monitor renal function. I's and O's and avoid nephrotoxins. Nephrology- Dr. Salcedo, on peritoneal dialysis. May need to change to HD On Lasix 40mg daily IV, placed on hold GI: On Pepcid 10 mg IV q. 12 hours for GI prophylaxis. Speech eval, diet per speech ID: Continue Zosyn and vancomycin F/u blood and peritoneal fluid cultures-negative to date Monitor for signs of infections( fever and WBC). Follow up on BAL cx 05/28 Endo: SSI with Accu-Chek for glycemic control. Heme: Monitor CBC. GI prophylaxis with Pepcid, DVT prophylaxis with SCDs/ heparin sub-Q. Lines: Left IJ CVP placed 05/22 CCT 35 MIN excluding procedures Patient is critically ill with new embolic strokes delirium and now with aspiration. Intubated and placed on mechanical ventilation. Discussed with nephrology Dr. Salcedo. Prior to intubation I called and discussed with Mrs. regalado. She requested full CODE STATUS with continued aggressive care. Palliative care consulted to address goals of care-patient overall declining over the last several months. Also explained to me that patient never had documented sz, but due to stroke in March and question of Alfonzo's palsy patient was placed on Santiago Santiago MD May 28, 2017 10:35
--- NOTE | 2017-05-28 11:14 | RADRPT ---
EXAM DATE/TIME: 05/28/2017 10:47 [facility] COMPARISON: CHEST SINGLE AP, May 27, 2017, 8:04. INDICATIONS : Evaluate for respiratory disease. MEDICAL HISTORY : Hypertension. Chronic obstructive pulmonary disease. SURGICAL HISTORY : Tonsillectomy. ENCOUNTER: Subsequent ACUITY: 1 week PAIN SCORE: Non-responsive. LOCATION: Bilateral chest FINDINGS: A single view of the chest demonstrates bibasilar densities. Endotracheal tube 4 cm above the queenie. Nasogastric tube with tip in stomach. Left jugular central line stable. The cardiomediastinal conto urs are unremarkable. Osseous structures are intact. CONCLUSION: 1. Bibasilar opacities. Marcus Shultz MD on May 28, 2017 at 11:11 Board Certified Radiologist. This report was verified electronically.
[2017-05-28] MEDS: RESP: ACETYLCYSTEINE 20% 30 ML NEB NEB SCH ×3 (11:16→20:54)
--- NOTE | 2017-05-28 12:53 | RADRPT ---
EXAM DATE/TIME: 05/28/2017 12:13 [facility] COMPARISON: No previous studies available for comparison. INDICATIONS : Decreased level of consciousness. MEDICAL HISTORY : Hypertension. Chronic obstructive pulmonary disease. Afib SURGICAL HISTORY : Tonsillectomy. ENCOUNTER: Subsequent ACUITY: 1 week PAIN SCORE: Nonresponsive. LOCATION: cranial Please note a normal MRA of the brain does not entirely exclude the possibility of a small aneurysm, nor the possibility of distal intracranial vessel disease. TECHNIQUE: 3D time of flight MRA was performed. Source images, multiplanar STS MIP, and 3D volume MIP reconstru ctions were reviewed. FINDINGS: Anterior circulation: Distal intracranial internal carotid arteries are patent with flow extending to the middle and anteri or cerebral arteries. There is no evidence for aneurysm, vessel truncation or stenosis, and no eviden ce for vascular malformation. Posterior circulation: Symmetric distal vertebral arteries with flow extending to basilar artery. The right P-comm. There is no evidence for aneurysm, vessel truncation or stenosis, and no evidence for vascular malformation. CONCLUSION: 1. Unremarkable [place] MRA examination. Specifically, no evidence for large vessel occlusio n or significant aneurysm. Hunter Daniel MD on May 28, 2017 at 12:50 Board Certified Radiologist. This report was verified electronically.
--- NOTE | 2017-05-28 13:19 | RADRPT ---
EXAM DATE/TIME: 05/28/2017 12:13 [facility] COMPARISON: MRI BRAIN W/O CONTRAST, May 27, 2017, 11:45. INDICATIONS : Decreased level to consciousness. MEDICAL HISTORY : Hypertension. Chronic obstructive pulmonary disease. Afib SURGICAL HISTORY : Tonsillectomy. ENCOUNTER: Subsequent ACUITY: 1 week PAIN SCORE: Nonresponsive. LOCATION: cranial Percent stenosis is calculated using the diameter of the stenotic region over the diameter of the nor mal distal internal carotid artery. TECHNIQUE: 3D time of flight MRA of the extracranial circulation was performed using a neurovascular coil. Post processing was performed including rotating subvolume maximum intensity projections of each carotid artery, rotating full-volume maximum intensity projections of both carotid arteries, sagittal and cor onal sliding thin-slab reformations of each carotid artery, and left oblique sliding thin slab reform ation through the aortic arch to include the origin of the arch branch vessels. FINDINGS: Exam is moderately degraded by motion. AORTIC ARCH: There is a three vessel origin of the great vessels from the aorta. No evidence of ostial narrowing. RIGHT CAROTID: The common carotid artery is intact. The carotid bulb has a normal configuration without ulceration or narrowing. Portions of the internal carotid artery are suboptimally visualized. The internal foley tid artery lumen is otherwise smooth without stenosis. The external carotid artery is intact. LEFT CAROTID: The common carotid artery is intact. The carotid bulb has a normal configuration without ulceration or narrowing. of the internal carotid artery are suboptimally visualized. The internal carotid arter y lumen is otherwise smooth without stenosis. The external carotid artery is intact. VERTEBRALS: The vertebral arteries have a symmetric diameter. The distal vertebral arteries are not visualized. Visualized portions are patent without evidence for stenosis or occlusion. Vertebrobasilar junction a re patent. CONCLUSION: 1. Moderately limited examination due to motion degradation. 2. No significant flow-limiting stenosis demonstrated although portions of the internal carotid arter ies and distal vertebral arteries are not sufficiently evaluated. Hunter Daniel MD on May 28, 2017 at 13:01 Board Certified Radiologist. This report was verified electronically.
[2017-05-28] MEDS ORDERED: LACTULOSE SYRUP 20 GM/30 ML CUP PO PRN (14:15)
[2017-05-28] MEDS: AZITHROMYCIN 250 MG TAB PO SCH (15:58)
--- NOTE | 2017-05-28 16:37 | HHI.HCPN ---
Reason for visit a. To assist with evaluation and management of symptoms including: Encephalopathy, dyspnea, debility b. To assist medical decision maker(s) with: better understanding of current medical conditions; weighing benefits/burdens of medical treatment options; making medical treatment decisions. . Subjective/Interval History Follow-up visit to reassess for symptom management of encephalopathy, debility and dyspnea. Patient seen and assessed in [facility], room 509. No family present at the time of exam. Patient remains sedated and intubated on mechanical ventilation. FiO2 35 %, rate 15, PEEP 8. Bronchoscopy performed today for bilateral lower lobe atelectasis. Moderate amount of thick secretions removed; cultures pending. Neurology, Dr. 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 MRA brain showed no evidence of large vessel occlusion or significant aneurysm; MRA neck revealed no significant flow-limiting stenosis although portions of the internal carotid arteries and distal vertebral arteries are not sufficiently evaluated. Patient remains on Plavix and ASA at this time pending further recommendations. Cardiology consult pending. . Family/friend interactions Palliative care received a phone call from patient's son, Buster. Update provided on patient's clinical condition. Buster is currently traveling home from [place]. ETA tomorrow afternoon 05/29/2017 in [place], [place] around 2 PM. Both of patient's children will likely arrive in [place] on Thursday/2017. Advance Directives Living Will: Copy in medical record Health Care Surrogate: Copy in medical record Advance Directive Specifics Date completed: 04/07/2017?? . Health Care Surrogate(s): HCS form completed 04/07 without year included names patient's (Jolynn) as the healthcare decision-maker. Per [place] statutes, in the absence of written advanced directives healthcare proxy decision making would fall to the patient' s . . Documented care wishes: Patient completed a living will on 04/07 with no year included. It states if the patient were to be diagnosed with a terminal condition, ES condition or be in a persistent vegetative states with no reasonable chance of recovery he would would want life prolonging procedures withheld or withdrawn and be allowed to pass peacefully and naturally with only interventions or procedures that would provide comfort. However, patient's states that this is not what patient would want. She does not think the patient understood what he was "saying" when he signed the document. . Objective Vital Signs Date Time Temp Pulse Resp B/P (MAP) Pulse Ox O2 Delivery O2 Flow Rate FiO2 05/28/17 15:45 100 35 05/28/17 12:00 97.6 54 17 100 05/28/17 12:00 35 05/28/17 12:00 54 05/28/17 12:00 100 50 05/28/17 11:17 99 35 05/28/17 10:00 63 05/28/17 09:30 100 100 05/28/17 08:16 100 35 05/28/17 08:00 98.3 55 16 147/67 (93) 100 05/28/17 08:00 35 05/28/17 08:00 55 05/28/17 07:00 98 Mechanical Ventilator 35 05/28/17 06:00 62 05/28/17 04:20 100 35 05/28/17 04:00 98.5 54 15 127/60 (82) 100 05/28/17 04:00 35 05/28/17 04:00 54 05/28/17 02:00 55 05/28/17 00:42 100 35 05/28/17 00:00 68 05/28/17 00:00 98.7 68 20 112/65 (81) 100 05/28/17 00:00 35 05/27/17 22:00 56 05/27/17 20:10 100 35 05/27/17 20:00 35 05/27/17 20:00 98.4 53 15 105/55 (72) 100 05/27/17 20:00 53 05/27/17 18:00 59 05/27/17 17:19 100 35 Intake & Output 05/28/17 05/28/17 07:00 19:00 Intake Total 170 ml 50 ml Output Total 1110 ml Balance 170 ml -1060 ml IV Total 50 ml 50 ml Other 120 ml Peritoneal Fluid 1110 ml # Voids 0 # Bowel Movements 1 . Physical Exam CONSTITUTIONAL/GENERAL: This is an elderly male patient currently intubated on mechanical ventilation TUBES/LINES/DRAINS: PIV, CVL, urinary catheter, ETT, OGT SKIN: No jaundice, rashes, or lesions. Ecchymoses on upper extremities. No wounds seen anteriorly. Skin temperature appropriate. Not diaphoretic. HEAD: Atraumatic. Normocephalic. EYES: Pupils equal and round and reactive. Extraocular motions intact. No scleral icterus. No injection or drainage. Fundi not examined. ENT: Nose without bleeding or purulent drainage. Oral mucosa dry NECK: Trachea midline. Supple, nontender. No palpable thyroid enlargement or nodularity. CARDIOVASCULAR: Regular rate and rhythm without murmurs, gallops, or rubs. No JVD. Peripheral pulses symmetric. RESPIRATORY/CHEST: Intubated on mechanical ventilator. Breath sounds equal bilaterally. Coarse air exchange. GASTROINTESTINAL: Abdomen soft, non-tender, nondistended. No hepato-splenomegaly , or palpable masses. No guarding. Bowel sounds present. GENITOURINARY: Without palpable bladder distension. MUSCULOSKELETAL: Extremities without clubbing, cyanosis, or edema. No mottling or clubbing. Muscle atrophy and nonhealing wounds are noted to lower extremities bilaterally. LYMPHATICS: No palpable cervical or supraclavicular adenopathy. NEUROLOGICAL: Encephalopathic, airway protection is questionable. PSYCHIATRIC: Sedated. No obvious anxiety/depression. No apparent hallucinations or other psychotic thought process. . Diagnostic Tests Laboratory Laboratory Tests Test 05/25/17 20:19 05/26/17 04:20 05/26/17 18:00 05/27/17 04:47 Blood Gas Puncture Site RT RADIAL RT RADIAL Blood Gas Patient Temperature 98.6 98.6 Blood Gas HCO3 23 mmol/L (22-26) 24 mmol/L (22-26) Blood Gas Base Excess -1.5 mmol/L (-2-2) -0.2 mmol/L (-2-2) Blood Gas Oxygen Saturation 94 % (90-100) 96 % (90-100) Arterial Blood pH 7.37 (7.380-7.420) 7.41 (7.380-7.420) Arterial Blood Partial Pressure CO2 41 mmHg (38-42) 39 mmHg (38-42) Arterial Blood Partial Pressure O2 90 mmHg (61-120) 106 mmHg (61-120) Arterial Blood Oxygen Content 13.8 Vol % (12.0-20.0) 13.8 Vol % (12.0-20.0) Arterial Blood Carboxyhemoglobin 0.7 % (0-4) 0.8 % (0-4) Arterial Blood Methemoglobin 1.1 % (0-2) 1.1 % (0-2) Blood Gas Hemoglobin 10.4 G/DL (12.0-16.0) 10.1 G/DL (12.0-16.0) Oxygen Delivery Device PRB BiPAP Blood Gas Liter Flow 15 L/M White Blood Count 9.7 TH/MM3 (4.0-11.0) 10.8 TH/MM3 (4.0-11.0) Red Blood Count 3.42 MIL/MM3 (4.50-5.90) 3.35 MIL/MM3 (4.50-5.90) Hemoglobin 10.6 GM/DL (13.0-17.0) 10.4 GM/DL (13.0-17.0) Hematocrit 31.4 % (39.0-51.0) 30.9 % (39.0-51.0) Mean Corpuscular Volume 91.6 FL (80.0-100.0) 92.3 FL (80.0-100.0) Mean Corpuscular Hemoglobin 31.0 PG (27.0-34.0) 31.2 PG (27.0-34.0) Mean Corpuscular Hemoglobin Concent 33.9 % (32.0-36.0) 33.8 % (32.0-36.0) Red Cell Distribution Width 15.3 % (11.6-17.2) 15.3 % (11.6-17.2) Platelet Count 166 TH/MM3 (150-450) 189 TH/MM3 (150-450) Mean Platelet Volume 8.4 FL (7.0-11.0) 8.3 FL (7.0-11.0) Neutrophils (%) (Auto) 81.1 % (16.0-70.0) 80.4 % (16.0-70.0) Lymphocytes (%) (Auto) 8.8 % (9.0-44.0) 9.2 % (9.0-44.0) Monocytes (%) (Auto) 9.5 % (0.0-8.0) 9.0 % (0.0-8.0) Eosinophils (%) (Auto) 0.4 % (0.0-4.0) 1.1 % (0.0-4.0) Basophils (%) (Auto) 0.2 % (0.0-2.0) 0.3 % (0.0-2.0) Neutrophils # (Auto) 7.8 TH/MM3 (1.8-7.7) 8.7 TH/MM3 (1.8-7.7) Lymphocytes # (Auto) 0.8 TH/MM3 (1.0-4.8) 1.0 TH/MM3 (1.0-4.8) Monocytes # (Auto) 0.9 TH/MM3 (0-0.9) 1.0 TH/MM3 (0-0.9) Eosinophils # (Auto) 0.0 TH/MM3 (0-0.4) 0.1 TH/MM3 (0-0.4) Basophils # (Auto) 0.0 TH/MM3 (0-0.2) 0.0 TH/MM3 (0-0.2) CBC Comment DIFF FINAL DIFF FINAL Differential Comment Activated Partial Thromboplast Time 34.8 SEC (24.3-30.1) Blood Urea Nitrogen 60 MG/DL (7-18) 59 MG/DL (7-18) Creatinine 8.32 MG/DL (0.60-1.30) 8.76 MG/DL (0.60-1.30) Random Glucose 82 MG/DL (74-106) 97 MG/DL (74-106) Total Protein 6.4 GM/DL (6.4-8.2) 6.5 GM/DL (6.4-8.2) Albumin 2.4 GM/DL (3.4-5.0) 2.7 GM/DL (3.4-5.0) Calcium Level 9.2 MG/DL (8.5-10.1) 9.7 MG/DL (8.5-10.1) Phosphorus Level 4.2 MG/DL (2.5-4.9) Magnesium Level 1.7 MG/DL (1.5-2.5) Alkaline Phosphatase 46 U/L (45-117) 48 U/L (45-117) Aspartate Amino Transf (AST/SGOT) 28 U/L (15-37) 26 U/L (15-37) Alanine Aminotransferase (ALT/SGPT) 21 U/L (12-78) 18 U/L (12-78) Total Bilirubin 0.4 MG/DL (0.2-1.0) 0.5 MG/DL (0.2-1.0) Sodium Level 141 MEQ/L (136-145) 141 MEQ/L (136-145) Potassium Level 3.5 MEQ/L (3.5-5.1) 3.5 MEQ/L (3.5-5.1) Chloride Level 103 MEQ/L (98-107) 104 MEQ/L (98-107) Carbon Dioxide Level 27.6 MEQ/L (21.0-32.0) 26.2 MEQ/L (21.0-32.0) Anion Gap 10 MEQ/L (5-15) 11 MEQ/L (5-15) Estimat Glomerular Filtration Rate 6 ML/MIN (>89) 6 ML/MIN (>89) Lactic Acid Level 3.3 mmol/L (0.4-2.0) Ammonia 16 MCMOL/L (11-32) Amylase Level 79 U/L (25-115) Lipase 193 U/L (73-393) Thyroid Stimulating Hormone 3rd Gen 2.430 uIU/ML (0.358-3.740) Blood Gas Ventilator Setting [id number] Blood Gas Inspired Oxygen 90 % Test 05/27/17 10:16 05/28/17 06:28 05/28/17 10:32 Blood Gas Puncture Site RT RADIAL Blood Gas Patient Temperature 98.6 Blood Gas HCO3 24 mmol/L (22-26) Blood Gas Base Excess -0.4 mmol/L (-2-2) Blood Gas Oxygen Saturation 96 % (90-100) Arterial Blood pH 7.40 (7.380-7.420) Arterial Blood Partial Pressure CO2 40 mmHg (38-42) Arterial Blood Partial Pressure O2 110 mmHg (61-120) Arterial Blood Oxygen Content 13.6 Vol % (12.0-20.0) Arterial Blood Carboxyhemoglobin 0.7 % (0-4) Arterial Blood Methemoglobin 1.2 % (0-2) Blood Gas Hemoglobin 10.0 G/DL (12.0-16.0) Oxygen Delivery Device VENTILATOR Blood Gas Ventilator Setting Blood Gas Inspired Oxygen 60 % Random Vancomycin Level 15.1 COMMENT Bronchoalveolar Lavage WBC 130 /MM3 Bronchoalveolar Lavage RBC 6175 /MM3 Bronchoalveolar Lavage Neutrophils 87 % Bronchoalveolar Lavage Lymphocytes 13 % Lavage Fluid Total Volume 2.0 ML Lavage Fluid Total WBC Count 0.260 MILLION (4.700-7.100) . Result Diagram: 05/27/17 0447 05/27/17 0447 Microbiology Microbiology Date/Time Source Procedure Growth Status 05/26/17 10:20 Blood Peripheral Aerobic Blood Culture - Preliminary NO GROWTH IN 2 DAYS Resulted 05/26/17 10:20 Blood Peripheral Anaerobic Blood Culture - Preliminary NO GROWTH IN 2 DAYS Resulted 05/26/17 10:15 Blood Peripheral Aerobic Blood Culture - Preliminary NO GROWTH IN 2 DAYS Resulted 05/26/17 10:15 Blood Peripheral Anaerobic Blood Culture - Preliminary NO GROWTH IN 2 DAYS Resulted 05/26/17 09:00 Fluid Peritoneal Fluid Gram Stain - Final Resulted 05/26/17 09:00 Fluid Peritoneal Fluid Body Fluid Culture - Preliminary NO GROWTH IN 48 HOURS. Resulted 05/28/17 10:32 Bronchial Washings Right Lower Lobe Fungal Smear - Final NO FUNGAL ELEMENTS SEEN. Resulted 05/28/17 10:32 Bronchial Washings Right Lower Lobe Fungal Culture Pending Resulted 05/28/17 10:32 Bronchial Washings Left Lower Lobe Fungal Smear - Final NO FUNGAL ELEMENTS SEEN. Resulted 05/28/17 10:32 Bronchial Washings Left Lower Lobe Fungal Culture Pending Resulted 05/28/17 10:32 Bronchial Washings Right Lower Lobe Acid Fast Stain Pending Received 05/28/17 10:32 Bronchial Washings Right Lower Lobe Mycobacterial Culture Pending Received 05/28/17 10:32 Bronchial Washings Left Lower Lobe Acid Fast Stain Pending Received 05/28/17 10:32 Bronchial Washings Left Lower Lobe Mycobacterial Culture Pending Received 05/28/17 10:32 Bronchial Washings Right Lower Lobe Gram Stain - Final Resulted 05/28/17 10:32 Bronchial Washings Right Lower Lobe Bronchial Culture Pending Resulted 05/28/17 10:32 Bronchial Washings Left Lower Lobe Gram Stain - Final Resulted 05/28/17 10:32 Bronchial Washings Left Lower Lobe Bronchial Culture Pending Resulted 05/27/17 11:18 Sputum Endotracheal Gram Stain - Final Resulted 05/27/17 11:18 Sputum Endotracheal Sputum Culture - Preliminary RARE GROWTH NORMAL RESPIRATORY JAKE ... Resulted . Imaging Last 72 hours Impressions Neck Magnetic Resonance Angiography 05/28/17 0000 Signed Impressions: Service Date/Time: May 12:13 - CONCLUSION: 1. Moderately limited examination due to motion degradation. 2. No significant flow-limiting stenosis demonstrated although portions of the internal carotid arteries and distal vertebral arteries are not sufficiently evaluated. Hunter Daniel MD Head Magnetic Resonance Angiography 05/28/17 0000 Signed Impressions: Service Date/Time: May 12:13 - CONCLUSION: 1. Unremarkable [place] MRA examination. Specifically, no evidence for large vessel occlusion or significant aneurysm. Hunter Daniel MD Chest X-Ray 05/28/17 0000 Signed Impressions: Service Date/Time: May 10:47 - CONCLUSION: 1. Bibasilar opacities. Marcus Shultz MD Chest X-Ray 05/27/17 0000 Signed Impressions: Service Date/Time: Saturday, May 27, 2017 08:04 - CONCLUSION: 1. No significant 24-hour interval change. 2. Stable bilateral lower lung zone airspace disease, left greater than right, with probable small left pleural effusion. Hunter Daniel MD Chest CT 05/27/17 0000 Signed Impressions: Service Date/Time: Saturday, May 27, 2017 12:16 - CONCLUSION: 1. There is normal aeration of the left upper lobe. However, there is abnormal material within the left lower lobe bronchus with collapse of the left lower lobe. 2. There is a new right lower lobe airspace consolidation and new small left pleural effusion. 3. There is new small volume of free fluid in the upper abdomen. 4. 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 Joe Curry MD Brain MRI 05/27/17 0000 Signed Impressions: Service Date/Time: Saturday, May 27, 2017 11:45 - CONCLUSION: Marked central and cortical atrophy with periventricular white matter changes Minimal focal areas of restricted diffusion in both occipital lobes and left cerebellar hemisphere Suspicious for embolic ischemic event. Kian Adkins MD FACR Chest X-Ray 05/26/17 0000 Signed Impressions: Service Date/Time: Friday, May 26, 2017 19:40 - CONCLUSION: Left basilar density and probable small effusion. Marcus Shultz MD Chest X-Ray 05/26/17 0000 Signed Impressions: Service Date/Time: Friday, May 26, 2017 06:26 - CONCLUSION: Stable exam. Danielle Cabello MD . Procedures 05/22/2017: Left IJ CVL placed 05/22/2017: Intubation 05/23/2017: Extubation 05/27/2017: Reintubation . Assessment and Plan Disease Oriented Problem List: (1) Troponin level elevated (2) Elevated CK (3) Elevated brain natriuretic peptide (BNP) level (4) Hyperlipidemia (5) Hypertension (6) NSTEMI (non-ST elevated myocardial infarction) (7) Peritoneal dialysis catheter dysfunction (8) Acute on chronic kidney failure (9) COPD (chronic obstructive pulmonary disease) (10) CHF (congestive heart failure) (11) Seizures (12) Lacunar infarct, acute (13) C. difficile colitis (14) Bronchial obstruction (15) Anemia (16) Pneumonia Symptom Scale: (1) Encephalopathy 0-10 Scale: Unable to quantify (2) Dyspnea 0-10 Scale: Unable to quantify (3) Debility 0-10 Scale: Unable to quantify Pertinent Non-Medical Issues Psychosocial:Patient is originally from the [place]. He is an only child. His mother during childbirth and his father at the age of 50 from an NH. He has been to his for approximately 57 years. They moved to [place] 44 years ago. They have 2 adult children, 1 daughter and 1 son. 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 Spiritual: Hoahaoism pauline Legal:Decision making: HCS form completed 04/07 without year included names patient's (Jolynn) as the healthcare decision-maker. Per [place] statutes, in the absence of written advanced directives healthcare proxy decision making would fall to the patient's . Ethical issues impacting care: No known ethical issues impacting care at this time. . Important Contacts Jolynn Mcgovern, spouse: [phone] . Prognosis Patient is an 82-year-old male with multiple comorbidities who has exhibited an acute decline over the past 6 months. Patient is currently requiring ventilator support secondary to respiratory failure and cognitive deficits. MRI on 2017 suspicious for embolic ischemic events. Patient is high risk for ongoing decline and complications. . Code Status: Full Code Plan * FULL CODE * Decision making: HCS form completed 04/07 without year included names patient' s (Jolynn) as the healthcare decision-maker. Per [place] statutes, in the absence of written advanced directives healthcare proxy decision making would fall to the patient's . * Patient completed a living will on 04/07 with no year included. It states if the patient were to be diagnosed with a terminal condition, ES condition or be in a persistent vegetative states with no reasonable chance of recovery he would would want life prolonging procedures withheld or withdrawn and be allowed to pass peacefully and naturally with only interventions or procedures that would provide comfort. However, patient's states that this is not what patient would want. She does not think the patient understood what he was "saying" when he signed the document. * Goals: Patient's would like to give the patient a few days to see if he shows any neurological improvement. Earlier today the patient's stated her would want everything done to be kept alive, after further discussions this afternoon she indicates the patient may not want "everything done" if he would have ongoing cognitive impairments. Until that time, patient' s requests that the patient remade a FULL CODE. * Discussed patient/family's current medical treatment goals with bedside nurse (Jeannette) and trauma registrar (Dr. Diaz). * Palliative care received a phone call from patient's son, Buster. Update provided on patient's clinical condition. Buster is currently traveling home from [place]. ETA tomorrow afternoon 05/29/2017 in [place], [place] around 2 PM. Both of patient's children will likely arrive in [place] on Thursday/2017. * Symptom management: == Dyspnea: Patient presented to ED for evaluation of shortness of breath and hypoxemic episode. Status post intubation and bronchoscopy on 05/27/2017 secondary to respiratory distress and questionable airway protection. Bronchoscopy performed today for bilateral lower lobe atelectasis. Moderate amount of thick secretions removed; cultures pending. Continue to monitor; will initiate spontaneous breathing trials when/if patient stabilizes. == Debility: Patient has experienced an acute decline in the past several months secondary to recent stroke with associated seizures and NSTEMI in 2017. Patient received 4 weeks of rehab at [facility] for rehabilitation; he was then transferred to a custodial facility for additional therapy. Upon discharge [facility] on 05/05/17, the patient was total assist for mobility and ADLs; he was tolerating a regular consistency diet with thin liquids although he did require assistance and supervision during mealtimes. Patient remains significantly debilitated and will likely never return to his previous functioning level. == Encephalopathy: Patient having progressively increased encephalopathy, possibly multifactorial. EEG was suggestive of moderately severe, diffuse disturbance of cerebral function, probably metabolic in nature. Neurology, Dr. 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 MRA brain showed no evidence of large vessel occlusion or significant aneurysm; MRA neck revealed no significant flow-limiting stenosis although portions of the internal carotid arteries and distal vertebral arteries are not sufficiently evaluated. Patient remains on Plavix and ASA at this time pending further recommendations. * Palliative care will continue to follow this patient throughout his hospitalization to establish trust, assist with symptom management and clarification of medical treatment goals. . Attestation To help prompt me to consider important information that might be impacting today's encounter and assessment, information from prior notes written by myself or my colleagues may have been "brought forward" into today's note. My signature on this note, however, is an attestation that I personally performed the exam, history, and/or decision-making noted today, and, unless otherwise indicated, the interactions with patient, family, and staff as well as the review of records all occurred today. I also attest that the listed assessment and stated plan reflect my best clinical judgment today based on the combination of historical information, prior notes, and today's exam/ interactions. When time spent is documented, it refers only to time spent today by the signer, or if indicated, combined time spent today by collaborating physician/nurse practitioner. . Dayna Henson May 28, 2017 4:37 pm
[2017-05-28] MEDS: PROPOFOL 1000 MG/100 ML INJ 100 ML IV PRN (17:04)
--- NOTE | 2017-05-28 18:23 | HHI.PR ---
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 Plan start iv heparin and stop plavix, continue asa ROBERT scheduled for tomorrow Diagnosis/Plan: Subjective Subjective Comments No acute events reported Active Medications Current Medications Medications (Trade) Dose Ordered Sig/Corinna Route Start Time Stop Time Status Last Admin (NS Flush) 2 ml UNSCH PRN IV FLUSH 05/21/17 16:30 05/21/17 17:03 (NS Flush) 2 ml BID IV FLUSH 05/21/17 21:00 05/28/17 08:15 (Narcan Inj) 0.4 mg UNSCH PRN IV PUSH 05/21/17 16:30 (Duoneb Neb) 1 ampule Q4HR NEB PRN NEB 05/21/17 16:30 05/24/17 00:53 (Zithromax) 500 mg Q24H PO 05/22/17 17:00 05/28/17 15:58 (Tessalon) 100 mg TID PRN PO 05/21/17 18:00 05/22/17 04:17 (Ecotrin Ec) 81 mg DAILY PO 05/22/17 09:00 05/28/17 08:14 (Lipitor) 80 mg HS PO 05/21/17 21:00 05/27/17 20:20 (Rocaltrol) 0.25 mcg DAILY PO 05/22/17 09:00 05/28/17 08:14 (CeleXA) 20 mg DAILY PO 05/22/17 09:00 Future Hold 05/25/17 08:42 (Plavix) 75 mg DAILY PO 05/22/17 09:00 05/28/17 08:15 (Neurontin) 100 mg BID PO 05/21/17 21:00 Future Hold 05/25/17 20:29 (Apresoline) 10 mg Q8HR PO 05/21/17 22:00 Future Hold 05/25/17 06:00 (Imdur) 30 mg DAILY PO 05/22/17 09:00 Future Hold (Lactinex) 1 tab TID PO 05/22/17 09:00 05/28/17 17:04 (Keppra) 250 mg HS PO 05/21/17 21:00 05/27/17 20:20 (Keppra) 500 mg DAILY PO 05/22/17 09:00 05/28/17 08:14 (NS Inj) 10 ml WITH DIALYSIS PRN IV FLUSH 05/21/17 19:00 (Heparin Inj) Add 1000 units of Hepa... WITH DIALYSIS PRN IV FLUSH 05/21/17 19:00 Miscellaneous Information Patient in critical care unit? Ass... Q361D .XX 05/22/17 06:30 05/22/17 19:00 (Brethine Inj) 1 mg UNSCH PRN SQ 05/22/17 07:00 (D50w (Vial) Inj) 50 ml UNSCH PRN IV PUSH 05/22/17 07:00 (Glucagon Inj) 1 mg UNSCH PRN OTHER 05/22/17 07:00 (NovoLIN R SUPPLEMENTAL SCALE) 1 Q4H SQ 05/22/17 08:00 05/25/17 00:42 (Heparin Inj) 5,000 units Q12H SQ 05/22/17 17:00 05/28/17 16:00 (Heparin Inj) 1,000 units WITH DIALYSIS PRN XX 05/22/17 09:00 (NS Flush) 10 ml UNSCH PRN IV FLUSH 05/22/17 09:00 (Phoslo) 667 mg TID NG 05/22/17 09:00 05/28/17 17:04 (Lasix Inj) 40 mg DAILY IV PUSH 05/23/17 09:00 Future Hold 05/25/17 08:42 (SoluCORTEF INJ) 50 mg Q12H IV PUSH 05/24/17 16:00 05/28/17 15:56 (Robitussin Liq) 600 mg BID PO 05/24/17 12:00 05/28/17 08:14 (Colace) 100 mg BID PO 05/24/17 21:00 05/28/17 08:15 (Senna Liq) 8.8 mg DAILY PO 05/24/17 18:00 05/28/17 08:14 (KCl) 20 meq DAILY PO 05/25/17 09:00 05/28/17 08:14 (Spiriva Inh) 18 mcg DAILY INH 05/25/17 16:00 (Symbicort 160-4.5 Mcg Inh) 1 puff Q12HR INH 05/25/17 21:00 05/26/17 20:53 (Duoneb Neb) 1 ampule Q4HR NEB NEB 05/25/17 16:00 05/28/17 15:13 (Haldol Inj) 2 mg Q6H PRN IV 05/25/17 16:15 Norepinephrine Bitartrate 250 ml @ 7.5 mls/hr TITRATE PRN IV 05/26/17 06:30 Piperacillin Sod/ Tazobactam Sod 50 ml @ 100 mls/hr Q8H IV 05/26/17 10:00 05/28/17 17:05 (Peridex 0.12% Liq) 15 ml BID@08,20 MT 05/27/17 20:00 05/28/17 08:15 Propofol 100 ml @ 2.19 mls/hr TITRATE PRN IV 05/27/17 09:15 05/28/17 17:04 (Mucomyst 20% Neb) 2 ml Q6HR NEB NEB 05/28/17 10:30 05/28/17 15:14 (Lactulose Liq) 30 ml QID PRN PO 05/28/17 14:15 Allergies Allergies Coded Allergies No Known Allergies (Unverified Allergy, Unknown, 05/21/17) Exam I&O / VS 05/28/17 05/28/17 05/29/17 15:00 23:00 07:00 Intake Total 50 ml 50 ml Output Total 1110 ml Balance -1060 ml 50 ml IV Total 50 ml 50 ml Peritoneal Fluid 1110 ml Vital Signs Date Time Temp Pulse Resp B/P (MAP) Pulse Ox O2 Delivery O2 Flow Rate FiO2 05/28/17 18:00 58 05/28/17 16:00 57 05/28/17 16:00 97.7 57 17 101/55 (70) 100 05/28/17 16:00 35 05/28/17 15:45 100 35 05/28/17 14:00 54 05/28/17 14:00 53 05/28/17 12:00 97.6 54 17 100 05/28/17 12:00 35 05/28/17 12:00 54 05/28/17 12:00 100 50 05/28/17 11:17 99 35 05/28/17 10:00 63 05/28/17 09:30 100 100 05/28/17 08:16 100 35 05/28/17 08:00 98.3 55 16 147/67 (93) 100 05/28/17 08:00 35 05/28/17 08:00 55 05/28/17 07:00 98 Mechanical Ventilator 35 05/28/17 06:00 62 05/28/17 04:20 100 35 05/28/17 04:00 98.5 54 15 127/60 (82) 100 05/28/17 04:00 35 05/28/17 04:00 54 05/28/17 02:00 55 05/28/17 00:42 100 35 05/28/17 00:00 68 05/28/17 00:00 98.7 68 20 112/65 (81) 100 05/28/17 00:00 35 05/27/17 22:00 56 05/27/17 20:10 100 35 05/27/17 20:00 35 05/27/17 20:00 98.4 53 15 105/55 (72) 100 05/27/17 20:00 53 Respiratory: Lungs CTA, Non-labored respirations, BS equal Cardiology: Normal rate, No edema, Regular Rhythm Musculoskeletal: No calf tenderness Exam Comments sedated. 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 Objective Radiology Results MRA brain--no basilar artery stenosis MRA neck--motion artifact, but no gross stenosis Micro and Labs Laboratory Tests Test 05/28/17 06:28 05/28/17 10:32 Random Vancomycin Level 15.1 Bronchoalveolar Lavage WBC 130 Bronchoalveolar Lavage RBC 6175 Bronchoalveolar Lavage Neutrophils 87 Bronchoalveolar Lavage Lymphocytes 13 Lavage Fluid Total Volume 2.0 Lavage Fluid Total WBC Count 0.260 Date/Time Source Procedure Growth Status 05/26/17 10:20 Blood Peripheral Aerobic Blood Culture - Preliminary NO GROWTH IN 2 DAYS Resulted 05/26/17 10:20 Blood Peripheral Anaerobic Blood Culture - Preliminary NO GROWTH IN 2 DAYS Resulted 05/26/17 09:00 Fluid Peritoneal Fluid Gram Stain - Final Resulted 05/26/17 09:00 Fluid Peritoneal Fluid Body Fluid Culture - Preliminary NO GROWTH IN 48 HOURS. Resulted 05/28/17 10:32 Bronchial Washings Right Lower Lobe Fungal Smear - Final NO FUNGAL ELEMENTS SEEN. Resulted 05/28/17 10:32 Bronchial Washings Right Lower Lobe Fungal Culture Pending Resulted Avery Brizuela MD PhD May 28, 2017 18:23
[2017-05-28] MEDS ORDERED: SODIUM CHLORIDE 0.9% FLUSH 10 ML FLUSH IV FLUSH PRN (18:30)
[2017-05-28] MEDS ORDERED: GLUCAGON 1 MG/ML VIAL OTHER PRN (18:30)
[2017-05-28] MEDS ORDERED: HEPARIN-D5W 25,000 U/250 ML 250 ML IV PRN (18:30)
[2017-05-28] MEDS ORDERED: DEXTROSE 50% IN WATER 50 ML VIAL(D50) IV PUSH PRN (18:30)
[2017-05-28] MEDS: ATORVASTATIN 80 MG TAB PO SCH (20:39)
[2017-05-28] MEDS: INSULIN ASPART SUPPLEMENTAL SCALE SQ SCH (20:47)
[2017-05-28 21:56] LABS: HEMATOCRIT 29.1 % (39.0-51.0); HEMOGLOBIN 10.2 GM/DL (13.0-17.0); MEAN CELL VOLUME 90.4 FL (80.0-100.0); MEAN CORPUSCULAR HEMOGLOBIN 31.6 PG (27.0-34.0); MEAN PLATELET VOLUME 8.4 FL (7.0-11.0); PLATELET COUNT 170 TH/MM3 (150-450); RED BLOOD COUNT 3.22 MIL/MM3 (4.50-5.90); RED CELL DISTRIBUTION WIDTH 15.3 % (11.6-17.2); WHITE BLOOD COUNT 8.4 TH/MM3 (4.0-11.0)
[2017-05-28 21:59] LABS: INTERNATIONAL NORMALIZED RATIO 1.2 RATIO; PROTHROMBIN TIME - PATIENT 12.3 SEC (9.8-11.6)
[2017-05-28] MEDS: levETIRAcetam 250 MG TAB PO SCH (23:31)
[2017-05-29] VITALS (25 sets, daily range): BP systolic 101–146; BP diastolic 56–64; PULSE 50–61; RESP 15–26; TEMP 97.6–98.7; O2SAT 100
[2017-05-29] MEDS: RESP: ALBUTEROL 2.5 MG/IPRATROPIUM 0.5 MG NEB (SCH) NEB ×6 (00:18→20:01)
[2017-05-29] MEDS: PIPERACIL-TAZO 2.25 GM PREMIX 50 ML IV SCH ×3 (01:45→17:50)
[2017-05-29] MEDS: PROPOFOL 1000 MG/100 ML INJ 100 ML IV PRN ×2 (02:10→10:54)
[2017-05-29] MEDS: INSULIN NovoLIN REGULAR SUPPLEMENTAL SCALE SQ SCH ×4 (03:54→16:00)
[2017-05-29] MEDS: HYDROCORTISONE SOD SUCCINATE 100 MG VIAL IV PUSH SCH ×2 (03:54→15:41)
[2017-05-29] MEDS: RESP: ACETYLCYSTEINE 20% 30 ML NEB NEB SCH ×3 (04:00→22:00)
[2017-05-29 05:20] LABS: AUTOMATED NEUTROPHIL # 7.6 TH/MM3 (1.8-7.7); BASOPHIL % 0.3 % (0.0-2.0); EOSINOPHIL # 0.1 TH/MM3 (0-0.4); EOSINOPHIL % 0.8 % (0.0-4.0); HEMATOCRIT 30.6 % (39.0-51.0); HEMOGLOBIN 10.4 GM/DL (13.0-17.0); LYMPH % 10.7 % (9.0-44.0); MEAN CELL VOLUME 92.4 FL (80.0-100.0); MEAN CORPUSCULAR HEMOGLOBIN 31.3 PG (27.0-34.0); MEAN CORPUSCULAR HGB CONC 33.8 % (32.0-36.0); MEAN PLATELET VOLUME 8.5 FL (7.0-11.0); MONO % 10.8 % (0.0-8.0); MONOCYTE # 1.1 TH/MM3 (0-0.9); NEUT % 77.4 % (16.0-70.0); PLATELET COUNT 183 TH/MM3 (150-450); RED BLOOD COUNT 3.31 MIL/MM3 (4.50-5.90); RED CELL DISTRIBUTION WIDTH 15.4 % (11.6-17.2); WHITE BLOOD COUNT 9.8 TH/MM3 (4.0-11.0)
[2017-05-29 05:40] LABS: ALBUMIN 2.3 GM/DL (3.4-5.0); ALT (GPT) 18 U/L (12-78); AST (GOT) 22 U/L (15-37); BICARBONATE 24.2 MEQ/L (21.0-32.0); BLOOD UREA NITROGEN 57 MG/DL (7-18); CALCIUM 9.8 MG/DL (8.5-10.1); CHLORIDE 102 MEQ/L (98-107); CHOLESTEROL 88 MG/DL (120-200); CREATININE 8.67 MG/DL (0.60-1.30); GLOMERULAR FILTRATION RATE 6 ML/MIN (>89); GLUCOSE,RANDOM 127 MG/DL (74-106); MAGNESIUM 1.7 MG/DL (1.5-2.5); SODIUM (NA) 140 MEQ/L (136-145); TRIGLYCERIDES 72 MG/DL (42-150)
[2017-05-29 05:43] LABS: ALKALINE PHOSPHATASE 49 U/L (45-117); CHOLESTEROL/ HDL RATIO 1.95 RATIO; HDL CHOLESTEROL 45.1 MG/DL (40.0-60.0); LDL CHOLESTEROL 29 MG/DL (0-99); TOTAL BILIRUBIN ADULT 0.6 MG/DL (0.2-1.0); TOTAL PROTEIN 6.1 GM/DL (6.4-8.2)
[2017-05-29] MEDS: CHLORHEXIDINE 0.12% (ORAL KIT) 15 ML CUP MT SCH ×2 (08:00→20:00)
[2017-05-29] MEDS: INSULIN ASPART SUPPLEMENTAL SCALE SQ SCH ×4 (08:00→20:29)
[2017-05-29] MEDS ORDERED: MIDAZOLAM HCL 5 MG/ML VIAL (1 ML) ONE ×2 (08:52→08:53)
[2017-05-29] MEDS: BUDESONIDE-FORMOTEROL 160/4.5 MCG INHALER INH SCH ×2 (09:00→20:29)
[2017-05-29] MEDS: DOCUSATE SODIUM 100 MG CAP PO SCH ×3 (09:00→20:24)
[2017-05-29] MEDS: guaiFENesin SOLUTION 200 MG/10 ML CUP PO SCH ×2 (09:00→20:23)
[2017-05-29] MEDS: TIOTROPIUM BROMIDE 18 MCG INH INH SCH (09:00)
[2017-05-29] MEDS: SENNOSIDES SYRUP 8.8 MG/5 ML CUP PO SCH (09:00)
[2017-05-29] MEDS: CALCITRIOL 0.25 MCG CAP PO SCH (09:11)
[2017-05-29] MEDS: SODIUM CHLORIDE 0.9% FLUSH 10 ML FLUSH IV FLUSH SCH ×2 (09:11→20:28)
[2017-05-29] MEDS: POTASSIUM CHLORIDE 20 MEQ CONTROLLED RELEASE TAB PO SCH (09:11)
[2017-05-29] MEDS: levETIRAcetam 500 MG TAB PO SCH (09:11)
[2017-05-29] MEDS: CALCIUM ACETATE 667 MG CAP NG SCH ×3 (09:11→17:50)
--- NOTE | 2017-05-29 09:32 | MB ---
cc: Elliot Arizmendi DO DATE: 05/28/2017 REASON FOR CONSULTATION: Embolic stroke, consideration of ROBERT. HISTORY OF PRESENT ILLNESS: Irineo Mcgovern is an 82-year-old male who sees my partner, Dr. Main, in the office and presented to [facility] due to hypoxia. Apparently, the noted that his pulse oximetry had been in the 80s. Apparently, he was scheduled to undergo a bronchoscopy, but had acute hypoxemic respiratory failure and was placed on BiPAP and transferred to the ICU. The patient had been intubated and then extubated on 05/24/2017. Then yesterday, on 05/27, he was profoundly hypoxemic and hard to arouse and was intubated. An MRI was done showing minimal focal areas of restricted diffusion, concerning for embolic ischemic events. I was consulted from Neurology for consideration of ROBERT. In reviewing the chart, apparently palliative care had seen the patient and, at this time, the would like everything done and continue as a full code, and she would like to see if he has any neurological improvements. PAST MEDICAL HISTORY: 1. Hypertension. 2. Questionable history of atrial fibrillation. 3. Chronic obstructive pulmonary disease. 4. End-stage renal disease, on peritoneal dialysis. 5. History of stroke, with residual right-sided weakness. PAST SURGICAL HISTORY: 1. Tonsillectomy. 2. Peritoneal dialysis catheter placement. ALLERGIES: NO KNOWN DRUG ALLERGIES. MEDICATIONS: 1. Doxycycline 100 mg b.i.d. 2. DuoNeb every 6 hours as needed for shortness of breath. 3. Plavix 75 mg daily. 4. Cholestyramine 4 grams daily. 5. Lipitor 80 mg every night. 6. Hydralazine 10 mg every 8 hours. 7. Imdur 30 mg daily. 8. Nitroglycerine sublingual as needed. 9. Coreg 3.125 mg every 12 hours. 10. Norvasc 10 mg daily. 11. Aspirin 81 mg daily. 12. Gabapentin 100 mg b.i.d. 13. Keppra 250 mg every night and 500 mg b.i.d. 14. Celexa 20 mg daily. 15. Renvela 800 mg t.i.d. 16. Lasix 80 mg daily. 17. ophthalmic drops each eye every night. 18. Calcitriol 0.25 mcg daily. FAMILY HISTORY: Per the chart, mother during childbirth. Father of heart disease in his 50s. SOCIAL HISTORY: No previous history of tobacco, alcohol or drug abuse. REVIEW OF SYSTEMS: Unable to obtain due to the patient currently being intubated and sedated. PHYSICAL EXAMINATION: VITAL SIGNS: Temperature 97.7, heart rate 57, blood pressure 101/55, respirations 17, pulse oximetry 100% on mechanical ventilation. GENERAL: The patient is intubated and sedated. HEENT: Pupils are equal. NECK: Supple. No JVD at 45 degrees. No carotid bruits heard bilaterally. Carotid upstroke is brisk in nature. HEART: Regular rate and rhythm. Positive first and second heart sounds, without no noted murmurs, gallops or rubs. LUNGS: Have decreased breath sounds at bilateral bases. ABDOMEN: Soft, nontender, nondistended. No organomegaly noted. EXTREMITIES: Show no clubbing, cyanosis or edema. Femoral and distal pulses are intact bilaterally. NEUROLOGIC: Unable to obtain at this time due to sedation. SKIN: Warm, dry and intact. OSTEOPATHIC: No kyphoscoliosis or lordosis. LABORATORY DATA: Hemoglobin 10.4, hematocrit 30.9, platelets 189. Potassium 3.5, BUN 59, creatinine 8.76. Lactic acid 3.3. IMPRESSION: 1. Possible embolic stroke, concerning for cardiac cause. 2. History of previous cerebrovascular accident. 3. Acute hypoxemic respiratory failure, with reintubation. 4. Metabolic encephalopathy. 5. End stage renal disease, on peritoneal dialysis. 6. History of hypertension. 7. History of coronary artery disease. 8. Chronic obstructive pulmonary disease. 9. History of sleep apnea, on continuous positive airway pressure. RECOMMENDATIONS: 1. Mr. Mcgovern appears to have had a possible embolic cerebrovascular accident. I was asked to see him for consideration of ROBERT. 2. At this time, his would like to continue with everything as much as possible per the Palliative Care notes and so we will plan on doing this tomorrow while he is intubated. 3. Tube feeds will be held after midnight. 4. There is a questionable history of a recent drug-eluting stent placed, and if so, he should continue on aspirin and Plavix as long as possible from a neurological standpoint. Thank you for allowing me to see Irineo Mcgovern. If there are any questions, please do not hesitate to call. DO CIELO Honeycutt , 10:02 PM , 10:43 PM
[2017-05-29] MEDS: ASPIRIN EC 81 MG TABEC PO SCH (10:04)
[2017-05-29] MEDS: LACTOBACILLUS ACIDOPHILUS TAB PO SCH ×3 (10:04→17:50)
--- NOTE | 2017-05-29 10:26 | HHI.CCPN ---
Subjective Remarks/Hospital Course Patient is an 82-year-old male with a past medical history of hypertension, obstructive sleep apnea on CPAP, COPD, CVA, end-stage renal disease on peritoneal dialysis who was admitted under hospitalist service on 05/21/2017 for respiratory distress. He had a chest x-ray on arrival which showed complete opacification of the left hemithorax with left shift of the mediastinum. Subsequently, he had CT chest without contrast which showed collapse of the left lung that appears to be due to extensive debris within the left main stem bronchus extending peripherally. No obvious hilar mass seen. A pleural parenchymal atelectasis or scarring posteriorly in the superior segment of right lower lobe noted as well. The patient was seen by Dr. Hogue from pulmonary service and scheduled to undergo a bronchoscopy. He had an ABG early this morning on a nonrebreather mask which showed acute hypoxemic respiratory failure with a pH of 7.40, CO2 of 37, PaO2 59, saturation 87%. The patient was placed on BiPAP with 100% FIO2 and transferred to [facility] [place]. Critical care medicine was consulted for critical care management. When seen, the patient had a saturation of 90% on 100% FIO2. Due to worsening respiratory status, he was immediately intubated by myself and placed on full mechanical ventilation. Most of the history was obtained from reviewing the medical records. A repeat chest x-ray this morning prior to intubation showed no significant change with complete collapse of the left lung. 05/23 Patient remains intubated, sedated with Fentanyl drip. Required Levophed post intubation now off pressor. Afebrile. s/p bronch yesterday showed thick mucoid secretions/mucous plugs on left suctioned to clear CXR post bronch showed improved aeration on left. 05/24 Patient was extubated yesterday placed on partial non rebreather overnight. Awake and alert. Afebrile. 05/25: Patient remains on partial nonrebreather. Unable to wean remains hypoxic. Intermittently confused oriented to person and somewhat to place 05/26: Patient remains increasingly confused. Possible sepsis and metabolic encephalopathy cannot be ruled out. Check EEG. Broaden antibiotic with Zosyn, vancomycin. Will culture blood and peritoneal fluid. Use as needed Haldol for confusion/agitation. Patient was hypotensive in a.m. improved with IV albumin bolus 05/27: Patient profoundly hypoxemic placed on BiPAP, FiO2 was increased to 90% initially now weaned to 60%. Remains altered hard to arouse. Questionable airway protection, not a candidate for BiPAP. I discussed with his Jolynn Mcgovern who requested everything to be done. Patient was intubated and placed on mechanical ventilation. Will check MRI of brain, neurology consult as appropriate. His airway is anterior, Grade 2-3 view on DL 05/28: Remains intubated sedated. Dr. Brizuela consulted for bilateral occipital and left cerebellar embolic stroke. MRA of the brain and neck ordered, 2D echo also pending. Continue Plavix and aspirin for now. Neuro Dr. Brizuela. Bronchoscopy performed today for bilateral lower lobe atelectasis. Moderate amount of thick secretions removed 05/29: Remains intubated. Just had ROBERT, no cardiac source of emboli found. Status post bronchoscopy yesterday with thick secretions removed bilateral lower lobes. Discussed with Dr. Arizmendi. He recommends continuing aspirin and Plavix if in fact patient had CALLIE in March 2017. Objective Vital Signs Date Time Temp Pulse Resp B/P (MAP) Pulse Ox O2 Delivery O2 Flow Rate FiO2 05/29/17 09:43 100 35 05/29/17 06:00 54 05/29/17 04:00 98.2 16 139/61 (87) 05/29/17 00:24 Ventilator 05/26/17 09:30 6.00 Intake and Output 05/29/17 05/29/17 05/30/17 08:00 16:00 00:00 Intake Total 351 ml Output Total 0 ml 43 ml Balance 351 ml -43 ml Result Diagram: 05/29/17 0404 05/29/17 0404 Other Results Microbiology Date/Time Source Procedure Growth Status 05/27/17 11:18 Sputum Endotracheal Gram Stain - Final Complete 05/27/17 11:18 Sputum Endotracheal Sputum Culture - Final RARE GROWTH NORMAL RESPIRATORY JAKE Complete Imaging Last Impressions Head CT 05/22/17 0000 Signed Impressions: Service Date/Time: Monday, May 22, 2017 12:22 - CONCLUSION: Negative for acute process Kian Adkins MD FACR Chest X-Ray 05/22/17 0000 Signed Impressions: Service Date/Time: Monday, May 22, 2017 17:03 - CONCLUSION: 1. Left IJ central line in the SVC junction without pneumothorax. 2. Patchy airspace disease in the left mid to lower lung zones. Hunter Daniel MD Abdomen X-Ray 05/22/17 0000 Signed Impressions: Service Date/Time: Monday, May 22, 2017 10:27 - CONCLUSION: No evidence of obstruction. Nasogastric tube across the GE junction. No free air. Kian Adkins MD FACR Chest CT 05/21/17 0000 Signed Impressions: Service Date/Time: May 16:29 - CONCLUSION: 1. Complete collapse of the left lung appears to be due to extensive debris within the left mainstem bronchus extending peripherally. Bronchoscopy is recommended for further evaluation and possible treatment. 2. The esophagus appears to impinge on the posterior wall of the trachea and may partially obscure the lumen in the upper thorax. 3. No obvious hilar mass lesion although anatomic detail is limited due to the adjacent collapsed lung. This area can be reevaluated after clearing of the left mainstem bronchus and reexpansion of the left lung. 4. Pleural-parenchymal atelectasis or scarring posteriorly in the superior segment of the right lower lobe. Right lung is otherwise clear. 5. Atherosclerotic calcification of the coronary arteries. Calcification of the mitral valve annulus Gelacio Allen MD Objective Remarks GENERAL: Patient is 82 yo lying intubated sedated SKIN: Warm and dry. HEAD: Normocephalic. EYES: No scleral icterus. No injection or drainage. ENT: Orotracheally intubated NECK: Supple, trachea midline. No JVD or lymphadenopathy. CARDIOVASCULAR: Regular rate and rhythm without murmurs, gallops, or rubs. RESPIRATORY: Breath sounds equal bilaterally, but diminished at the bases. PRVC GASTROINTESTINAL: Abdomen soft, non-tender, nondistended. MUSCULOSKELETAL: No cyanosis, or edema. NEURO: Intubated sedated no spontaneous eye opening while on sedation. Did not follow commands to me A/P Assessment and Plan Assessment: Acute hypoxemic respiratory failure extubated 05/23, re intubated 05/27/17 Delirium/metabolic encephalopathy Embolic stroke bilateral occipital lobes, left cerebellar Possible sepsis s/p opacification of left lung due to mucous plugs-improved post bronch ESRD on peritoneal dialysis. History of hypertension. CAD, s/p CALLIE to RCA in Feb COPD History of sleep apnea on CPAP at home History of cerebrovascular accident. Plan: Neuro: MRI brain shows Embolic stroke bilateral occipital lobes, left cerebellar. MRA brain and neck unremarkable ROEBRT negative for cardiac source of emboli EEG shows encephalopathy no seizures CT brain 05/22- no acute process Pulm: Intubated and placed on mechanical ventilation 05/27 for lack of airway protection and hypoxia Anterior airway with DL Grade 3 view Bronchodilators ( DuoNeb). Mucomyst neb, hydrocortisone 50mg Q12. Inhaled budesonide s/p bronchoscopy 05/28/2017 large amount of thick mucoid secretions removed from bilateral lower lobe segmental bronchi s/p bronch 05/22 - thick mucoid secretions on left suctioned to clear. Follow up on BAL results Pulm is following- Dr. Hogue Hold Symbicort Spiriva while intubated. CV: Monitor HR and BP and maintain MAP> 65 mmHg. Echo in February showed EF of 55-60% with no regional wall motion abnormalities. Repeat echo ordered due to embolic stroke ROBERT negative for cardiac source of emboli 05/29/17 Continue with aspirin, Plavix, Lipitor. DC IV Heparin : Monitor renal function. I's and O's and avoid nephrotoxins. Nephrology- Dr. Salcedo, on peritoneal dialysis. May need to change to HD On Lasix 40mg daily IV, placed on hold GI: On Pepcid 10 mg IV q. 12 hours for GI prophylaxis. Speech eval, diet per speech ID: Continue Zosyn and vancomycin F/u blood and peritoneal fluid cultures-negative to date Monitor for signs of infections( fever and WBC). Follow up on BAL cx 05/28 Endo: SSI with Accu-Chek for glycemic control. Heme: Monitor CBC. GI prophylaxis with Pepcid, DVT prophylaxis with SCDs/ resume heparin sub-Q, DC IV Heparin Lines: Left IJ CVP placed 05/22 CCT 35 MIN excluding procedures Patient is critically ill with new embolic strokes delirium and now with evidence of aspiration. Intubated and placed on mechanical ventilation. Discussed with nephrology Dr. Salcedo. Prior to intubation I called and discussed with Mrs. Mcgovern. She requested full CODE STATUS with continued aggressive care. Palliative care consulted to address goals of care-patient overall declining over the last several months. Also explained to me that patient never had documented sz, but due to stroke in March and question of Alfonzo's palsy patient was placed on Santiago Santiago MD May 29, 2017 10:26
[2017-05-29] MEDS: HEPARIN SODIUM - SQ 10,000 UNITS/ML VIAL SQ SCH (11:06)
[2017-05-29] MEDS: CLOPIDOGREL 75 MG TAB PO SCH (11:06)
[2017-05-29] MEDS ORDERED: POTASSIUM BICARBONATE 25 MEQ EFFERVESCENT TAB PO ONE (12:45)
--- NOTE | 2017-05-29 13:31 | PD.CARD.PN ---
Subjective Subjective Remarks No events overnight ROBERT today, no source of embolic CVA noted Objective Medications Current Medications Medications (Trade) Dose Ordered Sig/[place] Route Start Time Stop Time Status Last Admin (Narcan Inj) 0.4 mg UNSCH PRN IV PUSH 05/21/17 16:30 (Duoneb Neb) 1 ampule Q4HR NEB PRN NEB 05/21/17 16:30 05/24/17 00:53 (Zithromax) 500 mg Q24H PO 05/22/17 17:00 05/28/17 15:58 (Tessalon) 100 mg TID PRN PO 05/21/17 18:00 05/22/17 04:17 (Ecotrin Ec) 81 mg DAILY PO 05/22/17 09:00 05/29/17 10:04 (Lipitor) 80 mg HS PO 05/21/17 21:00 05/28/17 20:39 (Rocaltrol) 0.25 mcg DAILY PO 05/22/17 09:00 05/29/17 09:11 (CeleXA) 20 mg DAILY PO 05/22/17 09:00 Future Hold 05/25/17 08:42 (Neurontin) 100 mg BID PO 05/21/17 21:00 Future Hold 05/25/17 20:29 (Apresoline) 10 mg Q8HR PO 05/21/17 22:00 Future Hold 05/25/17 06:00 (Imdur) 30 mg DAILY PO 05/22/17 09:00 Future Hold (Lactinex) 1 tab TID PO 05/22/17 09:00 05/29/17 12:37 (Keppra) 250 mg HS PO 05/21/17 21:00 05/28/17 23:31 (Keppra) 500 mg DAILY PO 05/22/17 09:00 05/29/17 09:11 (NS Inj) 10 ml WITH DIALYSIS PRN IV FLUSH 05/21/17 19:00 (Heparin Inj) Add 1000 units of Hepa... WITH DIALYSIS PRN IV FLUSH 05/21/17 19:00 Miscellaneous Information Patient in critical care unit? Ass... [id number] .XX 05/22/17 06:30 05/22/17 19:00 (Brethine Inj) 1 mg UNSCH PRN SQ 05/22/17 07:00 (D50w (Vial) Inj) 50 ml UNSCH PRN IV PUSH 05/22/17 07:00 (Glucagon Inj) 1 mg UNSCH PRN OTHER 05/22/17 07:00 (NovoLIN R SUPPLEMENTAL SCALE) 1 Q4H SQ 05/22/17 08:00 05/25/17 00:42 (Heparin Inj) 1,000 units WITH DIALYSIS PRN XX 05/22/17 09:00 (NS Flush) 10 ml UNSCH PRN IV FLUSH 05/22/17 09:00 (Phoslo) 667 mg TID NG 05/22/17 09:00 05/29/17 12:37 (Lasix Inj) 40 mg DAILY IV PUSH 05/23/17 09:00 Future Hold 05/25/17 08:42 (SoluCORTEF INJ) 50 mg Q12H IV PUSH 05/24/17 16:00 05/29/17 03:54 (Robitussin Liq) 600 mg BID PO 05/24/17 12:00 05/28/17 20:40 (Colace) 100 mg BID PO 05/24/17 21:00 05/28/17 08:15 (Senna Liq) 8.8 mg DAILY PO 05/24/17 18:00 05/28/17 08:14 (KCl) 20 meq DAILY PO 05/25/17 09:00 05/29/17 09:11 (Spiriva Inh) 18 mcg DAILY INH 05/25/17 16:00 (Symbicort 160-4.5 Mcg Inh) 1 puff Q12HR INH 05/25/17 21:00 05/26/17 20:53 (Haldol Inj) 2 mg Q6H PRN IV 05/25/17 16:15 Norepinephrine Bitartrate 250 ml @ 7.5 mls/hr TITRATE PRN IV 05/26/17 06:30 Piperacillin Sod/ Tazobactam Sod 50 ml @ 100 mls/hr Q8H IV 05/26/17 10:00 05/29/17 09:11 (Peridex 0.12% Liq) 15 ml BID@08,20 MT 05/27/17 20:00 05/29/17 08:00 Propofol 100 ml @ 2.19 mls/hr TITRATE PRN IV 05/27/17 09:15 05/29/17 10:54 (Mucomyst 20% Neb) 2 ml Q6HR NEB NEB 05/28/17 10:30 05/29/17 04:00 (Lactulose Liq) 30 ml QID PRN PO 05/28/17 14:15 (NS Flush) 2 ml BID IV FLUSH 05/28/17 21:00 05/29/17 09:11 (NS Flush) 2 ml UNSCH PRN IV FLUSH 05/28/17 18:30 (NovoLOG SUPPLEMENTAL SCALE) 1 ACHS SQ 05/28/17 21:00 05/28/17 20:47 (D50w (Vial) Inj) 50 ml UNSCH PRN IV PUSH 05/28/17 18:30 (Glucagon Inj) 1 mg UNSCH PRN OTHER 05/28/17 18:30 (Duoneb Neb) 1 ampule Q4HR NEB NEB 05/29/17 12:00 05/29/17 12:16 (Plavix) 75 mg DAILY PO 05/29/17 10:30 05/29/17 11:06 (Heparin Inj) 5,000 units Q12H SQ 05/29/17 11:00 05/29/17 11:06 Vital Signs / I&O Vital Signs Date Time Temp Pulse Resp B/P (MAP) Pulse Ox O2 Delivery O2 Flow Rate FiO2 05/29/17 12:17 100 35 05/29/17 10:00 58 05/29/17 09:43 100 35 05/29/17 08:00 97 Mechanical Ventilator 35 05/29/17 08:00 35 05/29/17 08:00 60 05/29/17 06:00 54 05/29/17 04:19 100 35 05/29/17 04:00 98.2 53 16 139/61 (87) 100 05/29/17 04:00 35 05/29/17 04:00 53 05/29/17 02:00 55 05/29/17 00:24 100 Ventilator 05/29/17 00:20 100 35 05/29/17 00:00 54 05/29/17 00:00 35 05/29/17 00:00 97.8 54 17 112/58 (76) 100 05/28/17 22:00 58 05/28/17 20:00 35 05/28/17 20:00 56 05/28/17 20:00 98.1 58 17 101/57 (72) 100 05/28/17 19:35 100 35 05/28/17 19:00 98 Mechanical Ventilator 35 05/28/17 18:00 58 05/28/17 16:00 57 05/28/17 16:00 97.7 57 17 101/55 (70) 100 05/28/17 16:00 35 05/28/17 15:45 100 35 05/28/17 14:00 54 05/28/17 14:00 53 I/O 05/28/17 05/28/17 05/28/17 05/29/17 05/29/17 05/29/17 07:00 15:00 23:00 07:00 15:00 23:00 Intake Total 170 ml 50 ml 221 ml 351 ml 232 ml Output Total 1110 ml 0 ml 0 ml 43 ml Balance 170 ml -1060 ml 221 ml 351 ml 189 ml Intake Oral 0 ml IV Total 50 ml 50 ml 50 ml 150 ml 232 ml Tube Feeding 51 ml 141 ml Other 120 ml 120 ml 60 ml Output Urine Total 0 ml 0 ml Peritoneal Fluid 1110 ml 43 ml # Voids 0 # Bowel Movements 1 1 1 Physical Exam GENERAL: Stable on the vent SKIN: Warm and dry. HEAD: Atraumatic. Normocephalic. EYES: Pupils equal and round. No scleral icterus. No injection or drainage. ENT: No nasal bleeding or discharge. Mucous membranes pink and moist. NECK: Trachea midline. No JVD. CARDIOVASCULAR: Regular rate and rhythm. RESPIRATORY: No accessory muscle use. Clear to auscultation. Breath sounds equal bilaterally. GASTROINTESTINAL: Abdomen soft, non-tender, nondistended. Hepatic and splenic margins not palpable. MUSCULOSKELETAL: Extremities without clubbing, cyanosis, or edema. No obvious deformities. NEUROLOGICAL: Sedated on the vent Laboratory Laboratory Tests Test 05/28/17 21:14 05/29/17 04:04 White Blood Count 8.4 TH/MM3 9.8 TH/MM3 Red Blood Count 3.22 MIL/MM3 3.31 MIL/MM3 Hemoglobin 10.2 GM/DL 10.4 GM/DL Hematocrit 29.1 % 30.6 % Mean Corpuscular Volume 90.4 FL 92.4 FL Mean Corpuscular Hemoglobin 31.6 PG 31.3 PG Mean Corpuscular Hemoglobin Concent 35.0 % 33.8 % Red Cell Distribution Width 15.3 % 15.4 % Platelet Count 170 TH/MM3 183 TH/MM3 Mean Platelet Volume 8.4 FL 8.5 FL Prothrombin Time 12.3 SEC Prothromb Time International Ratio 1.2 RATIO Activated Partial Thromboplast Time 37.2 SEC 84.9 SEC Neutrophils (%) (Auto) 77.4 % Lymphocytes (%) (Auto) 10.7 % Monocytes (%) (Auto) 10.8 % Eosinophils (%) (Auto) 0.8 % Basophils (%) (Auto) 0.3 % Neutrophils # (Auto) 7.6 TH/MM3 Lymphocytes # (Auto) 1.0 TH/MM3 Monocytes # (Auto) 1.1 TH/MM3 Eosinophils # (Auto) 0.1 TH/MM3 Basophils # (Auto) 0.0 TH/MM3 CBC Comment DIFF FINAL Differential Comment Blood Urea Nitrogen 57 MG/DL Creatinine 8.67 MG/DL Random Glucose 127 MG/DL Total Protein 6.1 GM/DL Albumin 2.3 GM/DL Calcium Level 9.8 MG/DL Magnesium Level 1.7 MG/DL Alkaline Phosphatase 49 U/L Aspartate Amino Transf (AST/SGOT) 22 U/L Alanine Aminotransferase (ALT/SGPT) 18 U/L Total Bilirubin 0.6 MG/DL Sodium Level 140 MEQ/L Potassium Level 3.1 MEQ/L Chloride Level 102 MEQ/L Carbon Dioxide Level 24.2 MEQ/L Anion Gap 14 MEQ/L Estimat Glomerular Filtration Rate 6 ML/MIN Triglycerides Level 72 MG/DL Cholesterol Level 88 MG/DL LDL Cholesterol 29 MG/DL HDL Cholesterol 45.1 MG/DL Cholesterol/HDL Ratio 1.95 RATIO Assessment and Plan Problem List: (1) CVA (cerebral vascular accident) ICD Codes: I63.9 - Cerebral infarction, unspecified (2) ESRD (end stage renal disease) on dialysis ICD Codes: N18.6 - End stage renal disease; Z99.2 - Dependence on renal dialysis Status: Chronic (3) Anemia ICD Codes: D64.9 - Anemia, unspecified Status: Chronic (4) Sepsis ICD Codes: A41.9 - Sepsis, unspecified organism Status: Acute (5) Encephalopathy ICD Codes: G93.40 - Encephalopathy, unspecified Assessment and Plan 1) ROBERT done No source of embolic CVA noted 2) Questionable history of coronary stent Nurse planning to discuss with if recent If recent, then would keep on ASA/Plavix Discussed with Dr. Diaz 3) Will see PRN, call with questions Elliot Arizmendi DO May 29, 2017 13:31
--- NOTE | 2017-05-29 13:41 | HHI.NPPN ---
Subjective General Problems: Anemia Renal Failure: Chronic, End Stage Renal Disease Interval History Pt remains intubated and sedated on vent. at bedside. Their children are in route from out of state and country. (Jania Gallagher) Review of Systems General General Remarks unable to obtain (Jania Gallagher) Objective Data Data 05/29/17 05/30/17 19:00 07:00 Intake Total 232 ml Output Total 43 ml Balance 189 ml IV Total 232 ml Peritoneal Fluid 43 ml Vital Signs Date Time Temp Pulse Resp B/P (MAP) Pulse Ox O2 Delivery O2 Flow Rate FiO2 05/29/17 12:17 100 35 05/29/17 10:00 58 05/29/17 09:43 100 35 05/29/17 08:00 97 Mechanical Ventilator 35 05/29/17 08:00 35 05/29/17 08:00 60 05/29/17 06:00 54 05/29/17 04:19 100 35 05/29/17 04:00 98.2 53 16 139/61 (87) 100 05/29/17 04:00 35 05/29/17 04:00 53 05/29/17 02:00 55 05/29/17 00:24 100 Ventilator 05/29/17 00:20 100 35 05/29/17 00:00 54 05/29/17 00:00 35 05/29/17 00:00 97.8 54 17 112/58 (76) 100 05/28/17 22:00 58 05/28/17 20:00 35 05/28/17 20:00 56 05/28/17 20:00 98.1 58 17 101/57 (72) 100 05/28/17 19:35 100 35 05/28/17 19:00 98 Mechanical Ventilator 35 05/28/17 18:00 58 05/28/17 16:00 57 05/28/17 16:00 97.7 57 17 101/55 (70) 100 05/28/17 16:00 35 05/28/17 15:45 100 35 05/28/17 14:00 54 05/28/17 14:00 53 (Jania Gallagher) -: 05/29/17 0404 05/29/17 0404 Imaging Last 72 hours Impressions Neck Magnetic Resonance Angiography 4/19/18 0000 Signed Impressions: Service Date/Time: May 12:13 - CONCLUSION: 1. Moderately limited examination due to motion degradation. 2. No significant flow-limiting stenosis demonstrated although portions of the internal carotid arteries and distal vertebral arteries are not sufficiently evaluated. Hunter Daniel MD Head Magnetic Resonance Angiography 05/28/17 Signed Impressions: Service Date/Time: May 12:13 - CONCLUSION: 1. Unremarkable [place] of [place] MRA examination. Specifically, no evidence for large vessel occlusion or significant aneurysm. Hunter Daniel MD Chest X-Ray 05/28/17 Signed Impressions: Service Date/Time: May 10:47 - CONCLUSION: 1. Bibasilar opacities. Marcus Shultz MD Chest X-Ray 05/27/17 Signed Impressions: Service Date/Time: Saturday, May 27, 2017 08:04 - CONCLUSION: 1. No significant 24-hour interval change. 2. Stable bilateral lower lung zone airspace disease, left greater than right, with probable small left pleural effusion. Hunter Daniel MD Chest CT 05/27/17 Signed Impressions: Service Date/Time: Saturday, May 27, 2017 12:16 - CONCLUSION: 1. There is normal aeration of the left upper lobe. However, there is abnormal material within the left lower lobe bronchus with collapse of the left lower lobe. 2. There is a new right lower lobe airspace consolidation and new small left pleural effusion. 3. There is new small volume of free fluid in the upper abdomen. 4. 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 Joe Curry MD Brain MRI 05/27/17 Signed Impressions: Service Date/Time: Saturday, May 27, 2017 11:45 - CONCLUSION: Marked central and cortical atrophy with periventricular white matter changes Minimal focal areas of restricted diffusion in both occipital lobes and left cerebellar hemisphere Suspicious for embolic ischemic event. Kian Adkins MD FACR Tubes & Lines: Tenckhoff Catheter Tubes & Lines Comment NG tube TLC right IJ Drip Comment Propofol (Jania Gallagher) Physical Exam General Appearance: Malnourished Appearance Remarks chronically ill, unresponsive on the ventilator (Jania Gallagher) Eyes Eye Exam: Pupils Equal (Jania Gallagher) Throat Throat Exam: Oral Mucosa [place] & Moist (Jania Gallagher) Neck Neck Exam: Neck Supple (Jania Gallagher) Pulmonary Resp Exam: Crackles, Rhonchi, Decreased Bases Resp Remarks vented lung sounds (Jania Gallagher) Cardiology CV Exam: Regular, Normal Sinus Rhythm (Jania Gallagher) Gastrointestinal/Abdomen GI Exam: Soft (Jania Gallagher) Genitourinary Remarks he has become oliguric (Jania Gallagher) Musculoskeletal MS Exam: Joints Intact, Atrophy, Unable to Ambulate (Jania Gallagher) Integumentary Skin Exam: Warm, Dry, Intact Skin Remarks multiple abrasions/scars to lower extremities (Jania Gallagher) Extremeties Extremities Exam: No Edema, Pedal Pulses Palpable (Jania Gallagher) Neurologic Neuro Exam: Unresponsive, Sedated (Jania Gallagher) Assessment/Plan Discussed Condition With: Spouse Assessment Summary: Anemia of CKD, Malnutrition, Hypotension, End Stage Renal Disease Problem List: (1) End stage renal disease ICD Codes: N18.6 - End stage renal disease Status: Chronic Plan: We will continue PD for now. Low UF overnight. Advised RN to roll patient to assist with drainage. Last admission he had issues with catheter and fluid retention last admission, had catheter manipulated twice. Currently on 9 hr treatment time that includes 4 cycles of 2500 ml with no last fill. We are using 2.5% dextrose PD solution. Hold Lasix on hold. Minimal urine output. Avoid IVF administration Replace potassium as needed. Monitor phosphorus level periodically. Will continue with PD for now. (2) Bronchial obstruction ICD Codes: J98.09 - Other diseases of bronchus, not elsewhere classified Status: Acute Plan: Patient appears to have redeveloped atelectasis of the left lung. s/p reintubation (3) Hypoxia ICD Codes: R09.02 - Hypoxemia Status: Resolved Plan: See above. (4) Pneumonia ICD Codes: J18.9 - Pneumonia Status: Resolved Plan: Blood cultures have been negative so far On Zosyn lactic acid is elevated (5) Hypertension ICD Codes: I10 - Essential (primary) hypertension Status: Chronic Plan: Antihypertensives on hold. Monitor BP,use pressors if needed for BP support (6) Anemia ICD Codes: D64.9 - Anemia, unspecified Status: Chronic Plan: Given Epogen on 05/23/17 (7) CVA (cerebral vascular accident) ICD Codes: I63.9 - Cerebral infarction, unspecified Plan: ROBERT negative On heparin and ASA, off plavix. Plan (Jania Gallagher) Problem List: (1) End stage renal disease ICD Codes: N18.6 - End stage renal disease Status: Chronic Plan: We will continue PD for now. Low UF overnight. Advised RN to roll patient to assist with drainage. Last admission he had issues with catheter and fluid retention last admission, had catheter manipulated twice. Currently on 9 hr treatment time that includes 4 cycles of 2500 ml with no last fill. We are using 2.5% dextrose PD solution. Hold Lasix on hold. Minimal urine output. Avoid IVF administration Replace potassium as needed. Monitor phosphorus level periodically. Will continue with PD for now. (2) Bronchial obstruction ICD Codes: J98.09 - Other diseases of bronchus, not elsewhere classified Status: Acute Plan: Patient appears to have redeveloped atelectasis of the left lung. s/p reintubation (3) Hypoxia ICD Codes: R09.02 - Hypoxemia Status: Resolved Plan: See above. (4) Pneumonia ICD Codes: J18.9 - Pneumonia Status: Resolved Plan: Blood cultures have been negative so far On Zosyn lactic acid is elevated (5) Hypertension ICD Codes: I10 - Essential (primary) hypertension Status: Chronic Plan: Antihypertensives on hold. Monitor BP,use pressors if needed for BP support (6) Anemia ICD Codes: D64.9 - Anemia, unspecified Status: Chronic Plan: Given Epogen on 05/23/17 (7) CVA (cerebral vascular accident) ICD Codes: I63.9 - Cerebral infarction, unspecified Plan: ROBERT negative On heparin and ASA, off plavix. Plan patient was seen and examined. Agree with above assessment and plan. s/p ROBERT: negative for vegetation. Poor UF with PD. s/p CVA. Poor prognosis. Palliative care on the case. (Gabriel Salcedo MD) Jania Gallagher [facility] May 29, 2017 13:41 Gabriel Salcedo MD May 29, 2017 13:50
[2017-05-29 14:28] LABS: HEMOGLOBIN A1C 5.8 % (4.3-6.0)
[2017-05-29] MEDS: AZITHROMYCIN 250 MG TAB PO SCH (17:50)
[2017-05-29] MEDS ORDERED: fentaNYL 2,500 MCG/NS 250 ML IV PRN (18:15)
[2017-05-29] MEDS: ATORVASTATIN 80 MG TAB PO SCH (20:24)
[2017-05-29] MEDS: levETIRAcetam 250 MG TAB PO SCH (20:28)
[2017-05-30] VITALS (24 sets, daily range): BP systolic 94–126; BP diastolic 51–60; PULSE 49–60; RESP 12–27; TEMP 97.7–99.2; O2SAT 98–100
[2017-05-30] MEDS: RESP: ALBUTEROL 2.5 MG/IPRATROPIUM 0.5 MG NEB (SCH) NEB ×5 (00:23→19:40)
[2017-05-30] MEDS: HEPARIN SODIUM - SQ 10,000 UNITS/ML VIAL SQ SCH ×3 (00:35→22:33)
[2017-05-30] MEDS: PIPERACIL-TAZO 2.25 GM PREMIX 50 ML IV SCH ×3 (03:01→15:55)
[2017-05-30] MEDS: HYDROCORTISONE SOD SUCCINATE 100 MG VIAL IV PUSH SCH ×2 (03:01→15:56)
[2017-05-30] MEDS: RESP: ACETYLCYSTEINE 20% 30 ML NEB NEB SCH ×4 (03:30→19:41)
[2017-05-30] MEDS: INSULIN ASPART SUPPLEMENTAL SCALE SQ SCH ×4 (07:39→20:20)
[2017-05-30] MEDS: CHLORHEXIDINE 0.12% (ORAL KIT) 15 ML CUP MT SCH ×2 (07:39→20:20)
[2017-05-30] MEDS: TIOTROPIUM BROMIDE 18 MCG INH INH SCH (07:39)
[2017-05-30] MEDS: BUDESONIDE-FORMOTEROL 160/4.5 MCG INHALER INH SCH ×2 (07:39→20:17)
[2017-05-30] MEDS: guaiFENesin SOLUTION 200 MG/10 ML CUP PO SCH ×2 (07:40→20:17)
[2017-05-30] MEDS: CALCITRIOL 0.25 MCG CAP PO SCH (07:40)
[2017-05-30] MEDS: SODIUM CHLORIDE 0.9% FLUSH 10 ML FLUSH IV FLUSH SCH ×2 (07:40→20:19)
[2017-05-30] MEDS: LACTOBACILLUS ACIDOPHILUS TAB PO SCH ×3 (07:40→15:56)
[2017-05-30] MEDS: CLOPIDOGREL 75 MG TAB PO SCH (07:40)
[2017-05-30] MEDS: CALCIUM ACETATE 667 MG CAP NG SCH ×3 (07:40→15:56)
[2017-05-30] MEDS: levETIRAcetam 500 MG TAB PO SCH (07:40)
[2017-05-30] MEDS: SENNOSIDES SYRUP 8.8 MG/5 ML CUP PO SCH (07:41)
[2017-05-30] MEDS: POTASSIUM CHLORIDE 20 MEQ CONTROLLED RELEASE TAB PO SCH (07:41)
[2017-05-30] MEDS: ASPIRIN EC 81 MG TABEC PO SCH (07:41)
[2017-05-30] MEDS: DOCUSATE SODIUM 100 MG CAP PO SCH ×2 (07:41→20:18)
--- NOTE | 2017-05-30 09:53 | HHI.CCPN ---
Subjective Remarks/Hospital Course Patient is an 82-year-old male with a past medical history of hypertension, obstructive sleep apnea on CPAP, COPD, CVA, end-stage renal disease on peritoneal dialysis who was admitted under hospitalist service on 05/21/2017 for respiratory distress. He had a chest x-ray on arrival which showed complete opacification of the left hemithorax with left shift of the mediastinum. Subsequently, he had CT chest without contrast which showed collapse of the left lung that appears to be due to extensive debris within the left main stem bronchus extending peripherally. No obvious hilar mass seen. A pleural parenchymal atelectasis or scarring posteriorly in the superior segment of right lower lobe noted as well. The patient was seen by Dr. Hogue from pulmonary service and scheduled to undergo a bronchoscopy. He had an ABG early this morning on a nonrebreather mask which showed acute hypoxemic respiratory failure with a pH of 7.40, CO2 of 37, PaO2 59, saturation 87%. The patient was placed on BiPAP with 100% FIO2 and transferred to [facility] Critical care medicine was consulted for critical care management. When seen, the patient had a saturation of 90% on 100% FIO2. Due to worsening respiratory status, he was immediately intubated by myself and placed on full mechanical ventilation. Most of the history was obtained from reviewing the medical records. A repeat chest x-ray this morning prior to intubation showed no significant change with complete collapse of the left lung. 05/23 Patient remains intubated, sedated with Fentanyl drip. Required Levophed post intubation now off pressor. Afebrile. s/p bronch yesterday showed thick mucoid secretions/mucous plugs on left suctioned to clear CXR post bronch showed improved aeration on left. 05/24 Patient was extubated yesterday placed on partial non rebreather overnight. Awake and alert. Afebrile. 05/25: Patient remains on partial nonrebreather. Unable to wean remains hypoxic. Intermittently confused oriented to person and somewhat to place 05/26: Patient remains increasingly confused. Possible sepsis and metabolic encephalopathy cannot be ruled out. Check EEG. Broaden antibiotic with Zosyn, vancomycin. Will culture blood and peritoneal fluid. Use as needed Haldol for confusion/agitation. Patient was hypotensive in a.m. improved with IV albumin bolus 05/27: Patient profoundly hypoxemic placed on BiPAP, FiO2 was increased to 90% initially now weaned to 60%. Remains altered hard to arouse. Questionable airway protection, not a candidate for BiPAP. I discussed with his Jolynn Mcgovern who requested everything to be done. Patient was intubated and placed on mechanical ventilation. Will check MRI of brain, neurology consult as appropriate. His airway is anterior, Grade 2-3 view on DL 05/28: Remains intubated sedated. Dr. Brizuela consulted for bilateral occipital and left cerebellar embolic stroke. MRA of the brain and neck ordered, 2D echo also pending. Continue Plavix and aspirin for now. Neuro Dr. Brizuela. Bronchoscopy performed today for bilateral lower lobe atelectasis. Moderate amount of thick secretions removed 05/29: Remains intubated. Just had ROBERT, no cardiac source of emboli found. Status post bronchoscopy yesterday with thick secretions removed bilateral lower lobes. Discussed with Dr. Arizmendi. He recommends continuing aspirin and Plavix if in fact patient had CALLIE in March 2017. 05/30: Patient remains intubated sedation is held. Opens eyes tracks, weakly follows commands upper and lower extremity. Appears more alert. IV Heparin DCd yesterday Objective Vital Signs Date Time Temp Pulse Resp B/P (MAP) Pulse Ox O2 Delivery O2 Flow Rate FiO2 05/30/17 08:21 98 35 05/30/17 08:00 98.6 55 15 94/52 (66) 05/30/17 08:00 Mechanical Ventilator 05/26/17 09:30 6.00 Intake and Output 05/30/17 05/30/17 05/31/17 08:00 16:00 00:00 Intake Total 477 ml Output Total 222 ml Balance 477 ml -222 ml Result Diagram: 05/29/17 0404 05/29/17 0404 Other Results Microbiology Date/Time Source Procedure Growth Status 05/27/17 11:18 Sputum Endotracheal Gram Stain - Final Complete 05/27/17 11:18 Sputum Endotracheal Sputum Culture - Final RARE GROWTH NORMAL RESPIRATORY JAKE Complete Imaging Last Impressions Head CT 05/22/17 0000 Signed Impressions: Service Date/Time: Monday, May 22, 2017 12:22 - CONCLUSION: Negative for acute process Kian Adkins MD FACR Chest X-Ray 05/22/17 0000 Signed Impressions: Service Date/Time: Monday, May 22, 2017 17:03 - CONCLUSION: 1. Left IJ central line in the SVC junction without pneumothorax. 2. Patchy airspace disease in the left mid to lower lung zones. Hunter Daniel MD Abdomen X-Ray 05/22/17 0000 Signed Impressions: Service Date/Time: Monday, May 22, 2017 10:27 - CONCLUSION: No evidence of obstruction. Nasogastric tube across the GE junction. No free air. Kian Adkins MD FACR Chest CT 05/21/17 0000 Signed Impressions: Service Date/Time: May 16:29 - CONCLUSION: 1. Complete collapse of the left lung appears to be due to extensive debris within the left mainstem bronchus extending peripherally. Bronchoscopy is recommended for further evaluation and possible treatment. 2. The esophagus appears to impinge on the posterior wall of the trachea and may partially obscure the lumen in the upper thorax. 3. No obvious hilar mass lesion although anatomic detail is limited due to the adjacent collapsed lung. This area can be reevaluated after clearing of the left mainstem bronchus and reexpansion of the left lung. 4. Pleural-parenchymal atelectasis or scarring posteriorly in the superior segment of the right lower lobe. Right lung is otherwise clear. 5. Atherosclerotic calcification of the coronary arteries. Calcification of the mitral valve annulus Gelacio Allen MD Objective Remarks GENERAL: Patient is 82 yo lying intubated off sedation SKIN: Warm and dry. HEAD: Normocephalic. EYES: No scleral icterus. No injection or drainage. ENT: Orotracheally intubated NECK: Supple, trachea midline. No JVD or lymphadenopathy. CARDIOVASCULAR: Regular rate and rhythm without murmurs, gallops, or rubs. RESPIRATORY: Breath sounds equal bilaterally, but diminished at the bases. PRVC /AC GASTROINTESTINAL: Abdomen soft, non-tender, nondistended. MUSCULOSKELETAL: No cyanosis, or edema. NEURO: Intubated for sedation, spontaneous eye opening. Follows commands very weakly in all 4 extremities A/P Assessment and Plan Assessment: Acute hypoxemic respiratory failure extubated 05/23, re intubated 05/27/17 Delirium/metabolic encephalopathy Embolic stroke bilateral occipital lobes, left cerebellar Possible sepsis s/p opacification of left lung due to mucous plugs-improved post bronch ESRD on peritoneal dialysis. History of hypertension. CAD, s/p CALLIE to RCA in Feb COPD History of sleep apnea on CPAP at home History of cerebrovascular accident. Plan: Neuro: MRI brain shows embolic stroke bilateral occipital lobes, left cerebellar. MRA brain and neck unremarkable ROBERT negative for cardiac source of emboli EEG shows encephalopathy no seizures CT brain 05/22- no acute process Pulm: Intubated and placed on mechanical ventilation 05/27 for lack of airway protection and hypoxia Anterior airway with DL Grade 3 view Bronchodilators ( DuoNeb). Mucomyst neb, hydrocortisone 50mg Q12- reduce to 25 q12. Inhaled budesonide s/p bronchoscopy 05/28/2017 large amount of thick mucoid secretions removed from bilateral lower lobe segmental bronchi s/p bronch 05/22 - thick mucoid secretions on left suctioned to clear. Follow up on BAL results Pulm is following- Dr. Hogue. Hold Symbicort Spiriva while intubated. Start weaning trials but generalized weakness will not permit extubation at this time CV: Monitor HR and BP and maintain MAP> 65 mmHg. Echo in February showed EF of 55-60% with no regional wall motion abnormalities. ROBERT negative for cardiac source of emboli 05/29/17 Continue with aspirin, Plavix, Lipitor. : Monitor renal function. I's and O's and avoid nephrotoxins. Nephrology- Dr. Salcedo, on peritoneal dialysis. Lasix 40mg daily IV on hold GI: On Pepcid 10 mg IV q. 12 hours for GI prophylaxis. Tube feeds with Nepro, resume ID: Continue Zosyn and vancomycin F/u blood and peritoneal fluid cultures-negative to date Monitor for signs of infections( fever and WBC). Follow up on BAL cx 05/28 Endo: SSI with Accu-Chek for glycemic control. Heme: Monitor CBC. GI prophylaxis with Pepcid, DVT prophylaxis with SCDs/ resume heparin sub-Q, DC IV Heparin Lines: Left IJ CVP placed 05/22 CCT Level 3. Continue [facility] care. Initiate vent weaning Patient is critically ill with new embolic strokes delirium and CT chest with evidence of aspiration. Intubated and placed on mechanical ventilation. Discussed with nephrology Dr. Salcedo. Prior to intubation I called and discussed with Jerel Froilan. She requested full CODE STATUS with continued aggressive care. Palliative care consulted to address goals of care-patient overall declining over the last several months. Also explained to me that patient never had documented sz, but due to stroke in March and question of Alfonzo's palsy patient was placed on Santiago Santiago MD May 30, 2017 09:53
--- NOTE | 2017-05-30 10:24 | HHI.NPPN ---
Subjective General Problems: Anemia Renal Failure: Chronic, End Stage Renal Disease Additional Remarks Patient intubated on CPAP trial. PD nightly. (Ember Perez) Review of Systems General General Remarks unable to obtain (Ember Perez) Objective Data Data 05/30/17 05/31/17 19:00 07:00 Output Total 222 ml Balance -222 ml Peritoneal Fluid 222 ml Vital Signs Date Time Temp Pulse Resp B/P (MAP) Pulse Ox O2 Delivery O2 Flow Rate FiO2 05/30/17 10:00 57 05/30/17 09:00 40 05/30/17 08:21 98 35 05/30/17 08:00 98.6 55 15 94/52 (66) 100 05/30/17 08:00 35 05/30/17 08:00 100 Mechanical Ventilator 35 05/30/17 08:00 55 05/30/17 06:00 54 05/30/17 04:00 97.7 50 17 106/54 (71) 100 05/30/17 04:00 35 05/30/17 04:00 50 05/30/17 03:32 100 35 05/30/17 02:00 52 05/30/17 00:25 100 35 05/30/17 00:00 35 05/30/17 00:00 49 05/30/17 00:00 97.7 49 17 107/55 (72) 100 05/29/17 22:00 51 05/29/17 20:00 56 05/29/17 20:00 97.6 56 16 115/57 (76) 100 05/29/17 20:00 35 05/29/17 19:57 100 35 05/29/17 19:00 100 Mechanical Ventilator 30 05/29/17 18:00 61 05/29/17 17:00 61 19 112/56 (74) 100 05/29/17 17:00 61 05/29/17 16:00 98.6 61 16 101/59 (73) 100 05/29/17 16:00 35 05/29/17 16:00 61 05/29/17 15:56 100 35 05/29/17 15:00 59 05/29/17 15:00 58 18 122/58 (79) 100 05/29/17 14:00 60 23 146/64 (91) 100 05/29/17 14:00 60 05/29/17 13:00 59 19 113/56 (75) 100 05/29/17 13:00 59 05/29/17 12:17 100 35 05/29/17 12:00 55 05/29/17 12:00 35 05/29/17 12:00 98.7 55 26 138/64 (88) 100 05/29/17 11:00 50 17 123/60 (81) 100 (Ember Perez) -: 05/29/17 0404 05/29/17 0404 Imaging Last Impressions Neck Magnetic Resonance Angiography 05/28/17 0000 Signed Impressions: Service Date/Time: May 12:13 - CONCLUSION: 1. Moderately limited examination due to motion degradation. 2. No significant flow-limiting stenosis demonstrated although portions of the internal carotid arteries and distal vertebral arteries are not sufficiently evaluated. Hunter Daniel MD Head Magnetic Resonance Angiography 05/28/17 0000 Signed Impressions: Service Date/Time: May 12:13 - CONCLUSION: 1. Unremarkable [place] MRA examination. Specifically, no evidence for large vessel occlusion or significant aneurysm. Hunter Daniel MD Chest X-Ray 05/28/17 0000 Signed Impressions: Service Date/Time: May 10:47 - CONCLUSION: 1. Bibasilar opacities. Marcus Shultz MD Chest CT 05/27/17 0000 Signed Impressions: Service Date/Time: Saturday, May 27, 2017 12:16 - CONCLUSION: 1. There is normal aeration of the left upper lobe. However, there is abnormal material within the left lower lobe bronchus with collapse of the left lower lobe. 2. There is a new right lower lobe airspace consolidation and new small left pleural effusion. 3. There is new small volume of free fluid in the upper abdomen. 4. 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 Joe Curry MD Brain MRI 05/27/17 0000 Signed Impressions: Service Date/Time: Saturday, May 27, 2017 11:45 - CONCLUSION: Marked central and cortical atrophy with periventricular white matter changes Minimal focal areas of restricted diffusion in both occipital lobes and left cerebellar hemisphere Suspicious for embolic ischemic event. Kian Adkins MD FACR Head CT 05/22/17 0000 Signed Impressions: Service Date/Time: Monday, May 22, 2017 12:22 - CONCLUSION: Negative for acute process Kian Adkins MD FACR Abdomen X-Ray 05/22/17 0000 Signed Impressions: Service Date/Time: Monday, May 22, 2017 10:27 - CONCLUSION: No evidence of obstruction. Nasogastric tube across the GE junction. No free air. Kian Adkins MD FACR Tubes & Lines: Tenckhoff Catheter Tubes & Lines Comment NG tube TLC right IJ (Ember Perez. BOLT THREADER) Physical Exam General Appearance: No Acute Distress (Ember Perez M. BOLT THREADER) Eyes Eye Exam: Pupils Equal (Ellen Perezne M. BOLT THREADER) Throat Throat Exam: Oral Mucosa Cu[place] & Moist (Ellen Perezne M. BOLT THREADER) Neck Neck Exam: Neck Supple (CarollerEllen brayne M. BOLT THREADER) Pulmonary Resp Exam: Crackles, Rhonchi, Decreased Bases (CarollerEllen brayne M. BOLT THREADER) Cardiology CV Exam: Regular, Normal Sinus Rhythm (Ellen Perezne M. BOLT THREADER) Gastrointestinal/Abdomen GI Exam: Soft (CarollerEllen brayne M. BOLT THREADER) Musculoskeletal MS Exam: Joints Intact, Atrophy, Unable to Ambulate (CarollerEllen brayne M. BOLT THREADER) Integumentary Skin Exam: Warm, Dry, Intact (Ellen Perezne M. BOLT THREADER) Extremeties Extremities Exam: No Edema, Pedal Pulses Palpable (CarollerEllen brayne M. BOLT THREADER) Neurologic Neuro Exam: Unresponsive, Sedated (Ellen Perezne M. BOLT THREADER) Assessment/Plan Discussed Condition With: Spouse Assessment Summary: Anemia of CKD, Malnutrition, Hypotension, End Stage Renal Disease Problem List: (1) End stage renal disease ICD Codes: N18.6 - End stage renal disease Status: Chronic Plan: Last admission he had issues with catheter and fluid retention last admission, had catheter manipulated twice. Currently on 9 hr treatment time that includes 4 cycles of 2500 ml with no last fill. We are using 2.5% dextrose PD solution. Continue to hold lasix. Minimal urine output. Avoid IVF administration Continue phoslo and Calcitrol Replace potassium as needed. Monitor phosphorus level periodically. Will continue with PD for now. (2) Bronchial obstruction ICD Codes: J98.09 - Other diseases of bronchus, not elsewhere classified Status: Acute Plan: Patient appears to have redeveloped atelectasis of the left lung. s/p reintubation (3) Hypoxia ICD Codes: R09.02 - Hypoxemia Status: Resolved Plan: See above. (4) Pneumonia ICD Codes: J18.9 - Pneumonia Status: Resolved Plan: Blood cultures have been negative so far On Zosyn lactic acid is elevated (5) Hypertension ICD Codes: I10 - Essential (primary) hypertension Status: Chronic Plan: Antihypertensives on hold. Monitor BP,use pressors if needed for BP support (6) Anemia ICD Codes: D64.9 - Anemia, unspecified Status: Chronic Plan: Given Epogen on 05/23/17 (7) CVA (cerebral vascular accident) ICD Codes: I63.9 - Cerebral infarction, unspecified Plan: ROBERT negative On heparin and ASA, off plavix. Plan (Ember Perez) Problem List: (1) End stage renal disease ICD Codes: N18.6 - End stage renal disease Status: Chronic Plan: Last admission he had issues with catheter and fluid retention last admission, had catheter manipulated twice. Currently on 9 hr treatment time that includes 4 cycles of 2500 ml with no last fill. We are using 2.5% dextrose PD solution. Continue to hold lasix. Minimal urine output. Avoid IVF administration Continue phoslo and Calcitrol Replace potassium as needed. Monitor phosphorus level periodically. Will continue with PD for now. Patient seen and examine, agree with above. Continue same APD. Weaning as per CCM. (2) Bronchial obstruction ICD Codes: J98.09 - Other diseases of bronchus, not elsewhere classified Status: Acute Plan: Patient appears to have redeveloped atelectasis of the left lung. s/p reintubation (3) Hypoxia ICD Codes: R09.02 - Hypoxemia Status: Resolved Plan: See above. (4) Pneumonia ICD Codes: J18.9 - Pneumonia Status: Resolved Plan: Blood cultures have been negative so far On Zosyn lactic acid is elevated (5) Hypertension ICD Codes: I10 - Essential (primary) hypertension Status: Chronic Plan: Antihypertensives on hold. Monitor BP,use pressors if needed for BP support (6) Anemia ICD Codes: D64.9 - Anemia, unspecified Status: Chronic Plan: Given Epogen on 05/23/17 (7) CVA (cerebral vascular accident) ICD Codes: I63.9 - Cerebral infarction, unspecified Plan: ROBERT negative On heparin and ASA, off plavix. (Tiffany Ho MD) Ember Perez May 30, 2017 10:23 Tiffany Ho MD May 31, 2017 12:29
[2017-05-30] MEDS: AZITHROMYCIN 250 MG TAB PO SCH (15:55)
[2017-05-30] MEDS: levETIRAcetam 250 MG TAB PO SCH (20:18)
[2017-05-30] MEDS: ATORVASTATIN 80 MG TAB PO SCH (20:18)
[2017-05-31] VITALS (17 sets, daily range): BP systolic 103–140; BP diastolic 51–63; PULSE 54–65; RESP 12–23; TEMP 98.3–99.4; O2SAT 98–100
[2017-05-31] MEDS: RESP: ALBUTEROL 2.5 MG/IPRATROPIUM 0.5 MG NEB (SCH) NEB ×6 (00:36→21:08)
[2017-05-31] MEDS: PIPERACIL-TAZO 2.25 GM PREMIX 50 ML IV SCH ×3 (01:37→16:50)
[2017-05-31] MEDS: RESP: ACETYLCYSTEINE 20% 30 ML NEB NEB SCH ×4 (03:33→21:08)
[2017-05-31 04:26] LABS: AUTOMATED NEUTROPHIL # 8.9 TH/MM3 (1.8-7.7); BASOPHIL % 0.1 % (0.0-2.0); EOSINOPHIL % 0.4 % (0.0-4.0); HEMATOCRIT 28.8 % (39.0-51.0); HEMOGLOBIN 9.8 GM/DL (13.0-17.0); LYMPH % 8.4 % (9.0-44.0); LYMPHOCYTE # 0.9 TH/MM3 (1.0-4.8); MEAN CELL VOLUME 90.9 FL (80.0-100.0); MEAN CORPUSCULAR HEMOGLOBIN 31.1 PG (27.0-34.0); MEAN CORPUSCULAR HGB CONC 34.2 % (32.0-36.0); MEAN PLATELET VOLUME 7.7 FL (7.0-11.0); MONO % 11.8 % (0.0-8.0); MONOCYTE # 1.3 TH/MM3 (0-0.9); NEUT % 79.3 % (16.0-70.0); PLATELET COUNT 151 TH/MM3 (150-450); RED BLOOD COUNT 3.16 MIL/MM3 (4.50-5.90); RED CELL DISTRIBUTION WIDTH 15.7 % (11.6-17.2); WHITE BLOOD COUNT 11.2 TH/MM3 (4.0-11.0)
[2017-05-31] MEDS: HYDROCORTISONE SOD SUCCINATE 100 MG VIAL IV PUSH SCH ×2 (04:45→16:49)
[2017-05-31 05:23] LABS: ALBUMIN 2.4 GM/DL (3.4-5.0); ALKALINE PHOSPHATASE 103 U/L (45-117); ALT (GPT) 23 U/L (12-78); AST (GOT) 20 U/L (15-37); BICARBONATE 25.5 MEQ/L (21.0-32.0); BLOOD UREA NITROGEN 51 MG/DL (7-18); CALCIUM 9.5 MG/DL (8.5-10.1); CHLORIDE 97 MEQ/L (98-107); CREATININE 8.18 MG/DL (0.60-1.30); GLOMERULAR FILTRATION RATE 6 ML/MIN (>89); GLUCOSE,RANDOM 103 MG/DL (74-106); MAGNESIUM 1.9 MG/DL (1.5-2.5); SODIUM (NA) 139 MEQ/L (136-145); TOTAL BILIRUBIN ADULT 0.7 MG/DL (0.2-1.0); TOTAL PROTEIN 5.9 GM/DL (6.4-8.2)
[2017-05-31 05:33] LABS: LYMPHOCYTES 8 % (9-44); METAMYELOCYTES 1 % (0-1); MONOCYTES 6 % (0-8); NEUTROPHIL # MANUAL DIFF 9.6 TH/MM3 (1.8-7.7); POLYS (SEG NEUTROPHILS) 85 % (16-70)
[2017-05-31] MEDS ORDERED: POTASSIUM CHLOR 40 MEQ PREMIX 100 ML IV ONE (06:15)
--- NOTE | 2017-05-31 06:26 | RADRPT ---
EXAM DATE/TIME: 05/31/2017 05:21 [facility] COMPARISON: CHEST SINGLE AP, May 28, 2017, 10:47. INDICATIONS : Shortness of breath, possible pulmonary disease. MEDICAL HISTORY : Hypertension. Chronic obstructive pulmonary disease. SURGICAL HISTORY : Tonsillectomy. ENCOUNTER: Subsequent ACUITY: 1 week PAIN SCORE: Non-responsive. LOCATION: Bilateral chest FINDINGS: Single portable frontal view the chest shows persistent bibasilar consolidations. No significant garcia ge. No effusions. Heart is at the upper limits of normal in terms of size. The endotracheal tube 4 cm proximal to the queenie. Nasogastric tube tip courses off the inferior margin of the film. Left sided central line. CONCLUSION: Unchanged bibasilar infiltrates. Abhishek Fatima Jr., MD on May 31, 2017 at 6:24 Board Certified Radiologist. This report was verified electronically.
[2017-05-31] MEDS: BUDESONIDE-FORMOTEROL 160/4.5 MCG INHALER INH SCH ×2 (07:26→20:29)
[2017-05-31] MEDS: CHLORHEXIDINE 0.12% (ORAL KIT) 15 ML CUP MT SCH ×2 (07:26→20:10)
[2017-05-31] MEDS: TIOTROPIUM BROMIDE 18 MCG INH INH SCH (07:26)
[2017-05-31] MEDS: LACTOBACILLUS ACIDOPHILUS TAB PO SCH ×3 (07:27→16:49)
[2017-05-31] MEDS: SODIUM CHLORIDE 0.9% FLUSH 10 ML FLUSH IV FLUSH SCH ×2 (07:27→20:07)
[2017-05-31] MEDS: CLOPIDOGREL 75 MG TAB PO SCH (07:27)
[2017-05-31] MEDS: levETIRAcetam 500 MG TAB PO SCH (07:27)
[2017-05-31] MEDS: ASPIRIN EC 81 MG TABEC PO SCH (07:27)
[2017-05-31] MEDS: CALCIUM ACETATE 667 MG CAP NG SCH ×3 (07:28→16:49)
[2017-05-31] MEDS: CALCITRIOL 0.25 MCG CAP PO SCH (07:28)
[2017-05-31] MEDS: SENNOSIDES SYRUP 8.8 MG/5 ML CUP PO SCH (07:28)
[2017-05-31] MEDS: POTASSIUM CHLORIDE 20 MEQ CONTROLLED RELEASE TAB PO SCH (07:28)
[2017-05-31] MEDS: DOCUSATE SODIUM 100 MG CAP PO SCH ×2 (07:28→20:07)
[2017-05-31] MEDS: guaiFENesin SOLUTION 200 MG/10 ML CUP PO SCH ×2 (07:28→20:06)
[2017-05-31] MEDS: INSULIN ASPART SUPPLEMENTAL SCALE SQ SCH ×4 (07:29→20:09)
--- NOTE | 2017-05-31 10:39 | HHI.CCPN ---
Subjective Remarks/Hospital Course Patient is an 82-year-old male with a past medical history of hypertension, obstructive sleep apnea on CPAP, COPD, CVA, end-stage renal disease on peritoneal dialysis who was admitted under hospitalist service on 05/21/2017 for respiratory distress. He had a chest x-ray on arrival which showed complete opacification of the left hemithorax with left shift of the mediastinum. Subsequently, he had CT chest without contrast which showed collapse of the left lung that appears to be due to extensive debris within the left main stem bronchus extending peripherally. No obvious hilar mass seen. A pleural parenchymal atelectasis or scarring posteriorly in the superior segment of right lower lobe noted as well. The patient was seen by Dr. Hogue from pulmonary service and scheduled to undergo a bronchoscopy. He had an ABG early this morning on a nonrebreather mask which showed acute hypoxemic respiratory failure with a pH of 7.40, CO2 of 37, PaO2 59, saturation 87%. The patient was placed on BiPAP with 100% FIO2 and transferred to [facility]. Critical care medicine was consulted for critical care management. When seen, the patient had a saturation of 90% on 100% FIO2. Due to worsening respiratory status, he was immediately intubated by myself and placed on full mechanical ventilation. Most of the history was obtained from reviewing the medical records. A repeat chest x-ray this morning prior to intubation showed no significant change with complete collapse of the left lung. 05/23 Patient remains intubated, sedated with Fentanyl drip. Required Levophed post intubation now off pressor. Afebrile. s/p bronch yesterday showed thick mucoid secretions/mucous plugs on left suctioned to clear CXR post bronch showed improved aeration on left. 05/24 Patient was extubated yesterday placed on partial non rebreather overnight. Awake and alert. Afebrile. 05/25: Patient remains on partial nonrebreather. Unable to wean remains hypoxic. Intermittently confused oriented to person and somewhat to place 05/26: Patient remains increasingly confused. Possible sepsis and metabolic encephalopathy cannot be ruled out. Check EEG. Broaden antibiotic with Zosyn, vancomycin. Will culture blood and peritoneal fluid. Use as needed Haldol for confusion/agitation. Patient was hypotensive in a.m. improved with IV albumin bolus 05/27: Patient profoundly hypoxemic placed on BiPAP, FiO2 was increased to 90% initially now weaned to 60%. Remains altered hard to arouse. Questionable airway protection, not a candidate for BiPAP. I discussed with his Jolynn Mcgovern who requested everything to be done. Patient was intubated and placed on mechanical ventilation. Will check MRI of brain, neurology consult as appropriate. His airway is anterior, Grade 2-3 view on DL 05/28: Remains intubated sedated. Dr. Brizuela consulted for bilateral occipital and left cerebellar embolic stroke. MRA of the brain and neck ordered, 2D echo also pending. Continue Plavix and aspirin for now. Neuro Dr. Brizuela. Bronchoscopy performed today for bilateral lower lobe atelectasis. Moderate amount of thick secretions removed 05/29: Remains intubated. Just had ROBERT, no cardiac source of emboli found. Status post bronchoscopy yesterday with thick secretions removed bilateral lower lobes. Discussed with Dr. Arizmendi. He recommends continuing aspirin and Plavix if in fact patient had CALLIE in March 2017. 05/30: Patient remains intubated sedation is held. Opens eyes tracks, weakly follows commands upper and lower extremity. Appears more alert. IV Heparin DCd yesterday 05/31: T-max 99.4. Fentanyl infusion placed on hold yesterday. patient awake and responsive CPAP trials tolerated for approximately 10-12 hours yesterday. The pouch was initiated this a.m.. Patient continues to be weak physical therapy initiated occupational therapy initiated. Objective Vital Signs Date Time Temp Pulse Resp B/P (MAP) Pulse Ox O2 Delivery O2 Flow Rate FiO2 05/31/17 08:00 35 05/31/17 08:00 100 Mechanical Ventilator 05/31/17 08:00 99.0 59 14 132/63 (86) Intake and Output 05/31/17 05/31/17 06/01/17 08:00 16:00 00:00 Intake Total 625 ml Balance 625 ml Result Diagram: 05/31/17 0412 05/31/17 0412 Other Results Microbiology Date/Time Source Procedure Growth Status 05/28/17 10:32 Bronchial Washings Right Lower Lobe Gram Stain - Final Complete 05/28/17 10:32 Bronchial Washings Right Lower Lobe Bronchial Culture - Final NO GROWTH IN 48 HOURS. Complete 05/28/17 10:32 Bronchial Washings Left Lower Lobe Gram Stain - Final Complete 05/28/17 10:32 Bronchial Washings Left Lower Lobe Bronchial Culture - Final NO GROWTH IN 48 HOURS. Complete Imaging Last Impressions Chest X-Ray 05/31/17 0600 Signed Impressions: Service Date/Time: Wednesday, May 31, 2017 05:21 - CONCLUSION: Unchanged bibasilar infiltrates. Abhishek Fatima Jr., MD Neck Magnetic Resonance Angiography 05/28/17 0000 Signed Impressions: Service Date/Time: May 12:13 - CONCLUSION: 1. Moderately limited examination due to motion degradation. 2. No significant flow-limiting stenosis demonstrated although portions of the internal carotid arteries and distal vertebral arteries are not sufficiently evaluated. Hunter Daniel MD Head Magnetic Resonance Angiography 05/28/17 0000 Signed Impressions: Service Date/Time: May 12:13 - CONCLUSION: 1. Unremarkable [place] MRA examination. Specifically, no evidence for large vessel occlusion or significant aneurysm. Hunter Daniel MD Chest CT 05/27/17 0000 Signed Impressions: Service Date/Time: Saturday, May 27, 2017 12:16 - CONCLUSION: 1. There is normal aeration of the left upper lobe. However, there is abnormal material within the left lower lobe bronchus with collapse of the left lower lobe. 2. There is a new right lower lobe airspace consolidation and new small left pleural effusion. 3. There is new small volume of free fluid in the upper abdomen. 4. 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 Joe Curry MD Brain MRI 05/27/17 0000 Signed Impressions: Service Date/Time: Saturday, May 27, 2017 11:45 - CONCLUSION: Marked central and cortical atrophy with periventricular white matter changes Minimal focal areas of restricted diffusion in both occipital lobes and left cerebellar hemisphere Suspicious for embolic ischemic event. Kian Adkins MD FACR Head CT 05/22/17 0000 Signed Impressions: Service Date/Time: Monday, May 22, 2017 12:22 - CONCLUSION: Negative for acute process Kian Adkins MD FACR Abdomen X-Ray 05/22/17 0000 Signed Impressions: Service Date/Time: Monday, May 22, 2017 10:27 - CONCLUSION: No evidence of obstruction. Nasogastric tube across the GE junction. No free air. Kian Adkins MD FACR Last Impressions Head CT 05/22/17 0000 Signed Impressions: Service Date/Time: Monday, May 22, 2017 12:22 - CONCLUSION: Negative for acute process Kian Adkins MD FACR Chest X-Ray 05/22/17 0000 Signed Impressions: Service Date/Time: Monday, May 22, 2017 17:03 - CONCLUSION: 1. Left IJ central line in the SVC junction without pneumothorax. 2. Patchy airspace disease in the left mid to lower lung zones. Hunter Daniel MD Abdomen X-Ray 05/22/17 0000 Signed Impressions: Service Date/Time: Monday, May 22, 2017 10:27 - CONCLUSION: No evidence of obstruction. Nasogastric tube across the GE junction. No free air. Kian Adkins MD FACR Chest CT 05/21/17 0000 Signed Impressions: Service Date/Time: May 16:29 - CONCLUSION: 1. Complete collapse of the left lung appears to be due to extensive debris within the left mainstem bronchus extending peripherally. Bronchoscopy is recommended for further evaluation and possible treatment. 2. The esophagus appears to impinge on the posterior wall of the trachea and may partially obscure the lumen in the upper thorax. 3. No obvious hilar mass lesion although anatomic detail is limited due to the adjacent collapsed lung. This area can be reevaluated after clearing of the left mainstem bronchus and reexpansion of the left lung. 4. Pleural-parenchymal atelectasis or scarring posteriorly in the superior segment of the right lower lobe. Right lung is otherwise clear. 5. Atherosclerotic calcification of the coronary arteries. Calcification of the mitral valve annulus Gelacio Allen MD Objective Remarks GENERAL: Patient is 82 yo lying intubated off sedation SKIN: Warm and dry. HEAD: Normocephalic. EYES: No scleral icterus. No injection or drainage. ENT: Orotracheally intubated NECK: Supple, trachea midline. No JVD or lymphadenopathy. CARDIOVASCULAR: Regular rate and rhythm without murmurs, gallops, or rubs. RESPIRATORY: Breath sounds equal bilaterally, but diminished at the bases. PRVC /AC GASTROINTESTINAL: Abdomen soft, non-tender, nondistended. MUSCULOSKELETAL: No cyanosis, or edema. NEURO: Intubated for sedation, spontaneous eye opening. Follows commands very weakly in all 4 extremities A/P Assessment and Plan Assessment: Acute hypoxemic respiratory failure extubated 05/23, re intubated 05/27/17 Delirium/metabolic encephalopathy Embolic stroke bilateral occipital lobes, left cerebellar Possible sepsis s/p opacification of left lung due to mucous plugs-improved post bronch ESRD on peritoneal dialysis. History of hypertension. CAD, s/p CALLIE to RCA in Mar COPD History of sleep apnea on CPAP at home History of cerebrovascular accident. Plan: Neuro: MRI brain shows embolic stroke bilateral occipital lobes, left cerebellar. MRA brain and neck unremarkable ROBERT negative for cardiac source of emboli EEG shows encephalopathy no seizures CT brain 05/22- no acute process Pulm: Intubated and placed on mechanical ventilation 05/27 for lack of airway protection and hypoxia Anterior airway with DL Grade 3 view Bronchodilators ( DuoNeb). Mucomyst neb, hydrocortisone 50mg Q12- reduce to 25 q12. Inhaled budesonide s/p bronchoscopy 05/28/2017 large amount of thick mucoid secretions removed from bilateral lower lobe segmental bronchi s/p bronch 05/22 - thick mucoid secretions on left suctioned to clear. Follow up on BAL results Pulm is following- Dr. Hogue. Hold Symbicort Spiriva while intubated. Start weaning trials but generalized weakness will not permit extubation at this time Continue CPAP trials CV: Monitor HR and BP and maintain MAP> 65 mmHg. Echo in February showed EF of 55-60% with no regional wall motion abnormalities. ROBERT negative for cardiac source of emboli 05/29/17 Continue with aspirin, Plavix, Lipitor. : Monitor renal function. I's and O's and avoid nephrotoxins. Nephrology- Dr. Salcedo following , on peritoneal dialysis Lasix 40mg daily IV currently on held GI: On Pepcid 10 mg IV q. 12 hours for GI prophylaxis. Tube feeds with Nepro, resume ID: Continue Zosyn and vancomycin F/u blood and peritoneal fluid cultures-negative to date Monitor for signs of infections( fever and WBC). Follow up on BAL cx 05/28 Endo: SSI with Accu-Chek for glycemic control. Heme: Monitor CBC. GI prophylaxis with Pepcid, DVT prophylaxis with SCDs/ resume heparin sub-Q, DC IV Heparin Lines: Left IJ CVP placed 05/22 CCT Level 3. Continue [facility] care. Initiate vent weaning Patient is critically ill with new embolic strokes delirium and CT chest with evidence of aspiration. Intubated and placed on mechanical ventilation. Discussed with nephrology Dr. Salcedo. Prior to intubation I called and discussed with Mrs. Mcgovern. She requested full CODE STATUS with continued aggressive care. Palliative care consulted to address goals of care-patient overall declining over the last several months. Also explained to me that patient never had documented sz, but due to stroke in March and question of Alfonzo's palsy patient was placed on Kera Physician Angella Augustine MD May 31, 2017 10:39
[2017-05-31] MEDS: HEPARIN SODIUM - SQ 10,000 UNITS/ML VIAL SQ SCH ×2 (10:49→22:16)
--- NOTE | 2017-05-31 12:30 | HHI.NPPN ---
Subjective General Problems: Anemia Renal Failure: Chronic, End Stage Renal Disease Additional Remarks Patient intubated on CPAP trial, awake and following the commands. Review of Systems General General Remarks unable to obtain Objective Data Data 05/31/17 06/01/17 19:00 07:00 Intake Total 100 ml Output Total 731 ml Balance -631 ml IV Total 100 ml Peritoneal Fluid 731 ml Vital Signs Date Time Temp Pulse Resp B/P (MAP) Pulse Ox O2 Delivery O2 Flow Rate FiO2 05/31/17 12:19 98 35 05/31/17 12:00 35 05/31/17 12:00 58 05/31/17 12:00 98.5 58 14 140/63 (88) 100 05/31/17 10:00 60 05/31/17 08:00 35 05/31/17 08:00 100 Mechanical Ventilator 35 05/31/17 08:00 99.0 59 14 132/63 (86) 100 05/31/17 08:00 59 05/31/17 07:37 35 05/31/17 07:37 100 35 05/31/17 06:00 64 05/31/17 04:00 35 05/31/17 04:00 98.6 59 12 112/54 (73) 100 05/31/17 04:00 59 05/31/17 03:33 100 35 05/31/17 02:00 65 05/31/17 00:00 99.4 58 23 118/58 (78) 100 05/31/17 00:00 58 05/31/17 00:00 35 05/30/17 22:11 100 35 05/30/17 22:00 54 05/30/17 20:00 35 05/30/17 20:00 58 05/30/17 20:00 98.8 58 27 113/59 (77) 100 05/30/17 19:43 100 35 05/30/17 19:00 100 Mechanical Ventilator 35 05/30/17 18:00 53 05/30/17 17:00 57 12 102/51 (68) 100 05/30/17 16:00 35 05/30/17 16:00 99.2 60 20 126/58 (80) 100 05/30/17 16:00 60 05/30/17 15:28 100 35 05/30/17 15:00 59 22 124/60 (81) 100 05/30/17 15:00 59 22 124/60 (81) 100 05/30/17 14:00 57 21 115/56 (75) 100 05/30/17 14:00 57 05/30/17 13:00 58 122/58 (79) 100 -: 05/31/17 0412 05/31/17 0412 Tubes & Lines: Tenckhoff Catheter Tubes & Lines Comment NG tube TLC right IJ Physical Exam General Appearance: No Acute Distress Eyes Eye Exam: Pupils Equal Throat Throat Exam: Oral Mucosa [place] & Moist Neck Neck Exam: Neck Supple Pulmonary Resp Exam: Crackles, Rhonchi, Decreased Bases Cardiology CV Exam: Regular, Normal Sinus Rhythm Gastrointestinal/Abdomen GI Exam: Soft Musculoskeletal MS Exam: Joints Intact, Atrophy, Unable to Ambulate Integumentary Skin Exam: Warm, Dry, Intact Extremeties Extremities Exam: No Edema, Pedal Pulses Palpable Neurologic Neuro Exam: Unresponsive, Sedated Assessment/Plan Discussed Condition With: Spouse Assessment Summary: Anemia of CKD, Malnutrition, Hypotension, End Stage Renal Disease Problem List: (1) End stage renal disease ICD Codes: N18.6 - End stage renal disease Status: Chronic Plan: Last admission he had issues with catheter and fluid retention last admission, had catheter manipulated twice. Currently on 9 hr treatment time that includes 4 cycles of 2500 ml with no last fill. We are using 2.5% dextrose PD solution. Continue to hold lasix. Minimal urine output. Avoid IVF administration Continue phoslo and Calcitrol Replace potassium as needed. Monitor phosphorus level periodically. Will continue with PD for now. Patient seen and examine, agree with above. Continue same APD. Weaning as per CCM. Now on CPAP, continue same APD. K is low and replaced, will follow. (2) Bronchial obstruction ICD Codes: J98.09 - Other diseases of bronchus, not elsewhere classified Status: Acute Plan: Patient appears to have redeveloped atelectasis of the left lung. s/p reintubation (3) Hypoxia ICD Codes: R09.02 - Hypoxemia Status: Resolved Plan: See above. (4) Pneumonia ICD Codes: J18.9 - Pneumonia Status: Resolved Plan: Blood cultures have been negative so far On Zosyn lactic acid is elevated (5) Hypertension ICD Codes: I10 - Essential (primary) hypertension Status: Chronic Plan: Antihypertensives on hold. Monitor BP,use pressors if needed for BP support (6) Anemia ICD Codes: D64.9 - Anemia, unspecified Status: Chronic Plan: Given Epogen on 05/23/17 (7) CVA (cerebral vascular accident) ICD Codes: I63.9 - Cerebral infarction, unspecified Plan: ROBERT negative On heparin and ASA, off plavix. Plan Tiffany Ho MD May 31, 2017 12:30
[2017-05-31] MEDS: AZITHROMYCIN 250 MG TAB PO SCH (16:49)
[2017-05-31] MEDS: ATORVASTATIN 80 MG TAB PO SCH (20:06)
[2017-05-31] MEDS: levETIRAcetam 250 MG TAB PO SCH (20:06)
[2017-06-01] VITALS (17 sets, daily range): BP systolic 94–129; BP diastolic 54–61; PULSE 50–68; RESP 17–22; TEMP 97.9–98.7; O2SAT 99–100
[2017-06-01] MEDS: RESP: ALBUTEROL 2.5 MG/IPRATROPIUM 0.5 MG NEB (SCH) NEB ×6 (00:44→22:26)
[2017-06-01] MEDS: PIPERACIL-TAZO 2.25 GM PREMIX 50 ML IV SCH ×3 (01:25→16:38)
[2017-06-01] MEDS: HYDROCORTISONE SOD SUCCINATE 100 MG VIAL IV PUSH SCH (03:24)
[2017-06-01] MEDS: RESP: ACETYLCYSTEINE 20% 30 ML NEB NEB SCH ×4 (03:45→22:26)
--- NOTE | 2017-06-01 04:46 | RADRPT ---
EXAM DATE/TIME: 06/01/2017 04:04 [facility] COMPARISON: CHEST SINGLE AP, May 31, 2017, 5:21. INDICATIONS : Shortness of breath, possible pulmonary disease. MEDICAL HISTORY : Hypertension. Chronic obstructive pulmonary disease. SURGICAL HISTORY : Tonsillectomy. ENCOUNTER: Subsequent ACUITY: 1 week PAIN SCORE: Non-responsive. LOCATION: Bilateral chest FINDINGS: A single view of the chest demonstrates endotracheal tube and nasogastric tube in good position. Left IJ line in superior vena cava. Subsegmental basilar airspace disease. No pneumothorax or significant effusion. CONCLUSION: 1. Support apparatus in good position. Subsegmental basilar airspace disease. Layo Mathews MD on June 01, 2017 at 4:43 Board Certified Radiologist. This report was verified electronically.
[2017-06-01 05:18] LABS: AUTOMATED NEUTROPHIL # 9.4 TH/MM3 (1.8-7.7); BASOPHIL % 0.2 % (0.0-2.0); EOSINOPHIL # 0.1 TH/MM3 (0-0.4); EOSINOPHIL % 0.8 % (0.0-4.0); HEMATOCRIT 31.2 % (39.0-51.0); HEMOGLOBIN 10.6 GM/DL (13.0-17.0); LYMPH % 7.8 % (9.0-44.0); LYMPHOCYTE # 0.9 TH/MM3 (1.0-4.8); MEAN CELL VOLUME 90.9 FL (80.0-100.0); MEAN CORPUSCULAR HEMOGLOBIN 30.9 PG (27.0-34.0); MEAN PLATELET VOLUME 8.7 FL (7.0-11.0); MONOCYTE # 1.3 TH/MM3 (0-0.9); NEUT % 80.2 % (16.0-70.0); PLATELET COUNT 151 TH/MM3 (150-450); RED BLOOD COUNT 3.43 MIL/MM3 (4.50-5.90); RED CELL DISTRIBUTION WIDTH 16.2 % (11.6-17.2); WHITE BLOOD COUNT 11.7 TH/MM3 (4.0-11.0)
[2017-06-01 05:43] LABS: BICARBONATE 25.2 MEQ/L (21.0-32.0); CALCIUM 9.7 MG/DL (8.5-10.1); CREATININE 7.84 MG/DL (0.60-1.30); MAGNESIUM 1.9 MG/DL (1.5-2.5); PHOSPHORUS 1.7 MG/DL (2.5-4.9)
[2017-06-01] MEDS: CALCIUM ACETATE 667 MG CAP NG SCH (08:07)
[2017-06-01] MEDS: CLOPIDOGREL 75 MG TAB PO SCH (08:07)
[2017-06-01] MEDS: ASPIRIN EC 81 MG TABEC PO SCH (08:08)
[2017-06-01] MEDS: LACTOBACILLUS ACIDOPHILUS TAB PO SCH ×3 (08:08→16:38)
[2017-06-01] MEDS: POTASSIUM CHLORIDE 20 MEQ CONTROLLED RELEASE TAB PO SCH (08:08)
[2017-06-01] MEDS: levETIRAcetam 500 MG TAB PO SCH (08:08)
[2017-06-01] MEDS: CALCITRIOL 0.25 MCG CAP PO SCH (08:08)
[2017-06-01] MEDS: SODIUM CHLORIDE 0.9% FLUSH 10 ML FLUSH IV FLUSH SCH (08:09)
[2017-06-01] MEDS: INSULIN ASPART SUPPLEMENTAL SCALE SQ SCH ×4 (08:10→21:00)
[2017-06-01] MEDS: CHLORHEXIDINE 0.12% (ORAL KIT) 15 ML CUP MT SCH ×2 (08:11→20:00)
[2017-06-01] MEDS: DOCUSATE SODIUM 100 MG CAP PO SCH (08:12)
[2017-06-01] MEDS: SENNOSIDES SYRUP 8.8 MG/5 ML CUP PO SCH (08:12)
[2017-06-01] MEDS: TIOTROPIUM BROMIDE 18 MCG INH INH SCH (08:12)
[2017-06-01] MEDS: guaiFENesin SOLUTION 200 MG/10 ML CUP PO SCH (08:33)
--- NOTE | 2017-06-01 08:51 | HHI.CCPN ---
Subjective Remarks/Hospital Course Patient is an 82-year-old male with a past medical history of hypertension, obstructive sleep apnea on CPAP, COPD, CVA, end-stage renal disease on peritoneal dialysis who was admitted under hospitalist service on 05/21/2017 for respiratory distress. He had a chest x-ray on arrival which showed complete opacification of the left hemithorax with left shift of the mediastinum. Subsequently, he had CT chest without contrast which showed collapse of the left lung that appears to be due to extensive debris within the left main stem bronchus extending peripherally. No obvious hilar mass seen. A pleural parenchymal atelectasis or scarring posteriorly in the superior segment of right lower lobe noted as well. The patient was seen by Dr. Hogue from pulmonary service and scheduled to undergo a bronchoscopy. He had an ABG early this morning on a nonrebreather mask which showed acute hypoxemic respiratory failure with a pH of 7.40, CO2 of 37, PaO2 59, saturation 87%. The patient was placed on BiPAP with 100% FIO2 and transferred to [facility]. Critical care medicine was consulted for critical care management. When seen, the patient had a saturation of 90% on 100% FIO2. Due to worsening respiratory status, he was immediately intubated by myself and placed on full mechanical ventilation. Most of the history was obtained from reviewing the medical records. A repeat chest x-ray this morning prior to intubation showed no significant change with complete collapse of the left lung. 05/23 Patient remains intubated, sedated with Fentanyl drip. Required Levophed post intubation now off pressor. Afebrile. s/p bronch yesterday showed thick mucoid secretions/mucous plugs on left suctioned to clear CXR post bronch showed improved aeration on left. 05/24 Patient was extubated yesterday placed on partial non rebreather overnight. Awake and alert. Afebrile. 05/25: Patient remains on partial nonrebreather. Unable to wean remains hypoxic. Intermittently confused oriented to person and somewhat to place 05/26: Patient remains increasingly confused. Possible sepsis and metabolic encephalopathy cannot be ruled out. Check EEG. Broaden antibiotic with Zosyn, vancomycin. Will culture blood and peritoneal fluid. Use as needed Haldol for confusion/agitation. Patient was hypotensive in a.m. improved with IV albumin bolus 05/27: Patient profoundly hypoxemic placed on BiPAP, FiO2 was increased to 90% initially now weaned to 60%. Remains altered hard to arouse. Questionable airway protection, not a candidate for BiPAP. I discussed with his Jolynn Mcgovern who requested everything to be done. Patient was intubated and placed on mechanical ventilation. Will check MRI of brain, neurology consult as appropriate. His airway is anterior, Grade 2-3 view on DL 05/28: Remains intubated sedated. Dr. Brizuela consulted for bilateral occipital and left cerebellar embolic stroke. MRA of the brain and neck ordered, 2D echo also pending. Continue Plavix and aspirin for now. Neuro Dr. Brizuela. Bronchoscopy performed today for bilateral lower lobe atelectasis. Moderate amount of thick secretions removed 05/29: Remains intubated. Just had ROBERT, no cardiac source of emboli found. Status post bronchoscopy yesterday with thick secretions removed bilateral lower lobes. Discussed with Dr. Arizmendi. He recommends continuing aspirin and Plavix if in fact patient had CALLIE in March 2017. 05/30: Patient remains intubated sedation is held. Opens eyes tracks, weakly follows commands upper and lower extremity. Appears more alert. IV Heparin DCd yesterday 05/31: T-max 99.4. Fentanyl infusion placed on hold yesterday. patient awake and responsive CPAP trials tolerated for approximately 10-12 hours yesterday. The pouch was initiated this a.m.. Patient continues to be weak physical therapy initiated occupational therapy initiated. 06/01: Remains intubated off all sedation. Follows commands 4. Chest x-ray improved. Attempt SBT for potential extubation. No significant secretions from ETT Objective Vital Signs Date Time Temp Pulse Resp B/P (MAP) Pulse Ox O2 Delivery O2 Flow Rate FiO2 06/01/17 07:45 35 06/01/17 07:45 100 06/01/17 06:00 58 06/01/17 04:00 98.4 17 94/59 (71) 05/31/17 19:00 Mechanical Ventilator Intake and Output 06/01/17 06/01/17 06/02/17 08:00 16:00 00:00 Intake Total 693 ml Output Total 0 ml Balance 693 ml Result Diagram: 06/01/177 06/01/17 0407 Imaging Last Impressions Chest X-Ray 05/31/17 0600 Signed Impressions: Service Date/Time: Wednesday, May 31, 2017 05:21 - CONCLUSION: Unchanged bibasilar infiltrates. Abhishek Fatima Jr., MD Neck Magnetic Resonance Angiography 05/28/17 0000 Signed Impressions: Service Date/Time: May 12:13 - CONCLUSION: 1. Moderately limited examination due to motion degradation. 2. No significant flow-limiting stenosis demonstrated although portions of the internal carotid arteries and distal vertebral arteries are not sufficiently evaluated. Hunter Daniel MD Head Magnetic Resonance Angiography 05/28/17 0000 Signed Impressions: Service Date/Time: May 12:13 - CONCLUSION: 1. Unremarkable [place] MRA examination. Specifically, no evidence for large vessel occlusion or significant aneurysm. Hunter Daniel MD Chest CT 05/27/17 0000 Signed Impressions: Service Date/Time: Saturday, May 27, 2017 12:16 - CONCLUSION: 1. There is normal aeration of the left upper lobe. However, there is abnormal material within the left lower lobe bronchus with collapse of the left lower lobe. 2. There is a new right lower lobe airspace consolidation and new small left pleural effusion. 3. There is new small volume of free fluid in the upper abdomen. 4. 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 Joe Curry MD Brain MRI 05/27/17 0000 Signed Impressions: Service Date/Time: Saturday, May 27, 2017 11:45 - CONCLUSION: Marked central and cortical atrophy with periventricular white matter changes Minimal focal areas of restricted diffusion in both occipital lobes and left cerebellar hemisphere Suspicious for embolic ischemic event. Kian Adkins MD FACR Head CT 05/22/17 0000 Signed Impressions: Service Date/Time: Monday, May 22, 2017 12:22 - CONCLUSION: Negative for acute process Kian Adkins MD FACR Abdomen X-Ray 05/22/17 0000 Signed Impressions: Service Date/Time: Monday, May 22, 2017 10:27 - CONCLUSION: No evidence of obstruction. Nasogastric tube across the GE junction. No free air. Kian Adkins MD FACR Last Impressions Head CT 05/22/17 0000 Signed Impressions: Service Date/Time: Monday, May 22, 2017 12:22 - CONCLUSION: Negative for acute process Kian Adkins MD FACR Chest X-Ray 05/22/17 0000 Signed Impressions: Service Date/Time: Monday, May 22, 2017 17:03 - CONCLUSION: 1. Left IJ central line in the SVC junction without pneumothorax. 2. Patchy airspace disease in the left mid to lower lung zones. Hunter Daniel MD Abdomen X-Ray 05/22/17 0000 Signed Impressions: Service Date/Time: Monday, May 22, 2017 10:27 - CONCLUSION: No evidence of obstruction. Nasogastric tube across the GE junction. No free air. Kian Adkins MD FACR Chest CT 05/21/17 0000 Signed Impressions: Service Date/Time: May 16:29 - CONCLUSION: 1. Complete collapse of the left lung appears to be due to extensive debris within the left mainstem bronchus extending peripherally. Bronchoscopy is recommended for further evaluation and possible treatment. 2. The esophagus appears to impinge on the posterior wall of the trachea and may partially obscure the lumen in the upper thorax. 3. No obvious hilar mass lesion although anatomic detail is limited due to the adjacent collapsed lung. This area can be reevaluated after clearing of the left mainstem bronchus and reexpansion of the left lung. 4. Pleural-parenchymal atelectasis or scarring posteriorly in the superior segment of the right lower lobe. Right lung is otherwise clear. 5. Atherosclerotic calcification of the coronary arteries. Calcification of the mitral valve annulus Gelacio Allen MD Objective Remarks GENERAL: Patient is 82 yo lying intubated off sedation SKIN: Warm and dry. HEAD: Normocephalic. EYES: No scleral icterus. No injection or drainage. ENT: Orotracheally intubated NECK: Supple, trachea midline. No JVD or lymphadenopathy. CARDIOVASCULAR: Regular rate and rhythm without murmurs, gallops, or rubs. RESPIRATORY: Breath sounds equal bilaterally, but diminished at the bases. On PSV GASTROINTESTINAL: Abdomen soft, non-tender, nondistended. MUSCULOSKELETAL: No cyanosis, or edema. NEURO: Intubated off sedation, spontaneous eye opening. Follows commands weakly in all 4 extremities A/P Assessment and Plan Assessment: Acute hypoxemic respiratory failure extubated 05/23, re intubated 05/27/17 Delirium/metabolic encephalopathy Embolic stroke bilateral occipital lobes, left cerebellar Possible sepsis s/p opacification of left lung due to mucous plugs-improved post bronch ESRD on peritoneal dialysis. History of hypertension. CAD, s/p CALLIE to RCA in Mar COPD History of sleep apnea on CPAP at home History of cerebrovascular accident. Plan: Neuro: MRI brain shows embolic stroke bilateral occipital lobes, left cerebellar. MRA brain and neck unremarkable ROBERT negative for cardiac source of emboli EEG shows encephalopathy no seizures CT brain 05/22- no acute process Pulm: Intubated and placed on mechanical ventilation 05/27 for lack of airway protection and hypoxia Anterior airway with DL Grade 3 view SBT with possible extubation today Bronchodilators ( DuoNeb). Mucomyst neb, hydrocortisone 25 q12-DC today. Inhaled budesonide s/p bronchoscopy 05/28/2017 large amount of thick mucoid secretions removed from bilateral lower lobe segmental bronchi s/p bronch 05/22 - thick mucoid secretions on left suctioned to clear. Follow up on BAL results-negative to date Pulm is following- Dr. Hogue. Hold Symbicort Spiriva while intubated. CV: Monitor HR and BP and maintain MAP> 65 mmHg. Echo in February showed EF of 55-60% with no regional wall motion abnormalities. ROBERT negative for cardiac source of emboli 05/29/17 Continue with aspirin, Plavix, Lipitor. : Monitor renal function. I's and O's and avoid nephrotoxins. Nephrology- Dr. Salcedo following , on peritoneal dialysis Lasix on hold GI: On Pepcid 10 mg IV q. 12 hours for GI prophylaxis. Tube feeds with Nepro, hold for possible extubation ID: On Zosyn and vancomycin. DC Vanc today. BAL negative >48 hours F/u blood and peritoneal fluid cultures-negative to date Monitor for signs of infections( fever and WBC). Follow up on BAL cx 05/28 Endo: SSI with Accu-Chek for glycemic control. Heme: Monitor CBC. GI prophylaxis with Pepcid, DVT prophylaxis with SCDs/ heparin sub-Q Lines: Left IJ CVP placed 05/22 CCT Level 3. Continue [facility] care. Initiate vent weaning Patient is critically ill with new embolic strokes delirium and CT chest with evidence of aspiration. Intubated and placed on mechanical ventilation. Discussed with nephrology Dr. Salcedo. Prior to intubation I called and discussed with Mrs. Mcgovern. She requested full CODE STATUS with continued aggressive care. Palliative care following to address goals of care-patient overall declining over the last several months. Also explained to me that patient never had documented sz, but due to stroke in March and question of Alfonzo's palsy patient was placed on Santiago Santiago MD Jun 01, 2017 08:51
[2017-06-01] MEDS ORDERED: POTASSIUM CHLORIDE 25 MEQ EFFERVESCENT TAB PO ONE (09:00)
[2017-06-01] MEDS ORDERED: ALTEPLASE RECOMBINANT 2 MG VIAL INTRACATH ONE (09:00)
[2017-06-01] MEDS ORDERED: POTASSIUM PHOSPHATE/SODIUM PHOSPHATE 250 MG TAB PO ONE (09:15)
--- NOTE | 2017-06-01 11:09 | ECHRPT ---
Indication: CVA/TIA CONCLUSIONS The left ventricular systolic function is normal with an estimated ejection fraction in the range of 55-60%. Normal left atrial appendage size with no evidence of thrombus formation. Descending aorta/arch with no evidence of cause for embolic CVA. Trace mitral valve regurgitation. Trace aortic valve regurgitation. Ttrace tricuspid valve regurgitation. BP: / HR: Rhythm: Sinus Technical Quality:Good Medications Complications Proc. Components Patient intubated on sedation. FINDINGS LEFT VENTRICLE Normal left ventricular size. The left ventricular systolic function is normal with an estimated ejection fraction in the range of 55-60%. RIGHT VENTRICLE Grossly normal appearing LEFT ATRIUM The left atrial size is normal. RIGHT ATRIUM The right atrial size is normal. ATRIAL APPENDAGES Normal left atrial appendage size with no evidence of thrombus formation. ATRIAL SEPTUM No atrial level shunt is demonstrated by color flow Doppler or agitated saline imaging. AORTA Descending aorta/arch with no evidence of cause for embolic CVA. MITRAL VALVE Structurally normal mitral valve. Trace mitral valve regurgitation. No mitral valve stenosis. AORTIC VALVE Trileaflet aortic valve. Trace aortic valve regurgitation. No aortic valve stenosis. TRICUSPID VALVE Structurally normal tricuspid valve. There is trace tricuspid valve regurgitation. No tricuspid valv e stenosis. VESSELS Grossly normal. No pulmonary valve regurgitation. Elliot Arizmendi DO (Electronically Signed) Final Date:01 June 2017 11:07
--- NOTE | 2017-06-01 11:27 | HHI.NPPN ---
Subjective General Problems: Anemia Renal Failure: Chronic, End Stage Renal Disease Interval History He was extubated early this morning. On nasal cannula. Awake, answers some questions but slow to respond and is confused on recent events. Hypokalemic today. (Jania Gallagher) Review of Systems Respiratory Lungs: SOB, Cough (Jania Gallagher) Cardiovascular Cardiac: Edema (Jania Gallagher) Objective Data Data Vital Signs Date Time Temp Pulse Resp B/P (MAP) Pulse Ox O2 Delivery O2 Flow Rate FiO2 06/01/17 09:41 99 Nasal Cannula 3 06/01/17 09:41 99 Nasal Cannula 3.00 06/01/17 08:00 35 06/01/17 08:00 62 06/01/17 08:00 98.7 62 18 129/61 (83) 99 06/01/17 07:45 Nasal Cannula 35 06/01/17 07:45 100 35 06/01/17 06:00 58 06/01/17 04:00 35 06/01/17 04:00 98.4 63 17 94/59 (71) 100 06/01/17 04:00 64 06/01/17 03:49 100 35 06/01/17 02:00 58 06/01/17 00:44 100 35 06/01/17 00:00 35 06/01/17 00:00 57 06/01/17 00:00 98.1 57 19 105/54 (71) 100 05/31/17 22:00 55 05/31/17 21:03 99 35 05/31/17 20:00 35 05/31/17 20:00 98.3 54 18 103/51 (68) 100 05/31/17 20:00 54 05/31/17 19:00 100 Mechanical Ventilator 35 05/31/17 18:00 56 05/31/17 16:23 100 35 05/31/17 16:00 56 05/31/17 16:00 35 05/31/17 16:00 56 15 108/53 (71) 100 05/31/17 14:00 59 05/31/17 12:19 98 35 05/31/17 12:00 35 05/31/17 12:00 58 05/31/17 12:00 98.5 58 14 140/63 (88) 100 (Jania Gallagher) -: 06/01/177 06/01/17 040 Imaging Last 72 hours Impressions Chest X-Ray 06/01/17599 Signed Impressions: Service Date/Time: Thursday, June 01, 2017 04:04 - CONCLUSION: 1. Support apparatus in good position. Subsegmental basilar airspace disease. Layo Mathews MD Chest X-Ray 05/31/17599 Signed Impressions: Service Date/Time: Wednesday, May 31, 2017 05:21 - CONCLUSION: Unchanged bibasilar infiltrates. Abhishek Fatima Jr., MD Tubes & Lines: Tenckhoff Catheter (Jania Gallagher BJerel HENNINGP) Physical Exam General Appearance: Well Developed, No Acute Distress Appearance Remarks chronically ill appearing (Jania GallagherP) Eyes Eye Exam: Pupils Equal, Pupils Reactive (Jania Gallagher BJerel DIRECTOR OF CARDIOLOGY SERVICE LINE) Throat Throat Exam: Oral Mucosa [place] & Moist (Jania Gallagher BJerel DIRECTOR OF CARDIOLOGY SERVICE LINE) Neck Neck Exam: Neck Supple (Jania Gallagher DIRECTOR OF CARDIOLOGY SERVICE LINE) Pulmonary Resp Exam: No Distress, Crackles, Rhonchi, Decreased Bases (Jania Gallagher B. DIRECTOR OF CARDIOLOGY SERVICE LINE) Cardiology CV Exam: Regular, Normal Sinus Rhythm, Good Perfusion (Jania Gallagher B. DIRECTOR OF CARDIOLOGY SERVICE LINE) Gastrointestinal/Abdomen GI Exam: Soft (Jania Gallagher BJerel DIRECTOR OF CARDIOLOGY SERVICE LINE) Musculoskeletal MS Exam: Joints Intact, Atrophy, Unable to Ambulate (Jania Gallagher B. DIRECTOR OF CARDIOLOGY SERVICE LINE) Integumentary Skin Exam: Warm, Dry, Intact Skin Remarks multiple abrasions/scars to lower extremities (Jania Gallagher DIRECTOR OF CARDIOLOGY SERVICE LINE) Extremeties Extremities Exam: No Edema, Pedal Pulses Palpable (Jania Gallagher B. DIRECTOR OF CARDIOLOGY SERVICE LINE) Neurologic Neuro Exam: Unresponsive, Sedated (Jania Gallagher BJerel SCHAEFER) Assessment/Plan Discussed Condition With: Spouse Assessment Summary: Anemia of CKD, Malnutrition, Hypotension, End Stage Renal Disease Problem List: (1) End stage renal disease ICD Codes: N18.6 - End stage renal disease Status: Chronic Plan: Last admission he had issues with catheter and fluid retention last admission, had catheter manipulated twice. Currently on 9 hr treatment time that includes 4 cycles of 2500 ml with no last fill. We are using 2.5% dextrose PD solution. Hold diuretics Avoid IVF administration Hold phosphorus binders; replace potassium and phosphorus, follow labs. Intermittent monitor renal profile. Avoid IVF. (2) Bronchial obstruction ICD Codes: J98.09 - Other diseases of bronchus, not elsewhere classified Status: Acute Plan: He had redeveloped atelectasis of the left lung. S/p bronch. s/p extubation Pulmonary toilet (3) Hypoxia ICD Codes: R09.02 - Hypoxemia Status: Resolved Plan: Improved, monitor pulmonary status (4) Pneumonia ICD Codes: J18.9 - Pneumonia Status: Resolved Plan: Blood cultures have been negative so far On Zosyn (5) Hypertension ICD Codes: I10 - Essential (primary) hypertension Status: Chronic Plan: BP improved Resume antihypertensives if needed (6) Anemia ICD Codes: D64.9 - Anemia, unspecified Status: Chronic Plan: Given Epogen on 05/23/17 (7) CVA (cerebral vascular accident) ICD Codes: I63.9 - Cerebral infarction, unspecified Plan: ROBERT negative On heparin and ASA, off plavix. Plan (Jania Gallagher) Plan patient was seen and examined. Agree with above assessment and plan. (Gabriel Salcedo MD) Jania Gallagher Jun 01, 2017 11:27 Gabriel Salcedo MD Jun 02, 2017 10:12
[2017-06-01] MEDS: HEPARIN SODIUM - SQ 10,000 UNITS/ML VIAL SQ SCH (11:38)
[2017-06-01] MEDS: AZITHROMYCIN 250 MG TAB PO SCH (16:09)
--- NOTE | 2017-06-01 16:12 | HHI.HCPN ---
Reason for visit a. To assist with evaluation and management of symptoms including: Encephalopathy, dyspnea, debility b. To assist medical decision maker(s) with: better understanding of current medical conditions; weighing benefits/burdens of medical treatment options; making medical treatment decisions. . Subjective/Interval History Follow-up visit to reassess for symptom management of encephalopathy, debility and dyspnea. Patient seen and assessed in [facility], room 509. Patient's , children and sister -in-law are at bedside. Oxygen saturations status post extubation this morning. Follow-up chest x-ray improved, showing subsegmental basilar airspace disease. No pneumothorax or significant effusion. Patient is awake, lethargic. He is able to answer some simple questions but is slow to respond. He is confused on recent events and the circumstances of his hospitalization. EEG shows encephalopathy but no seizures. CT brain 05/22/17 showed no acute process. 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 MRA brain and neck unremarkable. MRA brain showed no evidence of large vessel occlusion or significant aneurysm; MRA neck revealed no significant flow- limiting stenosis although portions of the internal carotid arteries and distal vertebral arteries are not sufficiently evaluated. ROBERT negative for cardiac source of emboli. On heparin 5000 units every 12 hours SQ. Hypokalemic this morning with a potassium of 2.9. Patient receiving peritoneal dialysis nightly (9 hours). Holding phosphorus binders; replacing potassium and phosphorus. Patient past swallow evaluation this afternoon. Recommendations for pured diet with thin liquids. . Family/friend interactions Met with patient's family at bedside and privately in the hallway. Also spoke to patient's daughter, Brenda, in the family conference room. Update provided on the patient's current clinical condition. Patient remains critically ill and is high risk for ongoing complications and setbacks. Patient's verbalizing ongoing aggressive goals stating her is "a fighter and won' t give up easily." . Advance Directives Living Will: Copy in medical record Health Care Surrogate: Copy in medical record Advance Directive Specifics Date completed: 04/07/2017?? . Health Care Surrogate(s): HCS form completed 04/07 without year included names patient's (Jolynn) as the healthcare decision-maker. Per [place] statutes, in the absence of written advanced directives healthcare proxy decision making would fall to the patient' s . . Documented care wishes: Patient completed a living will on 04/07 with no year included. It states if the patient were to be diagnosed with a terminal condition, ES condition or be in a persistent vegetative states with no reasonable chance of recovery he would would want life prolonging procedures withheld or withdrawn and be allowed to pass peacefully and naturally with only interventions or procedures that would provide comfort. However, patient's states that this is not what patient would want. She does not think the patient understood what he was "saying" when he signed the document. . Objective Vital Signs Date Time Temp Pulse Resp B/P (MAP) Pulse Ox O2 Delivery O2 Flow Rate FiO2 06/01/17 14:00 56 06/01/17 14:00 98.0 56 20 125/57 (79) 100 06/01/17 12:00 58 06/01/17 12:00 98.2 58 21 122/57 (78) 100 06/01/17 10:00 58 06/01/17 09:41 99 Nasal Cannula 3 06/01/17 09:41 99 Nasal Cannula 3.00 06/01/17 08:00 35 06/01/17 08:00 62 06/01/17 08:00 98.7 62 18 129/61 (83) 99 06/01/17 07:45 Nasal Cannula 35 06/01/17 07:45 100 35 06/01/17 07:00 100 Mechanical Ventilator 35 06/01/17 06:00 58 06/01/17 04:00 35 06/01/17 04:00 98.4 63 17 94/59 (71) 100 06/01/17 04:00 64 06/01/17 03:49 100 35 06/01/17 02:00 58 06/01/17 00:44 100 35 06/01/17 00:00 35 06/01/17 00:00 57 06/01/17 00:00 98.1 57 19 105/54 (71) 100 05/31/17 22:00 55 05/31/17 21:03 99 35 05/31/17 20:00 35 05/31/17 20:00 98.3 54 18 103/51 (68) 100 05/31/17 20:00 54 05/31/17 19:00 100 Mechanical Ventilator 35 05/31/17 18:00 56 05/31/17 16:23 100 35 05/31/17 16:00 56 05/31/17 16:00 35 05/31/17 16:00 56 15 108/53 (71) 100 Intake & Output 06/01/17 06/01/17 07:00 19:00 Intake Total 693 ml Output Total 0 ml Balance 693 ml IV Total 50 ml Tube Feeding 523 ml Other 120 ml Output Urine Total 0 ml # Bowel Movements 1 . Physical Exam CONSTITUTIONAL/GENERAL: This is an elderly male patient s/p extubation in no acute distress TUBES/LINES/DRAINS: PIV, CVL, urinary catheter, nasal cannula, OGT SKIN: No jaundice, rashes, or lesions. Ecchymoses on upper extremities. No wounds seen anteriorly. Skin temperature appropriate. Not diaphoretic. HEAD: Atraumatic. Normocephalic. EYES: Pupils equal and round and reactive. Extraocular motions intact. No scleral icterus. No injection or drainage. Fundi not examined. ENT: Nose without bleeding or purulent drainage. Oral mucosa dry NECK: Trachea midline. Supple, nontender. No palpable thyroid enlargement or nodularity. CARDIOVASCULAR: Regular rate and rhythm without murmurs, gallops, or rubs. No JVD. Peripheral pulses symmetric. RESPIRATORY/CHEST: Breath sounds diminished status post extubation. No wheezing , rhonchi or rales. GASTROINTESTINAL: Abdomen soft, non-tender, nondistended. No hepato-splenomegaly , or palpable masses. No guarding. Bowel sounds present. GENITOURINARY: Without palpable bladder distension. MUSCULOSKELETAL: Extremities without clubbing, cyanosis, or edema. No mottling or clubbing. Muscle atrophy and nonhealing wounds are noted to lower extremities bilaterally. Upper extremities swollen and weeping. LYMPHATICS: No palpable cervical or supraclavicular adenopathy. NEUROLOGICAL: Awake, lethargic. Able to answer some questions but is slow to respond; does not recollect the circumstances of hospitalization or recent events. PSYCHIATRIC: No obvious anxiety/depression. No apparent hallucinations or other psychotic thought process. . Diagnostic Tests Laboratory Laboratory Tests Test 05/31/17 04:12 05/31/17 12:36 06/01/17 04:07 06/01/17 09:14 White Blood Count 11.2 TH/MM3 (4.0-11.0) 11.7 TH/MM3 (4.0-11.0) Red Blood Count 3.16 MIL/MM3 (4.50-5.90) 3.43 MIL/MM3 (4.50-5.90) Hemoglobin 9.8 GM/DL (13.0-17.0) 10.6 GM/DL (13.0-17.0) Hematocrit 28.8 % (39.0-51.0) 31.2 % (39.0-51.0) Mean Corpuscular Volume 90.9 FL (80.0-100.0) 90.9 FL (80.0-100.0) Mean Corpuscular Hemoglobin 31.1 PG (27.0-34.0) 30.9 PG (27.0-34.0) Mean Corpuscular Hemoglobin Concent 34.2 % (32.0-36.0) 34.0 % (32.0-36.0) Red Cell Distribution Width 15.7 % (11.6-17.2) 16.2 % (11.6-17.2) Platelet Count 151 TH/MM3 (150-450) 151 TH/MM3 (150-450) Mean Platelet Volume 7.7 FL (7.0-11.0) 8.7 FL (7.0-11.0) Neutrophils (%) (Auto) 79.3 % (16.0-70.0) 80.2 % (16.0-70.0) Lymphocytes (%) (Auto) 8.4 % (9.0-44.0) 7.8 % (9.0-44.0) Monocytes (%) (Auto) 11.8 % (0.0-8.0) 11.0 % (0.0-8.0) Eosinophils (%) (Auto) 0.4 % (0.0-4.0) 0.8 % (0.0-4.0) Basophils (%) (Auto) 0.1 % (0.0-2.0) 0.2 % (0.0-2.0) Neutrophils # (Auto) 8.9 TH/MM3 (1.8-7.7) 9.4 TH/MM3 (1.8-7.7) Lymphocytes # (Auto) 0.9 TH/MM3 (1.0-4.8) 0.9 TH/MM3 (1.0-4.8) Monocytes # (Auto) 1.3 TH/MM3 (0-0.9) 1.3 TH/MM3 (0-0.9) Eosinophils # (Auto) 0.0 TH/MM3 (0-0.4) 0.1 TH/MM3 (0-0.4) Basophils # (Auto) 0.0 TH/MM3 (0-0.2) 0.0 TH/MM3 (0-0.2) CBC Comment AUTO DIFF AUTO DIFF Differential Total Cells Counted 100 Neutrophils % (Manual) 85 % (16-70) Lymphocytes % 8 % (9-44) Monocytes % 6 % (0-8) Neutrophils # (Manual) 9.6 TH/MM3 (1.8-7.7) Metamyelocytes 1 % (0-1) Differential Comment FINAL DIFF MANUAL AUTO DIFF CONFIRMED Platelet Estimate LOW (NORMAL) Platelet Morphology Comment NORMAL (NORMAL) Red Cell Morphology Comment NORMAL (NORMAL) Blood Urea Nitrogen 51 MG/DL (7-18) 53 MG/DL (7-18) Creatinine 8.18 MG/DL (0.60-1.30) 7.84 MG/DL (0.60-1.30) Random Glucose 103 MG/DL (74-106) 106 MG/DL (74-106) Total Protein 5.9 GM/DL (6.4-8.2) Albumin 2.4 GM/DL (3.4-5.0) Calcium Level 9.5 MG/DL (8.5-10.1) 9.7 MG/DL (8.5-10.1) Magnesium Level 1.9 MG/DL (1.5-2.5) 1.9 MG/DL (1.5-2.5) Alkaline Phosphatase 103 U/L (45-117) Aspartate Amino Transf (AST/SGOT) 20 U/L (15-37) Alanine Aminotransferase (ALT/SGPT) 23 U/L (12-78) Total Bilirubin 0.7 MG/DL (0.2-1.0) Sodium Level 139 MEQ/L (136-145) 139 MEQ/L (136-145) Potassium Level 2.7 MEQ/L (3.5-5.1) 3.2 MEQ/L (3.5-5.1) 2.9 MEQ/L (3.5-5.1) Chloride Level 97 MEQ/L (98-107) 97 MEQ/L (98-107) Carbon Dioxide Level 25.5 MEQ/L (21.0-32.0) 25.2 MEQ/L (21.0-32.0) Anion Gap 17 MEQ/L (5-15) 17 MEQ/L (5-15) Estimat Glomerular Filtration Rate 6 ML/MIN (>89) 7 ML/MIN (>89) Phosphorus Level 1.7 MG/DL (2.5-4.9) Blood Gas Puncture Site RT RADIAL Blood Gas Patient Temperature 98.6 Blood Gas HCO3 27 mmol/L (22-26) Blood Gas Base Excess 3.2 mmol/L (-2-2) Blood Gas Oxygen Saturation 97 % (90-100) Arterial Blood pH 7.47 (7.380-7.420) Arterial Blood Partial Pressure CO2 38 mmHg (38-42) Arterial Blood Partial Pressure O2 135 mmHg (61-120) Arterial Blood Oxygen Content 14.0 Vol % (12.0-20.0) Arterial Blood Carboxyhemoglobin 0.7 % (0-4) Arterial Blood Methemoglobin 1.3 % (0-2) Blood Gas Hemoglobin 10.1 G/DL (12.0-16.0) Oxygen Delivery Device VENTILATOR Blood Gas Ventilator Setting CPAP5/5PS Blood Gas Inspired Oxygen 35 % . Result Diagram: 06/01/1740606/01/17406 Imaging Last 72 hours Impressions Chest X-Ray 06/01/17599 Signed Impressions: Service Date/Time: Thursday, June 01, 2017 04:04 - CONCLUSION: 1. Support apparatus in good position. Subsegmental basilar airspace disease. Layo Mathews MD Chest X-Ray 05/31/17599 Signed Impressions: Service Date/Time: Wednesday, May 31, 2017 05:21 - CONCLUSION: Unchanged bibasilar infiltrates. Abhishek Fatima Jr., MD . Procedures 05/22/2017: Left IJ CVL placed 05/22/2017: Intubation 05/23/2017: Extubation 05/27/2017: Reintubation 06/01/2017: Extubation . Assessment and Plan Disease Oriented Problem List: (1) Troponin level elevated (2) Elevated CK (3) Elevated brain natriuretic peptide (BNP) level (4) Hyperlipidemia (5) Hypertension (6) NSTEMI (non-ST elevated myocardial infarction) (7) Peritoneal dialysis catheter dysfunction (8) Acute on chronic kidney failure (9) COPD (chronic obstructive pulmonary disease) (10) CHF (congestive heart failure) (11) Seizures (12) Lacunar infarct, acute (13) C. difficile colitis (14) Bronchial obstruction (15) Anemia (16) Pneumonia Symptom Scale: (1) Encephalopathy 0-10 Scale: Unable to quantify (2) Dyspnea 0-10 Scale: Unable to quantify (3) Debility 0-10 Scale: Unable to quantify Pertinent Non-Medical Issues Psychosocial:Patient is originally from the [place]. He is an only child. His mother during childbirth and his father at the age of 50 from an [place]. He has been to his for approximately 57 years. They moved to [place] 44 years ago. They have 2 adult children, 1 daughter and 1 son. 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 Spiritual: Rastafarian pauline Legal:Decision making: HCS form completed 04/07 without year included names patient's (Jolynn) as the healthcare decision-maker. Per [place] statutes, in the absence of written advanced directives healthcare proxy decision making would fall to the patient's . Ethical issues impacting care: No known ethical issues impacting care at this time. . Important Contacts Jolynn Mcgovern, spouse: [phone] . Prognosis Patient is an 82-year-old male with multiple comorbidities who has exhibited an acute decline over the past 6 months. Patient is currently requiring ventilator support secondary to respiratory failure and cognitive deficits. MRI on 2017 suspicious for embolic ischemic events. Patient is high risk for ongoing decline and complications. . Code Status: Full Code Plan * FULL CODE * Decision making: HCS form completed 04/07 without year included names patient' s (Jolynn) as the healthcare decision-maker. Per [place] statutes, in the absence of written advanced directives healthcare proxy decision making would fall to the patient's . * Patient completed a living will on 04/07 with no year included. It states if the patient were to be diagnosed with a terminal condition, ES condition or be in a persistent vegetative states with no reasonable chance of recovery he would would want life prolonging procedures withheld or withdrawn and be allowed to pass peacefully and naturally with only interventions or procedures that would provide comfort. However, patient's states that this is not what patient would want. She does not think the patient understood what he was "saying" when he signed the document. * AGGRESSIVE GOALS * Met with patient's family at bedside and privately in the hallway. Also spoke to patient's daughter, Brenda, in the family conference room. Update provided on the patient's current clinical condition. Patient remains critically ill and is high risk for ongoing complications and setbacks. Patient 's verbalizing ongoing aggressive goals stating her is "a fighter and won't give up easily." * Discussed patient/family's current medical treatment goals with bedside nurse (Lisandro) and phone banker (Dr. Diaz). * Symptom management: == Dyspnea: Patient presented to ED for evaluation of shortness of breath and hypoxemic episode. Status post intubation and bronchoscopy on 05/27/2017 secondary to respiratory distress and questionable airway protection. Patient was medically extubated 06/01/17. Follow-up chest x-ray improved, showing subsegmental basilar airspace disease. No pneumothorax or significant Effusion. == Debility: Patient has experienced an acute decline in the past several months secondary to recent stroke with associated seizures and NSTEMI in 2017. Patient received 4 weeks of rehab at [facility] for rehabilitation; he was then transferred to a shelter facility for additional therapy. Upon discharge [facility] on 05/05/17, the patient was total assist for mobility and ADLs; he was tolerating a regular consistency diet with thin liquids although he did require assistance and supervision during mealtimes. Patient remains significantly debilitated and will likely never return to his previous functioning level. == Encephalopathy: Patient having progressively increased encephalopathy, possibly multifactorial. EEG was suggestive of moderately severe, diffuse disturbance of cerebral function, probably metabolic in nature. Neurology, Dr. 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 MRA brain showed no evidence of large vessel occlusion or significant aneurysm; MRA neck revealed no significant flow-limiting stenosis although portions of the internal carotid arteries and distal vertebral arteries are not sufficiently evaluated. Awake, lethargic today. Patient responds to some simple questions slowly; no recollection hospitalization or recent events. * Palliative care will continue to follow this patient throughout his hospitalization to establish trust, assist with symptom management and clarification of medical treatment goals. . Attestation To help prompt me to consider important information that might be impacting today's encounter and assessment, information from prior notes written by myself or my colleagues may have been "brought forward" into today's note. My signature on this note, however, is an attestation that I personally performed the exam, history, and/or decision-making noted today, and, unless otherwise indicated, the interactions with patient, family, and staff as well as the review of records all occurred today. I also attest that the listed assessment and stated plan reflect my best clinical judgment today based on the combination of historical information, prior notes, and today's exam/ interactions. When time spent is documented, it refers only to time spent today by the signer, or if indicated, combined time spent today by collaborating physician/nurse practitioner. . Dayna Henson Jun 01, 2017 16:12
[2017-06-01 16:50] LABS: PHOSPHORUS 2.7 MG/DL (2.5-4.9)
[2017-06-02] VITALS (14 sets, daily range): BP systolic 105–143; BP diastolic 52–67; PULSE 49–63; RESP 18–20; TEMP 97.8–98.8; O2SAT 96–100
[2017-06-02] MEDS: PIPERACIL-TAZO 2.25 GM PREMIX 50 ML IV SCH ×3 (02:00→16:48)
--- NOTE | 2017-06-02 04:23 | RADRPT ---
EXAM DATE/TIME: 06/02/2017 03:11 [facility] COMPARISON: CHEST SINGLE AP, June 01, 2017, 4:04. INDICATIONS : Short of breath. MEDICAL HISTORY : Hypertension. Chronic obstructive pulmonary disease. SURGICAL HISTORY : Tonsillectomy. ENCOUNTER: Subsequent ACUITY: 1 week PAIN SCORE: 0/10 LOCATION: Bilateral chest FINDINGS: A single view of the chest demonstrates cardiomegaly. Previous endotracheal tube and nasogastric tube have been removed. Slight increase in basilar airspace disease since June 01. Left central line tip in superior vena cava. CONCLUSION: 1. Interval extubation and removal of NG tube with slight increase in basilar airspace disease. Layo Mathews MD on June 02, 2017 at 4:20 Board Certified Radiologist. This report was verified electronically.
[2017-06-02] MEDS: RESP: ALBUTEROL 2.5 MG/IPRATROPIUM 0.5 MG NEB (SCH) NEB ×4 (05:05→22:23)
[2017-06-02] MEDS: RESP: ACETYLCYSTEINE 20% 30 ML NEB NEB SCH ×4 (05:05→22:23)
[2017-06-02] MEDS: ATORVASTATIN 80 MG TAB PO SCH ×2 (05:14→23:05)
[2017-06-02] MEDS: guaiFENesin SOLUTION 200 MG/10 ML CUP PO SCH ×3 (05:14→23:05)
[2017-06-02] MEDS: levETIRAcetam 250 MG TAB PO SCH ×2 (05:15→23:05)
[2017-06-02] MEDS: SODIUM CHLORIDE 0.9% FLUSH 10 ML FLUSH IV FLUSH SCH ×3 (05:15→21:00)
[2017-06-02] MEDS: DOCUSATE SODIUM 100 MG CAP PO SCH ×3 (05:15→23:05)
[2017-06-02] MEDS: HEPARIN SODIUM - SQ 10,000 UNITS/ML VIAL SQ SCH ×3 (05:15→23:05)
[2017-06-02 05:26] LABS: AUTOMATED NEUTROPHIL # 8.5 TH/MM3 (1.8-7.7); BASOPHIL % 0.3 % (0.0-2.0); EOSINOPHIL # 0.4 TH/MM3 (0-0.4); HEMATOCRIT 30.2 % (39.0-51.0); HEMOGLOBIN 10.1 GM/DL (13.0-17.0); LYMPH % 10.3 % (9.0-44.0); LYMPHOCYTE # 1.1 TH/MM3 (1.0-4.8); MEAN CELL VOLUME 91.9 FL (80.0-100.0); MEAN CORPUSCULAR HEMOGLOBIN 30.8 PG (27.0-34.0); MEAN CORPUSCULAR HGB CONC 33.5 % (32.0-36.0); MEAN PLATELET VOLUME 8.5 FL (7.0-11.0); MONO % 8.3 % (0.0-8.0); MONOCYTE # 0.9 TH/MM3 (0-0.9); NEUT % 77.1 % (16.0-70.0); PLATELET COUNT 115 TH/MM3 (150-450); RED BLOOD COUNT 3.29 MIL/MM3 (4.50-5.90); RED CELL DISTRIBUTION WIDTH 16.6 % (11.6-17.2)
[2017-06-02 05:42] LABS: ALBUMIN 2.3 GM/DL (3.4-5.0); AST (GOT) 24 U/L (15-37); BICARBONATE 28.4 MEQ/L (21.0-32.0); BLOOD UREA NITROGEN 52 MG/DL (7-18); CALCIUM 9.2 MG/DL (8.5-10.1); CHLORIDE 98 MEQ/L (98-107); CREATININE 8.13 MG/DL (0.60-1.30); GLOMERULAR FILTRATION RATE 6 ML/MIN (>89); GLUCOSE,RANDOM 126 MG/DL (74-106); SODIUM (NA) 139 MEQ/L (136-145)
[2017-06-02 05:43] LABS: ALT (GPT) 25 U/L (12-78)
[2017-06-02 05:45] LABS: ALKALINE PHOSPHATASE 65 U/L (45-117); TOTAL BILIRUBIN ADULT 0.8 MG/DL (0.2-1.0); TOTAL PROTEIN 5.8 GM/DL (6.4-8.2)
[2017-06-02] MEDS: CHLORHEXIDINE 0.12% (ORAL KIT) 15 ML CUP MT SCH (08:00)
[2017-06-02] MEDS: INSULIN ASPART SUPPLEMENTAL SCALE SQ SCH ×4 (08:00→21:00)
[2017-06-02] MEDS: LACTOBACILLUS ACIDOPHILUS TAB PO SCH ×3 (08:01→16:48)
[2017-06-02] MEDS: CALCITRIOL 0.25 MCG CAP PO SCH (08:01)
[2017-06-02] MEDS: POTASSIUM CHLORIDE 20 MEQ CONTROLLED RELEASE TAB PO SCH (08:01)
[2017-06-02] MEDS: levETIRAcetam 500 MG TAB PO SCH (08:03)
[2017-06-02] MEDS: CLOPIDOGREL 75 MG TAB PO SCH (08:05)
[2017-06-02] MEDS: ASPIRIN EC 81 MG TABEC PO SCH (08:05)
[2017-06-02] MEDS: SENNOSIDES SYRUP 8.8 MG/5 ML CUP PO SCH (09:00)
--- NOTE | 2017-06-02 09:49 | HHI.CCPN ---
Subjective Remarks/Hospital Course Patient is an 82-year-old male with a past medical history of hypertension, obstructive sleep apnea on CPAP, COPD, CVA, end-stage renal disease on peritoneal dialysis who was admitted under hospitalist service on 05/21/2017 for respiratory distress. He had a chest x-ray on arrival which showed complete opacification of the left hemithorax with left shift of the mediastinum. Subsequently, he had CT chest without contrast which showed collapse of the left lung that appears to be due to extensive debris within the left main stem bronchus extending peripherally. No obvious hilar mass seen. A pleural parenchymal atelectasis or scarring posteriorly in the superior segment of right lower lobe noted as well. The patient was seen by Dr. Hogue from pulmonary service and scheduled to undergo a bronchoscopy. He had an ABG early this morning on a nonrebreather mask which showed acute hypoxemic respiratory failure with a pH of 7.40, CO2 of 37, PaO2 59, saturation 87%. The patient was placed on BiPAP with 100% FIO2 and [place] [facility] [place] Critical care medicine was consulted for critical care management. When seen, the patient had a saturation of 90% on 100% FIO2. Due to worsening respiratory status, he was immediately intubated by myself and placed on full mechanical ventilation. Most of the history was obtained from reviewing the medical records. A repeat chest x-ray this morning prior to intubation showed no significant change with complete collapse of the left lung. 05/23 Patient remains intubated, sedated with Fentanyl drip. Required Levophed post intubation now off pressor. Afebrile. s/p bronch yesterday showed thick mucoid secretions/mucous plugs on left suctioned to clear CXR post bronch showed improved aeration on left. 05/24 Patient was extubated yesterday placed on partial non rebreather overnight. Awake and alert. Afebrile. 05/25: Patient remains on partial nonrebreather. Unable to wean remains hypoxic. Intermittently confused oriented to person and somewhat to place 05/26: Patient remains increasingly confused. Possible sepsis and metabolic encephalopathy cannot be ruled out. Check EEG. Broaden antibiotic with Zosyn, vancomycin. Will culture blood and peritoneal fluid. Use as needed Haldol for confusion/agitation. Patient was hypotensive in a.m. improved with IV albumin bolus 05/27: Patient profoundly hypoxemic placed on BiPAP, FiO2 was increased to 90% initially now weaned to 60%. Remains altered hard to arouse. Questionable airway protection, not a candidate for BiPAP. I discussed with his Jolnyn Mcgovern who requested everything to be done. Patient was intubated and placed on mechanical ventilation. Will check MRI of brain, neurology consult as appropriate. His airway is anterior, Grade 2-3 view on DL 05/28: Remains intubated sedated. Dr. Brizuela consulted for bilateral occipital and left cerebellar embolic stroke. MRA of the brain and neck ordered, 2D echo also pending. Continue Plavix and aspirin for now. Neuro Dr. Brizuela. Bronchoscopy performed today for bilateral lower lobe atelectasis. Moderate amount of thick secretions removed 05/29: Remains intubated. Just had ROBERT, no cardiac source of emboli found. Status post bronchoscopy yesterday with thick secretions removed bilateral lower lobes. Discussed with Dr. Arizmendi. He recommends continuing aspirin and Plavix if in fact patient had CALLIE in March 2017. 05/30: Patient remains intubated sedation is held. Opens eyes tracks, weakly follows commands upper and lower extremity. Appears more alert. IV Heparin DCd yesterday 05/31: T-max 99.4. Fentanyl infusion placed on hold yesterday. patient awake and responsive CPAP trials tolerated for approximately 10-12 hours yesterday. The pouch was initiated this a.m.. Patient continues to be weak physical therapy initiated occupational therapy initiated. 06/01: Remains intubated off all sedation. Follows commands 4. Chest x-ray improved. Attempt SBT for potential extubation. No significant secretions from ETT. 06/02: No events over the night. Patient did well postextubation. T-max of 98.2. Patient denies chest pain, shortness of breath, palpitations, or any other complaints. He is awake and interactive. Objective Vital Signs Date Time Temp Pulse Resp B/P (MAP) Pulse Ox O2 Delivery O2 Flow Rate FiO2 06/02/17 08:59 100 Nasal Cannula 2.00 06/02/17 06:00 51 06/02/17 04:00 97.9 18 143/67 (92) 06/01/17 20:00 35 Intake and Output 06/02/17 06/02/17 06/03/17 08:00 16:00 00:00 Intake Total 100 ml Output Total 0 ml Balance 100 ml Result Diagram: 06/02/17 0500 06/02/17 0500 Imaging Last 24 hours Impressions Chest X-Ray 06/02/17 0600 Signed Impressions: Service Date/Time: Friday, June 02, 2017 03:11 - CONCLUSION: 1. Interval extubation and removal of NG tube with slight increase in basilar airspace disease. Layo Mathews MD Last Impressions Chest X-Ray 05/31/17 0600 Signed Impressions: Service Date/Time: Wednesday, May 31, 2017 05:21 - CONCLUSION: Unchanged bibasilar infiltrates. Abhishek Fatima Jr., MD Neck Magnetic Resonance Angiography 05/28/17 0000 Signed Impressions: Service Date/Time: May 12:13 - CONCLUSION: 1. Moderately limited examination due to motion degradation. 2. No significant flow-limiting stenosis demonstrated although portions of the internal carotid arteries and distal vertebral arteries are not sufficiently evaluated. Hunter Daniel MD Head Magnetic Resonance Angiography 05/28/17 0000 Signed Impressions: Service Date/Time: May 12:13 - CONCLUSION: 1. Unremarkable [place] MRA examination. Specifically, no evidence for large vessel occlusion or significant aneurysm. Hunter Daniel MD Chest CT 05/27/17 0000 Signed Impressions: Service Date/Time: Saturday, May 27, 2017 12:16 - CONCLUSION: 1. There is normal aeration of the left upper lobe. However, there is abnormal material within the left lower lobe bronchus with collapse of the left lower lobe. 2. There is a new right lower lobe airspace consolidation and new small left pleural effusion. 3. There is new small volume of free fluid in the upper abdomen. 4. 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 Joe Curry MD Brain MRI 05/27/17 0000 Signed Impressions: Service Date/Time: Saturday, May 27, 2017 11:45 - CONCLUSION: Marked central and cortical atrophy with periventricular white matter changes Minimal focal areas of restricted diffusion in both occipital lobes and left cerebellar hemisphere Suspicious for embolic ischemic event. Kian Adkins MD FACR Head CT 05/22/17 0000 Signed Impressions: Service Date/Time: Monday, May 22, 2017 12:22 - CONCLUSION: Negative for acute process Kian Adkins MD FACR Abdomen X-Ray 05/22/17 Signed Impressions: Service Date/Time: Monday, May 22, 2017 10:27 - CONCLUSION: No evidence of obstruction. Nasogastric tube across the GE junction. No free air. Kian Adkins MD FACR Last Impressions Head CT 05/22/17 Signed Impressions: Service Date/Time: Monday, May 22, 2017 12:22 - CONCLUSION: Negative for acute process Kian Adkins MD FACR Chest X-Ray 05/22/17 0000 Signed Impressions: Service Date/Time: Monday, May 22, 2017 17:03 - CONCLUSION: 1. Left IJ central line in the SVC junction without pneumothorax. 2. Patchy airspace disease in the left mid to lower lung zones. Hunter Daniel MD Abdomen X-Ray 05/22/17 Signed Impressions: Service Date/Time: Monday, May 22, 2017 10:27 - CONCLUSION: No evidence of obstruction. Nasogastric tube across the GE junction. No free air. Kian Adkins MD FACR Chest CT 05/21/17 0000 Signed Impressions: Service Date/Time: May 16:29 - CONCLUSION: 1. Complete collapse of the left lung appears to be due to extensive debris within the left mainstem bronchus extending peripherally. Bronchoscopy is recommended for further evaluation and possible treatment. 2. The esophagus appears to impinge on the posterior wall of the trachea and may partially obscure the lumen in the upper thorax. 3. No obvious hilar mass lesion although anatomic detail is limited due to the adjacent collapsed lung. This area can be reevaluated after clearing of the left mainstem bronchus and reexpansion of the left lung. 4. Pleural-parenchymal atelectasis or scarring posteriorly in the superior segment of the right lower lobe. Right lung is otherwise clear. 5. Atherosclerotic calcification of the coronary arteries. Calcification of the mitral valve annulus Gelacio Allen MD Objective Remarks GENERAL: Elderly gentleman, awake, in no distress, ill-appearing. SKIN: Warm and dry. HEAD: Normocephalic. EYES: Pupils are equal and reactive. No scleral icterus. ENT: MMM, no thrush. NECK: Supple, trachea midline. No JVD or lymphadenopathy. Left-sided IJ CVC - site looks clean. CARDIOVASCULAR: Regular heart sounds, no murmurs. RESPIRATORY: Decreased breath sounds over the left thorax, no wheezes. GASTROINTESTINAL: Abdomen soft, non-tender, nondistended. Bowel sounds present. PVD catheter in place. MUSCULOSKELETAL: Chronic status changes over bilateral lower extremities, tepid to touch. NEURO: Awake, alert, oriented 2 (not to place), moves all extremities, follows commands. A/P Assessment and Plan Assessment: 1. Acute hypoxemic respiratory failure extubated 05/23, re intubated 05/27/17, extubated on 06/01 2. Delirium/metabolic encephalopathy -improved 3. Embolic stroke bilateral occipital lobes, left cerebellar 4. Possible pneumonia 5. S/p opacification of left lung due to mucous plugs-improved post bronch 6. ESRD on peritoneal dialysis 7. History of hypertension 8. CAD, s/p CALLIE to RCA in Mar 9. COPD 10. History of sleep apnea on CPAP at home 11. History of cerebrovascular accident Plan: Neuro: MRI brain shows embolic stroke bilateral occipital lobes, left cerebellar. MRA brain and neck unremarkable ROBERT negative for cardiac source of emboli EEG shows encephalopathy no seizures CT brain 05/22- no acute process Pulm: Intubated and placed on mechanical ventilation 05/27 for lack of airway protection and hypoxia Anterior airway with DL Grade 3 view Extubated on 06/01 Bronchodilators ( DuoNeb). Mucomyst neb. Inhaled budesonide. Completed steroids s/p bronchoscopy 05/28/2017 large amount of thick mucoid secretions removed from bilateral lower lobe segmental bronchi s/p bronch 05/22 - thick mucoid secretions on left suctioned to clear. Follow up on BAL results-negative to date Pulm is following- Dr. Hogue. On Symbicort and Spiriva CV: Monitor HR and BP and maintain MAP> 65 mmHg. Echo in February showed EF of 55-60% with no regional wall motion abnormalities. ROBERT negative for cardiac source of emboli 05/29/17 Continue with aspirin, Plavix, Lipitor. : Monitor renal function. I's and O's and avoid nephrotoxins. Nephrology- Dr. Hoskote following , on peritoneal dialysis Lasix on hold Replete potassium GI: On Pepcid 10 mg IV q. 12 hours for GI prophylaxis. ID: Continue Zosyn for now. Stop azithromycin today. Vanco stopped already F/u blood and peritoneal fluid cultures-negative to date Monitor for signs of infections( fever and WBC). Follow up on BAL cx 05/28 Endo: SSI with Accu-Chek for glycemic control. Heme: Monitor CBC. GI prophylaxis with Pepcid, DVT prophylaxis with SCDs/ heparin sub-Q Lines: Left IJ CVP placed 05/22 Patient is critically ill with new embolic strokes delirium and CT chest with evidence of aspiration. Palliative care following to address goals of care- patient overall declining over the last several months. 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 Anibal Garcia MD Jun 02, 2017 09:49
--- NOTE | 2017-06-02 10:59 | HHI.NPPN ---
Subjective General Problems: Anemia Renal Failure: Chronic, End Stage Renal Disease Interval History More alert today. Has some upper extremity edema. Able to move all four extremities but has profound weakness. (Jania Gallagher) Review of Systems Respiratory Lungs: SOB, Cough (Jania Gallagher) Cardiovascular Cardiac: Edema (Jania Gallagher) Objective Data Data Vital Signs Date Time Temp Pulse Resp B/P (MAP) Pulse Ox O2 Delivery O2 Flow Rate FiO2 06/02/17 08:59 100 Nasal Cannula 2.00 06/02/17 06:00 51 06/02/17 04:00 97.9 49 18 143/67 (92) 97 06/02/17 04:00 56 06/02/17 02:00 56 06/02/17 00:00 51 06/02/17 00:00 98.0 52 18 117/57 (77) 96 06/01/17 22:27 100 Nasal Cannula 2.00 06/01/17 22:00 50 06/01/17 20:00 97.9 53 20 109/55 (73) 100 06/01/17 20:00 98 Nasal Cannula 3.00 35 06/01/17 20:00 52 06/01/17 18:00 57 06/01/17 16:00 68 06/01/17 16:00 98.2 68 22 124/60 (81) 100 06/01/17 14:00 56 06/01/17 14:00 98.0 56 20 125/57 (79) 100 06/01/17 12:00 58 06/01/17 12:00 98.2 58 21 122/57 (78) 100 (Jania Gallagher) -: 06/02/17 0500 06/02/17 0500 Imaging Last 72 hours Impressions Chest X-Ray 06/02/17 0600 Signed Impressions: Service Date/Time: Friday, June 02, 2017 03:11 - CONCLUSION: 1. Interval extubation and removal of NG tube with slight increase in basilar airspace disease. Layo Mathews MD Chest X-Ray 06/01/17 0600 Signed Impressions: Service Date/Time: Thursday, June 01, 2017 04:04 - CONCLUSION: 1. Support apparatus in good position. Subsegmental basilar airspace disease. Layo Mathews MD Chest X-Ray 05/31/17 0600 Signed Impressions: Service Date/Time: Wednesday, May 31, 2017 05:21 - CONCLUSION: Unchanged bibasilar infiltrates. Abhishek Fatima Jr., MD Tubes & Lines: Tenckhoff Catheter (Jania Gallagher B. SEWING MACHINE ATTACHMENT TESTER) Physical Exam General Appearance: Well Developed, No Acute Distress, Comfortable Appearance Remarks chronically ill appearing (Elliott,Jania B. SEWING MACHINE ATTACHMENT TESTER) Eyes Eye Exam: Pupils Equal, Pupils Reactive (Elliott,Jania B. SEWING MACHINE ATTACHMENT TESTER) Throat Throat Exam: Oral Mucosa Stem & Moist (Elliott,Jania B. SEWING MACHINE ATTACHMENT TESTER) Neck Neck Exam: Neck Supple (Elliott,Jania B. SEWING MACHINE ATTACHMENT TESTER) Pulmonary Resp Exam: No Distress, Crackles, Rhonchi, Decreased Bases (Elliott,Jania B. SEWING MACHINE ATTACHMENT TESTER) Cardiology CV Exam: Regular, Normal Sinus Rhythm, Good Perfusion (ElliottJania B. SEWING MACHINE ATTACHMENT TESTER) Gastrointestinal/Abdomen GI Exam: Soft (ElliottJania B. SEWING MACHINE ATTACHMENT TESTER) Musculoskeletal MS Exam: Joints Intact, Atrophy, Unable to Ambulate (ElliottJania B. SEWING MACHINE ATTACHMENT TESTER) Integumentary Skin Exam: Warm, Dry, Intact Skin Remarks multiple abrasions/scars to lower extremities (ElliottJania B. SEWING MACHINE ATTACHMENT TESTER) Extremeties Extremities Exam: No Edema, Pedal Pulses Palpable Extremeties Remarks bilateral foot drop (ElliottJania B. SEWING MACHINE ATTACHMENT TESTER) Neurologic Neuro Exam: Unresponsive, Sedated (ElliottJania B. SEWING MACHINE ATTACHMENT TESTER) Assessment/Plan Discussed Condition With: Patient Assessment Summary: Anemia of CKD, Malnutrition, Hypotension, End Stage Renal Disease Problem List: (1) End stage renal disease ICD Codes: N18.6 - End stage renal disease Status: Chronic Plan: Continue nightly PD for now. UF around 750 ml overnight. Orders: 9 hr treatment time; 4 cycles of 2500 ml with no last fill. We will use 1.5% and 2.5% dextrose PD solution tonight. Last admission he had issues with catheter and fluid retention last admission, had catheter manipulated twice. May need to be rolled/turned to assist with drainage. Hold diuretics Avoid IVF administration Hold phosphorus binders Replace potassium as needed Intermittently monitor renal profile. Monitor fluid status (2) Bronchial obstruction ICD Codes: J98.09 - Other diseases of bronchus, not elsewhere classified Status: Acute Plan: He had redeveloped atelectasis of the left lung. S/p bronch. s/p extubation Pulmonary toilet (3) Hypoxia ICD Codes: R09.02 - Hypoxemia Status: Resolved Plan: Improved, monitor pulmonary status (4) Pneumonia ICD Codes: J18.9 - Pneumonia Status: Resolved Plan: Blood cultures have been negative so far On Zosyn (5) Hypertension ICD Codes: I10 - Essential (primary) hypertension Status: Chronic Plan: BP improved Resume antihypertensives if needed (6) Anemia ICD Codes: D64.9 - Anemia, unspecified Status: Chronic Plan: Given Epogen on 05/23/17 (7) CVA (cerebral vascular accident) ICD Codes: I63.9 - Cerebral infarction, unspecified Plan: ROBERT negative On ASA and statin. Needs aggressive PT (Jania Gallagher) Plan patient was seen and examined. He has some degree of left upper extremity edema that could be due to IV sticks, also has left sided TLC. PD today with 2.5 % dextrose PD solution. (Gabriel Salcedo MD) Jania Gallagher Jun 02, 2017 10:59 Gabriel Salcedo MD Jun 02, 2017 14:44
[2017-06-02] MEDS: TIOTROPIUM BROMIDE 18 MCG INH INH SCH (11:44)
[2017-06-02] MEDS: BUDESONIDE-FORMOTEROL 160/4.5 MCG INHALER INH SCH (11:45)
[2017-06-03] VITALS (9 sets, daily range): BP systolic 110–136; BP diastolic 52–62; PULSE 54–107; RESP 18–20; TEMP 97.6–98; O2SAT 90–98
[2017-06-03] MEDS: RESP: ACETYLCYSTEINE 20% 30 ML NEB NEB SCH ×4 (04:01→20:51)
[2017-06-03] MEDS: RESP: ALBUTEROL 2.5 MG/IPRATROPIUM 0.5 MG NEB (SCH) NEB ×4 (04:01→20:54)
[2017-06-03] MEDS: PIPERACIL-TAZO 2.25 GM PREMIX 50 ML IV SCH ×3 (05:21→18:52)
[2017-06-03] MEDS: BUDESONIDE-FORMOTEROL 160/4.5 MCG INHALER INH SCH ×3 (05:25→22:34)
--- NOTE | 2017-06-03 05:42 | RADRPT ---
EXAM DATE/TIME: 06/03/2017 04:30 [facility] COMPARISON: No previous studies available for comparison. INDICATIONS : Short of breath. MEDICAL HISTORY : Hypertension. Chronic obstructive pulmonary disease. SURGICAL HISTORY : Tonsillectomy. ENCOUNTER: Subsequent ACUITY: 1 week PAIN SCORE: 0/10 LOCATION: Bilateral chest FINDINGS: Left IJ line tip in left brachiocephalic vein. Mild basilar airspace disease. No pneumothorax. Small left effusion. CONCLUSION: 1. Left IJ line tip in the left brachiocephalic vein. Mild basilar airspace disease. No pneumothorax. Layo Mathews MD on June 03, 2017 at 5:38 Board Certified Radiologist. This report was verified electronically.
[2017-06-03 06:02] LABS: AUTOMATED NEUTROPHIL # 8.6 TH/MM3 (1.8-7.7); BASOPHIL % 0.4 % (0.0-2.0); EOSINOPHIL # 0.5 TH/MM3 (0-0.4); EOSINOPHIL % 4.5 % (0.0-4.0); HEMATOCRIT 31.4 % (39.0-51.0); HEMOGLOBIN 10.6 GM/DL (13.0-17.0); LYMPH % 8.7 % (9.0-44.0); LYMPHOCYTE # 0.9 TH/MM3 (1.0-4.8); MEAN CELL VOLUME 93.1 FL (80.0-100.0); MEAN CORPUSCULAR HEMOGLOBIN 31.6 PG (27.0-34.0); MEAN CORPUSCULAR HGB CONC 33.9 % (32.0-36.0); MEAN PLATELET VOLUME 8.9 FL (7.0-11.0); MONO % 7.6 % (0.0-8.0); MONOCYTE # 0.8 TH/MM3 (0-0.9); NEUT % 78.8 % (16.0-70.0); PLATELET COUNT 113 TH/MM3 (150-450); RED BLOOD COUNT 3.37 MIL/MM3 (4.50-5.90); WHITE BLOOD COUNT 10.9 TH/MM3 (4.0-11.0)
[2017-06-03 06:37] LABS: ALBUMIN 2.3 GM/DL (3.4-5.0); ALKALINE PHOSPHATASE 53 U/L (45-117); ALT (GPT) 24 U/L (12-78); AST (GOT) 23 U/L (15-37); BLOOD UREA NITROGEN 47 MG/DL (7-18); CALCIUM 8.9 MG/DL (8.5-10.1); CHLORIDE 98 MEQ/L (98-107); CREATININE 7.84 MG/DL (0.60-1.30); GLOMERULAR FILTRATION RATE 7 ML/MIN (>89); GLUCOSE,RANDOM 99 MG/DL (74-106); MAGNESIUM 1.8 MG/DL (1.5-2.5); SODIUM (NA) 138 MEQ/L (136-145); TOTAL BILIRUBIN ADULT 0.9 MG/DL (0.2-1.0)
[2017-06-03 07:49] LABS: BANDS 1 % (0-6); LYMPHOCYTES 4 % (9-44); MONOCYTES 6 % (0-8); MYELOCYTES 1 % (0-0); NEUTROPHIL # MANUAL DIFF 9.3 TH/MM3 (1.8-7.7); POLYS (SEG NEUTROPHILS) 83 % (16-70)
[2017-06-03 07:50] LABS: HYPERSEGMENTED POLYS 1+ (NORMAL)
[2017-06-03] MEDS: INSULIN ASPART SUPPLEMENTAL SCALE SQ SCH ×3 (07:51→21:00)
[2017-06-03] MEDS: CHLORHEXIDINE 0.12% (ORAL KIT) 15 ML CUP MT SCH ×2 (08:00→20:00)
[2017-06-03] MEDS ORDERED: POTASSIUM CHLOR 20 MEQ PREMIX 100 ML IV ONE (08:00)
[2017-06-03] MEDS: LACTOBACILLUS ACIDOPHILUS TAB PO SCH ×3 (08:28→18:52)
[2017-06-03] MEDS: CALCITRIOL 0.25 MCG CAP PO SCH (08:28)
[2017-06-03] MEDS: TIOTROPIUM BROMIDE 18 MCG INH INH SCH (08:28)
[2017-06-03] MEDS: levETIRAcetam 500 MG TAB PO SCH (08:29)
[2017-06-03] MEDS: POTASSIUM CHLORIDE 20 MEQ CONTROLLED RELEASE TAB PO SCH ×2 (08:29→09:47)
[2017-06-03] MEDS: SENNOSIDES SYRUP 8.8 MG/5 ML CUP PO SCH (08:29)
[2017-06-03] MEDS: guaiFENesin SOLUTION 200 MG/10 ML CUP PO SCH ×2 (08:29→21:54)
[2017-06-03] MEDS: DOCUSATE SODIUM 100 MG CAP PO SCH ×2 (08:29→21:54)
[2017-06-03] MEDS: CLOPIDOGREL 75 MG TAB PO SCH (08:29)
[2017-06-03] MEDS: ASPIRIN EC 81 MG TABEC PO SCH (08:29)
[2017-06-03] MEDS: SODIUM CHLORIDE 0.9% FLUSH 10 ML FLUSH IV FLUSH SCH ×2 (08:34→21:55)
--- NOTE | 2017-06-03 08:58 | HHI.CCPN ---
Subjective Remarks/Hospital Course Patient is an 82-year-old male with a past medical history of hypertension, obstructive sleep apnea on CPAP, COPD, CVA, end-stage renal disease on peritoneal dialysis who was admitted under hospitalist service on 05/21/2017 for respiratory distress. He had a chest x-ray on arrival which showed complete opacification of the left hemithorax with left shift of the mediastinum. Subsequently, he had CT chest without contrast which showed collapse of the left lung that appears to be due to extensive debris within the left main stem bronchus extending peripherally. No obvious hilar mass seen. A pleural parenchymal atelectasis or scarring posteriorly in the superior segment of right lower lobe noted as well. The patient was seen by Dr. Hogue from pulmonary service and scheduled to undergo a bronchoscopy. He had an ABG early this morning on a nonrebreather mask which showed acute hypoxemic respiratory failure with a pH of 7.40, CO2 of 37, PaO2 59, saturation 87%. The patient was placed on BiPAP with 100% FIO2 and transferred to [facility] [place]. Critical care medicine was consulted for critical care management. When seen, the patient had a saturation of 90% on 100% FIO2. Due to worsening respiratory status, he was immediately intubated by myself and placed on full mechanical ventilation. Most of the history was obtained from reviewing the medical records. A repeat chest x-ray this morning prior to intubation showed no significant change with complete collapse of the left lung. 05/23 Patient remains intubated, sedated with Fentanyl drip. Required Levophed post intubation now off pressor. Afebrile. s/p bronch yesterday showed thick mucoid secretions/mucous plugs on left suctioned to clear CXR post bronch showed improved aeration on left. 05/24 Patient was extubated yesterday placed on partial non rebreather overnight. Awake and alert. Afebrile. 05/25: Patient remains on partial nonrebreather. Unable to wean remains hypoxic. Intermittently confused oriented to person and somewhat to place 05/26: Patient remains increasingly confused. Possible sepsis and metabolic encephalopathy cannot be ruled out. Check EEG. Broaden antibiotic with Zosyn, vancomycin. Will culture blood and peritoneal fluid. Use as needed Haldol for confusion/agitation. Patient was hypotensive in a.m. improved with IV albumin bolus 05/27: Patient profoundly hypoxemic placed on BiPAP, FiO2 was increased to 90% initially now weaned to 60%. Remains altered hard to arouse. Questionable airway protection, not a candidate for BiPAP. I discussed with his Jolynn Mcgovern who requested everything to be done. Patient was intubated and placed on mechanical ventilation. Will check MRI of brain, neurology consult as appropriate. His airway is anterior, Grade 2-3 view on DL 05/28: Remains intubated sedated. Dr. Brizuela consulted for bilateral occipital and left cerebellar embolic stroke. MRA of the brain and neck ordered, 2D echo also pending. Continue Plavix and aspirin for now. Neuro Dr. Brizuela. Bronchoscopy performed today for bilateral lower lobe atelectasis. Moderate amount of thick secretions removed 05/29: Remains intubated. Just had ROBERT, no cardiac source of emboli found. Status post bronchoscopy yesterday with thick secretions removed bilateral lower lobes. Discussed with Dr. Arizmendi. He recommends continuing aspirin and Plavix if in fact patient had CALLIE in March 2017. 05/30: Patient remains intubated sedation is held. Opens eyes tracks, weakly follows commands upper and lower extremity. Appears more alert. IV Heparin DCd yesterday 05/31: T-max 99.4. Fentanyl infusion placed on hold yesterday. patient awake and responsive CPAP trials tolerated for approximately 10-12 hours yesterday. The pouch was initiated this a.m.. Patient continues to be weak physical therapy initiated occupational therapy initiated. 06/01: Remains intubated off all sedation. Follows commands 4. Chest x-ray improved. Attempt SBT for potential extubation. No significant secretions from ETT. 06/02: No events over the night. Patient did well postextubation. T-max of 98.2. Patient denies chest pain, shortness of breath, palpitations, or any other complaints. He is awake and interactive. 06/03: Patient did well over the night. T-max of 98.8. Continues to be on nasal cannula. Mr. Mcgovern is awake, interactive, denies any complaints. Breathing is improved. No family present at bedside. Objective Vital Signs Date Time Temp Pulse Resp B/P (MAP) Pulse Ox O2 Delivery O2 Flow Rate FiO2 06/03/17 06:00 55 06/03/17 05:00 90 Nasal Cannula 3.00 4/25/18 04:00 97.6 20 123/58 (79) 06/01/17 20:00 35 Intake and Output 06/03/17 06/03/17 06/04/17 08:00 16:00 00:00 Intake Total 100 ml Output Total 0 ml Balance 100 ml Result Diagram: 06/03/17 0500 06/03/17 0500 Other Results Microbiology Date/Time Source Procedure Growth Status 06/03/17 05:00 Stool Stool Stool Occult Blood (ISAIAH) - Final HEMOCCULT NEGATIVE Complete Imaging Last 24 hours Impressions Chest X-Ray 06/03/17599 Signed Impressions: Service Date/Time: Saturday, June 03, 2017 04:30 - CONCLUSION: 1. Left IJ line tip in the left brachiocephalic vein. Mild basilar airspace disease. No pneumothorax. Layo Mathews MD Last 24 hours Impressions Chest X-Ray 06/02/17599 Signed Impressions: Service Date/Time: Friday, June 02, 2017 03:11 - CONCLUSION: 1. Interval extubation and removal of NG tube with slight increase in basilar airspace disease. Layo Mathews MD Last Impressions Chest X-Ray 05/31/17599 Signed Impressions: Service Date/Time: Wednesday, May 31, 2017 05:21 - CONCLUSION: Unchanged bibasilar infiltrates. Abhishek Fatima Jr., MD Neck Magnetic Resonance Angiography 05/28/17 0000 Signed Impressions: Service Date/Time: May 12:13 - CONCLUSION: 1. Moderately limited examination due to motion degradation. 2. No significant flow-limiting stenosis demonstrated although portions of the internal carotid arteries and distal vertebral arteries are not sufficiently evaluated. Hunter Daniel MD Head Magnetic Resonance Angiography 05/28/17 0000 Signed Impressions: Service Date/Time: May 12:13 - CONCLUSION: 1. Unremarkable [place] MRA examination. Specifically, no evidence for large vessel occlusion or significant aneurysm. Hunter Daniel MD Chest CT 05/27/17 0000 Signed Impressions: Service Date/Time: Saturday, May 27, 2017 12:16 - CONCLUSION: 1. There is normal aeration of the left upper lobe. However, there is abnormal material within the left lower lobe bronchus with collapse of the left lower lobe. 2. There is a new right lower lobe airspace consolidation and new small left pleural effusion. 3. There is new small volume of free fluid in the upper abdomen. 4. 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 Joe Curry MD Brain MRI 05/27/17 0000 Signed Impressions: Service Date/Time: Saturday, May 27, 2017 11:45 - CONCLUSION: Marked central and cortical atrophy with periventricular white matter changes Minimal focal areas of restricted diffusion in both occipital lobes and left cerebellar hemisphere Suspicious for embolic ischemic event. Kian Adkins MD FACR Head CT 05/22/17 0000 Signed Impressions: Service Date/Time: Monday, May 22, 2017 12:22 - CONCLUSION: Negative for acute process Kian Adkins MD FACR Abdomen X-Ray 05/22/17 0000 Signed Impressions: Service Date/Time: Monday, May 22, 2017 10:27 - CONCLUSION: No evidence of obstruction. Nasogastric tube across the GE junction. No free air. Kian Adkins MD FACR Last Impressions Head CT 05/22/17 0000 Signed Impressions: Service Date/Time: Monday, May 22, 2017 12:22 - CONCLUSION: Negative for acute process Kian Adkins MD FACR Chest X-Ray 05/22/17 0000 Signed Impressions: Service Date/Time: Monday, May 22, 2017 17:03 - CONCLUSION: 1. Left IJ central line in the SVC junction without pneumothorax. 2. Patchy airspace disease in the left mid to lower lung zones. Hunter Daniel MD Abdomen X-Ray 05/22/17 0000 Signed Impressions: Service Date/Time: Monday, May 22, 2017 10:27 - CONCLUSION: No evidence of obstruction. Nasogastric tube across the GE junction. No free air. Kian Adkins MD FACR Chest CT 05/21/17 0000 Signed Impressions: Service Date/Time: May 16:29 - CONCLUSION: 1. Complete collapse of the left lung appears to be due to extensive debris within the left mainstem bronchus extending peripherally. Bronchoscopy is recommended for further evaluation and possible treatment. 2. The esophagus appears to impinge on the posterior wall of the trachea and may partially obscure the lumen in the upper thorax. 3. No obvious hilar mass lesion although anatomic detail is limited due to the adjacent collapsed lung. This area can be reevaluated after clearing of the left mainstem bronchus and reexpansion of the left lung. 4. Pleural-parenchymal atelectasis or scarring posteriorly in the superior segment of the right lower lobe. Right lung is otherwise clear. 5. Atherosclerotic calcification of the coronary arteries. Calcification of the mitral valve annulus Gelacio Allen MD Objective Remarks General - elderly gentleman, awake, ill-appearing, in no distress HEENT - pupils equal, reactive, sclerae anicteric, neck supple, no nuchal rigidity, neck veins not distended, no carotid bruit, left-sided IJ central line -site is clean CV - regular S1, S2, no murmurs Chest - improved air entry left thorax, no wheezes Abdomen - soft, non-tender, non-distended, BS present, no hepatomegaly, no splenomegaly, peritoneal dialysis catheter in place Skin - chronic stasis changes over bilateral lower extremities Extremities - warm, no edema, decreased peripheral pulses, no clubbing Neuro - awake, alert, oriented, moves all extremities and follows commands A/P Assessment and Plan Assessment: 1. Acute hypoxemic respiratory failure extubated 05/23, re intubated 05/27/17, extubated on 06/01, doing well postextubation 2. Delirium/metabolic encephalopathy -much improved 3. Embolic stroke bilateral occipital lobes, left cerebellar 4. Possible pneumonia, cultures so far have been negative to date 5. S/p opacification of left lung due to mucous plug - improved air entry 6. ESRD on peritoneal dialysis 7. History of hypertension 8. CAD, s/p CALLIE to RCA in Mar 9. COPD 10. History of sleep apnea on CPAP at home 11. History of cerebrovascular accident Plan: Neuro: MRI brain shows embolic stroke bilateral occipital lobes, left cerebellar. MRA brain and neck unremarkable ROBERT negative for cardiac source of emboli EEG shows encephalopathy no seizures CT brain 05/22- no acute process Pulm: Intubated and placed on mechanical ventilation 05/27 for lack of airway protection and hypoxia Anterior airway with DL Grade 3 view Extubated on 06/01 Bronchodilators ( DuoNeb). Mucomyst neb. Inhaled budesonide. Completed steroids s/p bronchoscopy 05/28/2017 large amount of thick mucoid secretions removed from bilateral lower lobe segmental bronchi s/p bronch 05/22 - thick mucoid secretions on left suctioned to clear. Follow up on BAL results-negative to date Pulm is following- Dr. Hogue. On Symbicort and Spiriva Needs CPAP at night Supplemental O2 during daytime to keep SPO2 above 90% CV: Monitor HR and BP and maintain MAP> 65 mmHg. Echo in February showed EF of 55-60% with no regional wall motion abnormalities. ROBERT negative for cardiac source of emboli 05/29/17 Continue with aspirin, Plavix, Lipitor. : Monitor renal function. I's and O's and avoid nephrotoxins. Nephrology- Dr. Salcedo following , on peritoneal dialysis Lasix on hold Replete potassium GI: On Pepcid 10 mg IV q. 12 hours for GI prophylaxis. ID: Continue Zosyn for now. Off Vanco and azithromycin Cultures have been negative to date Removed central line today Endo: SSI with Accu-Chek for glycemic control. Heme: Monitor CBC. GI prophylaxis with Pepcid, DVT prophylaxis with SCDs/ heparin sub-Q Lines: Left IJ CVP placed 05/22 -removed today Palliative care following to address goals of care-patient overall declining over the last several months. 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 No family present at bedside. Please call back with any questions or if additional help is needed. Anibal Garcia MD Jun 03, 2017 08:58
--- NOTE | 2017-06-03 09:01 | HHI.PR ---
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 Plan continue plavix and asa since RBOERT normal Diagnosis/Plan: Subjective Subjective Comments No acute events reported Active Medications Current Medications Medications (Trade) Dose Ordered Sig/[place] Route Start Time Stop Time Status Last Admin (Narcan Inj) 0.4 mg UNSCH PRN IV PUSH 05/21/17 16:30 (Duoneb Neb) 1 ampule Q4HR NEB PRN NEB 05/21/17 16:30 05/24/17 00:53 (Tessalon) 100 mg TID PRN PO 05/21/17 18:00 05/22/17 04:17 (Ecotrin Ec) 81 mg DAILY PO 05/22/17 09:00 06/03/17 08:29 (Lipitor) 80 mg HS PO 05/21/17 21:00 06/02/17 23:05 (Rocaltrol) 0.25 mcg DAILY PO 05/22/17 09:00 06/03/17 08:28 (CeleXA) 20 mg DAILY PO 05/22/17 09:00 Future Hold 05/25/17 08:42 (Neurontin) 100 mg BID PO 05/21/17 21:00 Future Hold 05/25/17 20:29 (Apresoline) 10 mg Q8HR PO 05/21/17 22:00 Future Hold 05/25/17 06:00 (Imdur) 30 mg DAILY PO 05/22/17 09:00 Future Hold (Lactinex) 1 tab TID PO 05/22/17 09:00 06/03/17 08:28 (Keppra) 250 mg HS PO 05/21/17 21:00 06/02/17 23:05 (Keppra) 500 mg DAILY PO 05/22/17 09:00 06/03/17 08:29 (NS Inj) 10 ml WITH DIALYSIS PRN IV FLUSH 05/21/17 19:00 (Heparin Inj) Add 1000 units of Hepa... WITH DIALYSIS PRN IV FLUSH 05/21/17 19:00 Miscellaneous Information Patient in critical care unit? Ass... [id number] .XX 05/22/17 06:30 05/22/17 19:00 (Brethine Inj) 1 mg UNSCH PRN SQ 05/22/17 07:00 (D50w (Vial) Inj) 50 ml UNSCH PRN IV PUSH 05/22/17 07:00 (Glucagon Inj) 1 mg UNSCH PRN OTHER 05/22/17 07:00 (Heparin Inj) 1,000 units WITH DIALYSIS PRN XX 05/22/17 09:00 (NS Flush) 10 ml UNSCH PRN IV FLUSH 05/22/17 09:00 (Lasix Inj) 40 mg DAILY IV PUSH 05/23/17 09:00 Future Hold 05/25/17 08:42 (Robitussin Liq) 600 mg BID PO 05/24/17 12:00 06/03/17 08:29 (Colace) 100 mg BID PO 05/24/17 21:00 06/03/17 08:29 (Senna Liq) 8.8 mg DAILY PO 05/24/17 18:00 06/03/17 08:29 (Spiriva Inh) 18 mcg DAILY INH 05/25/17 16:00 06/03/17 08:28 (Symbicort 160-4.5 Mcg Inh) 1 puff Q12HR INH 05/25/17 21:00 06/03/17 08:28 (Haldol Inj) 2 mg Q6H PRN IV 05/25/17 16:15 Piperacillin Sod/ Tazobactam Sod 50 ml @ 100 mls/hr Q8H IV 05/26/17 10:00 06/03/17 05:21 (Peridex 0.12% Liq) 15 ml BID@08,20 MT 05/27/17 20:00 06/01/17 08:11 (Lactulose Liq) 30 ml QID PRN PO 05/28/17 14:15 (NS Flush) 2 ml BID IV FLUSH 05/28/17 21:00 06/03/17 08:34 (NS Flush) 2 ml UNSCH PRN IV FLUSH 05/28/17 18:30 (NovoLOG SUPPLEMENTAL SCALE) 1 ACHS SQ 05/28/17 21:00 06/01/17 08:10 (D50w (Vial) Inj) 50 ml UNSCH PRN IV PUSH 05/28/17 18:30 (Glucagon Inj) 1 mg UNSCH PRN OTHER 05/28/17 18:30 (Plavix) 75 mg DAILY PO 05/29/17 10:30 06/03/17 08:29 (Heparin Inj) 5,000 units Q12H SQ 05/29/17 11:00 06/02/17 23:05 (Mucomyst 20% Neb) 2 ml Q6HR NEB NEB 06/01/17 10:00 06/03/17 04:01 (Duoneb Neb) 1 ampule Q6HR NEB NEB 06/01/17 10:00 06/03/17 04:01 Potassium Chloride 100 ml @ 50 mls/hr BOLUS ONCE IV 06/03/17 08:00 06/03/17 09:59 06/03/17 08:28 (KCl) 40 meq DAILY PO 06/03/17 09:00 Allergies Allergies Coded Allergies No Known Allergies (Unverified Allergy, Unknown, 05/21/17) Exam I&O / VS Vital Signs Date Time Temp Pulse Resp B/P (MAP) Pulse Ox O2 Delivery O2 Flow Rate FiO2 06/03/17 06:00 55 06/03/17 05:00 90 Nasal Cannula 3.00 06/03/17 04:00 97.6 58 20 123/58 (79) 94 06/03/17 04:00 55 06/03/17 02:00 54 06/03/17 00:00 98.0 107 18 112/52 (72) 97 06/03/17 00:00 54 06/02/17 22:26 100 Nasal Cannula 2.00 06/02/17 22:00 53 06/02/17 20:00 97.8 57 18 105/58 (74) 99 06/02/17 20:00 96 Nasal Cannula 3.00 06/02/17 20:00 57 06/02/17 20:00 53 06/02/17 18:00 63 06/02/17 16:00 98.3 53 20 111/54 (73) 100 06/02/17 16:00 53 06/02/17 14:00 53 06/02/17 12:00 55 06/02/17 12:00 98.8 55 20 107/52 (70) 97 06/02/17 10:00 58 06/02/17 08:59 100 Nasal Cannula 2.00 Respiratory: Lungs CTA, Non-labored respirations, BS equal Cardiology: Normal rate, No edema, Regular Rhythm Musculoskeletal: No calf tenderness Exam Comments much more alert. follow commands PERRL. No Ptosis EOMI MOTOR--equal direct care counselor bilateral Objective Micro and Labs Laboratory Tests Test 06/03/17 05:00 White Blood Count 10.9 Red Blood Count 3.37 Hemoglobin 10.6 Hematocrit 31.4 Mean Corpuscular Volume 93.1 Mean Corpuscular Hemoglobin 31.6 Mean Corpuscular Hemoglobin Concent 33.9 Red Cell Distribution Width 17.0 Platelet Count 113 Mean Platelet Volume 8.9 Neutrophils (%) (Auto) 78.8 Lymphocytes (%) (Auto) 8.7 Monocytes (%) (Auto) 7.6 Eosinophils (%) (Auto) 4.5 Basophils (%) (Auto) 0.4 Neutrophils # (Auto) 8.6 Lymphocytes # (Auto) 0.9 Monocytes # (Auto) 0.8 Eosinophils # (Auto) 0.5 Basophils # (Auto) 0.0 CBC Comment AUTO DIFF Differential Total Cells Counted 100 Neutrophils % (Manual) 83 Band Neutrophils % 1 Lymphocytes % 4 Monocytes % 6 Eosinophils % 5 Neutrophils # (Manual) 9.3 Myelocytes 1 Differential Comment FINAL DIFF MANUAL Hypersegmented Polys 1+ Platelet Estimate LOW Platelet Morphology Comment NORMAL Blood Urea Nitrogen 47 Creatinine 7.84 Random Glucose 99 Total Protein 6.0 Albumin 2.3 Calcium Level 8.9 Phosphorus Level 4.0 Magnesium Level 1.8 Alkaline Phosphatase 53 Aspartate Amino Transf (AST/SGOT) 23 Alanine Aminotransferase (ALT/SGPT) 24 Total Bilirubin 0.9 Sodium Level 138 Potassium Level 3.2 Chloride Level 98 Carbon Dioxide Level 28.0 Anion Gap 12 Estimat Glomerular Filtration Rate 7 Date/Time Source Procedure Growth Status 05/26/17 10:20 Blood Peripheral Aerobic Blood Culture - Final NO GROWTH IN 5 DAYS Complete 05/26/17 10:20 Blood Peripheral Anaerobic Blood Culture - Final NO GROWTH IN 5 DAYS Complete 05/26/17 09:00 Fluid Peritoneal Fluid Gram Stain - Final Complete 05/26/17 09:00 Fluid Peritoneal Fluid Body Fluid Culture - Final NO GROWTH IN 72 HRS.--AEROBICALLY OR ... Complete 06/03/17 05:00 Stool Stool Stool Occult Blood (ISAIAH) - Final HEMOCCULT NEGATIVE Complete 05/28/17 10:32 Bronchial Washings Right Lower Lobe Fungal Smear - Final NO FUNGAL ELEMENTS SEEN. Resulted 05/28/17 10:32 Bronchial Washings Right Lower Lobe Fungal Culture Pending Resulted Avery Brizuela MD PhD Jun 03, 2017 09:00
[2017-06-03] MEDS: HEPARIN SODIUM - SQ 10,000 UNITS/ML VIAL SQ SCH ×2 (11:00→21:57)
--- NOTE | 2017-06-03 11:29 | HHI.NPPN ---
Subjective General Problems: Anemia Renal Failure: Chronic, End Stage Renal Disease Interval History Doing better. Hypokalemic again today. UF was better last night. (Jania Gallagher) Review of Systems Respiratory Lungs: SOB, Cough (Jania Gallagher) Cardiovascular Cardiac: Edema (Jania Gallagher) Objective Data Data 06/03/17 06/04/17 19:00 07:00 Output Total 975 ml Balance -975 ml Peritoneal Fluid 975 ml Vital Signs Date Time Temp Pulse Resp B/P (MAP) Pulse Ox O2 Delivery O2 Flow Rate FiO2 06/03/17 09:26 98 Nasal Cannula 6.00 06/03/17 07:00 99 Nasal Cannula 3.00 35 06/03/17 06:00 55 06/03/17 05:00 90 Nasal Cannula 3.00 06/03/17 04:00 97.6 58 20 123/58 (79) 94 06/03/17 04:00 55 06/03/17 02:00 54 06/03/17 00:00 98.0 107 18 112/52 (72) 97 06/03/17 00:00 54 06/02/17 22:26 100 Nasal Cannula 2.00 06/02/17 22:00 53 06/02/17 20:00 97.8 57 18 105/58 (74) 99 06/02/17 20:00 96 Nasal Cannula 3.00 06/02/17 20:00 57 06/02/17 20:00 53 06/02/17 18:00 63 06/02/17 16:00 98.3 53 20 111/54 (73) 100 06/02/17 16:00 53 06/02/17 14:00 53 06/02/17 12:00 55 06/02/17 12:00 98.8 55 20 107/52 (70) 97 (Jania Gallagher) -: 06/03/17 0500 06/03/17 0500 Microbiology 06/03/17 Stool Occult Blood (ISAIAH) - Final, Complete HEMOCCULT NEGATIVE Imaging Last 72 hours Impressions Chest X-Ray 06/03/17 0600 Signed Impressions: Service Date/Time: Saturday, June 03, 2017 04:30 - CONCLUSION: 1. Left IJ line tip in the left brachiocephalic vein. Mild basilar airspace disease. No pneumothorax. Layo Mathews MD Chest X-Ray 06/02/17599 Signed Impressions: Service Date/Time: Friday, June 02, 2017 03:11 - CONCLUSION: 1. Interval extubation and removal of NG tube with slight increase in basilar airspace disease. Layo Mathews MD Chest X-Ray 06/01/17599 Signed Impressions: Service Date/Time: Thursday, June 01, 2017 04:04 - CONCLUSION: 1. Support apparatus in good position. Subsegmental basilar airspace disease. Layo Mathews MD Tubes & Lines: Tenckhoff Catheter (Jania GallagherP) Physical Exam General Appearance: Well Developed, No Acute Distress, Comfortable Appearance Remarks chronically ill appearing (Jania Gallagher B. SALES AND SERVICE ENGINEER) Eyes Eye Exam: Pupils Equal, Pupils Reactive (Jania Gallagher B. SALES AND SERVICE ENGINEER) Throat Throat Exam: Oral Mucosa [place] [employer] (Jania Gallagher B. SALES AND SERVICE ENGINEER) Neck Neck Exam: Neck Supple (Jania Gallagher B. SALES AND SERVICE ENGINEER) Pulmonary Resp Exam: No Distress, Crackles, Rhonchi, Decreased Bases (Jania Gallagher B. SALES AND SERVICE ENGINEER) Cardiology CV Exam: Regular, Normal Sinus Rhythm, Good Perfusion (Jania Gallagher B. SALES AND SERVICE ENGINEER) Gastrointestinal/Abdomen GI Exam: Soft (Jania Gallagher B. SALES AND SERVICE ENGINEER) Musculoskeletal MS Exam: Joints Intact, Atrophy, Unable to Ambulate (Jania Gallagher B. SALES AND SERVICE ENGINEER) Integumentary Skin Exam: Warm, Dry, Intact Skin Remarks multiple abrasions/scars to lower extremities (Jania Gallagher B. SALES AND SERVICE ENGINEER) Extremeties Extremities Exam: No Edema, Pedal Pulses Palpable Extremeties Remarks bilateral foot drop upper extremity edema (Jania Gallagher B. SALES AND SERVICE ENGINEER) Neurologic Neuro Exam: Unresponsive, Sedated (Jania Gallagher BJerel HENNINGP) Assessment/Plan Discussed Condition With: Patient Assessment Summary: Anemia of CKD, Malnutrition, Hypotension, End Stage Renal Disease Problem List: (1) End stage renal disease ICD Codes: N18.6 - End stage renal disease Status: Chronic Plan: Continue nightly PD. Orders: 9 hr treatment time; 4 cycles of 2500 ml with no last fill. We will use 1.5% and 2.5% dextrose PD solution tonight. UF improved. Continue to monitor. Last admission he had issues with catheter and fluid retention last admission, had catheter manipulated twice. May need to be rolled/turned to assist with drainage. Holding diuretics Avoid IVF administration Hold phosphorus binders for now Replace potassium as needed Intermittently monitor renal profile. Monitor fluid status , avoid IVF. (2) Bronchial obstruction ICD Codes: J98.09 - Other diseases of bronchus, not elsewhere classified Status: Acute Plan: He had redeveloped atelectasis of the left lung. S/p bronch. s/p extubation Pulmonary toilet (3) Hypoxia ICD Codes: R09.02 - Hypoxemia Status: Resolved Plan: Improved, monitor pulmonary status (4) Pneumonia ICD Codes: J18.9 - Pneumonia Status: Resolved Plan: Blood cultures have been negative so far On Zosyn (5) Hypertension ICD Codes: I10 - Essential (primary) hypertension Status: Chronic Plan: BP improved Resume antihypertensives if needed (6) Anemia ICD Codes: D64.9 - Anemia, unspecified Status: Chronic Plan: Given Epogen on 05/23/17 (7) CVA (cerebral vascular accident) ICD Codes: I63.9 - Cerebral infarction, unspecified Plan: ROBERT negative On ASA and statin. Needs aggressive PT (Jania Gallagher) Plan patient was seen and examined on 06/03/17. Agree with above assessment and plan. (Gabriel Salcedo MD) Jania Gallagher Jun 03, 2017 11:29 Gabriel Salcedo MD Jun 04, 2017 14:30
--- NOTE | 2017-06-03 14:05 | HHI.HCPN ---
Reason for visit a. To assist with evaluation and management of symptoms including: Encephalopathy, dyspnea, debility, pain b. To assist medical decision maker(s) with: better understanding of current medical conditions; weighing benefits/burdens of medical treatment options; making medical treatment decisions. . Subjective/Interval History Follow-up visit to reassess for symptom management of encephalopathy, dyspnea, pain Patient seen and assessed in [facility], room 509. No family is present. Patient denies feeling short of breath. Oxygen saturations in high 90s on 6L via nasal cannula. Follow-up chest x-ray improved, showing mild basilar airspace disease. No pneumothorax. Small left effusion. Patient is awake and alert. He is able to answer some simple questions but is slow to respond. While the patient is able to recall the events leading up to the initial stroke in 03/2017, his evacuation from [facility] to [place] and the rehab that followed, he is unable to remember most of the current hospital course. Patient did not show insight or judgement related to his current conditions and was unable to follow conversations regarding code status or his medical treatment goals. patient's expresses ongoing aggressive goals. Lab work from 06/03/2017 reviewed: == WBC: 10.9, hemoglobin 10.6, hematocrit 31.4, platelets 113, neutrophils 78.8% == Sodium: 138, potassium 3.2, chloride 98, carbon dioxide 28.0, glucose 99, calcium 8.9, phosphorus 4.0, magnesium 1.8 == BUN: 47, creatinine 7.84, GFR 7 == Total bilirubin: 0.9, AST 23, ALT 24, alkaline phosphatase 53 == Total protein: 6.0, albumin 2.3 == Hemoccult negative stool Patient past swallow evaluation this week, tolerating pured diet with thin liquids. Will advanced diet to mechanically soft with thin consistency liquids. Patient c/o pain in his buttocks secondary to immobility and bedbound status; there is a stage 1 pressure wound on his buttocks. . Family/friend interactions See interval history. . Advance Directives Living Will: Copy in medical record Health Care Surrogate: Copy in medical record Advance Directive Specifics Date completed: 04/07/2017?? . Health Care Surrogate(s): HCS form completed 04/07 without year included names patient's (Jolynn) as the healthcare decision-maker. Per [place] statutes, in the absence of written advanced directives healthcare proxy decision making would fall to the patient' s . . Documented care wishes: Patient completed a living will on 04/07 with no year included. It states if the patient were to be diagnosed with a terminal condition, ES condition or be in a persistent vegetative states with no reasonable chance of recovery he would would want life prolonging procedures withheld or withdrawn and be allowed to pass peacefully and naturally with only interventions or procedures that would provide comfort. However, patient's states that this is not what patient would want. She does not think the patient understood what he was "saying" when he signed the document. . Objective Vital Signs Date Time Temp Pulse Resp B/P (MAP) Pulse Ox O2 Delivery O2 Flow Rate FiO2 06/03/17 09:26 98 Nasal Cannula 6.00 06/03/17 07:00 99 Nasal Cannula 3.00 35 06/03/17 06:00 55 06/03/17 05:00 90 Nasal Cannula 3.00 06/03/17 04:00 97.6 58 20 123/58 (79) 94 06/03/17 04:00 55 06/03/17 02:00 54 06/03/17 00:00 98.0 107 18 112/52 (72) 97 06/03/17 00:00 54 06/02/17 22:26 100 Nasal Cannula 2.00 06/02/17 22:00 53 06/02/17 20:00 97.8 57 18 105/58 (74) 99 06/02/17 20:00 96 Nasal Cannula 3.00 06/02/17 20:00 57 06/02/17 20:00 53 06/02/17 18:00 63 06/02/17 16:00 98.3 53 20 111/54 (73) 100 06/02/17 16:00 53 Intake & Output 06/03/17 06/03/17 07:00 19:00 Intake Total 100 ml Output Total 0 ml 975 ml Balance 100 ml -975 ml Intake Oral 50 ml IV Total 50 ml Output Urine Total 0 ml Peritoneal Fluid 975 ml # Bowel Movements 1 . Physical Exam CONSTITUTIONAL/GENERAL: This is a chronically ill appearing, elderly male patient in no acute distress TUBES/LINES/DRAINS: PIV, CVL, urinary catheter, nasal cannula, SKIN: No jaundice, rashes, or lesions. Ecchymoses on upper extremities. No wounds seen anteriorly. Skin temperature appropriate. Not diaphoretic. Stage I pressure ulcer on buttocks HEAD: Atraumatic. Normocephalic. EYES: Pupils equal and round and reactive. Extraocular motions intact. No scleral icterus. No injection or drainage. Fundi not examined. ENT: Nose without bleeding or purulent drainage. Oral mucosa dry NECK: Trachea midline. Supple, nontender. No palpable thyroid enlargement or nodularity. CARDIOVASCULAR: Regular rate and rhythm without murmurs, gallops, or rubs. No JVD. Peripheral pulses symmetric. RESPIRATORY/CHEST: Respirations unlabored. CTA. No wheezing, rhonchi or rales. GASTROINTESTINAL: Abdomen soft, non-tender, nondistended. No hepato-splenomegaly , or palpable masses. No guarding. Bowel sounds present. GENITOURINARY: Without palpable bladder distension. MUSCULOSKELETAL: Extremities without clubbing, cyanosis, or edema. No mottling or clubbing. Muscle atrophy and nonhealing wounds are noted to lower extremities bilaterally. LYMPHATICS: No palpable cervical or supraclavicular adenopathy. NEUROLOGICAL: Awake, lethargic. Able to answer some questions but is slow to respond; does not have recall regarding current hospital course. Limited insight or judgment related to his current medical conditions. PSYCHIATRIC: No obvious anxiety/depression. No apparent hallucinations or other psychotic thought process. . Diagnostic Tests Laboratory Laboratory Tests Test 06/01/17 04:07 06/01/17 09:14 06/01/17 15:40 06/02/17 05:00 White Blood Count 11.7 TH/MM3 (4.0-11.0) 11.0 TH/MM3 (4.0-11.0) Red Blood Count 3.43 MIL/MM3 (4.50-5.90) 3.29 MIL/MM3 (4.50-5.90) Hemoglobin 10.6 GM/DL (13.0-17.0) 10.1 GM/DL (13.0-17.0) Hematocrit 31.2 % (39.0-51.0) 30.2 % (39.0-51.0) Mean Corpuscular Volume 90.9 FL (80.0-100.0) 91.9 FL (80.0-100.0) Mean Corpuscular Hemoglobin 30.9 PG (27.0-34.0) 30.8 PG (27.0-34.0) Mean Corpuscular Hemoglobin Concent 34.0 % (32.0-36.0) 33.5 % (32.0-36.0) Red Cell Distribution Width 16.2 % (11.6-17.2) 16.6 % (11.6-17.2) Platelet Count 151 TH/MM3 (150-450) 115 TH/MM3 (150-450) Mean Platelet Volume 8.7 FL (7.0-11.0) 8.5 FL (7.0-11.0) Neutrophils (%) (Auto) 80.2 % (16.0-70.0) 77.1 % (16.0-70.0) Lymphocytes (%) (Auto) 7.8 % (9.0-44.0) 10.3 % (9.0-44.0) Monocytes (%) (Auto) 11.0 % (0.0-8.0) 8.3 % (0.0-8.0) Eosinophils (%) (Auto) 0.8 % (0.0-4.0) 4.0 % (0.0-4.0) Basophils (%) (Auto) 0.2 % (0.0-2.0) 0.3 % (0.0-2.0) Neutrophils # (Auto) 9.4 TH/MM3 (1.8-7.7) 8.5 TH/MM3 (1.8-7.7) Lymphocytes # (Auto) 0.9 TH/MM3 (1.0-4.8) 1.1 TH/MM3 (1.0-4.8) Monocytes # (Auto) 1.3 TH/MM3 (0-0.9) 0.9 TH/MM3 (0-0.9) Eosinophils # (Auto) 0.1 TH/MM3 (0-0.4) 0.4 TH/MM3 (0-0.4) Basophils # (Auto) 0.0 TH/MM3 (0-0.2) 0.0 TH/MM3 (0-0.2) CBC Comment AUTO DIFF AUTO DIFF Differential Comment AUTO DIFF CONFIRMED AUTO DIFF CONFIRMED Blood Urea Nitrogen 53 MG/DL (7-18) 52 MG/DL (7-18) Creatinine 7.84 MG/DL (0.60-1.30) 8.13 MG/DL (0.60-1.30) Random Glucose 106 MG/DL (74-106) 126 MG/DL (74-106) Calcium Level 9.7 MG/DL (8.5-10.1) 9.2 MG/DL (8.5-10.1) Phosphorus Level 1.7 MG/DL (2.5-4.9) 2.7 MG/DL (2.5-4.9) Magnesium Level 1.9 MG/DL (1.5-2.5) Sodium Level 139 MEQ/L (136-145) 139 MEQ/L (136-145) Potassium Level 2.9 MEQ/L (3.5-5.1) 3.6 MEQ/L (3.5-5.1) 3.2 MEQ/L (3.5-5.1) Chloride Level 97 MEQ/L (98-107) 98 MEQ/L (98-107) Carbon Dioxide Level 25.2 MEQ/L (21.0-32.0) 28.4 MEQ/L (21.0-32.0) Anion Gap 17 MEQ/L (5-15) 13 MEQ/L (5-15) Estimat Glomerular Filtration Rate 7 ML/MIN (>89) 6 ML/MIN (>89) Blood Gas Puncture Site RT RADIAL Blood Gas Patient Temperature 98.6 Blood Gas HCO3 27 mmol/L (22-26) Blood Gas Base Excess 3.2 mmol/L (-2-2) Blood Gas Oxygen Saturation 97 % (90-100) Arterial Blood pH 7.47 (7.380-7.420) Arterial Blood Partial Pressure CO2 38 mmHg (38-42) Arterial Blood Partial Pressure O2 135 mmHg (61-120) Arterial Blood Oxygen Content 14.0 Vol % (12.0-20.0) Arterial Blood Carboxyhemoglobin 0.7 % (0-4) Arterial Blood Methemoglobin 1.3 % (0-2) Blood Gas Hemoglobin 10.1 G/DL (12.0-16.0) Oxygen Delivery Device VENTILATOR Blood Gas Ventilator Setting CPAP5/5PS Blood Gas Inspired Oxygen 35 % Total Protein 5.8 GM/DL (6.4-8.2) Albumin 2.3 GM/DL (3.4-5.0) Alkaline Phosphatase 65 U/L (45-117) Aspartate Amino Transf (AST/SGOT) 24 U/L (15-37) Alanine Aminotransferase (ALT/SGPT) 25 U/L (12-78) Total Bilirubin 0.8 MG/DL (0.2-1.0) Test 06/03/17 05:00 White Blood Count 10.9 TH/MM3 (4.0-11.0) Red Blood Count 3.37 MIL/MM3 (4.50-5.90) Hemoglobin 10.6 GM/DL (13.0-17.0) Hematocrit 31.4 % (39.0-51.0) Mean Corpuscular Volume 93.1 FL (80.0-100.0) Mean Corpuscular Hemoglobin 31.6 PG (27.0-34.0) Mean Corpuscular Hemoglobin Concent 33.9 % (32.0-36.0) Red Cell Distribution Width 17.0 % (11.6-17.2) Platelet Count 113 TH/MM3 (150-450) Mean Platelet Volume 8.9 FL (7.0-11.0) Neutrophils (%) (Auto) 78.8 % (16.0-70.0) Lymphocytes (%) (Auto) 8.7 % (9.0-44.0) Monocytes (%) (Auto) 7.6 % (0.0-8.0) Eosinophils (%) (Auto) 4.5 % (0.0-4.0) Basophils (%) (Auto) 0.4 % (0.0-2.0) Neutrophils # (Auto) 8.6 TH/MM3 (1.8-7.7) Lymphocytes # (Auto) 0.9 TH/MM3 (1.0-4.8) Monocytes # (Auto) 0.8 TH/MM3 (0-0.9) Eosinophils # (Auto) 0.5 TH/MM3 (0-0.4) Basophils # (Auto) 0.0 TH/MM3 (0-0.2) CBC Comment AUTO DIFF Differential Total Cells Counted 100 Neutrophils % (Manual) 83 % (16-70) Band Neutrophils % 1 % (0-6) Lymphocytes % 4 % (9-44) Monocytes % 6 % (0-8) Eosinophils % 5 % (0-4) Neutrophils # (Manual) 9.3 TH/MM3 (1.8-7.7) Myelocytes 1 % (0-0) Differential Comment FINAL DIFF MANUAL Hypersegmented Polys 1+ (NORMAL) Platelet Estimate LOW (NORMAL) Platelet Morphology Comment NORMAL (NORMAL) Blood Urea Nitrogen 47 MG/DL (7-18) Creatinine 7.84 MG/DL (0.60-1.30) Random Glucose 99 MG/DL (74-106) Total Protein 6.0 GM/DL (6.4-8.2) Albumin 2.3 GM/DL (3.4-5.0) Calcium Level 8.9 MG/DL (8.5-10.1) Phosphorus Level 4.0 MG/DL (2.5-4.9) Magnesium Level 1.8 MG/DL (1.5-2.5) Alkaline Phosphatase 53 U/L (45-117) Aspartate Amino Transf (AST/SGOT) 23 U/L (15-37) Alanine Aminotransferase (ALT/SGPT) 24 U/L (12-78) Total Bilirubin 0.9 MG/DL (0.2-1.0) Sodium Level 138 MEQ/L (136-145) Potassium Level 3.2 MEQ/L (3.5-5.1) Chloride Level 98 MEQ/L (98-107) Carbon Dioxide Level 28.0 MEQ/L (21.0-32.0) Anion Gap 12 MEQ/L (5-15) Estimat Glomerular Filtration Rate 7 ML/MIN (>89) . Result Diagram: 06/03/17 0500 06/03/17 0500 Microbiology Microbiology Date/Time Source Procedure Growth Status 06/03/17 05:00 Stool Stool Stool Occult Blood (ISAIAH) - Final HEMOCCULT NEGATIVE Complete . Procedures 05/22/2017: Left IJ CVL placed 05/22/2017: Intubation 05/23/2017: Extubation 05/27/2017: Reintubation 06/01/2017: Extubation . Assessment and Plan Disease Oriented Problem List: (1) Troponin level elevated (2) Elevated CK (3) Elevated brain natriuretic peptide (BNP) level (4) Hyperlipidemia (5) Hypertension (6) NSTEMI (non-ST elevated myocardial infarction) (7) Peritoneal dialysis catheter dysfunction (8) Acute on chronic kidney failure (9) COPD (chronic obstructive pulmonary disease) (10) CHF (congestive heart failure) (11) Seizures (12) Lacunar infarct, acute (13) C. difficile colitis (14) Bronchial obstruction (15) Anemia (16) Pneumonia Symptom Scale: (1) Encephalopathy 0-10 Scale: Unable to quantify (2) Dyspnea 0-10 Scale: Unable to quantify (3) Debility 0-10 Scale: Unable to quantify (4) Pain 0-10 Scale: Unable to quantify Pertinent Non-Medical Issues Psychosocial:Patient is originally from the [place]. He is an only child. His mother during childbirth and his father at the age of 50 from an [place]. He has been to his for approximately 57 years. They moved to [place] 44 years ago. They have 2 adult children, 1 daughter and 1 son. 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 Spiritual: Holiness pauline Legal:Decision making: HCS form completed 04/07 without year included names patient's (Jolynn) as the healthcare decision-maker. Per [place] statutes, in the absence of written advanced directives healthcare proxy decision making would fall to the patient's . Ethical issues impacting care: No known ethical issues impacting care at this time. . Important Contacts Jolynn Mcgovern, spouse: [phone] . Prognosis Patient is an 82-year-old male with multiple comorbidities who has exhibited an acute decline over the past 6 months. Patient is currently requiring ventilator support secondary to respiratory failure and cognitive deficits. MRI on 2017 suspicious for embolic ischemic events. Patient is high risk for ongoing decline and complications. . Code Status: Full Code Plan * FULL CODE * Decision making: HCS form completed 04/07 without year included names patient' s (Jolynn) as the healthcare decision-maker. Per [place] statutes, in the absence of written advanced directives healthcare proxy decision making would fall to the patient's . * AGGRESSIVE GOALS * Discussed patient/family's current medical treatment goals with bedside nurse (Adilene) * Symptom management: == Dyspnea: Patient presented to ED for evaluation of shortness of breath and hypoxemic episode. Patient was medically extubated 06/01/17; patient denies shortness of breath on exam. Follow-up chest x-ray improved, showing mild basilar airspace disease. No pneumothorax. Small left effusion. == Debility: Patient has experienced an acute decline in the past several months secondary to recent stroke with associated seizures and NSTEMI in 2017. Patient received [address] [facility] for rehabilitation; he was then transferred to a group home facility for additional therapy. Upon discharge [facility] on 05/05/17, the patient was total assist for mobility and ADLs; he was tolerating a regular consistency diet with thin liquids although he did require assistance and supervision during mealtimes. Patient remains significantly debilitated and will likely never return to his previous functioning level. == Encephalopathy: Patient is awake and alert. He is able to answer some simple questions but is slow to respond. While the patient is able to recall the events leading up to the initial stroke in 03/2017, his evacuation from [facility] to [place] and the rehab that followed, he is unable to remember most of the current hospital course. Limited insight or judgement related to his current conditions and was unable to follow conversations regarding code status or his medical treatment goals. * Palliative care will continue to follow this patient throughout his hospitalization to establish trust, assist with symptom management and clarification of medical treatment goals. . Attestation To help prompt me to consider important information that might be impacting today's encounter and assessment, information from prior notes written by myself or my colleagues may have been "brought forward" into today's note. My signature on this note, however, is an attestation that I personally performed the exam, history, and/or decision-making noted today, and, unless otherwise indicated, the interactions with patient, family, and staff as well as the review of records all occurred today. I also attest that the listed assessment and stated plan reflect my best clinical judgment today based on the combination of historical information, prior notes, and today's exam/ interactions. When time spent is documented, it refers only to time spent today by the signer, or if indicated, combined time spent today by collaborating physician/nurse practitioner. . Dayna Henson Jun 03, 2017 14:05
[2017-06-03] MEDS: ATORVASTATIN 80 MG TAB PO SCH (21:54)
[2017-06-03] MEDS: ACETAMINOPHEN 325 MG TAB PO PRN (21:54)
[2017-06-03] MEDS: levETIRAcetam 250 MG TAB PO SCH (21:54)
[2017-06-04] VITALS (11 sets, daily range): BP systolic 113–142; BP diastolic 55–61; PULSE 56–72; RESP 19–20; TEMP 97.4–98.9; O2SAT 95–99
[2017-06-04] MEDS: PIPERACIL-TAZO 2.25 GM PREMIX 50 ML IV SCH ×2 (03:06→08:52)
[2017-06-04] MEDS: RESP: ALBUTEROL 2.5 MG/IPRATROPIUM 0.5 MG NEB (SCH) NEB ×4 (03:56→22:25)
[2017-06-04] MEDS: RESP: ACETYLCYSTEINE 20% 30 ML NEB NEB SCH ×4 (03:56→22:25)
[2017-06-04 06:59] LABS: AUTOMATED NEUTROPHIL # 7.5 TH/MM3 (1.8-7.7); BASOPHIL # 0.1 TH/MM3 (0-0.2); BASOPHIL % 0.8 % (0.0-2.0); EOSINOPHIL # 0.6 TH/MM3 (0-0.4); EOSINOPHIL % 5.9 % (0.0-4.0); HEMATOCRIT 29.6 % (39.0-51.0); LYMPH % 11.5 % (9.0-44.0); LYMPHOCYTE # 1.2 TH/MM3 (1.0-4.8); MEAN CELL VOLUME 93.2 FL (80.0-100.0); MEAN CORPUSCULAR HEMOGLOBIN 31.4 PG (27.0-34.0); MEAN CORPUSCULAR HGB CONC 33.6 % (32.0-36.0); MEAN PLATELET VOLUME 8.8 FL (7.0-11.0); MONO % 7.5 % (0.0-8.0); MONOCYTE # 0.8 TH/MM3 (0-0.9); NEUT % 74.3 % (16.0-70.0); PLATELET COUNT 114 TH/MM3 (150-450); RED BLOOD COUNT 3.18 MIL/MM3 (4.50-5.90); RED CELL DISTRIBUTION WIDTH 17.2 % (11.6-17.2); WHITE BLOOD COUNT 10.1 TH/MM3 (4.0-11.0)
[2017-06-04 07:18] LABS: ALBUMIN 2.1 GM/DL (3.4-5.0); ALT (GPT) 21 U/L (12-78); AST (GOT) 26 U/L (15-37); BLOOD UREA NITROGEN 48 MG/DL (7-18); CALCIUM 8.9 MG/DL (8.5-10.1); CHLORIDE 102 MEQ/L (98-107); CREATININE 8.66 MG/DL (0.60-1.30); GLOMERULAR FILTRATION RATE 6 ML/MIN (>89); GLUCOSE,RANDOM 83 MG/DL (74-106); MAGNESIUM 1.8 MG/DL (1.5-2.5); PHOSPHORUS 4.7 MG/DL (2.5-4.9); SODIUM (NA) 140 MEQ/L (136-145)
[2017-06-04 07:21] LABS: ALKALINE PHOSPHATASE 52 U/L (45-117); TOTAL BILIRUBIN ADULT 0.9 MG/DL (0.2-1.0); TOTAL PROTEIN 5.6 GM/DL (6.4-8.2)
[2017-06-04 07:43] LABS: HYPERSEGMENTED POLYS 1+ (NORMAL); OVALOCYTES 1+ (NORMAL)
[2017-06-04] MEDS: INSULIN ASPART SUPPLEMENTAL SCALE SQ SCH ×4 (08:00→21:00)
[2017-06-04] MEDS: CHLORHEXIDINE 0.12% (ORAL KIT) 15 ML CUP MT SCH ×2 (08:00→20:00)
[2017-06-04] MEDS: CLOPIDOGREL 75 MG TAB PO SCH (08:49)
[2017-06-04] MEDS: levETIRAcetam 500 MG TAB PO SCH (08:49)
[2017-06-04] MEDS: LACTOBACILLUS ACIDOPHILUS TAB PO SCH ×3 (08:49→18:19)
[2017-06-04] MEDS: DOCUSATE SODIUM 100 MG CAP PO SCH ×2 (08:49→21:00)
[2017-06-04] MEDS: guaiFENesin SOLUTION 200 MG/10 ML CUP PO SCH ×2 (08:49→23:29)
[2017-06-04] MEDS: CALCITRIOL 0.25 MCG CAP PO SCH (08:49)
[2017-06-04] MEDS: POTASSIUM CHLORIDE 20 MEQ CONTROLLED RELEASE TAB PO SCH (08:49)
[2017-06-04] MEDS: ASPIRIN EC 81 MG TABEC PO SCH (08:49)
[2017-06-04] MEDS: SENNOSIDES SYRUP 8.8 MG/5 ML CUP PO SCH (08:50)
[2017-06-04] MEDS: BUDESONIDE-FORMOTEROL 160/4.5 MCG INHALER INH SCH ×2 (08:50→23:31)
[2017-06-04] MEDS: SODIUM CHLORIDE 0.9% FLUSH 10 ML FLUSH IV FLUSH SCH ×2 (09:00→23:30)
[2017-06-04] MEDS: TIOTROPIUM BROMIDE 18 MCG INH INH SCH (09:00)
--- NOTE | 2017-06-04 10:18 | HHI.NPPN ---
Subjective General Problems: Anemia Renal Failure: Chronic, End Stage Renal Disease Interval History Moved out of ICU. Eating breakfast. UF adequate overnight. (Jania Gallagher) Review of Systems Respiratory Lungs: SOB, Cough (Jania Gallagher) Cardiovascular Cardiac: Edema (Jania Gallagher) Objective Data Data Vital Signs Date Time Temp Pulse Resp B/P (MAP) Pulse Ox O2 Delivery O2 Flow Rate FiO2 06/04/17 10:00 Nasal Cannula 3.00 06/04/17 07:25 98.7 64 20 133/61 (85) 99 06/04/17 05:59 98.3 62 20 142/60 (87) 97 06/04/17 04:00 56 06/04/17 03:57 96 Nasal Cannula 2.00 06/04/17 00:00 60 06/04/17 00:00 98.3 62 20 113/59 (77) 98 06/03/17 20:52 96 Nasal Cannula 2.00 06/03/17 20:00 97.9 65 20 136/62 (86) 97 06/03/17 20:00 61 06/03/17 20:00 Nasal Cannula 2.00 06/03/17 12:00 98.0 64 20 110/60 (77) 94 (Jania Gallagher) -: 06/04/17 0555 06/04/17 0555 Imaging Last 72 hours Impressions Chest X-Ray 06/03/17 0600 Signed Impressions: Service Date/Time: Saturday, June 03, 2017 04:30 - CONCLUSION: 1. Left IJ line tip in the left brachiocephalic vein. Mild basilar airspace disease. No pneumothorax. Layo Mathews MD Chest X-Ray 06/02/17 0600 Signed Impressions: Service Date/Time: Friday, June 02, 2017 03:11 - CONCLUSION: 1. Interval extubation and removal of NG tube with slight increase in basilar airspace disease. Layo Mathews MD Tubes & Lines: Tenckhoff Catheter (Jania Gallagher) Physical Exam General Appearance: Well Developed, No Acute Distress, Comfortable Appearance Remarks chronically ill appearing (Jania Gallagher) Eyes Eye Exam: Pupils Equal, Pupils Reactive (Jania Gallagher) Throat Throat Exam: Oral Mucosa [place] & Moist (Jania GallagherP) Neck Neck Exam: Neck Supple (Jania Gallagher) Pulmonary Resp Exam: No Distress, Crackles, Rhonchi, Decreased Bases (Jania Gallagher FLOORING SALESPERSON) Cardiology CV Exam: Regular, Normal Sinus Rhythm, Good Perfusion (Jania GallagherP) Gastrointestinal/Abdomen GI Exam: Soft, Non-Tender, Positive Bowel Movement (Jania GallagherP) Musculoskeletal MS Exam: Joints Intact, Atrophy, Unable to Ambulate (Jania Gallagher) Integumentary Skin Exam: Warm, Dry, Intact Skin Remarks multiple abrasions/scars to lower extremities (Jania Gallagher) Extremeties Extremities Exam: No Edema, Pedal Pulses Palpable Extremeties Remarks bilateral foot drop upper extremity edema (Jania Gallagher) Neurologic Neuro Exam: Alert, Awake, Speech Clear (Jania Gallagher) Psychiatric Psych Exam: Appropriate Responses (Jania Gallagher) Assessment/Plan Discussed Condition With: Patient Assessment Summary: Anemia of CKD, Malnutrition, Hypotension, End Stage Renal Disease Problem List: (1) End stage renal disease ICD Codes: N18.6 - End stage renal disease Status: Chronic Plan: Continue nightly PD. Orders: 9 hr treatment time; 4 cycles of 2500 ml with no last fill. We will use 1.5% and 2.5% dextrose PD solution. UF improved. Continue to monitor. Last admission he had issues with catheter and fluid retention last admission, had catheter manipulated twice. May need to be rolled/turned to assist with drainage. Lasix held Avoid IVF administration Hold phosphorus binders for now On daily potassium replacement PO Intermittently monitor renal profile. Monitor fluid status , avoid IVF. (2) Bronchial obstruction ICD Codes: J98.09 - Other diseases of bronchus, not elsewhere classified Status: Acute Plan: He had redeveloped atelectasis of the left lung. S/p bronch. s/p extubation Pulmonary toilet (3) Hypoxia ICD Codes: R09.02 - Hypoxemia Status: Resolved Plan: Improved, monitor pulmonary status (4) Pneumonia ICD Codes: J18.9 - Pneumonia Status: Resolved Plan: Blood cultures have been negative so far On Zosyn (5) Hypertension ICD Codes: I10 - Essential (primary) hypertension Status: Chronic Plan: BP improved Resume antihypertensives if needed (6) Anemia ICD Codes: D64.9 - Anemia, unspecified Status: Chronic Plan: Given Epogen on 05/23/17 (7) CVA (cerebral vascular accident) ICD Codes: I63.9 - Cerebral infarction, unspecified Plan: ROBERT negative On ASA and statin. Needs aggressive PT (Jania Gallagher) Plan patient was seen and examined. Agree with above assessment and plan. Another dose of Epogen today. (Gabriel Salcedo MD) Jania Gallagher Jun 04, 2017 10:18 Gabriel Salcedo MD Jun 04, 2017 14:52
--- NOTE | 2017-06-04 12:22 | HHI.PR ---
Subjective Remarks patient transfereed from [facility] – [place] awake and alert denies any chest pains or shrotness of breath po intake improving, no nausea or vomiting states still making some urine no diarrhea, no cough Objective Vitals Vital Signs Date Time Temp Pulse Resp B/P (MAP) Pulse Ox O2 Delivery O2 Flow Rate FiO2 06/04/17 10:00 Nasal Cannula 3.00 06/04/17 08:00 Nasal Cannula 2.00 06/04/17 07:43 60 06/04/17 07:25 98.7 64 20 133/61 (85) 99 06/04/17 05:59 98.3 62 20 142/60 (87) 97 06/04/17 04:00 56 06/04/17 03:57 96 Nasal Cannula 2.00 06/04/17 00:00 60 06/04/17 00:00 98.3 62 20 113/59 (77) 98 06/03/17 20:52 96 Nasal Cannula 2.00 06/03/17 20:00 97.9 65 20 136/62 (86) 97 06/03/17 20:00 61 06/03/17 20:00 Nasal Cannula 2.00 I/O 06/03/17 06/03/17 06/03/17 06/04/17 06/04/17 06/04/17 07:00 15:00 23:00 07:00 15:00 23:00 Intake Total 100 ml Output Total 0 ml 975 ml 638 ml Balance 100 ml -975 ml -638 ml Intake Oral 50 ml IV Total 50 ml Output Urine Total 0 ml Peritoneal Fluid 975 ml 638 ml # Bowel Movements 1 Result Diagram: 06/04/17 0555 06/04/17 0555 Imaging Last Impressions Chest X-Ray 06/03/17 0600 Signed Impressions: Service Date/Time: Saturday, June 03, 2017 04:30 - CONCLUSION: 1. Left IJ line tip in the left brachiocephalic vein. Mild basilar airspace disease. No pneumothorax. Layo Mathews MD Neck Magnetic Resonance Angiography 05/28/17 0000 Signed Impressions: Service Date/Time: May 12:13 - CONCLUSION: 1. Moderately limited examination due to motion degradation. 2. No significant flow-limiting stenosis demonstrated although portions of the internal carotid arteries and distal vertebral arteries are not sufficiently evaluated. Hunter Daniel MD Head Magnetic Resonance Angiography 05/28/17 0000 Signed Impressions: Service Date/Time: May 12:13 - CONCLUSION: 1. Unremarkable [place] of [place] MRA examination. Specifically, no evidence for large vessel occlusion or significant aneurysm. Hunter Daniel MD Chest CT 05/27/17 0000 Signed Impressions: Service Date/Time: Saturday, May 27, 2017 12:16 - CONCLUSION: 1. There is normal aeration of the left upper lobe. However, there is abnormal material within the left lower lobe bronchus with collapse of the left lower lobe. 2. There is a new right lower lobe airspace consolidation and new small left pleural effusion. 3. There is new small volume of free fluid in the upper abdomen. 4. 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 Joe Curry MD Brain MRI 05/27/17 0000 Signed Impressions: Service Date/Time: Saturday, May 27, 2017 11:45 - CONCLUSION: Marked central and cortical atrophy with periventricular white matter changes Minimal focal areas of restricted diffusion in both occipital lobes and left cerebellar hemisphere Suspicious for embolic ischemic event. Kian Adkins MD FACR Head CT 05/22/17 0000 Signed Impressions: Service Date/Time: Monday, May 22, 2017 12:22 - CONCLUSION: Negative for acute process Kian Adkins MD FACR Abdomen X-Ray 05/22/17 0000 Signed Impressions: Service Date/Time: Monday, May 22, 2017 10:27 - CONCLUSION: No evidence of obstruction. Nasogastric tube across the GE junction. No free air. Kian Adkins MD FACR Objective Remarks awake and alert, oriented x 3, speech clear but soft anicteric lungs- decreased breath sounds, no wheezes, no rales regular rhythm abdmen-soft, good bowel sounds extremities no edema moves all extremities spontaneously A/P Assessment and Plan 82 years old male Acute hypoxemic respiratory failure extubated 05/23, re intubated 05/27/17, extubated on 06/01, doing well postextubation S/p opacification of left lung due to mucous plug - improved air entry Underlying COPD -Pulmonary Dr. Brown ff -d/w with - DC zosyn Delirium/metabolic encephalopathy -much improved Embolic stroke bilateral occipital lobes, left cerebellar - PT/OT daily - Neurology ff Possible pneumonia -cultures so far have been negative to date - DC Zosyn ESRD on peritoneal dialysis HYpokalemia - HD pe Nephrology - ff lytes and replace History of hypertension CAD, s/p CALLIE to RCA in Mar -continue Plavix/ASA History of sleep apnea on CPAP at home Plan: Neuro: MRI brain shows embolic stroke bilateral occipital lobes, left cerebellar. MRA brain and neck unremarkable ROBERT negative for cardiac source of emboli EEG shows encephalopathy no seizures CT brain 05/22- no acute process Pulm: Intubated and placed on mechanical ventilation 05/27 for lack of airway protection and hypoxia Anterior airway with DL Grade 3 view Extubated on 06/01 Bronchodilators ( DuoNeb). Mucomyst neb. Inhaled budesonide. Completed steroids s/p bronchoscopy 05/28/2017 large amount of thick mucoid secretions removed from bilateral lower lobe segmental bronchi s/p bronch 05/22 - thick mucoid secretions on left suctioned to clear. Follow up on BAL results-negative to date Pulm is following- Dr. Hogue. On Symbicort and Spiriva Needs CPAP at night Supplemental O2 during daytime to keep SPO2 above 90% CV: Monitor HR and BP and maintain MAP> 65 mmHg. Echo in February showed EF of 55-60% with no regional wall motion abnormalities. ROBERT negative for cardiac source of emboli 05/29/17 Continue with aspirin, Plavix, Lipitor. : Monitor renal function. I's and O's and avoid nephrotoxins. Nephrology- Dr. Salcedo following , on peritoneal dialysis Lasix on hold Replete potassium GI: On Pepcid 10 mg IV q. 12 hours for GI prophylaxis. ID: will DC Vancomycin. Off Vanco and azithromycin Cultures have been negative to date Removed central line 06/03 Endo: SSI with Accu-Chek for glycemic control. Heme: Monitor CBC. GI prophylaxis with Pepcid, DVT prophylaxis with SCDs/ heparin sub-Q Palliative care following to address goals of care-patient overall declining over the last several months. 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 CM- DC planning- need SNF Gume Andrade MD Jun 04, 2017 12:22
--- NOTE | 2017-06-04 12:38 | HHI.PR ---
Subjective Remarks Doing well and on O 2 2l Needs PT and OT. CXR is better Objective Vital Signs Date Time Temp Pulse Resp B/P (MAP) Pulse Ox O2 Delivery O2 Flow Rate FiO2 06/04/17 10:00 Nasal Cannula 3.00 06/04/17 08:00 Nasal Cannula 2.00 06/04/17 07:43 60 06/04/17 07:25 98.7 64 20 133/61 (85) 99 06/04/17 05:59 98.3 62 20 142/60 (87) 97 06/04/17 04:00 56 06/04/17 03:57 96 Nasal Cannula 2.00 06/04/17 00:00 60 06/04/17 00:00 98.3 62 20 113/59 (77) 98 06/03/17 20:52 96 Nasal Cannula 2.00 06/03/17 20:00 97.9 65 20 136/62 (86) 97 06/03/17 20:00 61 06/03/17 20:00 Nasal Cannula 2.00 I/O 06/03/17 06/03/17 06/03/17 06/04/17 06/04/17 06/04/17 07:00 15:00 23:00 07:00 15:00 23:00 Intake Total 100 ml Output Total 0 ml 975 ml 638 ml Balance 100 ml -975 ml -638 ml Intake Oral 50 ml IV Total 50 ml Output Urine Total 0 ml Peritoneal Fluid 975 ml 638 ml # Bowel Movements 1 Result Diagram: 06/04/17 0555 06/04/17 0555 Objective Remarks GENERAL: This moderately obese, elderly man alert. He has some weakness of the left extremities and scaly skin with mild peripheral edema. HEENT: Head is normocephalic. Pupils are reactive. Tongue is dry. Throat was clear. Nasal mucosa is clear. NECK: Supple, no bruits or thyroid enlargement. CHEST: Distant breath sounds with occasional wheezes over the right lung field.Basal crackles + HEART: The heart sounds were irregular, S1 and S2 with no murmur. ABDOMEN: Soft, protuberant with Bowel sounds active. No organomegaly. EXTREMITIES: No edema and decreased peripheral pulses. Reflexes 1+. The patient does have some weakness of the lower extremities as well. Assessment and Plan Assessment and Plan IMPRESSION: 1. Atelectasis left lung with left pleural effusion,resolved 2. History of cerebrovascular accident. 3. Hypertension. 4. History of chronic bronchitis and reactive airways. 5. End-stage renal disease and on peritoneal dialysis. 6. Obstructive sleep apnea, on CPAP. Plan : 1. Will Wean FIO2 to keep sat >92. 2. PT and OT 3. D/C Zosyn. 4. Duonebs qid. 5. CPAP at HS as Before 6. IS at bdside q3h 7. CBC , BMP in am 8. Diet soft with aspiration precaution 9. D/W Chela Segura MD Jun 04, 2017 12:38
[2017-06-04] MEDS: HEPARIN SODIUM - SQ 10,000 UNITS/ML VIAL SQ SCH ×2 (12:39→23:30)
[2017-06-04] MEDS ORDERED: EPOETIN ALFA 20,000 UNITS/ML VIAL SQ ONE (15:00)
[2017-06-04] MEDS: ACETAMINOPHEN 325 MG TAB PO PRN ×2 (18:20→23:30)
[2017-06-04] MEDS: levETIRAcetam 250 MG TAB PO SCH (23:29)
[2017-06-04] MEDS: ATORVASTATIN 80 MG TAB PO SCH (23:29)
[2017-06-05] VITALS (9 sets, daily range): BP systolic 106–161; BP diastolic 50–76; PULSE 41–72; RESP 16–19; TEMP 97.1–98.6; O2SAT 95–98
[2017-06-05] MEDS: RESP: ALBUTEROL 2.5 MG/IPRATROPIUM 0.5 MG NEB (SCH) NEB (03:44)
[2017-06-05] MEDS: RESP: ACETYLCYSTEINE 20% 30 ML NEB NEB SCH (03:44)
[2017-06-05] MEDS: INSULIN ASPART SUPPLEMENTAL SCALE SQ SCH ×4 (08:00→21:35)
[2017-06-05] MEDS: CHLORHEXIDINE 0.12% (ORAL KIT) 15 ML CUP MT SCH ×2 (08:00→20:00)
[2017-06-05] MEDS: guaiFENesin SOLUTION 200 MG/10 ML CUP PO SCH ×2 (08:15→21:34)
[2017-06-05] MEDS: SENNOSIDES SYRUP 8.8 MG/5 ML CUP PO SCH (08:15)
[2017-06-05] MEDS: POTASSIUM CHLORIDE 20 MEQ CONTROLLED RELEASE TAB PO SCH (08:16)
[2017-06-05] MEDS: ASPIRIN EC 81 MG TABEC PO SCH (08:16)
[2017-06-05] MEDS: SODIUM CHLORIDE 0.9% FLUSH 10 ML FLUSH IV FLUSH SCH ×2 (08:16→21:35)
[2017-06-05] MEDS: CALCITRIOL 0.25 MCG CAP PO SCH (08:16)
[2017-06-05] MEDS: LACTOBACILLUS ACIDOPHILUS TAB PO SCH ×3 (08:16→17:20)
[2017-06-05] MEDS: CLOPIDOGREL 75 MG TAB PO SCH (08:16)
[2017-06-05] MEDS: BUDESONIDE-FORMOTEROL 160/4.5 MCG INHALER INH SCH ×2 (08:16→21:35)
[2017-06-05] MEDS: levETIRAcetam 500 MG TAB PO SCH (08:16)
[2017-06-05] MEDS: DOCUSATE SODIUM 100 MG CAP PO SCH ×3 (08:16→21:34)
[2017-06-05] MEDS: TIOTROPIUM BROMIDE 18 MCG INH INH SCH (08:17)
--- NOTE | 2017-06-05 08:54 | HHI.PR ---
Subjective Remarks awake and alert no complains of abdominal pain, or shortness of breath- not much active PD cath not functioning- IR consulted for evaluation Objective Vitals Vital Signs Date Time Temp Pulse Resp B/P (MAP) Pulse Ox O2 Delivery O2 Flow Rate FiO2 06/05/17 04:00 57 06/05/17 04:00 98.6 62 18 126/60 (82) 97 06/05/17 00:00 97.8 60 18 116/58 (77) 96 06/05/17 00:00 66 06/04/17 22:27 98 Nasal Cannula 3.00 06/04/17 20:00 97.4 63 19 115/59 (77) 95 06/04/17 20:00 Nasal Cannula 2.00 06/04/17 20:00 66 06/04/17 16:00 72 06/04/17 15:40 98.9 71 20 116/58 (77) 95 06/04/17 11:20 98.2 68 20 116/55 (75) 96 06/04/17 10:00 Nasal Cannula 3.00 I/O 06/04/17 06/04/17 06/04/17 06/05/17 06/05/17 06/05/17 07:00 15:00 23:00 07:00 15:00 23:00 Intake Total 50 ml 600 ml 120 ml Output Total 638 ml 0 ml Balance -588 ml 600 ml 120 ml 0 ml Intake Oral 600 ml 120 ml IV Total 50 ml Peritoneal Fluid 638 ml 0 ml # Voids 1 1 # Bowel Movements 1 1 Result Diagram: 06/04/17 0555 06/04/17 0555 Imaging Last Impressions Chest X-Ray 06/03/17 0600 Signed Impressions: Service Date/Time: Saturday, June 03, 2017 04:30 - CONCLUSION: 1. Left IJ line tip in the left brachiocephalic vein. Mild basilar airspace disease. No pneumothorax. Layo Mathews MD Neck Magnetic Resonance Angiography 05/28/17 0000 Signed Impressions: Service Date/Time: May 12:13 - CONCLUSION: 1. Moderately limited examination due to motion degradation. 2. No significant flow-limiting stenosis demonstrated although portions of the internal carotid arteries and distal vertebral arteries are not sufficiently evaluated. Hunter Daniel MD Head Magnetic Resonance Angiography 05/28/17 0000 Signed Impressions: Service Date/Time: May 12:13 - CONCLUSION: 1. Unremarkable [place] of [place] MRA examination. Specifically, no evidence for large vessel occlusion or significant aneurysm. Hunter Daniel MD Chest CT 05/27/17 0000 Signed Impressions: Service Date/Time: Saturday, May 27, 2017 12:16 - CONCLUSION: 1. There is normal aeration of the left upper lobe. However, there is abnormal material within the left lower lobe bronchus with collapse of the left lower lobe. 2. There is a new right lower lobe airspace consolidation and new small left pleural effusion. 3. There is new small volume of free fluid in the upper abdomen. 4. 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 Joe Curry MD Brain MRI 05/27/17 0000 Signed Impressions: Service Date/Time: Saturday, May 27, 2017 11:45 - CONCLUSION: Marked central and cortical atrophy with periventricular white matter changes Minimal focal areas of restricted diffusion in both occipital lobes and left cerebellar hemisphere Suspicious for embolic ischemic event. Kian Adkins MD FACR Head CT 05/22/17 0000 Signed Impressions: Service Date/Time: Monday, May 22, 2017 12:22 - CONCLUSION: Negative for acute process Kian Adkins MD FACR Abdomen X-Ray 05/22/17 0000 Signed Impressions: Service Date/Time: Monday, May 22, 2017 10:27 - CONCLUSION: No evidence of obstruction. Nasogastric tube across the GE junction. No free air. Kian Adkins MD FACR Objective Remarks awake and alert, oriented x 3, speech clear but soft anicteric VAS cath in place lungs- decreased breath sounds, no wheezes, no rales regular rhythm abdomen-soft, good bowel sounds, PD catheter in place extremities no edema moves all extremities spontaneously- with generalized weakness A/P Assessment and Plan 82 years old male Acute hypoxemic respiratory failure extubated 05/23, re intubated 05/27/17, extubated on 06/01, doing well postextubation S/p opacification of left lung due to mucous plug - improved air entry Underlying COPD -Pulmonary Dr. Brown ff -d/w with - S/P zosyn 06/04 Delirium/metabolic encephalopathy -much improved Embolic stroke bilateral occipital lobes, left cerebellar - PT/OT daily - Neurology ff Possible pneumonia -cultures so far have been negative to date - s/p zosyn ESRD on peritoneal dialysis. PD catheter not functioning HYpokalemia- improved -Nephrology ff - ff lytes and replace - IR consulted to evaluate PD xatheter and possible VAscath placement History of hypertension CAD, s/p CALLIE to RCA in Mar -continue Plavix/ASA History of sleep apnea on CPAP at home Plan: Neuro: MRI brain shows embolic stroke bilateral occipital lobes, left cerebellar. MRA brain and neck unremarkable ROBERT negative for cardiac source of emboli EEG shows encephalopathy no seizures CT brain 05/22- no acute process Pulm: Intubated and placed on mechanical ventilation 05/27 for lack of airway protection and hypoxia Anterior airway with DL Grade 3 view Extubated on 06/01 Bronchodilators ( DuoNeb). Mucomyst neb. Inhaled budesonide. Completed steroids s/p bronchoscopy 05/28/2017 large amount of thick mucoid secretions removed from bilateral lower lobe segmental bronchi s/p bronch 05/22 - thick mucoid secretions on left suctioned to clear. Follow up on BAL results-negative to date Pulm is following- Dr. Hogue. On Symbicort and Spiriva Needs CPAP at night Supplemental O2 during daytime to keep SPO2 above 90% CV: Monitor HR and BP and maintain MAP> 65 mmHg. Echo in February showed EF of 55-60% with no regional wall motion abnormalities. ROBERT negative for cardiac source of emboli 05/29/17 Continue with aspirin, Plavix, Lipitor. : Monitor renal function. I's and O's and avoid nephrotoxins. Nephrology- Dr. Salcedo following , on peritoneal dialysis Lasix on hold Replete potassium ID: Off Vanco and azithromycin Cultures have been negative to date Removed central line 06/03 Endo: SSI with Accu-Chek for glycemic control. Heme: Monitor CBC. DVT prophylaxis with SCDs/ heparin sub-Q Palliative care following to address goals of care-patient overall declining over the last several months. 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 CM- DC planning- need SNF- for more intensive PT Gume Andrade MD Jun 05, 2017 08:54
[2017-06-05] MEDS: RESP: ALBUTEROL 2.5 MG/IPRATROPIUM 0.5 MG NEB (PRN) NEB (10:04)
[2017-06-05] MEDS: HEPARIN SODIUM - SQ 10,000 UNITS/ML VIAL SQ SCH ×2 (10:47→22:46)
--- NOTE | 2017-06-05 11:24 | HHI.HCPN ---
Reason for visit a. To assist with evaluation and management of symptoms including: Encephalopathy, dyspnea, debility, depression b. To assist medical decision maker(s) with: better understanding of current medical conditions; weighing benefits/burdens of medical treatment options; making medical treatment decisions. . Subjective/Interval History Follow-up visit to reassess for symptom management of encephalopathy, dyspnea, pain Mr. Mcgovern was transferred from [facility] to a regular floor, seen and assessed 1420. Patient's and sister were present for a portion of the visit. Patient presents sitting upright in bed. Denies dyspnea, pain or distress. Oxygen saturations in high 90s on 3L via nasal cannula. Follow-up chest x-ray improved on 06/03/2017, showing mild basilar airspace disease. No pneumothorax. Small left effusion. Mr. Mcgovern is more alert today than the last time I saw him. He continues have a delayed response to questions, remains somewhat confused. Insight and judgement toward his medical conditions continues to be limited - ongoing recommendations for joint decision-making. Lab work from 06/05/2017 reviewed: == WBC: 9.1, hemoglobin 10.7, hematocrit 31.8, platelets 140, neutrophils 72.4% == Sodium: 142, potassium 5.0, chloride 102, carbon dioxide 26.5, glucose 72, calcium 9.3, phosphorus 4.9, magnesium 1.9 == BUN: 56, creatinine 9.33, GFR 5 == Total bili: 1.1, AST 22, ALT 23, alkaline phosphatase 56 == Total protein: 6.2, albumin 2.3 Generalized weakness and muscle atrophy in BLE is noted. Patient's oral intake is poor per who states, "He doesn't like institutional food." Requesting patient's diet be changed to REGULAR DIET. . Family/friend interactions Spoke with patient and sister at bedside. Patient is NPO pending planned procedures sometime today (Vascath placement; PD cath manipulation). Updated provided on patient's current clinical condition, questions answered to the best of ability. Patient stating the patient was on an antidepressant during his last hospitalization, and she feels he would benefit from having this medication restarted. In reviewing previous notes, it appears the patient was on Celexa 20 mg daily and Remeron 15 mg qHS during his most recent hospitalization in March,. . Advance Directives Living Will: Copy in medical record Health Care Surrogate: Copy in medical record Advance Directive Specifics Date completed: 04/07/2017?? . Health Care Surrogate(s): HCS form completed 04/07 without year included names patient's (Jolynn) as the healthcare decision-maker. Per [place] statutes, in the absence of written advanced directives healthcare proxy decision making would fall to the patient' s . . Documented care wishes: Patient completed a living will on 04/07 with no year included. It states if the patient were to be diagnosed with a terminal condition, ES condition or be in a persistent vegetative states with no reasonable chance of recovery he would would want life prolonging procedures withheld or withdrawn and be allowed to pass peacefully and naturally with only interventions or procedures that would provide comfort. However, patient's states that this is not what patient would want. She does not think the patient understood what he was "saying" when he signed the document. . Objective Vital Signs Date Time Temp Pulse Resp B/P (MAP) Pulse Ox O2 Delivery O2 Flow Rate FiO2 06/05/17 10:04 97 Nasal Cannula 3.00 06/05/17 08:00 97.5 41 18 156/71 (99) 95 06/05/17 04:00 57 06/05/17 04:00 98.6 62 18 126/60 (82) 97 06/05/17 00:00 97.8 60 18 116/58 (77) 96 06/05/17 00:00 66 06/04/17 22:27 98 Nasal Cannula 3.00 06/04/17 20:00 97.4 63 19 115/59 (77) 95 06/04/17 20:00 Nasal Cannula 2.00 06/04/17 20:00 66 06/04/17 16:00 72 06/04/17 15:40 98.9 71 20 116/58 (77) 95 06/04/17 11:20 98.2 68 20 116/55 (75) 96 Intake & Output 06/05/17 06/05/17 07:00 19:00 Intake Total 120 ml Output Total 0 ml Balance 120 ml 0 ml Intake Oral 120 ml Peritoneal Fluid 0 ml # Voids 1 # Bowel Movements 1 . Physical Exam CONSTITUTIONAL/GENERAL: This is a chronically ill appearing, elderly male patient in no acute distress TUBES/LINES/DRAINS: PIV, CVL, PD catheter, nasal cannula SKIN: No jaundice, rashes, or lesions. Ecchymoses on upper extremities. No wounds seen anteriorly. Skin temperature appropriate. Not diaphoretic. HEAD: Atraumatic. Normocephalic. EYES: Pupils equal and round and reactive. Extraocular motions intact. No scleral icterus. No injection or drainage. Fundi not examined. ENT: Nose without bleeding or purulent drainage. NECK: Trachea midline. Supple, nontender. No palpable thyroid enlargement or nodularity. CARDIOVASCULAR: Regular rate and rhythm without murmurs, gallops, or rubs. No JVD. Peripheral pulses symmetric. RESPIRATORY/CHEST: Respirations unlabored. CTA. No wheezing, rhonchi or rales. GASTROINTESTINAL: Abdomen soft, non-tender, nondistended. No hepato-splenomegaly , or palpable masses. No guarding. Bowel sounds present. GENITOURINARY: Without palpable bladder distension. MUSCULOSKELETAL: Extremities without clubbing, cyanosis, or edema. Muscle atrophy and nonhealing wounds are noted to lower extremities bilaterally. LYMPHATICS: No palpable cervical or supraclavicular adenopathy. NEUROLOGICAL: Awake and alert. Slightly confused. responds slowly to questions, follows simple commands. Limited insight or judgment related to his current medical conditions. PSYCHIATRIC: No obvious anxiety/depression. No apparent hallucinations or other psychotic thought process. . Diagnostic Tests Laboratory Laboratory Tests Test 06/03/17 05:00 06/04/17 05:55 06/05/17 10:51 White Blood Count 10.9 TH/MM3 (4.0-11.0) 10.1 TH/MM3 (4.0-11.0) Red Blood Count 3.37 MIL/MM3 (4.50-5.90) 3.18 MIL/MM3 (4.50-5.90) Hemoglobin 10.6 GM/DL (13.0-17.0) 10.0 GM/DL (13.0-17.0) Hematocrit 31.4 % (39.0-51.0) 29.6 % (39.0-51.0) Mean Corpuscular Volume 93.1 FL (80.0-100.0) 93.2 FL (80.0-100.0) Mean Corpuscular Hemoglobin 31.6 PG (27.0-34.0) 31.4 PG (27.0-34.0) Mean Corpuscular Hemoglobin Concent 33.9 % (32.0-36.0) 33.6 % (32.0-36.0) Red Cell Distribution Width 17.0 % (11.6-17.2) 17.2 % (11.6-17.2) Platelet Count 113 TH/MM3 (150-450) 114 TH/MM3 (150-450) Mean Platelet Volume 8.9 FL (7.0-11.0) 8.8 FL (7.0-11.0) Neutrophils (%) (Auto) 78.8 % (16.0-70.0) 74.3 % (16.0-70.0) Lymphocytes (%) (Auto) 8.7 % (9.0-44.0) 11.5 % (9.0-44.0) Monocytes (%) (Auto) 7.6 % (0.0-8.0) 7.5 % (0.0-8.0) Eosinophils (%) (Auto) 4.5 % (0.0-4.0) 5.9 % (0.0-4.0) Basophils (%) (Auto) 0.4 % (0.0-2.0) 0.8 % (0.0-2.0) Neutrophils # (Auto) 8.6 TH/MM3 (1.8-7.7) 7.5 TH/MM3 (1.8-7.7) Lymphocytes # (Auto) 0.9 TH/MM3 (1.0-4.8) 1.2 TH/MM3 (1.0-4.8) Monocytes # (Auto) 0.8 TH/MM3 (0-0.9) 0.8 TH/MM3 (0-0.9) Eosinophils # (Auto) 0.5 TH/MM3 (0-0.4) 0.6 TH/MM3 (0-0.4) Basophils # (Auto) 0.0 TH/MM3 (0-0.2) 0.1 TH/MM3 (0-0.2) CBC Comment AUTO DIFF AUTO DIFF Differential Total Cells Counted 100 Neutrophils % (Manual) 83 % (16-70) Band Neutrophils % 1 % (0-6) Lymphocytes % 4 % (9-44) Monocytes % 6 % (0-8) Eosinophils % 5 % (0-4) Neutrophils # (Manual) 9.3 TH/MM3 (1.8-7.7) Myelocytes 1 % (0-0) Differential Comment FINAL DIFF MANUAL AUTO DIFF CONFIRMED Hypersegmented Polys 1+ (NORMAL) 1+ (NORMAL) Platelet Estimate LOW (NORMAL) LOW (NORMAL) Platelet Morphology Comment NORMAL (NORMAL) NORMAL (NORMAL) Blood Urea Nitrogen 47 MG/DL (7-18) 48 MG/DL (7-18) Creatinine 7.84 MG/DL (0.60-1.30) 8.66 MG/DL (0.60-1.30) Random Glucose 99 MG/DL (74-106) 83 MG/DL (74-106) Total Protein 6.0 GM/DL (6.4-8.2) 5.6 GM/DL (6.4-8.2) Albumin 2.3 GM/DL (3.4-5.0) 2.1 GM/DL (3.4-5.0) Calcium Level 8.9 MG/DL (8.5-10.1) 8.9 MG/DL (8.5-10.1) Phosphorus Level 4.0 MG/DL (2.5-4.9) 4.7 MG/DL (2.5-4.9) Magnesium Level 1.8 MG/DL (1.5-2.5) 1.8 MG/DL (1.5-2.5) Alkaline Phosphatase 53 U/L (45-117) 52 U/L (45-117) Aspartate Amino Transf (AST/SGOT) 23 U/L (15-37) 26 U/L (15-37) Alanine Aminotransferase (ALT/SGPT) 24 U/L (12-78) 21 U/L (12-78) Total Bilirubin 0.9 MG/DL (0.2-1.0) 0.9 MG/DL (0.2-1.0) Sodium Level 138 MEQ/L (136-145) 140 MEQ/L (136-145) Potassium Level 3.2 MEQ/L (3.5-5.1) 4.4 MEQ/L (3.5-5.1) Chloride Level 98 MEQ/L (98-107) 102 MEQ/L (98-107) Carbon Dioxide Level 28.0 MEQ/L (21.0-32.0) 24.0 MEQ/L (21.0-32.0) Anion Gap 12 MEQ/L (5-15) 14 MEQ/L (5-15) Estimat Glomerular Filtration Rate 7 ML/MIN (>89) 6 ML/MIN (>89) Ovalocytes 1+ (NORMAL) . Result Diagram: 06/04/17 0555 06/04/17 0555 Microbiology Microbiology Date/Time Source Procedure Growth Status 06/03/17 05:00 Stool Stool Stool Occult Blood (ISAIAH) - Final HEMOCCULT NEGATIVE Complete . Imaging Last 72 hours Impressions Chest X-Ray 06/03/17 0600 Signed Impressions: Service Date/Time: Saturday, June 03, 2017 04:30 - CONCLUSION: 1. Left IJ line tip in the left brachiocephalic vein. Mild basilar airspace disease. No pneumothorax. Layo Mathews MD . Procedures 05/22/2017: Left IJ CVL placed 05/22/2017: Intubation 05/23/2017: Extubation 05/27/2017: Reintubation 06/01/2017: Extubation . Assessment and Plan Disease Oriented Problem List: (1) Troponin level elevated (2) Elevated CK (3) Elevated brain natriuretic peptide (BNP) level (4) Hyperlipidemia (5) Hypertension (6) NSTEMI (non-ST elevated myocardial infarction) (7) Peritoneal dialysis catheter dysfunction (8) Acute on chronic kidney failure (9) COPD (chronic obstructive pulmonary disease) (10) CHF (congestive heart failure) (11) Seizures (12) Lacunar infarct, acute (13) C. difficile colitis (14) Bronchial obstruction (15) Anemia (16) Pneumonia Symptom Scale: (1) Encephalopathy 0-10 Scale: Unable to quantify (2) Dyspnea 0-10 Scale: Unable to quantify (3) Debility 0-10 Scale: Unable to quantify (4) Depression 0-10 Scale: Unable to quantify Pertinent Non-Medical Issues Psychosocial:Patient is originally from the [place]. He is an only child. His mother during childbirth and his father at the age of 50 from an [place]. He has been to his for approximately 57 years. They moved to [place] 44 years ago. They have 2 adult children, 1 daughter and 1 son. 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 Spiritual: Episcopal pauline Legal:Decision making: HCS form completed 04/07 without year included names patient's (Jolynn) as the healthcare decision-maker. Per [place] statutes, in the absence of written advanced directives healthcare proxy decision making would fall to the patient's . Ethical issues impacting care: No known ethical issues impacting care at this time. . Important Contacts Jolynn Mcgovern, spouse: [phone] . Prognosis Patient is an 82-year-old male with multiple comorbidities who has exhibited an acute decline over the past 6 months. Patient is currently requiring ventilator support secondary to respiratory failure and cognitive deficits. MRI on 2017 suspicious for embolic ischemic events. Patient is high risk for ongoing decline and complications. . Code Status: Full Code Plan * FULL CODE * Decision making: HCS form completed 04/07 without year included names patient' s (Jolynn) as the healthcare decision-maker. Per [place] statutes, in the absence of written advanced directives healthcare proxy decision making would fall to the patient's . * Insight and judgement toward his medical conditions continues to be limited - ongoing recommendations for joint decision-making. * AGGRESSIVE GOALS * Discussed patient/family's current medical treatment goals with RN (Liz) and casework supervisor (Uriel). * Symptom management: == Dyspnea: Resolved. Patient presented to ED for evaluation of shortness of breath and hypoxemic episode. Patient was medically extubated 06/01/17; patient denies shortness of breath on exam. Follow-up chest x-ray improved, showing mild basilar airspace disease. No pneumothorax. Small left effusion. == Debility: Patient has experienced an acute decline in the past several months secondary to recent stroke with associated seizures and NSTEMI in 2017. Patient received 4 weeks of rehab at [facility] for rehabilitation; he was then transferred to a care home facility for additional therapy. Upon discharge [facility] on 05/05/17, the patient was total assist for mobility and ADLs; he was tolerating a regular consistency diet with thin liquids although he did require assistance and supervision during mealtimes. Patient has been accepted back to [facility] upon discharge, but the family is requesting [place] rehab. == Depression: Patient's stating the patient was on an antidepressant during his last hospitalization, and she feels he would benefit from having this medication restarted, but she cannot remember what medication he was taking. In reviewing previous notes, it appears the patient was on Celexa 20 mg daily and Remeron 15 mg qHS during his most recent hospitalization in March,. == Encephalopathy: Mr. Mcgovern is more alert today than the last time I saw him. He continues have a delayed response to questions, remains somewhat confused. He is able to answer some simple questions but is slow to respond. While the patient is able to recall the events leading up to the initial stroke in 03/2017, his evacuation from [facility] to [place] and the rehab that followed, he is unable to remember most of the current hospital course. * Palliative care will continue to follow this patient throughout his hospitalization to establish trust, assist with symptom management and clarification of medical treatment goals. . Attestation To help prompt me to consider important information that might be impacting today's encounter and assessment, information from prior notes written by myself or my colleagues may have been "brought forward" into today's note. My signature on this note, however, is an attestation that I personally performed the exam, history, and/or decision-making noted today, and, unless otherwise indicated, the interactions with patient, family, and staff as well as the review of records all occurred today. I also attest that the listed assessment and stated plan reflect my best clinical judgment today based on the combination of historical information, prior notes, and today's exam/ interactions. When time spent is documented, it refers only to time spent today by the signer, or if indicated, combined time spent today by collaborating physician/nurse practitioner. . Dayna Henson Jun 05, 2017 11:24
[2017-06-05 11:25] LABS: AUTOMATED NEUTROPHIL # 6.6 TH/MM3 (1.8-7.7); BASOPHIL # 0.1 TH/MM3 (0-0.2); BASOPHIL % 0.7 % (0.0-2.0); EOSINOPHIL # 0.4 TH/MM3 (0-0.4); EOSINOPHIL % 4.7 % (0.0-4.0); HEMATOCRIT 31.8 % (39.0-51.0); HEMOGLOBIN 10.7 GM/DL (13.0-17.0); LYMPH % 13.9 % (9.0-44.0); LYMPHOCYTE # 1.3 TH/MM3 (1.0-4.8); MEAN CELL VOLUME 92.5 FL (80.0-100.0); MEAN CORPUSCULAR HEMOGLOBIN 31.2 PG (27.0-34.0); MEAN CORPUSCULAR HGB CONC 33.8 % (32.0-36.0); MEAN PLATELET VOLUME 8.3 FL (7.0-11.0); MONO % 8.3 % (0.0-8.0); MONOCYTE # 0.8 TH/MM3 (0-0.9); NEUT % 72.4 % (16.0-70.0); PLATELET COUNT 140 TH/MM3 (150-450); RED BLOOD COUNT 3.44 MIL/MM3 (4.50-5.90); RED CELL DISTRIBUTION WIDTH 17.3 % (11.6-17.2); WHITE BLOOD COUNT 9.1 TH/MM3 (4.0-11.0)
[2017-06-05 11:48] LABS: ALBUMIN 2.3 GM/DL (3.4-5.0); ALT (GPT) 23 U/L (12-78); AST (GOT) 22 U/L (15-37); BICARBONATE 26.5 MEQ/L (21.0-32.0); BLOOD UREA NITROGEN 56 MG/DL (7-18); CALCIUM 9.3 MG/DL (8.5-10.1); CHLORIDE 102 MEQ/L (98-107); CREATININE 9.33 MG/DL (0.60-1.30); GLOMERULAR FILTRATION RATE 5 ML/MIN (>89); GLUCOSE,RANDOM 72 MG/DL (74-106); MAGNESIUM 1.9 MG/DL (1.5-2.5); SODIUM (NA) 142 MEQ/L (136-145)
[2017-06-05 11:51] LABS: ALKALINE PHOSPHATASE 56 U/L (45-117); PHOSPHORUS 4.9 MG/DL (2.5-4.9); TOTAL BILIRUBIN ADULT 1.1 MG/DL (0.2-1.0); TOTAL PROTEIN 6.2 GM/DL (6.4-8.2)
--- NOTE | 2017-06-05 11:51 | HHI.PR ---
Subjective Remarks Remains on O2 2 L Needs PT and OT.Will go for new Vas catheter. CXR is better Objective Vital Signs Date Time Temp Pulse Resp B/P (MAP) Pulse Ox O2 Delivery O2 Flow Rate FiO2 06/05/17 10:04 97 Nasal Cannula 3.00 06/05/17 08:00 97.5 41 18 156/71 (99) 95 06/05/17 04:00 57 06/05/17 04:00 98.6 62 18 126/60 (82) 97 06/05/17 00:00 97.8 60 18 116/58 (77) 96 06/05/17 00:00 66 06/04/17 22:27 98 Nasal Cannula 3.00 06/04/17 20:00 97.4 63 19 115/59 (77) 95 06/04/17 20:00 Nasal Cannula 2.00 06/04/17 20:00 66 06/04/17 16:00 72 06/04/17 15:40 98.9 71 20 116/58 (77) 95 I/O 06/04/17 06/04/17 06/04/17 06/05/17 06/05/17 06/05/17 07:00 15:00 23:00 07:00 15:00 23:00 Intake Total 50 ml 600 ml 120 ml Output Total 638 ml 0 ml Balance -588 ml 600 ml 120 ml 0 ml Intake Oral 600 ml 120 ml IV Total 50 ml Peritoneal Fluid 638 ml 0 ml # Voids 1 1 # Bowel Movements 1 1 Result Diagram: 06/05/17 1051 06/04/17 0555 Objective Remarks GENERAL: This moderately obese, elderly man alert. He has some weakness of the left extremities. HEENT: Head is normocephalic. Pupils are reactive. Tongue is clear. Throat was clear. Nasal mucosa is clear. NECK: Supple, no bruits or thyroid enlargement. CHEST: Distant breath sounds with occasional Basal crackles +. HEART: The heart sounds were irregular, S1 and S2 with no murmur. ABDOMEN: Soft, protuberant with Bowel sounds active. No organomegaly. EXTREMITIES: No edema and decreased peripheral pulses. Reflexes 1+. The patient does have some weakness of the lower extremities as well. Assessment and Plan Assessment and Plan IMPRESSION: 1. Atelectasis left lung with left pleural effusion,resolved 2. History of cerebrovascular accident. 3. Hypertension. 4. History of chronic bronchitis and reactive airways. 5. End-stage renal disease and on peritoneal dialysis. 6. Obstructive sleep apnea, on CPAP. Plan : 1. O2 3 L and wean. 2. PT and OT 3. IR fo vas cath placement 4. Duonebs tid. 5. CPAP at HS as Before 6. IS at bedside q3h 7. CBC , BMP in am 8. Diet soft with aspiration precaution Chela Hogue MD Jun 05, 2017 11:51
[2017-06-05] MEDS ORDERED: MIDAZOLAM HCL 2 MG/2 ML VIAL ONE (12:18)
[2017-06-05] MEDS ORDERED: fentaNYL CITRATE 250 MCG/5 ML AMP ONE (12:18)
--- NOTE | 2017-06-05 13:10 | PD.RAD ---
Post Procedure Progress Note Pre Procedure Diagnosis: (1) Chronic kidney disease (2) Peritoneal dialysis catheter dysfunction (3) ESRD (end stage renal disease) on dialysis Post Procedure Diagnosis: (1) ESRD (end stage renal disease) on dialysis (2) Peritoneal dialysis catheter dysfunction (3) Chronic kidney disease Procedure Date: Jun 05, 2017 Supervising Radiologist: Gelacio Allen Proceduralist/Assist: Naz Bray, RT(R), Maya Amin RT(R) Anesthesia: Local, Analgesia, Conscious Sedation Plan of Activity Patient to Unit: ROPU Patient Condition: Good See PACS Report for procedural detail/treatment Drainage Procedure Procedure 1 Imaging Guidance: Fluoroscopy Procedure Type: Peritoneal Catheter Tunneled Procedure: Reposition, Evaluation Fluid Description: Clear Findings: Loop in left paracolic gutter. Repositioned more cephalad. Widely patent. Excellent flow. No fibrin sheath Central Venous Access Device Procedure 1 Right Internal Jugular Hemodialysis Catheter Non-Tunneled Placement dual lumen Romansh: 14 PICC Line Length (cm): 15 Gelacio Allen MD Jun 05, 2017 13:10
[2017-06-05] MEDS ORDERED: IOHEXOL 350 MG/ML 50 ML BTL (for RAD DIAG) OTHER ONE (13:44)
[2017-06-05] MEDS: ACETAMINOPHEN 325 MG TAB PO PRN ×2 (14:03→17:53)
--- NOTE | 2017-06-05 14:05 | HHI.NPPN ---
Subjective General Problems: Anemia Renal Failure: Chronic, End Stage Renal Disease Interval History PD catheter not working. Negative UF last night. He went for catheter study/ manipulation and vascath placement today. D/W . (Jania Gallagher) Review of Systems Respiratory Lungs: SOB, Cough (Jania Gallagher) Cardiovascular Cardiac: Edema (Jania Gallagher) Objective Data Data 06/05/17 06/06/17 19:00 07:00 Output Total 0 ml Balance 0 ml Peritoneal Fluid 0 ml Vital Signs Date Time Temp Pulse Resp B/P (MAP) Pulse Ox O2 Delivery O2 Flow Rate FiO2 06/05/17 13:19 67 18 143/74 (97) 97 06/05/17 13:04 97.1 66 19 144/76 (98) 96 06/05/17 12:00 98.0 64 18 161/76 (104) 97 06/05/17 10:04 97 Nasal Cannula 3.00 06/05/17 08:00 97.5 41 18 156/71 (99) 95 06/05/17 04:00 57 06/05/17 04:00 98.6 62 18 126/60 (82) 97 06/05/17 00:00 97.8 60 18 116/58 (77) 96 06/05/17 00:00 66 06/04/17 22:27 98 Nasal Cannula 3.00 06/04/17 20:00 97.4 63 19 115/59 (77) 95 06/04/17 20:00 Nasal Cannula 2.00 06/04/17 20:00 66 06/04/17 16:00 72 06/04/17 15:40 98.9 71 20 116/58 (77) 95 (Jania Gallagher) -: 06/05/17 1051 06/05/17 1051 Imaging Last 72 hours Impressions Chest X-Ray 06/03/17 0600 Signed Impressions: Service Date/Time: Saturday, June 03, 2017 04:30 - CONCLUSION: 1. Left IJ line tip in the left brachiocephalic vein. Mild basilar airspace disease. No pneumothorax. Layo Mathews MD Tubes & Lines: Vas-Cath, Tenckhoff Catheter (Jania Gallagher) Physical Exam General Appearance: Well Developed, No Acute Distress, Comfortable Appearance Remarks chronically ill appearing (Jania Gallagher) Eyes Eye Exam: Pupils Equal, Pupils Reactive (Jania Gallagher) Throat Throat Exam: Oral Mucosa Meyer & Moist (Jania Gallagher) Neck Neck Exam: Neck Supple (Jania Gallagher) Pulmonary Resp Exam: No Distress, Crackles, Rhonchi, Decreased Bases (Jania Gallagher) Cardiology CV Exam: Regular, Normal Sinus Rhythm, Good Perfusion (Jania Gallagher) Gastrointestinal/Abdomen GI Exam: Soft, Non-Tender, Positive Bowel Movement (Jania Gallagher) Musculoskeletal MS Exam: Joints Intact, Atrophy, Unable to Ambulate (Jania Gallagher) Integumentary Skin Exam: Warm, Dry, Intact Skin Remarks multiple abrasions/scars to lower extremities (Jania Gallagher) Extremeties Extremities Exam: No Edema, Pedal Pulses Palpable Extremeties Remarks bilateral foot drop upper extremity edema (Jania Gallagher) Neurologic Neuro Exam: Alert, Awake, Speech Clear (Jania Gallagher) Psychiatric Psych Exam: Appropriate Responses (Jania Gallagher) Assessment/Plan Discussed Condition With: Patient Assessment Summary: Anemia of CKD, Malnutrition, Hypotension, End Stage Renal Disease Problem List: (1) End stage renal disease ICD Codes: N18.6 - End stage renal disease Status: Chronic Plan: Resume nightly PD. Orders: 9 hr treatment time; 4 cycles of 2500 ml with no last fill. We will use 2.5% dextrose PD solution tonight. s/p catheter repositioning, it was in left paracolic gutter. Now reported to be widely patent. If low UF or poor flow, consider converting to HD as needed. Lasix is held Avoid IVF administration Hold phosphorus binders for now, resume as appetite improves On daily KCL replacement, reduced to 20 meq Intermittently monitor renal profile. Monitor fluid status , avoid IVF. (2) Bronchial obstruction ICD Codes: J98.09 - Other diseases of bronchus, not elsewhere classified Status: Acute Plan: He had redeveloped atelectasis of the left lung. S/p bronch. s/p extubation Pulmonary toilet (3) Hypoxia ICD Codes: R09.02 - Hypoxemia Status: Resolved Plan: Improved, monitor pulmonary status (4) Pneumonia ICD Codes: J18.9 - Pneumonia Status: Resolved Plan: Blood cultures have been negative so far On Zosyn (5) Hypertension ICD Codes: I10 - Essential (primary) hypertension Status: Chronic Plan: BP improved Resume antihypertensives if needed (6) Anemia ICD Codes: D64.9 - Anemia, unspecified Status: Chronic Plan: Given Epogen on 06/04/17 (7) CVA (cerebral vascular accident) ICD Codes: I63.9 - Cerebral infarction, unspecified Plan: ROBERT negative On ASA and statin. Needs aggressive PT (Jania Gallagher) Plan patient was seen and examined. Above note reviewed and agree with assessment and plan. We consulted IR for PD catheter manipulation and also a vascath placement in case PD catheter does not work again today: we have had problems with it before. It is possible that there wrapping of omentum/scar tissue around it. Stop Potassium supplementation for now. PD again tonight, if necessary HD tomorrow. (Gabriel Salcedo MD) Jania Gallagher Jun 05, 2017 14:05 Gabriel Salcedo MD Jun 05, 2017 15:48
--- NOTE | 2017-06-05 14:37 | RADRPT ---
EXAM DATE/TIME: 06/05/2017 11:56 [place] COMPARISON: TEMP DIALYSIS CATHETER [facility] W/US, RIGHT, February 28, 2017, 14:23. INDICATIONS : Patient presents with elevated BUN and Creatinine in need of temporary dialysis catheter. MEDICAL HISTORY : HTN Afib possible COPD ESRD on PD CVA- residual right sided weakness SURGICAL HISTORY : Tonsilectomy PD cathter placement ENCOUNTER: Initial ACUITY: 1 day PAIN SCORE: 6/10 LOCATION: legs FLUORO TIME: 1.7 minutes IMAGE SERIES: 1 SEDATION TIME: 30minutes ACCESS: Right internal jugular vein MEDICATION(S): 1.) 1.5 mg midazolam (Versed) IV 2.) 75 mcg fentanyl (Sublimaze) IV DEVICE(S): 1.) 14 Uzbek dual lumen 15 cm Schon catheter PROCEDURE : 1. Ultrasound guided venipuncture. 2. Fluoroscopic guidance. 3. Central line placement. The risks, benefits and alternatives to the procedure were explained and verbal and written consent w as obtained. The site was prepped in sterile fashion. Full sterile technique was used, including ca p, mask, sterile gloves and gown and a large sterile sheet. Hand hygiene and 2% chlorhexidine prep w as utilized per protocol for cutaneous antisepsis with appropriate dry time for site. Sterile gel an d sterile probe cover were utilized for ultrasound guidance. The skin and subcutaneous tissues were infiltrated with local anesthetic solution. A suitable site a brien the vein was selected with ultrasound and fluoroscopic guidance. A small incision was made. Th e vein was accessed under direct ultrasound visualization using the micropuncture technique. The liya ropuncture set was exchanged for a 0.035 wire. The tract was dilated. The catheter was advanced int o position under direct fluoroscopic visualization. The catheter was fixed in place with suture and a sterile dressing was applied. The patient tolerated the procedure well and there were no complications. CONCLUSION: Uncomplicated line placement as above. Gelacio Allen MD on June 05, 2017 at 14:34 Board Certified Radiologist. This report was verified electronically.
--- NOTE | 2017-06-05 14:39 | RADRPT ---
EXAM DATE/TIME: 06/05/2017 11:56 [place] COMPARISON: PERITONEOGRAM, March 03, 2017, 0:00. INDICATIONS : Patient presents with non draining PD cathhere for evaluation and possible reposition. MEDICAL HISTORY : HTN Afib possible COPD ESRD on PD CVA- residual right sided weakness SURGICAL HISTORY : Tonsilectomy PD Cath Placement ENCOUNTER: Initial ACUITY: 1 day PAIN SCORE: 6/10 LOCATION: Bilateral legs FLUORO TIME: 1.7 minutes IMAGE SERIES: 1 SEDATION TIME: 30minutes CONTRAST: 10 cc Omnipaque (iohexol) 350 ACCESS: Left PD Cath MEDICATION(S): 1.) 1.5 mg midazolam (Versed) IV 2.) 75 mcg fentanyl (Sublimaze) IV PROCEDURE : 1. evaluation and manipulation of the peritoneal dialysis catheter 2. Conscious sedation The risks, benefits and alternatives to the procedure were explained and verbal and written consent w as obtained. The site was prepped in sterile fashion. Full sterile technique was used, including ca p, mask, sterile gloves and gown and a large sterile sheet. Hand hygiene and 2% chlorhexidine and/or betadine/alcohol prep was utilized per protocol for cutaneous antisepsis. The skin and subcutaneous tissues were infiltrated with local anesthetic solution. Initial injection showed the loop of the peroneal dialysis catheter in the mid to inferior left parac olic gutter. Contrast showed some minimal retention but, in general, contrast flowed fairly freely. C atheter was accessed with a stiff straight glide wire and the [place] loop was pushed more cephalad. Thi s immediately produced a large amount of fluid flowing from the catheter. Contrast injection again sh owed free flow from the distal loop. CONCLUSION: Successful repositioning and manipulation of the left paracolic gutter peritoneal dialysis brayan ter as above. Gelacio Allen MD on June 05, 2017 at 14:34 Board Certified Radiologist. This report was verified electronically.
[2017-06-05] MEDS: levETIRAcetam 250 MG TAB PO SCH (21:34)
[2017-06-05] MEDS: ATORVASTATIN 80 MG TAB PO SCH (21:34)
[2017-06-06] VITALS (10 sets, daily range): BP systolic 120–160; BP diastolic 57–72; PULSE 54–67; RESP 16–20; TEMP 97.9–100; O2SAT 93–99
[2017-06-06] MEDS: ACETAMINOPHEN 325 MG TAB PO PRN (00:27)
[2017-06-06] MEDS: BENZONATATE 100 MG CAP PO PRN (00:27)
[2017-06-06 06:53] LABS: AUTOMATED NEUTROPHIL # 5.4 TH/MM3 (1.8-7.7); BASOPHIL # 0.1 TH/MM3 (0-0.2); BASOPHIL % 0.9 % (0.0-2.0); EOSINOPHIL # 0.3 TH/MM3 (0-0.4); EOSINOPHIL % 4.3 % (0.0-4.0); HEMATOCRIT 28.1 % (39.0-51.0); HEMOGLOBIN 9.6 GM/DL (13.0-17.0); LYMPH % 13.7 % (9.0-44.0); MEAN CELL VOLUME 92.3 FL (80.0-100.0); MEAN CORPUSCULAR HEMOGLOBIN 31.5 PG (27.0-34.0); MEAN CORPUSCULAR HGB CONC 34.1 % (32.0-36.0); MEAN PLATELET VOLUME 7.6 FL (7.0-11.0); MONO % 9.4 % (0.0-8.0); MONOCYTE # 0.7 TH/MM3 (0-0.9); NEUT % 71.7 % (16.0-70.0); PLATELET COUNT 124 TH/MM3 (150-450); RED BLOOD COUNT 3.04 MIL/MM3 (4.50-5.90); RED CELL DISTRIBUTION WIDTH 17.5 % (11.6-17.2); WHITE BLOOD COUNT 7.5 TH/MM3 (4.0-11.0)
[2017-06-06 07:18] LABS: AST (GOT) 20 U/L (15-37); BICARBONATE 25.3 MEQ/L (21.0-32.0); BLOOD UREA NITROGEN 51 MG/DL (7-18); CHLORIDE 104 MEQ/L (98-107); CREATININE 9.29 MG/DL (0.60-1.30); GLOMERULAR FILTRATION RATE 5 ML/MIN (>89); GLUCOSE,RANDOM 72 MG/DL (74-106); MAGNESIUM 1.7 MG/DL (1.5-2.5); SODIUM (NA) 141 MEQ/L (136-145)
[2017-06-06 07:22] LABS: ALKALINE PHOSPHATASE 47 U/L (45-117); ALT (GPT) 18 U/L (12-78); PHOSPHORUS 5.4 MG/DL (2.5-4.9); TOTAL PROTEIN 5.4 GM/DL (6.4-8.2)
[2017-06-06] MEDS: CHLORHEXIDINE 0.12% (ORAL KIT) 15 ML CUP MT SCH ×2 (08:00→20:00)
[2017-06-06] MEDS: INSULIN ASPART SUPPLEMENTAL SCALE SQ SCH ×4 (08:00→21:23)
[2017-06-06] MEDS: TIOTROPIUM BROMIDE 18 MCG INH INH SCH (08:36)
[2017-06-06] MEDS: BUDESONIDE-FORMOTEROL 160/4.5 MCG INHALER INH SCH ×2 (08:36→21:15)
[2017-06-06] MEDS: CALCITRIOL 0.25 MCG CAP PO SCH (08:37)
[2017-06-06] MEDS: guaiFENesin SOLUTION 200 MG/10 ML CUP PO SCH ×2 (08:37→21:16)
[2017-06-06] MEDS: levETIRAcetam 500 MG TAB PO SCH (08:37)
[2017-06-06] MEDS: SODIUM CHLORIDE 0.9% FLUSH 10 ML FLUSH IV FLUSH SCH ×2 (08:37→21:15)
[2017-06-06] MEDS: LACTOBACILLUS ACIDOPHILUS TAB PO SCH ×3 (08:37→17:09)
[2017-06-06] MEDS: CLOPIDOGREL 75 MG TAB PO SCH (08:37)
[2017-06-06] MEDS: SENNOSIDES SYRUP 8.8 MG/5 ML CUP PO SCH (08:38)
[2017-06-06] MEDS: DOCUSATE SODIUM 100 MG CAP PO SCH ×2 (08:38→21:16)
[2017-06-06] MEDS: ASPIRIN EC 81 MG TABEC PO SCH (08:42)
[2017-06-06] MEDS ORDERED: POTASSIUM CHLORIDE 20 MEQ CONTROLLED RELEASE TAB PO SCH (09:00)
[2017-06-06] MEDS: HEPARIN SODIUM - SQ 10,000 UNITS/ML VIAL SQ SCH ×2 (12:26→22:43)
--- NOTE | 2017-06-06 12:36 | HHI.PR ---
Subjective Remarks VAS cath placed yesterday 06/05 had ultrafiltration done this d/w - states sometimes PD cath needs to be repositioned at night sometimes she would like to continue with PD as much as possible and will d/w Dr. Long - will reevaluate PD cath for the meantime agrees with HD for now Objective Vitals Vital Signs Date Time Temp Pulse Resp B/P (MAP) Pulse Ox O2 Delivery O2 Flow Rate FiO2 06/06/17 08:00 99.1 60 16 157/68 (97) 98 06/06/17 04:00 98.1 56 16 129/62 (84) 96 06/06/17 03:55 54 06/06/17 00:00 58 06/06/17 00:00 98.2 61 16 140/63 (88) 93 06/06/17 00:00 Nasal Cannula 2.00 Humidified 06/06/17 00:00 98.2 61 16 140/63 (88) 93 06/05/17 20:22 Nasal Cannula 3.00 06/05/17 20:00 98.2 59 16 106/50 (68) 97 06/05/17 20:00 63 06/05/17 20:00 Humidified 2.00 06/05/17 13:49 72 17 142/72 (95) 98 06/05/17 13:19 67 18 143/74 (97) 97 06/05/17 13:04 97.1 66 19 144/76 (98) 96 I/O 06/05/17 06/05/17 06/05/17 06/06/17 06/06/17 06/06/17 07:00 15:00 23:00 07:00 15:00 23:00 Intake Total 120 ml 480 ml Output Total 0 ml 781 ml Balance 120 ml 0 ml 480 ml -781 ml Intake Oral 120 ml 480 ml Peritoneal Fluid 0 ml 781 ml # Voids 1 1 # Bowel Movements 1 3 Result Diagram: 06/06/17 0640 06/06/1740 Imaging Last Impressions Peritoneogram w/Contrast 06/05/17 0000 Signed Impressions: Service Date/Time: Monday, June 05, 2017 11:56 - CONCLUSION: Successful repositioning and manipulation of the left paracolic gutter peritoneal dialysis catheter as above. Gelacio Allen MD Catheter Placement X-Ray 06/05/17 0000 Signed Impressions: Service Date/Time: Monday, June 05, 2017 11:56 - CONCLUSION: Uncomplicated line placement as above. Gelacio Allen MD Chest X-Ray 06/03/17 0600 Signed Impressions: Service Date/Time: Saturday, June 03, 2017 04:30 - CONCLUSION: 1. Left IJ line tip in the left brachiocephalic vein. Mild basilar airspace disease. No pneumothorax. Layo Mathews MD Neck Magnetic Resonance Angiography 05/28/17 0000 Signed Impressions: Service Date/Time: May 12:13 - CONCLUSION: 1. Moderately limited examination due to motion degradation. 2. No significant flow-limiting stenosis demonstrated although portions of the internal carotid arteries and distal vertebral arteries are not sufficiently evaluated. Hunter Daniel MD Head Magnetic Resonance Angiography 05/28/17 0000 Signed Impressions: Service Date/Time: May 12:13 - CONCLUSION: 1. Unremarkable curyung of [place] MRA examination. Specifically, no evidence for large vessel occlusion or significant aneurysm. Hunter Daniel MD Chest CT 05/27/17 0000 Signed Impressions: Service Date/Time: Saturday, May 27, 2017 12:16 - CONCLUSION: 1. There is normal aeration of the left upper lobe. However, there is abnormal material within the left lower lobe bronchus with collapse of the left lower lobe. 2. There is a new right lower lobe airspace consolidation and new small left pleural effusion. 3. There is new small volume of free fluid in the upper abdomen. 4. 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 Joe Curry MD Brain MRI 05/27/17 0000 Signed Impressions: Service Date/Time: Saturday, May 27, 2017 11:45 - CONCLUSION: Marked central and cortical atrophy with periventricular white matter changes Minimal focal areas of restricted diffusion in both occipital lobes and left cerebellar hemisphere Suspicious for embolic ischemic event. Kian Adkins MD FACR Head CT 05/22/17 0000 Signed Impressions: Service Date/Time: Monday, May 22, 2017 12:22 - CONCLUSION: Negative for acute process Kian Adkins MD FACR Abdomen X-Ray 05/22/17 0000 Signed Impressions: Service Date/Time: Monday, May 22, 2017 10:27 - CONCLUSION: No evidence of obstruction. Nasogastric tube across the GE junction. No free air. Kian Adkins MD FACR Objective Remarks awake and alert, oriented x 3, speech clear but soft, more interactive and smiling anicteric VAS cath in place lungs- decreased breath sounds, no wheezes, no rales regular rhythm abdomen-soft, good bowel sounds, PD catheter in place extremities no edema moves all extremities spontaneously- A/P Assessment and Plan 82 years old male Acute hypoxemic respiratory failure extubated 05/23, re intubated 05/27/17, extubated on 06/01, doing well postextubation S/p opacification of left lung due to mucous plug - improved air entry Underlying COPD -Pulmonary Dr. Brown ff -S/P zosyn 06/04 Bronchodilators ( DuoNeb). Mucomyst neb. Inhaled budesonide. Completed steroids s/p bronchoscopy 05/28/2017 large amount of thick mucoid secretions removed from bilateral lower lobe segmental bronchi s/p bronch 05/22 - thick mucoid secretions on left suctioned to clear. Follow up on BAL results-negative to date Pulm is following- Dr. Hogue. On Symbicort and Spiriva Needs CPAP at night Supplemental O2 during daytime to keep SPO2 above 90% Delirium/metabolic encephalopathy -much improved Embolic stroke bilateral occipital lobes, left cerebellar - PT/OT daily - Neurology ff Possible pneumonia -cultures so far have been negative to date - s/p zosyn ESRD on peritoneal dialysis. PD catheter not functioning HYpokalemia- improved -Nephrology ff. S/P VAS cath placement 06/05 - ff lytes and replace d/w - agrees with HD for now but would like him to continue on PD as much as possible- states this would occur intermittently she will discuss with Dr. Long History of hypertension CAD, s/p CALLIE to RCA in Mar -continue Plavix/ASA CV: Monitor HR and BP and maintain MAP> 65 mmHg. Echo in February showed EF of 55-60% with no regional wall motion abnormalities. ROBERT negative for cardiac source of emboli 05/29/17 Continue with aspirin, Plavix, Lipitor. ID: Off Vanco and azithromycin Cultures have been negative to date Removed central line 06/03 Endo: SSI with Accu-Chek for glycemic control.- states non diabetic. will DC monitoring Heme: Monitor CBC. DVT prophylaxis with SCDs/ heparin sub-Q requested to restart Citalopram Palliative care following to address goals of care-patient overall declining over the last several months. 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 CM- DC planning- need SNF- for more intensive PT Gume Andrade MD Jun 06, 2017 12:36
--- NOTE | 2017-06-06 14:58 | HHI.NPPN ---
Subjective General Problems: Anemia Renal Failure: Chronic, End Stage Renal Disease Additional Remarks Tolerated PD last night, no acute complaints. Review of Systems Respiratory Lungs: SOB, Cough Cardiovascular Cardiac: Edema Objective Data Data 06/06/17 06/07/17 19:00 07:00 Output Total 781 ml Balance -781 ml Peritoneal Fluid 781 ml Vital Signs Date Time Temp Pulse Resp B/P (MAP) Pulse Ox O2 Delivery O2 Flow Rate FiO2 06/06/17 12:00 99.5 64 16 160/72 (101) 99 06/06/17 08:00 99.1 60 16 157/68 (97) 98 06/06/17 04:00 98.1 56 16 129/62 (84) 96 06/06/17 03:55 54 06/06/17 00:00 58 06/06/17 00:00 98.2 61 16 140/63 (88) 93 06/06/17 00:00 Nasal Cannula 2.00 Humidified 06/06/17 00:00 98.2 61 16 140/63 (88) 93 06/05/17 20:22 Nasal Cannula 3.00 06/05/17 20:00 98.2 59 16 106/50 (68) 97 06/05/17 20:00 63 06/05/17 20:00 Humidified 2.00 -: 06/06/17 0640 06/06/17 0640 Tubes & Lines: Vas-Cath, Tenckhoff Catheter Physical Exam General Appearance: Well Developed, No Acute Distress, Comfortable Eyes Eye Exam: Pupils Equal, Pupils Reactive Throat Throat Exam: Oral Mucosa Declo & Moist Neck Neck Exam: Neck Supple Pulmonary Resp Exam: No Distress, Crackles, Rhonchi, Decreased Bases Cardiology CV Exam: Regular, Normal Sinus Rhythm, Good Perfusion Gastrointestinal/Abdomen GI Exam: Soft, Non-Tender, Positive Bowel Movement Musculoskeletal MS Exam: Joints Intact, Atrophy, Unable to Ambulate Integumentary Skin Exam: Warm, Dry, Intact Extremeties Extremities Exam: No Edema, Pedal Pulses Palpable Neurologic Neuro Exam: Alert, Awake, Speech Clear Psychiatric Psych Exam: Appropriate Responses Assessment/Plan Discussed Condition With: Patient Assessment Summary: Anemia of CKD, Malnutrition, Hypotension, End Stage Renal Disease Problem List: (1) End stage renal disease ICD Codes: N18.6 - End stage renal disease Status: Chronic Plan: Continue nightly PD. Orders: 9 hr treatment time; 4 cycles of 2500 ml with no last fill. We will use 2.5% dextrose PD solution tonight. s/p catheter repositioning, it was in left paracolic gutter. Now reported to be widely patent. Tolerated PD well last night, 700cc UF. If low UF or poor flow, consider converting to HD as needed. (Vascath placed yesterday, can D/C later this week if PD remains stable) Lasix is held Avoid IVF administration Hold phosphorus binders for now, resume as appetite improves Monitor K - 4.5 today, K+ supplements on hold. Intermittently monitor renal profile. Monitor fluid status , avoid IVF. (2) Bronchial obstruction ICD Codes: J98.09 - Other diseases of bronchus, not elsewhere classified Status: Acute Plan: He had redeveloped atelectasis of the left lung. S/p bronch. s/p extubation Pulmonary toilet (3) Hypoxia ICD Codes: R09.02 - Hypoxemia Status: Resolved Plan: Improved, monitor pulmonary status (4) Pneumonia ICD Codes: J18.9 - Pneumonia Status: Resolved Plan: Blood cultures have been negative so far On Zosyn (5) Hypertension ICD Codes: I10 - Essential (primary) hypertension Status: Chronic Plan: BP improved Resume antihypertensives if needed (6) Anemia ICD Codes: D64.9 - Anemia, unspecified Status: Chronic Plan: Given Epogen on 06/04/17 (7) CVA (cerebral vascular accident) ICD Codes: I63.9 - Cerebral infarction, unspecified Plan: ROBERT negative On ASA and statin. Needs aggressive PT Timmy Long MD Jun 06, 2017 14:58
--- NOTE | 2017-06-06 16:51 | HHI.PR ---
Subjective Remarks 82 YOWM with ESRD, on PD Mild sob On 3LNC No Cough or sp no CP Objective Vital Signs Vital Signs Date Time Temp Pulse Resp B/P (MAP) Pulse Ox O2 Delivery O2 Flow Rate FiO2 06/06/17 12:00 99.5 64 16 160/72 (101) 99 06/06/17 08:00 99.1 60 16 157/68 (97) 98 06/06/17 04:00 98.1 56 16 129/62 (84) 96 06/06/17 03:55 54 06/06/17 00:00 58 06/06/17 00:00 98.2 61 16 140/63 (88) 93 06/06/17 00:00 Nasal Cannula 2.00 Humidified 06/06/17 00:00 98.2 61 16 140/63 (88) 93 06/05/17 20:22 Nasal Cannula 3.00 06/05/17 20:00 98.2 59 16 106/50 (68) 97 06/05/17 20:00 63 06/05/17 20:00 Humidified 2.00 I/O 06/05/17 06/05/17 06/05/17 06/06/17 06/06/17 06/06/17 07:00 15:00 23:00 07:00 15:00 23:00 Intake Total 120 ml 480 ml Output Total 0 ml 781 ml Balance 120 ml 0 ml 480 ml -781 ml Intake Oral 120 ml 480 ml Peritoneal Fluid 0 ml 781 ml # Voids 1 1 # Bowel Movements 1 3 Result Diagram: 06/06/17 0640 06/06/17 0640 Objective Remarks GENERAL: Elderly Wm,NAD SKIN: Warm and dry. HEAD: Normocephalic. EYES: No scleral icterus. No injection or drainage. NECK: Supple, trachea midline. No JVD or lymphadenopathy. CARDIOVASCULAR: Regular rate and rhythm without murmurs, gallops, or rubs. RESPIRATORY: Breath sounds equal bilaterally. No accessory muscle use. GASTROINTESTINAL: Abdomen soft, non-tender, nondistended. MUSCULOSKELETAL: No cyanosis, or edema. BACK: Nontender without obvious deformity. No CVA tenderness. A/P Assessment and Plan IMPRESSION: Dysnoea Pleural effusion, improved Atelactesis ESRD on PD MIRELA PLAN: CPAP at night Aerosol nebs Supplement 02 PD Miguel Espinosa MD Jun 06, 2017 16:51
[2017-06-06] MEDS: levETIRAcetam 250 MG TAB PO SCH (21:15)
[2017-06-06] MEDS: ATORVASTATIN 80 MG TAB PO SCH (21:16)
[2017-06-07] VITALS (11 sets, daily range): BP systolic 136–150; BP diastolic 67–82; PULSE 57–64; RESP 18–19; TEMP 97.5–98.8; O2SAT 94–98
[2017-06-07 07:58] LABS: AUTOMATED NEUTROPHIL # 5.7 TH/MM3 (1.8-7.7); BASOPHIL # 0.1 TH/MM3 (0-0.2); BASOPHIL % 0.8 % (0.0-2.0); EOSINOPHIL # 0.3 TH/MM3 (0-0.4); EOSINOPHIL % 3.7 % (0.0-4.0); HEMATOCRIT 28.3 % (39.0-51.0); HEMOGLOBIN 9.6 GM/DL (13.0-17.0); LYMPH % 13.8 % (9.0-44.0); LYMPHOCYTE # 1.1 TH/MM3 (1.0-4.8); MEAN CELL VOLUME 92.5 FL (80.0-100.0); MEAN CORPUSCULAR HEMOGLOBIN 31.4 PG (27.0-34.0); MEAN CORPUSCULAR HGB CONC 33.9 % (32.0-36.0); MEAN PLATELET VOLUME 7.6 FL (7.0-11.0); MONO % 9.1 % (0.0-8.0); MONOCYTE # 0.7 TH/MM3 (0-0.9); NEUT % 72.6 % (16.0-70.0); PLATELET COUNT 129 TH/MM3 (150-450); RED BLOOD COUNT 3.06 MIL/MM3 (4.50-5.90); RED CELL DISTRIBUTION WIDTH 17.1 % (11.6-17.2); WHITE BLOOD COUNT 7.9 TH/MM3 (4.0-11.0)
[2017-06-07] MEDS: INSULIN ASPART SUPPLEMENTAL SCALE SQ SCH ×4 (08:00→21:00)
[2017-06-07] MEDS: CHLORHEXIDINE 0.12% (ORAL KIT) 15 ML CUP MT SCH ×2 (08:00→20:00)
[2017-06-07 08:23] LABS: ALT (GPT) 17 U/L (12-78); AST (GOT) 21 U/L (15-37); BICARBONATE 25.8 MEQ/L (21.0-32.0); BLOOD UREA NITROGEN 47 MG/DL (7-18); CALCIUM 8.8 MG/DL (8.5-10.1); CHLORIDE 105 MEQ/L (98-107); CREATININE 9.29 MG/DL (0.60-1.30); GLOMERULAR FILTRATION RATE 5 ML/MIN (>89); GLUCOSE,RANDOM 81 MG/DL (74-106); SODIUM (NA) 143 MEQ/L (136-145)
[2017-06-07 08:26] LABS: ALKALINE PHOSPHATASE 46 U/L (45-117); TOTAL PROTEIN 5.4 GM/DL (6.4-8.2)
[2017-06-07] MEDS: CLOPIDOGREL 75 MG TAB PO SCH (09:37)
[2017-06-07] MEDS: CITALOPRAM HYDROBROMIDE 20 MG TAB PO SCH (09:37)
[2017-06-07] MEDS: LACTOBACILLUS ACIDOPHILUS TAB PO SCH ×3 (09:37→18:24)
[2017-06-07] MEDS: levETIRAcetam 500 MG TAB PO SCH (09:37)
[2017-06-07] MEDS: ASPIRIN EC 81 MG TABEC PO SCH (09:38)
[2017-06-07] MEDS: guaiFENesin SOLUTION 200 MG/10 ML CUP PO SCH ×2 (09:38→21:12)
[2017-06-07] MEDS: DOCUSATE SODIUM 100 MG CAP PO SCH ×2 (09:38→21:12)
[2017-06-07] MEDS: CALCITRIOL 0.25 MCG CAP PO SCH (09:38)
[2017-06-07] MEDS: SENNOSIDES SYRUP 8.8 MG/5 ML CUP PO SCH (09:39)
[2017-06-07] MEDS: SODIUM CHLORIDE 0.9% FLUSH 10 ML FLUSH IV FLUSH SCH ×2 (09:39→21:12)
[2017-06-07] MEDS: BUDESONIDE-FORMOTEROL 160/4.5 MCG INHALER INH SCH ×2 (09:40→21:13)
--- NOTE | 2017-06-07 10:20 | HHI.PR ---
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 Plan continue plavix and asa since rehab Diagnosis/Plan: Subjective Subjective Comments No acute events reported No headache Active Medications Current Medications Medications (Trade) Dose Ordered Sig/[place] Route Start Time Stop Time Status Last Admin (Narcan Inj) 0.4 mg UNSCH PRN IV PUSH 05/21/17 16:30 (Duoneb Neb) 1 ampule Q4HR NEB PRN NEB 05/21/17 16:30 06/05/17 10:04 (Tessalon) 100 mg TID PRN PO 05/21/17 18:00 06/06/17 00:27 (Ecotrin Ec) 81 mg DAILY PO 05/22/17 09:00 06/07/17 09:38 (Lipitor) 80 mg HS PO 05/21/17 21:00 06/06/17 21:16 (Rocaltrol) 0.25 mcg DAILY PO 05/22/17 09:00 06/07/17 09:38 (Neurontin) 100 mg BID PO 05/21/17 21:00 Future Hold 05/25/17 20:29 (Apresoline) 10 mg Q8HR PO 05/21/17 22:00 Future Hold 05/25/17 06:00 (Imdur) 30 mg DAILY PO 05/22/17 09:00 Future Hold (Lactinex) 1 tab TID PO 05/22/17 09:00 06/07/17 09:37 (Keppra) 250 mg HS PO 05/21/17 21:00 06/06/17 21:15 (Keppra) 500 mg DAILY PO 05/22/17 09:00 06/07/17 09:37 (NS Inj) 10 ml WITH DIALYSIS PRN IV FLUSH 05/21/17 19:00 (Heparin Inj) Add 1000 units of Hepa... WITH DIALYSIS PRN IV FLUSH 05/21/17 19:00 Miscellaneous Information Patient in critical care unit? Ass... [id number] .XX 05/22/17 06:30 05/22/17 19:00 (Brethine Inj) 1 mg UNSCH PRN SQ 05/22/17 07:00 (Heparin Inj) 1,000 units WITH DIALYSIS PRN XX 05/22/17 09:00 (NS Flush) 10 ml UNSCH PRN IV FLUSH 05/22/17 09:00 (Lasix Inj) 40 mg DAILY IV PUSH 05/23/17 09:00 Future Hold 05/25/17 08:42 (Robitussin Liq) 600 mg BID PO 05/24/17 12:00 06/07/17 09:38 (Colace) 100 mg BID PO 05/24/17 21:00 06/07/17 09:38 (Senna Liq) 8.8 mg DAILY PO 05/24/17 18:00 06/07/17 09:39 (Spiriva Inh) 18 mcg DAILY INH 05/25/17 16:00 06/06/17 08:36 (Symbicort 160-4.5 Mcg Inh) 1 puff Q12HR INH 05/25/17 21:00 06/07/17 09:40 (Peridex 0.12% Liq) 15 ml BID@08,20 MT 05/27/17 20:00 06/06/17 08:00 (Lactulose Liq) 30 ml QID PRN PO 05/28/17 14:15 (NS Flush) 2 ml BID IV FLUSH 05/28/17 21:00 06/07/17 09:39 (NS Flush) 2 ml UNSCH PRN IV FLUSH 05/28/17 18:30 (NovoLOG SUPPLEMENTAL SCALE) 1 ACHS SQ 05/28/17 21:00 06/06/17 21:23 (D50w (Vial) Inj) 50 ml UNSCH PRN IV PUSH 05/28/17 18:30 (Glucagon Inj) 1 mg UNSCH PRN OTHER 05/28/17 18:30 (Plavix) 75 mg DAILY PO 05/29/17 10:30 06/07/17 09:37 (Heparin Inj) 5,000 units Q12H SQ 05/29/17 11:00 06/06/17 22:43 (Tylenol) 650 mg Q4H PRN PO 06/03/17 21:30 06/06/17 00:27 (CeleXA) 10 mg DAILY PO 06/07/17 09:00 06/07/17 09:37 Allergies Allergies Coded Allergies No Known Allergies (Unverified Allergy, Unknown, 05/21/17) Exam I&O / VS Vital Signs Date Time Temp Pulse Resp B/P (MAP) Pulse Ox O2 Delivery O2 Flow Rate FiO2 06/07/17 08:09 98.2 60 19 142/77 (98) 97 06/07/17 04:00 97.5 58 18 141/80 (100) 98 06/07/17 04:00 Nasal Cannula 2.00 06/07/17 03:56 59 06/07/17 00:01 57 06/07/17 00:00 98.2 59 18 138/67 (90) 94 06/07/17 00:00 Nasal Cannula 2.00 35 Humidified 06/06/17 20:24 61 06/06/17 20:00 97.9 61 20 120/57 (78) 97 06/06/17 20:00 Nasal Cannula 2.00 35 Humidified 06/06/17 16:13 61 06/06/17 16:00 100.0 67 16 151/69 (96) 96 06/06/17 12:01 62 06/06/17 12:00 99.5 64 16 160/72 (101) 99 Respiratory: Lungs CTA, Non-labored respirations, BS equal Cardiology: Normal rate, No edema, Regular Rhythm Musculoskeletal: No calf tenderness Exam Comments much more alert. follow commands PERRL. No Ptosis He has some mild dysconjugate gaze MOTOR--equal damage cutter bilateral Objective Micro and Labs Laboratory Tests Test 06/07/17 06:20 White Blood Count 7.9 Red Blood Count 3.06 Hemoglobin 9.6 Hematocrit 28.3 Mean Corpuscular Volume 92.5 Mean Corpuscular Hemoglobin 31.4 Mean Corpuscular Hemoglobin Concent 33.9 Red Cell Distribution Width 17.1 Platelet Count 129 Mean Platelet Volume 7.6 Neutrophils (%) (Auto) 72.6 Lymphocytes (%) (Auto) 13.8 Monocytes (%) (Auto) 9.1 Eosinophils (%) (Auto) 3.7 Basophils (%) (Auto) 0.8 Neutrophils # (Auto) 5.7 Lymphocytes # (Auto) 1.1 Monocytes # (Auto) 0.7 Eosinophils # (Auto) 0.3 Basophils # (Auto) 0.1 CBC Comment DIFF FINAL Differential Comment Blood Urea Nitrogen 47 Creatinine 9.29 Random Glucose 81 Total Protein 5.4 Albumin 2.0 Calcium Level 8.8 Alkaline Phosphatase 46 Aspartate Amino Transf (AST/SGOT) 21 Alanine Aminotransferase (ALT/SGPT) 17 Total Bilirubin 1.0 Sodium Level 143 Potassium Level 3.8 Chloride Level 105 Carbon Dioxide Level 25.8 Anion Gap 12 Estimat Glomerular Filtration Rate 5 Date/Time Source Procedure Growth Status 05/26/17 10:20 Blood Peripheral Aerobic Blood Culture - Final NO GROWTH IN 5 DAYS Complete 05/26/17 10:20 Blood Peripheral Anaerobic Blood Culture - Final NO GROWTH IN 5 DAYS Complete 05/26/17 09:00 Fluid Peritoneal Fluid Gram Stain - Final Complete 05/26/17 09:00 Fluid Peritoneal Fluid Body Fluid Culture - Final NO GROWTH IN 72 HRS.--AEROBICALLY OR ... Complete 06/03/17 05:00 Stool Stool Stool Occult Blood (ISAIAH) - Final HEMOCCULT NEGATIVE Complete 05/28/17 10:32 Bronchial Washings Right Lower Lobe Fungal Smear - Final NO FUNGAL ELEMENTS SEEN. Resulted 05/28/17 10:32 Bronchial Washings Right Lower Lobe Fungal Culture - Preliminary NO GROWTH IN 1 WEEK Resulted Avery Brizuela MD PhD Jun 07, 2017 10:20
[2017-06-07] MEDS: HEPARIN SODIUM - SQ 10,000 UNITS/ML VIAL SQ SCH ×2 (12:25→23:50)
--- NOTE | 2017-06-07 12:48 | HHI.PR ---
Subjective Remarks awake and alert, interactive no complains of pain no nausea or vomiting or abdominal pain PD catheter working Objective Vitals Vital Signs Date Time Temp Pulse Resp B/P (MAP) Pulse Ox O2 Delivery O2 Flow Rate FiO2 06/07/17 08:09 98.2 60 19 142/77 (98) 97 06/07/17 04:00 97.5 58 18 141/80 (100) 98 06/07/17 04:00 Nasal Cannula 2.00 06/07/17 03:56 59 06/07/17 00:01 57 06/07/17 00:00 98.2 59 18 138/67 (90) 94 06/07/17 00:00 Nasal Cannula 2.00 35 Humidified 06/06/17 20:24 61 06/06/17 20:00 97.9 61 20 120/57 (78) 97 06/06/17 20:00 Nasal Cannula 2.00 35 Humidified 06/06/17 16:13 61 06/06/17 16:00 100.0 67 16 151/69 (96) 96 I/O 06/06/17 06/06/17 06/06/17 06/07/17 06/07/17 06/07/17 07:00 15:00 23:00 07:00 15:00 23:00 Intake Total 240 ml Output Total 781 ml 502 ml Balance -781 ml 240 ml -502 ml Intake Oral 240 ml Peritoneal Fluid 781 ml 502 ml # Voids 5 # Bowel Movements 3 2 Result Diagram: 06/07/17 0620 06/07/17 0620 Imaging Last Impressions Peritoneogram w/Contrast 06/05/17 0000 Signed Impressions: Service Date/Time: Monday, June 05, 2017 11:56 - CONCLUSION: Successful repositioning and manipulation of the left paracolic gutter peritoneal dialysis catheter as above. Gelacio Allen MD Catheter Placement X-Ray 06/05/17 0000 Signed Impressions: Service Date/Time: Monday, June 05, 2017 11:56 - CONCLUSION: Uncomplicated line placement as above. Gelacio Allen MD Chest X-Ray 06/03/17 0600 Signed Impressions: Service Date/Time: Saturday, June 03, 2017 04:30 - CONCLUSION: 1. Left IJ line tip in the left brachiocephalic vein. Mild basilar airspace disease. No pneumothorax. Layo Mathews MD Neck Magnetic Resonance Angiography 05/28/17 0000 Signed Impressions: Service Date/Time: May 12:13 - CONCLUSION: 1. Moderately limited examination due to motion degradation. 2. No significant flow-limiting stenosis demonstrated although portions of the internal carotid arteries and distal vertebral arteries are not sufficiently evaluated. Hunter Daniel MD Head Magnetic Resonance Angiography 05/28/17 0000 Signed Impressions: Service Date/Time: May 12:13 - CONCLUSION: 1. Unremarkable [place] MRA examination. Specifically, no evidence for large vessel occlusion or significant aneurysm. Hunter Daniel MD Chest CT 05/27/17 0000 Signed Impressions: Service Date/Time: Saturday, May 27, 2017 12:16 - CONCLUSION: 1. There is normal aeration of the left upper lobe. However, there is abnormal material within the left lower lobe bronchus with collapse of the left lower lobe. 2. There is a new right lower lobe airspace consolidation and new small left pleural effusion. 3. There is new small volume of free fluid in the upper abdomen. 4. 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 Joe Curry MD Brain MRI 05/27/17 0000 Signed Impressions: Service Date/Time: Saturday, May 27, 2017 11:45 - CONCLUSION: Marked central and cortical atrophy with periventricular white matter changes Minimal focal areas of restricted diffusion in both occipital lobes and left cerebellar hemisphere Suspicious for embolic ischemic event. iKan Adkins MD FACR Head CT 05/22/17 0000 Signed Impressions: Service Date/Time: Monday, May 22, 2017 12:22 - CONCLUSION: Negative for acute process Kian Adkins MD FACR Abdomen X-Ray 05/22/17 0000 Signed Impressions: Service Date/Time: Monday, May 22, 2017 10:27 - CONCLUSION: No evidence of obstruction. Nasogastric tube across the GE junction. No free air. Kian Adkins MD FACR Objective Remarks awake and alert, oriented x 3, speech clear but soft, interactive anicteric VAS cath in place lungs- decreased breath sounds, no wheezes, no rales regular rhythm abdomen-soft, good bowel sounds, PD catheter in place extremities no edema, moves all extremities spontaneously- generalized weakness A/P Assessment and Plan 82 years old male Acute hypoxemic respiratory failure extubated 05/23, re intubated 05/27/17, extubated on 06/01, doing well postextubation S/p opacification of left lung due to mucous plug - improved air entry Underlying COPD -Pulmonary Dr. Brown ff -S/P zosyn 06/04 Bronchodilators ( DuoNeb). Mucomyst neb. Inhaled budesonide. Completed steroids s/p bronchoscopy 05/28/2017 large amount of thick mucoid secretions removed from bilateral lower lobe segmental bronchi s/p bronch 05/22 - thick mucoid secretions on left suctioned to clear. Follow up on BAL results-negative to date Pulm is following- Dr. Hogue. On Symbicort and Spiriva Needs CPAP at night Supplemental O2 during daytime to keep SPO2 above 90% Delirium/metabolic encephalopathy -Resolved Embolic stroke bilateral occipital lobes, left cerebellar - PT/OT daily - Neurology ff - needs rehab - continue citalopram Possible pneumonia -cultures so far have been negative to date - s/p zosyn ESRD on peritoneal dialysis. PD catheter - now working well HYpokalemia-resolved -Nephrology ff. S/P VAS cath placement 06/05 d/w - agrees with HD for now but would like him to continue on PD as much as possible- states this would occur intermittently she will discuss with Dr. Long remove Vas cath if PD catheter continues to work efficiently History of hypertension CAD, s/p CALLIE to RCA in Mar -continue Plavix/ASA Echo in February showed EF of 55-60% with no regional wall motion abnormalities. ROBERT negative for cardiac source of emboli 05/29/17 Continue with aspirin, Plavix, Lipitor. ID: Off Vanco and azithromycin Cultures have been negative to date Removed central line 06/03 Endo: SSI with Accu-Chek for glycemic control.- states non diabetic. will DC monitoring Heme: Monitor CBC. DVT prophylaxis with SCDs/ heparin sub-Q Palliative care following to address goals of care-patient overall declining over the last several months. 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 CM- DC planning- need SNF- for more intensive PT will ask CM- if he can go to [facility] - any days left if not- SNF of choice- Gume Macias MD Jun 07, 2017 12:48
--- NOTE | 2017-06-07 13:12 | HHI.NPPN ---
Subjective General Problems: Anemia Renal Failure: Chronic, End Stage Renal Disease Additional Remarks Tolerated PD last 2 nights, no acute complaints. Review of Systems Respiratory Lungs: SOB, Cough Cardiovascular Cardiac: Edema Objective Data Data 06/07/17 06/08/17 18:59 06:59 Output Total 502 ml Balance -502 ml Peritoneal Fluid 502 ml Vital Signs Date Time Temp Pulse Resp B/P (MAP) Pulse Ox O2 Delivery O2 Flow Rate FiO2 06/07/17 08:09 98.2 60 19 142/77 (98) 97 06/07/17 04:00 97.5 58 18 141/80 (100) 98 06/07/17 04:00 Nasal Cannula 2.00 06/07/17 03:56 59 06/07/17 00:01 57 06/07/17 00:00 98.2 59 18 138/67 (90) 94 06/07/17 00:00 Nasal Cannula 2.00 35 Humidified 06/06/17 20:24 61 06/06/17 20:00 97.9 61 20 120/57 (78) 97 06/06/17 20:00 Nasal Cannula 2.00 35 Humidified 06/06/17 16:13 61 06/06/17 16:00 100.0 67 16 151/69 (96) 96 -: 06/07/17 0620 06/07/17 0620 Tubes & Lines: Vas-Cath, Tenckhoff Catheter Physical Exam General Appearance: Well Developed, No Acute Distress, Comfortable Eyes Eye Exam: Pupils Equal, Pupils Reactive Throat Throat Exam: Oral Mucosa [place] & Moist Neck Neck Exam: Neck Supple Pulmonary Resp Exam: No Distress, Crackles, Rhonchi, Decreased Bases Cardiology CV Exam: Regular, Normal Sinus Rhythm, Good Perfusion Gastrointestinal/Abdomen GI Exam: Soft, Non-Tender, Positive Bowel Movement Musculoskeletal MS Exam: Joints Intact, Atrophy, Unable to Ambulate Integumentary Skin Exam: Warm, Dry, Intact Extremeties Extremities Exam: No Edema, Pedal Pulses Palpable Neurologic Neuro Exam: Alert, Awake, Speech Clear Psychiatric Psych Exam: Appropriate Responses Assessment/Plan Discussed Condition With: Patient Assessment Summary: Anemia of CKD, Malnutrition, Hypotension, End Stage Renal Disease Problem List: (1) End stage renal disease ICD Codes: N18.6 - End stage renal disease Status: Chronic Plan: Continue nightly PD. Orders: 9 hr treatment time; 4 cycles of 2500 ml with no last fill. We will use 2.5% dextrose PD solution tonight. s/p catheter repositioning, it was in left paracolic gutter. Now reported to be widely patent. Tolerated PD well last 2 nights: 700cc UF, 500cc UF. (Vascath placed Thursday in case of PD catheter issues, can D/C tomorrow PD remains stable) Lasix is held Hold phosphorus binders for now, resume as appetite improves Monitor K - 3.8 today, K+ supplements on hold. Intermittently monitor renal profile. Monitor fluid status , avoid IVF. (2) Bronchial obstruction ICD Codes: J98.09 - Other diseases of bronchus, not elsewhere classified Status: Acute Plan: He had redeveloped atelectasis of the left lung. S/p bronch. s/p extubation Pulmonary toilet (3) Hypoxia ICD Codes: R09.02 - Hypoxemia Status: Resolved Plan: Improved, monitor pulmonary status (4) Pneumonia ICD Codes: J18.9 - Pneumonia Status: Resolved Plan: Blood cultures have been negative so far On Zosyn (5) Hypertension ICD Codes: I10 - Essential (primary) hypertension Status: Chronic Plan: BP improved Resume antihypertensives if needed (6) Anemia ICD Codes: D64.9 - Anemia, unspecified Status: Chronic Plan: Given Epogen on 06/04/17 (7) CVA (cerebral vascular accident) ICD Codes: I63.9 - Cerebral infarction, unspecified Plan: ROBERT negative On ASA and statin. Needs aggressive PT Timmy Long MD Jun 07, 2017 13:12
[2017-06-07] MEDS: TIOTROPIUM BROMIDE 18 MCG INH INH SCH (15:05)
--- NOTE | 2017-06-07 16:38 | HHI.PR ---
Subjective Remarks 82 YOWM with ESRD, on PD Mild sob On 3LNC No Cough or sp no CP Had PD last night at [facility] He gets anxious, agitated, dismayed Objective Vital Signs Vital Signs Date Time Temp Pulse Resp B/P (MAP) Pulse Ox O2 Delivery O2 Flow Rate FiO2 06/07/17 12:09 98.0 58 19 136/82 (100) 97 06/07/17 12:00 62 06/07/17 08:09 98.2 60 19 142/77 (98) 97 06/07/17 08:00 60 06/07/17 08:00 Nasal Cannula 2.00 06/07/17 04:00 97.5 58 18 141/80 (100) 98 06/07/17 04:00 Nasal Cannula 2.00 06/07/17 03:56 59 06/07/17 00:01 57 06/07/17 00:00 98.2 59 18 138/67 (90) 94 06/07/17 00:00 Nasal Cannula 2.00 35 Humidified 06/06/17 20:24 61 06/06/17 20:00 97.9 61 20 120/57 (78) 97 06/06/17 20:00 Nasal Cannula 2.00 35 Humidified I/O 06/06/17 06/06/17 06/06/17 06/07/17 06/07/17 06/07/17 07:00 15:00 23:00 07:00 15:00 23:00 Intake Total 240 ml Output Total 781 ml 502 ml Balance -781 ml 240 ml -502 ml Intake Oral 240 ml Peritoneal Fluid 781 ml 502 ml # Voids 5 # Bowel Movements 3 2 Result Diagram: 06/07/17 0620 06/07/17 0620 Objective Remarks GENERAL: Elderly Wm,NAD SKIN: Warm and dry. HEAD: Normocephalic. EYES: No scleral icterus. No injection or drainage. NECK: Supple, trachea midline. No JVD or lymphadenopathy. CARDIOVASCULAR: Regular rate and rhythm without murmurs, gallops, or rubs. RESPIRATORY: Breath sounds equal bilaterally. No accessory muscle use. GASTROINTESTINAL: Abdomen soft, non-tender, nondistended. MUSCULOSKELETAL: No cyanosis, or edema. BACK: Nontender without obvious deformity. No CVA tenderness. A/P Assessment and Plan IMPRESSION: Dysnoea Pleural effusion, improved Atelactesis ESRD on PD MIRELA PLAN: CPAP at night Aerosol nebs Supplement 02 PD DW pt and his will FU in AM. Miguel Espinosa MD Jun 07, 2017 16:38
[2017-06-07] MEDS: ATORVASTATIN 80 MG TAB PO SCH (21:12)
[2017-06-07] MEDS: levETIRAcetam 250 MG TAB PO SCH (21:12)
[2017-06-08] VITALS (7 sets, daily range): BP systolic 135–162; BP diastolic 64–88; PULSE 53–56; RESP 17–20; TEMP 97.8–98.8; O2SAT 95–98
[2017-06-08 07:02] LABS: BASOPHIL # 0.1 TH/MM3 (0-0.2); BASOPHIL % 0.9 % (0.0-2.0); EOSINOPHIL # 0.3 TH/MM3 (0-0.4); EOSINOPHIL % 4.6 % (0.0-4.0); HEMATOCRIT 28.8 % (39.0-51.0); HEMOGLOBIN 9.6 GM/DL (13.0-17.0); LYMPH % 15.8 % (9.0-44.0); LYMPHOCYTE # 0.9 TH/MM3 (1.0-4.8); MEAN CELL VOLUME 93.8 FL (80.0-100.0); MEAN CORPUSCULAR HEMOGLOBIN 31.4 PG (27.0-34.0); MEAN CORPUSCULAR HGB CONC 33.5 % (32.0-36.0); MEAN PLATELET VOLUME 7.5 FL (7.0-11.0); MONOCYTE # 0.6 TH/MM3 (0-0.9); NEUT % 67.7 % (16.0-70.0); PLATELET COUNT 111 TH/MM3 (150-450); RED BLOOD COUNT 3.07 MIL/MM3 (4.50-5.90); WHITE BLOOD COUNT 5.9 TH/MM3 (4.0-11.0)
[2017-06-08 07:34] LABS: CALCIUM 8.8 MG/DL (8.5-10.1); CREATININE 9.23 MG/DL (0.60-1.30)
[2017-06-08] MEDS: INSULIN ASPART SUPPLEMENTAL SCALE SQ SCH ×3 (08:39→17:27)
[2017-06-08] MEDS: CHLORHEXIDINE 0.12% (ORAL KIT) 15 ML CUP MT SCH (08:54)
[2017-06-08] MEDS: CLOPIDOGREL 75 MG TAB PO SCH (08:55)
[2017-06-08] MEDS: guaiFENesin SOLUTION 200 MG/10 ML CUP PO SCH (08:55)
[2017-06-08] MEDS: LACTOBACILLUS ACIDOPHILUS TAB PO SCH ×3 (08:55→18:26)
[2017-06-08] MEDS: CALCITRIOL 0.25 MCG CAP PO SCH (08:55)
[2017-06-08] MEDS: levETIRAcetam 500 MG TAB PO SCH (08:55)
[2017-06-08] MEDS: CITALOPRAM HYDROBROMIDE 20 MG TAB PO SCH (08:56)
[2017-06-08] MEDS: ASPIRIN EC 81 MG TABEC PO SCH (08:56)
[2017-06-08] MEDS: DOCUSATE SODIUM 100 MG CAP PO SCH (08:56)
[2017-06-08] MEDS: SENNOSIDES SYRUP 8.8 MG/5 ML CUP PO SCH (08:57)
[2017-06-08] MEDS: ACETAMINOPHEN 325 MG TAB PO PRN ×2 (08:57→13:23)
[2017-06-08] MEDS: SODIUM CHLORIDE 0.9% FLUSH 10 ML FLUSH IV FLUSH SCH (08:57)
[2017-06-08] MEDS: BUDESONIDE-FORMOTEROL 160/4.5 MCG INHALER INH SCH (08:58)
[2017-06-08] MEDS: TIOTROPIUM BROMIDE 18 MCG INH INH SCH (08:59)
--- NOTE | 2017-06-08 10:46 | HHI.NPPN ---
Subjective General Problems: Anemia Renal Failure: Chronic, End Stage Renal Disease Interval History PD catheter continues to work well. Eating breakfast. No new concerns. (Jania Gallagher) Review of Systems Respiratory Lungs: SOB, Cough (Jania Gallagher) Cardiovascular Cardiac: Edema (Jania Gallagher) Objective Data Data Vital Signs Date Time Temp Pulse Resp B/P (MAP) Pulse Ox O2 Delivery O2 Flow Rate FiO2 06/08/17 04:00 Nasal Cannula 2.00 06/08/17 04:00 53 06/08/17 04:00 97.8 56 18 135/64 (87) 97 06/08/17 00:01 55 06/08/17 00:00 98.8 56 17 162/71 (101) 95 06/08/17 00:00 Nasal Cannula 2.00 06/07/17 20:34 Nasal Cannula 2.00 06/07/17 20:00 Nasal Cannula 2.00 06/07/17 20:00 98.8 60 18 150/67 (94) 97 06/07/17 20:00 59 06/07/17 16:09 98.2 64 19 138/80 (99) 97 06/07/17 16:00 61 06/07/17 12:09 98.0 58 19 136/82 (100) 97 06/07/17 12:00 62 (Jania Gallagher) -: 06/08/17 0640 06/08/17 0640 Tubes & Lines: Vas-Cath, Tenckhoff Catheter (Jania Gallagher) Physical Exam General Appearance: Well Developed, No Acute Distress, Comfortable Appearance Remarks chronically ill appearing (Jania Gallagher) Eyes Eye Exam: Pupils Equal, Pupils Reactive (Jania Gallagher) Throat Throat Exam: Oral Mucosa [place] & Moist (Jania Gallagher) Neck Neck Exam: Neck Supple (Jania Gallagher) Pulmonary Resp Exam: No Distress, Crackles, Rhonchi, Decreased Bases (Jania Gallagher) Cardiology CV Exam: Regular, Normal Sinus Rhythm, Good Perfusion (Jania Gallagher) Gastrointestinal/Abdomen GI Exam: Soft, Non-Tender, Bowel Sounds Present (Jania Gallagher) Musculoskeletal MS Exam: Joints Intact, Atrophy, Unable to Ambulate (Jania Gallagher) Integumentary Skin Exam: Warm, Dry, Intact Skin Remarks multiple abrasions/scars to lower extremities (Jania Gallagher) Extremeties Extremities Exam: No Edema, Pedal Pulses Palpable Extremeties Remarks bilateral foot drop upper extremity edema (Jania Gallagher) Neurologic Neuro Exam: Alert, Awake, Speech Clear (Jania Gallagher) Psychiatric Psych Exam: Appropriate Responses (Jania Gallagher) Assessment/Plan Discussed Condition With: Patient Assessment Summary: Anemia of CKD, Malnutrition, Hypotension, End Stage Renal Disease Problem List: (1) End stage renal disease ICD Codes: N18.6 - End stage renal disease Status: Chronic Plan: Continue nightly PD. Orders: 9 hr treatment time; 4 cycles of 2500 ml with no last fill. We will use 1/5% and 2.5% dextrose PD solution tonight. s/p catheter repositioning (06/05), it was in left paracolic gutter. Now is widely patent. Remove vascath today Off diuretics KCL supplements stopped, high potassium diet encouraged. We have added protein supplements to meals. Resume phosphorus binders, repeat level in progress Intermittently monitor renal profile. Monitor fluid status , avoid IVF. (2) Bronchial obstruction ICD Codes: J98.09 - Other diseases of bronchus, not elsewhere classified Status: Acute Plan: He had redeveloped atelectasis of the left lung. S/p bronch. s/p extubation Pulmonary toilet (3) Hypoxia ICD Codes: R09.02 - Hypoxemia Status: Resolved Plan: Improved, monitor pulmonary status still on supplemental oxygen via [place] (4) Pneumonia ICD Codes: J18.9 - Pneumonia Status: Resolved Plan: Blood cultures negative to date Off antibiotics (5) Hypertension ICD Codes: I10 - Essential (primary) hypertension Status: Chronic Plan: BP improved Resume antihypertensives if needed (6) Anemia ICD Codes: D64.9 - Anemia, unspecified Status: Chronic Plan: Given Epogen on 06/04/17 (7) CVA (cerebral vascular accident) ICD Codes: I63.9 - Cerebral infarction, unspecified Plan: ROBERT negative On ASA and statin. Needs aggressive PT (Jania Gallagher) Problem List: (1) End stage renal disease ICD Codes: N18.6 - End stage renal disease Status: Chronic Plan: Continue nightly PD. Orders: 9 hr treatment time; 4 cycles of 2500 ml with no last fill. We will use 1/5% and 2.5% dextrose PD solution tonight. s/p catheter repositioning (06/05), it was in left paracolic gutter. Now is widely patent. Remove vascath today Off diuretics KCL supplements stopped, high potassium diet encouraged. We have added protein supplements to meals. Resume phosphorus binders, repeat level in progress Intermittently monitor renal profile. Monitor fluid status , avoid IVF. (2) Bronchial obstruction ICD Codes: J98.09 - Other diseases of bronchus, not elsewhere classified Status: Acute Plan: He had redeveloped atelectasis of the left lung. S/p bronch. s/p extubation Pulmonary toilet (3) Hypoxia ICD Codes: R09.02 - Hypoxemia Status: Resolved Plan: Improved, monitor pulmonary status still on supplemental oxygen via [place] (4) Pneumonia ICD Codes: J18.9 - Pneumonia Status: Resolved Plan: Blood cultures negative to date Off antibiotics (5) Hypertension ICD Codes: I10 - Essential (primary) hypertension Status: Chronic Plan: BP improved Resume antihypertensives if needed (6) Anemia ICD Codes: D64.9 - Anemia, unspecified Status: Chronic Plan: Given Epogen on 06/04/17 (7) CVA (cerebral vascular accident) ICD Codes: I63.9 - Cerebral infarction, unspecified Plan: ROBERT negative On ASA and statin. Needs aggressive PT Plan patient was seen and examined. Agree with above assessment and plan. (Gabriel Salcedo MD) Problem Qualifiers (1) Anemia: Jania Gallagher Jun 08, 2017 10:46 aGbriel Salcedo MD Jun 08, 2017 11:03
[2017-06-08] MEDS: HEPARIN SODIUM - SQ 10,000 UNITS/ML VIAL SQ SCH (10:50)
--- NOTE | 2017-06-08 13:13 | HHI.PR ---
Subjective Remarks Remains on O2 2 L Needs PT and OT. On PD now . Doing well CXR is better Objective Vital Signs Date Time Temp Pulse Resp B/P (MAP) Pulse Ox O2 Delivery O2 Flow Rate FiO2 06/08/17 09:45 Nasal Cannula 2.00 06/08/17 08:00 98.1 54 20 154/72 (99) 97 06/08/17 07:19 54 06/08/17 04:00 Nasal Cannula 2.00 06/08/17 04:00 53 06/08/17 04:00 97.8 56 18 135/64 (87) 97 06/08/17 00:01 55 06/08/17 00:00 98.8 56 17 162/71 (101) 95 06/08/17 00:00 Nasal Cannula 2.00 06/07/17 20:34 Nasal Cannula 2.00 06/07/17 20:00 Nasal Cannula 2.00 06/07/17 20:00 98.8 60 18 150/67 (94) 97 06/07/17 20:00 59 06/07/17 16:09 98.2 64 19 138/80 (99) 97 06/07/17 16:00 61 I/O 06/07/17 06/07/17 06/07/17 06/08/17 06/08/17 06/08/17 07:00 15:00 23:00 07:00 15:00 23:00 Intake Total 240 ml 420 ml 0 ml Output Total 502 ml Balance 240 ml -502 ml 420 ml 0 ml Intake Oral 240 ml 420 ml 0 ml Peritoneal Fluid 502 ml # Voids 0 0 # Bowel Movements 2 0 1 Result Diagram: 06/08/17 0640 06/08/17 0640 Objective Remarks GENERAL: This moderately obese, elderly man alert. He has some weakness of the extremities. HEENT: Head is normocephalic. Pupils are reactive. Tongue is clear. Throat was clear. Nasal mucosa is clear. NECK: Supple, no bruits or thyroid enlargement. CHEST: Distant breath sounds with occasional Basal crackles +. HEART: The heart sounds were irregular, S1 and S2 with no murmur. ABDOMEN: Soft, protuberant with Bowel sounds active. No organomegaly. EXTREMITIES: No edema and decreased peripheral pulses. Reflexes 1+. The patient does have some weakness of the lower extremities as well. Assessment and Plan Assessment and Plan IMPRESSION: 1. Atelectasis left lung with left pleural effusion,resolved 2. History of cerebrovascular accident. 3. Hypertension. 4. History of chronic bronchitis and reactive airways. 5. End-stage renal disease and on peritoneal dialysis. 6. Obstructive sleep apnea, on CPAP. Plan : 1. O2 2 L and wean. 2. PT and OT 3. OK to rehab 4. Duonebs tid. 5. CPAP at HS daily 6. IS at bedside q3h 7. D/W Dr woodson 8. Diet soft with aspiration precaution Chela Hogue MD Jun 08, 2017 13:13
[2017-06-08] MEDS: CALCIUM ACETATE 667 MG CAP PO SCH ×2 (13:23→18:26)
--- NOTE | 2017-06-08 14:27 | HHI.PR ---
Subjective Remarks awake and alert motivated with Physical therapy good po no pain complains Objective Vitals Vital Signs Date Time Temp Pulse Resp B/P (MAP) Pulse Ox O2 Delivery O2 Flow Rate FiO2 06/08/17 12:00 97.9 55 18 156/72 (100) 98 06/08/17 09:45 Nasal Cannula 2.00 06/08/17 08:00 98.1 54 20 154/72 (99) 97 06/08/17 07:19 54 06/08/17 04:00 Nasal Cannula 2.00 06/08/17 04:00 53 06/08/17 04:00 97.8 56 18 135/64 (87) 97 06/08/17 00:01 55 06/08/17 00:00 98.8 56 17 162/71 (101) 95 06/08/17 00:00 Nasal Cannula 2.00 06/07/17 20:34 Nasal Cannula 2.00 06/07/17 20:00 Nasal Cannula 2.00 06/07/17 20:00 98.8 60 18 150/67 (94) 97 06/07/17 20:00 59 06/07/17 16:09 98.2 64 19 138/80 (99) 97 06/07/17 16:00 61 I/O 06/07/17 06/07/17 06/07/17 06/08/17 06/08/17 06/08/17 07:00 15:00 23:00 07:00 15:00 23:00 Intake Total 240 ml 420 ml 0 ml Output Total 502 ml Balance 240 ml -502 ml 420 ml 0 ml Intake Oral 240 ml 420 ml 0 ml Peritoneal Fluid 502 ml # Voids 0 0 # Bowel Movements 2 0 1 Result Diagram: 06/08/17 0640 06/08/17 0640 Imaging Last Impressions Peritoneogram w/Contrast 06/05/17 0000 Signed Impressions: Service Date/Time: Monday, June 05, 2017 11:56 - CONCLUSION: Successful repositioning and manipulation of the left paracolic gutter peritoneal dialysis catheter as above. Gelacio Allen MD Catheter Placement X-Ray 06/05/17 0000 Signed Impressions: Service Date/Time: Monday, June 05, 2017 11:56 - CONCLUSION: Uncomplicated line placement as above. Gelacio Allen MD Chest X-Ray 06/03/17 0600 Signed Impressions: Service Date/Time: Saturday, June 03, 2017 04:30 - CONCLUSION: 1. Left IJ line tip in the left brachiocephalic vein. Mild basilar airspace disease. No pneumothorax. Layo Mathews MD Neck Magnetic Resonance Angiography 05/28/17 0000 Signed Impressions: Service Date/Time: May 12:13 - CONCLUSION: 1. Moderately limited examination due to motion degradation. 2. No significant flow-limiting stenosis demonstrated although portions of the internal carotid arteries and distal vertebral arteries are not sufficiently evaluated. Hunter Daniel MD Head Magnetic Resonance Angiography 05/28/17 0000 Signed Impressions: Service Date/Time: May 12:13 - CONCLUSION: 1. Unremarkable [place] MRA examination. Specifically, no evidence for large vessel occlusion or significant aneurysm. Hunter Daniel MD Chest CT 05/27/17 0000 Signed Impressions: Service Date/Time: Saturday, May 27, 2017 12:16 - CONCLUSION: 1. There is normal aeration of the left upper lobe. However, there is abnormal material within the left lower lobe bronchus with collapse of the left lower lobe. 2. There is a new right lower lobe airspace consolidation and new small left pleural effusion. 3. There is new small volume of free fluid in the upper abdomen. 4. 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 Joe Curry MD Brain MRI 05/27/17 Signed Impressions: Service Date/Time: Saturday, May 27, 2017 11:45 - CONCLUSION: Marked central and cortical atrophy with periventricular white matter changes Minimal focal areas of restricted diffusion in both occipital lobes and left cerebellar hemisphere Suspicious for embolic ischemic event. Kian Adkins MD FACR Head CT 05/22/17 0000 Signed Impressions: Service Date/Time: Monday, May 22, 2017 12:22 - CONCLUSION: Negative for acute process Kian Adkins MD FACR Abdomen X-Ray 05/22/17 0000 Signed Impressions: Service Date/Time: Monday, May 22, 2017 10:27 - CONCLUSION: No evidence of obstruction. Nasogastric tube across the GE junction. No free air. Kian Adkins MD FACR Objective Remarks awake and alert, oriented x 3, speech clear but soft, interactive anicteric VAS cath in place lungs- decreased breath sounds, no wheezes, no rales regular rhythm abdomen-soft, good bowel sounds, PD catheter in place extremities no edema, - atrophic legs moves all extremities spontaneously- generalized weakness A/P Assessment and Plan 82 years old male Acute hypoxemic respiratory failure extubated 05/23, re intubated 05/27/17, extubated on 06/01, doing well postextubation S/p opacification of left lung due to mucous plug - improved air entry Underlying COPD -Pulmonary Dr. Brown ff -S/P zosyn 06/04 Bronchodilators ( DuoNeb). Mucomyst neb. Inhaled budesonide. Completed steroids s/p bronchoscopy 05/28/2017 large amount of thick mucoid secretions removed from bilateral lower lobe segmental bronchi s/p bronch 05/22 - thick mucoid secretions on left suctioned to clear. Follow up on BAL results-negative to date Pulm is following- Dr. Hogue. On Symbicort and Spiriva CPAP at night Supplemental O2 during daytime to keep SPO2 above 90% cleared for DC to SNF by Pulmonary Delirium/metabolic encephalopathy -Resolved Embolic stroke bilateral occipital lobes, left cerebellar - PT/OT daily - Neurology ff - needs rehab - continue citalopram S/P treatment for Possible pneumonia -cultures so far have been negative to date - s/p zosyn ESRD on peritoneal dialysis. PD catheter - now working well HYpokalemia-resolved -Nephrology ff. S/P VAS cath placement 06/05 d/w - agrees with HD for now but would like him to continue on PD as much as possible- states this would occur intermittently she will discuss with Dr. Long remove Vas cath if PD catheter continues to work efficiently - cleared for SNF History of hypertension CAD, s/p CALLIE to RCA in Mar -continue Plavix/ASA Echo in February showed EF of 55-60% with no regional wall motion abnormalities. ROBERT negative for cardiac source of emboli 05/29/17 Continue with aspirin, Plavix, Lipitor. ID: Off Vanco and azithromycin Cultures have been negative to date Removed central line 06/03 Endo: SSI with Accu-Chek for glycemic control.- states non diabetic. will DC monitoring Heme: Monitor CBC. DVT prophylaxis with SCDs/ heparin sub-Q Palliative care following to address goals of care-patient overall declining over the last several months. 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 CM- DC planning- need SNF- for more intensive PT will ask CM- if he can go to [place] - any days left if not- SNF of choice- Gume Macias MD Jun 08, 2017 14:27
[2017-06-08] MEDS ORDERED: Albuterol-Ipratropium Neb NEB (14:33)
[2017-06-08] MEDS ORDERED: CALC667C PO (14:33)
[2017-06-08] MEDS ORDERED: SPIRCAP INH (14:33)
[2017-06-08] MEDS ORDERED: Budeson-Formot 160-4.5 Mcg Inh INH (14:39)
[2017-06-08] MEDS ORDERED: LEVE500 PO (14:42)
--- NOTE | 2017-06-08 14:49 | HHI.DS ---
Discharge Summary Admission Date May 21, 2017 at 16:31 Discharge Date: Jun 08, 2017 Admitting Diagnosis Large left pleural effusion, pneumonia, dyspnea, hypoxia (1) acute Respiratory failure Diagnosis: Principal Status: Acute (2) L:eft lung opacification due to mucus plug Diagnosis: Principal Status: Acute (3) ESRD (end stage renal disease) on dialysis ICD Code: N18.6 - End stage renal disease; Z99.2 - Dependence on renal dialysis Diagnosis: Secondary Status: Chronic Procedures bronchoscopyy x 2 VAS cath placement Brief History - From Admission History from patient, at the bedside, ER physician communication, and review of medical records. Patient lives at a nursing facility. Discharge. He has been there since May 05, 2017 from [facility]. stated that at the longterm, patient's oxygen has been low for the past few days. It was in the 80s. He was also coughing a lot at nighttime pretty much every night. He was told that he had pneumonia from an outpatient chest x-ray. However his cough was constant and they were getting worried that he was not improving despite treatment with antibiotics and therefore sent him to the hospital. Patient denies any fever. He denies actual shortness of breath except when he is having coughing fits. Denies any prior history of intubation. also reported that patient had history of pneumonia in February. He had a stroke in March 2017 while he was on a cruise and was managed at [facility]. He was then transferred from there to [facility]. He has been at the nursing facility since discharge from [facility] on May 05, 2017. Apart from this cough and dyspnea, patient denies any other symptoms such as fevers/nausea/vomiting/diarrhea/urinary burning or pain on urination. He denies any hematemesis/hematochezia/melena/hematuria. CBC/BMP: 06/08/17 0640 06/08/17 0640 Significant Findings Laboratory Tests Test 06/06/17 06:40 06/07/17 06:20 06/08/17 06:40 Red Blood Count 3.04 MIL/MM3 (4.50-5.90) 3.06 MIL/MM3 (4.50-5.90) 3.07 MIL/MM3 (4.50-5.90) Hemoglobin 9.6 GM/DL (13.0-17.0) 9.6 GM/DL (13.0-17.0) 9.6 GM/DL (13.0-17.0) Hematocrit 28.1 % (39.0-51.0) 28.3 % (39.0-51.0) 28.8 % (39.0-51.0) Red Cell Distribution Width 17.5 % (11.6-17.2) Platelet Count 124 TH/MM3 (150-450) 129 TH/MM3 (150-450) 111 TH/MM3 (150-450) Neutrophils (%) (Auto) 71.7 % (16.0-70.0) 72.6 % (16.0-70.0) Monocytes (%) (Auto) 9.4 % (0.0-8.0) 9.1 % (0.0-8.0) 11.0 % (0.0-8.0) Eosinophils (%) (Auto) 4.3 % (0.0-4.0) 4.6 % (0.0-4.0) Blood Urea Nitrogen 51 MG/DL (7-18) 47 MG/DL (7-18) 43 MG/DL (7-18) Creatinine 9.29 MG/DL (0.60-1.30) 9.29 MG/DL (0.60-1.30) 9.23 MG/DL (0.60-1.30) Random Glucose 72 MG/DL (74-106) Total Protein 5.4 GM/DL (6.4-8.2) 5.4 GM/DL (6.4-8.2) Albumin 2.0 GM/DL (3.4-5.0) 2.0 GM/DL (3.4-5.0) Phosphorus Level 5.4 MG/DL (2.5-4.9) 5.0 MG/DL (2.5-4.9) Estimat Glomerular Filtration Rate 5 ML/MIN (>89) 5 ML/MIN (>89) 6 ML/MIN (>89) Lymphocytes # (Auto) 0.9 TH/MM3 (1.0-4.8) Imaging Last Impressions Peritoneogram w/Contrast 06/05/17 0000 Signed Impressions: Service Date/Time: Monday, June 05, 2017 11:56 - CONCLUSION: Successful repositioning and manipulation of the left paracolic gutter peritoneal dialysis catheter as above. Gelacio Allen MD Catheter Placement X-Ray 06/05/17 0000 Signed Impressions: Service Date/Time: Monday, June 05, 2017 11:56 - CONCLUSION: Uncomplicated line placement as above. Gelacio Allen MD Chest X-Ray 06/03/17 0600 Signed Impressions: Service Date/Time: Saturday, June 03, 2017 04:30 - CONCLUSION: 1. Left IJ line tip in the left brachiocephalic vein. Mild basilar airspace disease. No pneumothorax. Layo Mathews MD Neck Magnetic Resonance Angiography 05/28/17 0000 Signed Impressions: Service Date/Time: May 12:13 - CONCLUSION: 1. Moderately limited examination due to motion degradation. 2. No significant flow-limiting stenosis demonstrated although portions of the internal carotid arteries and distal vertebral arteries are not sufficiently evaluated. Hunter Daniel MD Head Magnetic Resonance Angiography 05/28/17 0000 Signed Impressions: Service Date/Time: May 12:13 - CONCLUSION: 1. Unremarkable [facility] [place] MRA examination. Specifically, no evidence for large vessel occlusion or significant aneurysm. Hunter Daniel MD Chest CT 05/27/17 0000 Signed Impressions: Service Date/Time: Saturday, May 27, 2017 12:16 - CONCLUSION: 1. There is normal aeration of the left upper lobe. However, there is abnormal material within the left lower lobe bronchus with collapse of the left lower lobe. 2. There is a new right lower lobe airspace consolidation and new small left pleural effusion. 3. There is new small volume of free fluid in the upper abdomen. 4. 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 Joe Curry MD Brain MRI 05/27/17 0000 Signed Impressions: Service Date/Time: Saturday, May 27, 2017 11:45 - CONCLUSION: Marked central and cortical atrophy with periventricular white matter changes Minimal focal areas of restricted diffusion in both occipital lobes and left cerebellar hemisphere Suspicious for embolic ischemic event. Kian Adkins MD FACR Head CT 05/22/17 0000 Signed Impressions: Service Date/Time: Monday, May 22, 2017 12:22 - CONCLUSION: Negative for acute process Kian Adkins MD FACR Abdomen X-Ray 05/22/17 0000 Signed Impressions: Service Date/Time: Monday, May 22, 2017 10:27 - CONCLUSION: No evidence of obstruction. Nasogastric tube across the GE junction. No free air. Kian Adkins MD FACR PE at Discharge awake and alert, oriented x 3, speech clear but soft, interactive anicteric VAS cath in place lungs- decreased breath sounds, no wheezes, no rales regular rhythm abdomen-soft, good bowel sounds, PD catheter in place extremities no edema, - atrophic legs moves all extremities spontaneously- generalized weakness Pt update on day of discharge awake and alert interactive motivated with therapy still very deconditoned PD catheter working Hospital Course 82 years old male Acute hypoxemic respiratory failure extubated 05/23, re intubated 05/27/17, extubated on 06/01, doing well postextubation S/p opacification of left lung due to mucous plug - improved air entry Underlying COPD -Pulmonary Dr. Brown ff -S/P zosyn 06/04 Bronchodilators ( DuoNeb). Mucomyst neb. Inhaled budesonide. Completed steroids s/p bronchoscopy 05/28/2017 large amount of thick mucoid secretions removed from bilateral lower lobe segmental bronchi s/p bronch 05/22 - thick mucoid secretions on left suctioned to clear. Follow up on BAL results-negative to date Pulm is following- Dr. Hogue. On Symbicort and Spiriva CPAP at night Supplemental O2 during daytime to keep SPO2 above 90% cleared for DC to SNF by Pulmonary Delirium/metabolic encephalopathy -Resolved Embolic stroke bilateral occipital lobes, left cerebellar - PT/OT daily - Neurology ff - needs rehab - continue citalopram S/P treatment for Possible pneumonia -cultures so far have been negative to date - s/p zosyn ESRD on peritoneal dialysis. PD catheter - now working well HYpokalemia-resolved -Nephrology ff. S/P VAS cath placement 06/05 d/w - agrees with HD for now but would like him to continue on PD as much as possible- states this would occur intermittently she will discuss with Dr. Long remove Vas cath if PD catheter continues to work efficiently - cleared for SNF History of hypertension CAD, s/p CALLIE to RCA in Mar -continue Plavix/ASA Echo in February showed EF of 55-60% with no regional wall motion abnormalities. ROBERT negative for cardiac source of emboli 05/29/17 Continue with aspirin, Plavix, Lipitor. ID: Off Vanco and azithromycin Cultures have been negative to date Removed central line 06/03 Endo: SSI with Accu-Chek for glycemic control.- states non diabetic. will DC monitoring Heme: Monitor CBC. DVT prophylaxis with SCDs/ heparin sub-Q Palliative care following to address goals of care-patient overall declining over the last several months. 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 CM- DC planning- need SNF- for more intensive PT will ask CM- if he can go to [place] - any days left if not- SNF of choice- [facility] Pt Condition on Discharge: Stable Discharge Disposition: Discharge to SNF Discharge Time: > 30 minutes Discharge Instructions DIET: Follow Instructions for: Heart Healthy Diet, Diabetic Diet, Dialysis Diet Activities you can perform: Weight Bearing as Julio Activities to Avoid: Prolonged Standing, Strenuous Activity Other Activity Instructions: very deconditioned need a lot pof therapy patient very pleasant and cooperative and motivated Follow up Referrals: Nephrology - 3-5 Days with [facility] - 1 Week with Avery Brizuela MD PhD PCP Follow-up - 06/11/17 with [facility] - 1 Week with Lali New Medications: Calcium Acetate (Phosphate Bin (Calcium Acetate) 667 Mg Cap 667 MG PO TID for ESRD for 30 Days, CAP Levetiracetam (Keppra) 500 Mg Tab 500 MG PO DAILY for neuro for 30 Days, #30 TAB Tiotropium Inh (Spiriva Handihaler) 18 Mcg Cap 18 MCG INH DAILY for Resp for 30 Days, #30 CAP 1 capsule = 18 mcg [Albuterol-Ipratropium Neb] () 1 AMPULE NEBU 1 AMPULE NEB TID PRN for COPD [Budeson-Formot 160-4.5 Mcg Inh] () 60 PUFF AERO 1 PUFF INH Q12HR for COPD for 30 Days Continued Medications: Aspirin DR (Aspirin DR) 81 Mg Tabdr 81 MG PO DAILY for stroke prevention, #30 TAB Atorvastatin (Atorvastatin) 80 Mg Tab 80 MG PO HS for Cholesterol Management, #30 TAB 0 Refills Calcitriol (Calcitriol) 0.25 Mcg Cap 0.25 MCG PO DAILY for Calcium Supplement, #30 CAP 0 Refills Citalopram (Celexa) 20 Mg Tab 20 MG PO DAILY for antidepressant, #30 TAB Clopidogrel (Clopidogrel) 75 Mg Tab 75 MG PO DAILY for Blood Clot Prevention, #30 TAB 0 Refills Crisaborole Topical (Eucrisa Topical) 2 % Oin 1 APPLIC TOPICAL BID for DERMATITIS, #1 TUBE 0 Refills Furosemide (Furosemide) 80 Mg Tab 80 MG PO DAILY for diuretic, #30 TAB Gabapentin (Gabapentin) 100 Mg Cap 100 MG PO BID for nerve pain, #60 CAP Hydralazine HCl (Hydralazine HCl) 10 Mg Tablet 10 MG PO Q8HR, #90 TAB Isosorbide Mononitrate ER (Isosorbide Mononitrate ER) 30 Mg Hayder 30 MG PO DAILY for Prevent Chest Pain, #30 TAB 0 Refills Levetiracetam (Keppra) 250 Mg Tab 250 MG PO HS for control seizures, #30 TAB Nitroglycerin SL (Nitroglycerin SL) 0.4 Mg Subl 0.4 MG SL DIRECTED PRN for CHEST PAIN, #100 TAB.SL 0 Refills ONE TABLET UNDER THE TONGUE NEEDED FOR CHEST PAIN, MAY REPEAT EVERY FIVE MINUTES FOR A TOTAL OF 3 DOSES OR CALL 911 IF NO RELIEF Travoprost Opth Drops (Travatan Z Opth Drops) 0.004 % Soln 1 DROP EACH EYE HS for Glaucoma, #1 BOTTLE 0 Refills Discontinued Medications: Amlodipine (Norvasc) 10 Mg Tab 10 MG PO DAILY for Blood Pressure Management, #30 TAB Benzonatate (Tessalon Perles) 100 Mg Cap 100 MG PO BID PRN for COUGH, #60 CAP Bisacodyl Supp (Bisac-Evac Supp) 10 Mg Supp 10 MG RECTAL DAILY PRN for SEVERE CONSITIPATION, #30 SUPP Carvedilol (Coreg) 3.125 Mg Tab 3.125 MG PO Q12HR for Blood Pressure Management, #60 TAB Cholestyramine (Cholestyramine) 4 Gm/Pkt Powd 4 GM PO DAILY for prevent diarrhea for 30 Days 1 packet contains 4 grams of cholestyramine. Doxycycline Hyclate (Doxycycline Hyclate) 100 Mg Cap 100 MG PO BID for Infection, CAP 0 Refills Lactobacillus Acidophilus (Acidophilus/l-Sporogenes) 35 Million Cell-25 Million Cell Tab 1 TAB PO TID for healthy sanjuana, #90 TAB Levetiracetam (Keppra) 500 Mg Tab 500 MG PO BID for Control Seizures, #60 TAB 0 Refills Sevelamer Carbonate (Renvela) 800 Mg Tab 800 MG PO TIDAC for phosphate binder, #90 TAB Gume Andrade MD Jun 08, 2017 14:49
== END 2017-06-08 18:36 | DRG 166 ==
LOC: NEPE 13:49 → NEDA 16:31 → N04A 18:56 → HIME 05-22 05:50 → N04B 06-03 16:35 → N04A 06-06 19:40
PROVIDERS: ADMIT Internal Medicine; ATTEND Internal Medicine
PROC: 3E1M39Z Irrigation of Peritoneal Cavity using Dialysate, Percutaneous Approach (ICD-10-PCS; 2017-05-21)
PROC: 0WCQ8ZZ Extirpation of Matter from Respiratory Tract, Via Natural or Artificial Opening Endoscopic (ICD-10-PCS; 2017-05-22)
PROC: 5A1945Z Respiratory Ventilation, 24-96 Consecutive Hours (ICD-10-PCS; 2017-05-22)
PROC: 5A09357 Assistance with Respiratory Ventilation, Less than 24 Consecutive Hours, Continuous Positive Airway Pressure (ICD-10-PCS; 2017-05-22)
PROC: 0BH17EZ Insertion of Endotracheal Airway into Trachea, Via Natural or Artificial Opening (ICD-10-PCS; 2017-05-22)
PROC: 02HV33Z Insertion of Infusion Device into Superior Vena Cava, Percutaneous Approach (ICD-10-PCS; 2017-05-23)
PROC: 5A1955Z Respiratory Ventilation, Greater than 96 Consecutive Hours (ICD-10-PCS; 2017-05-27)
PROC: 0BH17EZ Insertion of Endotracheal Airway into Trachea, Via Natural or Artificial Opening (ICD-10-PCS; 2017-05-27)
PROC: 0B9J8ZZ Drainage of Left Lower Lung Lobe, Via Natural or Artificial Opening Endoscopic (ICD-10-PCS; principal; 2017-05-28)
PROC: 0B958ZZ Drainage of Right Middle Lobe Bronchus, Via Natural or Artificial Opening Endoscopic (ICD-10-PCS; 2017-05-28)
PROC: 0B9G8ZZ Drainage of Left Upper Lung Lobe, Via Natural or Artificial Opening Endoscopic (ICD-10-PCS; 2017-05-28)
PROC: 0B9H8ZZ Drainage of Lung Lingula, Via Natural or Artificial Opening Endoscopic (ICD-10-PCS; 2017-05-28)
PROC: 0B9F8ZZ Drainage of Right Lower Lung Lobe, Via Natural or Artificial Opening Endoscopic (ICD-10-PCS; 2017-05-28)
PROC: 0B9J8ZX Drainage of Left Lower Lung Lobe, Via Natural or Artificial Opening Endoscopic, Diagnostic (ICD-10-PCS; 2017-05-28)
PROC: 0B9F8ZX Drainage of Right Lower Lung Lobe, Via Natural or Artificial Opening Endoscopic, Diagnostic (ICD-10-PCS; 2017-05-28)
PROC: B246ZZ4 Ultrasonography of Right and Left Heart, Transesophageal (ICD-10-PCS; 2017-05-29)
PROC: 0WW Anatomical Regions, General, Revision (ICD-10-PCS; 2017-06-05)
DX: T17.590A Other foreign object in bronchus causing asphyxiation, initial encounter (principal); I63.40 Cerebral infarction due to embolism of unspecified cerebral artery; J96.01 Acute respiratory failure with hypoxia; I13.2 Hypertensive heart and chronic kidney disease with heart failure and with stage 5 chronic kidney disease, or end stage renal disease; J44.0 Chronic obstructive pulmonary disease with (acute) lower respiratory infection; G93.41 Metabolic encephalopathy; A41.9 Sepsis, unspecified organism; J90 Pleural effusion, not elsewhere classified; N17.9 Acute kidney failure, unspecified; N18.6 End stage renal disease; J18.9 Pneumonia, unspecified organism; J98.11 Atelectasis; E46 Unspecified protein-calorie malnutrition; I69.351 Hemiplegia and hemiparesis following cerebral infarction affecting right dominant side; N25.81 Secondary hyperparathyroidism of renal origin; T85.611A Breakdown (mechanical) of intraperitoneal dialysis catheter, initial encounter; T17.890A Other foreign object in other parts of respiratory tract causing asphyxiation, initial encounter; J44.9 Chronic obstructive pulmonary disease, unspecified; E88.89 Other specified metabolic disorders; L89.152 Pressure ulcer of sacral region, stage 2; I50.9 Heart failure, unspecified; J98.09 Other diseases of bronchus, not elsewhere classified; Z99.2 Dependence on renal dialysis; I25.10 Atherosclerotic heart disease of native coronary artery without angina pectoris; D63.1 Anemia in chronic kidney disease; E78.5 Hyperlipidemia, unspecified; I25.2 Old myocardial infarction; Z87.01 Personal history of pneumonia (recurrent); Z82.49 Family history of ischemic heart disease and other diseases of the circulatory system; I48.91 Unspecified atrial fibrillation; Z99.81 Dependence on supplemental oxygen; G47.33 Obstructive sleep apnea (adult) (pediatric); N40.0 Benign prostatic hyperplasia without lower urinary tract symptoms; Z51.5 Encounter for palliative care; Z95.5 Presence of coronary angioplasty implant and graft; Z79.82 Long term (current) use of aspirin; Z79.02 Long term (current) use of antithrombotics/antiplatelets; G40.909 Epilepsy, unspecified, not intractable, without status epilepticus; R41.89 Other symptoms and signs involving cognitive functions and awareness; E87.6 Hypokalemia; F32.9 Major depressive disorder, single episode, unspecified; Y81.2 Prosthetic and other implants, materials and accessory general- and plastic-surgery devices associated with adverse incidents
CPT/HCPCS: 31500; 31624; 36556; 36600; 49400; 70450; 70544; 70547; 70551; 71045; 71250; 74018; 74190; 76937; 77001; 80048; 80053; 80061; 80202; 82140; 82150; 82272; 82805; 82948; 83036; 83605; 83690; 83735; 84100; 84132; 84443; 85007; 85025; 85027; 85610; 85730; 87015; 87040; 87070; 87102; 87116; 87205; 87206; 87641; 89051; 90935; 93005; 93312; 93320; 93325; 94002; 94003; 94150; 94640; 94664; 94667; 94668; 95819; 96360; 99152; 99153; C1752; C1769; J0456; J0692; J1630; J1644; J1720; J1815; J1940; J2250; J2543; J2920; J2997; J3010; J3370; J3480; J7040; J7050; J7608; P9047; Q4081; Q9967

== ENCOUNTER 2017-08-19 11:18 | Inpatient (IN) ==
[2017-08-19] MEDS ORDERED: Amiodarone Inj 150 MG in Dextrose 5% in Water Inj 97 ML IV.SIG ONE ×4 (11:34→22:12)
--- NOTE | 2017-08-19 11:48 | ED ---
HPI General Chief Complaint: Arrhythmia/Palpitations Stated Complaint: Medical/Evac Time Seen by Provider: 08/19/17 11:34 Source: patient and EMS Mode of arrival: EMS Limitations: altered mental status History of Present Illness HPI narrative: This is an 82-year-old man, sent from [facility], for intermittent syncopal episodes starting today. Patient unable to provide any additional history. EMS reports that patient having intermittent syncopal episodes. On transport he had intermittent runs of ventricular tachycardia, lasting several seconds, associated with loss of consciousness. Review of records shows history of multiple medical problems including end- stage renal disease on peritoneal dialysis, hypertension, heart failure, COPD, from review of old records, possible history of A. fib. Related Data Home Medications Medication Instructions Recorded Confirmed clopidogrel [Plavix] 75 mg PO DAILY 08/19/17 08/19/17 midodrine 10 mg PO BID 08/19/17 08/19/17 mirtazapine [Remeron] 15 mg PO DAILY 08/19/17 08/19/17 propantheline 15 mg PO DAILY 08/19/17 08/19/17 Allergies Allergy/AdvReac Type Severity Reaction Status Date / Time No Known Allergies Allergy Verified 08/19/17 11:38 Review of Systems ROS Unobtainable unobtainable due to mental status PMFSH History History Provided By: Medical Record Medical History Medical History Anemia (Acute) Aphasia (Acute) Atrial fibrillation (Acute) Chest pain (Acute) 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) Dyspnea (Acute) Glaucoma (Acute) Hypoxemia (Acute) Major depression (Acute) Pleural cavity effusion (Acute) Pneumonia (Acute) CAD (coronary artery disease) (Chronic) CVA (cerebral vascular accident) (Chronic) End stage renal disease (Chronic) HTN (hypertension) (Chronic) Peritoneal dialysis catheter in place (Chronic) COPD (chronic obstructive pulmonary disease) (Chronic) Depression (Chronic) Heart failure (Chronic) Hypotension (Chronic) Surgical History Surgical History Hx of tonsillectomy (Acute) Social History Social History Substance History: No History of Abuse Second Hand Smoke Exposure: No Smoking Status: Never smoker How Often Do You Have a Drink Containing Alcohol: Never Recent Travel in [facility] within the Last 8 Weeks: No Recent Out of Country Travel within the Last 8 Weeks: No Exam Narrative Exam Narrative: GENERAL: This is an 82-year-old man, pale, little bit debilitated appearing, initially nontoxic. SKIN: Focused skin assessment warm/dry. Pale. HEAD: Atraumatic. Normocephalic. EYES: Pupils equal and round. No scleral icterus. No injection or drainage. ENT: No nasal bleeding or discharge. Mucous membranes pink and moist. NECK: Trachea midline. No JVD. CARDIOVASCULAR: Heart rate slow with some irregularity and ectopy. No appreciable murmurs. RESPIRATORY: No accessory muscle use. Clear to auscultation. Breath sounds equal bilaterally. GASTROINTESTINAL: Abdomen is obese and soft. No tenderness. MUSCULOSKELETAL: No obvious deformities. Legs are skinny with stigmata of what appeared to be peripheral vascular disease and chronic insufficiency. NEUROLOGICAL: Awake and alert. Some generalized confusion. No obvious cranial nerve deficits. Motor grossly within normal limits. Speech seems a little bit dysarthric. Course Reevaluation(s) Reevaluation #1: 54 second run of polymorphic V. tach. A lot of artifact, not clearly torsades, resolved. Time: 11:26 Consultations Consultation #1: Spoke with Dr. Diaz, will admit patient. Time: 13:20 Initial Documented Vital Signs Temperature 99.3 F 08/19/17 11:21 Pulse Rate 63 08/19/17 11:21 Respiratory Rate 21 08/19/17 11:21 Blood Pressure 187/83 H 08/19/17 11:21 Last Documented Vital Signs Temperature 99.3 F 08/19/17 11:21 Pulse Rate 53 L 08/19/17 12:15 Respiratory Rate 17 08/19/17 12:15 Blood Pressure 99/55 L 08/19/17 12:15 Pulse Oximetry 99 08/19/17 12:15 Critical Care Time Critical Care Time: Yes Total Critical Care Time: 30 Attestation: Aggregate critical care time was 30 minutes. Time to perform other separately billable procedures was not included in the critical care time. My time did not include minutes spent treating any other patients simultaneously or on activities that did not directly contribute to the patient's treatment. The services I provided to this patient were to treat and/or prevent clinically significant deterioration that could result in: , disability, cardiac arrest due to V. fib/V. tach, metabolic abnormality, worsening morbidity. I provided critical care services requiring my management, as noted below: Chart data review, documentation time, medication orders and management, vital sign assessments/reviewing monitor data, ordering and reviewing lab tests, ordering and interpreting/reviewing x-rays and diagnostic studies, care of the patient and discussion of the patient with the admitting physicians. Medical Decision Making MDM Narrative Medical decision making narrative: 82-year-old man presents emergency department with persistent V. tach, up to 54 seconds in the emergency department. Associated loss of consciousness. No chest pain. Patient's peritoneal dialysis patient. Will check electrolytes. Will also give amiodarone. Will check magnesium level. Will speak with cardiology, reassess. Plan on admission. Lab Data Result diagrams: 08/19/17 11:45 08/19/17 11:45 Lab Results 08/19/17 08/19/17 08/19/17 Range/Units 11:45 11:45 11:45 WBC 9.7 (4.0-11.0) th/mm3 RBC 2.83 L (4.50-5.90) mil/mm3 Hgb 9.7 L (13.0-17.0) gm/dL Hct 28.3 L (39.0-51.0) % MCV 99.8 (80.0-100.0) fL MCH 34.3 H (27.0-34.0) pg MCHC 34.3 (32.0-36.0) % RDW 14.4 (11.6-17.2) % Plt Count 203 (150-450) th/mm3 MPV 8.5 (7.0-11.0) fL Neut % (Auto) 81.3 H (16.0-70.0) % Lymph % (Auto) 9.6 (9.0-44.0) % Arthur % (Auto) 6.4 (0.0-8.0) % Eos % (Auto) 2.0 (0.0-4.0) % Baso % (Auto) 0.7 (0.0-2.0) % Neut # (Auto) 7.9 H (1.8-7.7) th/mm3 Lymph # (Auto) 0.9 L (1.0-4.8) th/mm3 Arthur # (Auto) 0.6 (0.0-0.9) th/mm3 Eos # (Auto) 0.2 (0.0-0.4) th/mm3 Baso # (Auto) 0.1 (0.0-0.2) th/mm3 WBC Differential . Differential Comment Auto diff final PT 11.3 (9.8-11.6) sec INR 1.1 Ratio APTT 27.5 (24.3-30.1) sec Sodium 140 (136-145) meq/L Potassium 3.5 (3.5-5.1) meq/L Chloride 100 (98-107) meq/L Carbon Dioxide 27.7 (21.0-32.0) meq/L Anion Gap 12 (5-15) meq/L BUN 35 H (7-18) mg/dL Creatinine 7.51 H (0.60-1.30) mg/dL Estimated GFR 7 L (>89) mL/min Random Glucose 123 H (74-106) mg/dL Calcium 9.0 (8.5-10.1) mg/dL Magnesium 2.1 (1.5-2.5) mg/dL Total Bilirubin 0.2 (0.2-1.0) mg/dL AST 20 (15-37) U/L ALT 19 (12-78) U/L Alkaline Phosphatase 67 (45-117) U/L Total Creatine Kinase 71 (39-308) U/L Troponin I Less than 0.02 L (0.02-0.05) ng/mL Total Protein 6.2 L (6.4-8.2) g/dL Albumin 2.5 L (3.4-5.0) g/dL Imaging Data Radiologist's impression: ITS Impressions Chest X-Ray 08/19/17 11:35 CONCLUSION: Minimal parenchymal changes left base suspicious for inflammatory process. Mild compensated cardiomegaly ECG Data EKG Prior to Arrival: Yes Attestation: I personally reviewed and interpreted this ECG as follows: Interpretation: EKG from 1127, appears to show sinus rhythm at a rate of 74, nonspecific ST and T-wave abnormalities definite evidence of acute ischemia. Review of multiple EMS EKGs, and rhythm strip tracing shows intermittent episodes of bradycardia of either sinus arrest or A. fib without clear discernible P waves, associated with bigeminy or trigeminy as well as nonsustained V. tach, polymorphic in form, with episode of 54 seconds of persistent V. tach. Discharge Plan Physicians Team ED Provider: Aleksey Cotto Primary Care Provider: [facility] Rxs /Orders / Referrals /Forms Prescriptions: No Action propantheline 15 mg Tablet 15 mg PO DAILY RF: 0 clopidogrel [Plavix] 75 mg Tablet 75 mg PO DAILY RF: 0 mirtazapine [Remeron] 15 mg Tablet 15 mg PO DAILY RF: 0 midodrine 10 mg Tablet 10 mg PO BID RF: 0 Discharge Interventions Interventions: Vital Signs Last Done: 08/19/17 12:15 Status ED Status: With Doctor
--- NOTE | 2017-08-19 11:55 | XR ---
EXAM DATE: 08/19/2017 11:51 AM EDT AGE/SEX: 82 years / Male INDICATIONS: Chest pain and shortness of breath. CLINICAL DATA: This is the patient's initial encounter. Patient reports that signs and symptoms have been present for 1 day and indicates a pain score of 4/10. MEDICAL/SURGICAL HISTORY: Cardiovascular disease. Chronic obstructive pulmonary disease. Hype rtension. Coronary artery stent. [place] [facility] [place] . FINDINGS: Minimal parenchymal changes left base. Right lung clear. The heart is minimally enlarged. Pulmonary vascularity is normal. CONCLUSION: Minimal parenchymal changes left base suspicious for inflammatory process. Mild compensated cardiomegaly Electronically signed by: Kian Adkins MD 08/19/2017 11:54 AM EDT
[2017-08-19 12:13] LABS: Baso # (Auto) 0.1 th/mm3 (0.0-0.2); Baso % (Auto) 0.7 % (0.0-2.0); Eos # (Auto) 0.2 th/mm3 (0.0-0.4); Hematocrit 28.3 % (39.0-51.0); Hemoglobin 9.7 gm/dL (13.0-17.0); Lymph # (Auto) 0.9 th/mm3 (1.0-4.8); Lymph % (Auto) 9.6 % (9.0-44.0); Mean Corpuscular HGB Conc 34.3 % (32.0-36.0); Mean Corpuscular Hemoglobin 34.3 pg (27.0-34.0); Mean Corpuscular Volume 99.8 fL (80.0-100.0); Mean Platelet Volume 8.5 fL (7.0-11.0); Mono # (Auto) 0.6 th/mm3 (0.0-0.9); Mono % (Auto) 6.4 % (0.0-8.0); Neut # (Auto) 7.9 th/mm3 (1.8-7.7); Neut % (Auto) 81.3 % (16.0-70.0); Platelet Count 203 th/mm3 (150-450); Red Blood Count 2.83 mil/mm3 (4.50-5.90); Red Cell Distribution Width 14.4 % (11.6-17.2); White Blood Count 9.7 th/mm3 (4.0-11.0)
[2017-08-19 12:21] LABS: Activated Partial Thrombo Time 27.5 sec (24.3-30.1); INR 1.1 Ratio; Prothrombin Time 11.3 sec (9.8-11.6)
[2017-08-19 12:39] LABS: Alanine Aminotransferase 19 U/L (12-78); Albumin 2.5 g/dL (3.4-5.0); Anion Gap 12 meq/L (5-15); Aspartate Aminotransferase 20 U/L (15-37); Blood Urea Nitrogen 35 mg/dL (7-18); Carbon Dioxide 27.7 meq/L (21.0-32.0); Chloride 100 meq/L (98-107); Glomerular Filtration Rate 7 mL/min (>89); Glucose,Random 123 mg/dL (74-106); Magnesium 2.1 mg/dL (1.5-2.5); Potassium 3.5 meq/L (3.5-5.1); Sodium 140 meq/L (136-145)
[2017-08-19 12:49] LABS: Alkaline Phosphatase 67 U/L (45-117); Total Protein 6.2 g/dL (6.4-8.2)
[2017-08-19 12:50] LABS: Creatine Kinase 71 U/L (39-308)
[2017-08-19] MEDS ORDERED: Bisacodyl 10 MG Supp RECTAL PRN (13:20)
--- NOTE | 2017-08-19 13:31 | P.HPCC ---
History of Present Illness Primary Care Physician: [facility] Chief Complaint: Sustained VTAC History of Present Illness: Patient is an 82-year-old male with a past medical history of hypertension, obstructive sleep apnea, COPD, history of CVA, end-stage renal disease on peritoneal dialysis who was recently admitted to [place] from 05/21/17 to for respiratory failure. He was brought into the emergency department today for multiple episodes of syncope. EMS strips showed several episodes of nonsustained V. tach. In the emergency department patient had a single episode of sustained V. tach, up to 54 seconds, with loss of consciousness. Pads were placed for emergency defibrillation however prior to defibrillation patient regained sinus rhythm and consciousness. Patient was given 150 mg amiodarone bolus IV, followed by amiodarone infusion. Dr. Leong from cardiology was consulted. I evaluated the patient in the emergency department. Patient is lying in bed denies chest pain. He has sinus bradycardia. I reviewed the EMS EKG strips, and the EKG done in the ED. He has sinus bradycardia, and prolonged QT interval. I discussed with Dr. Leong, we will continue amiodarone as this time as the patient responded to amiodarone. Patient will need serial cardiac enzymes, 2D echo, evaluate for AICD placement. Home medications of Midrin and propantheline will be held due to arrhythmias. Dr. Leong will evaluate for AICD placement - Diagnosis (1) Sustained ventricular tachycardia (2) Cardiac syncope (3) Altered mental status (4) Sinus bradycardia (5) End stage renal disease (6) Peritoneal dialysis catheter in place (7) History of CVA (cerebrovascular accident) (8) History of atrial fibrillation Inpatient Certification: I certify that the inpatient services were ordered in accordance with Medicare regulations governing the order. This includes certification that hospital inpatient services are reasonable and necessary and in the case of services not specified as inpatient-only under 42 CFR 419.22(n), that they are appropriately provided as inpatient services in accordance to with the 2-midnight benchmark under 43 CFR 412.3(e) Estimated Total Length of Stay (Days): 5 Plans for Post Hospital Care: Not yet determined Review of Systems unobtainable due to mental condition, other (Poor historian) [facility] - History History Provided By: Medical Record - Medical History Medical History: Medical History (Last Reviewed 08/19/17 @ 14:08 by Santiago Diaz MD) Anemia Aphasia Atrial fibrillation Chest pain Clostridium difficile carrier Dyspnea Glaucoma Hypoxemia Major depression Pleural cavity effusion Pneumonia CAD (coronary artery disease) CVA (cerebral vascular accident) End stage renal disease HTN (hypertension) Peritoneal dialysis catheter in place COPD (chronic obstructive pulmonary disease) Depression Heart failure Hypotension - Surgical History Surgical History: Surgical History (Last Reviewed 08/19/17 @ 14:08 by Santiago Diaz MD) Hx of tonsillectomy - Tobacco History Second Hand Smoke Exposure: No Tobacco Use In Past 30 Days: No Smoking Status: Never smoker - Alcohol History How Often Do You Have a Drink Containing Alcohol: Never - Substance Use History Substance History: No History of Abuse - Travel History Recent Travel in the [place] Within the Last 8 Weeks: No Recent Travel Out of the Country Within the Last 8 Weeks: No - Immunization History Tetanus Immunization: Unsure Hx Influenza Vaccine This Season: Yes Medications and Allergies Active Medications: Active Medications Al Hydroxide/Mg Hydroxide (Milk Of Magnesia Liq) 30 ml PO Q12H PRN PRN Reason: Mild Constipation Aspirin (Ecotrin) 81 mg PO DAILY [facility] Bisacodyl (Dulcolax Supp) 10 mg RECTAL DAILY PRN PRN Reason: SEVERE CONSITIPATION Chlorhexidine Gluconate (Chlorhexidine 2% Cloth) 3 pack TOPICAL DAILY@0400 MARC Stop: 08/25/17 03:59 Chlorhexidine Gluconate (Chlorhexidine 2% Cloth) 3 pack TOPICAL DAILY@0400 PRN PRN Reason: Extra cloth needed Stop: 08/25/17 03:59 Clopidogrel Bisulfate (Plavix) 75 mg PO DAILY [facility] Famotidine (Pepcid Pf Inj) 20 mg IV.PUSH Q12HR [facility] Heparin Sodium (Porcine) (Heparin Inj) 5,000 units SQ Q12HR [facility] Amiodarone HCl 450 mg/ (Dextrose) 250 mls @ 33.33 mls/hr IV.CONT .Q7H31M [facility]; Protocol Last Admin: 08/19/17 11:58 Dose: 1 mg/min, 33.33 mls/hr Lactulose (Lactulose Liq) 30 ml PO DAILY PRN PRN Reason: SEVERE CONSITIPATION Senna/Docusate Sodium (Chelle-Colace) 1 tab PO BID [facility] Sennosides (Senokot) 17.2 mg PO Q12H PRN PRN Reason: Moderate Constipation Sodium Chloride (Ns Flush) 2 ml IV.FLUSH UNSCH PRN PRN Reason: FLUSH AFTER USING IV ACCESS Sodium Chloride (Ns Flush) 2 ml IV.FLUSH BID MARC Sodium Chloride (Ns Flush) 2 ml IV.FLUSH PRN PRN PRN Reason: FLUSH AFTER USING IV ACCESS Allergies Allergy/AdvReac Type Severity Reaction Status Date / Time No Known Allergies Allergy Verified 08/19/17 11:38 Home Medications Medication Instructions Recorded Confirmed Type clopidogrel [Plavix] 75 mg PO DAILY 08/19/17 08/19/17 History midodrine 10 mg PO BID 08/19/17 08/19/17 History mirtazapine [Remeron] 15 mg PO DAILY 08/19/17 08/19/17 History propantheline 15 mg PO DAILY 08/19/17 08/19/17 History Results - Labs CBC & Chem 7: 08/19/17 11:45 08/19/17 11:45 Labs: Short CBC 08/19/17 Range/Units 11:45 WBC 9.7 (4.0-11.0) th/mm3 Hgb 9.7 L (13.0-17.0) gm/dL Hct 28.3 L (39.0-51.0) % Plt Count 203 (150-450) th/mm3 BMP 08/19/17 11:45 Sodium 140 Potassium 3.5 Chloride 100 Carbon Dioxide 27.7 BUN 35 H Creatinine 7.51 H Calcium 9.0 Cardiac Enzymes 08/19/17 Range/Units 11:45 Total Creatine Kinase 71 (39-308) U/L Troponin I Less than 0.02 L (0.02-0.05) ng/mL Liver Function 08/19/17 Range/Units 11:45 Total Bilirubin 0.2 (0.2-1.0) mg/dL AST 20 (15-37) U/L ALT 19 (12-78) U/L Alkaline Phosphatase 67 (45-117) U/L Albumin 2.5 L (3.4-5.0) g/dL - Imaging Impressions Chest X-Ray 08/19/17 11:35 CONCLUSION: Minimal parenchymal changes left base suspicious for inflammatory process. Mild compensated cardiomegaly Exam Vital signs: Vital Signs 08/19/17 11:21 08/19/17 11:30 08/19/17 11:42 Temperature 99.3 F Pulse Rate 63 54 L Respiratory Rate 21 15 Blood Pressure 187/83 H 131/60 Pulse Oximetry 99 95 08/19/17 12:15 Temperature Pulse Rate 53 L Respiratory Rate 17 Blood Pressure 99/55 L Pulse Oximetry 99 Intake & Output 08/18/17 08/19/17 08/19/17 18:59 06:59 18:59 Weight 77.111 kg Narrative: GENERAL: This is an 82-year-old man, pale, disheveled ill-appearing, lethargic SKIN: Pale warm and dry HEAD: Atraumatic. Normocephalic. EYES: Pupils equal and round. No scleral icterus. No injection or drainage. ENT: No nasal bleeding or discharge. Mucous membranes dry. NECK: Trachea midline. No JVD. CARDIOVASCULAR: S1-S2 normal, sinus bradycardia with few ectopic beats. No appreciable murmurs. RESPIRATORY: No accessory muscle use. Clear to auscultation. Breath sounds equal bilaterally. GASTROINTESTINAL: Abdomen is obese and soft. No tenderness. Peritoneal dialysis catheter in place MUSCULOSKELETAL: No obvious deformities. Bilateral lower extremity with chronic insufficiency. NEUROLOGICAL: Awake and alert, confused oriented to person. No obvious cranial nerve deficits. Motor grossly within normal limits. Septic Shock Reassessment Septic shock perfusion: reassessment completed Caprini VTE Risk Assessment Caprini VTE Risk Assessment: Moderate/High Risk (score >= 2) Caprini Risk Assessment Model: Point Value = 1 Point Value = 2 Point Value = 3 Point Value = 5 Age 41-60 Minor surgery BMI > 25 kg/m2 Swollen legs Varicose veins or History of unexplained or recurrent spontaneous Oral contraceptives or hormone replacement Sepsis (< 1 month) Serious lung disease, including pneumonia (< 1 month) Abnormal pulmonary function Acute myocardial infarction Congestive heart failure (< 1 month) History of inflammatory bowel disease Medical patient at bed rest Age 61-74 Arthroscopic surgery Major open surgery (> 45 min) Laparoscopic surgery (> 45 min) Malignancy Confined to bed (> 72 hours) Immobilizing plaster cast Central venous access Age >= 75 History of VTE Family history of VTE Factor V Leiden Prothrombin [id number] Lupus anticoagulant Anticardiolipin antibodies Elevated serum homocysteine Heparin-induced thrombocytopenia Other congenital or acquired thrombophilia Stroke (< 1 month) Elective arthroplasty Hip, pelvis, or leg fracture Acute spinal cord injury (< 1 month) Prophylaxis Regimen: Total Risk Factor Score Risk Level Prophylaxis Regimen 0-1 Low Early ambulation 2 Moderate Order ONE of the following: *Sequential Compression Device (SCD) *Heparin 5000 units SQ BID 3-4 Higher Order ONE of the following medications: *Heparin 5000 units SQ TID *Enoxaparin/Lovenox 40 mg SQ daily (WT < 150 kg, CrCl > 30 mL/min) *Enoxaparin/Lovenox 30 mg SQ daily (WT < 150 kg, CrCl > 10-29 mL/min) *Enoxaparin/Lovenox 30 mg SQ BID (WT < 150 kg, CrCl > 30 mL/min) AND/OR *Sequential Compression Device (SCD) 5 or more Highest Order ONE of the following medications: *Heparin 5000 units SQ TID (Preferred with Epidurals) *Enoxaparin/Lovenox 40 mg SQ daily (WT < 150 kg, CrCl > 30 mL/min) *Enoxaparin/Lovenox 30 mg SQ daily (WT < 150 kg, CrCl > 10-29 mL/min) *Enoxaparin/Lovenox 30 mg SQ BID (WT < 150 kg, CrCl > 30 mL/min) AND *Sequential Compression Device (SCD) Assessment and Plan - Problem List (1) Sustained ventricular tachycardia Code(s): I47.2 - Ventricular tachycardia Status: Acute (2) Cardiac syncope Code(s): R55 - Syncope and collapse Status: Acute (3) Altered mental status Code(s): R41.82 - Altered mental status, unspecified Status: Acute (4) Sinus bradycardia Code(s): R00.1 - Bradycardia, unspecified Status: Acute (5) End stage renal disease Code(s): N18.6 - End stage renal disease Status: Chronic (6) Peritoneal dialysis catheter in place Code(s): Z99.2 - Dependence on renal dialysis Status: Chronic (7) History of CVA (cerebrovascular accident) Code(s): Z86.73 - Personal history of transient ischemic attack (TIA), and cerebral infarction without residual deficits Status: Chronic (8) History of atrial fibrillation Code(s): Z86.79 - Personal history of other diseases of the circulatory system Status: Acute - Assessment and Plan Plan: NEURO: Altered mental status History of TIA/CVA -Encephalopathy and syncope most likely related to sustained ventricular tachycardia -No further CVA or TIA workup needed at this time RESP: -Nasal cannula oxygen -DuoNeb every 6 hours as needed -Aggressive pulmonary toilet CV: Sustained ventricular tachycardia Sinus bradycardia History of atrial fibrillation -Await 2d echo, cardiology consult Dr. Leong, repeat troponin -Amiodarone 150 mg bolus followed by infusion per protocol -Monitor QTC frequently with the EKG -Avoid beta-blockers due to bradycardia GI: -N.p.o. until clinically stable -IV famotidine : End-stage renal disease on hemodialysis -Patient states he has fine arts model is Dr. Osman Long -Consult on-call fine arts model as Dr. Long is not available at [place] ID: -Monitor closely for infection HEME: -Monitor CBC, CMP, coags ENDO: -Monitor closely for hyperkalemia, hypoglycemia, hypomagnesemia PROPH: -Bilateral lower extremity SCDs. Heparin subcu, IV famotidine LINES: -Utilize peripheral IVs, central line if needed CC time 35 min Patient remains critically ill with life-threatening ventricular arrhythmia and cardiac syncope. He needs close ICU monitoring and is critical at this time with potential for acute cardiac decompensation and even Code Status: Full Discussed Condition With: Dang Watters (3) Altered mental status Qualifiers: Altered mental status type: unspecified Qualified Code(s): R41.82 - Altered mental status, unspecified
--- NOTE | 2017-08-19 13:51 | MB ---
cc: Luis Leong MD DATE: 08/19/2017 REASON FOR CONSULTATION: Syncope, ventricular tachyarrhythmias. 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 The patient has very little recollection of the events of today. He thinks he remembers losing consciousness a couple times for a few seconds. When he regained consciousness, there is no definitive disorientation. There is also no bowel or urinary incontinence. Here in the emergency department, he had sustained episode of wide complex tachycardia, possibly polymorphic. He had spontaneous reversion back to sinus rhythm. This episode similarly was associated with loss of consciousness. The patient denies any chest pain, shortness of breath, palpitations, pedal edema, paroxysmal nocturnal dyspnea. He reports compliance with medications. PAST MEDICAL HISTORY: 1. Hypertension. 2. Paroxysmal atrial fibrillation. 3. Chronic obstructive pulmonary disease. 4. End-stage renal disease. 5. Left-sided CVA in 03/2017. 6. Pneumonia and respiratory failure 05/2017. 7. Coronary artery disease with history of right coronary artery stenting with a drug-eluting stent 04/02/2017. 8. Hyperlipidemia. 9. Sleep apnea. PAST SURGICAL HISTORY: 1. Tonsillectomy. 2. Peritoneal dialysis catheter placement. 3. Left cataract surgery. CARDIAC MEDICATIONS AT HOME: 1. Plavix 75 mg daily. 2. Midodrine 10 mg b.i.d. ALLERGIES: NO KNOWN DRUG ALLERGIES. FAMILY HISTORY: Noncontributory. SOCIAL HISTORY: The patient denies any history of alcohol or tobacco abuse. REVIEW OF SYSTEMS: As in history of present illness, otherwise negative or noncontributory. He also currently denies headache, abdominal pain, melena, dyspepsia, bright red blood per rectum, recent flu symptoms, cough, wheezing. PHYSICAL EXAMINATION: VITAL SIGNS: His blood pressure 99/55 with a pulse of 53, respirations 17. GENERAL: He is a well-developed, well-nourished white male, in no acute distress. NECK: Jugular venous pressure is normal. Carotid pulses are 2+ bilaterally and without bruits. CHEST: Reveals clear lungs garcia anteriorly. CARDIAC: He has a bradycardic, regular rhythm without S3, S4, or murmur. ABDOMEN: He has a soft, nontender abdomen. Bowel sounds are present. There is no definite hepatosplenomegaly. EXTREMITIES: Reveals no clubbing, cyanosis or edema. DIAGNOSTIC DATA: Chest x-ray shows minimal parenchymal changes in the left base, suspicious for inflammatory process. LABORATORY DATA: EKG shows sinus bradycardia, nonspecific T-wave abnormality, prolonged QT interval. Includes WBC 9.7, hemoglobin 9.7, platelets 203. Potassium 3.5, BUN 35, creatinine 7.51. CK 71. Troponin less than 0.02. Magnesium 2.1. INR 1.1. IMPRESSION: Multiple syncopal episodes, paroxysmal ventricular tachyarrhythmias in this 82-year-old white male with a history of hypertension, possible paroxysmal atrial fibrillation, COPD, end-stage renal disease, CVA, coronary artery disease, sleep apnea. His rhythm strips here in the emergency department have been reviewed. Unfortunately, there is considerable baseline artifact. Some of the strips appear to be ventricular fibrillation. There is no definitive evidence for [place] He does have a prolonged QT interval on EKG, of unclear etiology. Overall, there is no definite evidence for acute coronary syndrome. It is unclear whether he has been taking aspirin along with the Plavix. Reportedly, he has a history of drug-eluting stent placement 5 months ago. RECOMMENDATIONS: 1. Await his 2-D echo. 2. Agree with intravenous amiodarone for now. 3. Continue his Plavix and add daily baby aspirin. 4. To consider AICD implantation. MD MEHUL Villalobos/GEOVANNA , 01:27 PM , 01:49 PM YEISON
--- NOTE | 2017-08-19 16:18 | P.CONNP ---
<Jania Gallagher - Last Filed: 08/19/17 16:05> History of Present Illness Service: Nephrology Consult date: 08/19/17 Reason for Consult: ESRD on PD Primary Care Provider: [facility] Family Provider: Stephen Mccray MD Chief Complaint: Sustained VTAC History of Present Illness: This is an 82 y/o male with ESRD maintained on PD who was admitted from [facility] for syncope. In route by EMS he was in A fib with SVR, had runs of Vtach that were self limiting. In the ER he had another witnessed episode and was being prepared for defibrillation but again spontaneously converted to NSR. His BP remained stable. Of note he was discharged from [facility] on Thursday where he was admitted for hypotension. His PD has been ongoing, had dialysis last night. Electrolytes are unremarkable. he has been evaluated by shed boss and charter coordinator. An Amiodarone infusion was started, and he will be transferred to ICU for monitoring. We were consulted for dialysis management. He is sleepy, when awake has no complaints. Review of Systems unobtainable due to mental condition PMFSH - History History Provided By: Medical Record - Medical History Medical History: Medical History (Last Reviewed 08/19/17 @ 14:08 by Santiago Diaz MD) Anemia Aphasia Atrial fibrillation Chest pain Clostridium difficile carrier Dyspnea Glaucoma Hypoxemia Major depression Pleural cavity effusion Pneumonia CAD (coronary artery disease) CVA (cerebral vascular accident) End stage renal disease HTN (hypertension) Peritoneal dialysis catheter in place COPD (chronic obstructive pulmonary disease) Depression Heart failure Hypotension - Surgical History Surgical History: Surgical History (Last Reviewed 08/19/17 @ 14:08 by Santiago Diaz MD) Hx of tonsillectomy - Tobacco History Second Hand Smoke Exposure: No Tobacco Use In Past 30 Days: No Smoking Status: Never smoker - Alcohol History How Often Do You Have a Drink Containing Alcohol: Never - Substance Use History Substance History: No History of Abuse - Travel History History of Recent Travel: No Recent Travel in the [place] Within the Last 8 Weeks: No Recent Travel Out of the Country Within the Last 8 Weeks: No - Immunization History Tetanus Immunization: Unsure Hx Influenza Vaccine This Season: Yes Medications and Allergies Allergies Allergy/AdvReac Type Severity Reaction Status Date / Time No Known Allergies Allergy Verified 08/19/17 11:38 Home Medications Medication Instructions Recorded Confirmed Type clopidogrel [Plavix] 75 mg PO DAILY 08/19/17 08/19/17 History midodrine 10 mg PO BID 08/19/17 08/19/17 History mirtazapine [Remeron] 15 mg PO DAILY 08/19/17 08/19/17 History propantheline 15 mg PO DAILY 08/19/17 08/19/17 History Active Medications: Active Medications Al Hydroxide/Mg Hydroxide (Milk Of Magnesia Liq) 30 ml PO Q12H PRN PRN Reason: Mild Constipation Aspirin (Ecotrin) 81 mg PO DAILY [facility] Last Admin: 08/19/17 13:55 Dose: 81 mg Bisacodyl (Dulcolax Supp) 10 mg RECTAL DAILY PRN PRN Reason: SEVERE CONSITIPATION Chlorhexidine Gluconate (Chlorhexidine 2% Cloth) 3 pack TOPICAL DAILY@0400 [facility] Stop: 08/25/17 03:59 Chlorhexidine Gluconate (Chlorhexidine 2% Cloth) 3 pack TOPICAL DAILY@0400 PRN PRN Reason: Extra cloth needed Stop: 08/25/17 03:59 Clopidogrel Bisulfate (Plavix) 75 mg PO DAILY [facility] Famotidine (Pepcid Pf Inj) 10 mg IV.PUSH Q12HR [facility] Heparin Sodium (Porcine) (Heparin Inj) 5,000 units SQ Q12HR [facility] Amiodarone HCl 450 mg/ (Dextrose) 250 mls @ 33.33 mls/hr IV.CONT .Q7H31M [facility]; Protocol Last Admin: 08/19/17 11:58 Dose: 1 mg/min, 33.33 mls/hr Lactulose (Lactulose Liq) 30 ml PO DAILY PRN PRN Reason: SEVERE CONSITIPATION Senna/Docusate Sodium (Chelle-Colace) 1 tab PO BID [facility] Sennosides (Senokot) 17.2 mg PO Q12H PRN PRN Reason: Moderate Constipation Sodium Chloride (Ns Flush) 2 ml IV.FLUSH BID [facility] Sodium Chloride (Ns Flush) 2 ml IV.FLUSH PRN PRN PRN Reason: FLUSH AFTER USING IV ACCESS Exam Vital signs: Vital Signs 08/19/17 11:21 08/19/17 11:30 08/19/17 11:42 Temperature 99.3 F Pulse Rate 63 54 L Respiratory Rate 21 15 Blood Pressure 187/83 H 131/60 Pulse Oximetry 99 95 08/19/17 12:15 08/19/17 13:15 Temperature Pulse Rate 53 L 50 L Respiratory Rate 17 17 Blood Pressure 99/55 L 128/59 L Pulse Oximetry 99 99 Intake & Output 08/18/17 08/19/17 08/19/17 18:59 06:59 18:59 Weight 77.111 kg - Constitutional no acute distress - Routine HEENT Exam Head: Present: normocephalic Eye: Present: EOMI ENT: Present: mucous membranes moist - Routine Neck Exam Present: supple, full ROM - Routine Respiratory Exam Present: CTA bilaterally. Absent: accessory muscle use, rhonchi, wheezes - Routine Cardiovascular Exam Present: bradycardia, irregular rhythm, irregularly irregular. Absent: JVD - Routine Abdominal Exam Present: soft, normoactive bowel sounds Comments: PD catheter in place - Routine Extremities Exam Present: full ROM, pulses intact. Absent: cyanosis, edema - Routine Skin Exam Present: intact, warm - Routine Neurological Exam Present: CN II-XII intact, normal speech sleepy but arouses to name. Results - Lab Results 08/19/17 11:45 08/19/17 11:45 Most recent lab results Calcium 9.0 mg/dL (8.5-10.1) 08/19/17 11:45 Magnesium 2.1 mg/dL (1.5-2.5) 08/19/17 11:45 Assessment and Plan - Assessment (1) End stage renal disease Code(s): N18.6 - End stage renal disease Status: Chronic Plan: Last PD was last night. His regimen consists of 11 hours, 6 cycles, 2500 ml fill volume, no last fill. We will use 1.5% solution. Monitor fluid status and electrolytes intermittently. Avoid excess IVF administration. Gadolinium in contraindicated. Midodrine if needed for hypotension. Dose medications appropriate to renal status. (2) Cardiac syncope Code(s): R55 - Syncope and collapse Status: Acute Plan: Due to bradycardia and V tach. Cardiology is following. Work up in progress. Currently on Amiodarone gtt. Avoid beta blockers. (3) Anemia associated with chronic renal failure Code(s): D63.1 - Anemia in chronic kidney disease Status: Acute Plan: We will investigate when the last dose of Epogen was given. Monitor Hemoglobin. Obtain iron profile. (4) History of CVA (cerebrovascular accident) Code(s): Z86.73 - Personal history of transient ischemic attack (TIA), and cerebral infarction without residual deficits Status: Chronic Plan: On Plavix. Needs assistance with ADLs. <Gabriel Salcedo - Last Filed: 08/20/17 08:05> History of Present Illness Primary Care Provider: [facility] Family Provider: Stephen Mccray MD [facility] - Medical History Medical History: Medical History (Last Reviewed 08/19/17 @ 14:08 by Santiago Diaz MD) Anemia Aphasia Atrial fibrillation Chest pain Clostridium difficile carrier Dyspnea Glaucoma Hypoxemia Major depression Pleural cavity effusion Pneumonia CAD (coronary artery disease) CVA (cerebral vascular accident) End stage renal disease HTN (hypertension) Peritoneal dialysis catheter in place COPD (chronic obstructive pulmonary disease) Depression Heart failure Hypotension - Surgical History Surgical History: Surgical History (Last Reviewed 08/19/17 @ 14:08 by Santiago Diaz MD) Hx of tonsillectomy Medications and Allergies Active Medications: Active Medications Al Hydroxide/Mg Hydroxide (Milk Of Emy Bell) 30 ml PO Q12H PRN PRN Reason: Mild Constipation Aspirin (Ecotrin) 81 mg PO DAILY [facility] Last Admin: 08/19/17 13:55 Dose: 81 mg Bisacodyl (Dulcolax Supp) 10 mg RECTAL DAILY PRN PRN Reason: SEVERE CONSITIPATION Chlorhexidine Gluconate (Chlorhexidine 2% Cloth) 3 pack TOPICAL DAILY@0400 [facility] Stop: 08/25/17 03:59 Chlorhexidine Gluconate (Chlorhexidine 2% Cloth) 3 pack TOPICAL DAILY@0400 PRN PRN Reason: Extra cloth needed Stop: 08/25/17 03:59 Chlorhexidine Gluconate (Chlorhexidine 2% Cloth) 3 pack TOPICAL DOCUMENTATION CONSULTANT [facility] Stop: 08/22/17 17:18 Clopidogrel Bisulfate (Plavix) 75 mg PO DAILY [facility] Famotidine (Pepcid Pf Inj) 10 mg IV.PUSH Q12HR [facility] Last Admin: 08/19/17 21:15 Dose: 10 mg Heparin Sodium (Porcine) (Heparin Inj) 5,000 units SQ Q12HR [facility] Last Admin: 08/19/17 21:18 Dose: 5,000 units Heparin Sodium (Porcine) (Heparin Inj) 1,000 units OTHER UNSCH PRN PRN Reason: WITH PERITONEAL DIALYSIS Amiodarone HCl 450 mg/ (Dextrose) 250 mls @ 33.33 mls/hr IV.CONT .Q7H31M [facility]; Protocol Last Infusion: 08/20/17 00:05 Dose: Infused Cefazolin Sodium/Dextrose (Ancef 2 Gm Premix Inj) 2 gm in 50 mls @ 100 mls/hr IV.SIG DOCUMENTATION CONSULTANT [facility] Stop: 08/22/17 17:19 Sodium Chloride (Ns Inj) 1,000 mls @ 150 mls/hr IV.CONT .Q6H40M [facility] Stop: 08/20/17 14:00 Vancomycin HCl 1,000 mg/ (Sodium Chloride) 250 mls @ 250 mls/hr IV.SIG DOCUMENTATION CONSULTANT [facility] Stop: 08/22/17 17:19 Amiodarone HCl 150 mg/ (Dextrose) 103 mls @ 618 mls/hr IV.SIG .Q10M ONE Stop: 08/20/17 08:09 Lactulose (Lactulose Liq) 30 ml PO DAILY PRN PRN Reason: SEVERE CONSITIPATION Mupirocin (Bactroban 2% Nasal Oint) 1 applicatio EACH NARE DOCUMENTATION CONSULTANT [facility] Stop: 08/22/17 17:18 Povidone Iodine (Betadine 5% Antisepsis Kit) 1 applicatio EACH NARE DOCUMENTATION CONSULTANT [facility] Stop: 08/22/17 17:18 Senna/Docusate Sodium (Chelle-Colace) 1 tab PO BID [facility] Last Admin: 08/19/17 21:15 Dose: 1 tab Sennosides (Senokot) 17.2 mg PO Q12H PRN PRN Reason: Moderate Constipation Sodium Chloride (Ns Flush) 2 ml IV.FLUSH BID [facility] Last Admin: 08/19/17 21:19 Dose: 2 ml Sodium Chloride (Ns Flush) 2 ml IV.FLUSH PRN PRN PRN Reason: FLUSH AFTER USING IV ACCESS Sodium Chloride (Ns Flush) 10 ml IV.FLUSH UNSCH PRN PRN Reason: WITH PERITONEAL DIALYSIS Exam Vital signs: Vital Signs 08/19/17 11:21 08/19/17 11:30 08/19/17 11:42 Temperature 99.3 F Pulse Rate 63 54 L Respiratory Rate 21 15 Blood Pressure 187/83 H 131/60 Pulse Oximetry 99 95 08/19/17 12:15 08/19/17 13:15 08/19/17 14:15 Temperature Pulse Rate 53 L 50 L 52 L Respiratory Rate 17 17 18 Blood Pressure 99/55 L 128/59 L 101/52 L Pulse Oximetry 99 99 100 08/19/17 15:15 08/19/17 16:15 08/19/17 17:15 Temperature Pulse Rate 46 L 108 H 50 L Respiratory Rate 17 17 15 Blood Pressure 115/63 108/58 L 126/4 L Pulse Oximetry 99 08/19/17 17:36 08/19/17 17:49 08/19/17 18:00 Temperature 97.8 F Pulse Rate 54 L 41 L 58 L Respiratory Rate 16 19 Blood Pressure 109/54 L 129/67 127/60 Pulse Oximetry 99 96 08/19/17 18:18 08/19/17 18:30 08/19/17 18:46 Temperature Pulse Rate 54 L 56 L 50 L Respiratory Rate 18 19 19 Blood Pressure 103/58 L 126/60 Pulse Oximetry 96 100 98 08/19/17 19:00 08/19/17 19:15 08/19/17 19:31 Temperature Pulse Rate 61 66 69 Respiratory Rate 20 19 18 Blood Pressure 120/81 116/58 L 137/86 Pulse Oximetry 96 100 99 08/19/17 20:00 08/19/17 20:15 08/19/17 20:31 Temperature 98.4 F Pulse Rate 74 72 80 Respiratory Rate 19 18 18 Blood Pressure 124/79 123/79 135/80 Pulse Oximetry 100 99 99 08/19/17 21:00 08/19/17 21:11 08/19/17 21:16 Temperature Pulse Rate 69 78 80 Respiratory Rate 15 19 19 Blood Pressure 123/76 120/63 Pulse Oximetry 96 97 97 08/19/17 21:30 08/19/17 21:35 08/19/17 21:45 Temperature Pulse Rate 79 0 L Respiratory Rate 16 21 Blood Pressure 124/55 L 95/60 L Pulse Oximetry 99 98 92 L 08/19/17 22:00 08/19/17 22:01 08/19/17 22:15 Temperature Pulse Rate 51 L 49 L 75 Respiratory Rate 18 18 19 Blood Pressure 173/83 H 122/65 Pulse Oximetry 100 100 96 08/19/17 22:25 08/19/17 22:30 08/19/17 22:52 Temperature Pulse Rate 258 H 100 H 57 L Respiratory Rate 29 H 26 H Blood Pressure 114/65 90/52 L Pulse Oximetry 89 L 100 08/19/17 23:00 08/19/17 23:15 08/19/17 23:18 Temperature Pulse Rate 52 L 48 L 48 L Respiratory Rate 21 23 19 Blood Pressure 85/58 L 84/49 L 71/48 L Pulse Oximetry 100 98 83 L 08/19/17 23:20 08/19/17 23:30 08/19/17 23:45 Temperature Pulse Rate 49 L 49 L 47 L Respiratory Rate 20 19 18 Blood Pressure 102/59 L 102/60 104/55 L Pulse Oximetry 92 L 89 L 99 08/20/17 00:00 08/20/17 00:16 08/20/17 00:30 Temperature 98.2 F Pulse Rate 48 L 53 L 49 L Respiratory Rate 18 15 17 Blood Pressure 83/54 L 119/62 124/59 L Pulse Oximetry 94 L 98 98 08/20/17 00:40 08/20/17 00:46 08/20/17 01:00 Temperature Pulse Rate 48 L 48 L 47 L Respiratory Rate 16 15 Blood Pressure 101/62 Pulse Oximetry 93 L 99 08/20/17 01:16 08/20/17 01:31 08/20/17 01:45 Temperature Pulse Rate 45 L 47 L 45 L Respiratory Rate 17 17 17 Blood Pressure 99/54 L 94/59 L 92/55 L Pulse Oximetry 100 100 100 08/20/17 02:00 08/20/17 02:16 08/20/17 02:30 Temperature Pulse Rate 45 L 46 L 44 L Respiratory Rate 17 17 17 Blood Pressure 86/58 L 100/62 91/59 L Pulse Oximetry 100 100 100 08/20/17 02:45 08/20/17 03:00 08/20/17 03:15 Temperature Pulse Rate 46 L 50 L 53 L Respiratory Rate 18 14 17 Blood Pressure 110/62 106/65 111/63 Pulse Oximetry 100 99 100 08/20/17 03:30 08/20/17 03:46 08/20/17 04:00 Temperature 97.8 F Pulse Rate 51 L 45 L 47 L Respiratory Rate 17 17 17 Blood Pressure 129/58 L 98/55 L 103/59 L Pulse Oximetry 97 100 100 08/20/17 04:15 08/20/17 04:30 08/20/17 04:47 Temperature Pulse Rate 44 L 54 L 71 Respiratory Rate 18 18 16 Blood Pressure 106/56 L 105/56 L 128/61 Pulse Oximetry 100 100 100 08/20/17 05:00 08/20/17 05:01 08/20/17 05:15 Temperature Pulse Rate 76 78 75 Respiratory Rate 19 20 19 Blood Pressure 113/61 125/59 L Pulse Oximetry 85 L 84 L 84 L 08/20/17 05:30 08/20/17 05:45 08/20/17 06:00 Temperature Pulse Rate 74 77 68 Respiratory Rate 17 17 15 Blood Pressure 120/67 126/80 Pulse Oximetry 93 L 70 L 100 08/20/17 06:01 08/20/17 06:16 08/20/17 06:45 Temperature Pulse Rate 78 74 74 Respiratory Rate 16 18 17 Blood Pressure 115/66 96/59 L 119/77 Pulse Oximetry 96 99 97 08/20/17 07:00 08/20/17 07:01 08/20/17 07:16 Temperature Pulse Rate 85 70 64 Respiratory Rate 18 17 18 Blood Pressure 98/69 L 108/83 Pulse Oximetry 95 93 L 95 Intake & Output 08/19/17 08/20/17 08/20/17 18:59 06:59 18:59 Intake Total 800 / 800 Balance 800 / 800 Weight 77.111 kg Intake: IV 800 / 800 Cordarone Inj 450 MG In D5W Inj 500 / 500 241 ML @ 1 MG/MIN 33.33 mls/hr IV.CONT .Q7H31M [facility] Rx#: [id number] Cordarone Inj 150 MG In D5W Inj 100 / 100 97 ML @ 100 mls/hr IV.SIG ONCE ONE Rx#:[id number] Magnesium Sulfate 1 gm/D5W 100 200 / 200 ml Premix 100 ML @ 100 mls/hr IV.SIG Q1H [facility] Rx#:[id number] Results - Lab Results 08/19/17 11:45 08/20/17 05:27 Most recent lab results Calcium 9.2 mg/dL (8.5-10.1) 08/20/17 05:27 Magnesium 3.1 mg/dL (1.5-2.5) H D 08/20/17 05:27 Assessment and Plan - Assessment (1) End stage renal disease Code(s): N18.6 - End stage renal disease Status: Chronic (2) Cardiac syncope Code(s): R55 - Syncope and collapse Status: Acute (3) Anemia associated with chronic renal failure Code(s): D63.1 - Anemia in chronic kidney disease Status: Acute (4) History of CVA (cerebrovascular accident) Code(s): Z86.73 - Personal history of transient ischemic attack (TIA), and cerebral infarction without residual deficits Status: Chronic - Attending Attestation patient was seen and examined in ICU on the night of 08/19. Agree with above assessment and plan. I ordered a dose of potassium chloride. PD ongoing. On Amiodarone drip. Heart rhythm irregular.
--- NOTE | 2017-08-19 17:17 | P.PNADD ---
Addendum to Inpatient Note Additional information: Patient recently evaluated at [facility] past week with nonsustained ventricular tachycardia. Echo unremarkable. Nuclear stress test 2 days ago normal. Medical therapy limited by his bradycardia. Discussed with Dr. Main. Will proceed with ICD implantation.
[2017-08-19] MEDS ORDERED: Chlorhexidine Gluconate 2% 1 Pack (2 Cloths) TOPICAL SCH (17:30)
[2017-08-19] MEDS ORDERED: Mupirocin 2% Nasal Oint Topical Syringe EACH NARE SCH (17:30)
[2017-08-19] MEDS ORDERED: Heparin 10,000 UNITS/10 ML Vial (for IV use) OTHER PRN (21:00)
[2017-08-19] MEDS ORDERED: Famotidine 20 MG Tablet PO SCH (21:00)
[2017-08-19] MEDS: Senna/Docusate Sodium 8.6/50 MG Tablet PO SCH (21:15)
[2017-08-19] MEDS: Famotidine PF Inj 20 MG/2 ML Vial IV.PUSH SCH (21:15)
[2017-08-19] MEDS: Heparin - SQ 10,000 UNITS/ML Vial SQ SCH (21:18)
[2017-08-19] MEDS: Mag Sulf 1 gm/100 ml Premix 100 ML IV.SIG SCH ×2 (23:00→23:41)
[2017-08-20] MEDS ORDERED: Chlorhexidine Gluconate 2% 1 Pack (2 Cloths) TOPICAL PRN (04:00)
[2017-08-20] MEDS ORDERED: Sodium Bicarbonate 8.4% Inj 50 MEQ/50 ML Syringe IV.CONT ONE (05:00)
[2017-08-20 06:16] LABS: % Iron Saturation 39.4 % (20-50); Alanine Aminotransferase 18 U/L (12-78); Albumin 2.4 g/dL (3.4-5.0); Alkaline Phosphatase 52 U/L (45-117); Anion Gap 12 meq/L (5-15); Aspartate Aminotransferase 19 U/L (15-37); Blood Urea Nitrogen 34 mg/dL (7-18); Calcium 9.2 mg/dL (8.5-10.1); Carbon Dioxide 26.5 meq/L (21.0-32.0); Chloride 100 meq/L (98-107); Glomerular Filtration Rate 7 mL/min (>89); Glucose,Random 95 mg/dL (74-106); Iron 81 mcg/dL (65-175); Magnesium 3.1 mg/dL (1.5-2.5); Potassium 3.8 meq/L (3.5-5.1); Sodium 138 meq/L (136-145); Total Iron Binding Capacity 206 mcg/dL (250-450); Total Protein 6.1 g/dL (6.4-8.2)
[2017-08-20] MEDS ORDERED: Amiodarone Inj 150 MG in Dextrose 5% in Water Inj 100 ML IV.SIG ONE ×4 (08:00→22:38)
[2017-08-20] MEDS: Famotidine PF Inj 20 MG/2 ML Vial IV.PUSH SCH (08:04)
[2017-08-20] MEDS: Senna/Docusate Sodium 8.6/50 MG Tablet PO SCH ×2 (08:32→21:00)
[2017-08-20] MEDS: Heparin - SQ 10,000 UNITS/ML Vial SQ SCH ×2 (08:32→22:20)
--- NOTE | 2017-08-20 08:49 | P.PNCA ---
Subjective Interval history: Currently denies SOB, CP, dizziness, palpitations. Physical Exam Vital signs: Vital Signs 08/19/17 11:21 08/19/17 11:30 08/19/17 11:42 Temperature 99.3 F Pulse Rate 63 54 L Respiratory Rate 21 15 Blood Pressure 187/83 H 131/60 Pulse Oximetry 99 95 08/19/17 12:15 08/19/17 13:15 08/19/17 14:15 Temperature Pulse Rate 53 L 50 L 52 L Respiratory Rate 17 17 18 Blood Pressure 99/55 L 128/59 L 101/52 L Pulse Oximetry 99 99 100 08/19/17 15:15 08/19/17 16:15 08/19/17 17:15 Temperature Pulse Rate 46 L 108 H 50 L Respiratory Rate 17 17 15 Blood Pressure 115/63 108/58 L 126/4 L Pulse Oximetry 99 08/19/17 17:36 08/19/17 17:49 08/19/17 18:00 Temperature 97.8 F Pulse Rate 54 L 41 L 58 L Respiratory Rate 16 19 Blood Pressure 109/54 L 129/67 127/60 Pulse Oximetry 99 96 08/19/17 18:18 08/19/17 18:30 08/19/17 18:46 Temperature Pulse Rate 54 L 56 L 50 L Respiratory Rate 18 19 19 Blood Pressure 103/58 L 126/60 Pulse Oximetry 96 100 98 08/19/17 19:00 08/19/17 19:15 08/19/17 19:31 Temperature Pulse Rate 61 66 69 Respiratory Rate 20 19 18 Blood Pressure 120/81 116/58 L 137/86 Pulse Oximetry 96 100 99 08/19/17 20:00 08/19/17 20:15 08/19/17 20:31 Temperature 98.4 F Pulse Rate 74 72 80 Respiratory Rate 19 18 18 Blood Pressure 124/79 123/79 135/80 Pulse Oximetry 100 99 99 08/19/17 21:00 08/19/17 21:11 08/19/17 21:16 Temperature Pulse Rate 69 78 80 Respiratory Rate 15 19 19 Blood Pressure 123/76 120/63 Pulse Oximetry 96 97 97 08/19/17 21:30 08/19/17 21:35 08/19/17 21:45 Temperature Pulse Rate 79 0 L Respiratory Rate 16 21 Blood Pressure 124/55 L 95/60 L Pulse Oximetry 99 98 92 L 07/11/18 22:00 08/19/17 22:01 08/19/17 22:15 Temperature Pulse Rate 51 L 49 L 75 Respiratory Rate 18 18 19 Blood Pressure 173/83 H 122/65 Pulse Oximetry 100 100 96 08/19/17 22:25 08/19/17 22:30 08/19/17 22:52 Temperature Pulse Rate 258 H 100 H 57 L Respiratory Rate 29 H 26 H Blood Pressure 114/65 90/52 L Pulse Oximetry 89 L 100 08/19/17 23:00 08/19/17 23:15 08/19/17 23:18 Temperature Pulse Rate 52 L 48 L 48 L Respiratory Rate 21 23 19 Blood Pressure 85/58 L 84/49 L 71/48 L Pulse Oximetry 100 98 83 L 08/19/17 23:20 08/19/17 23:30 08/19/17 23:45 Temperature Pulse Rate 49 L 49 L 47 L Respiratory Rate 20 19 18 Blood Pressure 102/59 L 102/60 104/55 L Pulse Oximetry 92 L 89 L 99 08/20/17 00:00 08/20/17 00:16 08/20/17 00:30 Temperature 98.2 F Pulse Rate 48 L 53 L 49 L Respiratory Rate 18 15 17 Blood Pressure 83/54 L 119/62 124/59 L Pulse Oximetry 94 L 98 98 08/20/17 00:40 08/20/17 00:46 08/20/17 01:00 Temperature Pulse Rate 48 L 48 L 47 L Respiratory Rate 16 15 Blood Pressure 101/62 Pulse Oximetry 93 L 99 08/20/17 01:16 08/20/17 01:31 08/20/17 01:45 Temperature Pulse Rate 45 L 47 L 45 L Respiratory Rate 17 17 17 Blood Pressure 99/54 L 94/59 L 92/55 L Pulse Oximetry 100 100 100 08/20/17 02:00 08/20/17 02:16 08/20/17 02:30 Temperature Pulse Rate 45 L 46 L 44 L Respiratory Rate 17 17 17 Blood Pressure 86/58 L 100/62 91/59 L Pulse Oximetry 100 100 100 08/20/17 02:45 08/20/17 03:00 08/20/17 03:15 Temperature Pulse Rate 46 L 50 L 53 L Respiratory Rate 18 14 17 Blood Pressure 110/62 106/65 111/63 Pulse Oximetry 100 99 100 08/20/17 03:30 08/20/17 03:46 08/20/17 04:00 Temperature 97.8 F Pulse Rate 51 L 45 L 47 L Respiratory Rate 17 17 17 Blood Pressure 129/58 L 98/55 L 103/59 L Pulse Oximetry 97 100 100 08/20/17 04:15 08/20/17 04:30 08/20/17 04:47 Temperature Pulse Rate 44 L 54 L 71 Respiratory Rate 18 18 16 Blood Pressure 106/56 L 105/56 L 128/61 Pulse Oximetry 100 100 100 08/20/17 05:00 08/20/17 05:01 08/20/17 05:15 Temperature Pulse Rate 76 78 75 Respiratory Rate 19 20 19 Blood Pressure 113/61 125/59 L Pulse Oximetry 85 L 84 L 84 L 08/20/17 05:30 08/20/17 05:45 08/20/17 06:00 Temperature Pulse Rate 74 77 68 Respiratory Rate 17 17 15 Blood Pressure 120/67 126/80 Pulse Oximetry 93 L 70 L 100 08/20/17 06:01 08/20/17 06:16 08/20/17 06:45 Temperature Pulse Rate 78 74 74 Respiratory Rate 16 18 17 Blood Pressure 115/66 96/59 L 119/77 Pulse Oximetry 96 99 97 08/20/17 07:00 08/20/17 07:01 08/20/17 07:16 Temperature Pulse Rate 85 70 64 Respiratory Rate 18 17 18 Blood Pressure 98/69 L 108/83 Pulse Oximetry 95 93 L 95 Intake & Output 08/19/17 08/20/17 08/20/17 18:59 06:59 18:59 Intake Total 800 / 800 Balance 800 / 800 Weight 77.111 kg Intake: IV 800 / 800 Cordarone Inj 450 MG In D5W Inj 500 / 500 241 ML @ 1 MG/MIN 33.33 mls/hr IV.CONT .Q7H31M [facility] Rx#: [id number] Cordarone Inj 150 MG In D5W Inj 100 / 100 97 ML @ 100 mls/hr IV.SIG ONCE ONE Rx#:[id number] Magnesium Sulfate 1 gm/D5W 100 200 / 200 ml Premix 100 ML @ 100 mls/hr IV.SIG Q1H [facility] Rx#:[id number] - Constitutional no acute distress - Routine Neck Exam Absent: JVD - Routine Respiratory Exam Present: CTA bilaterally - Routine Cardiovascular Exam Present: S1, S2, bradycardia. Absent: murmur, gallop - Routine Abdominal Exam Present: soft, normoactive bowel sounds. Absent: tenderness, organomegaly - Routine Extremities Exam Absent: cyanosis, clubbing, edema Assessment and Plan - Assessment (1) Sustained ventricular tachycardia Code(s): I47.2 - Ventricular tachycardia Status: Acute Plan: Continued hemodynamically compromising wide complex tachyarrhythmias overnight responsive to additional IV Amiodarone bolusing. Morphology of many of the episodes suggestive of [place]. QT interval prolonged on EKG's, unclear etiology. Recent nuclear stress test and echo normal. REC AICD implant today. As he will need >40% pacing back up will place dual chamber device. (2) Coronary artery disease Code(s): I25.10 - Atherosclerotic heart disease of [place] coronary artery without angina pectoris Status: Chronic Plan: Stable CAD status. No recent angina. Continue Plavix, aspirin. (3) Paroxysmal atrial fibrillation Code(s): I48.0 - Paroxysmal atrial fibrillation Status: Acute Plan: Not well documented history of atrial fibrillation. Can track any future atrial fibrillation via ICD transmissions. Continue daily aspirin. Likely to remain on Amiodarone post discharge as well. - Plan Code Status: full code Discussed Condition With: patient (2) Coronary artery disease Qualifiers: Coronary Disease-Associated Artery/Lesion type: [place] artery [place] vs. transplanted heart: [place] heart Associated angina: without angina Qualified Code(s): I25.10 - Atherosclerotic heart disease of [place] coronary artery without angina pectoris
[2017-08-20] MEDS ORDERED: Potassium Chlor 10 mEq Premix 10 MEQ/100 ML PIGGYBACK IV.SIG ONE (08:50)
--- NOTE | 2017-08-20 09:05 | P.PNCC ---
Subjective Subjective Remarks/Hospital Course: Patient is an 82-year-old male with a past medical history of hypertension, obstructive sleep apnea, COPD, history of CVA, end-stage renal disease on peritoneal dialysis who was recently admitted to [place] from 05/21/17 to for respiratory failure. He was brought into the emergency department today for multiple episodes of syncope. EMS strips showed several episodes of nonsustained V. tach. In the emergency department patient had a single episode of sustained V. tach, up to 54 seconds, with loss of consciousness. Pads were placed for emergency defibrillation however prior to defibrillation patient regained sinus rhythm and consciousness. Patient was given 150 mg amiodarone bolus IV, followed by amiodarone infusion. Dr. Leong from cardiology was consulted. I evaluated the patient in the emergency department. Patient is lying in bed denies chest pain. He has sinus bradycardia. I reviewed the EMS EKG strips, and the EKG done in the ED. He has sinus bradycardia, and prolonged QT interval. I discussed with Dr. Leong, we will continue amiodarone as this time as the patient responded to amiodarone. Patient will need serial cardiac enzymes, 2D echo, evaluate for AICD placement. Home medications of Midrin and propantheline will be held due to arrhythmias. Dr. Leong will evaluate for AICD placement Subjective 08/20: Overnight, 3 minute long episodes of V. tach with intermittent loss of conscious. CPR initiated with chest compressions 3 minutes. Defibrillator with 200 J. Rebolus with amiodarone 150 mg at 1040. Patient still intermittently in V. tach/bradycardic rhythm. Rebolus with 150 mg of amiodarone and currently on amiodarone drip at 1 mg/min. Lidocaine will be the next choice. Currently resting in bed and appears comfortable despite the ongoing unstable rhythm Objective Vital Signs / I&O: Vital Signs 08/19/17 11:21 08/19/17 11:30 08/19/17 11:42 Temperature 99.3 F Pulse Rate 63 54 L Respiratory Rate 21 15 Blood Pressure 187/83 H 131/60 Pulse Oximetry 99 95 08/19/17 12:15 08/19/17 13:15 08/19/17 14:15 Temperature Pulse Rate 53 L 50 L 52 L Respiratory Rate 17 17 18 Blood Pressure 99/55 L 128/59 L 101/52 L Pulse Oximetry 99 99 100 08/19/17 15:15 08/19/17 16:15 08/19/17 17:15 Temperature Pulse Rate 46 L 108 H 50 L Respiratory Rate 17 17 15 Blood Pressure 115/63 108/58 L 126/4 L Pulse Oximetry 99 08/19/17 17:36 08/19/17 17:49 08/19/17 18:00 Temperature 97.8 F Pulse Rate 54 L 41 L 58 L Respiratory Rate 16 19 Blood Pressure 109/54 L 129/67 127/60 Pulse Oximetry 99 96 08/19/17 18:18 08/19/17 18:30 08/19/17 18:46 Temperature Pulse Rate 54 L 56 L 50 L Respiratory Rate 18 19 19 Blood Pressure 103/58 L 126/60 Pulse Oximetry 96 100 98 08/19/17 19:00 08/19/17 19:15 08/19/17 19:31 Temperature Pulse Rate 61 66 69 Respiratory Rate 20 19 18 Blood Pressure 120/81 116/58 L 137/86 Pulse Oximetry 96 100 99 08/19/17 20:00 08/19/17 20:15 08/19/17 20:31 Temperature 98.4 F Pulse Rate 74 72 80 Respiratory Rate 19 18 18 Blood Pressure 124/79 123/79 135/80 Pulse Oximetry 100 99 99 08/19/17 21:00 08/19/17 21:11 08/19/17 21:16 Temperature Pulse Rate 69 78 80 Respiratory Rate 15 19 19 Blood Pressure 123/76 120/63 Pulse Oximetry 96 97 97 08/19/17 21:30 08/19/17 21:35 08/19/17 21:45 Temperature Pulse Rate 79 0 L Respiratory Rate 16 21 Blood Pressure 124/55 L 95/60 L Pulse Oximetry 99 98 92 L 08/19/17 22:00 08/19/17 22:01 08/19/17 22:15 Temperature Pulse Rate 51 L 49 L 75 Respiratory Rate 18 18 19 Blood Pressure 173/83 H 122/65 Pulse Oximetry 100 100 96 08/19/17 22:25 08/19/17 22:30 08/19/17 22:52 Temperature Pulse Rate 258 H 100 H 57 L Respiratory Rate 29 H 26 H Blood Pressure 114/65 90/52 L Pulse Oximetry 89 L 100 08/19/17 23:00 08/19/17 23:15 08/19/17 23:18 Temperature Pulse Rate 52 L 48 L 48 L Respiratory Rate 21 23 19 Blood Pressure 85/58 L 84/49 L 71/48 L Pulse Oximetry 100 98 83 L 08/19/17 23:20 08/19/17 23:30 08/19/17 23:45 Temperature Pulse Rate 49 L 49 L 47 L Respiratory Rate 20 19 18 Blood Pressure 102/59 L 102/60 104/55 L Pulse Oximetry 92 L 89 L 99 08/20/17 00:00 08/20/17 00:16 08/20/17 00:30 Temperature 98.2 F Pulse Rate 48 L 53 L 49 L Respiratory Rate 18 15 17 Blood Pressure 83/54 L 119/62 124/59 L Pulse Oximetry 94 L 98 98 08/20/17 00:40 08/20/17 00:46 08/20/17 01:00 Temperature Pulse Rate 48 L 48 L 47 L Respiratory Rate 16 15 Blood Pressure 101/62 Pulse Oximetry 93 L 99 08/20/17 01:16 08/20/17 01:31 08/20/17 01:45 Temperature Pulse Rate 45 L 47 L 45 L Respiratory Rate 17 17 17 Blood Pressure 99/54 L 94/59 L 92/55 L Pulse Oximetry 100 100 100 08/20/17 02:00 08/20/17 02:16 08/20/17 02:30 Temperature Pulse Rate 45 L 46 L 44 L Respiratory Rate 17 17 17 Blood Pressure 86/58 L 100/62 91/59 L Pulse Oximetry 100 100 100 08/20/17 02:45 08/20/17 03:00 08/20/17 03:15 Temperature Pulse Rate 46 L 50 L 53 L Respiratory Rate 18 14 17 Blood Pressure 110/62 106/65 111/63 Pulse Oximetry 100 99 100 08/20/17 03:30 08/20/17 03:46 08/20/17 04:00 Temperature 97.8 F Pulse Rate 51 L 45 L 47 L Respiratory Rate 17 17 17 Blood Pressure 129/58 L 98/55 L 103/59 L Pulse Oximetry 97 100 100 08/20/17 04:15 08/20/17 04:30 08/20/17 04:47 Temperature Pulse Rate 44 L 54 L 71 Respiratory Rate 18 18 16 Blood Pressure 106/56 L 105/56 L 128/61 Pulse Oximetry 100 100 100 08/20/17 05:00 08/20/17 05:01 08/20/17 05:15 Temperature Pulse Rate 76 78 75 Respiratory Rate 19 20 19 Blood Pressure 113/61 125/59 L Pulse Oximetry 85 L 84 L 84 L 08/20/17 05:30 08/20/17 05:45 08/20/17 06:00 Temperature Pulse Rate 74 77 68 Respiratory Rate 17 17 15 Blood Pressure 120/67 126/80 Pulse Oximetry 93 L 70 L 100 08/20/17 06:01 08/20/17 06:16 08/20/17 06:45 Temperature Pulse Rate 78 74 74 Respiratory Rate 16 18 17 Blood Pressure 115/66 96/59 L 119/77 Pulse Oximetry 96 99 97 08/20/17 07:00 08/20/17 07:01 08/20/17 07:16 Temperature Pulse Rate 85 70 64 Respiratory Rate 18 17 18 Blood Pressure 98/69 L 108/83 Pulse Oximetry 95 93 L 95 Intake & Output 08/19/17 08/20/17 08/20/17 18:59 06:59 18:59 Intake Total 800 / 800 Balance 800 / 800 Weight 77.111 kg Intake: IV 800 / 800 Cordarone Inj 450 MG In D5W Inj 500 / 500 241 ML @ 1 MG/MIN 33.33 mls/hr IV.CONT .Q7H31M [facility] Rx#: [id number] Cordarone Inj 150 MG In D5W Inj 100 / 100 97 ML @ 100 mls/hr IV.SIG ONCE ONE Rx#:[id number] Magnesium Sulfate 1 gm/D5W 100 200 / 200 ml Premix 100 ML @ 100 mls/hr IV.SIG Q1H [facility] Rx#:[id number] Result Diagrams: 08/19/17 11:45 08/20/17 05:27 Imaging: ITS Impressions Chest X-Ray 08/19/17 11:35 CONCLUSION: Minimal parenchymal changes left base suspicious for inflammatory process. Mild compensated cardiomegaly Objective Remarks: GENERAL: 82-year-old male currently resting in bed on nasal cannula in no acute distress SKIN: Warm and dry. No DTIs HEAD: Atraumatic. Normocephalic. EYES: Pupils equal and round. No scleral icterus. No injection or drainage. ENT: No nasal bleeding or discharge. Mucous membranes pink and moist. NECK: Trachea midline. No JVD. CARDIOVASCULAR: Irregularly irregular. S1, S2 predose repair without murmur. RESPIRATORY: No accessory muscle use. Clear to auscultation. Breath sounds equal bilaterally. GASTROINTESTINAL: Abdomen soft, non-tender, nondistended. Hepatic and splenic margins not palpable. Peritoneal catheters placed and clean dry and intact MUSCULOSKELETAL: Extremities with trace upper lower extremity. Chronic venous stasis bilateral lower extremities. NEUROLOGICAL: Cranial nerves II through XII appear to be grossly intact. Strength grossly equal and symmetric bilaterally.. Normal sensation Assessment and Plan - Assessment and Plan Plan: NEURO/PSYCH: Altered mental status History of bilateral occipital/left cerebellar CVA Major depressive disorder NOS Glaucoma Seizure disorder NOS Acetaminophen 650 mg a mouth every 6 hours as needed pain 1 through 10/fever Morphine sulfate 2 mg IV every 4 hours as needed breakthrough pain Continue travoprost 0.004% 1 drop each eye at night Holding mirtazapine 15 mg at night/home medication for depression. Resume when/ if clinically indicated Currently off levetiracetam 250 mg by mouth daily according to patient. Medicine reconciliation incomplete -Encephalopathy and syncope most likely related to sustained ventricular tachycardia -No further CVA or TIA workup needed at this time RESP: -Nasal cannula oxygen to maintain saturations greater than equal 92% Incentive spirometry while awake -Albuterol/ipratropium aerosols every 6 hours while awake with albuterol aerosols every 2 hours as needed for dyspnea Chest x-ray admission revealed lower lobe infiltrates/effusion. Noted history of large left pleural effusion the past requiring thoracentesis -Aggressive pulmonary toilet CV: Sustained ventricular tachycardia Sinus bradycardia History of atrial fibrillation Elevated troponin 0.[address] Leong plan for AICD this afternoon -Amiodarone 150 mg bolus followed by infusion per protocol. Received 2 additional 150 mg boluses since admission. Currently on a milligram per minute of amiodarone. Lidocaine drip if remains in symptomatic V. tach Continue aspirin 81 mg daily and clopidogrel 75 mg daily -Monitor QTC frequently with the EKG -Avoid beta-blockers due to bradycardia 2D echocardiogram 02/26 revealed mild concentric left ventricular hypertrophy. The left ventricular systolic function is normal with an estimated ejection fraction in the range of 55-60%. Mild TR. The estimated pulmonary arterial pressure is 40 mmHg. 2D echocardiogram ordered 08/20 Continue atorvastatin 80 mg at night. Holding Midodrine 10 mg twice daily GI: Hypoalbuminemia Low total protein Peptic ulcer disease -N.p.o. until clinically stable -Pantoprazole 20 mg by mouth daily - Holding propantiene 50 mg daily for PUD Docusate sodium/senna 1 tablet twice daily for bowel regimen RENAL/FEN/: End-stage renal disease on peritoneal hemodialysis Hypermagnesia Renal osteodystrophy His regimen consists of 11 hours, 6 cycles, 2500 ml fill volume, no last fill. We will use 1.5% solution. -Patient states he has entertainer & comic is Dr. Osman Long -Consult on-call entertainer & comic as Dr. Long is not available at [place] Dr. Salcedo following Receiving 30 mEq potassium chloride 1 now. Recheck magnesium and potassium at 1800 today and in a.m. Continue calcitriol 0.25 daily ID: History of C. difficile -Monitor closely for infection HEME: Normocytic anemia -Monitor CBC, CMP, coags ENDO: Sliding scale insulin with Accu-Cheks to maintain euglycemia/aspart every 6 hours low regimen TSH ordered MSK: PT evaluate and treat PROPH: -Bilateral lower extremity SCDs. Heparin subcu, IV famotidine LINES: -Utilize peripheral IVs, central line if needed Level 2 follow-up
[2017-08-20] MEDS ORDERED: Dextrose 50% in Water 50 ML Vial IV.PUSH PRN (09:16)
[2017-08-20] MEDS: CALCITRIOL PO SCH (10:31)
[2017-08-20] MEDS ORDERED: Lidocaine 2% 100 MG/5 ML Syringe IV.PUSH ONE (11:00)
[2017-08-20] MEDS ORDERED: Lidocaine/D5W 2000 mg/500 mL 2,000 MG/500 ML BAG IV.CONT SCH (11:00)
[2017-08-20] MEDS ORDERED: Lidocaine PF 1% Inj 5 ML Syringe INFILTRATN ONE (12:00)
[2017-08-20] MEDS: Sod Chloride 0.9% Inj 1,000 ML IV.CONT SCH ×2 (12:15→12:26)
[2017-08-20] MEDS: Insulin NovoLOG Aspart Correctional Sugar Inj SQ SCH ×2 (12:17→18:34)
[2017-08-20] MEDS ORDERED: Vancomycin Inj 1,000 MG in Sodium Chlor 0.9% Inj 250 ML IV.SIG SCH (12:30)
[2017-08-20] MEDS ORDERED: ceFAZolin 2 GM Premix Inj 2 GM/50 ML PIGGYBACK IV.SIG SCH (12:30)
--- NOTE | 2017-08-20 13:17 | ECG ---
Date Performed: 08/19/2017 Time Performed: 11:27:48 PTAGE: 82 years EKG: Sinus rhythm NONSPECIFIC ST & T-WAVE ABNORMALITY BORDERLINE ECG Since the PREVIOUS TRACING , no significant change noted PREVIOUS TRACING 05/21/2017 DOCTOR: Gregory Aguilar Interpretating Date/Time 08/20/2017 13:15:04
[2017-08-20] MEDS ORDERED: Mag Sulf 1 gm/100 ml Premix 100 ML IV.SIG ONE ×2 (14:19→22:27)
[2017-08-20] MEDS ORDERED: Acetaminophen 325 MG Tablet PO PRN (15:48)
--- NOTE | 2017-08-20 16:07 | MP ---
cc: Luis Leong MD, Alan S MD DATE OF OPERATION: 08/20/2017 PROCEDURE: 1. Somewhat difficult dual-chamber AICD implantation via the left subclavian vein. 2. AICD defibrillation threshold testing. INDICATIONS: Secondary prevention of sudden cardiac . OPERATIVE NOTES: The patient was brought to the operating suite in a fasting state after having signed informed consent. Even prior to starting the case, the patient was having sustained runs of ventricular tachycardia necessitating shock therapy. He was given a 70 mg intravenous bolus of lidocaine and the IV amiodarone stopped with complete resolution of his ventricular arrhythmias. The left upper chest was prepped and draped as per policy and anesthetized with 1% lidocaine. A transverse incision was made inferior to the left clavicle and, using blunt dissection, a subcutaneous pocket was formed down to the pectoralis fascia. After administration of 15 mL of contrast through a left arm peripheral IV, central venous access was obtained twice via the left subclavian vein without difficulty using modified Seldinger technique. Over the more lateral guidewire, an 8-[place] sheath was placed and through this sheath, a ventricular active fixation lead was introduced and the tip positioned in the right ventricular apex where a good current of injury, stimulation threshold (0.6 volts) and sensitivity (13.2 millivolts) were demonstrated. This lead was secured into place using 2-0 silk ties down to the pectoralis fascia. Over the remaining guidewire, a 7-[place] sheath was placed and through this sheath, an atrial active fixation lead was introduced. We had to reposition this lead multiple times as sensing was suboptimal. It was finally placed in a somewhat more lateral position where good current of injury, stimulation threshold (0.5 volts) and the best achievable sensitivity (0.5 millivolts) were demonstrated. This lead was secured into place using 2-0 silk ties down to the pectoralis fascia. The leads were then connected to the AICD generator, which is a [employer] device. The leads and the generator were placed back into the subcutaneous pocket, which was closed using 3-0 Vicryl interrupted stitches in 3 layers to close the subcutaneous tissue and then 4-0 Monocryl running stitch to close the subcuticular tissue. Overlapping Steri-Strips and a pressure dressing were applied. Testing of the device was also performed. Ventricular fibrillation was induced. The patient was successfully rescued with a 20 joule shock after a charge time of 4 seconds at a shock impedance of 52 ohms. There were no apparent, immediate complications. A portable chest x-ray is pending at the time of this dictation. CONCLUSIONS: 1. Status post dual chamber automated implantable cardioverter defibrillator implantation via the left subclavian vein using a upad Iperia automated implantable cardioverter defibrillator generator. 2. Status post automatic implantable cardioverter-defibrillator defibrillation threshold testing. MD MEHUL Villalobos/YADIEL , 03:43 PM , 04:05 PM MTDTonia
--- NOTE | 2017-08-20 16:48 | XR ---
EXAM DATE: 08/20/2017 4:32 PM EDT AGE/SEX: 82 years / Male INDICATIONS: Post pacemaker. CLINICAL DATA: This is the patient's initial encounter. Patient reports that signs and symptoms have been present for 1 day and indicates a pain score of Nonresponsive. MEDICAL/SURGICAL HISTORY: . Cardiovascular disease. Chronic obstructive pulmonary disease. Hype rtension. Coronary artery stent. Pacemaker. COMPARISON: [facility] – [place], CHEST 1V SINGLE AP, 08/19/2017. . FINDINGS: There is a bilead pacing/AICD device in place. The leads appear well placed. A pneumothorax is not se en. The heart size is normal. There is increased density at the left medial base. CONCLUSION: Pacing/AICD device in place from the left subclavian approach. Left medial base atelectasis or consolidation. Electronically signed by: Joe Hernandez MD 08/20/2017 4:47 PM EDT
--- NOTE | 2017-08-20 17:00 | ECHRPT ---
Indication: CORONARY ATHEROSCLEROSIS CONCLUSIONS Normal left ventricular size. Wall thickness is measured at the upper limits of normal. The left ventricular systolic function is kmsyucha-sp-uyvpczv reduced with an estimated ejection fra ction in the range of 35-40%. No atrial level shunt is demonstrated by color flow Doppler interrogation. Mild mitral annular calcification. Mild mitral valve regurgitation. Aortic valve sclerosis is present. Trace aortic valve regurgitation. There is mild tricuspid valve regurgitation. The estimated pulmonary arterial pressure is 38.7 mmHg. The pulmonary valve is not well visualized. The inferior vena cava was not well visualized. BP: / HR: Rhythm: Sinus MEASUREMENTS (Male / Female) Normal Values Technical Quality:Fair 2D ECHO LV Diastolic Diameter PLAX 4.2 cm 4.2 - 5.9 / 3.9 - 5.3 cm LV Systolic Diameter PLAX 3.1 cm IVS Diastolic Thickness 1.0 cm 0.6 - 1.0 / 0.6 - 0.9 cm LVPW Diastolic Thickness 1.0 cm 0.6 - 1.0 / 0.6 - 0.9 cm LV Relative Wall Thickness 0.5 RV Internal Dim ED PLAX 2.7 cm LVOT Diameter 1.6 cm Aortic Root Diameter 3.3 cm LA Systolic Diameter LX 3.4 cm 3.0 - 4.0 / 2.7 - 3.8 cm M-MODE AV Cusp Separation MM 1.6 cm DOPPLER AV Peak Velocity 131.0 cm/s AV Peak Gradient 6.9 mmHg AV Mean Gradient 4.0 mmHg AV Velocity Time Integral 23.7 cm LVOT Peak Velocity 77.5 cm/s LVOT Peak Gradient 2.4 mmHg LVOT Velocity Time Integral 17.6 cm AV Area Cont Eq vti 1.5 cm AV Area Cont Eq pk 1.2 cm Mitral E Point Velocity 71.1 cm/s Mitral A Point Velocity 89.8 cm/s Mitral E to A Ratio 0.8 LV E' Lateral Velocity 5.6 cm/s Mitral E to LV E' Lateral Ratio 12.8 LV E' Septal Velocity 4.9 cm/s Mitral E to LV E' Septal Ratio 14.6 TR Peak Velocity 268.0 cm/s TR Peak Gradient 28.7 mmHg Right Atrial Pressure 10.0 mmHg Pulmonary Artery Systolic Pressu 38.7 mmHg Right Ventricular Systolic Press 38.7 mmHg PV Peak Velocity 45.9 cm/s PV Peak Gradient 0.8 mmHg FINDINGS LEFT VENTRICLE Normal left ventricular size. Wall thickness is measured at the upper limits of normal. The left ventricular systolic function is mcbakwrq-ji-capdznc reduced with an estimated ejection fra ction in the range of 35-40%. RIGHT VENTRICLE Normal right ventricular size and systolic function. LEFT ATRIUM The left atrial size is normal. RIGHT ATRIUM The right atrial size is normal. ATRIAL SEPTUM No atrial level shunt is demonstrated by color flow Doppler interrogation. AORTA The aortic root and proximal ascending aorta are normal in size on limited imaging. MITRAL VALVE Mild mitral annular calcification. Mild mitral valve regurgitation. AORTIC VALVE Aortic valve sclerosis is present. Trace aortic valve regurgitation. TRICUSPID VALVE There is mild tricuspid valve regurgitation. The estimated pulmonary arterial pressure is 38.7 mmHg. PULMONARY VALVE The pulmonary valve is not well visualized. VESSELS The inferior vena cava was not well visualized. PERICARDIUM No pericardial effusion. Aleksey Muro MD, FACC (Electronically Signed) Final Date:20 August 2017 16:59
[2017-08-20 18:25] LABS: Magnesium 3.2 mg/dL (1.5-2.5)
[2017-08-20] MEDS: Latanoprost 0.005% Opth Drops 2.5 ML Bottle EACH EYE SCH (21:00)
[2017-08-20] MEDS ORDERED: Midazolam Inj 5 MG/ML 1 ML Vial ONE (22:27)
[2017-08-20 23:18] LABS: Baso # (Auto) 0.1 th/mm3 (0.0-0.2); Baso % (Auto) 0.5 % (0.0-2.0); Eos # (Auto) 0.2 th/mm3 (0.0-0.4); Eos % (Auto) 1.8 % (0.0-4.0); Hematocrit 28.8 % (39.0-51.0); Lymph # (Auto) 1.2 th/mm3 (1.0-4.8); Lymph % (Auto) 11.7 % (9.0-44.0); Mean Corpuscular HGB Conc 34.8 % (32.0-36.0); Mean Corpuscular Hemoglobin 34.6 pg (27.0-34.0); Mean Corpuscular Volume 99.5 fL (80.0-100.0); Mean Platelet Volume 8.1 fL (7.0-11.0); Mono # (Auto) 1.2 th/mm3 (0.0-0.9); Mono % (Auto) 11.6 % (0.0-8.0); Neut # (Auto) 7.5 th/mm3 (1.8-7.7); Neut % (Auto) 74.4 % (16.0-70.0); Platelet Count 192 th/mm3 (150-450); Red Cell Distribution Width 14.2 % (11.6-17.2); White Blood Count 10.1 th/mm3 (4.0-11.0)
[2017-08-20 23:21] LABS: Alanine Aminotransferase 20 U/L (12-78); Albumin 2.6 g/dL (3.4-5.0); Alkaline Phosphatase 47 U/L (45-117); Anion Gap 12 meq/L (5-15); Aspartate Aminotransferase 22 U/L (15-37); Blood Urea Nitrogen 32 mg/dL (7-18); Calcium 8.5 mg/dL (8.5-10.1); Carbon Dioxide 24.7 meq/L (21.0-32.0); Chloride 99 meq/L (98-107); Glomerular Filtration Rate 8 mL/min (>89); Glucose,Random 120 mg/dL (74-106); Magnesium 3.7 mg/dL (1.5-2.5); Potassium 3.6 meq/L (3.5-5.1); Sodium 136 meq/L (136-145); Total Protein 6.2 g/dL (6.4-8.2)
--- NOTE | 2017-08-20 23:40 | P.PNADD ---
Addendum to Inpatient Note Reason for Addendum: Additional Documentation Additional information: Initial Rhythm: Ventricular tachycardia Description of Code: Medical team television repairman responded to overhead code blue page. CPR was initiated and conducted as per ACLS protocol. Total duration of CPR: Approximately 15 minutes Drugs: Magnesium Amiodarone drip Versed Intubation: Bag mask ventilation performed by anesthesia team Lines Placed: None Result of Code: ROSC Primary attending notified: Yes, Dr. Louis at bedside to resume care Labs ordered: None
[2017-08-21] MEDS ORDERED: Magnesium Sulfate Inj 40 MEQ/10 ML Vial IV.SIG ONE (05:00)
[2017-08-21 06:00] LABS: Baso % (Auto) 0.4 % (0.0-2.0); Eos # (Auto) 0.1 th/mm3 (0.0-0.4); Eos % (Auto) 1.9 % (0.0-4.0); Hematocrit 24.5 % (39.0-51.0); Hemoglobin 8.4 gm/dL (13.0-17.0); Lymph # (Auto) 0.7 th/mm3 (1.0-4.8); Lymph % (Auto) 9.8 % (9.0-44.0); Mean Corpuscular HGB Conc 34.3 % (32.0-36.0); Mean Corpuscular Hemoglobin 33.7 pg (27.0-34.0); Mono # (Auto) 0.9 th/mm3 (0.0-0.9); Mono % (Auto) 11.4 % (0.0-8.0); Neut # (Auto) 5.8 th/mm3 (1.8-7.7); Neut % (Auto) 76.5 % (16.0-70.0); Platelet Count 176 th/mm3 (150-450); Red Cell Distribution Width 14.2 % (11.6-17.2); White Blood Count 7.6 th/mm3 (4.0-11.0)
[2017-08-21 06:16] LABS: Alanine Aminotransferase 16 U/L (12-78); Albumin 2.4 g/dL (3.4-5.0); Anion Gap 13 meq/L (5-15); Aspartate Aminotransferase 27 U/L (15-37); Blood Urea Nitrogen 30 mg/dL (7-18); Calcium 8.6 mg/dL (8.5-10.1); Carbon Dioxide 25.4 meq/L (21.0-32.0); Chloride 99 meq/L (98-107); Cholesterol 100 mg/dL (120-200); Glomerular Filtration Rate 8 mL/min (>89); Glucose,Random 114 mg/dL (74-106); Magnesium 3.5 mg/dL (1.5-2.5); Potassium 3.5 meq/L (3.5-5.1); Sodium 137 meq/L (136-145); Triglycerides 96 mg/dL (42-150)
[2017-08-21 06:19] LABS: Alkaline Phosphatase 46 U/L (45-117); Chol/HDL Ratio 3.03 Ratio; LDL Cholesterol,Calculated 48 mg/dL (0-99); Total Protein 5.8 g/dL (6.4-8.2)
[2017-08-21 06:37] LABS: Troponin I 2.03 ng/mL (0.02-0.05)
--- NOTE | 2017-08-21 06:48 | CATHPROC ---
[employer] HIS Report Study Information Study Number Admission Scheduled Start Study Start [id number] Aug 19 2017 1:22PM 08/20/2017 Aug 20 2017 1:38PM [facility] Cardiac Catheterization Admit Source Facility Department Emergency department [facility] - [facility] Physician and Clinical Staff Initial Luis Tavares Renal Case Managergabriella Sanchez RN, Guille Sanchez Anesthesia, CUSTOMER RELATIONS CONSULTANT Recorder Roberto Reardon RCIS(BS) Lilly Martin RCIS TECH2 Procedures Performed Procedure Location (Site) Vessel Name Lead Insertion Venogram Subclav. Vein (Lft Subclavian Vein Equipment Time Senior Software Engineer Analytics Description Size Mfg Part Number Used/Scraped DEFIBRILLATOR, IPERIA 7 DR-T 15:16 BIOTRONIK VDE-DDDR [id number] Used PROMRI 14:40 BIOTRONIK LEAD, PLEXA PRO-MRI SD [id number] Used 14:47 BIOTRONIK LEAD, SOLIA 60 53 PRO MRI * [id number] Used RealMatch 14:51 [employer] ANN, HEMOSTAT 1 GRAM Used *[id number] 14:32 [employer] SAFE SHEATH, FR7, 13CM FR 7 CLS-1007 Used 14:32 [employer] SAFE SHEATH, FR7, 13CM FR 7 CLS-1007 Used 14:32 [employer] SAFE SHEATH, FR8, 13CM FR 8 CLS-1008 Used 14:04 Needle Sponge Count 2 22 Used 14:04 Needle Sponge Count 25 1 Used 14:04 Needle Sponge Count 4 4 Used 14:37 [employer]COMED OMNIPAQUE, 350 MG, 50ML 50ML [id number] Used Equipment Model, Serial, Lot Number and Expiration Data Description Model Number Serial Number Lot Number Expiration Date DEFIBRILLATOR, IPERIA 7 DR-T [id number] 11-08-2018 PROMRI LEAD, PLEXA PRO-MRI SD 6518 [id number] 06-08-2018 LEAD, SOLIA 60 53 PRO MRI [id number] 05-10-2019 History: Allergies Allergy Reaction No Known Allergies History: Risk Factors Family History of Hypertension Dyslipidemia Previous PA Previous Heart Failure Premature CAD Yes Yes No No Yes Prior Valve Prior PCI Prior CABG Surgery No No No Cerebrovascular Peripheral Artery Chronic Lung On Dialysis Diabetes Disease Disease Disease Yes Yes No Yes No History: Other Current Smoker No Labs Hgb (g/dl) Hct (%) WBC (l/cumm) Platelets (thousands) 11.60-17.00 35.00-51.00 4.00-11.00 150.00-450.00 9.7 28.3 9.7 203 Glucose (mg/dl) BUN (mg/dl) Creatinine (mg/dl) BUN:Creatinine (1:x) 74.00-106.00 7.00-18.00 0.50-1.30 10.00-20.00 95 34 7.4 4.6 Na (meq/l) K (meq/l) 136.00-145.00 3.50-5.10 138 3.8 INR (PTT:PT) 0.90-1.10 1.1 CPK-MB (ng/ML) 0.50-3.60 Not Drawn Medication Medication Total Dose (Bolus/Oral) Medication Total Dosage/Unit 2% XYLOCAINE 50 mL Medications (Bolus/Oral) Medication Time Given Dosage/Unit Administered By Reason 2% XYLOCAINE 08/20/2017 2:33:14 PM 50 mL Luis Leong 50 mL 2% XYLOCAINE given in lab by Luis Leong in Left shoulder via Subcutaneous. Ordered by Luis Leong. Medication (Drip) Medication Time Given Dosage/Unit Concentration/Unit Diluent (ml) Solution ANCEF 08/20/2017 2:07:38 PM 2 g 2 g ANCEF given in lab by ALISHA Malagon in Right Antecubital via Peripheral IV. Ordered by Luis Leong. IV Solutions 08/20/2017 1:38:59 PM 0 mL (IV) 500 NaCl .9 Patient arrived on IV Solutions given by Guille Sanchez RN in Right Antecubital via Peripheral IV. Pump /Drip Flow = 20 ml/hr using NaCl .9. Ordered by Luis Leong. VANCOMYCIN DRIP 08/20/2017 2:30:30 PM 1 g 1 g VANCOMYCIN DRIP given in lab by ALISHA Malagon in Right Antecubital via Peripheral IV. Ordered by Luis Leong. Chronological Log Time Study Chronological Log 13:30:00 Patient arrived via Bed. 13:30:00 Patient Name, D.O.B, / Armband Verified By R.N. 13:30:00 Consent signed by the physician and the patient and verified by the [facility] staff. 13:30:01 Anesthesia at bedside. Assumes care of patient. See CUSTOMER RELATIONS CONSULTANT flow sheet for assesment, vitals , and medications. 13:38:44 Patient has been NPO for More than 6Hrs. 13:38:44 Skin Breakdown- none per patient 13:38:54 Patient Warmer Placed on the Table. 13:38:55 Disposable Defibrillator Pads Placed On Patient. 13:38:57 Kennedi Prominences Protected 13:38:58 A # 20 IV was noted in the Forearm (left). Grade = 0 13:38:58 A # 20 IV was noted in the Antecubital (right). Grade = 0 Patient arrived on IV Solutions given by Guille Sanchez RN in Right Antecubital via Peripheral IV. Pump/Drip Flow = 20 13:38:59 ml/hr using NaCl .9. Ordered by Luis Leong. 13:39:01 History and physical on the chart or being dictated. 13:39:05 Bovie ground pad applied to: right thigh 13:39:11 2% CHLORHEXIDINE GLUCONATE WASH AND NASAL SWIPE DONE PRIOR TO PROCEDURE. 13:50:17 Reference ECG taken 13:55:52 Ventricular Tachycardia noted. Converted with Valsava. 14:00:27 Ventricular Tachycardia noted. Converted with Valsava. 14:01:55 Left arm and shoulder prepped with iodine solution, and draped after with a 3 min. waitin g time. First Sponge And Instrument Count Done by Lilly Dubois, CARDROOM SUPERVISOR TECH2. 14:03:32 Hypo's: 4, Sponges: 25, Bovie/scratch: 2 Sutures: 6, Blades: 3, Instruments: 26, Syveck Patches: ~SYVECK PATCH~ 14:07:30 Ventricular Tachycardia noted. Converted with Valsava. 14:07:38 2 g ANCEF given in lab by Anesthesia, CUSTOMER RELATIONS CONSULTANT in Right Antecubital via Peripheral IV. Ordere d by Luis Leong. 14:12:06 paged 14:14:24 MD responded 14:15:00 Ventricular Tachycardia noted. 14:15:43 Patient defibrillated at 200 joules. The ECG rhythm was noted as VT. 14:17:02 Ventricular Tachycardia noted. 14:17:25 Patient defibrillated at 200 joules. The ECG rhythm was noted as VT. 14:23:04 MD arrived. 1 g VANCOMYCIN DRIP given in lab by Anesthesia, CUSTOMER RELATIONS CONSULTANT in Right Antecubital via Peripheral IV. Or dered by Dang 14:30:30 Luis. Time Out. Correct patient, procedure, procedure equipment, site and side verified with physicia n present. Time 14:32:47 concurred by MD, individual staff and CUSTOMER RELATIONS CONSULTANT. Time Out #2 - Consents verified, patient in correct position, all results are labled and displa yed, safety precautions 14:32:48 taken, antibiotics administered. Time out concurred by MD, individual staff and CUSTOMER RELATIONS CONSULTANT in procedu re 14:33:13 Case Start 14:33:14 50 mL 2% XYLOCAINE given in lab by Luis Leong in Left shoulder via Subcutaneous. Ordered by Luis Leong. 14:36:20 The Subclav. Vein (Lft was manually injected with 10 cc's of contrast. OMNIPAQUE, 350 MG, 5 0ML 50ML used. 14:37:44 Surgical Incision Made. 14:38:39 Vascular access was obtained in the Subclav. Vein (Lft. 14:39:51 Vascular access was obtained in the Subclav. Vein (Lft. 14:39:56 A SAFE SHEATH, FR8, 13CM FR 8 was advanced into the Fem Vein (right) using the Percutaneous technique. 14:40:13 A LEAD, PLEXA PRO-MRI SD 65/18 was inserted and positioned in the RV. 14:42:42 Lead placement verified under fluoroscopy 14:42:58 The RV lead impedance and threshold being tested. 14:44:09 The RV lead was sutured to the fascia. 14:47:08 A SAFE SHEATH, FR7, 13CM FR 7 was advanced into the Fem Vein (right) using the Percutaneous technique. 14:47:15 A LEAD, SOLIA 60 53 PRO MRI * was inserted and positioned in the RA. 14:50:21 The Atrial lead impedance and threshold is being tested. 14:52:00 Repositioning the lead 14:54:09 The Atrial lead impedance and threshold is being tested. 14:58:02 Repositioning the lead 15:00:11 The Atrial lead impedance and threshold is being tested. 15:08:42 Repositioning the lead 15:10:49 The Atrial lead impedance and threshold is being tested. 15:15:03 The Atrial lead was sutured to the fascia. 15:15:35 A DEFIBRILLATOR, IPERIA 7 DR-T PROMRI VDE-DDDR was connected and placed in the pocket. 15:17:56 Ann powder being placed in pocket for hemostasis 15:20:41 The DFT was Success at 20 Joules, 52 Ohms lead impedance and 400 ms charge time. Second Sponge And Instrument Count Done by Luis Leong. 15:21:30 Hypo's: 4, Sponges: 25, Bovie/scratch: 2 Sutures: ~SUTURE~, Blades: 3, Instruments: 26, Syveck Patches: ~SYVECK PATCH~ 15:22:00 The pocket was closed. 15:36:19 Case End (Physician broke scrub) The Final Sponge And Instrument Count Done by Luis Leong. 15:36:21 Hypo's: 4, Sponges: 25, Bovie/scratch: 2 Sutures: 7, Blades: 3, Instruments: 26, Syveck Patches: ~SYVECK PATCH~ 15:41:48 Sterile dressing applied to site 15:41:49 No case complications noted. 15:41:50 Cine recording checked. 15:41:52 Implantable Device card placed in patient's chart. 15:41:53 Bedside Report will be given. 15:42:07 A sling was placed on the affected arm. End Study - Contrast Media Used In Study Contrast Total Opened (mL) Total Used (mL) Total Wasted (mL) Unspecified 0 0 0 End Study - Maximum Contrast Load Max Contrast Load (mL) 52.0 End Study - Radiation Exposure Fluoro Time (minutes) 9.4 End Study - Patient Disposition Complications Transferred To Interventional Outcome No Critical Care Bed No attempt made
[2017-08-21] MEDS: Insulin NovoLOG Aspart Correctional Sugar Inj SQ SCH ×4 (07:26→17:25)
[2017-08-21] MEDS: Chlorhexidine Gluconate 2% 1 Pack (2 Cloths) TOPICAL SCH (07:28)
[2017-08-21] MEDS ORDERED: Lidocaine/D5W 2000 mg/500 mL 2,000 MG/500 ML BAG ONE (07:53)
[2017-08-21] MEDS ORDERED: Lidocaine 2% 100 MG/5 ML Syringe ONE (07:53)
--- NOTE | 2017-08-21 08:18 | P.PNCA ---
Subjective Interval history: Denies angina, dyspnea, dizziness, palpitations, nausea. Physical Exam Vital signs: Vital Signs 08/20/17 08:16 08/20/17 08:31 08/20/17 08:45 Temperature Pulse Rate 71 47 L 53 L Respiratory Rate 22 20 22 Blood Pressure 130/78 106/59 L 110/61 Pulse Oximetry 95 97 81 L 08/20/17 09:00 08/20/17 09:01 08/20/17 09:15 Temperature Pulse Rate 62 63 62 Respiratory Rate 19 20 19 Blood Pressure 109/55 L 115/65 Pulse Oximetry 82 L 89 L 100 08/20/17 09:30 08/20/17 09:45 08/20/17 10:00 Temperature Pulse Rate 56 L 60 66 Respiratory Rate 18 18 16 Blood Pressure 92/56 L 111/59 L 119/61 Pulse Oximetry 89 L 100 100 08/20/17 10:15 08/20/17 10:30 08/20/17 10:45 Temperature Pulse Rate 60 61 60 Respiratory Rate 18 18 18 Blood Pressure 113/57 L 102/52 L 96/51 L Pulse Oximetry 100 100 100 08/20/17 11:00 08/20/17 11:01 08/20/17 11:15 Temperature Pulse Rate 63 64 50 L Respiratory Rate 19 19 20 Blood Pressure 129/68 116/57 L Pulse Oximetry 98 100 100 08/20/17 11:31 08/20/17 11:43 08/20/17 11:44 Temperature Pulse Rate 56 L 53 L 49 L Respiratory Rate 20 20 21 Blood Pressure 109/57 L 122/56 L 116/57 L Pulse Oximetry 99 97 98 08/20/17 11:46 08/20/17 12:00 08/20/17 12:15 Temperature Pulse Rate 48 L 47 L 45 L Respiratory Rate 21 18 19 Blood Pressure 105/60 109/59 L 95/60 L Pulse Oximetry 96 96 93 L 08/20/17 12:30 08/20/17 12:45 08/20/17 13:00 Temperature 96.9 F L Pulse Rate 47 L 47 L 49 L Respiratory Rate 18 19 19 Blood Pressure 105/58 L 114/58 L 113/55 L Pulse Oximetry 91 L 98 92 L 08/20/17 13:15 08/20/17 16:14 08/20/17 16:20 Temperature 97.8 F Pulse Rate 62 60 60 Respiratory Rate 20 18 18 Blood Pressure 126/62 122/58 L 110/54 L Pulse Oximetry 93 L 100 100 08/20/17 16:30 08/20/17 16:37 08/20/17 16:38 Temperature Pulse Rate 60 60 60 Respiratory Rate 18 18 Blood Pressure 121/62 109/57 L Pulse Oximetry 100 92 L 08/20/17 16:45 08/20/17 17:00 08/20/17 17:15 Temperature 97 F L Pulse Rate 60 60 60 Respiratory Rate 18 17 17 Blood Pressure 115/64 119/63 123/61 Pulse Oximetry 90 L 100 100 08/20/17 17:30 08/20/17 17:45 08/20/17 18:00 Temperature Pulse Rate 60 60 60 Respiratory Rate 17 17 17 Blood Pressure 127/67 125/66 120/65 Pulse Oximetry 100 98 100 08/20/17 18:15 08/20/17 18:31 08/20/17 18:45 Temperature Pulse Rate 60 60 60 Respiratory Rate 17 19 15 Blood Pressure 127/58 L 118/64 122/70 Pulse Oximetry 100 100 97 08/20/17 19:00 08/20/17 19:01 08/20/17 19:16 Temperature Pulse Rate 60 60 60 Respiratory Rate 18 21 17 Blood Pressure 105/68 129/63 Pulse Oximetry 99 98 86 L 08/20/17 19:30 08/20/17 19:45 08/20/17 19:53 Temperature Pulse Rate 60 60 Respiratory Rate 18 17 Blood Pressure 124/61 121/63 Pulse Oximetry 94 L 99 100 08/20/17 20:00 08/20/17 20:15 08/20/17 20:30 Temperature 97.9 F Pulse Rate 60 60 60 Respiratory Rate 8 L 16 15 Blood Pressure 112/60 118/68 125/77 Pulse Oximetry 99 99 99 08/20/17 20:45 08/20/17 21:00 08/20/17 21:15 Temperature Pulse Rate 59 L 60 59 L Respiratory Rate 14 16 18 Blood Pressure 129/64 125/68 110/60 Pulse Oximetry 98 98 80 L 08/20/17 21:30 08/20/17 21:45 08/20/17 22:00 Temperature Pulse Rate 59 L 59 L 59 L Respiratory Rate 19 25 H 17 Blood Pressure 117/65 116/65 111/57 L Pulse Oximetry 80 L 100 70 L 08/20/17 22:15 08/20/17 22:30 08/20/17 22:31 Temperature Pulse Rate 59 L 62 Respiratory Rate 16 24 Blood Pressure 125/63 152/71 H Pulse Oximetry 76 L 100 100 08/20/17 22:36 08/20/17 22:37 08/20/17 22:45 Temperature Pulse Rate 60 60 60 Respiratory Rate 21 21 19 Blood Pressure 133/62 131/64 91/50 L Pulse Oximetry 100 100 99 08/20/17 23:00 08/20/17 23:15 08/20/17 23:30 Temperature Pulse Rate 60 60 60 Respiratory Rate 18 19 34 H Blood Pressure 106/57 L 104/60 105/59 L Pulse Oximetry 100 100 100 08/20/17 23:45 08/21/17 00:00 08/21/17 00:15 Temperature 98.5 F Pulse Rate 60 60 60 Respiratory Rate 20 50 H 17 Blood Pressure 100/56 L 111/67 120/59 L Pulse Oximetry 95 98 100 08/21/17 00:30 08/21/17 00:45 08/21/17 01:00 Temperature Pulse Rate 60 60 60 Respiratory Rate 17 18 18 Blood Pressure 115/58 L 116/58 L 118/61 Pulse Oximetry 100 100 100 08/21/17 01:15 08/21/17 01:30 08/21/17 01:45 Temperature Pulse Rate 60 60 60 Respiratory Rate 17 18 18 Blood Pressure 108/59 L 108/60 121/67 Pulse Oximetry 86 L 100 100 08/21/17 02:00 08/21/17 02:15 08/21/17 02:30 Temperature Pulse Rate 60 60 60 Respiratory Rate 17 17 15 Blood Pressure 117/63 111/59 L 117/64 Pulse Oximetry 95 94 L 96 08/21/17 02:45 08/21/17 03:00 08/21/17 03:15 Temperature Pulse Rate 60 60 60 Respiratory Rate 17 17 28 H Blood Pressure 115/58 L 113/60 117/58 L Pulse Oximetry 95 96 96 08/21/17 03:30 08/21/17 03:45 08/21/17 04:00 Temperature 98.8 F Pulse Rate 60 60 60 Respiratory Rate 16 16 11 L Blood Pressure 115/59 L 115/60 115/63 Pulse Oximetry 99 100 99 08/21/17 04:15 08/21/17 04:30 08/21/17 04:45 Temperature Pulse Rate 60 60 60 Respiratory Rate 16 18 17 Blood Pressure 118/63 116/63 124/59 L Pulse Oximetry 99 97 81 L 08/21/17 05:00 08/21/17 05:15 08/21/17 05:30 Temperature Pulse Rate 60 60 60 Respiratory Rate 25 H 16 19 Blood Pressure 132/58 L 117/54 L 118/65 Pulse Oximetry 95 08/21/17 05:45 08/21/17 06:00 08/21/17 06:15 Temperature Pulse Rate 60 60 60 Respiratory Rate 18 18 17 Blood Pressure 119/65 112/64 114/65 Pulse Oximetry 77 L 99 97 08/21/17 06:30 08/21/17 06:45 08/21/17 07:00 Temperature Pulse Rate 60 60 60 Respiratory Rate 19 18 19 Blood Pressure 104/56 L 109/57 L 109/58 L Pulse Oximetry 97 98 98 08/21/17 07:15 Temperature Pulse Rate 60 Respiratory Rate 16 Blood Pressure 113/58 L Pulse Oximetry 97 Intake & Output 08/20/17 08/21/17 08/21/17 18:59 06:59 18:59 Intake Total 453 / 453 971 / 971 Output Total 1013 / 1013 Balance 453 / 453 971 / 971 -1013 / -1013 Weight 72.5 kg Intake: IV 453 / 453 731 / 731 Cordarone Inj 450 MG In D5W Inj 250 / 250 250 / 250 241 ML @ 1 MG/MIN 33.33 mls/hr IV.CONT .Q7H31M [facility] Rx#: [id number] Lidocaine/D5W 2000 mg/500 mL 278 / 278 Premix Inj 2,000 mg In 500 ml @ 1 MG/MIN 15 mls/hr IV.CONT . Q24H [facility] Rx#:[id number] Cordarone Inj 150 MG In D5W Inj 103 / 103 103 / 103 100 ML @ 600 mls/hr IV.SIG ONCE ONE Rx#:[id number] Magnesium Sulfate 1 gm/D5W 100 100 / 100 ml Premix 100 ML @ 0 mls/hr IV. SIG .STK-MED ONE Rx#:[id number] KCl 10 mEq Premix Inj 10 meq In 100 / 100 100 ml @ 100 mls/hr IV.SIG ONCE ONE Rx#:[id number] Oral 240 / 240 Output: Peritoneal Amount 1013 / 1013 Other: # Voids 1 # Bowel Movements 0 - Routine Neck Exam Absent: JVD - Routine Respiratory Exam Present: CTA bilaterally - Routine Cardiovascular Exam Present: RRR, S1, S2. Absent: murmur, S3 Comments: ICD site clean, dry, intact, nontender. No hematoma. - Routine Abdominal Exam Present: soft, normoactive bowel sounds. Absent: tenderness, organomegaly - Routine Extremities Exam Absent: cyanosis, clubbing, edema Assessment and Plan - Assessment (1) Sustained ventricular tachycardia Code(s): I47.2 - Ventricular tachycardia Status: Deleted Plan: Continued hemodynamically compromising wide complex tachyarrhythmias overnight responsive to ICD shock therapy. ICD pacing/defibrillatory parameters stable, acceptable. Now back on IV Amiodarone and IV lidocaine. Echo reviewed, agree EF 35-40%, which is different from reportedly normal EF on echo at [facility] last week. ? has myocarditis REC agree with consulting Dr. Brennan, consider oral Mexilitene/Amiodarone combination, start low dose beta mikala (2) Coronary artery disease Code(s): I25.10 - Atherosclerotic heart disease of [place] coronary artery without angina pectoris Status: Chronic Plan: Stable CAD status. No recent angina. Continue Plavix, aspirin. (3) Paroxysmal atrial fibrillation Code(s): I48.0 - Paroxysmal atrial fibrillation Status: Acute Plan: Not well documented history of atrial fibrillation. Can track any future atrial fibrillation via ICD transmissions. Continue daily aspirin. Likely to remain on Amiodarone post discharge as well. (4) Cardiomyopathy Code(s): I42.9 - Cardiomyopathy, unspecified Status: Acute Plan: Echo this admission reviewed, agree EF reduced to ~35-40% with global hypokinesis. EF on echo last week reportedly normal? Will review [facility] echo. Try to start low dose carvedilol. No SHAUNNA-I or ARB with CRI. - Plan Code Status: full code Discussed Condition With: patient (2) Coronary artery disease Qualifiers: Coronary Disease-Associated Artery/Lesion type: [place] artery [place] vs. transplanted heart: [place] heart Associated angina: without angina Qualified Code(s): I25.10 - Atherosclerotic heart disease of [place] coronary artery without angina pectoris (4) Cardiomyopathy Qualifiers: Cardiomyopathy type: unspecified Qualified Code(s): I42.9 - Cardiomyopathy, unspecified
[2017-08-21] MEDS ORDERED: Potassium Phos/Sodium Phos 250 MG Tablet PO ONE (08:28)
[2017-08-21] MEDS ORDERED: Pantoprazole Sodium 20 MG DR Tablet PO SCH (09:00)
[2017-08-21] MEDS: Heparin - SQ 10,000 UNITS/ML Vial SQ SCH ×2 (09:02→20:28)
[2017-08-21] MEDS: Senna/Docusate Sodium 8.6/50 MG Tablet PO SCH ×2 (09:02→20:29)
[2017-08-21] MEDS: CALCITRIOL PO SCH (09:03)
--- NOTE | 2017-08-21 09:37 | P.PNNP ---
Subjective Interval history: Sitting up in bed, awake and alert. at bedside. Per RN, the patient had multiple runs of VT overnight and AICD fired multiple times. Pt does not recall events. On Amiodarone and lidocaine gtts. <Jania Gallagher - Last Filed: 08/21/17 09:33> Physical Exam Vital signs: Vital Signs 08/20/17 09:45 08/20/17 10:00 08/20/17 10:15 Temperature Pulse Rate 60 66 60 Respiratory Rate 18 16 18 Blood Pressure 111/59 L 119/61 113/57 L Pulse Oximetry 100 100 100 08/20/17 10:30 08/20/17 10:45 08/20/17 11:00 Temperature Pulse Rate 61 60 63 Respiratory Rate 18 18 19 Blood Pressure 102/52 L 96/51 L Pulse Oximetry 100 100 98 08/20/17 11:01 08/20/17 11:15 08/20/17 11:31 Temperature Pulse Rate 64 50 L 56 L Respiratory Rate 19 20 20 Blood Pressure 129/68 116/57 L 109/57 L Pulse Oximetry 100 100 99 08/20/17 11:43 08/20/17 11:44 08/20/17 11:46 Temperature Pulse Rate 53 L 49 L 48 L Respiratory Rate 20 21 21 Blood Pressure 122/56 L 116/57 L 105/60 Pulse Oximetry 97 98 96 08/20/17 12:00 08/20/17 12:15 08/20/17 12:30 Temperature 96.9 F L Pulse Rate 47 L 45 L 47 L Respiratory Rate 18 19 18 Blood Pressure 109/59 L 95/60 L 105/58 L Pulse Oximetry 96 93 L 91 L 08/20/17 12:45 08/20/17 13:00 08/20/17 13:15 Temperature Pulse Rate 47 L 49 L 62 Respiratory Rate 19 19 20 Blood Pressure 114/58 L 113/55 L 126/62 Pulse Oximetry 98 92 L 93 L 08/20/17 16:14 08/20/17 16:20 08/20/17 16:30 Temperature 97.8 F Pulse Rate 60 60 60 Respiratory Rate 18 18 18 Blood Pressure 122/58 L 110/54 L 121/62 Pulse Oximetry 100 100 100 08/20/17 16:37 08/20/17 16:38 08/20/17 16:45 Temperature 97 F L Pulse Rate 60 60 60 Respiratory Rate 18 18 Blood Pressure 109/57 L 115/64 Pulse Oximetry 92 L 90 L 08/20/17 17:00 08/20/17 17:15 08/20/17 17:30 Temperature Pulse Rate 60 60 60 Respiratory Rate 17 17 17 Blood Pressure 119/63 123/61 127/67 Pulse Oximetry 100 100 100 08/20/17 17:45 08/20/17 18:00 08/20/17 18:15 Temperature Pulse Rate 60 60 60 Respiratory Rate 17 17 17 Blood Pressure 125/66 120/65 127/58 L Pulse Oximetry 98 100 100 08/20/17 18:31 08/20/17 18:45 08/20/17 19:00 Temperature Pulse Rate 60 60 60 Respiratory Rate 19 15 18 Blood Pressure 118/64 122/70 Pulse Oximetry 100 97 99 08/20/17 19:01 08/20/17 19:16 08/20/17 19:30 Temperature Pulse Rate 60 60 60 Respiratory Rate 21 17 18 Blood Pressure 105/68 129/63 124/61 Pulse Oximetry 98 86 L 94 L 08/20/17 19:45 08/20/17 19:53 08/20/17 20:00 Temperature 97.9 F Pulse Rate 60 60 Respiratory Rate 17 8 L Blood Pressure 121/63 112/60 Pulse Oximetry 99 100 99 08/20/17 20:15 08/20/17 20:30 08/20/17 20:45 Temperature Pulse Rate 60 60 59 L Respiratory Rate 16 15 14 Blood Pressure 118/68 125/77 129/64 Pulse Oximetry 99 99 98 08/20/17 21:00 08/20/17 21:15 08/20/17 21:30 Temperature Pulse Rate 60 59 L 59 L Respiratory Rate 16 18 19 Blood Pressure 125/68 110/60 117/65 Pulse Oximetry 98 80 L 80 L 08/20/17 21:45 08/20/17 22:00 08/20/17 22:15 Temperature Pulse Rate 59 L 59 L 59 L Respiratory Rate 25 H 17 16 Blood Pressure 116/65 111/57 L 125/63 Pulse Oximetry 100 70 L 76 L 08/20/17 22:30 08/20/17 22:31 08/20/17 22:36 Temperature Pulse Rate 62 60 Respiratory Rate 24 21 Blood Pressure 152/71 H 133/62 Pulse Oximetry 100 100 100 08/20/17 22:37 08/20/17 22:45 08/20/17 23:00 Temperature Pulse Rate 60 60 60 Respiratory Rate 21 19 18 Blood Pressure 131/64 91/50 L 106/57 L Pulse Oximetry 100 99 100 08/20/17 23:15 08/20/17 23:30 08/20/17 23:45 Temperature Pulse Rate 60 60 60 Respiratory Rate 19 34 H 20 Blood Pressure 104/60 105/59 L 100/56 L Pulse Oximetry 100 100 95 08/21/17 00:00 08/21/17 00:15 08/21/17 00:30 Temperature 98.5 F Pulse Rate 60 60 60 Respiratory Rate 50 H 17 17 Blood Pressure 111/67 120/59 L 115/58 L Pulse Oximetry 98 100 100 08/21/17 00:45 08/21/17 01:00 08/21/17 01:15 Temperature Pulse Rate 60 60 60 Respiratory Rate 18 18 17 Blood Pressure 116/58 L 118/61 108/59 L Pulse Oximetry 100 100 86 L 08/21/17 01:30 08/21/17 01:45 08/21/17 02:00 Temperature Pulse Rate 60 60 60 Respiratory Rate 18 18 17 Blood Pressure 108/60 121/67 117/63 Pulse Oximetry 100 100 95 08/21/17 02:15 08/21/17 02:30 08/21/17 02:45 Temperature Pulse Rate 60 60 60 Respiratory Rate 17 15 17 Blood Pressure 111/59 L 117/64 115/58 L Pulse Oximetry 94 L 96 95 08/21/17 03:00 08/21/17 03:15 08/21/17 03:30 Temperature Pulse Rate 60 60 60 Respiratory Rate 17 28 H 16 Blood Pressure 113/60 117/58 L 115/59 L Pulse Oximetry 96 96 99 08/21/17 03:45 08/21/17 04:00 08/21/17 04:15 Temperature 98.8 F Pulse Rate 60 60 60 Respiratory Rate 16 11 L 16 Blood Pressure 115/60 115/63 118/63 Pulse Oximetry 100 99 99 08/21/17 04:30 08/21/17 04:45 08/21/17 05:00 Temperature Pulse Rate 60 60 60 Respiratory Rate 18 17 25 H Blood Pressure 116/63 124/59 L 132/58 L Pulse Oximetry 97 81 L 95 08/21/17 05:15 08/21/17 05:30 08/21/17 05:45 Temperature Pulse Rate 60 60 60 Respiratory Rate 16 19 18 Blood Pressure 117/54 L 118/65 119/65 Pulse Oximetry 77 L 08/21/17 06:00 08/21/17 06:15 08/21/17 06:30 Temperature Pulse Rate 60 60 60 Respiratory Rate 18 17 19 Blood Pressure 112/64 114/65 104/56 L Pulse Oximetry 99 97 97 08/21/17 06:45 08/21/17 07:00 08/21/17 07:15 Temperature Pulse Rate 60 60 60 Respiratory Rate 18 18 16 Blood Pressure 109/57 L 109/58 L 113/58 L Pulse Oximetry 98 98 97 08/21/17 07:30 08/21/17 07:45 08/21/17 08:00 Temperature 97.7 F Pulse Rate 59 L 59 L 60 Respiratory Rate 17 19 17 Blood Pressure 116/61 106/55 L 106/57 L Pulse Oximetry 97 96 96 08/21/17 08:15 Temperature Pulse Rate 60 Respiratory Rate 18 Blood Pressure 110/61 Pulse Oximetry 98 Intake & Output 08/20/17 08/21/17 08/21/17 18:59 06:59 18:59 Intake Total 453 / 453 971 / 971 Output Total 1013 / 1013 Balance 453 / 453 971 / 971 -1013 / -1013 Weight 72.5 kg Intake: IV 453 / 453 731 / 731 Cordarone Inj 450 MG In D5W Inj 250 / 250 250 / 250 241 ML @ 1 MG/MIN 33.33 mls/hr IV.CONT .Q7H31M [facility] Rx#: [id number] Lidocaine/D5W 2000 mg/500 mL 278 / 278 Premix Inj 2,000 mg In 500 ml @ 1 MG/MIN 15 mls/hr IV.CONT . Q24H [facility] Rx#:[id number] Cordarone Inj 150 MG In D5W Inj 103 / 103 103 / 103 100 ML @ 600 mls/hr IV.SIG ONCE ONE Rx#:[id number] Magnesium Sulfate 1 gm/D5W 100 100 / 100 ml Premix 100 ML @ 0 mls/hr IV. SIG .STK-MED ONE Rx#:[id number] KCl 10 mEq Premix Inj 10 meq In 100 / 100 100 ml @ 100 mls/hr IV.SIG ONCE ONE Rx#:[id number] Oral 240 / 240 Output: Peritoneal Amount 1013 / 1013 Other: # Voids 1 # Bowel Movements 0 - Constitutional no acute distress, chronically ill appearing - Routine HEENT Exam Head: Present: normocephalic ENT: Present: mucous membranes moist - Routine Neck Exam Present: supple, full ROM. Absent: JVD - Routine Respiratory Exam Present: CTA bilaterally. Absent: accessory muscle use - Routine Cardiovascular Exam Present: S1, S2, irregular rhythm, irregularly irregular. Absent: S3, S4, JVD - Routine Abdominal Exam Present: soft, normoactive bowel sounds - Routine Extremities Exam Absent: cyanosis, edema - Routine Skin Exam Present: warm, lesions, scars, wounds, cracked Comments: to lower extremities - Routine Neurological Exam Present: alert, normal speech <Jania Gallagher - Last Filed: 08/21/17 09:33> Vital signs: Vital Signs 08/20/17 16:14 08/20/17 16:20 08/20/17 16:30 Temperature 97.8 F Pulse Rate 60 60 60 Respiratory Rate 18 18 18 Blood Pressure 122/58 L 110/54 L 121/62 Pulse Oximetry 100 100 100 08/20/17 16:37 08/20/17 16:38 08/20/17 16:45 Temperature 97 F L Pulse Rate 60 60 60 Respiratory Rate 18 18 Blood Pressure 109/57 L 115/64 Pulse Oximetry 92 L 90 L 08/20/17 17:00 08/20/17 17:15 08/20/17 17:30 Temperature Pulse Rate 60 60 60 Respiratory Rate 17 17 17 Blood Pressure 119/63 123/61 127/67 Pulse Oximetry 100 100 100 08/20/17 17:45 08/20/17 18:00 08/20/17 18:15 Temperature Pulse Rate 60 60 60 Respiratory Rate 17 17 17 Blood Pressure 125/66 120/65 127/58 L Pulse Oximetry 98 100 100 08/20/17 18:31 08/20/17 18:45 08/20/17 19:00 Temperature Pulse Rate 60 60 60 Respiratory Rate 19 15 18 Blood Pressure 118/64 122/70 Pulse Oximetry 100 97 99 08/20/17 19:01 08/20/17 19:16 08/20/17 19:30 Temperature Pulse Rate 60 60 60 Respiratory Rate 21 17 18 Blood Pressure 105/68 129/63 124/61 Pulse Oximetry 98 86 L 94 L 08/20/17 19:45 08/20/17 19:53 08/20/17 20:00 Temperature 97.9 F Pulse Rate 60 60 Respiratory Rate 17 8 L Blood Pressure 121/63 112/60 Pulse Oximetry 99 100 99 08/20/17 20:15 08/20/17 20:30 08/20/17 20:45 Temperature Pulse Rate 60 60 59 L Respiratory Rate 16 15 14 Blood Pressure 118/68 125/77 129/64 Pulse Oximetry 99 99 98 08/20/17 21:00 08/20/17 21:15 08/20/17 21:30 Temperature Pulse Rate 60 59 L 59 L Respiratory Rate 16 18 19 Blood Pressure 125/68 110/60 117/65 Pulse Oximetry 98 80 L 80 L 08/20/17 21:45 08/20/17 22:00 08/20/17 22:15 Temperature Pulse Rate 59 L 59 L 59 L Respiratory Rate 25 H 17 16 Blood Pressure 116/65 111/57 L 125/63 Pulse Oximetry 100 70 L 76 L 08/20/17 22:30 08/20/17 22:31 08/20/17 22:36 Temperature Pulse Rate 62 60 Respiratory Rate 24 21 Blood Pressure 152/71 H 133/62 Pulse Oximetry 100 100 100 08/20/17 22:37 08/20/17 22:45 08/20/17 23:00 Temperature Pulse Rate 60 60 60 Respiratory Rate 21 19 18 Blood Pressure 131/64 91/50 L 106/57 L Pulse Oximetry 100 99 100 08/20/17 23:15 08/20/17 23:30 08/20/17 23:45 Temperature Pulse Rate 60 60 60 Respiratory Rate 19 34 H 20 Blood Pressure 104/60 105/59 L 100/56 L Pulse Oximetry 100 100 95 08/21/17 00:00 08/21/17 00:15 08/21/17 00:30 Temperature 98.5 F Pulse Rate 60 60 60 Respiratory Rate 50 H 17 17 Blood Pressure 111/67 120/59 L 115/58 L Pulse Oximetry 98 100 100 08/21/17 00:45 08/21/17 01:00 08/21/17 01:15 Temperature Pulse Rate 60 60 60 Respiratory Rate 18 18 17 Blood Pressure 116/58 L 118/61 108/59 L Pulse Oximetry 100 100 86 L 08/21/17 01:30 08/21/17 01:45 08/21/17 02:00 Temperature Pulse Rate 60 60 60 Respiratory Rate 18 18 17 Blood Pressure 108/60 121/67 117/63 Pulse Oximetry 100 100 95 08/21/17 02:15 08/21/17 02:30 08/21/17 02:45 Temperature Pulse Rate 60 60 60 Respiratory Rate 17 15 17 Blood Pressure 111/59 L 117/64 115/58 L Pulse Oximetry 94 L 96 95 08/21/17 03:00 08/21/17 03:15 08/21/17 03:30 Temperature Pulse Rate 60 60 60 Respiratory Rate 17 28 H 16 Blood Pressure 113/60 117/58 L 115/59 L Pulse Oximetry 96 96 99 08/21/17 03:45 08/21/17 04:00 08/21/17 04:15 Temperature 98.8 F Pulse Rate 60 60 60 Respiratory Rate 16 11 L 16 Blood Pressure 115/60 115/63 118/63 Pulse Oximetry 100 99 99 08/21/17 04:30 08/21/17 04:45 08/21/17 05:00 Temperature Pulse Rate 60 60 60 Respiratory Rate 18 17 25 H Blood Pressure 116/63 124/59 L 132/58 L Pulse Oximetry 97 81 L 95 08/21/17 05:15 08/21/17 05:30 08/21/17 05:45 Temperature Pulse Rate 60 60 60 Respiratory Rate 16 19 18 Blood Pressure 117/54 L 118/65 119/65 Pulse Oximetry 77 L 08/21/17 06:00 08/21/17 06:15 08/21/17 06:30 Temperature Pulse Rate 60 60 60 Respiratory Rate 18 17 19 Blood Pressure 112/64 114/65 104/56 L Pulse Oximetry 99 97 97 08/21/17 06:45 08/21/17 07:00 08/21/17 07:15 Temperature Pulse Rate 60 60 60 Respiratory Rate 18 18 16 Blood Pressure 109/57 L 109/58 L 113/58 L Pulse Oximetry 98 98 97 08/21/17 07:30 08/21/17 07:45 08/21/17 08:00 Temperature 97.7 F Pulse Rate 59 L 59 L 60 Respiratory Rate 17 19 17 Blood Pressure 116/61 106/55 L 106/57 L Pulse Oximetry 97 96 96 08/21/17 08:15 08/21/17 08:30 08/21/17 08:45 Temperature Pulse Rate 60 60 60 Respiratory Rate 18 16 16 Blood Pressure 110/61 117/58 L 111/59 L Pulse Oximetry 98 97 99 08/21/17 09:00 08/21/17 09:15 08/21/17 09:30 Temperature Pulse Rate 60 60 60 Respiratory Rate 16 17 17 Blood Pressure 112/59 L 126/64 122/58 L Pulse Oximetry 99 97 98 08/21/17 09:45 08/21/17 10:00 08/21/17 10:15 Temperature Pulse Rate 60 60 60 Respiratory Rate 15 17 19 Blood Pressure 120/61 120/62 114/59 L Pulse Oximetry 95 93 L 99 08/21/17 10:30 08/21/17 10:45 08/21/17 11:00 Temperature Pulse Rate 60 60 60 Respiratory Rate 20 17 18 Blood Pressure 113/58 L 111/56 L 106/58 L Pulse Oximetry 99 97 97 08/21/17 11:15 08/21/17 11:30 08/21/17 11:45 Temperature Pulse Rate 60 60 60 Respiratory Rate 16 17 20 Blood Pressure 99/58 L 99/58 L 100/58 L Pulse Oximetry 96 97 97 08/21/17 12:00 08/21/17 12:15 08/21/17 12:30 Temperature Pulse Rate 60 60 60 Respiratory Rate 16 17 17 Blood Pressure 110/57 L 108/59 L 106/57 L Pulse Oximetry 96 97 98 08/21/17 12:45 08/21/17 13:00 08/21/17 13:15 Temperature Pulse Rate 60 60 60 Respiratory Rate 17 18 15 Blood Pressure 102/50 L 95/55 L 101/52 L Pulse Oximetry 98 97 100 08/21/17 13:30 Temperature Pulse Rate 60 Respiratory Rate 16 Blood Pressure 102/56 L Pulse Oximetry 100 Intake & Output 08/20/17 08/21/17 08/21/17 18:59 06:59 18:59 Intake Total 453 / 453 971 / 971 175 / 175 Output Total 1013 / 1013 Balance 453 / 453 971 / 971 -838 / -838 Weight 72.5 kg Intake: IV 453 / 453 731 / 731 175 / 175 Lidocaine/D5W 2000 mg/500 mL 175 / 175 Premix Inj 2,000 mg In 500 ml @ 0 mls/hr .ROUTE .STK-MED ONE Rx#:[id number] Cordarone Inj 450 MG In D5W Inj 250 / 250 250 / 250 241 ML @ 1 MG/MIN 33.33 mls/hr IV.CONT .Q7H31M [facility] Rx#: [id number] Lidocaine/D5W 2000 mg/500 mL 278 / 278 Premix Inj 2,000 mg In 500 ml @ 1 MG/MIN 15 mls/hr IV.CONT . Q24H [facility] Rx#:[id number] Cordarone Inj 150 MG In D5W Inj 103 / 103 103 / 103 100 ML @ 600 mls/hr IV.SIG ONCE ONE Rx#:[id number] Magnesium Sulfate 1 gm/D5W 100 100 / 100 ml Premix 100 ML @ 0 mls/hr IV. SIG .STK-MED ONE Rx#:[id number] KCl 10 mEq Premix Inj 10 meq In 100 / 100 100 ml @ 100 mls/hr IV.SIG ONCE ONE Rx#:[id number] Oral 240 / 240 Output: Peritoneal Amount 1013 / 1013 Other: # Voids 1 # Bowel Movements 0 <Gabriel Salcedo - Last Filed: 08/21/17 14:11> Assessment and Plan - Assessment (1) End stage renal disease Code(s): N18.6 - End stage renal disease Status: Deleted Plan: Continue nightly PD. His regimen consists of 11 hours, 6 cycles, 2500 ml fill volume, no last fill. We will use 1.5% solution. UF was acceptable. Monitor fluid status and electrolytes intermittently. Replace phosphorus PO, not on binders currently. Avoid excess IVF administration. Gadolinium in contraindicated. Midodrine if needed for hypotension. Dose medications appropriate to renal status. (2) Cardiac syncope Code(s): R55 - Syncope and collapse Status: Deleted Plan: Seen by cardiology. s/p AICD placement. On Amiodarone and lidocaine. Dr. Brennan to be consulted. (3) Anemia associated with chronic renal failure Code(s): D63.1 - Anemia in chronic kidney disease Status: Acute Plan: No evidence of iron deficiency. Was given Epogen on Thursday. Monitor. (4) History of CVA (cerebrovascular accident) Code(s): Z86.73 - Personal history of transient ischemic attack (TIA), and cerebral infarction without residual deficits Status: Deleted Plan: On Plavix. Needs assistance with ADLs. <Jania Gallagher - Last Filed: 08/21/17 09:33> - Assessment (1) End stage renal disease Code(s): N18.6 - End stage renal disease Status: Deleted (2) Cardiac syncope Code(s): R55 - Syncope and collapse Status: Deleted (3) Anemia associated with chronic renal failure Code(s): D63.1 - Anemia in chronic kidney disease Status: Acute (4) History of CVA (cerebrovascular accident) Code(s): Z86.73 - Personal history of transient ischemic attack (TIA), and cerebral infarction without residual deficits Status: Deleted - Attending Attestation patient was seen and examined. Agree with above assessment and plan. Start daily oral potassium. <Gabriel Salcedo - Last Filed: 08/21/17 14:11>
--- NOTE | 2017-08-21 10:18 | P.PNCC ---
Subjective Subjective Remarks/Hospital Course: Patient is an 82-year-old male with a past medical history of hypertension, obstructive sleep apnea, COPD, history of CVA, end-stage renal disease on peritoneal dialysis who was recently admitted to [facility] from 05/21/17 to for respiratory failure. He was brought into the emergency department today for multiple episodes of syncope. EMS strips showed several episodes of nonsustained V. tach. In the emergency department patient had a single episode of sustained V. tach, up to 54 seconds, with loss of consciousness. Pads were placed for emergency defibrillation however prior to defibrillation patient regained sinus rhythm and consciousness. Patient was given 150 mg amiodarone bolus IV, followed by amiodarone infusion. Dr. Leong from cardiology was consulted. I evaluated the patient in the emergency department. Patient is lying in bed denies chest pain. He has sinus bradycardia. I reviewed the EMS EKG strips, and the EKG done in the ED. He has sinus bradycardia, and prolonged QT interval. I discussed with Dr. Leong, we will continue amiodarone as this time as the patient responded to amiodarone. Patient will need serial cardiac enzymes, 2D echo, evaluate for AICD placement. Home medications of Midrin and propantheline will be held due to arrhythmias. Dr. Leong will evaluate for AICD placement Subjective 08/20: Overnight, 3 minute long episodes of V. tach with intermittent loss of conscious. CPR initiated with chest compressions 3 minutes. Defibrillator with 200 J. Rebolus with amiodarone 150 mg at 1040. Patient still intermittently in V. tach/bradycardic rhythm. Rebolus with 150 mg of amiodarone and currently on amiodarone drip at 1 mg/min. Lidocaine will be the next choice. Currently resting in bed and appears comfortable despite the ongoing unstable rhythm 08/21 Patient went into Vtach/vfib overnight AICD fired x 4 started now on Amio and Lidocaine drips. Afebrile. Awake and alert. Objective Vital Signs / I&O: Vital Signs 08/20/17 10:15 08/20/17 10:30 08/20/17 10:45 Temperature Pulse Rate 60 61 60 Respiratory Rate 18 Blood Pressure 113/57 L 102/52 L 96/51 L Pulse Oximetry 100 100 100 08/20/17 11:00 08/20/17 11:01 08/20/17 11:15 Temperature Pulse Rate 63 64 50 L Respiratory Rate 19 19 20 Blood Pressure 129/68 116/57 L Pulse Oximetry 98 100 100 08/20/17 11:31 08/20/17 11:43 08/20/17 11:44 Temperature Pulse Rate 56 L 53 L 49 L Respiratory Rate 20 20 21 Blood Pressure 109/57 L 122/56 L 116/57 L Pulse Oximetry 99 97 98 08/20/17 11:46 08/20/17 12:00 08/20/17 12:15 Temperature Pulse Rate 48 L 47 L 45 L Respiratory Rate 21 18 19 Blood Pressure 105/60 109/59 L 95/60 L Pulse Oximetry 96 96 93 L 08/20/17 12:30 08/20/17 12:45 08/20/17 13:00 Temperature 96.9 F L Pulse Rate 47 L 47 L 49 L Respiratory Rate 18 19 19 Blood Pressure 105/58 L 114/58 L 113/55 L Pulse Oximetry 91 L 98 92 L 08/20/17 13:15 08/20/17 16:14 08/20/17 16:20 Temperature 97.8 F Pulse Rate 62 60 60 Respiratory Rate 20 18 18 Blood Pressure 126/62 122/58 L 110/54 L Pulse Oximetry 93 L 100 100 08/20/17 16:30 08/20/17 16:37 08/20/17 16:38 Temperature Pulse Rate 60 60 60 Respiratory Rate 18 18 Blood Pressure 121/62 109/57 L Pulse Oximetry 100 92 L 08/20/17 16:45 08/20/17 17:00 08/20/17 17:15 Temperature 97 F L Pulse Rate 60 60 60 Respiratory Rate 18 17 17 Blood Pressure 115/64 119/63 123/61 Pulse Oximetry 90 L 100 100 08/20/17 17:30 08/20/17 17:45 08/20/17 18:00 Temperature Pulse Rate 60 60 60 Respiratory Rate 17 17 17 Blood Pressure 127/67 125/66 120/65 Pulse Oximetry 100 98 100 08/20/17 18:15 08/20/17 18:31 08/20/17 18:45 Temperature Pulse Rate 60 60 60 Respiratory Rate 17 19 15 Blood Pressure 127/58 L 118/64 122/70 Pulse Oximetry 100 100 97 08/20/17 19:00 07/12/18 19:01 08/20/17 19:16 Temperature Pulse Rate 60 60 60 Respiratory Rate 18 21 17 Blood Pressure 105/68 129/63 Pulse Oximetry 99 98 86 L 08/20/17 19:30 08/20/17 19:45 08/20/17 19:53 Temperature Pulse Rate 60 60 Respiratory Rate 18 17 Blood Pressure 124/61 121/63 Pulse Oximetry 94 L 99 100 08/20/17 20:00 08/20/17 20:15 08/20/17 20:30 Temperature 97.9 F Pulse Rate 60 60 60 Respiratory Rate 8 L 16 15 Blood Pressure 112/60 118/68 125/77 Pulse Oximetry 99 99 99 08/20/17 20:45 08/20/17 21:00 08/20/17 21:15 Temperature Pulse Rate 59 L 60 59 L Respiratory Rate 14 16 18 Blood Pressure 129/64 125/68 110/60 Pulse Oximetry 98 98 80 L 08/20/17 21:30 08/20/17 21:45 08/20/17 22:00 Temperature Pulse Rate 59 L 59 L 59 L Respiratory Rate 19 25 H 17 Blood Pressure 117/65 116/65 111/57 L Pulse Oximetry 80 L 100 70 L 08/20/17 22:15 08/20/17 22:30 08/20/17 22:31 Temperature Pulse Rate 59 L 62 Respiratory Rate 16 24 Blood Pressure 125/63 152/71 H Pulse Oximetry 76 L 100 100 08/20/17 22:36 08/20/17 22:37 08/20/17 22:45 Temperature Pulse Rate 60 60 60 Respiratory Rate 21 21 19 Blood Pressure 133/62 131/64 91/50 L Pulse Oximetry 100 100 99 08/20/17 23:00 08/20/17 23:15 08/20/17 23:30 Temperature Pulse Rate 60 60 60 Respiratory Rate 18 19 34 H Blood Pressure 106/57 L 104/60 105/59 L Pulse Oximetry 100 100 100 08/20/17 23:45 08/21/17 00:00 08/21/17 00:15 Temperature 98.5 F Pulse Rate 60 60 60 Respiratory Rate 20 50 H 17 Blood Pressure 100/56 L 111/67 120/59 L Pulse Oximetry 95 98 100 08/21/17 00:30 08/21/17 00:45 08/21/17 01:00 Temperature Pulse Rate 60 60 60 Respiratory Rate 17 18 18 Blood Pressure 115/58 L 116/58 L 118/61 Pulse Oximetry 100 100 100 08/21/17 01:15 08/21/17 01:30 08/21/17 01:45 Temperature Pulse Rate 60 60 60 Respiratory Rate 17 18 18 Blood Pressure 108/59 L 108/60 121/67 Pulse Oximetry 86 L 100 100 08/21/17 02:00 08/21/17 02:15 08/21/17 02:30 Temperature Pulse Rate 60 60 60 Respiratory Rate 17 17 15 Blood Pressure 117/63 111/59 L 117/64 Pulse Oximetry 95 94 L 96 08/21/17 02:45 08/21/17 03:00 08/21/17 03:15 Temperature Pulse Rate 60 60 60 Respiratory Rate 17 17 28 H Blood Pressure 115/58 L 113/60 117/58 L Pulse Oximetry 95 96 96 08/21/17 03:30 08/21/17 03:45 08/21/17 04:00 Temperature 98.8 F Pulse Rate 60 60 60 Respiratory Rate 16 16 11 L Blood Pressure 115/59 L 115/60 115/63 Pulse Oximetry 99 100 99 08/21/17 04:15 08/21/17 04:30 08/21/17 04:45 Temperature Pulse Rate 60 60 60 Respiratory Rate 16 18 17 Blood Pressure 118/63 116/63 124/59 L Pulse Oximetry 99 97 81 L 08/21/17 05:00 08/21/17 05:15 08/21/17 05:30 Temperature Pulse Rate 60 60 60 Respiratory Rate 25 H 16 19 Blood Pressure 132/58 L 117/54 L 118/65 Pulse Oximetry 95 08/21/17 05:45 08/21/17 06:00 08/21/17 06:15 Temperature Pulse Rate 60 60 60 Respiratory Rate 18 18 17 Blood Pressure 119/65 112/64 114/65 Pulse Oximetry 77 L 99 97 08/21/17 06:30 08/21/17 06:45 08/21/17 07:00 Temperature Pulse Rate 60 60 60 Respiratory Rate 19 18 18 Blood Pressure 104/56 L 109/57 L 109/58 L Pulse Oximetry 97 98 98 08/21/17 07:15 08/21/17 07:30 08/21/17 07:45 Temperature Pulse Rate 60 59 L 59 L Respiratory Rate 16 17 19 Blood Pressure 113/58 L 116/61 106/55 L Pulse Oximetry 97 97 96 08/21/17 08:00 08/21/17 08:15 Temperature 97.7 F Pulse Rate 60 60 Respiratory Rate 17 18 Blood Pressure 106/57 L 110/61 Pulse Oximetry 96 98 Intake & Output 08/20/17 08/21/17 08/21/17 18:59 06:59 18:59 Intake Total 453 / 453 971 / 971 Output Total 1013 / 1013 Balance 453 / 453 971 / 971 -1013 / -1013 Weight 72.5 kg Intake: IV 453 / 453 731 / 731 Cordarone Inj 450 MG In D5W Inj 250 / 250 250 / 250 241 ML @ 1 MG/MIN 33.33 mls/hr IV.CONT .[id number] [facility] Rx#: [id number] Lidocaine/D5W 2000 mg/500 mL 278 / 278 Premix Inj 2,000 mg In 500 ml @ 1 MG/MIN 15 mls/hr IV.CONT . Q24H [facility] Rx#:[id number] Cordarone Inj 150 MG In D5W Inj 103 / 103 103 / 103 100 ML @ 600 mls/hr IV.SIG ONCE ONE Rx#:[id number] Magnesium Sulfate 1 gm/D5W 100 100 / 100 ml Premix 100 ML @ 0 mls/hr IV. SIG .STK-MED ONE Rx#:[id number] KCl 10 mEq Premix Inj 10 meq In 100 / 100 100 ml @ 100 mls/hr IV.SIG ONCE ONE Rx#:[id number] Oral 240 / 240 Output: Peritoneal Amount 1013 / 1013 Other: # Voids 1 # Bowel Movements 0 Result Diagrams: 08/21/17 05:09 08/21/17 05:09 Other Results: Laboratory Results - last 12 hr 08/20/17 08/20/17 08/20/17 22:49 22:49 23:15 WBC 10.1 RBC 2.90 L Hgb 10.0 L Hct 28.8 L MCV 99.5 MCH 34.6 H MCHC 34.8 RDW 14.2 Plt Count 192 MPV 8.1 Neut % (Auto) 74.4 H Lymph % (Auto) 11.7 [place] % (Auto) 11.6 H Eos % (Auto) 1.8 Baso % (Auto) 0.5 Neut # (Auto) 7.5 Lymph # (Auto) 1.2 [place] # (Auto) 1.2 H Eos # (Auto) 0.2 Baso # (Auto) 0.1 WBC Differential . Differential Comment Auto diff final Sodium 136 Potassium 3.6 Chloride 99 Carbon Dioxide 24.7 Anion Gap 12 BUN 32 H Creatinine 7.09 H Estimated GFR 8 L POC Glucose 134 H Random Glucose 120 H Calcium 8.5 Phosphorus Magnesium 3.7 H Total Bilirubin 0.3 AST 22 ALT 20 Alkaline Phosphatase 47 Troponin I Total Protein 6.2 L Albumin 2.6 L Triglycerides Cholesterol LDL Cholesterol, Calc HDL Cholesterol Cholesterol/HDL Ratio TSH 08/21/17 08/21/17 08/21/17 05:09 05:09 05:09 WBC 7.6 RBC 2.50 L Hgb 8.4 L Hct 24.5 L MCV 98.0 MCH 33.7 MCHC 34.3 RDW 14.2 Plt Count 176 MPV 8.0 Neut % (Auto) 76.5 H Lymph % (Auto) 9.8 [place] % (Auto) 11.4 H Eos % (Auto) 1.9 Baso % (Auto) 0.4 Neut # (Auto) 5.8 Lymph # (Auto) 0.[address] [place] # (Auto) 0.9 Eos # (Auto) 0.1 Baso # (Auto) 0.0 WBC Differential . Differential Comment Auto diff final Sodium 137 Potassium 3.5 Chloride 99 Carbon Dioxide 25.4 Anion Gap 13 BUN 30 H Creatinine 6.77 H Estimated GFR 8 L POC Glucose Random Glucose 114 H Calcium 8.6 Phosphorus 2.0 L Magnesium 3.5 H Total Bilirubin 0.3 AST 27 ALT 16 Alkaline Phosphatase 46 Troponin I 2.03 H* Total Protein 5.8 L Albumin 2.4 L Triglycerides 96 Cholesterol 100 L LDL Cholesterol, Calc 48 HDL Cholesterol 33.0 L Cholesterol/HDL Ratio 3.03 TSH 1.850 08/21/17 05:44 WBC RBC Hgb Hct MCV MCH MCHC RDW Plt Count MPV Neut % (Auto) Lymph % (Auto) [place] % (Auto) Eos % (Auto) Baso % (Auto) Neut # (Auto) Lymph # (Auto) [place] # (Auto) Eos # (Auto) Baso # (Auto) WBC Differential Differential Comment Sodium Potassium Chloride Carbon Dioxide Anion Gap BUN Creatinine Estimated GFR POC Glucose 114 H Random Glucose Calcium Phosphorus Magnesium Total Bilirubin AST ALT Alkaline Phosphatase Troponin I Total Protein Albumin Triglycerides Cholesterol LDL Cholesterol, Calc HDL Cholesterol Cholesterol/HDL Ratio TSH Imaging: Chest X-Ray 08/20/17 00:00 CONCLUSION: Pacing/AICD device in place from the left subclavian approach. Left medial base atelectasis or consolidation. Objective Remarks: GENERAL: 82-year-old male currently resting in bed on nasal cannula in no acute distress SKIN: Warm and dry. No DTIs HEAD: Atraumatic. Normocephalic. EYES: Pupils equal and round. No scleral icterus. No injection or drainage. ENT: No nasal bleeding or discharge. Mucous membranes pink and moist. NECK: Trachea midline. No JVD. CARDIOVASCULAR: Irregularly irregular. S1, S2 predose repair without murmur. RESPIRATORY: No accessory muscle use. Clear to auscultation. Breath sounds equal bilaterally. GASTROINTESTINAL: Abdomen soft, non-tender, nondistended. Hepatic and splenic margins not palpable. Peritoneal catheters placed and clean dry and intact MUSCULOSKELETAL: Extremities with trace upper lower extremity. Chronic venous stasis bilateral lower extremities. NEUROLOGICAL: Cranial nerves II through XII appear to be grossly intact. Strength grossly equal and symmetric bilaterally.. Normal sensation Assessment and Plan - Assessment and Plan Plan: NEURO/PSYCH: Altered mental status- resolved History of bilateral occipital/left cerebellar CVA Major depressive disorder NOS Glaucoma Seizure disorder NOS Monitor neuro status. Awake and alert. Acetaminophen 650 mg a mouth every 6 hours as needed pain 1 through 10/fever Morphine sulfate 2 mg IV every 4 hours as needed breakthrough pain Continue travoprost 0.004% 1 drop each eye at night Holding mirtazapine 15 mg at night/home medication for depression. Resume when/ if clinically indicated Currently off levetiracetam 250 mg by mouth daily according to patient. -Encephalopathy and syncope most likely related to sustained ventricular tachycardia- improved -No further CVA or TIA workup needed at this time RESP: -Continue with oxygen keep sats 92% Incentive spirometry while awake -Albuterol/ipratropium aerosols every 6 hours while awake with albuterol aerosols every 2 hours as needed for dyspnea CV: Sustained ventricular tachycardia Sinus bradycardia History of atrial fibrillation Elevated troponin 0.[address] Leong , s/p AICD placement 08/20 -Continue Amio and Lidocaine drips for V. tach. Dr. Brennan is consulted -On Coreg 3.125mg BID started this morning by Dr. Leong Continue aspirin 81 mg daily and clopidogrel 75 mg daily Echo 08/20 showed EF 35-40% 2D echocardiogram 02/26 revealed mild concentric left ventricular hypertrophy. The left ventricular systolic function is normal with an estimated ejection fraction in the range of 55-60%. Mild TR. The estimated pulmonary arterial pressure is 40 mmHg. Continue atorvastatin 80 mg at night. 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 difficile -Monitor closely for signs of infection(Fever, WBC) HEME: Normocytic anemia -Monitor CBC, CMP, coags ENDO: Sliding scale insulin with Accu-Cheks to maintain euglycemia/aspart every 6 hours low regimen TSH ordered MSK: PT evaluate and treat PROPH: -Bilateral lower extremity SCDs. Heparin subcu, IV famotidine LINES: -Utilize peripheral IVs, Level 2 follow-up
[2017-08-21] MEDS: Lidocaine/D5W 2000 mg/500 mL 2,000 MG/500 ML BAG IV.CONT SCH ×2 (10:50→13:45)
[2017-08-21] MEDS ORDERED: Lidocaine 2% 100 MG/5 ML Syringe IV.PUSH ONE (11:00)
[2017-08-21] MEDS: Latanoprost 0.005% Opth Drops 2.5 ML Bottle EACH EYE SCH (20:29)
[2017-08-22] MEDS: Lidocaine/D5W 2000 mg/500 mL 2,000 MG/500 ML BAG IV.CONT SCH (06:56)
[2017-08-22] MEDS ORDERED: Etomidate Inj 40 MG/20 ML Vial IV.PUSH ONE ×2 (06:58→06:59)
[2017-08-22] MEDS ORDERED: Propofol 1000 mg/100 ml Inj 1,000 MG/100 ML BOTTLE IV.CONT PRN (07:01)
[2017-08-22] MEDS ORDERED: fentaNYL 10 mcg/mL Premix Drip 2,500 MCG/250 ML BAG IV.SIG PRN (07:01)
--- NOTE | 2017-08-22 07:24 | P.PCN ---
Date of procedure: 08/22/17 Pre-op diagnosis: Altered mental status/unable to protect airway Post-op diagnosis: same Procedure: DATE: 08/22/2017 PROCEDURE: Orotracheal intubation INDICATION: Unresponsive/respiratory failure DETAILS OF PROCEDURE The patient was placed in optimal position and preoxygenated with 100% FiO2 via bag valve mask. At the start oxygen saturation was 100%. The patient was administered 20 milligrams etomidate IV and 50 milligrams rocuronium IV. I entered the oropharynx with a size 4 laryngoscope blade and obtained a grade 2 view of the airway. On single attempt a size 8.0 cuffed endotracheal tube was passed through the vocal cords. Correct tube location was confirmed with end tidal CO2 detector and by auscultating over bilateral lung garcia. The endotracheal tube was secured with adhesive tape at a depth of 24 cm at the lips. The patient was connected to the ventilator. The patient tolerated the procedure well without any apparent complications. Oxygen saturations were maintained greater than 95% all times. STAT chest x-ray pending at time of dictation.
--- NOTE | 2017-08-22 07:37 | P.PNCC ---
Subjective Subjective Remarks/Hospital Course: Patient is an 82-year-old male with a past medical history of hypertension, obstructive sleep apnea, COPD, history of CVA, end-stage renal disease on peritoneal dialysis who was recently admitted to [place] from 05/21/17 to for respiratory failure. He was brought into the emergency department today for multiple episodes of syncope. EMS strips showed several episodes of nonsustained V. tach. In the emergency department patient had a single episode of sustained V. tach, up to 54 seconds, with loss of consciousness. Pads were placed for emergency defibrillation however prior to defibrillation patient regained sinus rhythm and consciousness. Patient was given 150 mg amiodarone bolus IV, followed by amiodarone infusion. Dr. Leong from cardiology was consulted. I evaluated the patient in the emergency department. Patient is lying in bed denies chest pain. He has sinus bradycardia. I reviewed the EMS EKG strips, and the EKG done in the ED. He has sinus bradycardia, and prolonged QT interval. I discussed with Dr. Leong, we will continue amiodarone as this time as the patient responded to amiodarone. Patient will need serial cardiac enzymes, 2D echo, evaluate for AICD placement. Home medications of Midrin and propantheline will be held due to arrhythmias. Dr. Leong will evaluate for AICD placement 08/20: Overnight, 3 minute long episodes of V. tach with intermittent loss of conscious. CPR initiated with chest compressions 3 minutes. Defibrillator with 200 J. Rebolus with amiodarone 150 mg at 1040. Patient still intermittently in V. tach/bradycardic rhythm. Rebolus with 150 mg of amiodarone and currently on amiodarone drip at 1 mg/min. Lidocaine will be the next choice. Currently resting in bed and appears comfortable despite the ongoing unstable rhythm 08/21 Patient went into Vtach/vfib overnight AICD fired x 4 started now on Amio and Lidocaine drips. Afebrile. Awake and alert. Subjective 08/22: Afebrile. Last seen normal state of health at 0600. At 606 40, already noticed patient gurgling. A phasic. Both hands were at throat. Able to squeeze bilateral hands/reflexes. Moving left upper extremity spontaneously. No response bilateral lower extremities. Patient emergently intubated and sent for CT brain. Stroke alert was called and Dr. Marin notified. Attempting to notify Dr. Leong. Objective Vital Signs / I&O: Vital Signs 08/21/17 07:30 08/21/17 07:45 08/21/17 08:00 Temperature 97.7 F Pulse Rate 59 L 59 L 60 Respiratory Rate 17 19 17 Blood Pressure 116/61 106/55 L 106/57 L Pulse Oximetry 97 96 96 08/21/17 08:15 08/21/17 08:30 08/21/17 08:45 Temperature Pulse Rate 60 60 60 Respiratory Rate 18 16 16 Blood Pressure 110/61 117/58 L 111/59 L Pulse Oximetry 98 97 99 08/21/17 09:00 08/21/17 09:15 08/21/17 09:30 Temperature Pulse Rate 60 60 60 Respiratory Rate 16 17 17 Blood Pressure 112/59 L 126/64 122/58 L Pulse Oximetry 99 97 98 08/21/17 09:45 08/21/17 10:00 08/21/17 10:15 Temperature Pulse Rate 60 60 60 Respiratory Rate 15 17 19 Blood Pressure 120/61 120/62 114/59 L Pulse Oximetry 95 93 L 99 08/21/17 10:30 08/21/17 10:45 08/21/17 11:00 Temperature Pulse Rate 60 60 60 Respiratory Rate 20 17 18 Blood Pressure 113/58 L 111/56 L 106/58 L Pulse Oximetry 99 97 97 08/21/17 11:15 08/21/17 11:30 08/21/17 11:45 Temperature Pulse Rate 60 60 60 Respiratory Rate 16 17 20 Blood Pressure 99/58 L 99/58 L 100/58 L Pulse Oximetry 96 97 97 08/21/17 12:00 08/21/17 12:15 08/21/17 12:30 Temperature Pulse Rate 60 60 60 Respiratory Rate 16 17 17 Blood Pressure 110/57 L 108/59 L 106/57 L Pulse Oximetry 96 97 98 08/21/17 12:45 08/21/17 13:00 08/21/17 13:15 Temperature Pulse Rate 60 60 60 Respiratory Rate 17 18 15 Blood Pressure 102/50 L 95/55 L 101/52 L Pulse Oximetry 98 97 100 08/21/17 13:30 08/21/17 13:45 08/21/17 14:00 Temperature Pulse Rate 60 60 60 Respiratory Rate 16 15 15 Blood Pressure 102/56 L 105/58 L 107/55 L Pulse Oximetry 100 100 98 08/21/17 14:15 08/21/17 14:30 08/21/17 14:45 Temperature Pulse Rate 60 60 60 Respiratory Rate 16 17 18 Blood Pressure 106/59 L 106/53 L 115/59 L Pulse Oximetry 97 97 95 08/21/17 15:00 08/21/17 15:15 08/21/17 15:30 Temperature Pulse Rate 60 60 60 Respiratory Rate 14 15 14 Blood Pressure 106/56 L 105/54 L 116/56 L Pulse Oximetry 95 96 96 08/21/17 15:45 08/21/17 16:00 08/21/17 16:15 Temperature 97.2 F L Pulse Rate 60 60 60 Respiratory Rate 16 17 16 Blood Pressure 114/63 107/58 L 110/64 Pulse Oximetry 98 97 98 08/21/17 16:30 08/21/17 16:45 08/21/17 17:00 Temperature Pulse Rate 60 60 60 Respiratory Rate 18 15 16 Blood Pressure 113/60 113/60 113/58 L Pulse Oximetry 96 98 96 08/21/17 17:15 08/21/17 17:30 08/21/17 18:00 Temperature Pulse Rate 60 60 60 Respiratory Rate 15 15 15 Blood Pressure 121/63 119/65 Pulse Oximetry 98 97 91 L 08/21/17 18:07 08/21/17 18:15 08/21/17 18:30 Temperature Pulse Rate 60 60 60 Respiratory Rate 20 19 19 Blood Pressure 120/69 116/57 L 118/65 Pulse Oximetry 99 98 95 08/21/17 18:45 08/21/17 19:00 08/21/17 19:16 Temperature Pulse Rate 60 60 60 Respiratory Rate 17 17 25 H Blood Pressure 118/69 119/75 137/71 Pulse Oximetry 89 L 93 L 98 08/21/17 20:00 08/21/17 20:33 08/21/17 21:00 Temperature 98.3 F Pulse Rate 60 60 60 Respiratory Rate 16 16 16 Blood Pressure Pulse Oximetry 99 97 98 08/21/17 22:00 08/21/17 23:00 08/21/17 23:20 Temperature Pulse Rate 60 60 60 Respiratory Rate 15 15 17 Blood Pressure 125/71 Pulse Oximetry 95 96 95 08/21/17 23:30 08/21/17 23:45 08/22/17 00:00 Temperature 98.6 F Pulse Rate 60 60 60 Respiratory Rate 16 15 15 Blood Pressure 130/80 130/75 123/67 Pulse Oximetry 97 97 97 08/22/17 00:15 08/22/17 00:30 08/22/17 00:45 Temperature Pulse Rate 60 60 60 Respiratory Rate 15 15 23 Blood Pressure 128/75 129/74 123/66 Pulse Oximetry 96 97 94 L 08/22/17 01:00 08/22/17 01:15 08/22/17 01:30 Temperature Pulse Rate 60 60 60 Respiratory Rate 15 15 22 Blood Pressure 124/70 128/75 133/80 Pulse Oximetry 97 95 89 L 08/22/17 01:45 08/22/17 02:00 08/22/17 02:15 Temperature Pulse Rate 60 60 60 Respiratory Rate 17 18 17 Blood Pressure 130/75 122/68 126/78 Pulse Oximetry 96 96 97 08/22/17 02:30 08/22/17 07:17 08/22/17 07:24 Temperature Pulse Rate 60 Respiratory Rate 17 16 Blood Pressure 129/74 Pulse Oximetry 98 99 100 Intake & Output 08/21/17 08/22/17 08/22/17 18:59 06:59 18:59 Intake Total 655 / 655 500 / 500 Output Total 2226 / 2226 Balance -1571 / -1571 500 / 500 Intake: IV 175 / 175 500 / 500 Lidocaine/D5W 2000 mg/500 mL 175 / 175 Premix Inj 2,000 mg In 500 ml @ 0 mls/hr .ROUTE .[facility] Rx#:[id number] Lidocaine/D5W 2000 mg/500 mL 500 / 500 Premix Inj 2,000 mg In 500 ml @ 2 MG/MIN 30 mls/hr IV.CONT . [id number] [facility] Rx#:[id number] Oral 480 / 480 Output: Urine 200 / 200 Peritoneal Amount 2025 Other: # Bowel Movements 0 Result Diagrams: 08/22/17 07:15 08/22/17 07:15 Imaging: Chest X-Ray 08/19/17 11:35 CONCLUSION: Minimal parenchymal changes left base suspicious for inflammatory process. Mild compensated cardiomegaly Chest X-Ray 08/20/17 00:00 CONCLUSION: Pacing/AICD device in place from the left subclavian approach. Left medial base atelectasis or consolidation. Objective Remarks: GENERAL: 82-year-old male currently resting in bed orotracheally intubated SKIN: Warm and dry. No DTIs HEAD: Atraumatic. Normocephalic. EYES: Pupils equal and round. No scleral icterus. No injection or drainage. ENT: No nasal bleeding or discharge. Mucous membranes pink and moist. NECK: Trachea midline. No JVD. CARDIOVASCULAR: Irregularly irregular. S1, S2 predose repair without murmur. RESPIRATORY: No accessory muscle use. Clear to auscultation. Breath sounds equal bilaterally. GASTROINTESTINAL: Abdomen soft, non-tender, nondistended. Hepatic and splenic margins not palpable. Peritoneal catheters placed and clean dry and intact MUSCULOSKELETAL: Extremities with trace upper and lower extremity. Chronic venous stasis bilateral lower extremities with multiple dried scabs. NEUROLOGICAL: Prior to intubation, aphasic. No facial droop was noted. Both upper extremities work retracted towards throat. Reflex squeeze right upper extremity. Moving left upper extremity spontaneously but not to command. Did not withdraw to noxious stimuli bilateral lower extremities. Assessment and Plan - Assessment and Plan Plan: NEURO/PSYCH: Altered mental status- resolved History of bilateral occipital/left cerebellar CVA Major depressive disorder NOS Glaucoma Seizure disorder NOS Acute altered mental status Stroke alert Stroke alert called. Dr. Marin notified. Stat CT brain currently. Will discuss alteplase with Dr. Leong calls back Monitor neuro status. Currently in propofol/fentanyl drip for sedation/analgesia while intubated Goal of RASS of -2 Daily sedation vacation Acetaminophen 650 mg a mouth every 6 hours as needed pain 1 through 10/fever Continue travoprost 0.004% 1 drop each eye at night Holding mirtazapine 15 mg at night/home medication for depression. Resume when/ if clinically indicated Currently off levetiracetam 250 mg by mouth daily according to patient. -Encephalopathy and syncope most likely related to sustained ventricular tachycardia- improved -No further CVA or TIA workup needed at this time RESP: Acute respiratory failure secondary to AMS [facility] 16/525/ Ventilator bundle -Albuterol/ipratropium aerosols every 4 hours with albuterol aerosols every 2 hours as needed for dyspnea Spontaneous breathing trial/CPAP trials when clinically indicated Follow-up on post intubation ABG and chest x-ray CV: Sustained ventricular tachycardia Sinus bradycardia History of atrial fibrillation Elevated troponin Cardiology is following Dr. Leong , s/p AICD placement 08/20 -Continue Amiodarone at 1 mg/min and Lidocaine drips and 2 mg/min for V. tach. Dr. Brennan is consulted -On carvedilol 3.125mg BID started this morning by Dr. Leong Continue aspirin 81 mg daily and clopidogrel 75 mg daily Echo 08/20 showed EF 35-40% 2D echocardiogram 02/26 revealed mild concentric left ventricular hypertrophy. The left ventricular systolic function is normal with an estimated ejection fraction in the range of 55-60%. Mild TR. The estimated pulmonary arterial pressure is 40 mmHg. Continue atorvastatin 80 mg at night. Holding Midodrine 10 mg twice daily Troponin is currently downward trending. GI: Hypoalbuminemia Low total protein Peptic ulcer disease N.p.o. NG tube to low intermittent wall suction Lansoprazole 30 mg mg by mouth daily - Holding propantiene 50 mg daily for PUD Docusate sodium/senna 1 tablet twice daily for bowel regimen Adding lactulose 30 cc daily and polythene glycol 17 g twice daily for bowel regimen RENAL/FEN/: End-stage renal disease on peritoneal hemodialysis Hypermagnesia Renal osteodystrophy Monitor renal function, I/O's, avoid nephrotoxins -Patient states he has estimator is Dr. Osman Long Renal is following Continue calcitriol 0.25 mcg daily ID: History of C. difficile -Monitor closely for signs of infection(Fever, WBC) HEME: Normocytic anemia -Monitor CBC, CMP, coags ENDO: Sliding scale insulin with Accu-Cheks to maintain euglycemia/aspart every 6 hours low regimen. Check hemoglobin A1c TSH 1.85 MSK: PT evaluate and treat PROPH: -Bilateral lower extremity SCDs. Heparin subcu, lansoprazole LINES: -Utilize peripheral IVs, 35 minutes critical care time Discussed with Jolynn. Will hold aspirin clopidogrel and heparin subcu. Received alteplase per neurology. Repeat brain CT 24 hours. Code Status: Full code Discussed Condition With: Dr. Marin/neurology. Dr. Brennan for cardiology and Dr. Ho from nephrology. CT brain revealed old left parietal infarct. Will get stat CT angiogram of the brain and neck. Discussed with nephrology. Worried about risk of any residual renal function from IV contrast effects however need to consider benefits versus risk of giving alteplase at the present time. If it is considered emergent and life saving will perform. Discuss with cardiology. Okay for systemic alteplase. Discussed with Jolynn. 6% chance of bleeding. Benefits and risk of giving alteplase. She would want systemic alteplase if deemed appropriate by neurologist. Aware of risks.
--- NOTE | 2017-08-22 07:42 | CT ---
EXAM DATE: 08/22/2017 7:37 AM EDT AGE/SEX: 82 years / Male INDICATIONS: Stroke alert, altered mental status. Non-responsive. CLINICAL DATA: This is the patient's initial encounter. Patient reports that signs and symptoms have been present for 1 day and indicates a pain score of Nonresponsive. MEDICAL/SURGICAL HISTORY: Non-responsive. Non-responsive. RADIATION DOSE: 56.35 CTDI (mGy) COMPARISON: [facility] [place], CT BRAIN W/O CONTRAST, 05/22/2017. [facility] [place], CT BRAIN W/O CONTRAST, 04/13/2017. . Report was called by [ ] TECHNIQUE: CT of the head without contrast. Using automated exposure control and adjustment of the mA and/or kV according to patient size, radiation dose was kept as low as reasonably achievable to ob tain optimal diagnostic quality images. DICOM format image data is available electronically for revi ew and comparison. FINDINGS: Cerebrum: There is stable diffuse white matter atrophic changes with an area of more focal wedge-sha ped hypodensity involving the superior left parietal lobe consistent with old infarct. No evidence of intra-axial or extra-axial mass or fluid collection. No evidence of hemorrhage or midline shift. Posterior Fossa: The cerebellum and brainstem are intact. The 4th ventricle is midline. The cerebe llopontine angle is unremarkable. Extracranial: The visualized portion of the orbits is intact. Skull: The calvaria is intact. No evidence of skull fracture. CONCLUSION: 1. Stable diffuse white matter atrophic changes and old left-sided parietal infarct. Electronically signed by: Danielle Cabello MD 08/22/2017 7:41 AM EDT
[2017-08-22 07:46] LABS: Baso % (Auto) 0.5 % (0.0-2.0); Eos # (Auto) 0.3 th/mm3 (0.0-0.4); Eos % (Auto) 3.8 % (0.0-4.0); Hematocrit 26.3 % (39.0-51.0); Hemoglobin 8.9 gm/dL (13.0-17.0); Lymph # (Auto) 0.8 th/mm3 (1.0-4.8); Lymph % (Auto) 11.4 % (9.0-44.0); Mean Corpuscular HGB Conc 33.9 % (32.0-36.0); Mean Corpuscular Hemoglobin 33.1 pg (27.0-34.0); Mean Corpuscular Volume 97.8 fL (80.0-100.0); Mean Platelet Volume 7.5 fL (7.0-11.0); Mono # (Auto) 0.7 th/mm3 (0.0-0.9); Mono % (Auto) 9.8 % (0.0-8.0); Neut # (Auto) 5.1 th/mm3 (1.8-7.7); Neut % (Auto) 74.5 % (16.0-70.0); Platelet Count 164 th/mm3 (150-450); Red Blood Count 2.69 mil/mm3 (4.50-5.90); Red Cell Distribution Width 14.8 % (11.6-17.2); White Blood Count 6.8 th/mm3 (4.0-11.0)
[2017-08-22 07:54] LABS: INR 1.1 Ratio; Prothrombin Time 11.3 sec (9.8-11.6)
[2017-08-22] MEDS: Insulin NovoLOG Aspart Correctional Sugar Inj SQ SCH ×2 (08:03)
[2017-08-22] MEDS: Chlorhexidine Gluconate 2% 1 Pack (2 Cloths) TOPICAL SCH (08:03)
[2017-08-22 08:08] LABS: Troponin I 0.79 ng/mL (0.02-0.05)
--- NOTE | 2017-08-22 08:32 | XR ---
EXAM DATE: 08/22/2017 8:28 AM EDT AGE/SEX: 82 years / Male INDICATIONS: Status post intubation. CLINICAL DATA: This is the patient's subsequent encounter. Patient reports that signs and symptoms h ave been present for 2 days and indicates a pain score of Nonresponsive. MEDICAL/SURGICAL HISTORY: Non-responsive. Pacemaker. COMPARISON: C, CHEST 1V SINGLE AP, 08/20/2017. [facility] [place], CTA NECK W CONTRAST W 3D, 08/22/2017. . FINDINGS: A single AP view of the chest demonstrates interval intubation with the endotracheal tube just beyond the level of the clavicles. There has been improved aeration of the lungs with persistent left lower lobe atelectasis versus consolidation or fluid. The heart size is grossly normal. Dual lead AICD pre sent. . Osseous structures are intact. CONCLUSION: Interval intubation with endotracheal tube appropriate in position. Improved aeration of the lungs wi th persistent left lower lobe airspace consolidation/atelectasis or small pleural fluid. Electronically signed by: Danielle Cabello MD 08/22/2017 8:31 AM EDT
[2017-08-22 08:34] LABS: Alanine Aminotransferase 8 U/L (12-78); Albumin 2.3 g/dL (3.4-5.0); Alkaline Phosphatase 47 U/L (45-117); Anion Gap 15 meq/L (5-15); Aspartate Aminotransferase 22 U/L (15-37); Blood Urea Nitrogen 29 mg/dL (7-18); Calcium 8.5 mg/dL (8.5-10.1); Carbon Dioxide 23.8 meq/L (21.0-32.0); Chloride 96 meq/L (98-107); Glomerular Filtration Rate 8 mL/min (>89); Glucose,Random 91 mg/dL (74-106); Potassium 3.6 meq/L (3.5-5.1); Sodium 135 meq/L (136-145); Total Protein 5.8 g/dL (6.4-8.2)
--- NOTE | 2017-08-22 08:48 | CT ---
EXAM DATE: 08/22/2017 8:37 AM EDT AGE/SEX: 82 years / Male INDICATIONS: Stroke alert; unresponsive. CLINICAL DATA: This is the patient's initial encounter. Patient reports that signs and symptoms have been present for 1 day and indicates a pain score of Nonresponsive. MEDICAL/SURGICAL HISTORY: Stroke. Cardiovascular disease. Renal disease, end stage. Tonsillectomy . RADIATION DOSE: 10.33 CTDI (mGy) ; Combined studies COMPARISON: [facility] [place], CT HEAD W/O CONTRAST, 08/22/2017. [facility] [place], CT BRAIN W/O CONTRAST, 05/22/2017. . TECHNIQUE: Volumetric scanning was performed using a multi-row detector CT scanner during bolus infu jorge of 75 ml Visipaque 320 (iodixanol) nonionic water-soluble contrast as a cumulative dose for mul tiple exams. The data was post processed with a variety of visualization algorithms including full volume maximum intensity projection, multi-planar sliding thin slab reformation, curved planar reform ation, and surface rendering techniques. Using automated exposure control and adjustment of the mA a nd/or kV according to patient size, radiation dose was kept as low as reasonably achievable to obtain optimal diagnostic quality images. DICOM format image data is available electronically for review a nd comparison. FINDINGS: There is excellent visualization of the major intracranial arteries out to the second-order branch ve ssels. There is no evidence for aneurysm, vessel truncation or stenosis, and no evidence for vascula r malformation. CONCLUSION: 1. Negative CTA Head. Electronically signed by: Danielle Cabello MD 08/22/2017 8:47 AM EDT
[2017-08-22] MEDS ORDERED: Alteplase Drip 61.5 MG in Syringe/Bag 1 EACH IV.SIG ONE (08:53)
[2017-08-22] MEDS ORDERED: Alteplase Bolus 9 MG/9 ML Syringe IV.PUSH ONE (08:53)
--- NOTE | 2017-08-22 09:06 | CT ---
EXAM DATE: 08/22/2017 8:55 AM EDT AGE/SEX: 82 years / Male INDICATIONS: Stroke alert; unresponsive. CLINICAL DATA: This is the patient's initial encounter. Patient reports that signs and symptoms have been present for 1 day and indicates a pain score of Nonresponsive. MEDICAL/SURGICAL HISTORY: Stroke. Cardiovascular disease. Renal disease, end stage. Tonsillectomy . RADIATION DOSE: 10.33 CTDI (mGy) ; Combined studies COMPARISON: [facility], MRA CAROTIDS W/O CONTRAST, 05/28/2017. . TECHNIQUE: Volumetric scanning was performed using a multirow detector CT scanner during bolus infus ion of 75 ml Visipaque 320 (iodixanol) nonionic water-soluble contrast as a cumulative dose for mult iple exams. The data was postprocessed with a variety of visualization algorithms including full-vo lume maximum intensity projection, multiplanar sliding thin-slab reformation, curved-planar reformati on, and surface-rendering techniques. Using automated exposure control and adjustment of the mA and/ or kV according to patient size, radiation dose was kept as low as reasonably achievable to obtain op timal diagnostic quality images. DICOM format image data is available electronically for review and comparison. FINDINGS: Aortic Arch: There is a three-vessel origin of the great vessels from the aorta. No evidence of ost ial narrowing Right Carotid: The common carotid artery is intact. The carotid bulb has a normal configuration wit hout ulceration or narrowing. The internal carotid artery lumen is smooth without stenosis. The ext ernal carotid artery is intact. Left Carotid: The common carotid artery is intact. The carotid bulb has a normal configuration with out ulceration or narrowing. The internal carotid artery lumen is smooth without stenosis. The exte rnal carotid artery is intact. There is an area of beam hardening artifact identified within the mid common carotid artery. Vertebrals: The vertebral arteries have a symmetric diameter. No stenotic lesions are seen. Elevated flow velocities and ICA/CCA ratios have been found to correlate with increased degrees of ve ssel stenosis, calculated as percentage of diameter relative to a normal segment of distal ICA/CCA. CONCLUSION: 1. Negative CTA Carotid. Electronically signed by: Danielle Cabello MD 08/22/2017 9:04 AM EDT
--- NOTE | 2017-08-22 09:33 | MB ---
cc: Bhavana Marin MD DATE: 08/22/2017 REASON FOR CONSULTATION: Stroke alert. HISTORY OF PRESENT ILLNESS: This is an 82-year-old gentleman with a history of hypertension, obstructive sleep apnea, COPD, history of strokes in the past, end-stage renal disease on peritoneal dialysis, admitted from 05/21/2017-06/08/2017 for respiratory failure, brought to the ER now for multiple syncopal episodes. EMS strip showed several episodes of nonsustained ventricular tachycardia. He had another event in ED with loss of consciousness. He regained normal rhythm, given amiodarone and cardiology saw the patient. He had an AICD placed yesterday. Overnight, he had 3-minute long episode of V-tach, intermittent loss of consciousness on 08/20/2017. CPR initiated with chest compressions, defibrillated, given amiodarone. On 08/21/2017, he went into ventricular tachycardia, ventricular fibrillation overnight. AICD fired 4 times, now on amiodarone and lidocaine drips and was awake and alert. This morning, he was last seen normal at 6:00 a.m. and 30-40 minutes afterwards, he was noted to be aphasic, gurgling ,not following commands, able to squeeze with his hands, moving his left upper extremity, not the right. No movement in the legs. He was intubated emergently and sent for a CT. CT of the brain was unremarkable. Hence, I was notified, as well as cardiology, Dr. Leong. After a lengthy discussion with the , as well as with bench grinder, given that the patient is not improving, we elected that his best chance for any recovery would be TPA in light of risk of possible hemorrhage. Cardiology stated that it is okay to give TPA despite having the defibrillator placed yesterday. His , of note, states that they were on a cruise not too long back when something like this happened, and he was taken to [facility]; however, no TPA was administered because of the timeframe and he recovered in about 2 days. PHYSICAL EXAMINATION: VITAL SIGNS: Pulse rate is 60, respiratory rate 16, blood pressure 126/67, saturating 100% FiO2 100, intubated on the vent. NEUROLOGIC: His pupils are 1 mm down to 0.5, very sluggish. No gaze deviation. Unable to really determine any facial droop. Does not withdraw to any stimuli. Reflexes are blunted. Does not follow any commands. LABORATORY STUDIES: Reviewed. Hemoglobin is 8.9. His GFR is 8. His troponin is 0.79. Albumin 2.3. Coag panel: PTT is 41, but he is not on any anticoagulants. He only on baby aspirin and clopidogrel 75 mg. IMAGING STUDIES: CT angiogram of the [place] did not show any occlusions. IMPRESSION: Concerning in an 82-year-old man an acute stroke with multiple stroke history. He has not had his pacemaker fire this morning. There were no dysrhythmias noted. PLAN: Recommend at this point and the is in agreement, she wants to do everything that is possible, is to initiate TPA. She understands the risks of possible intracranial hemorrhage or hemorrhage from other locations 6-7% and/or even , and she is willing to take that risk. I. I also ordered a stat EEG. We will continue to monitor closely in the ICU. We will hold all antiplatelets for 24 hours post-procedure after the TPA and repeat a CT of the head in 24 hours stat should there be a decline. Further recommendations will be made accordingly. MD ARLEEN Cummins/HEAVEN , 09:04 AM , 09:32 AM
[2017-08-22] MEDS ORDERED: niCARdipine Inj 25 MG in Sodium Chlor 0.9% Inj 240 ML IV.CONT PRN (09:35)
[2017-08-22 09:56] LABS: ABG Base Excess 1.5 mmol/L (-2-2); ABG PCO2 32 mmHg (38-42); ABG PO2 63 mmHG (61-120)
--- NOTE | 2017-08-22 13:01 | P.PN ---
Subjective Interval history: On mechanical ventilation Physical Exam Vital signs: Vital Signs 08/21/17 13:00 08/21/17 13:15 08/21/17 13:30 Temperature Pulse Rate 60 60 60 Respiratory Rate 18 15 16 Blood Pressure 95/55 L 101/52 L 102/56 L Pulse Oximetry 97 100 100 08/21/17 13:45 08/21/17 14:00 08/21/17 14:15 Temperature Pulse Rate 60 60 60 Respiratory Rate 15 15 16 Blood Pressure 105/58 L 107/55 L 106/59 L Pulse Oximetry 100 98 97 08/21/17 14:30 08/21/17 14:45 08/21/17 15:00 Temperature Pulse Rate 60 60 60 Respiratory Rate 17 18 14 Blood Pressure 106/53 L 115/59 L 106/56 L Pulse Oximetry 97 95 95 08/21/17 15:15 08/21/17 15:30 08/21/17 15:45 Temperature Pulse Rate 60 60 60 Respiratory Rate 15 14 16 Blood Pressure 105/54 L 116/56 L 114/63 Pulse Oximetry 96 96 98 08/21/17 16:00 08/21/17 16:15 08/21/17 16:30 Temperature 97.2 F L Pulse Rate 60 60 60 Respiratory Rate 17 16 18 Blood Pressure 107/58 L 110/64 113/60 Pulse Oximetry 97 98 96 08/21/17 16:45 08/21/17 17:00 08/21/17 17:15 Temperature Pulse Rate 60 60 60 Respiratory Rate 15 16 15 Blood Pressure 113/60 113/58 L 121/63 Pulse Oximetry 98 96 98 08/21/17 17:30 08/21/17 18:00 08/21/17 18:07 Temperature Pulse Rate 60 60 60 Respiratory Rate 15 15 20 Blood Pressure 119/65 120/69 Pulse Oximetry 97 91 L 99 08/21/17 18:15 08/21/17 18:30 08/21/17 18:45 Temperature Pulse Rate 60 60 60 Respiratory Rate 19 19 17 Blood Pressure 116/57 L 118/65 118/69 Pulse Oximetry 98 95 89 L 08/21/17 19:00 08/21/17 19:16 08/21/17 20:00 Temperature 98.3 F Pulse Rate 60 60 60 Respiratory Rate 17 25 H 16 Blood Pressure 119/75 137/71 Pulse Oximetry 93 L 98 99 08/21/17 20:33 08/21/17 21:00 08/21/17 22:00 Temperature Pulse Rate 60 60 60 Respiratory Rate 16 16 15 Blood Pressure Pulse Oximetry 97 98 95 08/21/17 23:00 08/21/17 23:20 08/21/17 23:30 Temperature Pulse Rate 60 60 60 Respiratory Rate 15 17 16 Blood Pressure 125/71 130/80 Pulse Oximetry 96 95 97 08/21/17 23:45 08/22/17 00:00 08/22/17 00:15 Temperature 98.6 F Pulse Rate 60 60 60 Respiratory Rate 15 15 15 Blood Pressure 130/75 123/67 128/75 Pulse Oximetry 97 97 96 08/22/17 00:30 08/22/17 00:45 08/22/17 01:00 Temperature Pulse Rate 60 60 60 Respiratory Rate 15 23 15 Blood Pressure 129/74 123/66 124/70 Pulse Oximetry 97 94 L 97 08/22/17 01:15 08/22/17 01:30 08/22/17 01:45 Temperature Pulse Rate 60 60 60 Respiratory Rate 15 22 17 Blood Pressure 128/75 133/80 130/75 Pulse Oximetry 95 89 L 96 08/22/17 02:00 08/22/17 02:15 08/22/17 02:30 Temperature Pulse Rate 60 60 60 Respiratory Rate 18 17 17 Blood Pressure 122/68 126/78 129/74 Pulse Oximetry 96 97 98 08/22/17 02:45 08/22/17 03:00 08/22/17 03:15 Temperature Pulse Rate 60 60 60 Respiratory Rate 14 17 18 Blood Pressure 134/76 133/78 125/73 Pulse Oximetry 95 96 08/22/17 03:30 08/22/17 03:46 08/22/17 04:00 Temperature 98.6 F Pulse Rate 60 60 60 Respiratory Rate 19 17 17 Blood Pressure 123/69 106/55 L 118/73 Pulse Oximetry 98 08/22/17 04:15 08/22/17 04:30 08/22/17 04:45 Temperature Pulse Rate 60 60 60 Respiratory Rate 16 16 19 Blood Pressure 125/75 120/68 128/75 Pulse Oximetry 97 97 93 L 08/22/17 05:00 08/22/17 05:15 08/22/17 05:30 Temperature Pulse Rate 60 60 60 Respiratory Rate 17 15 16 Blood Pressure 128/74 116/65 114/63 Pulse Oximetry 95 96 98 08/22/17 05:45 08/22/17 06:00 08/22/17 06:15 Temperature Pulse Rate 60 60 60 Respiratory Rate 16 16 17 Blood Pressure 108/59 L 106/58 L 111/61 Pulse Oximetry 98 97 99 08/22/17 06:30 08/22/17 06:45 08/22/17 06:49 Temperature Pulse Rate 60 60 60 Respiratory Rate 17 40 H 28 H Blood Pressure 132/66 119/61 145/74 H Pulse Oximetry 99 94 L 87 L 08/22/17 07:00 08/22/17 07:08 08/22/17 07:10 Temperature Pulse Rate 60 60 60 Respiratory Rate 26 H 22 14 Blood Pressure 167/72 H 119/68 108/66 Pulse Oximetry 97 81 L 99 08/22/17 07:13 08/22/17 07:15 08/22/17 07:17 Temperature Pulse Rate 60 60 Respiratory Rate 21 16 16 Blood Pressure 138/66 133/70 Pulse Oximetry 100 100 99 08/22/17 07:18 08/22/17 07:24 08/22/17 08:00 Temperature 97.8 F Pulse Rate 60 60 Respiratory Rate 16 16 Blood Pressure 126/67 163/85 H Pulse Oximetry 100 100 99 08/22/17 09:46 08/22/17 11:11 08/22/17 11:31 Temperature Pulse Rate 60 60 Respiratory Rate 16 14 14 Blood Pressure Pulse Oximetry 95 98 08/22/17 12:00 Temperature 97.5 F L Pulse Rate 60 Respiratory Rate 16 Blood Pressure 159/88 H Pulse Oximetry 99 Intake & Output 08/21/17 08/22/17 08/22/17 18:59 06:59 18:59 Intake Total 655 / 655 500 / 500 Output Total 2226 / 2226 0 / 0 Balance -1571 / -1571 500 / 500 0 / 0 Weight 76 kg Intake: IV 175 / 175 500 / 500 Lidocaine/D5W 2000 mg/500 mL 175 / 175 Premix Inj 2,000 mg In 500 ml @ 0 mls/hr .ROUTE .[facility] Rx#:[id number] Lidocaine/D5W 2000 mg/500 mL 500 / 500 Premix Inj 2,000 mg In 500 ml @ 2 MG/MIN 30 mls/hr IV.CONT . [id number] COUNT INCLUDES THE [facility] Rx#:[id number] Oral 480 / 480 Output: Urine 200 / 200 Peritoneal Amount 2025 0 / 0 Other: # Bowel Movements 0 - Constitutional Comments: Intubated, following verbal indication - Routine HEENT Exam Head: Present: normocephalic Eye: Present: PERRL - Routine Neck Exam Comments: Left infraclavicular area with some bleeding at the surgical site - Routine Respiratory Exam Present: patient mechanically ventilated - Routine Cardiovascular Exam Present: RRR, S1, S2 - Routine Abdominal Exam Present: soft - Routine Extremities Exam Present: normal capillary refill - Routine Neurological Exam Present: alert Results - Labs CBC & Chem 7: 08/22/17 07:15 08/22/17 07:15 Laboratory Results - last 24 hr 08/21/17 08/21/17 08/22/17 17:15 20:35 00:34 WBC RBC Hgb POC Hgb (Calc) Hct POC Hct MCV MCH MCHC RDW Plt Count MPV Neut % (Auto) Lymph % (Auto) [place] % (Auto) Eos % (Auto) Baso % (Auto) Neut # (Auto) Lymph # (Auto) [place] # (Auto) Eos # (Auto) Baso # (Auto) WBC Differential Differential Comment PT INR APTT Fibrinogen Puncture Site Patient Temperature O2 Saturation ABG pH ABG pCO2 ABG pO2 ABG HCO3 ABG O2 Content ABG Base Excess ABG Methemoglobin Daniel Test Hemoglobin Carboxyhemoglobin O2 Delivery Device Vent Setting Inspired O2 Critical Value POC Sodium Sodium POC Potassium Potassium POC Chloride Chloride Carbon Dioxide Anion Gap POC BUN BUN Creatinine POC Creatinine Estimated GFR POC Glucose 104 92 Random Glucose Calcium Prot Corrected Calcium Total Bilirubin AST ALT Alkaline Phosphatase Total Creatine Kinase Troponin I 1.15 H* Total Protein Albumin Blood Type Blood Type Recheck Antibody Screen 08/22/17 08/22/17 08/22/17 06:50 07:15 07:15 WBC RBC Hgb POC Hgb (Calc) 8.5 L Hct POC Hct 25.0 L MCV MCH MCHC RDW Plt Count MPV Neut % (Auto) Lymph % (Auto) [place] % (Auto) Eos % (Auto) Baso % (Auto) Neut # (Auto) Lymph # (Auto) [place] # (Auto) Eos # (Auto) Baso # (Auto) WBC Differential Differential Comment PT INR APTT Fibrinogen Puncture Site Patient Temperature O2 Saturation ABG pH ABG pCO2 ABG pO2 ABG HCO3 ABG O2 Content ABG Base Excess ABG Methemoglobin Daniel Test Hemoglobin Carboxyhemoglobin O2 Delivery Device Vent Setting Inspired O2 Critical Value POC Sodium 133 L Sodium 135 L POC Potassium 3.6 Potassium 3.6 POC Chloride 92 L Chloride 96 L Carbon Dioxide 23.8 Anion Gap 15 POC BUN 29 H BUN 29 H Creatinine 6.72 H POC Creatinine 7.1 H Estimated GFR 8 L POC Glucose 106 93 Random Glucose 91 Calcium 8.5 Prot Corrected Calcium Technology Strategist Total Bilirubin 0.3 AST 22 ALT 8 L Alkaline Phosphatase 47 Total Creatine Kinase Cancelled Troponin I Cancelled Total Protein 5.8 L Albumin 2.3 L Blood Type Blood Type Recheck Antibody Screen 08/22/17 08/22/17 08/22/17 07:15 07:15 07:15 WBC 6.8 RBC 2.69 L Hgb 8.9 L POC Hgb (Calc) Hct 26.3 L POC Hct MCV 97.8 MCH 33.1 MCHC 33.9 RDW 14.8 Plt Count 164 MPV 7.5 Neut % (Auto) 74.5 H Lymph % (Auto) 11.4 [place] % (Auto) 9.8 H Eos % (Auto) 3.8 Baso % (Auto) 0.5 Neut # (Auto) 5.1 Lymph # (Auto) 0.8 L [place] # (Auto) 0.7 Eos # (Auto) 0.3 Baso # (Auto) 0.0 WBC Differential . Differential Comment Auto diff final PT 11.3 INR 1.1 APTT 41.0 H Fibrinogen 485 H Puncture Site Patient Temperature O2 Saturation ABG pH ABG pCO2 ABG pO2 ABG HCO3 ABG O2 Content ABG Base Excess ABG Methemoglobin Daniel Test Hemoglobin Carboxyhemoglobin O2 Delivery Device Vent Setting Inspired O2 Critical Value POC Sodium Sodium POC Potassium Potassium POC Chloride Chloride Carbon Dioxide Anion Gap POC BUN BUN Creatinine POC Creatinine Estimated GFR POC Glucose Random Glucose Calcium Prot Corrected Calcium Total Bilirubin AST ALT Alkaline Phosphatase Total Creatine Kinase Troponin I Total Protein Albumin Blood Type O Positive Blood Type Recheck Required Antibody Screen Negative 08/22/17 08/22/17 07:15 09:46 WBC RBC Hgb POC Hgb (Calc) Hct POC Hct MCV MCH MCHC RDW Plt Count MPV Neut % (Auto) Lymph % (Auto) [place] % (Auto) Eos % (Auto) Baso % (Auto) Neut # (Auto) Lymph # (Auto) [place] # (Auto) Eos # (Auto) Baso # (Auto) WBC Differential Differential Comment PT INR APTT Fibrinogen Puncture Site Left radial Patient Temperature 98.6 O2 Saturation 89 L* ABG pH 7.50 H ABG pCO2 32 L ABG pO2 63 ABG HCO3 25 ABG O2 Content 11.4 L ABG Base Excess 1.5 ABG Methemoglobin 2.0 Daniel Test Present Hemoglobin 9.0 L Carboxyhemoglobin 0.9 O2 Delivery Device Ventilator Vent Setting Prvc/ac Inspired O2 100 Critical Value Yes POC Sodium Sodium POC Potassium Potassium POC Chloride Chloride Carbon Dioxide Anion Gap POC BUN BUN Creatinine POC Creatinine Estimated GFR POC Glucose Random Glucose Calcium Prot Corrected Calcium Total Bilirubin AST ALT Alkaline Phosphatase Total Creatine Kinase 80 Troponin I 0.79 H* Total Protein Albumin Blood Type Blood Type Recheck Antibody Screen - Imaging Impressions Chest X-Ray 08/22/17 00:00 CONCLUSION: Interval intubation with endotracheal tube appropriate in position. Improved aeration of the lungs with persistent left lower lobe airspace consolidation/ atelectasis or small pleural fluid. Head CTA 08/22/17 00:00 CONCLUSION: 1. Negative CTA Head. Neck CTA 08/22/17 00:00 CONCLUSION: 1. Negative CTA Carotid. Head CT 08/22/17 07:04 CONCLUSION: 1. Stable diffuse white matter atrophic changes and old left-sided parietal infarct. Assessment and Plan - Assessment (1) Sustained ventricular tachycardia Code(s): I47.2 - Ventricular tachycardia Status: Deleted Plan: In sinus rhythm. A pacing V sensing No VT for the last 24 hrs This morning developed left side weakness and disorientation. Kelle of III. CVA suspected. CTA and head CT scan was performed. Case discussed with neurology and conductor yard. tPA was given Currently follow verbal indication No gross deficit Some bleeding at the device site. But the benefits of the thrombolytic outweighed the bleeding at the device site. Condition continue to be very critical Case discussed with family (2) Coronary artery disease Code(s): I25.10 - Atherosclerotic heart disease of [place] coronary artery without angina pectoris Status: Chronic (3) Paroxysmal atrial fibrillation Code(s): I48.0 - Paroxysmal atrial fibrillation Status: Acute Plan: A pacing V sensing (4) Cardiomyopathy Code(s): I42.9 - Cardiomyopathy, unspecified Status: Acute (2) Coronary artery disease Qualifiers: Coronary Disease-Associated Artery/Lesion type: [place] artery [place] vs. transplanted heart: [place] heart Associated angina: without angina Qualified Code(s): I25.10 - Atherosclerotic heart disease of [place] coronary artery without angina pectoris (4) Cardiomyopathy Qualifiers: Cardiomyopathy type: unspecified Qualified Code(s): I42.9 - Cardiomyopathy, unspecified
--- NOTE | 2017-08-22 14:56 | MB ---
cc: Curry Brennan MD DATE: 08/21/2017 REASON FOR CONSULTATION: Ventricular tachycardia. HISTORY OF PRESENT ILLNESS: Mr. Mcgovern is an 82-year-old gentleman with a history of high blood pressure, atrial fibrillation, COPD, end-stage renal disease, on hemodialysis, previous left-sided CVA in 03/2017, previous PTCA plus stent to RCA, was admitted due to syncope and episode of ventricular tachycardia. During hospitalization, amiodarone was initiated. The patient continued with tachyarrhythmia. Left heart catheterization was performed. Echocardiogram indicated ejection fraction of around 35-40%. During hospitalization, defibrillator was implanted by Dr. Leong yesterday. The patient continued with tachyarrhythmia. I was consulted for further evaluation and management. The chart was reviewed. The patient was evaluated. ALLERGIES: NONE. SOCIAL HISTORY: The patient is negative for smoking and drinking. FAMILY HISTORY: Noncontributory to his current medical condition. MEDICATIONS: He is on acetaminophen, amiodarone. He is on aspirin, Lipitor, Coreg, Plavix, IV lidocaine. REVIEW OF SYSTEMS: He referred feeling better. No chest pain. No palpitation. No fever. PHYSICAL EXAMINATION: GENERAL: At the time of evaluation, he was alert, fully oriented, in bed. VITAL SIGNS: His blood pressure 110/75, pulse 60, A pacing, V sensing, respiratory rate 18. LUNGS: Ventilated. CARDIOVASCULAR: S1, S2. Regular. No gallop. ABDOMEN: Soft. No mass. No bruits. EXTREMITIES: No edema. Left infraclavicular area with clean surgical wound. LABORATORY DATA: Hemoglobin 8.4, white blood cells 7.6. Potassium is 3.6, creatinine 6.72. Troponin was 1.15. ASSESSMENT AND RECOMMENDATIONS: Mr. Mcgovern currently is stable. He has no ventricular tachyarrhythmia. He is on amiodarone. His troponin was high. At this point, ventricular tachycardia most likely may be due to ischemia. Lidocaine was initiated. I will keep the lidocaine at least for the next 24 hours. Also, myocarditis suspected. Colchicine will be initiated at 0.6 mg twice a day for around 5 days. Case was previously discussed extensively with Dr. Leong. The device is well functioning. I am conventional underwriter during the weekend in this gentleman will be closely monitored. His condition is . MD BRYCE Khan , 12:53 PM , 02:54 PM
[2017-08-22] MEDS: Hypromellose 0.3% Opth Gel 10 GM Bottle EACH EYE SCH (16:00)
[2017-08-22] MEDS: CALCITRIOL PO SCH (16:15)
[2017-08-22] MEDS: Chlorhexidine 0.12% Oral Kit 15 ML UDC OROPHARYNG SCH (16:20)
[2017-08-22] MEDS: Sod Chloride 0.9% Inj 1,000 ML IV.CONT SCH (17:30)
[2017-08-22] MEDS: Senna/Docusate Sodium 8.6/50 MG Tablet PO SCH ×2 (20:24)
[2017-08-22] MEDS: Latanoprost 0.005% Opth Drops 2.5 ML Bottle EACH EYE SCH (20:25)
[2017-08-23] MEDS ORDERED: Albumin Human 5% Inj 500 ML IV.SIG ONE ×2 (05:58→10:10)
[2017-08-23] MEDS ORDERED: Sodium Chlor 0.9% Inj 500 ML IV.SIG ONE (05:58)
[2017-08-23 06:46] LABS: Baso % (Auto) 0.4 % (0.0-2.0); Eos # (Auto) 0.2 th/mm3 (0.0-0.4); Eos % (Auto) 3.1 % (0.0-4.0); Hematocrit 23.4 % (39.0-51.0); Lymph # (Auto) 0.8 th/mm3 (1.0-4.8); Lymph % (Auto) 11.6 % (9.0-44.0); Mean Corpuscular HGB Conc 34.2 % (32.0-36.0); Mean Corpuscular Hemoglobin 33.6 pg (27.0-34.0); Mean Corpuscular Volume 98.2 fL (80.0-100.0); Mean Platelet Volume 8.1 fL (7.0-11.0); Mono # (Auto) 0.8 th/mm3 (0.0-0.9); Neut # (Auto) 5.2 th/mm3 (1.8-7.7); Neut % (Auto) 73.9 % (16.0-70.0); Platelet Count 152 th/mm3 (150-450); Red Blood Count 2.38 mil/mm3 (4.50-5.90); Red Cell Distribution Width 14.9 % (11.6-17.2)
[2017-08-23 07:05] LABS: Alkaline Phosphatase 46 U/L (45-117); Anion Gap 15 meq/L (5-15); Aspartate Aminotransferase 17 U/L (15-37); Blood Urea Nitrogen 31 mg/dL (7-18); Calcium 8.3 mg/dL (8.5-10.1); Carbon Dioxide 22.1 meq/L (21.0-32.0); Chloride 96 meq/L (98-107); Glomerular Filtration Rate 8 mL/min (>89); Glucose,Random 83 mg/dL (74-106); Magnesium 2.7 mg/dL (1.5-2.5); Phosphorus 2.8 mg/dL (2.5-4.9); Potassium 3.3 meq/L (3.5-5.1); Sodium 133 meq/L (136-145); Total Protein 5.2 g/dL (6.4-8.2)
[2017-08-23] MEDS: Insulin NovoLOG Aspart Correctional Sugar Inj SQ SCH (07:36)
[2017-08-23] MEDS: Chlorhexidine 0.12% Oral Kit 15 ML UDC OROPHARYNG SCH ×2 (07:37→20:02)
[2017-08-23] MEDS: Sod Chloride 0.9% Inj 1,000 ML IV.CONT SCH (07:37)
--- NOTE | 2017-08-23 07:49 | MG ---
cc: Bhavana Marin MD EEG NUMBER: [id number] PATIENT IDENTIFICATIONS: 82 years old with photic stimulation, intubated, possible stroke alert .TPA was given to the patient. During the EEG, he started to move his toes and withdrew left upper extremity to deep tactile stimulation. Last EEG on 05/27/2017 showed generalized slowing and some triphasic waves. Medicines are amiodarone, lidocaine, and others and TPA. DESCRIPTION OF RECORD: There is overall slowing of the background predominately at 3 Hz. EKGs artifactual cannot be established by this recording. Some question of a spike and slow wave, but not very clear if this is artifact as there was a lot of noise in the ICU during this recording from staff members to machines. Overall, there is some moderate slowing 2-3 Hz. Photic stimulation without any significant driving response. IMPRESSION: Moderate slowing of background consistent with encephalopathy versus medicine effect. No evidence of any epileptiform features. Bhavana Marin MD DF/HEAVEN , 07:26 AM , 07:48 AM
[2017-08-23] MEDS ORDERED: Potassium Chloride 20 MEQ Pwd Pkt NG/OG ONE (09:23)
--- NOTE | 2017-08-23 09:38 | P.PNCC ---
Subjective Subjective Remarks/Hospital Course: Patient is an 82-year-old male with a past medical history of hypertension, obstructive sleep apnea, COPD, history of CVA, end-stage renal disease on peritoneal dialysis who was recently admitted to [place] from 05/21/17 to for respiratory failure. He was brought into the emergency department today for multiple episodes of syncope. EMS strips showed several episodes of nonsustained V. tach. In the emergency department patient had a single episode of sustained V. tach, up to 54 seconds, with loss of consciousness. Pads were placed for emergency defibrillation however prior to defibrillation patient regained sinus rhythm and consciousness. Patient was given 150 mg amiodarone bolus IV, followed by amiodarone infusion. Dr. Leong from cardiology was consulted. I evaluated the patient in the emergency department. Patient is lying in bed denies chest pain. He has sinus bradycardia. I reviewed the EMS EKG strips, and the EKG done in the ED. He has sinus bradycardia, and prolonged QT interval. I discussed with Dr. Leong, we will continue amiodarone as this time as the patient responded to amiodarone. Patient will need serial cardiac enzymes, 2D echo, evaluate for AICD placement. Home medications of Midrin and propantheline will be held due to arrhythmias. Dr. Leong will evaluate for AICD placement 08/20: Overnight, 3 minute long episodes of V. tach with intermittent loss of conscious. CPR initiated with chest compressions 3 minutes. Defibrillator with 200 J. Rebolus with amiodarone 150 mg at 1040. Patient still intermittently in V. tach/bradycardic rhythm. Rebolus with 150 mg of amiodarone and currently on amiodarone drip at 1 mg/min. Lidocaine will be the next choice. Currently resting in bed and appears comfortable despite the ongoing unstable rhythm 08/21 Patient went into Vtach/vfib overnight AICD fired x 4 started now on Amio and Lidocaine drips. Afebrile. Awake and alert. 08/22: Afebrile. Last seen normal state of health at 0600. At 606 40, already noticed patient gurgling. A phasic. Both hands were at throat. Able to squeeze bilateral hands/reflexes. Moving left upper extremity spontaneously. No response bilateral lower extremities. Patient emergently intubated and sent for CT brain. Stroke alert was called and Dr. Marin notified. Attempting to notify Dr. Leong. Subjective 08/23: On route to CT brain status post 24 hours alteplase patient went to an unstable rhythm likely V. fib after which she received a shock back into normal sinus rhythm. Currently awake and alert and following commands. Lidocaine drip restarted. Cardiology to be notified. Objective Vital Signs / I&O: Vital Signs 08/22/17 09:46 08/22/17 10:00 08/22/17 11:11 Temperature 97.8 F Pulse Rate 60 60 Respiratory Rate 16 16 14 Blood Pressure 163/85 H Pulse Oximetry 95 100 98 08/22/17 11:31 08/22/17 12:00 08/22/17 13:13 Temperature 97.5 F L Pulse Rate 60 60 Respiratory Rate 14 16 16 Blood Pressure 159/88 H Pulse Oximetry 99 98 08/22/17 14:00 08/22/17 14:15 08/22/17 14:30 Temperature Pulse Rate 60 60 60 Respiratory Rate 14 14 22 Blood Pressure 116/64 110/62 90/51 L Pulse Oximetry 97 93 L 41 L 08/22/17 14:45 08/22/17 15:00 08/22/17 15:12 Temperature Pulse Rate 60 60 60 Respiratory Rate 19 15 18 Blood Pressure 113/63 106/60 Pulse Oximetry 71 L 47 L 08/22/17 15:15 08/22/17 15:30 08/22/17 15:45 Temperature Pulse Rate 60 60 60 Respiratory Rate 16 20 14 Blood Pressure 103/61 108/64 105/55 L Pulse Oximetry 78 L 99 08/22/17 16:00 08/22/17 16:16 08/22/17 16:17 Temperature 97.5 F L Pulse Rate 60 60 60 Respiratory Rate 15 17 17 Blood Pressure 102/57 L 85/54 L 97/54 L Pulse Oximetry 100 99 100 08/22/17 16:30 08/22/17 16:32 08/22/17 16:45 Temperature Pulse Rate 60 60 Respiratory Rate 19 14 18 Blood Pressure 93/53 L 96/56 L Pulse Oximetry 100 100 100 08/22/17 17:00 08/22/17 17:15 08/22/17 17:30 Temperature Pulse Rate 60 60 60 Respiratory Rate 20 15 15 Blood Pressure 93/52 L 103/58 L 105/61 Pulse Oximetry 99 96 81 L 08/22/17 17:45 08/22/17 18:00 08/22/17 18:16 Temperature 97.5 F L Pulse Rate 60 60 60 Respiratory Rate 14 15 14 Blood Pressure 103/60 122/59 L 107/56 L Pulse Oximetry 84 L 74 L 88 L 08/22/17 18:30 08/22/17 18:45 08/22/17 19:00 Temperature Pulse Rate 60 60 59 L Respiratory Rate 14 15 18 Blood Pressure 100/59 L 108/57 L 107/58 L Pulse Oximetry 79 L 100 100 08/22/17 19:15 08/22/17 19:30 08/22/17 19:46 Temperature Pulse Rate 59 L 59 L 59 L Respiratory Rate 20 15 24 Blood Pressure 106/62 108/63 80/47 L Pulse Oximetry 84 L 100 100 08/22/17 20:00 08/22/17 20:03 08/22/17 20:15 Temperature 98.3 F Pulse Rate 59 L 59 L 59 L Respiratory Rate 14 15 14 Blood Pressure 96/55 L 102/59 L Pulse Oximetry 100 100 95 08/22/17 20:43 08/22/17 20:44 08/22/17 21:00 Temperature Pulse Rate 59 L 59 L 59 L Respiratory Rate 23 22 22 Blood Pressure 113/61 120/57 L 119/60 Pulse Oximetry 91 L 97 100 08/22/17 21:01 08/22/17 21:30 08/22/17 22:00 Temperature Pulse Rate 59 L 59 L 60 Respiratory Rate 22 15 16 Blood Pressure 119/67 103/56 L 95/52 L Pulse Oximetry 100 100 90 L 08/22/17 22:20 08/22/17 22:30 08/22/17 22:32 Temperature Pulse Rate 60 60 Respiratory Rate 15 14 19 Blood Pressure 75/47 L 77/50 L Pulse Oximetry 100 100 100 08/22/17 23:00 08/22/17 23:17 08/22/17 23:30 Temperature Pulse Rate 60 60 60 Respiratory Rate 15 15 18 Blood Pressure 88/55 L 86/54 L Pulse Oximetry 100 95 08/23/17 00:00 08/23/17 00:30 08/23/17 01:00 Temperature 100.6 F H 100.6 F H Pulse Rate 60 60 60 Respiratory Rate 14 15 12 Blood Pressure 90/52 L 101/56 L 100/55 L Pulse Oximetry 99 94 L 99 08/23/17 01:09 08/23/17 01:30 08/23/17 02:00 Temperature Pulse Rate 60 60 Respiratory Rate 14 11 L 24 Blood Pressure 104/57 L Pulse Oximetry 100 100 100 08/23/17 02:01 08/23/17 02:05 08/23/17 02:30 Temperature Pulse Rate 60 61 60 Respiratory Rate 28 H 24 18 Blood Pressure 85/50 L 88/55 L 101/57 L Pulse Oximetry 100 100 95 08/23/17 03:00 08/23/17 03:30 08/23/17 03:31 Temperature Pulse Rate 60 60 60 Respiratory Rate 13 14 19 Blood Pressure 83/54 L 63/42 L 62/43 L Pulse Oximetry 100 100 100 08/23/17 03:34 08/23/17 03:45 08/23/17 04:00 Temperature 100 F H Pulse Rate 60 60 60 Respiratory Rate 21 14 15 Blood Pressure 100/57 L 94/53 L Pulse Oximetry 99 100 08/23/17 04:15 08/23/17 04:20 08/23/17 04:30 Temperature Pulse Rate 60 60 Respiratory Rate 14 21 18 Blood Pressure 92/50 L 100/57 L Pulse Oximetry 100 98 100 08/23/17 06:00 08/23/17 07:36 08/23/17 08:00 Temperature Pulse Rate 60 59 L Respiratory Rate 14 14 22 Blood Pressure 110/51 L Pulse Oximetry 100 100 Intake & Output 08/22/17 08/23/17 08/23/17 18:59 06:59 18:59 Intake Total 250 / 250 0 / 0 1000 / 1000 Output Total 0 / 0 50 / 50 904 / 904 Balance 250 / 250 -50 / -50 96 / 96 Weight 84 kg Intake: IV 250 / 250 1000 / 1000 Cordarone Inj 450 MG In D5W Inj 250 / 250 241 ML @ 1 MG/MIN 33.33 mls/hr IV.CONT .[id number] MARC Rx#: [id number] NS Inj 1,000 ML @ 70 mls/hr IV. 1000 / 1000 CONT .[id number] MARC Rx#:[id number] Oral 0 / 0 Output: Urine 50 / 50 Peritoneal Amount 0 / 0 904 / 904 Gastric Drainage 0 / 0 Orogastric Tube 0 / 0 Other: # Voids 1 # Bowel Movements 0 Result Diagrams: 08/23/17 05:20 08/23/17 05:20 Imaging: Chest X-Ray 08/19/17 11:35 CONCLUSION: Minimal parenchymal changes left base suspicious for inflammatory process. Mild compensated cardiomegaly Chest X-Ray 08/20/17 00:00 CONCLUSION: Pacing/AICD device in place from the left subclavian approach. Left medial base atelectasis or consolidation. Chest X-Ray 08/22/17 00:00 CONCLUSION: Interval intubation with endotracheal tube appropriate in position. Improved aeration of the lungs with persistent left lower lobe airspace consolidation/ atelectasis or small pleural fluid. Head CTA 08/22/17 00:00 CONCLUSION: 1. Negative CTA Head. Neck CTA 08/22/17 00:00 CONCLUSION: 1. Negative CTA Carotid. Head CT 08/22/17 07:04 CONCLUSION: 1. Stable diffuse white matter atrophic changes and old left-sided parietal infarct. Objective Remarks: GENERAL: 82-year-old male currently resting in bed orotracheally intubated SKIN: Warm and dry. No DTIs HEAD: Atraumatic. Normocephalic. EYES: Pupils equal and round. No scleral icterus. No injection or drainage. ENT: No nasal bleeding or discharge. Mucous membranes pink and moist. NECK: Trachea midline. No JVD. CARDIOVASCULAR: Irregularly irregular. S1, S2 no S4. Currently without murmur. RESPIRATORY: No accessory muscle use. Clear to auscultation. Breath sounds equal bilaterally. GASTROINTESTINAL: Abdomen soft, non-tender, nondistended. Hepatic and splenic margins not palpable. Peritoneal catheters placed and clean dry and intact MUSCULOSKELETAL: Extremities with trace upper and lower extremity. Chronic venous stasis bilateral lower extremities with multiple dried scabs. NEUROLOGICAL: Prior to intubation, aphasic. No facial droop was noted. Cranial nerves II through XII appear to be grossly intact. Moves all 4 extremities spontaneously. Sensation intact. Assessment and Plan - Assessment and Plan Plan: NEURO/PSYCH: Altered mental status- resolved History of bilateral occipital/left cerebellar CVA Major depressive disorder NOS Glaucoma Seizure disorder NOS Acute altered mental status Stroke alert Stroke alert called. Dr. Marin consultation appreciated. Received alteplase Stat CT brain 08/22 revealed old left parietal CVA. No acute findings CT A brain revealed no acute findings CTA neck revealed no acute findings EEG revealed no epileptiform activity Monitor neuro status. Currently in propofol/fentanyl drip as needed for sedation/analgesia while intubated Goal of RASS of -2 Daily sedation vacation Acetaminophen 650 mg a mouth every 6 hours as needed pain 1 through 10/fever Continue travoprost 0.004% 1 drop each eye at night Holding mirtazapine 15 mg at night/home medication for depression. Resume when/ if clinically indicated Currently off levetiracetam 250 mg by mouth daily according to patient. -Encephalopathy and syncope most likely related to sustained ventricular tachycardia- improved -No further CVA or TIA workup needed at this time RESP: Acute respiratory failure secondary to AMS [facility] /02/14/39 Ventilator bundle -Albuterol/ipratropium aerosols every 4 hours with albuterol aerosols every 2 hours as needed for dyspnea Spontaneous breathing trial/CPAP trials when clinically indicated Spontaneous breathing trials to be started post CT brain today. CV: Sustained ventricular tachycardia Sinus bradycardia History of atrial fibrillation Elevated troponin Cardiology is following Dr. Leong , s/p AICD placement 08/20 -Continue Amiodarone at 0.5 mg/min and Lidocaine drips and 1 mg/min for V. tach. Dr. Brennan is consulted -On carvedilol 3.125mg BID started this morning by Dr. Leong Continue aspirin 81 mg daily and clopidogrel 75 mg daily Echo 08/20 showed EF 35-40% 2D echocardiogram 02/26 revealed mild concentric left ventricular hypertrophy. The left ventricular systolic function is normal with an estimated ejection fraction in the range of 55-60%. Mild TR. The estimated pulmonary arterial pressure is 40 mmHg. Continue atorvastatin 80 mg at night. Holding Midodrine 10 mg twice daily Troponin is currently downward trending. GI: Hypoalbuminemia Low total protein Peptic ulcer disease N.p.o. NG tube to low intermittent wall suction. 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 Osman Long Renal is following Continue calcitriol 0.25 mcg daily Will receive 50 mEq KCl 1 now. Recheck at 1500 hrs. ID: History of C. difficile -Monitor closely for signs of infection(Fever, WBC) HEME: Normocytic anemia -Monitor CBC, CMP, coags ENDO: Sliding scale insulin with Accu-Cheks to maintain euglycemia/aspart every 6 hours low regimen. Check hemoglobin A1c TSH 1.85 MSK: PT evaluate and treat PROPH: -Bilateral lower extremity SCDs. Heparin subcu, lansoprazole LINES: -Utilize peripheral IVs, 35 minutes critical care time Discussed with [facility]. Will hold aspirin clopidogrel and heparin subcu. Received alteplase per neurology. Repeat brain CT 24 hours.
[2017-08-23 10:00] LABS: Hemoglobin A1c 5.5 % (4.3-6.0)
[2017-08-23] MEDS ORDERED: Lidocaine/D5W 2000 mg/500 mL 2,000 MG/500 ML BAG IV.CONT SCH (10:00)
--- NOTE | 2017-08-23 10:16 | P.PNNP ---
Subjective Interval history: This is the note for 08/22/17. Patient was seen and examined, remain on the vent., open eyes occ. Physical Exam Vital signs: Vital Signs 08/22/17 11:11 08/22/17 11:31 08/22/17 12:00 Temperature 97.5 F L Pulse Rate 60 60 Respiratory Rate 14 14 16 Blood Pressure 159/88 H Pulse Oximetry 98 99 08/22/17 13:13 08/22/17 14:00 08/22/17 14:15 Temperature Pulse Rate 60 60 Respiratory Rate 16 14 14 Blood Pressure 116/64 110/62 Pulse Oximetry 98 97 93 L 08/22/17 14:30 08/22/17 14:45 08/22/17 15:00 Temperature Pulse Rate 60 60 60 Respiratory Rate 22 19 15 Blood Pressure 90/51 L 113/63 106/60 Pulse Oximetry 41 L 71 L 47 L 08/22/17 15:12 08/22/17 15:15 08/22/17 15:30 Temperature Pulse Rate 60 60 60 Respiratory Rate 18 16 20 Blood Pressure 103/61 108/64 Pulse Oximetry 78 L 08/22/17 15:45 08/22/17 16:00 08/22/17 16:16 Temperature 97.5 F L Pulse Rate 60 60 60 Respiratory Rate 14 15 17 Blood Pressure 105/55 L 102/57 L 85/54 L Pulse Oximetry 99 100 99 08/22/17 16:17 08/22/17 16:30 08/22/17 16:32 Temperature Pulse Rate 60 60 Respiratory Rate 17 19 14 Blood Pressure 97/54 L 93/53 L Pulse Oximetry 100 100 100 08/22/17 16:45 08/22/17 17:00 08/22/17 17:15 Temperature Pulse Rate 60 60 60 Respiratory Rate 18 20 15 Blood Pressure 96/56 L 93/52 L 103/58 L Pulse Oximetry 100 99 96 08/22/17 17:30 08/22/17 17:45 08/22/17 18:00 Temperature 97.5 F L Pulse Rate 60 60 60 Respiratory Rate 15 14 15 Blood Pressure 105/61 103/60 122/59 L Pulse Oximetry 81 L 84 L 74 L 08/22/17 18:16 08/22/17 18:30 08/22/17 18:45 Temperature Pulse Rate 60 60 60 Respiratory Rate 14 14 15 Blood Pressure 107/56 L 100/59 L 108/57 L Pulse Oximetry 88 L 79 L 100 08/22/17 19:00 08/22/17 19:15 08/22/17 19:30 Temperature Pulse Rate 59 L 59 L 59 L Respiratory Rate 18 20 15 Blood Pressure 107/58 L 106/62 108/63 Pulse Oximetry 100 84 L 100 08/22/17 19:46 08/22/17 20:00 08/22/17 20:03 Temperature 98.3 F Pulse Rate 59 L 59 L 59 L Respiratory Rate 24 14 15 Blood Pressure 80/47 L 96/55 L Pulse Oximetry 100 100 100 08/22/17 20:15 08/22/17 20:43 08/22/17 20:44 Temperature Pulse Rate 59 L 59 L 59 L Respiratory Rate 14 23 22 Blood Pressure 102/59 L 113/61 120/57 L Pulse Oximetry 95 91 L 97 08/22/17 21:00 08/22/17 21:01 08/22/17 21:30 Temperature Pulse Rate 59 L 59 L 59 L Respiratory Rate 22 22 15 Blood Pressure 119/60 119/67 103/56 L Pulse Oximetry 100 100 100 08/22/17 22:00 08/22/17 22:20 08/22/17 22:30 Temperature Pulse Rate 60 60 Respiratory Rate 16 15 14 Blood Pressure 95/52 L 75/47 L Pulse Oximetry 90 L 100 100 08/22/17 22:32 08/22/17 23:00 08/22/17 23:17 Temperature Pulse Rate 60 60 60 Respiratory Rate 19 15 15 Blood Pressure 77/50 L 88/55 L Pulse Oximetry 100 100 08/22/17 23:30 08/23/17 00:00 08/23/17 00:30 Temperature 100.6 F H 100.6 F H Pulse Rate 60 60 60 Respiratory Rate 18 14 15 Blood Pressure 86/54 L 90/52 L 101/56 L Pulse Oximetry 95 99 94 L 08/23/17 01:00 08/23/17 01:09 08/23/17 01:30 Temperature Pulse Rate 60 60 Respiratory Rate 12 14 11 L Blood Pressure 100/55 L 104/57 L Pulse Oximetry 99 100 100 08/23/17 02:00 08/23/17 02:01 08/23/17 02:05 Temperature Pulse Rate 60 60 61 Respiratory Rate 24 28 H 24 Blood Pressure 85/50 L 88/55 L Pulse Oximetry 100 100 100 08/23/17 02:30 08/23/17 03:00 08/23/17 03:30 Temperature Pulse Rate 60 60 60 Respiratory Rate 18 13 14 Blood Pressure 101/57 L 83/54 L 63/42 L Pulse Oximetry 95 100 100 08/23/17 03:31 08/23/17 03:34 08/23/17 03:45 Temperature Pulse Rate 60 60 60 Respiratory Rate 19 21 14 Blood Pressure 62/43 L 100/57 L Pulse Oximetry 100 99 08/23/17 04:00 08/23/17 04:15 08/23/17 04:20 Temperature 100 F H Pulse Rate 60 60 Respiratory Rate 15 14 21 Blood Pressure 94/53 L 92/50 L Pulse Oximetry 100 100 98 08/23/17 04:30 08/23/17 06:00 08/23/17 07:36 Temperature Pulse Rate 60 60 59 L Respiratory Rate 18 14 14 Blood Pressure 100/57 L 110/51 L Pulse Oximetry 100 100 08/23/17 08:00 Temperature Pulse Rate Respiratory Rate 22 Blood Pressure Pulse Oximetry 100 Intake & Output 08/22/17 08/23/17 08/23/17 18:59 06:59 18:59 Intake Total 250 / 250 0 / 0 1000 / 1000 Output Total 0 / 0 50 / 50 904 / 904 Balance 250 / 250 -50 / -50 96 / 96 Weight 84 kg Intake: IV 250 / 250 1000 / 1000 Cordarone Inj 450 MG In D5W Inj 250 / 250 241 ML @ 1 MG/MIN 33.33 mls/hr IV.CONT .Q7H31M MARC Rx#: [id number] NS Inj 1,000 ML @ 70 mls/hr IV. 1000 / 1000 CONT .[id number] MARC Rx#:[id number] Oral 0 / 0 Output: Urine 50 / 50 Peritoneal Amount 0 / 0 904 / 904 Gastric Drainage 0 / 0 Orogastric Tube 0 / 0 Other: # Voids 1 # Bowel Movements 0 Narrative: Patient remain intubated, and minimally responsive, occ. open eyes. HEENT: [place], Non icteric, conjunctive pale. Neck: Supple, JVD not elevated. Lungs: Bilateral good air entry, occ. wheezing, with few basal rales. Abd. Distended, non tender, BS positive. Ext: Mild leg edema. Assessment and Plan - Assessment (1) End stage renal disease Code(s): N18.6 - End stage renal disease Status: Deleted Plan: Continue nightly PD. His regimen consists of 11 hours, 6 cycles, 2500 ml fill volume, no last fill. We will use 1.5% solution. UF was acceptable. Monitor fluid status and electrolytes intermittently. Replace phosphorus PO, not on binders currently. Avoid excess IVF administration. Gadolinium in contraindicated. Midodrine if needed for hypotension. Dose medications appropriate to renal status. Patient has CTA of brain done. Neurology following. Continue same APD. BP is stable. (2) Cardiac syncope Code(s): R55 - Syncope and collapse Status: Deleted Plan: Seen by cardiology. s/p AICD placement. On Amiodarone and lidocaine. Dr. Brennan to be consulted. (3) Anemia associated with chronic renal failure Code(s): D63.1 - Anemia in chronic kidney disease Status: Acute Plan: No evidence of iron deficiency. Was given Epogen on Thursday. Monitor. (4) History of CVA (cerebrovascular accident) Code(s): Z86.73 - Personal history of transient ischemic attack (TIA), and cerebral infarction without residual deficits Status: Deleted Plan: On Plavix. Needs assistance with ADLs.
[2017-08-23] MEDS: Potassium Chlor 10 mEq Premix 10 MEQ/100 ML PIGGYBACK IV.SIG SCH ×3 (10:23→15:06)
--- NOTE | 2017-08-23 10:49 | P.PNNP ---
Subjective Interval history: Orally intubated on ventilator FiO2 at 40 %. PD nightly. <CarolcortezElelnEmber - Last Filed: 08/23/17 10:42> Physical Exam Vital signs: Vital Signs 08/22/17 11:11 08/22/17 11:31 08/22/17 12:00 Temperature 97.5 F L Pulse Rate 60 60 Respiratory Rate 14 14 16 Blood Pressure 159/88 H Pulse Oximetry 98 99 08/22/17 13:13 08/22/17 14:00 08/22/17 14:15 Temperature Pulse Rate 60 60 Respiratory Rate 16 14 14 Blood Pressure 116/64 110/62 Pulse Oximetry 98 97 93 L 08/22/17 14:30 08/22/17 14:45 08/22/17 15:00 Temperature Pulse Rate 60 60 60 Respiratory Rate 22 19 15 Blood Pressure 90/51 L 113/63 106/60 Pulse Oximetry 41 L 71 L 47 L 08/22/17 15:12 08/22/17 15:15 08/22/17 15:30 Temperature Pulse Rate 60 60 60 Respiratory Rate 18 16 20 Blood Pressure 103/61 108/64 Pulse Oximetry 78 L 08/22/17 15:45 08/22/17 16:00 08/22/17 16:16 Temperature 97.5 F L Pulse Rate 60 60 60 Respiratory Rate 14 15 17 Blood Pressure 105/55 L 102/57 L 85/54 L Pulse Oximetry 99 100 99 08/22/17 16:17 08/22/17 16:30 08/22/17 16:32 Temperature Pulse Rate 60 60 Respiratory Rate 17 19 14 Blood Pressure 97/54 L 93/53 L Pulse Oximetry 100 100 100 08/22/17 16:45 08/22/17 17:00 08/22/17 17:15 Temperature Pulse Rate 60 60 60 Respiratory Rate 18 20 15 Blood Pressure 96/56 L 93/52 L 103/58 L Pulse Oximetry 100 99 96 08/22/17 17:30 08/22/17 17:45 08/22/17 18:00 Temperature 97.5 F L Pulse Rate 60 60 60 Respiratory Rate 15 14 15 Blood Pressure 105/61 103/60 122/59 L Pulse Oximetry 81 L 84 L 74 L 08/22/17 18:16 08/22/17 18:30 08/22/17 18:45 Temperature Pulse Rate 60 60 60 Respiratory Rate 14 14 15 Blood Pressure 107/56 L 100/59 L 108/57 L Pulse Oximetry 88 L 79 L 100 08/22/17 19:00 08/22/17 19:15 08/22/17 19:30 Temperature Pulse Rate 59 L 59 L 59 L Respiratory Rate 18 20 15 Blood Pressure 107/58 L 106/62 108/63 Pulse Oximetry 100 84 L 100 08/22/17 19:46 08/22/17 20:00 08/22/17 20:03 Temperature 98.3 F Pulse Rate 59 L 59 L 59 L Respiratory Rate 24 14 15 Blood Pressure 80/47 L 96/55 L Pulse Oximetry 100 100 100 08/22/17 20:15 08/22/17 20:43 08/22/17 20:44 Temperature Pulse Rate 59 L 59 L 59 L Respiratory Rate 14 23 22 Blood Pressure 102/59 L 113/61 120/57 L Pulse Oximetry 95 91 L 97 08/22/17 21:00 08/22/17 21:01 08/22/17 21:30 Temperature Pulse Rate 59 L 59 L 59 L Respiratory Rate 22 22 15 Blood Pressure 119/60 119/67 103/56 L Pulse Oximetry 100 100 100 08/22/17 22:00 08/22/17 22:20 08/22/17 22:30 Temperature Pulse Rate 60 60 Respiratory Rate 16 15 14 Blood Pressure 95/52 L 75/47 L Pulse Oximetry 90 L 100 100 08/22/17 22:32 08/22/17 23:00 08/22/17 23:17 Temperature Pulse Rate 60 60 60 Respiratory Rate 19 15 15 Blood Pressure 77/50 L 88/55 L Pulse Oximetry 100 100 08/22/17 23:30 08/23/17 00:00 08/23/17 00:30 Temperature 100.6 F H 100.6 F H Pulse Rate 60 60 60 Respiratory Rate 18 14 15 Blood Pressure 86/54 L 90/52 L 101/56 L Pulse Oximetry 95 99 94 L 08/23/17 01:00 08/23/17 01:09 08/23/17 01:30 Temperature Pulse Rate 60 60 Respiratory Rate 12 14 11 L Blood Pressure 100/55 L 104/57 L Pulse Oximetry 99 100 100 08/23/17 02:00 08/23/17 02:01 07/15/18 02:05 Temperature Pulse Rate 60 60 61 Respiratory Rate 24 28 H 24 Blood Pressure 85/50 L 88/55 L Pulse Oximetry 100 100 100 08/23/17 02:30 08/23/17 03:00 08/23/17 03:30 Temperature Pulse Rate 60 60 60 Respiratory Rate 18 13 14 Blood Pressure 101/57 L 83/54 L 63/42 L Pulse Oximetry 95 100 100 08/23/17 03:31 08/23/17 03:34 08/23/17 03:45 Temperature Pulse Rate 60 60 60 Respiratory Rate 19 21 14 Blood Pressure 62/43 L 100/57 L Pulse Oximetry 100 99 08/23/17 04:00 08/23/17 04:15 08/23/17 04:20 Temperature 100 F H Pulse Rate 60 60 Respiratory Rate 15 14 21 Blood Pressure 94/53 L 92/50 L Pulse Oximetry 100 100 98 08/23/17 04:30 08/23/17 06:00 08/23/17 07:36 Temperature Pulse Rate 60 60 59 L Respiratory Rate 18 14 14 Blood Pressure 100/57 L 110/51 L Pulse Oximetry 100 100 08/23/17 08:00 Temperature Pulse Rate Respiratory Rate 22 Blood Pressure Pulse Oximetry 100 Intake & Output 08/22/17 08/23/17 08/23/17 18:59 06:59 18:59 Intake Total 250 / 250 0 / 0 1000 / 1000 Output Total 0 / 0 50 / 50 904 / 904 Balance 250 / 250 -50 / -50 96 / 96 Weight 84 kg Intake: IV 250 / 250 1000 / 1000 Cordarone Inj 450 MG In D5W Inj 250 / 250 241 ML @ 1 MG/MIN 33.33 mls/hr IV.CONT .Q7H31M [facility] Rx#: [id number] NS Inj 1,000 ML @ 70 mls/hr IV. 1000 / 1000 CONT .[id number] [facility] Rx#:[id number] Oral 0 / 0 Output: Urine 50 / 50 Peritoneal Amount 0 / 0 904 / 904 Gastric Drainage 0 / 0 Orogastric Tube 0 / 0 Other: # Voids 1 # Bowel Movements 0 - Routine Neck Exam Present: supple. Absent: JVD - Routine Respiratory Exam Present: patient mechanically ventilated. Absent: rales, rhonchi - Routine Cardiovascular Exam Present: RRR - Routine Abdominal Exam Present: soft. Absent: normoactive bowel sounds - Routine Extremities Exam Absent: edema - Routine Skin Exam Present: dry, warm <Ember Perez - Last Filed: 08/23/17 10:42> Vital signs: Vital Signs 08/23/17 11:43 08/23/17 11:44 08/23/17 14:30 Temperature Pulse Rate 60 60 Respiratory Rate 17 21 Blood Pressure Pulse Oximetry 99 99 08/23/17 14:45 08/23/17 15:00 08/23/17 15:15 Temperature Pulse Rate 60 60 60 Respiratory Rate 14 14 14 Blood Pressure 107/50 L 104/47 L 114/54 L Pulse Oximetry 100 100 100 08/23/17 15:30 08/23/17 15:45 08/23/17 16:00 Temperature Pulse Rate 60 60 60 Respiratory Rate 14 21 18 Blood Pressure 120/53 L 121/53 L 126/56 L Pulse Oximetry 100 98 97 08/23/17 16:15 08/23/17 17:12 08/23/17 17:30 Temperature Pulse Rate 60 60 60 Respiratory Rate 16 18 15 Blood Pressure 129/58 L Pulse Oximetry 96 100 100 08/23/17 17:41 08/23/17 17:45 08/23/17 18:00 Temperature Pulse Rate 60 60 60 Respiratory Rate 15 17 15 Blood Pressure 124/58 L 129/58 L 127/58 L Pulse Oximetry 100 100 100 08/23/17 18:15 08/23/17 18:30 08/23/17 18:45 Temperature Pulse Rate 60 60 60 Respiratory Rate 14 14 16 Blood Pressure 125/56 L 125/56 L 127/57 L Pulse Oximetry 100 100 100 08/23/17 19:00 08/23/17 19:15 08/23/17 19:30 Temperature Pulse Rate 60 60 60 Respiratory Rate 15 14 23 Blood Pressure 132/60 125/56 L 129/57 L Pulse Oximetry 100 100 96 08/23/17 19:45 08/23/17 20:00 08/23/17 20:15 Temperature 98.8 F Pulse Rate 60 60 60 Respiratory Rate 14 16 14 Blood Pressure 132/59 L 127/58 L 132/57 L Pulse Oximetry 100 100 100 08/23/17 20:30 08/23/17 20:45 08/23/17 20:56 Temperature Pulse Rate 60 60 60 Respiratory Rate 14 47 H 19 Blood Pressure 130/58 L 124/55 L Pulse Oximetry 100 100 99 08/23/17 21:00 08/23/17 21:15 08/23/17 21:30 Temperature Pulse Rate 60 60 60 Respiratory Rate 20 15 15 Blood Pressure 132/82 140/63 Pulse Oximetry 100 100 100 08/23/17 21:31 08/23/17 21:45 08/23/17 22:00 Temperature Pulse Rate 60 60 60 Respiratory Rate 17 14 17 Blood Pressure 133/59 L 130/60 Pulse Oximetry 100 100 100 08/23/17 22:02 08/23/17 22:15 08/23/17 22:30 Temperature Pulse Rate 60 60 60 Respiratory Rate 24 15 15 Blood Pressure 124/58 L 131/60 134/62 Pulse Oximetry 100 100 99 08/23/17 22:45 08/23/17 23:00 08/23/17 23:15 Temperature Pulse Rate 60 60 60 Respiratory Rate 14 14 16 Blood Pressure 143/59 H 131/60 136/59 L Pulse Oximetry 100 100 100 08/23/17 23:30 08/23/17 23:46 08/24/17 00:00 Temperature 98.4 F Pulse Rate 60 60 60 Respiratory Rate 14 14 18 Blood Pressure 141/57 H 134/62 140/65 Pulse Oximetry 100 100 100 08/24/17 00:11 08/24/17 00:15 08/24/17 00:30 Temperature Pulse Rate 60 60 60 Respiratory Rate 15 15 16 Blood Pressure 139/62 132/58 L Pulse Oximetry 100 100 99 08/24/17 00:46 08/24/17 01:00 08/24/17 01:01 Temperature Pulse Rate 60 60 60 Respiratory Rate 21 19 20 Blood Pressure 127/58 L 90/37 L Pulse Oximetry 99 99 100 08/24/17 01:13 08/24/17 01:15 08/24/17 01:30 Temperature Pulse Rate 60 60 60 Respiratory Rate 23 21 14 Blood Pressure 143/57 H 157/70 H 156/65 H Pulse Oximetry 100 100 100 08/24/17 02:00 08/24/17 02:30 08/24/17 03:00 Temperature Pulse Rate 60 60 60 Respiratory Rate 20 15 14 Blood Pressure 156/69 H 159/67 H 152/68 H Pulse Oximetry 100 97 100 08/24/17 03:30 08/24/17 03:57 07/16/18 04:00 Temperature 98.8 F Pulse Rate 60 60 60 Respiratory Rate 14 14 14 Blood Pressure 156/70 H 161/72 H Pulse Oximetry 100 100 100 08/24/17 04:30 08/24/17 05:00 08/24/17 05:30 Temperature Pulse Rate 60 60 60 Respiratory Rate 14 14 14 Blood Pressure 166/70 H 152/67 H 141/63 H Pulse Oximetry 100 100 100 08/24/17 06:00 08/24/17 06:30 08/24/17 06:36 Temperature Pulse Rate 60 60 60 Respiratory Rate 14 14 14 Blood Pressure 113/55 L 175/77 H 167/74 H Pulse Oximetry 100 100 100 08/24/17 07:00 08/24/17 07:30 08/24/17 08:00 Temperature 98.1 F Pulse Rate 60 60 60 Respiratory Rate 15 15 14 Blood Pressure 167/73 H 168/72 H 172/72 H Pulse Oximetry 100 100 100 08/24/17 08:30 08/24/17 08:47 08/24/17 09:00 Temperature Pulse Rate 60 60 Respiratory Rate 14 8 L 11 L Blood Pressure 165/73 H 169/75 H Pulse Oximetry 100 100 100 Intake & Output 08/23/17 08/24/17 08/24/17 18:59 06:59 18:59 Intake Total 1100 / 1100 1810 / 1810 1000 / 1000 Output Total 904 / 904 150 / 150 Balance 196 / 196 1660 / 1660 1000 / 1000 Weight 83.5 kg Intake: IV 1100 / 1100 1750 / 1750 1000 / 1000 Cordarone Inj 450 MG In D5W Inj 250 / 250 241 ML @ 1 MG/MIN 33.33 mls/hr IV.CONT .Q7H31M [facility] Rx#: [id number] Lidocaine/D5W 2000 mg/500 mL 500 / 500 Premix Inj 2,000 mg In 500 ml @ 2 MG/MIN 30 mls/hr IV.CONT . [id number] [facility] Rx#:[id number] NS Inj 1,000 ML @ 70 mls/hr IV. 1000 / 1000 1000 / 1000 1000 / 1000 CONT .[id number] [facility] Rx#:[id number] KCl 10 mEq Premix Inj 10 meq In 100 / 100 100 ml @ 100 mls/hr IV.SIG Q1H [facility] Rx#:[id number] Water Bolus Amount 60 / 60 Output: Urine 0 / 0 150 / 150 Peritoneal Amount 904 / 904 Other: Date of Last Bowel Movement 08/24/17 08/24/17 # Bowel Movements 2 <Clifford Ho - Last Filed: 08/24/17 10:39> Assessment and Plan - Assessment (1) End stage renal disease Code(s): N18.6 - End stage renal disease Status: Deleted Plan: Continue nightly PD. His regimen consists of 11 hours, 6 cycles, 2500 ml fill volume, no last fill. We will use 1.5% solution. Monitor fluid status and electrolytes intermittently. Replace phosphorus PO, not on binders currently. Avoid excess IVF administration. Gadolinium in contraindicated. Midodrine if needed for hypotension. (2) Cardiac syncope Code(s): R55 - Syncope and collapse Status: Deleted Plan: Seen by cardiology. s/p AICD placement. On Amiodarone and lidocaine. Dr. Brennan managing VTach this morning. (3) Anemia associated with chronic renal failure Code(s): D63.1 - Anemia in chronic kidney disease Status: Acute Plan: No evidence of iron deficiency. Was given Epogen on Thursday. Monitor. (4) History of CVA (cerebrovascular accident) Code(s): Z86.73 - Personal history of transient ischemic attack (TIA), and cerebral infarction without residual deficits Status: Deleted Plan: Received alteplase. Neurology managing. <Ember Perez - Last Filed: 08/23/17 10:42> - Assessment (1) End stage renal disease Code(s): N18.6 - End stage renal disease Status: Deleted (2) Cardiac syncope Code(s): R55 - Syncope and collapse Status: Deleted (3) Anemia associated with chronic renal failure Code(s): D63.1 - Anemia in chronic kidney disease Status: Acute (4) History of CVA (cerebrovascular accident) Code(s): Z86.73 - Personal history of transient ischemic attack (TIA), and cerebral infarction without residual deficits Status: Deleted - Attending Attestation Patient seen and examined, agree with above. Patient remain intubated, responding well, and moving all extremities. APD working well. Dr. Salcedo will follow from AM. <Jumani,Aleisha Q - Last Filed: 08/24/17 10:39>
[2017-08-23] MEDS: Lidocaine/D5W 2000 mg/500 mL 2,000 MG/500 ML BAG IV.CONT SCH (11:33)
[2017-08-23] MEDS: Polyethylene Glycol 3350 17 GM Packet PO SCH ×2 (11:38→20:01)
[2017-08-23] MEDS: Oral Hygiene Kit OROPHARYNG SCH ×2 (11:39→20:02)
[2017-08-23] MEDS: Hypromellose 0.3% Opth Gel 10 GM Bottle EACH EYE SCH ×2 (11:39→20:01)
--- NOTE | 2017-08-23 12:39 | P.PN ---
Subjective Interval history: alert had vt/vf today hypotensive pending f/u ct brain Physical Exam Vital signs: Vital Signs 08/22/17 13:13 08/22/17 14:00 08/22/17 14:15 Temperature Pulse Rate 60 60 Respiratory Rate 16 14 14 Blood Pressure 116/64 110/62 Pulse Oximetry 98 97 93 L 08/22/17 14:30 08/22/17 14:45 08/22/17 15:00 Temperature Pulse Rate 60 60 60 Respiratory Rate 22 19 15 Blood Pressure 90/51 L 113/63 106/60 Pulse Oximetry 41 L 71 L 47 L 08/22/17 15:12 08/22/17 15:15 08/22/17 15:30 Temperature Pulse Rate 60 60 60 Respiratory Rate 18 16 20 Blood Pressure 103/61 108/64 Pulse Oximetry 78 L 08/22/17 15:45 08/22/17 16:00 08/22/17 16:16 Temperature 97.5 F L Pulse Rate 60 60 60 Respiratory Rate 14 15 17 Blood Pressure 105/55 L 102/57 L 85/54 L Pulse Oximetry 99 100 99 08/22/17 16:17 08/22/17 16:30 08/22/17 16:32 Temperature Pulse Rate 60 60 Respiratory Rate 17 19 14 Blood Pressure 97/54 L 93/53 L Pulse Oximetry 100 100 100 08/22/17 16:45 08/22/17 17:00 08/22/17 17:15 Temperature Pulse Rate 60 60 60 Respiratory Rate 18 20 15 Blood Pressure 96/56 L 93/52 L 103/58 L Pulse Oximetry 100 99 96 08/22/17 17:30 08/22/17 17:45 08/22/17 18:00 Temperature 97.5 F L Pulse Rate 60 60 60 Respiratory Rate 15 14 15 Blood Pressure 105/61 103/60 122/59 L Pulse Oximetry 81 L 84 L 74 L 08/22/17 18:16 08/22/17 18:30 08/22/17 18:45 Temperature Pulse Rate 60 60 60 Respiratory Rate 14 14 15 Blood Pressure 107/56 L 100/59 L 108/57 L Pulse Oximetry 88 L 79 L 100 08/22/17 19:00 08/22/17 19:15 08/22/17 19:30 Temperature Pulse Rate 59 L 59 L 59 L Respiratory Rate 18 20 15 Blood Pressure 107/58 L 106/62 108/63 Pulse Oximetry 100 84 L 100 08/22/17 19:46 08/22/17 20:00 08/22/17 20:03 Temperature 98.3 F Pulse Rate 59 L 59 L 59 L Respiratory Rate 24 14 15 Blood Pressure 80/47 L 96/55 L Pulse Oximetry 100 100 100 08/22/17 20:15 08/22/17 20:43 08/22/17 20:44 Temperature Pulse Rate 59 L 59 L 59 L Respiratory Rate 14 23 22 Blood Pressure 102/59 L 113/61 120/57 L Pulse Oximetry 95 91 L 97 08/22/17 21:00 08/22/17 21:01 08/22/17 21:30 Temperature Pulse Rate 59 L 59 L 59 L Respiratory Rate 22 22 15 Blood Pressure 119/60 119/67 103/56 L Pulse Oximetry 100 100 100 08/22/17 22:00 08/22/17 22:20 08/22/17 22:30 Temperature Pulse Rate 60 60 Respiratory Rate 16 15 14 Blood Pressure 95/52 L 75/47 L Pulse Oximetry 90 L 100 100 08/22/17 22:32 08/22/17 23:00 08/22/17 23:17 Temperature Pulse Rate 60 60 60 Respiratory Rate 19 15 15 Blood Pressure 77/50 L 88/55 L Pulse Oximetry 100 100 08/22/17 23:30 08/23/17 00:00 08/23/17 00:30 Temperature 100.6 F H 100.6 F H Pulse Rate 60 60 60 Respiratory Rate 18 14 15 Blood Pressure 86/54 L 90/52 L 101/56 L Pulse Oximetry 95 99 94 L 08/23/17 01:00 08/23/17 01:09 08/23/17 01:30 Temperature Pulse Rate 60 60 Respiratory Rate 12 14 11 L Blood Pressure 100/55 L 104/57 L Pulse Oximetry 99 100 100 08/23/17 02:00 08/23/17 02:01 08/23/17 02:05 Temperature Pulse Rate 60 60 61 Respiratory Rate 24 28 H 24 Blood Pressure 85/50 L 88/55 L Pulse Oximetry 100 100 100 08/23/17 02:30 08/23/17 03:00 08/23/17 03:30 Temperature Pulse Rate 60 60 60 Respiratory Rate 18 13 14 Blood Pressure 101/57 L 83/54 L 63/42 L Pulse Oximetry 95 100 100 08/23/17 03:31 08/23/17 03:34 08/23/17 03:45 Temperature Pulse Rate 60 60 60 Respiratory Rate 19 21 14 Blood Pressure 62/43 L 100/57 L Pulse Oximetry 100 99 08/23/17 04:00 08/23/17 04:15 08/23/17 04:20 Temperature 100 F H Pulse Rate 60 60 Respiratory Rate 15 14 21 Blood Pressure 94/53 L 92/50 L Pulse Oximetry 100 100 98 08/23/17 04:30 08/23/17 06:00 08/23/17 07:36 Temperature Pulse Rate 60 60 59 L Respiratory Rate 18 14 14 Blood Pressure 100/57 L 110/51 L Pulse Oximetry 100 100 08/23/17 08:00 08/23/17 11:43 08/23/17 11:44 Temperature Pulse Rate 60 Respiratory Rate 22 17 Blood Pressure Pulse Oximetry 100 99 Intake & Output 08/22/17 08/23/17 08/23/17 18:59 06:59 18:59 Intake Total 250 / 250 500 / 500 1000 / 1000 Output Total 0 / 0 50 / 50 904 / 904 Balance 250 / 250 450 / 450 96 / 96 Weight 84 kg Intake: IV 250 / 250 500 / 500 1000 / 1000 Cordarone Inj 450 MG In D5W Inj 250 / 250 241 ML @ 1 MG/MIN 33.33 mls/hr IV.CONT .Q7H31M [facility] Rx#: [id number] Lidocaine/D5W 2000 mg/500 mL 500 / 500 Premix Inj 2,000 mg In 500 ml @ 2 MG/MIN 30 mls/hr IV.CONT . [id number] [facility] Rx#:[id number] NS Inj 1,000 ML @ 70 mls/hr IV. 1000 / 1000 CONT .[id number] [facility] Rx#:[id number] KCl 10 mEq Premix Inj 10 meq In 0 / 0 100 ml @ 100 mls/hr IV.SIG Q1H [facility] Rx#:[id number] Oral 0 / 0 Output: Urine 50 / 50 Peritoneal Amount 0 / 0 904 / 904 Gastric Drainage 0 / 0 Orogastric Tube 0 / 0 Other: # Voids 1 # Bowel Movements 0 Narrative: intub alert follows commands moves all 4 extrem to commands Results - Labs CBC & Chem 7: 08/23/17 05:20 08/23/17 05:20 Laboratory Results - last 24 hr 08/23/17 08/23/17 08/23/17 05:20 05:20 05:20 WBC 7.0 RBC 2.38 L Hgb 8.0 L Hct 23.4 L MCV 98.2 MCH 33.6 MCHC 34.2 RDW 14.9 Plt Count 152 MPV 8.1 Neut % (Auto) 73.9 H Lymph % (Auto) 11.6 Loving % (Auto) 11.0 H Eos % (Auto) 3.1 Baso % (Auto) 0.4 Neut # (Auto) 5.2 Lymph # (Auto) 0.8 L Loving # (Auto) 0.8 Eos # (Auto) 0.2 Baso # (Auto) 0.0 WBC Differential . Differential Comment Auto diff final Sodium 133 L Potassium 3.3 L Chloride 96 L Carbon Dioxide 22.1 Anion Gap 15 BUN 31 H Creatinine 6.76 H Estimated GFR 8 L Random Glucose 83 Hemoglobin A1c 5.5 Calcium 8.3 L Phosphorus 2.8 Magnesium 2.7 H Total Bilirubin 0.4 AST 17 ALT Less than 6 L Alkaline Phosphatase 46 Total Protein 5.2 L D Albumin 2.0 L Assessment and Plan - Assessment (1) CVA (cerebral vascular accident) Code(s): I63.9 - Cerebral infarction, unspecified Status: Acute - Plan will need f/u Ct brain post tpa antiplatelet ok use 300 mg pr asa f/u cardiology today keep sbp 120 or better.
--- NOTE | 2017-08-23 16:56 | CT ---
EXAM DATE: 08/23/2017 4:52 PM EDT AGE/SEX: 82 years / Male INDICATIONS: S/P TPA. CLINICAL DATA: This is the patient's subsequent encounter. Patient reports that signs and symptoms h ave been present for 1 day and indicates a pain score of Nonresponsive. MEDICAL/SURGICAL HISTORY: Cardiovascular disease. Cerebrovascular disease. Chronic obstructive pu lmonary disease. HTN None. RADIATION DOSE: 48.66 CTDI (mGy) ; Patient positioning COMPARISON: [facility], CTA HEAD W CONTRAST W 3D, 08/22/2017. . TECHNIQUE: CT of the head without contrast. Using automated exposure control and adjustment of the mA and/or kV according to patient size, radiation dose was kept as low as reasonably achievable to ob tain optimal diagnostic quality images. DICOM format image data is available electronically for revi ew and comparison. FINDINGS: Noncontrast axial head CT demonstrates the ventricles to be normal in size and configuration with a n ormal sulcal pattern. No acute intracranial hemorrhage, acute cortical infarction, mass or midline sh ift is seen. There is old infarct in the left parietal and left frontal regions. There is periventric ular hypodensity compatible with chronic ischemic change slightly more than expected for a patient th is age.Posterior fossa structures are unremarkable. Bone windows are unremarkable. CONCLUSION: No evidence of acute intracranial pathology. No masses are identified. Old left-sided infarcts as ab ove Electronically signed by: Stephen Bello MD 08/23/2017 4:54 PM EDT
[2017-08-23] MEDS: Chlorhexidine Gluconate 2% 1 Pack (2 Cloths) TOPICAL SCH (20:00)
[2017-08-23] MEDS: Latanoprost 0.005% Opth Drops 2.5 ML Bottle EACH EYE SCH (20:04)
[2017-08-23] MEDS: Senna/Docusate Sodium 8.6/50 MG Tablet PO SCH (20:04)
--- NOTE | 2017-08-23 20:58 | P.PN ---
Subjective Interval history: On mechanical ventilation Physical Exam Vital signs: Vital Signs 08/22/17 21:00 08/22/17 21:01 08/22/17 21:30 Temperature Pulse Rate 59 L 59 L 59 L Respiratory Rate 22 22 15 Blood Pressure 119/60 119/67 103/56 L Pulse Oximetry 100 100 100 08/22/17 22:00 08/22/17 22:20 08/22/17 22:30 Temperature Pulse Rate 60 60 Respiratory Rate 16 15 14 Blood Pressure 95/52 L 75/47 L Pulse Oximetry 90 L 100 100 08/22/17 22:32 08/22/17 23:00 08/22/17 23:17 Temperature Pulse Rate 60 60 60 Respiratory Rate 19 15 15 Blood Pressure 77/50 L 88/55 L Pulse Oximetry 100 100 08/22/17 23:30 08/23/17 00:00 08/23/17 00:30 Temperature 100.6 F H 100.6 F H Pulse Rate 60 60 60 Respiratory Rate 18 14 15 Blood Pressure 86/54 L 90/52 L 101/56 L Pulse Oximetry 95 99 94 L 08/23/17 01:00 08/23/17 01:09 08/23/17 01:30 Temperature Pulse Rate 60 60 Respiratory Rate 12 14 11 L Blood Pressure 100/55 L 104/57 L Pulse Oximetry 99 100 100 08/23/17 02:00 08/23/17 02:01 08/23/17 02:05 Temperature Pulse Rate 60 60 61 Respiratory Rate 24 28 H 24 Blood Pressure 85/50 L 88/55 L Pulse Oximetry 100 100 100 08/23/17 02:30 08/23/17 03:00 08/23/17 03:30 Temperature Pulse Rate 60 60 60 Respiratory Rate 18 13 14 Blood Pressure 101/57 L 83/54 L 63/42 L Pulse Oximetry 95 100 100 08/23/17 03:31 08/23/17 03:34 08/23/17 03:45 Temperature Pulse Rate 60 60 60 Respiratory Rate 19 21 14 Blood Pressure 62/43 L 100/57 L Pulse Oximetry 100 99 08/23/17 04:00 08/23/17 04:15 08/23/17 04:20 Temperature 100 F H Pulse Rate 60 60 Respiratory Rate 15 14 21 Blood Pressure 94/53 L 92/50 L Pulse Oximetry 100 100 98 08/23/17 04:30 08/23/17 06:00 08/23/17 07:04 Temperature Pulse Rate 60 60 59 L Respiratory Rate 18 14 Blood Pressure 100/57 L 110/51 L Pulse Oximetry 100 100 08/23/17 07:10 08/23/17 07:36 08/23/17 08:00 Temperature 98.7 F Pulse Rate 59 L 59 L 60 Respiratory Rate 14 14 Blood Pressure 94/56 L Pulse Oximetry 100 08/23/17 11:43 08/23/17 11:44 08/23/17 15:00 Temperature Pulse Rate 60 Respiratory Rate 17 14 Blood Pressure Pulse Oximetry 99 100 Intake & Output 08/23/17 08/23/17 08/24/17 06:59 18:59 06:59 Intake Total 500 / 500 1100 / 1100 Output Total 50 / 50 904 / 904 Balance 450 / 450 196 / 196 Weight 84 kg Intake: IV 500 / 500 1100 / 1100 Lidocaine/D5W 2000 mg/500 mL 500 / 500 Premix Inj 2,000 mg In 500 ml @ 2 MG/MIN 30 mls/hr IV.CONT . [id number] MARC Rx#:[id number] NS Inj 1,000 ML @ 70 mls/hr IV. 1000 / 1000 CONT .[id number] MARC Rx#:[id number] KCl 10 mEq Premix Inj 10 meq In 100 / 100 100 ml @ 100 mls/hr IV.SIG Q1H MARC Rx#:[id number] Oral 0 / 0 Output: Urine 50 / 50 0 / 0 Peritoneal Amount 904 / 904 Gastric Drainage 0 / 0 Orogastric Tube 0 / 0 Other: # Voids 1 # Bowel Movements 0 - Constitutional no acute distress - Routine HEENT Exam Head: Present: normocephalic Eye: Present: PERRL ENT: Present: mucous membranes moist - Routine Respiratory Exam Present: patient mechanically ventilated - Routine Cardiovascular Exam Present: RRR, S1, S2 - Routine Abdominal Exam Present: soft - Routine Extremities Exam Comments: No edema Poor circulation - Routine Neurological Exam Present: alert Alert, follows verbal indications Results - Labs CBC & Chem 7: 08/23/17 05:20 08/23/17 17:38 Laboratory Results - last 24 hr 08/23/17 08/23/17 08/23/17 05:20 05:20 05:20 WBC 7.0 RBC 2.38 L Hgb 8.0 L Hct 23.4 L MCV 98.2 MCH 33.6 MCHC 34.2 RDW 14.9 Plt Count 152 MPV 8.1 Neut % (Auto) 73.9 H Lymph % (Auto) 11.6 [place] % (Auto) 11.0 H Eos % (Auto) 3.1 Baso % (Auto) 0.4 Neut # (Auto) 5.2 Lymph # (Auto) 0.8 L [place] # (Auto) 0.8 Eos # (Auto) 0.2 Baso # (Auto) 0.0 WBC Differential . Differential Comment Auto diff final Sodium 133 L Potassium 3.3 L Chloride 96 L Carbon Dioxide 22.1 Anion Gap 15 BUN 31 H Creatinine 6.76 H Estimated GFR 8 L POC Glucose Random Glucose 83 Hemoglobin A1c 5.5 Calcium 8.3 L Phosphorus 2.8 Magnesium 2.7 H Total Bilirubin 0.4 AST 17 ALT Less than 6 L Alkaline Phosphatase 46 Total Protein 5.2 L D Albumin 2.0 L 08/23/17 08/23/17 16:29 17:38 WBC RBC Hgb Hct MCV MCH MCHC RDW Plt Count MPV Neut % (Auto) Lymph % (Auto) [place] % (Auto) Eos % (Auto) Baso % (Auto) Neut # (Auto) Lymph # (Auto) [place] # (Auto) Eos # (Auto) Baso # (Auto) WBC Differential Differential Comment Sodium Potassium 3.9 Chloride Carbon Dioxide Anion Gap BUN Creatinine Estimated GFR POC Glucose 104 Random Glucose Hemoglobin A1c Calcium Phosphorus Magnesium Total Bilirubin AST ALT Alkaline Phosphatase Total Protein Albumin - Imaging Impressions Head CT 08/23/17 10:00 CONCLUSION: No evidence of acute intracranial pathology. No masses are identified. 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 Will be monitored for neurologic side effects Condition of care (2) Coronary artery disease Code(s): I25.10 - Atherosclerotic heart disease of [place] coronary artery without angina pectoris Status: Chronic Plan: No chest pain Ischemic work up may be necessary (3) Paroxysmal atrial fibrillation Code(s): I48.0 - Paroxysmal atrial fibrillation Status: Acute Plan: A pacing V sensing (4) Cardiomyopathy Code(s): I42.9 - Cardiomyopathy, unspecified Status: Acute (2) Coronary artery disease Qualifiers: Coronary Disease-Associated Artery/Lesion type: [place] artery [place] vs. transplanted heart: [place] heart Associated angina: without angina Qualified Code(s): I25.10 - Atherosclerotic heart disease of [place] coronary artery without angina pectoris (4) Cardiomyopathy Qualifiers: Cardiomyopathy type: unspecified Qualified Code(s): I42.9 - Cardiomyopathy, unspecified
[2017-08-24] MEDS: Insulin NovoLOG Aspart Correctional Sugar Inj SQ SCH ×4 (00:27→18:29)
[2017-08-24] MEDS: Oral Hygiene Kit OROPHARYNG SCH ×5 (00:28→16:00)
[2017-08-24] MEDS: Sod Chloride 0.9% Inj 1,000 ML IV.CONT SCH ×2 (00:29→07:22)
[2017-08-24] MEDS: Lidocaine/D5W 2000 mg/500 mL 2,000 MG/500 ML BAG IV.CONT SCH ×2 (04:40→21:46)
[2017-08-24] MEDS: Chlorhexidine Gluconate 2% 1 Pack (2 Cloths) TOPICAL SCH (04:41)
[2017-08-24 08:03] LABS: Alkaline Phosphatase 42 U/L (45-117); Total Protein 5.2 g/dL (6.4-8.2)
[2017-08-24 08:07] LABS: Albumin 2.4 g/dL (3.4-5.0); Anion Gap 14 meq/L (5-15); Aspartate Aminotransferase 18 U/L (15-37); Blood Urea Nitrogen 27 mg/dL (7-18); Calcium 7.7 mg/dL (8.5-10.1); Carbon Dioxide 21.4 meq/L (21.0-32.0); Chloride 100 meq/L (98-107); Glomerular Filtration Rate 9 mL/min (>89); Glucose,Random 99 mg/dL (74-106); Magnesium 2.4 mg/dL (1.5-2.5); Phosphorus 2.6 mg/dL (2.5-4.9); Potassium 3.6 meq/L (3.5-5.1)
[2017-08-24 08:18] LABS: Sodium 135 meq/L (136-145)
[2017-08-24] MEDS: Senna/Docusate Sodium 8.6/50 MG Tablet PO SCH ×2 (08:29→21:48)
[2017-08-24] MEDS: Hypromellose 0.3% Opth Gel 10 GM Bottle EACH EYE SCH ×2 (08:30→12:16)
[2017-08-24] MEDS: CALCITRIOL PO SCH (08:30)
[2017-08-24] MEDS: Chlorhexidine 0.12% Oral Kit 15 ML UDC OROPHARYNG SCH ×2 (08:33→21:47)
--- NOTE | 2017-08-24 09:20 | P.PNCA ---
Subjective Interval history: Intubated. Sedated. Physical Exam Vital signs: Vital Signs 08/23/17 11:43 08/23/17 11:44 08/23/17 14:30 Temperature Pulse Rate 60 60 Respiratory Rate 17 21 Blood Pressure Pulse Oximetry 99 99 08/23/17 14:45 08/23/17 15:00 08/23/17 15:15 Temperature Pulse Rate 60 60 60 Respiratory Rate 14 14 14 Blood Pressure 107/50 L 104/47 L 114/54 L Pulse Oximetry 100 100 100 08/23/17 15:30 08/23/17 15:45 08/23/17 16:00 Temperature Pulse Rate 60 60 60 Respiratory Rate 14 21 18 Blood Pressure 120/53 L 121/53 L 126/56 L Pulse Oximetry 100 98 97 08/23/17 16:15 08/23/17 17:12 08/23/17 17:30 Temperature Pulse Rate 60 60 60 Respiratory Rate 16 18 15 Blood Pressure 129/58 L Pulse Oximetry 96 100 100 08/23/17 17:41 08/23/17 17:45 08/23/17 18:00 Temperature Pulse Rate 60 60 60 Respiratory Rate 15 17 15 Blood Pressure 124/58 L 129/58 L 127/58 L Pulse Oximetry 100 100 100 08/23/17 18:15 08/23/17 18:30 08/23/17 18:45 Temperature Pulse Rate 60 60 60 Respiratory Rate 14 14 16 Blood Pressure 125/56 L 125/56 L 127/57 L Pulse Oximetry 100 100 100 08/23/17 19:00 08/23/17 19:15 08/23/17 19:30 Temperature Pulse Rate 60 60 60 Respiratory Rate 15 14 23 Blood Pressure 132/60 125/56 L 129/57 L Pulse Oximetry 100 100 96 08/23/17 19:45 08/23/17 20:00 08/23/17 20:15 Temperature 98.8 F Pulse Rate 60 60 60 Respiratory Rate 14 16 14 Blood Pressure 132/59 L 127/58 L 132/57 L Pulse Oximetry 100 100 100 08/23/17 20:30 08/23/17 20:45 08/23/17 20:56 Temperature Pulse Rate 60 60 60 Respiratory Rate 14 47 H 19 Blood Pressure 130/58 L 124/55 L Pulse Oximetry 100 100 99 08/23/17 21:00 08/23/17 21:15 08/23/17 21:30 Temperature Pulse Rate 60 60 60 Respiratory Rate 20 15 15 Blood Pressure 132/82 140/63 Pulse Oximetry 100 100 100 08/23/17 21:31 08/23/17 21:45 08/23/17 22:00 Temperature Pulse Rate 60 60 60 Respiratory Rate 17 14 17 Blood Pressure 133/59 L 130/60 Pulse Oximetry 100 100 100 08/23/17 22:02 08/23/17 22:15 08/23/17 22:30 Temperature Pulse Rate 60 60 60 Respiratory Rate 24 15 15 Blood Pressure 124/58 L 131/60 134/62 Pulse Oximetry 100 100 99 08/23/17 22:45 08/23/17 23:00 08/23/17 23:15 Temperature Pulse Rate 60 60 60 Respiratory Rate 14 14 16 Blood Pressure 143/59 H 131/60 136/59 L Pulse Oximetry 100 100 100 08/23/17 23:30 08/23/17 23:46 08/24/17 00:00 Temperature 98.4 F Pulse Rate 60 60 60 Respiratory Rate 14 14 18 Blood Pressure 141/57 H 134/62 140/65 Pulse Oximetry 100 100 100 08/24/17 00:11 08/24/17 00:15 08/24/17 00:30 Temperature Pulse Rate 60 60 60 Respiratory Rate 15 15 16 Blood Pressure 139/62 132/58 L Pulse Oximetry 100 100 99 08/24/17 00:46 08/24/17 01:00 08/24/17 01:01 Temperature Pulse Rate 60 60 60 Respiratory Rate 21 19 20 Blood Pressure 127/58 L 90/37 L Pulse Oximetry 99 99 100 08/24/17 01:13 08/24/17 01:15 08/24/17 01:30 Temperature Pulse Rate 60 60 60 Respiratory Rate 23 21 14 Blood Pressure 143/57 H 157/70 H 156/65 H Pulse Oximetry 100 100 100 08/24/17 02:00 08/24/17 02:30 08/24/17 03:00 Temperature Pulse Rate 60 60 60 Respiratory Rate 20 15 14 Blood Pressure 156/69 H 159/67 H 152/68 H Pulse Oximetry 100 97 100 08/24/17 03:30 08/24/17 03:57 08/24/17 04:00 Temperature 98.8 F Pulse Rate 60 60 60 Respiratory Rate 14 14 14 Blood Pressure 156/70 H 161/72 H Pulse Oximetry 100 100 100 08/24/17 04:30 08/24/17 05:00 08/24/17 05:30 Temperature Pulse Rate 60 60 60 Respiratory Rate 14 14 14 Blood Pressure 166/70 H 152/67 H 141/63 H Pulse Oximetry 100 100 100 08/24/17 06:00 08/24/17 06:30 08/24/17 06:36 Temperature Pulse Rate 60 60 60 Respiratory Rate 14 14 14 Blood Pressure 113/55 L 175/77 H 167/74 H Pulse Oximetry 100 100 100 08/24/17 07:00 08/24/17 07:30 08/24/17 08:00 Temperature 98.1 F Pulse Rate 60 60 60 Respiratory Rate 15 15 14 Blood Pressure 167/73 H 168/72 H 172/72 H Pulse Oximetry 100 100 100 08/24/17 08:30 08/24/17 08:47 08/24/17 09:00 Temperature Pulse Rate 60 60 Respiratory Rate 14 8 L 11 L Blood Pressure 165/73 H 169/75 H Pulse Oximetry 100 100 100 Intake & Output 08/23/17 08/24/17 08/24/17 18:59 06:59 18:59 Intake Total 1100 / 1100 1810 / 1810 1000 / 1000 Output Total 904 / 904 150 / 150 Balance 196 / 196 1660 / 1660 1000 / 1000 Weight 83.5 kg Intake: IV 1100 / 1100 1750 / 1750 1000 / 1000 Cordarone Inj 450 MG In D5W Inj 250 / 250 241 ML @ 1 MG/MIN 33.33 mls/hr IV.CONT .Q7H31M MARC Rx#: [id number] Lidocaine/D5W 2000 mg/500 mL 500 / 500 Premix Inj 2,000 mg In 500 ml @ 2 MG/MIN 30 mls/hr IV.CONT . [id number] MARC Rx#:[id number] NS Inj 1,000 ML @ 70 mls/hr IV. 1000 / 1000 1000 / 1000 1000 / 1000 CONT .[id number] MARC Rx#:[id number] KCl 10 mEq Premix Inj 10 meq In 100 / 100 100 ml @ 100 mls/hr IV.SIG Q1H MARC Rx#:[id number] Water Bolus Amount 60 / 60 Output: Urine 0 / 0 150 / 150 Peritoneal Amount 904 / 904 Other: Date of Last Bowel Movement 07/16/18 # Bowel Movements 2 - Constitutional Comments: Intubated. Sedated. - Routine Neck Exam Absent: JVD - Routine Respiratory Exam Present: CTA bilaterally - Routine Cardiovascular Exam Present: RRR, S1, S2. Absent: murmur, gallop - Routine Abdominal Exam Present: soft, normoactive bowel sounds. Absent: organomegaly - Routine Extremities Exam Absent: cyanosis, clubbing, edema Assessment and Plan - Assessment (1) Sustained ventricular tachycardia Code(s): I47.2 - Ventricular tachycardia Status: Deleted Plan: Stable overnight. Remains on IV Amiodarone and IV lidocaine. Echo reviewed, agree EF 35-40%. EF on echo 08/16/17 at [facility] 55%. ? has myocarditis REC continue IV lido/IV amiodarone, oral carvedilol (increase dose) continue colchicine as per Dr. Brennan (2) Coronary artery disease Code(s): I25.10 - Atherosclerotic heart disease of [place] coronary artery without angina pectoris Status: Chronic Plan: Stable CAD status. No recent angina. Continue Plavix, aspirin. Nuclear stress test images from [facility] 08/17/17 reviewed; they are completely normal. (3) Cardiomyopathy Code(s): I42.9 - Cardiomyopathy, unspecified Status: Acute Plan: Echo this admission reviewed, agree EF reduced to ~35-40% with global hypokinesis. EF on echo 08/16/17 normal. Increase carvedilol. No SHAUNNA-I or ARB with CRI. (4) Paroxysmal atrial fibrillation Code(s): I48.0 - Paroxysmal atrial fibrillation Status: Acute Plan: Not well documented history of atrial fibrillation. Can track any future atrial fibrillation via ICD transmissions. Continue daily aspirin. Likely to remain on Amiodarone post discharge as well. - Plan Code Status: alternative code Discussed Condition With: patient's (2) Coronary artery disease Qualifiers: Coronary Disease-Associated Artery/Lesion type: [place] artery [place] vs. transplanted heart: [place] heart Associated angina: without angina Qualified Code(s): I25.10 - Atherosclerotic heart disease of [place] coronary artery without angina pectoris (3) Cardiomyopathy Qualifiers: Cardiomyopathy type: unspecified Qualified Code(s): I42.9 - Cardiomyopathy, unspecified
--- NOTE | 2017-08-24 10:45 | P.PNNP ---
Subjective Interval history: patient is intubated, on Lidocaine and Amiodarone drips. is at the bedside. PD carried out last night: UF of 995 ml. Demonstrates edema, will use a combination of 2.5 % dextrose PD solution and 1.5 % dextrose PD solution. Received tPA on the suspicion of CVA Physical Exam Vital signs: Vital Signs 08/23/17 11:43 08/23/17 11:44 08/23/17 14:30 Temperature Pulse Rate 60 60 Respiratory Rate 17 21 Blood Pressure Pulse Oximetry 99 99 08/23/17 14:45 08/23/17 15:00 08/23/17 15:15 Temperature Pulse Rate 60 60 60 Respiratory Rate 14 14 14 Blood Pressure 107/50 L 104/47 L 114/54 L Pulse Oximetry 100 100 100 08/23/17 15:30 08/23/17 15:45 08/23/17 16:00 Temperature Pulse Rate 60 60 60 Respiratory Rate 14 21 18 Blood Pressure 120/53 L 121/53 L 126/56 L Pulse Oximetry 100 98 97 08/23/17 16:15 08/23/17 17:12 08/23/17 17:30 Temperature Pulse Rate 60 60 60 Respiratory Rate 16 18 15 Blood Pressure 129/58 L Pulse Oximetry 96 100 100 08/23/17 17:41 08/23/17 17:45 08/23/17 18:00 Temperature Pulse Rate 60 60 60 Respiratory Rate 15 17 15 Blood Pressure 124/58 L 129/58 L 127/58 L Pulse Oximetry 100 100 100 08/23/17 18:15 08/23/17 18:30 08/23/17 18:45 Temperature Pulse Rate 60 60 60 Respiratory Rate 14 14 16 Blood Pressure 125/56 L 125/56 L 127/57 L Pulse Oximetry 100 100 100 08/23/17 19:00 08/23/17 19:15 08/23/17 19:30 Temperature Pulse Rate 60 60 60 Respiratory Rate 15 14 23 Blood Pressure 132/60 125/56 L 129/57 L Pulse Oximetry 100 100 96 08/23/17 19:45 08/23/17 20:00 08/23/17 20:15 Temperature 98.8 F Pulse Rate 60 60 60 Respiratory Rate 14 16 14 Blood Pressure 132/59 L 127/58 L 132/57 L Pulse Oximetry 100 100 100 08/23/17 20:30 08/23/17 20:45 08/23/17 20:56 Temperature Pulse Rate 60 60 60 Respiratory Rate 14 47 H 19 Blood Pressure 130/58 L 124/55 L Pulse Oximetry 100 100 99 08/23/17 21:00 08/23/17 21:15 08/23/17 21:30 Temperature Pulse Rate 60 60 60 Respiratory Rate 20 15 15 Blood Pressure 132/82 140/63 Pulse Oximetry 100 100 100 08/23/17 21:31 08/23/17 21:45 08/23/17 22:00 Temperature Pulse Rate 60 60 60 Respiratory Rate 17 14 17 Blood Pressure 133/59 L 130/60 Pulse Oximetry 100 100 100 08/23/17 22:02 08/23/17 22:15 08/23/17 22:30 Temperature Pulse Rate 60 60 60 Respiratory Rate 24 15 15 Blood Pressure 124/58 L 131/60 134/62 Pulse Oximetry 100 100 99 08/23/17 22:45 08/23/17 23:00 08/23/17 23:15 Temperature Pulse Rate 60 60 60 Respiratory Rate 14 14 16 Blood Pressure 143/59 H 131/60 136/59 L Pulse Oximetry 100 100 100 08/23/17 23:30 08/23/17 23:46 08/24/17 00:00 Temperature 98.4 F Pulse Rate 60 60 60 Respiratory Rate 14 14 18 Blood Pressure 141/57 H 134/62 140/65 Pulse Oximetry 100 100 100 08/24/17 00:11 08/24/17 00:15 08/24/17 00:30 Temperature Pulse Rate 60 60 60 Respiratory Rate 15 15 16 Blood Pressure 139/62 132/58 L Pulse Oximetry 100 100 99 08/24/17 00:46 08/24/17 01:00 08/24/17 01:01 Temperature Pulse Rate 60 60 60 Respiratory Rate 21 19 20 Blood Pressure 127/58 L 90/37 L Pulse Oximetry 99 99 100 08/24/17 01:13 08/24/17 01:15 08/24/17 01:30 Temperature Pulse Rate 60 60 60 Respiratory Rate 23 21 14 Blood Pressure 143/57 H 157/70 H 156/65 H Pulse Oximetry 100 100 100 08/24/17 02:00 08/24/17 02:30 08/24/17 03:00 Temperature Pulse Rate 60 60 60 Respiratory Rate 20 15 14 Blood Pressure 156/69 H 159/67 H 152/68 H Pulse Oximetry 100 97 100 08/24/17 03:30 08/24/17 03:57 08/24/17 04:00 Temperature 98.8 F Pulse Rate 60 60 60 Respiratory Rate 14 14 14 Blood Pressure 156/70 H 161/72 H Pulse Oximetry 100 100 100 08/24/17 04:30 08/24/17 05:00 08/24/17 05:30 Temperature Pulse Rate 60 60 60 Respiratory Rate 14 14 14 Blood Pressure 166/70 H 152/67 H 141/63 H Pulse Oximetry 100 100 100 08/24/17 06:00 08/24/17 06:30 08/24/17 06:36 Temperature Pulse Rate 60 60 60 Respiratory Rate 14 14 14 Blood Pressure 113/55 L 175/77 H 167/74 H Pulse Oximetry 100 100 100 08/24/17 07:00 08/24/17 07:30 08/24/17 08:00 Temperature 98.1 F Pulse Rate 60 60 60 Respiratory Rate 15 15 14 Blood Pressure 167/73 H 168/72 H 172/72 H Pulse Oximetry 100 100 100 08/24/17 08:30 08/24/17 08:47 08/24/17 09:00 Temperature Pulse Rate 60 60 Respiratory Rate 14 8 L 11 L Blood Pressure 165/73 H 169/75 H Pulse Oximetry 100 100 100 Intake & Output 08/23/17 08/24/17 08/24/17 18:59 06:59 18:59 Intake Total 1100 / 1100 1810 / 1810 1000 / 1000 Output Total 904 / 904 150 / 150 Balance 196 / 196 1660 / 1660 1000 / 1000 Weight 83.5 kg Intake: IV 1100 / 1100 1750 / 1750 1000 / 1000 Cordarone Inj 450 MG In D5W Inj 250 / 250 241 ML @ 1 MG/MIN 33.33 mls/hr IV.CONT .Q7H31M MARC Rx#: [id number] Lidocaine/D5W 2000 mg/500 mL 500 / 500 Premix Inj 2,000 mg In 500 ml @ 2 MG/MIN 30 mls/hr IV.CONT . [id number] MARC Rx#:[id number] NS Inj 1,000 ML @ 70 mls/hr IV. 1000 / 1000 1000 / 1000 1000 / 1000 CONT .[id number] MARC Rx#:[id number] KCl 10 mEq Premix Inj 10 meq In 100 / 100 100 ml @ 100 mls/hr IV.SIG Q1H MARC Rx#:[id number] Water Bolus Amount 60 / 60 Output: Urine 0 / 0 150 / 150 Peritoneal Amount 904 / 904 Other: Date of Last Bowel Movement 08/24/17 08/24/17 # Bowel Movements 2 - Constitutional Comments: intubated, sedated. - Routine HEENT Exam Head: Present: normocephalic Eye: Present: EOMI - Routine Neck Exam Present: supple. Absent: JVD, thyromegaly - Routine Respiratory Exam Comments: vented breath sounds heard bilaterally. - Routine Cardiovascular Exam Present: S1, S2 - Routine Abdominal Exam Present: soft, normoactive bowel sounds Assessment and Plan - Assessment (1) End stage renal disease Code(s): N18.6 - End stage renal disease Status: Deleted Plan: Continue nightly PD. His regimen consists of 11 hours, 6 cycles, 2500 ml fill volume, no last fill. Monitor fluid status and electrolytes intermittently. Replace phosphorus PO, not on binders currently. Avoid excess IVF administration. Gadolinium in contraindicated. Midodrine if needed for hypotension. (2) Cardiac syncope Code(s): R55 - Syncope and collapse Status: Deleted Plan: Seen by cardiology. s/p AICD placement. On Amiodarone and lidocaine. Now on the ventilator. (3) Anemia associated with chronic renal failure Code(s): D63.1 - Anemia in chronic kidney disease Status: Acute Plan: No evidence of iron deficiency. Another dose of Epogen today. (4) History of CVA (cerebrovascular accident) Code(s): Z86.73 - Personal history of transient ischemic attack (TIA), and cerebral infarction without residual deficits Status: Deleted Plan: Received alteplase. Neurology managing.
[2017-08-24 11:31] LABS: Baso % (Auto) 0.2 % (0.0-2.0); Eos # (Auto) 0.2 th/mm3 (0.0-0.4); Eos % (Auto) 2.3 % (0.0-4.0); Hematocrit 21.7 % (39.0-51.0); Hemoglobin 7.3 gm/dL (13.0-17.0); Lymph # (Auto) 0.4 th/mm3 (1.0-4.8); Lymph % (Auto) 5.7 % (9.0-44.0); Mean Corpuscular HGB Conc 33.6 % (32.0-36.0); Mean Platelet Volume 7.8 fL (7.0-11.0); Mono # (Auto) 0.7 th/mm3 (0.0-0.9); Mono % (Auto) 9.6 % (0.0-8.0); Neut # (Auto) 6.2 th/mm3 (1.8-7.7); Neut % (Auto) 82.2 % (16.0-70.0); Platelet Count 120 th/mm3 (150-450); Red Blood Count 2.21 mil/mm3 (4.50-5.90); Red Cell Distribution Width 14.6 % (11.6-17.2); White Blood Count 7.5 th/mm3 (4.0-11.0)
--- NOTE | 2017-08-24 12:23 | ECG ---
Date Performed: 08/22/2017 Time Performed: 09:02:39 PTAGE: 82 years EKG: ELECTRONIC ATRIAL PACEMAKER ANTEROLATERAL MYOCARDIAL INFARCTION , OF INDETERMINATE AGE ABNO RMAL ECG PREVIOUS TRACING : 08/19/2017 11.27 DOCTOR: Curry Brennan Interpretating Date/Time 08/24/2017 12:11:15
[2017-08-24] MEDS: Polyethylene Glycol 3350 17 GM Packet PO SCH ×2 (12:25→21:45)
--- NOTE | 2017-08-24 12:25 | ECG ---
Date Performed: 08/22/2017 Time Performed: 02:04:14 PTAGE: 82 years EKG: Sinus bradycardia. Septal ST-T changes are nonspecific Borderline ECG NO PREVIOUS TRACING DOCTOR: Curry Brennan Interpretating Date/Time 08/24/2017 12:12:20
--- NOTE | 2017-08-24 12:50 | P.PNCC ---
Subjective Subjective Remarks/Hospital Course: Patient is an 82-year-old male with a past medical history of hypertension, obstructive sleep apnea, COPD, history of CVA, end-stage renal disease on peritoneal dialysis who was recently admitted to [facility] from 05/21/17 to for respiratory failure. He was brought into the emergency department today for multiple episodes of syncope. EMS strips showed several episodes of nonsustained V. tach. In the emergency department patient had a single episode of sustained V. tach, up to 54 seconds, with loss of consciousness. Pads were placed for emergency defibrillation however prior to defibrillation patient regained sinus rhythm and consciousness. Patient was given 150 mg amiodarone bolus IV, followed by amiodarone infusion. Dr. Leong from cardiology was consulted. I evaluated the patient in the emergency department. Patient is lying in bed denies chest pain. He has sinus bradycardia. I reviewed the EMS EKG strips, and the EKG done in the ED. He has sinus bradycardia, and prolonged QT interval. I discussed with Dr. Leong, we will continue amiodarone as this time as the patient responded to amiodarone. Patient will need serial cardiac enzymes, 2D echo, evaluate for AICD placement. Home medications of Midrin and propantheline will be held due to arrhythmias. Dr. Leong will evaluate for AICD placement 08/20: Overnight, 3 minute long episodes of V. tach with intermittent loss of conscious. CPR initiated with chest compressions 3 minutes. Defibrillator with 200 J. Rebolus with amiodarone 150 mg at 1040. Patient still intermittently in V. tach/bradycardic rhythm. Rebolus with 150 mg of amiodarone and currently on amiodarone drip at 1 mg/min. Lidocaine will be the next choice. Currently resting in bed and appears comfortable despite the ongoing unstable rhythm 08/21 Patient went into Vtach/vfib overnight AICD fired x 4 started now on Amio and Lidocaine drips. Afebrile. Awake and alert. 08/22: Afebrile. Last seen normal state of health at 0600. At 606 40, already noticed patient gurgling. A phasic. Both hands were at throat. Able to squeeze bilateral hands/reflexes. Moving left upper extremity spontaneously. No response bilateral lower extremities. Patient emergently intubated and sent for CT brain. Stroke alert was called and Dr. Marin notified. Attempting to notify Dr. Leong. Subjective 08/23: On route to CT brain status post 24 hours alteplase patient went to an unstable rhythm likely V. fib after which she received a shock back into normal sinus rhythm. Currently awake and alert and following commands. Lidocaine drip restarted. Cardiology to be notified. 08/24 Patient remain intubated, off sedation. Afebrile. Objective Vital Signs / I&O: Vital Signs 08/23/17 14:30 08/23/17 14:45 08/23/17 15:00 Temperature Pulse Rate 60 60 60 Respiratory Rate 21 14 14 Blood Pressure 107/50 L 104/47 L Pulse Oximetry 99 100 100 08/23/17 15:15 08/23/17 15:30 08/23/17 15:45 Temperature Pulse Rate 60 60 60 Respiratory Rate 14 14 21 Blood Pressure 114/54 L 120/53 L 121/53 L Pulse Oximetry 100 100 98 08/23/17 16:00 08/23/17 16:15 08/23/17 17:12 Temperature Pulse Rate 60 60 60 Respiratory Rate 18 16 18 Blood Pressure 126/56 L 129/58 L Pulse Oximetry 97 96 100 08/23/17 17:30 08/23/17 17:41 08/23/17 17:45 Temperature Pulse Rate 60 60 60 Respiratory Rate 15 15 17 Blood Pressure 124/58 L 129/58 L Pulse Oximetry 100 100 100 08/23/17 18:00 08/23/17 18:15 08/23/17 18:30 Temperature Pulse Rate 60 60 60 Respiratory Rate 15 14 14 Blood Pressure 127/58 L 125/56 L 125/56 L Pulse Oximetry 100 100 100 08/23/17 18:45 08/23/17 19:00 08/23/17 19:15 Temperature Pulse Rate 60 60 60 Respiratory Rate 16 15 14 Blood Pressure 127/57 L 132/60 125/56 L Pulse Oximetry 100 100 100 08/23/17 19:30 08/23/17 19:45 08/23/17 20:00 Temperature 98.8 F Pulse Rate 60 60 60 Respiratory Rate 23 14 16 Blood Pressure 129/57 L 132/59 L 127/58 L Pulse Oximetry 96 100 100 08/23/17 20:15 08/23/17 20:30 08/23/17 20:45 Temperature Pulse Rate 60 60 60 Respiratory Rate 14 14 47 H Blood Pressure 132/57 L 130/58 L 124/55 L Pulse Oximetry 100 100 100 08/23/17 20:56 08/23/17 21:00 08/23/17 21:15 Temperature Pulse Rate 60 60 60 Respiratory Rate 19 20 15 Blood Pressure 132/82 140/63 Pulse Oximetry 99 100 100 08/23/17 21:30 08/23/17 21:31 08/23/17 21:45 Temperature Pulse Rate 60 60 60 Respiratory Rate 15 17 14 Blood Pressure 133/59 L 130/60 Pulse Oximetry 100 100 100 08/23/17 22:00 08/23/17 22:02 08/23/17 22:15 Temperature Pulse Rate 60 60 60 Respiratory Rate 17 24 15 Blood Pressure 124/58 L 131/60 Pulse Oximetry 100 100 100 08/23/17 22:30 08/23/17 22:45 08/23/17 23:00 Temperature Pulse Rate 60 60 60 Respiratory Rate 15 14 14 Blood Pressure 134/62 143/59 H 131/60 Pulse Oximetry 99 100 100 08/23/17 23:15 08/23/17 23:30 08/23/17 23:46 Temperature Pulse Rate 60 60 60 Respiratory Rate 16 14 14 Blood Pressure 136/59 L 141/57 H 134/62 Pulse Oximetry 100 100 100 08/24/17 00:00 08/24/17 00:11 08/24/17 00:15 Temperature 98.4 F Pulse Rate 60 60 60 Respiratory Rate 18 15 15 Blood Pressure 140/65 139/62 Pulse Oximetry 100 100 100 08/24/17 00:30 08/24/17 00:46 08/24/17 01:00 Temperature Pulse Rate 60 60 60 Respiratory Rate 16 21 19 Blood Pressure 132/58 L 127/58 L Pulse Oximetry 99 99 99 08/24/17 01:01 08/24/17 01:13 08/24/17 01:15 Temperature Pulse Rate 60 60 60 Respiratory Rate 20 23 21 Blood Pressure 90/37 L 143/57 H 157/70 H Pulse Oximetry 100 100 100 08/24/17 01:30 08/24/17 02:00 08/24/17 02:30 Temperature Pulse Rate 60 60 60 Respiratory Rate 14 20 15 Blood Pressure 156/65 H 156/69 H 159/67 H Pulse Oximetry 100 100 97 08/24/17 03:00 08/24/17 03:30 08/24/17 03:57 Temperature Pulse Rate 60 60 60 Respiratory Rate 14 14 14 Blood Pressure 152/68 H 156/70 H Pulse Oximetry 100 100 100 08/24/17 04:00 08/24/17 04:30 08/24/17 05:00 Temperature 98.8 F Pulse Rate 60 60 60 Respiratory Rate 14 14 14 Blood Pressure 161/72 H 166/70 H 152/67 H Pulse Oximetry 100 100 100 08/24/17 05:30 08/24/17 06:00 08/24/17 06:30 Temperature Pulse Rate 60 60 60 Respiratory Rate 14 14 14 Blood Pressure 141/63 H 113/55 L 175/77 H Pulse Oximetry 100 100 100 08/24/17 06:36 08/24/17 07:00 08/24/17 07:30 Temperature Pulse Rate 60 60 60 Respiratory Rate 14 15 15 Blood Pressure 167/74 H 167/73 H 168/72 H Pulse Oximetry 100 100 100 08/24/17 08:00 08/24/17 08:30 08/24/17 08:47 Temperature 98.1 F Pulse Rate 60 60 Respiratory Rate 14 14 8 L Blood Pressure 172/72 H 165/73 H Pulse Oximetry 100 100 100 08/24/17 09:00 08/24/17 12:04 Temperature Pulse Rate 60 Respiratory Rate 11 L 14 Blood Pressure 169/75 H Pulse Oximetry 100 100 Intake & Output 08/23/17 08/24/17 08/24/17 18:59 06:59 18:59 Intake Total 1100 / 1100 1810 / 1810 1000 / 1000 Output Total 904 / 904 150 / 150 Balance 196 / 196 1660 / 1660 1000 / 1000 Weight 83.5 kg Intake: IV 1100 / 1100 1750 / 1750 1000 / 1000 Cordarone Inj 450 MG In D5W Inj 250 / 250 241 ML @ 1 MG/MIN 33.33 mls/hr IV.CONT .[id number] [facility] Rx#: [id number] Lidocaine/D5W 2000 mg/500 mL 500 / 500 Premix Inj 2,000 mg In 500 ml @ 2 MG/MIN 30 mls/hr IV.CONT . [id number] [facility] Rx#:[id number] NS Inj 1,000 ML @ 70 mls/hr IV. 1000 / 1000 1000 / 1000 1000 / 1000 CONT .[id number] [facility] Rx#:[id number] KCl 10 mEq Premix Inj 10 meq In 100 / 100 100 ml @ 100 mls/hr IV.SIG Q1H [facility] Rx#:[id number] Water Bolus Amount 60 / 60 Output: Urine 0 / 0 150 / 150 Peritoneal Amount 904 / 904 Other: Date of Last Bowel Movement 08/24/17 08/24/17 # Bowel Movements 2 Result Diagrams: 08/24/17 10:35 08/24/17 07:12 Other Results: Abnormal Lab Results 08/23/17 08/23/17 08/24/17 16:29 17:38 00:26 WBC RBC Hgb Hct MCV MCH MCHC RDW Plt Count MPV Neut % (Auto) Lymph % (Auto) [place] % (Auto) Eos % (Auto) Baso % (Auto) Neut # (Auto) Lymph # (Auto) [place] # (Auto) Eos # (Auto) Baso # (Auto) WBC Differential Differential Comment Sodium Potassium 3.9 Chloride Carbon Dioxide Anion Gap BUN Creatinine Estimated GFR POC Glucose 104 104 Random Glucose Calcium Phosphorus Magnesium Total Bilirubin AST ALT Alkaline Phosphatase Total Protein Albumin 08/24/17 08/24/17 08/24/17 06:17 07:12 10:35 WBC 7.5 RBC 2.21 L Hgb 7.3 L Hct 21.7 L MCV 98.0 MCH 33.0 MCHC 33.6 RDW 14.6 Plt Count 120 L MPV 7.8 Neut % (Auto) 82.2 H Lymph % (Auto) 5.7 L [place] % (Auto) 9.6 H Eos % (Auto) 2.3 Baso % (Auto) 0.2 Neut # (Auto) 6.2 Lymph # (Auto) 0.4 L [place] # (Auto) 0.7 Eos # (Auto) 0.2 Baso # (Auto) 0.0 WBC Differential . Differential Comment Auto diff final Sodium 135 L Potassium 3.6 Chloride 100 Carbon Dioxide 21.4 Anion Gap 14 BUN 27 H Creatinine 6.20 H Estimated GFR 9 L POC Glucose 134 H Random Glucose 99 Calcium 7.7 L Phosphorus 2.6 Magnesium 2.4 Total Bilirubin 0.3 AST 18 ALT Less than 6 L Alkaline Phosphatase 42 L Total Protein 5.2 L Albumin 2.4 L 08/24/17 11:17 WBC RBC Hgb Hct MCV MCH MCHC RDW Plt Count MPV Neut % (Auto) Lymph % (Auto) [place] % (Auto) Eos % (Auto) Baso % (Auto) Neut # (Auto) Lymph # (Auto) [place] # (Auto) Eos # (Auto) Baso # (Auto) WBC Differential Differential Comment Sodium Potassium Chloride Carbon Dioxide Anion Gap BUN Creatinine Estimated GFR POC Glucose 123 H Random Glucose Calcium Phosphorus Magnesium Total Bilirubin AST ALT Alkaline Phosphatase Total Protein Albumin Imaging: Chest X-Ray 08/22/17 00:00 CONCLUSION: Interval intubation with endotracheal tube appropriate in position. Improved aeration of the lungs with persistent left lower lobe airspace consolidation/ atelectasis or small pleural fluid. Head CTA 08/22/17 00:00 CONCLUSION: 1. Negative CTA Head. Neck CTA 08/22/17 00:00 CONCLUSION: 1. Negative CTA Carotid. Head CT 08/23/17 10:00 CONCLUSION: No evidence of acute intracranial pathology. No masses are identified. Old left -sided infarcts as above Objective Remarks: GENERAL: 82-year-old male currently resting in bed orotracheally intubated SKIN: Warm and dry. No DTIs HEAD: Atraumatic. Normocephalic. EYES: Pupils equal and round. No scleral icterus. No injection or drainage. ENT: No nasal bleeding or discharge. Mucous membranes pink and moist. NECK: Trachea midline. No JVD. CARDIOVASCULAR: Irregularly irregular. S1, S2 no S4. Currently without murmur. RESPIRATORY: No accessory muscle use. Clear to auscultation. Breath sounds equal bilaterally. GASTROINTESTINAL: Abdomen soft, non-tender, nondistended. Hepatic and splenic margins not palpable. Peritoneal catheters placed and clean dry and intact MUSCULOSKELETAL: Extremities with trace upper and lower extremity. Chronic venous stasis bilateral lower extremities with multiple dried scabs. NEUROLOGICAL: Prior to intubation, aphasic. No facial droop was noted. Cranial nerves II through XII appear to be grossly intact. Moves all 4 extremities spontaneously. Sensation intact. Assessment and Plan - Assessment and Plan Plan: NEURO/PSYCH: Altered mental status- resolved History of bilateral occipital/left cerebellar CVA Major depressive disorder NOS Glaucoma Seizure disorder NOS Acute altered mental status Monitor neuro status. off sedation Stroke alert called. Dr. Marin consultation appreciated. Received alteplase Stat CT brain 08/22 revealed old left parietal CVA. No acute findings CT A brain revealed no acute findings CTA neck revealed no acute findings EEG revealed no epileptiform activity Repeat CT brain 08/23: No acute findings Acetaminophen 650 mg a mouth every 6 hours as needed pain 1 through 10/fever Continue travoprost 0.004% 1 drop each eye at night Holding mirtazapine 15 mg at night/home medication for depression. Resume when/ if clinically indicated RESP: Acute respiratory failure secondary to AMS [facility] 14/02/14/39 Ventilator bundle -Albuterol/ipratropium aerosols every 4 hours with albuterol aerosols every 2 hours as needed for dyspnea Spontaneous breathing trial/CPAP trials as [place] CV: Sustained ventricular tachycardia Sinus bradycardia History of atrial fibrillation Elevated troponin Cardiology is following Dr. Leong , s/p AICD placement 08/20 -Continue Amiodarone at 0.5 mg/min and Lidocaine drips and 1 mg/min for V. tach. Dr. Brennan is consulted -Carvedilol 6.25mg BID, Plavix 75mg daily- Dr. Leong Continue aspirin 81 mg daily Echo 08/20 showed EF 35-40% 2D echocardiogram 02/26 revealed mild concentric left ventricular hypertrophy. The left ventricular systolic function is normal with an estimated ejection fraction in the range of 55-60%. Mild TR. The estimated pulmonary arterial pressure is 40 mmHg. Continue atorvastatin 80 mg at night. Holding Midodrine 10 mg twice daily Troponin is currently downward trending. GI: Hypoalbuminemia Low total protein Peptic ulcer disease Start tube feeds- Nepro with goal rate 40ml/hr Lansoprazole 30 mg mg by mouth daily - Holding propantiene 50 mg daily for PUD Docusate sodium/senna 1 tablet twice daily for bowel regimen Adding lactulose 30 cc daily and polythene glycol 17 g twice daily for bowel regimen RENAL/FEN/: End-stage renal disease on peritoneal hemodialysis Hypermagnesia Hyponatremia Hypopotassemia Renal osteodystrophy Monitor renal function, I/O's, avoid nephrotoxins -Patient states he has [facility] [employer] is Dr. Osman Long Renal is following Continue calcitriol 0.25 mcg daily d/c IVF ID: History of C. difficile -Monitor closely for signs of infection(Fever, WBC) HEME: Normocytic anemia -Monitor CBC, CMP, coags ENDO: Sliding scale insulin with Accu-Cheks to maintain euglycemia/aspart every 6 hours low regimen. TSH 1.85 MSK: PT evaluate and treat PROPH: -Bilateral lower extremity SCDs. Heparin subcu, lansoprazole LINES: -Utilize peripheral IVs, Level 3
[2017-08-24] MEDS: Labetalol HCl Inj 100 MG/20 ML Vial IV.PUSH PRN (15:37)
[2017-08-24] MEDS: Morphine Inj 4 MG/ML Vial IV.PUSH PRN (16:26)
[2017-08-24] MEDS: Latanoprost 0.005% Opth Drops 2.5 ML Bottle EACH EYE SCH (21:48)
[2017-08-24] MEDS: Carvedilol 6.25 MG Tablet PO SCH (21:49)
[2017-08-25] MEDS: Insulin NovoLOG Aspart Correctional Sugar Inj SQ SCH ×4 (00:24→21:50)
[2017-08-25] MEDS: Oral Hygiene Kit OROPHARYNG SCH ×4 (00:24→18:25)
[2017-08-25 04:24] LABS: Baso % (Auto) 0.3 % (0.0-2.0); Eos # (Auto) 0.1 th/mm3 (0.0-0.4); Eos % (Auto) 1.4 % (0.0-4.0); Hematocrit 24.5 % (39.0-51.0); Hemoglobin 8.3 gm/dL (13.0-17.0); Lymph # (Auto) 0.5 th/mm3 (1.0-4.8); Lymph % (Auto) 5.4 % (9.0-44.0); Mean Corpuscular HGB Conc 33.7 % (32.0-36.0); Mean Corpuscular Hemoglobin 33.2 pg (27.0-34.0); Mean Corpuscular Volume 98.6 fL (80.0-100.0); Mean Platelet Volume 7.6 fL (7.0-11.0); Mono % (Auto) 11.7 % (0.0-8.0); Neut # (Auto) 7.3 th/mm3 (1.8-7.7); Neut % (Auto) 81.2 % (16.0-70.0); Platelet Count 170 th/mm3 (150-450); Red Blood Count 2.48 mil/mm3 (4.50-5.90); Red Cell Distribution Width 14.8 % (11.6-17.2); White Blood Count 8.9 th/mm3 (4.0-11.0)
[2017-08-25 04:41] LABS: Albumin 2.4 g/dL (3.4-5.0); Anion Gap 14 meq/L (5-15); Aspartate Aminotransferase 15 U/L (15-37); Blood Urea Nitrogen 25 mg/dL (7-18); Calcium 7.9 mg/dL (8.5-10.1); Carbon Dioxide 19.6 meq/L (21.0-32.0); Chloride 99 meq/L (98-107); Glomerular Filtration Rate 9 mL/min (>89); Glucose,Random 123 mg/dL (74-106); Potassium 3.3 meq/L (3.5-5.1); Sodium 133 meq/L (136-145)
[2017-08-25 04:43] LABS: Alkaline Phosphatase 48 U/L (45-117); Total Protein 5.6 g/dL (6.4-8.2)
--- NOTE | 2017-08-25 07:35 | P.PNCC ---
Subjective Subjective Remarks/Hospital Course: Patient is an 82-year-old male with a past medical history of hypertension, obstructive sleep apnea, COPD, history of CVA, end-stage renal disease on peritoneal dialysis who was recently admitted to [facility] from 05/21/17 to for respiratory failure. He was brought into the emergency department today for multiple episodes of syncope. EMS strips showed several episodes of nonsustained V. tach. In the emergency department patient had a single episode of sustained V. tach, up to 54 seconds, with loss of consciousness. Pads were placed for emergency defibrillation however prior to defibrillation patient regained sinus rhythm and consciousness. Patient was given 150 mg amiodarone bolus IV, followed by amiodarone infusion. Dr. Leong from cardiology was consulted. I evaluated the patient in the emergency department. Patient is lying in bed denies chest pain. He has sinus bradycardia. I reviewed the EMS EKG strips, and the EKG done in the ED. He has sinus bradycardia, and prolonged QT interval. I discussed with Dr. Leong, we will continue amiodarone as this time as the patient responded to amiodarone. Patient will need serial cardiac enzymes, 2D echo, evaluate for AICD placement. Home medications of Midrin and propantheline will be held due to arrhythmias. Dr. Leong will evaluate for AICD placement 08/20: Overnight, 3 minute long episodes of V. tach with intermittent loss of conscious. CPR initiated with chest compressions 3 minutes. Defibrillator with 200 J. Rebolus with amiodarone 150 mg at 1040. Patient still intermittently in V. tach/bradycardic rhythm. Rebolus with 150 mg of amiodarone and currently on amiodarone drip at 1 mg/min. Lidocaine will be the next choice. Currently resting in bed and appears comfortable despite the ongoing unstable rhythm 08/21 Patient went into Vtach/vfib overnight AICD fired x 4 started now on Amio and Lidocaine drips. Afebrile. Awake and alert. 08/22: Afebrile. Last seen normal state of health at 0600. At 606 40, already noticed patient gurgling. A phasic. Both hands were at throat. Able to squeeze bilateral hands/reflexes. Moving left upper extremity spontaneously. No response bilateral lower extremities. Patient emergently intubated and sent for CT brain. Stroke alert was called and Dr. Marin notified. Attempting to notify Dr. Leong. Subjective 08/23: On route to CT brain status post 24 hours alteplase patient went to an unstable rhythm likely V. fib after which she received a shock back into normal sinus rhythm. Currently awake and alert and following commands. Lidocaine drip restarted. Cardiology to be notified. 08/24 Patient remain intubated, off sedation. Afebrile. 08/25: new altered mental status. ?seizure like activity. no VT/VF. Objective Vital Signs / I&O: Vital Signs 08/24/17 07:30 08/24/17 08:00 08/24/17 08:30 Temperature 36.7 C Pulse Rate 60 60 60 Respiratory Rate 15 14 14 Blood Pressure 168/72 H 172/72 H 165/73 H Pulse Oximetry 100 100 100 08/24/17 08:47 08/24/17 09:00 08/24/17 09:30 Temperature Pulse Rate 60 60 Respiratory Rate 8 L 11 L 17 Blood Pressure 169/75 H 165/71 H Pulse Oximetry 100 100 100 08/24/17 10:00 08/24/17 10:30 08/24/17 11:00 Temperature Pulse Rate 60 60 60 Respiratory Rate 9 L 10 L 17 Blood Pressure 146/68 H 166/73 H 172/74 H Pulse Oximetry 100 100 100 08/24/17 11:30 08/24/17 11:39 08/24/17 12:00 Temperature Pulse Rate 60 60 60 Respiratory Rate 18 15 14 Blood Pressure 183/76 H 178/75 H 167/74 H Pulse Oximetry 100 100 100 08/24/17 12:04 08/24/17 12:30 08/24/17 13:00 Temperature Pulse Rate 60 60 Respiratory Rate 14 14 17 Blood Pressure 197/79 H Pulse Oximetry 100 99 100 08/24/17 13:01 08/24/17 13:30 08/24/17 14:00 Temperature Pulse Rate 60 60 60 Respiratory Rate 17 14 14 Blood Pressure 152/67 H 178/77 H 151/67 H Pulse Oximetry 100 100 100 08/24/17 14:30 08/24/17 15:00 08/24/17 15:01 Temperature Pulse Rate 60 60 60 Respiratory Rate 14 19 16 Blood Pressure 130/61 192/81 H Pulse Oximetry 99 99 100 08/24/17 15:22 08/24/17 15:30 08/24/17 15:45 Temperature Pulse Rate 60 60 60 Respiratory Rate 15 14 17 Blood Pressure 187/78 H 183/81 H 190/73 H Pulse Oximetry 99 100 100 08/24/17 15:46 08/24/17 16:00 08/24/17 16:05 Temperature Pulse Rate 60 60 Respiratory Rate 17 15 14 Blood Pressure 184/83 H 181/66 H Pulse Oximetry 100 100 100 08/24/17 16:08 08/24/17 16:16 08/24/17 16:30 Temperature Pulse Rate 60 60 60 Respiratory Rate 14 18 15 Blood Pressure 163/69 H 178/79 H Pulse Oximetry 100 100 08/24/17 16:45 08/24/17 17:00 08/24/17 17:15 Temperature 36.8 C Pulse Rate 60 60 60 Respiratory Rate 14 14 14 Blood Pressure 160/61 H 149/67 H 137/65 Pulse Oximetry 100 100 100 08/24/17 17:30 08/24/17 17:45 08/24/17 18:00 Temperature Pulse Rate 60 60 60 Respiratory Rate 14 14 14 Blood Pressure 134/58 L 133/60 142/66 H Pulse Oximetry 100 100 100 08/24/17 18:15 08/24/17 18:30 08/24/17 18:45 Temperature Pulse Rate 60 60 60 Respiratory Rate 14 14 14 Blood Pressure 147/68 H 154/71 H 154/65 H Pulse Oximetry 100 100 100 08/24/17 19:00 08/24/17 19:15 08/24/17 19:30 Temperature Pulse Rate 60 60 60 Respiratory Rate 14 14 14 Blood Pressure 149/67 H 146/67 H 145/67 H Pulse Oximetry 100 99 100 08/24/17 19:45 08/24/17 20:00 08/24/17 20:15 Temperature 36.8 C Pulse Rate 60 60 60 Respiratory Rate 14 21 14 Blood Pressure 143/67 H 140/67 171/75 H Pulse Oximetry 100 100 100 08/24/17 20:30 08/24/17 20:45 08/24/17 21:00 Temperature Pulse Rate 60 60 60 Respiratory Rate 14 17 14 Blood Pressure 165/71 H 164/73 H 148/59 H Pulse Oximetry 100 100 100 08/24/17 21:15 07/16/18 21:30 08/24/17 21:45 Temperature Pulse Rate 60 60 60 Respiratory Rate 14 14 14 Blood Pressure 143/65 H 147/69 H 153/71 H Pulse Oximetry 99 98 99 08/24/17 22:00 08/24/17 22:15 08/24/17 22:30 Temperature Pulse Rate 60 60 60 Respiratory Rate 14 14 14 Blood Pressure 150/70 H 155/73 H 150/70 H Pulse Oximetry 99 99 98 08/24/17 22:45 08/24/17 23:00 08/24/17 23:15 Temperature Pulse Rate 60 60 60 Respiratory Rate 14 15 15 Blood Pressure 150/71 H 151/67 H 153/71 H Pulse Oximetry 98 98 99 08/24/17 23:30 08/24/17 23:45 08/25/17 00:00 Temperature 36.8 C Pulse Rate 60 60 60 Respiratory Rate 14 22 14 Blood Pressure 152/70 H 152/59 H 151/67 H Pulse Oximetry 96 97 100 08/25/17 00:15 08/25/17 00:30 08/25/17 00:37 Temperature Pulse Rate 60 66 60 Respiratory Rate 14 18 17 Blood Pressure 148/64 H 142/66 H Pulse Oximetry 99 100 100 08/25/17 00:46 08/25/17 01:00 08/25/17 01:15 Temperature Pulse Rate 60 60 60 Respiratory Rate 15 15 14 Blood Pressure 152/65 H 145/66 H 140/65 Pulse Oximetry 98 99 100 08/25/17 01:30 08/25/17 01:45 08/25/17 02:00 Temperature Pulse Rate 60 60 60 Respiratory Rate 14 14 17 Blood Pressure 142/63 H 150/65 H 148/66 H Pulse Oximetry 97 98 97 08/25/17 02:15 08/25/17 02:30 08/25/17 02:45 Temperature Pulse Rate 60 60 60 Respiratory Rate 17 14 16 Blood Pressure 133/61 132/64 133/59 L Pulse Oximetry 97 98 100 08/25/17 03:00 08/25/17 03:15 08/25/17 03:30 Temperature Pulse Rate 60 60 60 Respiratory Rate 14 14 14 Blood Pressure 131/60 127/60 129/63 Pulse Oximetry 99 98 98 08/25/17 03:45 08/25/17 04:00 08/25/17 04:15 Temperature 37.0 C Pulse Rate 60 60 60 Respiratory Rate 14 17 14 Blood Pressure 141/65 H 142/65 H 135/58 L Pulse Oximetry 98 100 99 08/25/17 04:21 08/25/17 04:30 08/25/17 04:46 Temperature Pulse Rate 60 60 60 Respiratory Rate 20 18 16 Blood Pressure 145/62 H 159/69 H Pulse Oximetry 98 98 08/25/17 05:00 08/25/17 05:01 08/25/17 05:15 Temperature Pulse Rate 59 L 59 L 59 L Respiratory Rate 15 14 19 Blood Pressure 142/62 H 155/67 H Pulse Oximetry 98 98 97 08/25/17 05:31 08/25/17 05:45 08/25/17 06:00 Temperature Pulse Rate 60 60 60 Respiratory Rate 14 14 14 Blood Pressure 145/58 H 153/69 H 146/67 H Pulse Oximetry 99 99 97 08/25/17 06:15 08/25/17 06:30 Temperature Pulse Rate 60 60 Respiratory Rate 14 14 Blood Pressure 141/63 H 145/66 H Pulse Oximetry 95 95 Intake & Output 08/24/17 08/25/17 08/25/17 18:59 06:59 18:59 Intake Total 5 / 2025 1099 / 1099 Output Total 1020 / 1020 30 / 30 Balance 1005 / 1005 1069 / 1069 Weight 83 kg Intake: IV 1970 750 / 750 Cordarone Inj 450 MG In D5W Inj 491 / 491 250 / 250 241 ML @ 1 MG/MIN 33.33 mls/hr IV.CONT .Q7H31M MARC Rx#: [id number] Lidocaine/D5W 2000 mg/500 mL 500 / 500 Premix Inj 2,000 mg In 500 ml @ 2 MG/MIN 30 mls/hr IV.CONT . [id number] MARC Rx#:[id number] NS Inj 1,000 ML @ 70 mls/hr IV. 1480 / 1480 CONT .[id number] MARC Rx#:[id number] Tube Feeding 54 / 54 289 / 289 Water Bolus Amount 60 / 60 Output: Urine 25 / 25 30 / 30 Peritoneal Amount 995 / 995 Other: Date of Last Bowel Movement 08/24/17 08/24/17 # Bowel Movements 1 1 Result Diagrams: 08/25/17 03:47 08/25/17 03:47 Objective Remarks: GENERAL: 82-year-old male currently resting in bed orotracheally intubated SKIN: Warm and dry. No DTIs HEAD: Atraumatic. Normocephalic. EYES: Pupils equal and round. No scleral icterus. No injection or drainage. ENT: No nasal bleeding or discharge. Mucous membranes pink and moist. NECK: Trachea midline. No JVD. CARDIOVASCULAR: paced rhythm at 60. Currently without murmur. RESPIRATORY: No accessory muscle use. Clear to auscultation. Breath sounds equal bilaterally. GASTROINTESTINAL: Abdomen soft, non-tender, nondistended. Hepatic and splenic margins not palpable. Peritoneal catheters placed and clean dry and intact MUSCULOSKELETAL: Extremities with trace upper and lower extremity. Chronic venous stasis bilateral lower extremities with multiple dried scabs. NEUROLOGICAL: RASS -3. off sedation. not following commands. no w/d to pain. pupils deviated to the left, equal, 2mm, round, reactive. Assessment and Plan - Assessment and Plan Plan: Assessment: 82yM with recurrent VT s/p AICD, course complicated by new acute CVA , acute hypoxic respiratory failure, and now ? seizure activity and worsening of his mentation. stat head CT and EEG. will discuss with neuro risks/benefits of adding anticonvulsant therapy. will continue to need work-up for his VT including likely EP study. remains very critically ill with new neuro deficits and acute encephalopathy compounding his ongoing acute medical issues. NEURO/PSYCH: Acute encephalopathy- worsening Possible Seizures Acute CVA s/p systemic TPA 08/22 History of bilateral occipital/left cerebellar CVA Major depressive disorder NOS Glaucoma Seizure disorder NOS Monitor neuro status. off sedation Stroke alert called. Dr. Marin consultation appreciated. Received alteplase Stat CT brain 08/22 revealed old left parietal CVA. No acute findings CTA head and neck - negative. EEG revealed no epileptiform activity. will repeat today in light of new neuro changes Repeat CT brain 08/23: No acute findings Acetaminophen 650 mg a mouth every 6 hours as needed pain 1 through 10/fever Continue travoprost 0.004% 1 drop each eye at night Holding mirtazapine 15 mg at night/home medication for depression. Resume when/ if clinically indicated stat head CT. repeat EEG. re-engage neurology. RESP: Acute hypoxic and hypercarbic respiratory failure secondary to AMS PRVC 14525/02/14/39 Ventilator bundle -Albuterol/ipratropium aerosols every 4 hours with albuterol aerosols every 2 hours as needed for dyspnea No SBT today given new altered mentation. CV: Sustained ventricular tachycardia Sinus bradycardia History of atrial fibrillation Elevated troponin Cardiology is following Dr. Leong , s/p AICD placement 08/20 -Continue Amiodarone at 0.5 mg/min and Lidocaine drips and 1 mg/min for V. tach. Dr. Brennan is consulted -Carvedilol 6.25mg BID, Plavix 75mg daily- Dr. Leong Continue aspirin 81 mg daily Echo 08/20 showed EF 35-40% 2D echocardiogram 02/26 revealed mild concentric left ventricular hypertrophy. The left ventricular systolic function is normal with an estimated ejection fraction in the range of 55-60%. Mild TR. The estimated pulmonary arterial pressure is 40 mmHg. Continue atorvastatin 80 mg at night. Holding Midodrine 10 mg twice daily Troponin is currently downward trending. continue to allow Dr. Jones guide anti-arrhythmic therapy. will likely need EP study at some point this hospitalization. 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 difficile -Monitor closely for signs of infection(Fever, WBC) HEME: Normocytic anemia -Monitor CBC, CMP, coags ENDO: Sliding scale insulin with Accu-Cheks to maintain euglycemia/aspart every 6 hours low regimen. TSH 1.85 MSK: PT evaluate and treat PROPH: -Bilateral lower extremity SCDs. Heparin subcu, lansoprazole LINES: -Utilize peripheral IVs, OVERALL IMPRESSION: clinically worse. new encephalopathy. persistent hypoxemia, respiratory failure, cardiac electrical dysrhythmias- all life-threatening. critically ill. Critical care time: 35 minutes, exclusive of separately billable procedures.
[2017-08-25] MEDS: Senna/Docusate Sodium 8.6/50 MG Tablet PO SCH ×4 (08:09→21:43)
[2017-08-25] MEDS: Carvedilol 6.25 MG Tablet PO SCH ×3 (08:10→21:07)
[2017-08-25] MEDS: CALCITRIOL PO SCH ×2 (08:11→21:17)
[2017-08-25] MEDS: Hypromellose 0.3% Opth Gel 10 GM Bottle EACH EYE SCH ×6 (08:11→21:50)
[2017-08-25] MEDS: Polyethylene Glycol 3350 17 GM Packet PO SCH ×3 (08:22→21:47)
--- NOTE | 2017-08-25 08:38 | P.PNCA ---
Subjective Interval history: Intubated. Unresponsive. Physical Exam Vital signs: Vital Signs 08/24/17 08:47 08/24/17 09:00 08/24/17 09:30 Temperature Pulse Rate 60 60 Respiratory Rate 8 L 11 L 17 Blood Pressure 169/75 H 165/71 H Pulse Oximetry 100 100 100 08/24/17 10:00 08/24/17 10:30 08/24/17 11:00 Temperature Pulse Rate 60 60 60 Respiratory Rate 9 L 10 L 17 Blood Pressure 146/68 H 166/73 H 172/74 H Pulse Oximetry 100 100 100 08/24/17 11:30 08/24/17 11:39 08/24/17 12:00 Temperature Pulse Rate 60 60 60 Respiratory Rate 18 15 14 Blood Pressure 183/76 H 178/75 H 167/74 H Pulse Oximetry 100 100 100 08/24/17 12:04 08/24/17 12:30 08/24/17 13:00 Temperature Pulse Rate 60 60 Respiratory Rate 14 14 17 Blood Pressure 197/79 H Pulse Oximetry 100 99 100 08/24/17 13:01 08/24/17 13:30 08/24/17 14:00 Temperature Pulse Rate 60 60 60 Respiratory Rate 17 14 14 Blood Pressure 152/67 H 178/77 H 151/67 H Pulse Oximetry 100 100 100 08/24/17 14:30 08/24/17 15:00 08/24/17 15:01 Temperature Pulse Rate 60 60 60 Respiratory Rate 14 19 16 Blood Pressure 130/61 192/81 H Pulse Oximetry 99 99 100 08/24/17 15:22 08/24/17 15:30 08/24/17 15:45 Temperature Pulse Rate 60 60 60 Respiratory Rate 15 14 17 Blood Pressure 187/78 H 183/81 H 190/73 H Pulse Oximetry 99 100 100 08/24/17 15:46 08/24/17 16:00 08/24/17 16:05 Temperature Pulse Rate 60 60 Respiratory Rate 17 15 14 Blood Pressure 184/83 H 181/66 H Pulse Oximetry 100 100 100 08/24/17 16:08 08/24/17 16:16 08/24/17 16:30 Temperature Pulse Rate 60 60 60 Respiratory Rate 14 18 15 Blood Pressure 163/69 H 178/79 H Pulse Oximetry 100 100 08/24/17 16:45 08/24/17 17:00 08/24/17 17:15 Temperature 98.2 F Pulse Rate 60 60 60 Respiratory Rate 14 14 14 Blood Pressure 160/61 H 149/67 H 137/65 Pulse Oximetry 100 100 100 08/24/17 17:30 08/24/17 17:45 08/24/17 18:00 Temperature Pulse Rate 60 60 60 Respiratory Rate 14 14 14 Blood Pressure 134/58 L 133/60 142/66 H Pulse Oximetry 100 100 100 08/24/17 18:15 08/24/17 18:30 08/24/17 18:45 Temperature Pulse Rate 60 60 60 Respiratory Rate 14 14 14 Blood Pressure 147/68 H 154/71 H 154/65 H Pulse Oximetry 100 100 100 08/24/17 19:00 08/24/17 19:15 08/24/17 19:30 Temperature Pulse Rate 60 60 60 Respiratory Rate 14 14 14 Blood Pressure 149/67 H 146/67 H 145/67 H Pulse Oximetry 100 99 100 08/24/17 19:45 08/24/17 20:00 08/24/17 20:15 Temperature 98.3 F Pulse Rate 60 60 60 Respiratory Rate 14 21 14 Blood Pressure 143/67 H 140/67 171/75 H Pulse Oximetry 100 100 100 08/24/17 20:30 08/24/17 20:45 08/24/17 21:00 Temperature Pulse Rate 60 60 60 Respiratory Rate 14 17 14 Blood Pressure 165/71 H 164/73 H 148/59 H Pulse Oximetry 100 100 100 08/24/17 21:15 08/24/17 21:30 08/24/17 21:45 Temperature Pulse Rate 60 60 60 Respiratory Rate 14 14 14 Blood Pressure 143/65 H 147/69 H 153/71 H Pulse Oximetry 99 98 99 08/24/17 22:00 08/24/17 22:15 08/24/17 22:30 Temperature Pulse Rate 60 60 60 Respiratory Rate 14 14 14 Blood Pressure 150/70 H 155/73 H 150/70 H Pulse Oximetry 99 99 98 08/24/17 22:45 08/24/17 23:00 08/24/17 23:15 Temperature Pulse Rate 60 60 60 Respiratory Rate 14 15 15 Blood Pressure 150/71 H 151/67 H 153/71 H Pulse Oximetry 98 98 99 08/24/17 23:30 08/24/17 23:45 08/25/17 00:00 Temperature 98.2 F Pulse Rate 60 60 60 Respiratory Rate 14 22 14 Blood Pressure 152/70 H 152/59 H 151/67 H Pulse Oximetry 96 97 100 08/25/17 00:15 08/25/17 00:30 08/25/17 00:37 Temperature Pulse Rate 60 66 60 Respiratory Rate 14 18 17 Blood Pressure 148/64 H 142/66 H Pulse Oximetry 99 100 100 08/25/17 00:46 08/25/17 01:00 08/25/17 01:15 Temperature Pulse Rate 60 60 60 Respiratory Rate 15 15 14 Blood Pressure 152/65 H 145/66 H 140/65 Pulse Oximetry 98 99 100 08/25/17 01:30 08/25/17 01:45 08/25/17 02:00 Temperature Pulse Rate 60 60 60 Respiratory Rate 14 14 17 Blood Pressure 142/63 H 150/65 H 148/66 H Pulse Oximetry 97 98 97 08/25/17 02:15 08/25/17 02:30 08/25/17 02:45 Temperature Pulse Rate 60 60 60 Respiratory Rate 17 14 16 Blood Pressure 133/61 132/64 133/59 L Pulse Oximetry 97 98 100 08/25/17 03:00 08/25/17 03:15 08/25/17 03:30 Temperature Pulse Rate 60 60 60 Respiratory Rate 14 14 14 Blood Pressure 131/60 127/60 129/63 Pulse Oximetry 99 98 98 08/25/17 03:45 08/25/17 04:00 08/25/17 04:15 Temperature 98.6 F Pulse Rate 60 60 60 Respiratory Rate 14 17 14 Blood Pressure 141/65 H 142/65 H 135/58 L Pulse Oximetry 98 100 99 08/25/17 04:21 08/25/17 04:30 08/25/17 04:46 Temperature Pulse Rate 60 60 60 Respiratory Rate 20 18 16 Blood Pressure 145/62 H 159/69 H Pulse Oximetry 98 98 08/25/17 05:00 08/25/17 05:01 08/25/17 05:15 Temperature Pulse Rate 59 L 59 L 59 L Respiratory Rate 15 14 19 Blood Pressure 142/62 H 155/67 H Pulse Oximetry 98 98 97 08/25/17 05:31 08/25/17 05:45 08/25/17 06:00 Temperature Pulse Rate 60 60 60 Respiratory Rate 14 14 14 Blood Pressure 145/58 H 153/69 H 146/67 H Pulse Oximetry 99 99 97 08/25/17 06:15 08/25/17 06:30 08/25/17 08:00 Temperature 98.6 F Pulse Rate 60 60 60 Respiratory Rate 14 14 14 Blood Pressure 141/63 H 145/66 H 145/63 H Pulse Oximetry 95 95 99 08/25/17 08:27 Temperature Pulse Rate 61 Respiratory Rate 18 Blood Pressure Pulse Oximetry 100 Intake & Output 08/24/17 08/25/17 08/25/17 18:59 06:59 18:59 Intake Total 2024 / 2024 1099 / 1099 Output Total 1020 / 1020 30 / 30 Balance 1005 / 1005 1069 / 1069 Weight 83 kg Intake: IV 1970 / 1970 750 / 750 Cordarone Inj 450 MG In D5W Inj 491 / 491 250 / 250 241 ML @ 1 MG/MIN 33.33 mls/hr IV.CONT .Q7H31M MARC Rx#: [id number] Lidocaine/D5W 2000 mg/500 mL 500 / 500 Premix Inj 2,000 mg In 500 ml @ 2 MG/MIN 30 mls/hr IV.CONT . [id number] MARC Rx#:[id number] NS Inj 1,000 ML @ 70 mls/hr IV. 1480 / 1480 CONT .[id number] MARC Rx#:[id number] Tube Feeding 54 / 54 289 / 289 Water Bolus Amount 60 / 60 Output: Urine 25 / 25 30 / 30 Peritoneal Amount 995 / 995 Other: Date of Last Bowel Movement 08/24/17 08/24/17 # Bowel Movements 1 1 - Constitutional Comments: Intubated. Sedated. - Routine Neck Exam Absent: JVD - Routine Respiratory Exam Present: CTA bilaterally - Routine Cardiovascular Exam Present: RRR, S1, S2. Absent: murmur, gallop - Routine Abdominal Exam Present: soft, normoactive bowel sounds. Absent: organomegaly - Routine Extremities Exam Absent: cyanosis, clubbing, edema Assessment and Plan - Assessment (1) Sustained ventricular tachycardia Code(s): I47.2 - Ventricular tachycardia Status: Deleted Plan: Stable overnight. No further VT/VF. Remains on IV Amiodarone and IV lidocaine. Echo reviewed, agree EF 35-40%. EF on echo 08/16/17 at [facility] 55%. ? has myocarditis REC continue IV lido/IV amiodarone, consider change to oral Amiodarone/ mexiletine, oral carvedilol (increase dose) continue colchicine as per Dr. Brennan (2) Coronary artery disease Code(s): I25.10 - Atherosclerotic heart disease of [place] coronary artery without angina pectoris Status: Chronic Plan: Stable CAD status. No recent angina. Continue Plavix, aspirin. Nuclear stress test images from [facility] 08/17/17 reviewed; they are completely normal. (3) Cardiomyopathy Code(s): I42.9 - Cardiomyopathy, unspecified Status: Acute Plan: Echo this admission reviewed, agree EF reduced to ~35-40% with global hypokinesis. EF on echo 08/16/17 normal. Increase carvedilol. No SHAUNNA-I or ARB with CRI. (4) Paroxysmal atrial fibrillation Code(s): I48.0 - Paroxysmal atrial fibrillation Status: Acute Plan: Not well documented history of atrial fibrillation. Can track any future atrial fibrillation via ICD transmissions. Continue daily aspirin. Likely to remain on Amiodarone post discharge as well. - Plan Code Status: alternative code (2) Coronary artery disease Qualifiers: Coronary Disease-Associated Artery/Lesion type: [place] artery [place] vs. transplanted heart: [place] heart Associated angina: without angina Qualified Code(s): I25.10 - Atherosclerotic heart disease of [place] coronary artery without angina pectoris (3) Cardiomyopathy Qualifiers: Cardiomyopathy type: unspecified Qualified Code(s): I42.9 - Cardiomyopathy, unspecified
[2017-08-25] MEDS ORDERED: levETIRAcetam 1000mg/100mL Inj 100 ML IV.SIG ONE (09:00)
--- NOTE | 2017-08-25 09:55 | CT ---
EXAM DATE: 08/25/2017 9:52 AM EDT AGE/SEX: 82 years / Male INDICATIONS: Altered mental status CLINICAL DATA: This is the patient's subsequent encounter. Patient reports that signs and symptoms h ave been present for 3 days and indicates a pain score of Nonresponsive. MEDICAL/SURGICAL HISTORY: Cardiovascular disease. Hypertension. Cerebrovascular disease. Tonsille ctomy. RADIATION DOSE: 56.35 CTDI (mGy) COMPARISON: [facility] – [place] HEAD W/O CONTRAST, 08/23/2017. . TECHNIQUE: CT of the head without contrast. Using automated exposure control and adjustment of the mA and/or kV according to patient size, radiation dose was kept as low as reasonably achievable to ob tain optimal diagnostic quality images. DICOM format image data is available electronically for revi ew and comparison. FINDINGS: There is no evidence for intracranial hemorrhage, mass effect, mass lesions, or edema. The visualize d bony structures appear intact. Significant degree of brain atrophy is seen. Moderate to severe per iventricular white matter changes are seen nonspecific mostly consistent with chronic small vessel is chemic changes. There are no signs of acute infarction for technique. There is mild mucoperiosteal t hickening within some of the sinuses. CONCLUSION: Chronic small vessel ischemic and atrophic changes. Electronically signed by: Manuel Guzman MD 08/25/2017 9:54 AM EDT
[2017-08-25] MEDS ORDERED: Epoetin Alfa Inj 20,000 UNIT/ML Vial SQ ONE (09:57)
[2017-08-25 11:38] LABS: Magnesium 2.4 mg/dL (1.5-2.5); Phosphorus 3.3 mg/dL (2.5-4.9)
[2017-08-25] MEDS ORDERED: Fosphenytoin Inj 1,000 MGPE in Sodium Chlor 0.9% Inj 50 ML IV.SIG ONE (12:00)
--- NOTE | 2017-08-25 12:40 | P.DIET ---
Nutritional Evaluation Nutrition consult regarding: Tube Feeding Objective - Diagnosis Sustained VTAC - Objective % IBW: 113 Body Weight Used for Calculations: Actual (72.5kg) Energy Needs - Lower Range (kCal/kg): 28 Energy Needs - Upper Range (kCal/kg): 33 Lower Limit kCal/kg (kCals): 2,030 Upper Limit kCal/kg (kCals): 2,393 Lower Limit Protein Factor (Grams per Kg): 1.3 Upper Limit Protein Factor (Grams per Kg): 1.5 Lower Protein Needs (Protein): 94 Upper Protein Needs (Protein): 109 Dietitian Reviewed in Medical Record: Curent medications, Intake & Output, Labs , Medical history, Tube feeding Objective Comments: PMH: HTN, MIRELA, COPD, hx CVA, ESRD on PD, Afib, CAD, Depression Meds include: Lipitor, Calcitriol, Coreg, Lactulose Labs include: Hgb 8.3, Hct 24.5, Na 133, K+ 3.3, Cr 6.22, Glu 123 PD 995 mls removed, +1 BM Assessment Assessment: Pt at nutritional risk r/t dx and the need for a TF for nutrition support. Pt intubated, off all sedation, unresponsive. Pt with ESRD on Peritoneal Dialysis. Nutritional needs as assessed above. TF Nepro with goal rate 40 ml/hr per MD. To meet pt's nutritional needs, a goal rate of 50 ml/hr is necessary to provide 2160 kcals, 97 gms protein and 872 mls free water. Will monitor TF tolerance, clinical course. Recommendations: TF Nepro: a goal rate of 50 ml/hr is needed to meet pt's nutritional needs. Dietitian to Monitor: Lab values, Renal labs, Intake & Output, Tube feeding tolerance, Weight change, Medical course
--- NOTE | 2017-08-25 13:31 | MG ---
cc: Roney Shane MD DATE OF STUDY: 08/25/2017 EEG RECORD NUMBER: [id number] DESCRIPTION OF RECORD: Generalized slowing 2-4 Hz delta, 20-50 microvolts. Some symmetric right hemispheric slowing. Generalized seizure starting at epoch 25 with rapid rhythmic left theta activity followed by epileptiform discharges, stopped at epoch 30, followed by generalized delta activity. Recurrent brief seizure started with 5-6 Hz rhythmic theta activity, followed by a sharp high amplitude, alpha followed by very high amplitude sharp activity, multiple discharges per second, which tapered off to 1-3 discharges per second and ended at epoch 92 followed by generalized delta slowing. INTERPRETATION: Two electrographic short burst seizures, the second seizure appearing to emanate from the right frontotemporal region. Moderate to severe underlying encephalopathy. Clinical correlation. Roney Shane MD MG/HEAVEN , 01:15 PM , 01:29 PM
--- NOTE | 2017-08-25 15:25 | P.PN ---
Subjective Interval history: change in mentation s/p sz,.On keppra and Pht. possible myocarditis possible encephalitis. Physical Exam Vital signs: Vital Signs 08/24/17 15:22 08/24/17 15:30 08/24/17 15:45 Temperature Pulse Rate 60 60 60 Respiratory Rate 15 14 17 Blood Pressure 187/78 H 183/81 H 190/73 H Pulse Oximetry 99 100 100 08/24/17 15:46 08/24/17 16:00 08/24/17 16:05 Temperature Pulse Rate 60 60 Respiratory Rate 17 15 14 Blood Pressure 184/83 H 181/66 H Pulse Oximetry 100 100 100 08/24/17 16:08 08/24/17 16:16 08/24/17 16:30 Temperature Pulse Rate 60 60 60 Respiratory Rate 14 18 15 Blood Pressure 163/69 H 178/79 H Pulse Oximetry 100 100 08/24/17 16:45 08/24/17 17:00 08/24/17 17:15 Temperature 98.2 F Pulse Rate 60 60 60 Respiratory Rate 14 14 14 Blood Pressure 160/61 H 149/67 H 137/65 Pulse Oximetry 100 100 100 08/24/17 17:30 08/24/17 17:45 08/24/17 18:00 Temperature Pulse Rate 60 60 60 Respiratory Rate 14 14 14 Blood Pressure 134/58 L 133/60 142/66 H Pulse Oximetry 100 100 100 08/24/17 18:15 18 18:30 08/24/17 18:45 Temperature Pulse Rate 60 60 60 Respiratory Rate 14 14 14 Blood Pressure 147/68 H 154/71 H 154/65 H Pulse Oximetry 100 100 100 08/24/17 19:00 08/24/17 19:15 08/24/17 19:30 Temperature Pulse Rate 60 60 60 Respiratory Rate 14 14 14 Blood Pressure 149/67 H 146/67 H 145/67 H Pulse Oximetry 100 99 100 08/24/17 19:45 08/24/17 20:00 08/24/17 20:15 Temperature 98.3 F Pulse Rate 60 60 60 Respiratory Rate 14 21 14 Blood Pressure 143/67 H 140/67 171/75 H Pulse Oximetry 100 100 100 08/24/17 20:30 08/24/17 20:45 08/24/17 21:00 Temperature Pulse Rate 60 60 60 Respiratory Rate 14 17 14 Blood Pressure 165/71 H 164/73 H 148/59 H Pulse Oximetry 100 100 100 08/24/17 21:15 08/24/17 21:30 08/24/17 21:45 Temperature Pulse Rate 60 60 60 Respiratory Rate 14 14 14 Blood Pressure 143/65 H 147/69 H 153/71 H Pulse Oximetry 99 98 99 08/24/17 22:00 08/24/17 22:15 08/24/17 22:30 Temperature Pulse Rate 60 60 60 Respiratory Rate 14 14 14 Blood Pressure 150/70 H 155/73 H 150/70 H Pulse Oximetry 99 99 98 08/24/17 22:45 08/24/17 23:00 08/24/17 23:15 Temperature Pulse Rate 60 60 60 Respiratory Rate 14 15 15 Blood Pressure 150/71 H 151/67 H 153/71 H Pulse Oximetry 98 98 99 08/24/17 23:30 08/24/17 23:45 08/25/17 00:00 Temperature 98.2 F Pulse Rate 60 60 60 Respiratory Rate 14 22 14 Blood Pressure 152/70 H 152/59 H 151/67 H Pulse Oximetry 96 97 100 08/25/17 00:15 08/25/17 00:30 08/25/17 00:37 Temperature Pulse Rate 60 66 60 Respiratory Rate 14 18 17 Blood Pressure 148/64 H 142/66 H Pulse Oximetry 99 100 100 08/25/17 00:46 08/25/17 01:00 08/25/17 01:15 Temperature Pulse Rate 60 60 60 Respiratory Rate 15 15 14 Blood Pressure 152/65 H 145/66 H 140/65 Pulse Oximetry 98 99 100 08/25/17 01:30 08/25/17 01:45 08/25/17 02:00 Temperature Pulse Rate 60 60 60 Respiratory Rate 14 14 17 Blood Pressure 142/63 H 150/65 H 148/66 H Pulse Oximetry 97 98 97 08/25/17 02:15 08/25/17 02:30 08/25/17 02:45 Temperature Pulse Rate 60 60 60 Respiratory Rate 17 14 16 Blood Pressure 133/61 132/64 133/59 L Pulse Oximetry 97 98 100 08/25/17 03:00 08/25/17 03:15 08/25/17 03:30 Temperature Pulse Rate 60 60 60 Respiratory Rate 14 14 14 Blood Pressure 131/60 127/60 129/63 Pulse Oximetry 99 98 98 08/25/17 03:45 08/25/17 04:00 08/25/17 04:15 Temperature 98.6 F Pulse Rate 60 60 60 Respiratory Rate 14 17 14 Blood Pressure 141/65 H 142/65 H 135/58 L Pulse Oximetry 98 100 99 08/25/17 04:21 08/25/17 04:30 08/25/17 04:46 Temperature Pulse Rate 60 60 60 Respiratory Rate 20 18 16 Blood Pressure 145/62 H 159/69 H Pulse Oximetry 98 98 08/25/17 05:00 08/25/17 05:01 08/25/17 05:15 Temperature Pulse Rate 59 L 59 L 59 L Respiratory Rate 15 14 19 Blood Pressure 142/62 H 155/67 H Pulse Oximetry 98 98 97 08/25/17 05:31 08/25/17 05:45 08/25/17 06:00 Temperature Pulse Rate 60 60 60 Respiratory Rate 14 14 14 Blood Pressure 145/58 H 153/69 H 146/67 H Pulse Oximetry 99 99 97 08/25/17 06:15 08/25/17 06:30 08/25/17 08:00 Temperature 98.6 F Pulse Rate 60 60 61 Respiratory Rate 14 14 14 Blood Pressure 141/63 H 145/66 H 145/63 H Pulse Oximetry 95 95 99 08/25/17 08:27 08/25/17 09:00 08/25/17 10:00 Temperature Pulse Rate 61 60 60 Respiratory Rate 18 22 15 Blood Pressure 161/70 H 144/64 H Pulse Oximetry 100 100 98 08/25/17 11:33 08/25/17 11:52 Temperature Pulse Rate 60 Respiratory Rate 14 Blood Pressure Pulse Oximetry 97 100 Intake & Output 08/24/17 08/25/17 08/25/17 18:59 06:59 18:59 Intake Total 2024 / 2024 1099 / 1099 Output Total 1020 / 1020 30 / 30 Balance 1005 / 1005 1069 / 1069 Weight 83 kg Intake: IV 1970 750 / 750 Cordarone Inj 450 MG In D5W Inj 491 / 491 250 / 250 241 ML @ 1 MG/MIN 33.33 mls/hr IV.CONT .[id number] [facility] Rx#: [id number] Lidocaine/D5W 2000 mg/500 mL 500 / 500 Premix Inj 2,000 mg In 500 ml @ 2 MG/MIN 30 mls/hr IV.CONT . [id number] [facility] Rx#:[id number] NS Inj 1,000 ML @ 70 mls/hr IV. 1480 / 1480 CONT .[id number] [facility] Rx#:[id number] Tube Feeding 54 / 54 289 / 289 Water Bolus Amount 60 / 60 Output: Urine 25 / 25 30 / 30 Peritoneal Amount 995 / 995 Other: Date of Last Bowel Movement 08/24/17 08/24/17 08/24/17 # Bowel Movements 1 1 Narrative: intubated no sedation given 2mg ativan for sz. not following commands wd in legs right toe up Results - Labs CBC & Chem 7: 08/25/17 03:47 08/25/17 03:47 Laboratory Results - last 24 hr 08/24/17 08/24/17 08/25/17 18:21 23:53 03:47 WBC 8.9 RBC 2.48 L Hgb 8.3 L Hct 24.5 L MCV 98.6 MCH 33.2 MCHC 33.7 RDW 14.8 Plt Count 170 D MPV 7.6 Neut % (Auto) 81.2 H Lymph % (Auto) 5.4 L [place] % (Auto) 11.7 H Eos % (Auto) 1.4 Baso % (Auto) 0.3 Neut # (Auto) 7.3 Lymph # (Auto) 0.5 L [place] # (Auto) 1.0 H Eos # (Auto) 0.1 Baso # (Auto) 0.0 WBC Differential . Differential Comment Auto diff final Sodium Potassium Chloride Carbon Dioxide Anion Gap BUN Creatinine Estimated GFR POC Glucose 127 H 176 H Random Glucose Calcium Phosphorus Magnesium Total Bilirubin AST ALT Alkaline Phosphatase Total Protein Albumin 08/25/17 08/25/17 08/25/17 03:47 03:47 13:34 WBC RBC Hgb Hct MCV MCH MCHC RDW Plt Count MPV Neut % (Auto) Lymph % (Auto) [place] % (Auto) Eos % (Auto) Baso % (Auto) Neut # (Auto) Lymph # (Auto) [place] # (Auto) Eos # (Auto) Baso # (Auto) WBC Differential Differential Comment Sodium 133 L Potassium 3.3 L Chloride 99 Carbon Dioxide 19.6 L Anion Gap 14 BUN 25 H Creatinine 6.22 H Estimated GFR 9 L POC Glucose 156 H Random Glucose 123 H Calcium 7.9 L Phosphorus 3.3 Magnesium 2.4 Total Bilirubin 0.3 AST 15 ALT Less than 6 L Alkaline Phosphatase 48 Total Protein 5.6 L Albumin 2.4 L - Imaging Impressions Head CT 08/25/17 08:31 CONCLUSION: Chronic small vessel ischemic and atrophic changes. Assessment and Plan - Assessment (1) CVA (cerebral vascular accident) Code(s): I63.9 - Cerebral infarction, unspecified Status: Acute - Plan ct brain neg eeg c/w 2 small sz see report. LP pending keppra and pht check pht level keep therapeutic. f/u eeg in am.
[2017-08-25] MEDS: Chlorhexidine 0.12% Oral Kit 15 ML UDC OROPHARYNG SCH ×3 (15:38→21:17)
--- NOTE | 2017-08-25 15:41 | P.PNNP ---
Subjective Interval history: He remains intubated, on 35% FiO2. On amiodarone and lidocaine gtts. Had apparent seizure like activity overnight. <Jania Gallagher - Last Filed: 08/25/17 15:33> Physical Exam Vital signs: Vital Signs 08/24/17 15:45 08/24/17 15:46 08/24/17 16:00 Temperature Pulse Rate 60 60 60 Respiratory Rate 17 17 15 Blood Pressure 190/73 H 184/83 H 181/66 H Pulse Oximetry 100 100 100 08/24/17 16:05 08/24/17 16:08 08/24/17 16:16 Temperature Pulse Rate 60 60 Respiratory Rate 14 14 18 Blood Pressure 163/69 H Pulse Oximetry 100 100 08/24/17 16:30 08/24/17 16:45 08/24/17 17:00 Temperature 98.2 F Pulse Rate 60 60 60 Respiratory Rate 15 14 14 Blood Pressure 178/79 H 160/61 H 149/67 H Pulse Oximetry 100 100 100 08/24/17 17:15 08/24/17 17:30 08/24/17 17:45 Temperature Pulse Rate 60 60 60 Respiratory Rate 14 14 14 Blood Pressure 137/65 134/58 L 133/60 Pulse Oximetry 100 100 100 08/24/17 18:00 08/24/17 18:15 08/24/17 18:30 Temperature Pulse Rate 60 60 60 Respiratory Rate 14 14 14 Blood Pressure 142/66 H 147/68 H 154/71 H Pulse Oximetry 100 100 100 08/24/17 18:45 08/24/17 19:00 08/24/17 19:15 Temperature Pulse Rate 60 60 60 Respiratory Rate 14 14 14 Blood Pressure 154/65 H 149/67 H 146/67 H Pulse Oximetry 100 100 99 08/24/17 19:30 08/24/17 19:45 08/24/17 20:00 Temperature 98.3 F Pulse Rate 60 60 60 Respiratory Rate 14 14 21 Blood Pressure 145/67 H 143/67 H 140/67 Pulse Oximetry 100 100 100 08/24/17 20:15 08/24/17 20:30 08/24/17 20:45 Temperature Pulse Rate 60 60 60 Respiratory Rate 14 14 17 Blood Pressure 171/75 H 165/71 H 164/73 H Pulse Oximetry 100 100 100 08/24/17 21:00 08/24/17 21:15 08/24/17 21:30 Temperature Pulse Rate 60 60 60 Respiratory Rate 14 14 14 Blood Pressure 148/59 H 143/65 H 147/69 H Pulse Oximetry 100 99 98 08/24/17 21:45 08/24/17 22:00 08/24/17 22:15 Temperature Pulse Rate 60 60 60 Respiratory Rate 14 14 14 Blood Pressure 153/71 H 150/70 H 155/73 H Pulse Oximetry 99 99 99 08/24/17 22:30 08/24/17 22:45 08/24/17 23:00 Temperature Pulse Rate 60 60 60 Respiratory Rate 14 14 15 Blood Pressure 150/70 H 150/71 H 151/67 H Pulse Oximetry 98 98 98 08/24/17 23:15 08/24/17 23:30 08/24/17 23:45 Temperature Pulse Rate 60 60 60 Respiratory Rate 15 14 22 Blood Pressure 153/71 H 152/70 H 152/59 H Pulse Oximetry 99 96 97 08/25/17 00:00 08/25/17 00:15 08/25/17 00:30 Temperature 98.2 F Pulse Rate 60 60 66 Respiratory Rate 14 14 18 Blood Pressure 151/67 H 148/64 H 142/66 H Pulse Oximetry 100 99 100 08/25/17 00:37 08/25/17 00:46 08/25/17 01:00 Temperature Pulse Rate 60 60 60 Respiratory Rate 17 15 15 Blood Pressure 152/65 H 145/66 H Pulse Oximetry 100 98 99 08/25/17 01:15 08/25/17 01:30 08/25/17 01:45 Temperature Pulse Rate 60 60 60 Respiratory Rate 14 14 14 Blood Pressure 140/65 142/63 H 150/65 H Pulse Oximetry 100 97 98 08/25/17 02:00 08/25/17 02:15 08/25/17 02:30 Temperature Pulse Rate 60 60 60 Respiratory Rate 17 17 14 Blood Pressure 148/66 H 133/61 132/64 Pulse Oximetry 97 97 98 08/25/17 02:45 08/25/17 03:00 08/25/17 03:15 Temperature Pulse Rate 60 60 60 Respiratory Rate 16 14 14 Blood Pressure 133/59 L 131/60 127/60 Pulse Oximetry 100 99 98 08/25/17 03:30 08/25/17 03:45 08/25/17 04:00 Temperature 98.6 F Pulse Rate 60 60 60 Respiratory Rate 14 14 17 Blood Pressure 129/63 141/65 H 142/65 H Pulse Oximetry 98 98 100 08/25/17 04:15 08/25/17 04:21 08/25/17 04:30 Temperature Pulse Rate 60 60 60 Respiratory Rate 14 20 18 Blood Pressure 135/58 L 145/62 H Pulse Oximetry 99 98 08/25/17 04:46 08/25/17 05:00 08/25/17 05:01 Temperature Pulse Rate 60 59 L 59 L Respiratory Rate 16 15 14 Blood Pressure 159/69 H 142/62 H Pulse Oximetry 98 98 98 08/25/17 05:15 08/25/17 05:31 08/25/17 05:45 Temperature Pulse Rate 59 L 60 60 Respiratory Rate 19 14 14 Blood Pressure 155/67 H 145/58 H 153/69 H Pulse Oximetry 97 99 99 08/25/17 06:00 08/25/17 06:15 08/25/17 06:30 Temperature Pulse Rate 60 60 60 Respiratory Rate 14 14 14 Blood Pressure 146/67 H 141/63 H 145/66 H Pulse Oximetry 97 95 95 08/25/17 08:00 08/25/17 08:27 08/25/17 09:00 Temperature 98.6 F Pulse Rate 61 61 60 Respiratory Rate 14 18 22 Blood Pressure 145/63 H 161/70 H Pulse Oximetry 99 100 100 08/25/17 10:00 08/25/17 11:33 08/25/17 11:52 Temperature Pulse Rate 60 60 Respiratory Rate 15 14 Blood Pressure 144/64 H Pulse Oximetry 98 97 100 Intake & Output 08/24/17 08/25/17 08/25/17 18:59 06:59 18:59 Intake Total 2024 / 2024 1099 / 1099 Output Total 1020 / 1020 30 / 30 Balance 1005 / 1005 1069 / 1069 Weight 83 kg Intake: IV 1970 750 / 750 Cordarone Inj 450 MG In D5W Inj 491 / 491 250 / 250 241 ML @ 1 MG/MIN 33.33 mls/hr IV.CONT .Q7H31M [facility] Rx#: [id number] Lidocaine/D5W 2000 mg/500 mL 500 / 500 Premix Inj 2,000 mg In 500 ml @ 2 MG/MIN 30 mls/hr IV.CONT . [id number] [facility] Rx#:[id number] NS Inj 1,000 ML @ 70 mls/hr IV. 1480 / 1480 CONT .[id number] [facility] Rx#:[id number] Tube Feeding 54 / 54 289 / 289 Water Bolus Amount 60 / 60 Output: Urine 25 / 25 30 / 30 Peritoneal Amount 995 / 995 Other: Date of Last Bowel Movement 08/24/17 08/24/17 08/24/17 # Bowel Movements 1 1 - Constitutional chronically ill appearing - Routine HEENT Exam Head: Present: normocephalic - Routine Neck Exam Present: supple - Routine Respiratory Exam Present: patient mechanically ventilated, CTA bilaterally - Routine Cardiovascular Exam Present: S1, S2, irregular rhythm Comments: paced, AICD/pacer left chest - Routine Abdominal Exam Present: soft, normoactive bowel sounds - Routine Extremities Exam Present: edema Comments: upper extremity edema - Routine Skin Exam Present: intact, warm - Routine Neurological Exam intubated, unresponsive off sedation - Routine Psychiatric Exam Present: unable to assess <Jania Gallagher - Last Filed: 08/25/17 15:33> Vital signs: Vital Signs 08/24/17 19:45 08/24/17 20:00 08/24/17 20:15 Temperature 98.3 F Pulse Rate 60 60 60 Respiratory Rate 14 21 14 Blood Pressure 143/67 H 140/67 171/75 H Pulse Oximetry 100 100 100 08/24/17 20:30 08/24/17 20:45 08/24/17 21:00 Temperature Pulse Rate 60 60 60 Respiratory Rate 14 17 14 Blood Pressure 165/71 H 164/73 H 148/59 H Pulse Oximetry 100 100 100 08/24/17 21:15 08/24/17 21:30 08/24/17 21:45 Temperature Pulse Rate 60 60 60 Respiratory Rate 14 14 14 Blood Pressure 143/65 H 147/69 H 153/71 H Pulse Oximetry 99 98 99 08/24/17 22:00 08/24/17 22:15 08/24/17 22:30 Temperature Pulse Rate 60 60 60 Respiratory Rate 14 14 14 Blood Pressure 150/70 H 155/73 H 150/70 H Pulse Oximetry 99 99 98 08/24/17 22:45 08/24/17 23:00 08/24/17 23:15 Temperature Pulse Rate 60 60 60 Respiratory Rate 14 15 15 Blood Pressure 150/71 H 151/67 H 153/71 H Pulse Oximetry 98 98 99 08/24/17 23:30 08/24/17 23:45 08/25/17 00:00 Temperature 98.2 F Pulse Rate 60 60 60 Respiratory Rate 14 22 14 Blood Pressure 152/70 H 152/59 H 151/67 H Pulse Oximetry 96 97 100 08/25/17 00:15 08/25/17 00:30 08/25/17 00:37 Temperature Pulse Rate 60 66 60 Respiratory Rate 14 18 17 Blood Pressure 148/64 H 142/66 H Pulse Oximetry 99 100 100 08/25/17 00:46 08/25/17 01:00 08/25/17 01:15 Temperature Pulse Rate 60 60 60 Respiratory Rate 15 15 14 Blood Pressure 152/65 H 145/66 H 140/65 Pulse Oximetry 98 99 100 08/25/17 01:30 08/25/17 01:45 08/25/17 02:00 Temperature Pulse Rate 60 60 60 Respiratory Rate 14 14 17 Blood Pressure 142/63 H 150/65 H 148/66 H Pulse Oximetry 97 98 97 08/25/17 02:15 08/25/17 02:30 08/25/17 02:45 Temperature Pulse Rate 60 60 60 Respiratory Rate 17 14 16 Blood Pressure 133/61 132/64 133/59 L Pulse Oximetry 97 98 100 08/25/17 03:00 08/25/17 03:15 08/25/17 03:30 Temperature Pulse Rate 60 60 60 Respiratory Rate 14 14 14 Blood Pressure 131/60 127/60 129/63 Pulse Oximetry 99 98 98 08/25/17 03:45 08/25/17 04:00 08/25/17 04:15 Temperature 98.6 F Pulse Rate 60 60 60 Respiratory Rate 14 17 14 Blood Pressure 141/65 H 142/65 H 135/58 L Pulse Oximetry 98 100 99 08/25/17 04:21 08/25/17 04:30 08/25/17 04:46 Temperature Pulse Rate 60 60 60 Respiratory Rate 20 18 16 Blood Pressure 145/62 H 159/69 H Pulse Oximetry 98 98 08/25/17 05:00 08/25/17 05:01 08/25/17 05:15 Temperature Pulse Rate 59 L 59 L 59 L Respiratory Rate 15 14 19 Blood Pressure 142/62 H 155/67 H Pulse Oximetry 98 98 97 08/25/17 05:31 08/25/17 05:45 08/25/17 06:00 Temperature Pulse Rate 60 60 60 Respiratory Rate 14 14 14 Blood Pressure 145/58 H 153/69 H 146/67 H Pulse Oximetry 99 99 97 08/25/17 06:15 08/25/17 06:30 08/25/17 08:00 Temperature 98.6 F Pulse Rate 60 60 61 Respiratory Rate 14 14 14 Blood Pressure 141/63 H 145/66 H 145/63 H Pulse Oximetry 95 95 99 08/25/17 08:27 08/25/17 09:00 08/25/17 10:00 Temperature Pulse Rate 61 60 60 Respiratory Rate 18 22 15 Blood Pressure 161/70 H 144/64 H Pulse Oximetry 100 100 98 08/25/17 10:05 08/25/17 10:15 08/25/17 10:30 Temperature Pulse Rate 60 60 60 Respiratory Rate 21 14 14 Blood Pressure 140/57 L 144/64 H 146/67 H Pulse Oximetry 99 98 98 08/25/17 10:45 08/25/17 11:00 08/25/17 11:02 Temperature Pulse Rate 60 133 H 60 Respiratory Rate 14 41 H 20 Blood Pressure 147/68 H 73/35 L 181/72 H Pulse Oximetry 99 97 100 08/25/17 11:15 08/25/17 11:30 08/25/17 11:33 Temperature Pulse Rate 60 60 60 Respiratory Rate 18 14 14 Blood Pressure 177/77 H 149/67 H Pulse Oximetry 99 98 97 08/25/17 11:45 08/25/17 11:52 08/25/17 12:00 Temperature 99.8 F H Pulse Rate 60 60 Respiratory Rate 14 15 Blood Pressure 151/63 H 150/65 H Pulse Oximetry 97 100 99 08/25/17 12:15 08/25/17 12:30 08/25/17 12:39 Temperature Pulse Rate 60 60 60 Respiratory Rate 14 23 19 Blood Pressure 142/62 H 130/57 L 153/67 H Pulse Oximetry 99 100 99 08/25/17 12:45 08/25/17 13:00 08/25/17 13:16 Temperature Pulse Rate 60 60 59 L Respiratory Rate 17 19 24 Blood Pressure 152/67 H 156/67 H 108/51 L Pulse Oximetry 100 100 100 08/25/17 13:30 08/25/17 13:46 08/25/17 14:00 Temperature Pulse Rate 59 L 59 L 59 L Respiratory Rate 17 14 14 Blood Pressure 156/70 H 142/60 H 138/65 Pulse Oximetry 100 100 99 08/25/17 14:15 08/25/17 14:30 08/25/17 14:45 Temperature Pulse Rate 59 L 59 L 59 L Respiratory Rate 14 15 14 Blood Pressure 127/63 132/60 146/67 H Pulse Oximetry 98 99 100 08/25/17 15:00 08/25/17 15:15 08/25/17 15:30 Temperature Pulse Rate 59 L 59 L 59 L Respiratory Rate 18 14 15 Blood Pressure 132/58 L 126/60 114/55 L Pulse Oximetry 99 99 100 08/25/17 15:42 08/25/17 15:45 08/25/17 16:00 Temperature 98.7 F Pulse Rate 59 L 59 L 59 L Respiratory Rate 14 14 14 Blood Pressure 153/70 H 151/67 H Pulse Oximetry 100 100 99 08/25/17 16:15 08/25/17 16:30 08/25/17 16:45 Temperature Pulse Rate 59 L 59 L 59 L Respiratory Rate 14 15 15 Blood Pressure 134/63 125/55 L 160/67 H Pulse Oximetry 100 99 100 08/25/17 17:00 08/25/17 17:08 08/25/17 17:12 Temperature Pulse Rate 60 60 60 Respiratory Rate 21 15 19 Blood Pressure 161/70 H 162/67 H 162/67 H Pulse Oximetry 95 100 100 08/25/17 17:16 08/25/17 17:20 08/25/17 17:24 Temperature Pulse Rate 60 60 60 Respiratory Rate 20 20 19 Blood Pressure 150/67 H 159/67 H 157/71 H Pulse Oximetry 93 L 100 100 08/25/17 17:28 08/25/17 17:32 08/25/17 17:36 Temperature Pulse Rate 60 60 60 Respiratory Rate Blood Pressure 156/60 H 170/72 H 169/72 H Pulse Oximetry 92 L 98 100 08/25/17 17:40 08/25/17 17:44 08/25/17 17:48 Temperature Pulse Rate 60 60 60 Respiratory Rate Blood Pressure 165/69 H 171/71 H 166/74 H Pulse Oximetry 100 100 100 08/25/17 17:52 08/25/17 17:56 08/25/17 18:00 Temperature Pulse Rate 60 60 60 Respiratory Rate Blood Pressure 162/71 H 159/66 H Pulse Oximetry 99 100 100 08/25/17 18:01 08/25/17 18:04 08/25/17 18:08 Temperature Pulse Rate 60 60 60 Respiratory Rate Blood Pressure 142/99 H 164/69 H 170/73 H Pulse Oximetry 98 100 100 08/25/17 18:12 08/25/17 18:16 Temperature Pulse Rate 60 60 Respiratory Rate Blood Pressure 160/62 H 166/72 H Pulse Oximetry 95 100 Intake & Output 08/25/17 08/25/17 08/26/17 06:59 18:59 06:59 Intake Total 1099 / 1099 1023 / 1023 Output Total 30 / 30 0 / 0 Balance 1069 / 1069 1023 / 1023 Weight 83 kg Intake: IV 750 / 750 725 / 725 Cordarone Inj 450 MG In D5W Inj 250 / 250 225 / 225 241 ML @ 1 MG/MIN 33.33 mls/hr IV.CONT .Q7H31M [facility] Rx#: [id number] Lidocaine/D5W 2000 mg/500 mL 500 / 500 350 / 350 Premix Inj 2,000 mg In 500 ml @ 2 MG/MIN 30 mls/hr IV.CONT . [id number] [facility] Rx#:[id number] Cerebyx Inj 1,000 MGPE In NS 50 / 50 Inj 50 ML @ 280 mls/hr IV.SIG ONCE ONE Rx#:[id number] Keppra 1000 mg/100 mL Premix 100 / 100 100 ML @ 400 mls/hr IV.SIG NOW ONE Rx#:[id number] Oral 0 / 0 Tube Feeding 289 / 289 238 / 238 Water Bolus Amount 60 / 60 60 / 60 Output: Urine 30 / 30 Gastric Drainage 0 / 0 Orogastric Tube 0 / 0 Other: Date of Last Bowel Movement 08/24/17 08/24/17 # Bowel Movements 1 1 <Gabriel Salcedo - Last Filed: 08/25/17 19:34> Assessment and Plan - Assessment (1) End stage renal disease Code(s): N18.6 - End stage renal disease Status: Deleted Plan: Continue nightly PD. His prescription is 11 hours, 6 cycles, 2500 ml fill volume, no last fill. His UF has been adequate. Monitor fluid status, he has upper extremity edema. We will use 2.5% solution tonight. Also monitor electrolytes intermittently. Replace potassium as needed. Phosphorus normalized, not on binders currently. Avoid IVF administration. Gadolinium in contraindicated. Midodrine if needed for hypotension. (2) Cardiac syncope Code(s): R55 - Syncope and collapse Status: Deleted Plan: Seen by cardiology. s/p AICD placement. On Amiodarone and lidocaine. Now on the ventilator. (3) Anemia associated with chronic renal failure Code(s): D63.1 - Anemia in chronic kidney disease Status: Acute Plan: No evidence of iron deficiency. Given 20K Epogen 08/25. (4) History of CVA (cerebrovascular accident) Code(s): Z86.73 - Personal history of transient ischemic attack (TIA), and cerebral infarction without residual deficits Status: Deleted Plan: Received TPA. Neurology managing. Currently unresponsive. <Jania Gallagher - Last Filed: 08/25/17 15:33> - Assessment (1) End stage renal disease Code(s): N18.6 - End stage renal disease Status: Deleted (2) Cardiac syncope Code(s): R55 - Syncope and collapse Status: Deleted (3) Anemia associated with chronic renal failure Code(s): D63.1 - Anemia in chronic kidney disease Status: Acute (4) History of CVA (cerebrovascular accident) Code(s): Z86.73 - Personal history of transient ischemic attack (TIA), and cerebral infarction without residual deficits Status: Deleted - Attending Attestation patient was seen and examined. Agree with above assessment and plan. <Gabriel Salcedo - Last Filed: 08/25/17 19:34>
[2017-08-25] MEDS ORDERED: Potassium Bicarbonate 25 MEQ Effervescent Tablet PO ONE (19:30)
[2017-08-25] MEDS ORDERED: Fosphenytoin Inj 500 MGPE in Sodium Chlor 0.9% Inj 50 ML IV.SIG ONE (19:51)
[2017-08-25 20:41] LABS: Lymphocytes, CSF 88 %; Monocytes,CSF 8 %; Neutrophils,CSF 4 %; RBC on Tube 4 3 /mm3
[2017-08-25] MEDS: levETIRAcetam 500mg/100mL Inj 100 ML IV.SIG SCH (21:08)
[2017-08-25] MEDS: Heparin - SQ 10,000 UNITS/ML Vial SQ SCH (21:09)
[2017-08-25] MEDS: Fosphenytoin Inj 100 MGPE in Sodium Chlor 0.9% Inj 50 ML IV.SIG SCH (21:15)
[2017-08-25] MEDS: Latanoprost 0.005% Opth Drops 2.5 ML Bottle EACH EYE SCH (21:16)
[2017-08-26] MEDS: Oral Hygiene Kit OROPHARYNG SCH ×5 (04:00→16:30)
[2017-08-26] MEDS: Fosphenytoin Inj 100 MGPE in Sodium Chlor 0.9% Inj 50 ML IV.SIG SCH (05:41)
[2017-08-26] MEDS: Insulin NovoLOG Aspart Correctional Sugar Inj SQ SCH ×5 (05:53→19:03)
--- NOTE | 2017-08-26 08:06 | P.PNCA ---
Subjective Interval history: Intubated. Unresponsive. Physical Exam Vital signs: Vital Signs 08/25/17 08:27 08/25/17 09:00 08/25/17 10:00 Temperature Pulse Rate 61 60 60 Respiratory Rate 18 22 15 Blood Pressure 161/70 H 144/64 H Pulse Oximetry 100 100 98 08/25/17 10:05 08/25/17 10:15 08/25/17 10:30 Temperature Pulse Rate 60 60 60 Respiratory Rate 21 14 14 Blood Pressure 140/57 L 144/64 H 146/67 H Pulse Oximetry 99 98 98 08/25/17 10:45 08/25/17 11:00 08/25/17 11:02 Temperature Pulse Rate 60 133 H 60 Respiratory Rate 14 41 H 20 Blood Pressure 147/68 H 73/35 L 181/72 H Pulse Oximetry 99 97 100 08/25/17 11:15 08/25/17 11:30 08/25/17 11:33 Temperature Pulse Rate 60 60 60 Respiratory Rate 18 14 14 Blood Pressure 177/77 H 149/67 H Pulse Oximetry 99 98 97 08/25/17 11:45 08/25/17 11:52 08/25/17 12:00 Temperature 99.8 F H Pulse Rate 60 60 Respiratory Rate 14 15 Blood Pressure 151/63 H 150/65 H Pulse Oximetry 97 100 99 08/25/17 12:15 08/25/17 12:30 08/25/17 12:39 Temperature Pulse Rate 60 60 60 Respiratory Rate 14 23 19 Blood Pressure 142/62 H 130/57 L 153/67 H Pulse Oximetry 99 100 99 08/25/17 12:45 08/25/17 13:00 08/25/17 13:16 Temperature Pulse Rate 60 60 59 L Respiratory Rate 17 19 24 Blood Pressure 152/67 H 156/67 H 108/51 L Pulse Oximetry 100 100 100 08/25/17 13:30 08/25/17 13:46 08/25/17 14:00 Temperature Pulse Rate 59 L 59 L 59 L Respiratory Rate 17 14 14 Blood Pressure 156/70 H 142/60 H 138/65 Pulse Oximetry 100 100 99 08/25/17 14:15 08/25/17 14:30 08/25/17 14:45 Temperature Pulse Rate 59 L 59 L 59 L Respiratory Rate 14 15 14 Blood Pressure 127/63 132/60 146/67 H Pulse Oximetry 98 99 100 07/17/18 15:00 08/25/17 15:15 08/25/17 15:30 Temperature Pulse Rate 59 L 59 L 59 L Respiratory Rate 18 14 15 Blood Pressure 132/58 L 126/60 114/55 L Pulse Oximetry 99 99 100 08/25/17 15:42 08/25/17 15:45 08/25/17 16:00 Temperature 98.7 F Pulse Rate 59 L 59 L 59 L Respiratory Rate 14 14 14 Blood Pressure 153/70 H 151/67 H Pulse Oximetry 100 100 99 08/25/17 16:15 08/25/17 16:30 08/25/17 16:45 Temperature Pulse Rate 59 L 59 L 59 L Respiratory Rate 14 15 15 Blood Pressure 134/63 125/55 L 160/67 H Pulse Oximetry 100 99 100 08/25/17 17:00 08/25/17 17:08 08/25/17 17:12 Temperature Pulse Rate 60 60 60 Respiratory Rate 21 15 19 Blood Pressure 161/70 H 162/67 H 162/67 H Pulse Oximetry 95 100 100 08/25/17 17:16 08/25/17 17:20 08/25/17 17:24 Temperature Pulse Rate 60 60 60 Respiratory Rate 20 20 19 Blood Pressure 150/67 H 159/67 H 157/71 H Pulse Oximetry 93 L 100 100 08/25/17 17:28 08/25/17 17:32 08/25/17 17:36 Temperature Pulse Rate 60 60 60 Respiratory Rate Blood Pressure 156/60 H 170/72 H 169/72 H Pulse Oximetry 92 L 98 100 08/25/17 17:40 08/25/17 17:44 08/25/17 17:48 Temperature Pulse Rate 60 60 60 Respiratory Rate Blood Pressure 165/69 H 171/71 H 166/74 H Pulse Oximetry 100 100 100 08/25/17 17:52 08/25/17 17:56 08/25/17 18:00 Temperature Pulse Rate 60 60 60 Respiratory Rate Blood Pressure 162/71 H 159/66 H Pulse Oximetry 99 100 100 08/25/17 18:01 08/25/17 18:04 08/25/17 18:08 Temperature Pulse Rate 60 60 60 Respiratory Rate Blood Pressure 142/99 H 164/69 H 170/73 H Pulse Oximetry 98 100 100 08/25/17 18:12 08/25/17 18:16 08/25/17 19:00 Temperature Pulse Rate 60 60 60 Respiratory Rate 14 Blood Pressure 160/62 H 166/72 H 150/67 H Pulse Oximetry 95 100 100 08/25/17 20:00 08/25/17 20:44 08/25/17 21:00 Temperature 99.5 F Pulse Rate 60 62 60 Respiratory Rate 14 14 17 Blood Pressure 153/69 H 153/67 H Pulse Oximetry 100 100 100 08/25/17 22:00 08/25/17 23:00 08/25/17 23:16 Temperature Pulse Rate 60 60 Respiratory Rate 14 17 18 Blood Pressure 147/64 H 148/64 H Pulse Oximetry 100 100 100 08/25/17 23:22 08/26/17 00:00 08/26/17 01:00 Temperature 99.9 F H Pulse Rate 61 60 60 Respiratory Rate 18 Blood Pressure 155/67 H 154/67 H Pulse Oximetry 100 100 08/26/17 02:00 08/26/17 03:00 08/26/17 03:54 Temperature Pulse Rate 60 60 65 Respiratory Rate 22 Blood Pressure 152/66 H 150/79 H Pulse Oximetry 100 100 08/26/17 04:00 08/26/17 05:00 08/26/17 06:00 Temperature 100.3 F H Pulse Rate 59 L 59 L 59 L Respiratory Rate Blood Pressure 132/62 128/61 113/56 L Pulse Oximetry Intake & Output 08/25/17 08/26/17 08/26/17 18:59 06:59 18:59 Intake Total 1023 / 1023 102 / 102 Output Total 0 / 0 25 / 25 2381 / 2381 Balance 1023 / 1023 77 / 77 -2381 / -2381 Weight 78.5 kg Intake: IV 725 / 725 102 / 102 Cordarone Inj 450 MG In D5W Inj 225 / 225 50 / 50 241 ML @ 1 MG/MIN 33.33 mls/hr IV.CONT .Q7H31M [facility] Rx#: [id number] Lidocaine/D5W 2000 mg/500 mL 350 / 350 Premix Inj 2,000 mg In 500 ml @ 2 MG/MIN 30 mls/hr IV.CONT . [id number] [facility] Rx#:[id number] Cerebyx Inj 100 MGPE In NS Inj 52 / 52 50 ML @ 208 mls/hr IV.SIG Q8H [facility] Rx#:[id number] Cerebyx Inj 1,000 MGPE In NS 50 / 50 Inj 50 ML @ 280 mls/hr IV.SIG ONCE ONE Rx#:[id number] Keppra 1000 mg/100 mL Premix 100 / 100 100 ML @ 400 mls/hr IV.SIG NOW ONE Rx#:[id number] Oral 0 / 0 Tube Feeding 238 / 238 Water Bolus Amount 60 / 60 Output: Urine 0 / 0 Stool 25 / 25 Peritoneal Amount 2380 / 2381 Gastric Drainage 0 / 0 Orogastric Tube 0 / 0 Other: Date of Last Bowel Movement 08/24/17 08/24/17 # Bowel Movements 1 # Incontinent Bowel Movements 2 - Constitutional Comments: Intubated. Unresponsive. - Routine Neck Exam Absent: JVD - Routine Respiratory Exam Present: CTA bilaterally - Routine Cardiovascular Exam Present: RRR, S1, S2. Absent: murmur, gallop - Routine Abdominal Exam Present: soft, normoactive bowel sounds. Absent: organomegaly - Routine Extremities Exam Absent: cyanosis, clubbing, edema Assessment and Plan - Assessment (1) Sustained ventricular tachycardia Code(s): I47.2 - Ventricular tachycardia Status: Deleted Plan: Stable past ~48 hours. No further VT/VF. Remains on IV Amiodarone. Echo reviewed, agree EF 35-40%. EF on echo 08/16/17 at [facility] 55%. ? has myocarditis REC agree with stopping lidocaine with his neurological problems; try to change Amiodarone to oral continue colchicine as per Dr. Brennan (2) Coronary artery disease Code(s): I25.10 - Atherosclerotic heart disease of [place] coronary artery without angina pectoris Status: Chronic Plan: Stable CAD status. No definite recent angina. Continue Plavix, aspirin. Nuclear stress test images from [facility] 08/17/17 reviewed; they are completely normal. (3) Cardiomyopathy Code(s): I42.9 - Cardiomyopathy, unspecified Status: Acute Plan: Echo this admission reviewed, agree EF reduced to ~35-40% with global hypokinesis. EF on echo 08/16/17 normal. Continue carvedilol. No SHAUNNA-I or ARB with CRI. (4) Paroxysmal atrial fibrillation Code(s): I48.0 - Paroxysmal atrial fibrillation Status: Acute Plan: Not well documented history of atrial fibrillation. Can track any future atrial fibrillation via ICD transmissions. No atrial fibrillation during current admission. Continue daily aspirin. Likely to remain on Amiodarone post discharge as well. - Plan Code Status: Alternative code. (2) Coronary artery disease Qualifiers: Coronary Disease-Associated Artery/Lesion type: [place] artery [place] vs. transplanted heart: [place] heart Associated angina: without angina Qualified Code(s): I25.10 - Atherosclerotic heart disease of [place] coronary artery without angina pectoris (3) Cardiomyopathy Qualifiers: Cardiomyopathy type: unspecified Qualified Code(s): I42.9 - Cardiomyopathy, unspecified
[2017-08-26] MEDS: Acetaminophen 325 MG Tablet PO PRN (08:43)
[2017-08-26] MEDS: Carvedilol 6.25 MG Tablet PO SCH ×2 (08:44→21:50)
[2017-08-26] MEDS: Hypromellose 0.3% Opth Gel 10 GM Bottle EACH EYE SCH ×3 (08:46→19:04)
[2017-08-26] MEDS: CALCITRIOL PO SCH (08:47)
[2017-08-26] MEDS: Chlorhexidine 0.12% Oral Kit 15 ML UDC OROPHARYNG SCH ×2 (08:47→21:51)
[2017-08-26] MEDS: Senna/Docusate Sodium 8.6/50 MG Tablet PO SCH ×2 (08:51→21:57)
[2017-08-26] MEDS: Amiodarone 200 MG Tablet PO SCH ×2 (08:54→21:51)
[2017-08-26] MEDS: Heparin - SQ 10,000 UNITS/ML Vial SQ SCH ×2 (08:56→21:51)
[2017-08-26 08:58] LABS: Hematocrit 23.1 % (39.0-51.0); Hemoglobin 7.8 gm/dL (13.0-17.0); Mean Corpuscular HGB Conc 33.7 % (32.0-36.0); Mean Corpuscular Hemoglobin 33.4 pg (27.0-34.0); Mean Corpuscular Volume 99.1 fL (80.0-100.0); Mean Platelet Volume 7.3 fL (7.0-11.0); Platelet Count 198 th/mm3 (150-450); Red Blood Count 2.33 mil/mm3 (4.50-5.90); White Blood Count 13.2 th/mm3 (4.0-11.0)
[2017-08-26] MEDS ORDERED: Fosphenytoin Inj 500 MGPE in Sodium Chlor 0.9% Inj 50 ML IV.SIG ONE (09:00)
[2017-08-26] MEDS: Polyethylene Glycol 3350 17 GM Packet PO SCH ×2 (09:02→21:57)
[2017-08-26 09:13] LABS: Magnesium 2.2 mg/dL (1.5-2.5); Phosphorus 3.1 mg/dL (2.5-4.9)
[2017-08-26 09:15] LABS: Albumin 2.3 g/dL (3.4-5.0); Anion Gap 17 meq/L (5-15); Aspartate Aminotransferase 13 U/L (15-37); Blood Urea Nitrogen 24 mg/dL (7-18); Calcium 8.6 mg/dL (8.5-10.1); Carbon Dioxide 19.7 meq/L (21.0-32.0); Chloride 99 meq/L (98-107); Glomerular Filtration Rate 9 mL/min (>89); Glucose,Random 108 mg/dL (74-106); Sodium 136 meq/L (136-145)
[2017-08-26 09:22] LABS: Potassium 2.7 meq/L (3.5-5.1)
[2017-08-26 09:28] LABS: Alkaline Phosphatase 57 U/L (45-117); Total Protein 5.8 g/dL (6.4-8.2)
[2017-08-26] MEDS: levETIRAcetam 500mg/100mL Inj 100 ML IV.SIG SCH (09:37)
--- NOTE | 2017-08-26 09:41 | P.PCN ---
Date of procedure: 08/25/17 Pre-op diagnosis: acute encephalopathy Post-op diagnosis: same Procedure: I performed this procedure on 08/25. Delayed note entry. Lumbar Puncture Diagnosis: Acute encephalopathy Indications: Acute encephalopathy with new onset seizures Consent: Obtained from the Anesthesia: 1% lidocaine locally Description of the Procedure: The patient was placed in the supine, right lateral decubitus position. The patient was prepped and draped sterilely. 1% lidocaine was infiltrated subcutaneously. A 20g Quincke needle was inserted into the L3-4 interspace and advanced until CSF was obtained. Opening pressure was obtained. CSF was drained in 4 incremental vials. The needle was removed and a dressing was applied. The patient was returned to the supine position. Instructions were given to remain flat x 2 hours. There were no immediate complications noted. There was minimal EBL. The patient tolerated the procedure well. Opening Pressure: 14 centimeters water Amount of CSF removed: 10 mL's Findings: Clear CSF I personally performed the procedure.
--- NOTE | 2017-08-26 09:42 | P.PNCC ---
Subjective Subjective Remarks/Hospital Course: Patient is an 82-year-old male with a past medical history of hypertension, obstructive sleep apnea, COPD, history of CVA, end-stage renal disease on peritoneal dialysis who was recently admitted to [place] from 05/21/17 to for respiratory failure. He was brought into the emergency department today for multiple episodes of syncope. EMS strips showed several episodes of nonsustained V. tach. In the emergency department patient had a single episode of sustained V. tach, up to 54 seconds, with loss of consciousness. Pads were placed for emergency defibrillation however prior to defibrillation patient regained sinus rhythm and consciousness. Patient was given 150 mg amiodarone bolus IV, followed by amiodarone infusion. Dr. Leong from cardiology was consulted. I evaluated the patient in the emergency department. Patient is lying in bed denies chest pain. He has sinus bradycardia. I reviewed the EMS EKG strips, and the EKG done in the ED. He has sinus bradycardia, and prolonged QT interval. I discussed with Dr. Leong, we will continue amiodarone as this time as the patient responded to amiodarone. Patient will need serial cardiac enzymes, 2D echo, evaluate for AICD placement. Home medications of Midrin and propantheline will be held due to arrhythmias. Dr. Leong will evaluate for AICD placement 08/20: Overnight, 3 minute long episodes of V. tach with intermittent loss of conscious. CPR initiated with chest compressions 3 minutes. Defibrillator with 200 J. Rebolus with amiodarone 150 mg at 1040. Patient still intermittently in V. tach/bradycardic rhythm. Rebolus with 150 mg of amiodarone and currently on amiodarone drip at 1 mg/min. Lidocaine will be the next choice. Currently resting in bed and appears comfortable despite the ongoing unstable rhythm 08/21 Patient went into Vtach/vfib overnight AICD fired x 4 started now on Amio and Lidocaine drips. Afebrile. Awake and alert. 08/22: Afebrile. Last seen normal state of health at 0600. At 606 40, already noticed patient gurgling. A phasic. Both hands were at throat. Able to squeeze bilateral hands/reflexes. Moving left upper extremity spontaneously. No response bilateral lower extremities. Patient emergently intubated and sent for CT brain. Stroke alert was called and Dr. Marin notified. Attempting to notify Dr. Leong. Subjective 08/23: On route to CT brain status post 24 hours alteplase patient went to an unstable rhythm likely V. fib after which she received a shock back into normal sinus rhythm. Currently awake and alert and following commands. Lidocaine drip restarted. Cardiology to be notified. 08/24 Patient remain intubated, off sedation. Afebrile. 08/25: new altered mental status. ?seizure like activity. no VT/VF. 08/26: encephalopathy persists. dilantin level persistently subtherapeutic. re- bolused 50mg phosphenytoin. repeat EEG today. LP with lymphocytic predominance and slightly elevated protein: could be consistent with viral encephalitis. still unable to obtain MRI. remainder of studies pending. Objective Vital Signs / I&O: Vital Signs 08/25/17 10:00 08/25/17 10:05 08/25/17 10:15 Temperature Pulse Rate 60 60 60 Respiratory Rate 15 21 14 Blood Pressure 144/64 H 140/57 L 144/64 H Pulse Oximetry 98 99 98 08/25/17 10:30 08/25/17 10:45 08/25/17 11:00 Temperature Pulse Rate 60 60 133 H Respiratory Rate 14 14 41 H Blood Pressure 146/67 H 147/68 H 73/35 L Pulse Oximetry 98 99 97 08/25/17 11:02 08/25/17 11:15 08/25/17 11:30 Temperature Pulse Rate 60 60 60 Respiratory Rate 20 18 14 Blood Pressure 181/72 H 177/77 H 149/67 H Pulse Oximetry 100 99 98 08/25/17 11:33 08/25/17 11:45 08/25/17 11:52 Temperature Pulse Rate 60 60 Respiratory Rate 14 14 Blood Pressure 151/63 H Pulse Oximetry 97 97 100 08/25/17 12:00 08/25/17 12:15 08/25/17 12:30 Temperature 37.7 C H Pulse Rate 60 60 60 Respiratory Rate 15 14 23 Blood Pressure 150/65 H 142/62 H 130/57 L Pulse Oximetry 99 99 100 08/25/17 12:39 08/25/17 12:45 08/25/17 13:00 Temperature Pulse Rate 60 60 60 Respiratory Rate 19 17 19 Blood Pressure 153/67 H 152/67 H 156/67 H Pulse Oximetry 99 100 100 08/25/17 13:16 08/25/17 13:30 08/25/17 13:46 Temperature Pulse Rate 59 L 59 L 59 L Respiratory Rate 24 17 14 Blood Pressure 108/51 L 156/70 H 142/60 H Pulse Oximetry 100 100 100 08/25/17 14:00 08/25/17 14:15 08/25/17 14:30 Temperature Pulse Rate 59 L 59 L 59 L Respiratory Rate 14 14 15 Blood Pressure 138/65 127/63 132/60 Pulse Oximetry 99 98 99 08/25/17 14:45 08/25/17 15:00 08/25/17 15:15 Temperature Pulse Rate 59 L 59 L 59 L Respiratory Rate 14 18 14 Blood Pressure 146/67 H 132/58 L 126/60 Pulse Oximetry 100 99 99 08/25/17 15:30 08/25/17 15:42 08/25/17 15:45 Temperature Pulse Rate 59 L 59 L 59 L Respiratory Rate 15 14 14 Blood Pressure 114/55 L 153/70 H Pulse Oximetry 100 100 100 08/25/17 16:00 08/25/17 16:15 08/25/17 16:30 Temperature 37.1 C Pulse Rate 59 L 59 L 59 L Respiratory Rate 14 14 15 Blood Pressure 151/67 H 134/63 125/55 L Pulse Oximetry 99 100 99 08/25/17 16:45 08/25/17 17:00 08/25/17 17:08 Temperature Pulse Rate 59 L 60 60 Respiratory Rate 15 21 15 Blood Pressure 160/67 H 161/70 H 162/67 H Pulse Oximetry 100 95 100 08/25/17 17:12 08/25/17 17:16 08/25/17 17:20 Temperature Pulse Rate 60 60 60 Respiratory Rate 19 20 20 Blood Pressure 162/67 H 150/67 H 159/67 H Pulse Oximetry 100 93 L 100 08/25/17 17:24 08/25/17 17:28 08/25/17 17:32 Temperature Pulse Rate 60 60 60 Respiratory Rate 19 Blood Pressure 157/71 H 156/60 H 170/72 H Pulse Oximetry 100 92 L 98 08/25/17 17:36 08/25/17 17:40 08/25/17 17:44 Temperature Pulse Rate 60 60 60 Respiratory Rate Blood Pressure 169/72 H 165/69 H 171/71 H Pulse Oximetry 100 100 100 08/25/17 17:48 08/25/17 17:52 08/25/17 17:56 Temperature Pulse Rate 60 60 60 Respiratory Rate Blood Pressure 166/74 H 162/71 H 159/66 H Pulse Oximetry 100 99 100 08/25/17 18:00 08/25/17 18:01 08/25/17 18:04 Temperature Pulse Rate 60 60 60 Respiratory Rate Blood Pressure 142/99 H 164/69 H Pulse Oximetry 100 98 100 08/25/17 18:08 08/25/17 18:12 08/25/17 18:16 Temperature Pulse Rate 60 60 60 Respiratory Rate Blood Pressure 170/73 H 160/62 H 166/72 H Pulse Oximetry 100 95 100 08/25/17 19:00 08/25/17 20:00 08/25/17 20:44 Temperature 37.5 C Pulse Rate 60 60 62 Respiratory Rate 14 14 14 Blood Pressure 150/67 H 153/69 H Pulse Oximetry 100 100 100 08/25/17 21:00 08/25/17 22:00 08/25/17 23:00 Temperature Pulse Rate 60 60 60 Respiratory Rate 17 14 17 Blood Pressure 153/67 H 147/64 H 148/64 H Pulse Oximetry 100 100 100 08/25/17 23:16 08/25/17 23:22 08/26/17 00:00 Temperature 37.7 C H Pulse Rate 61 60 Respiratory Rate 18 18 Blood Pressure 155/67 H Pulse Oximetry 100 100 08/26/17 01:00 08/26/17 02:00 08/26/17 03:00 Temperature Pulse Rate 60 60 60 Respiratory Rate Blood Pressure 154/67 H 152/66 H 150/79 H Pulse Oximetry 100 100 08/26/17 03:54 08/26/17 04:00 08/26/17 05:00 Temperature 37.9 C H Pulse Rate 65 59 L 59 L Respiratory Rate 22 Blood Pressure 132/62 128/61 Pulse Oximetry 100 08/26/17 06:00 08/26/17 08:00 Temperature Pulse Rate 59 L Respiratory Rate 27 H Blood Pressure 113/56 L Pulse Oximetry 100 Intake & Output 08/25/17 08/26/17 08/26/17 18:59 06:59 18:59 Intake Total 1023 / 1023 Output Total 0 / 0 25 / 25 2381 / 2381 Balance 1023 / 1023 177 / 177 -2381 / -2381 Weight 78.5 kg Intake: IV 725 / 725 Cordarone Inj 450 MG In D5W Inj 225 / 225 50 / 50 241 ML @ 1 MG/MIN 33.33 mls/hr IV.CONT .Q7H31M [facility] Rx#: [id number] Lidocaine/D5W 2000 mg/500 mL 350 / 350 Premix Inj 2,000 mg In 500 ml @ 2 MG/MIN 30 mls/hr IV.CONT . [id number] [facility] Rx#:[id number] Cerebyx Inj 100 MGPE In NS Inj 52 / 52 50 ML @ 208 mls/hr IV.SIG Q8H [facility] Rx#:[id number] Cerebyx Inj 1,000 MGPE In NS 50 / 50 Inj 50 ML @ 280 mls/hr IV.SIG ONCE ONE Rx#:[id number] Keppra 1000 mg/100 mL Premix 100 / 100 100 ML @ 400 mls/hr IV.SIG NOW ONE Rx#:[id number] Keppra 500 mg/100 mL Premix 100 100 / 100 ML @ 400 mls/hr IV.SIG Q12H [facility] Rx#:[id number] Oral 0 / 0 Tube Feeding 238 / 238 Water Bolus Amount 60 / 60 Output: Urine 0 / 0 Stool 25 / 25 Peritoneal Amount 2381 / 2381 Gastric Drainage 0 / 0 Orogastric Tube 0 / 0 Other: Date of Last Bowel Movement 08/24/17 08/24/17 # Bowel Movements 1 # Incontinent Bowel Movements 2 Result Diagrams: 08/26/17 08:40 08/26/17 08:40 Objective Remarks: GENERAL: 82-year-old male currently resting in bed orotracheally intubated SKIN: Warm and dry. stage III developing on the sacrum. HEAD: Atraumatic. Normocephalic. EYES: Pupils equal and round. No scleral icterus. No injection or drainage. ENT: No nasal bleeding or discharge. Mucous membranes pink and moist. NECK: Trachea midline. No JVD. CARDIOVASCULAR: paced rhythm at 60. Currently without murmur. RESPIRATORY: No accessory muscle use. Clear to auscultation. Breath sounds equal bilaterally. GASTROINTESTINAL: Abdomen soft, non-tender, nondistended. Peritoneal catheters placed and clean dry and intact MUSCULOSKELETAL: Extremities with trace upper and lower extremity. Chronic venous stasis bilateral lower extremities with multiple dried scabs. NEUROLOGICAL: RASS -3. off sedation. not following commands. no w/d to pain. pupils deviated to the left, equal, 2mm, round, reactive. Assessment and Plan - Assessment and Plan Plan: Assessment: 82yM with recurrent VT s/p AICD, course complicated by new acute CVA , acute hypoxic respiratory failure, and now worsening acute encephalopathy. could be consistent with viral myocarditis/encephalitis. await laboratory data. continue supportive care. repeat EEG and and follow phenytoin levels. remains very critically ill with persistent neuro deficits and acute encephalopathy compounding his ongoing acute medical issues. NEURO/PSYCH: Acute encephalopathy- worsening New-onset seizures Acute CVA s/p systemic TPA 08/22 History of bilateral occipital/left cerebellar CVA Major depressive disorder NOS Glaucoma Seizure disorder NOS Monitor neuro status. off sedation Stroke alert called. Dr. Marin consultation appreciated. Received alteplase Stat CT brain 08/22 revealed old left parietal CVA. No acute findings CTA head and neck - negative. EEG 08/25: new acute ictal activity Repeat CT brain 08/23: No acute findings Acetaminophen 650 mg a mouth every 6 hours as needed pain 1 through 10/fever Continue travoprost 0.004% 1 drop each eye at night Holding mirtazapine 15 mg at night/home medication for depression. Resume when/ if clinically indicated cerebyx 150mg iv q8h keppra 1gm iv q12h repeat EEG today Dr. Marin involved LP 08/25: protein 48.4, glucose 72, lymphocyte predominance (88%). gram stain negative. studies pending. RESP: Acute hypoxic and hypercarbic respiratory failure secondary to AMS [facility] 14/02/14/39 Ventilator bundle -Albuterol/ipratropium aerosols every 4 hours with albuterol aerosols every 2 hours as needed for dyspnea No SBT today given altered mentation. CV: Sustained ventricular tachycardia Sinus bradycardia History of atrial fibrillation Elevated troponin Possible acute myocarditis Cardiology is following Dr. Leong, s/p AICD placement 08/20 -Continue Amiodarone at 0.5 mg/min. lidocaine stopped after new-onset seizures. -Carvedilol 6.25mg BID, Plavix 75mg daily- Dr. Leong Continue aspirin 81 mg daily Echo 08/20 showed EF 35-40% 2D echocardiogram 02/26 revealed mild concentric left ventricular hypertrophy. The left ventricular systolic function is normal with an estimated ejection fraction in the range of 55-60%. Mild TR. The estimated pulmonary arterial pressure is 40 mmHg. Continue atorvastatin 80 mg at night. Holding Midodrine 10 mg twice daily Troponin is currently downward trending. Dr. 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 Osman Long Renal is following Continue calcitriol 0.25 mcg daily ID: History of C. difficile -Monitor closely for signs of infection(Fever, WBC) HEME: Normocytic anemia -Monitor CBC, CMP, coags ENDO: Sliding scale insulin with Accu-Cheks to maintain euglycemia/aspart every 6 hours low regimen. TSH 1.85 MSK: PT evaluate and treat PROPH: -Bilateral lower extremity SCDs. Heparin subcu, lansoprazole LINES: -Utilize peripheral IVs, OVERALL IMPRESSION: clinically worse. encephalopathy. persistent hypoxemia, respiratory failure, cardiac electrical dysrhythmias- all life-threatening. critically ill. Critical care time: 34 minutes, exclusive of separately billable procedures.
[2017-08-26] MEDS ORDERED: Potassium Chloride 20 MEQ Pwd Pkt NG/OG ONE (10:00)
[2017-08-26] MEDS: Potassium Chlor 20 mEq Premix 20 MEQ/100 ML PIGGYBACK IV.SIG SCH ×2 (10:16→12:22)
--- NOTE | 2017-08-26 11:49 | P.PNNP ---
Subjective Interval history: Remains intubated. On 45% FiO2. Having EEG. Apparently had 2 seizures while having EEG yesterday. Not on sedation. <Jania Gallagher - Last Filed: 08/26/17 11:37> Physical Exam Vital signs: Vital Signs 08/25/17 11:45 08/25/17 11:52 08/25/17 12:00 Temperature 99.8 F H Pulse Rate 60 60 Respiratory Rate 14 15 Blood Pressure 151/63 H 150/65 H Pulse Oximetry 97 100 99 08/25/17 12:15 08/25/17 12:30 08/25/17 12:39 Temperature Pulse Rate 60 60 60 Respiratory Rate 14 23 19 Blood Pressure 142/62 H 130/57 L 153/67 H Pulse Oximetry 99 100 99 08/25/17 12:45 08/25/17 13:00 08/25/17 13:16 Temperature Pulse Rate 60 60 59 L Respiratory Rate 17 19 24 Blood Pressure 152/67 H 156/67 H 108/51 L Pulse Oximetry 100 100 100 08/25/17 13:30 08/25/17 13:46 08/25/17 14:00 Temperature Pulse Rate 59 L 59 L 59 L Respiratory Rate 17 14 14 Blood Pressure 156/70 H 142/60 H 138/65 Pulse Oximetry 100 100 99 08/25/17 14:15 08/25/17 14:30 08/25/17 14:45 Temperature Pulse Rate 59 L 59 L 59 L Respiratory Rate 14 15 14 Blood Pressure 127/63 132/60 146/67 H Pulse Oximetry 98 99 100 08/25/17 15:00 08/25/17 15:15 08/25/17 15:30 Temperature Pulse Rate 59 L 59 L 59 L Respiratory Rate 18 14 15 Blood Pressure 132/58 L 126/60 114/55 L Pulse Oximetry 99 99 100 08/25/17 15:42 08/25/17 15:45 08/25/17 16:00 Temperature 98.7 F Pulse Rate 59 L 59 L 59 L Respiratory Rate 14 14 14 Blood Pressure 153/70 H 151/67 H Pulse Oximetry 100 100 99 08/25/17 16:15 08/25/17 16:30 08/25/17 16:45 Temperature Pulse Rate 59 L 59 L 59 L Respiratory Rate 14 15 15 Blood Pressure 134/63 125/55 L 160/67 H Pulse Oximetry 100 99 100 08/25/17 17:00 08/25/17 17:08 08/25/17 17:12 Temperature Pulse Rate 60 60 60 Respiratory Rate 21 15 19 Blood Pressure 161/70 H 162/67 H 162/67 H Pulse Oximetry 95 100 100 08/25/17 17:16 18 17:20 08/25/17 17:24 Temperature Pulse Rate 60 60 60 Respiratory Rate 20 20 19 Blood Pressure 150/67 H 159/67 H 157/71 H Pulse Oximetry 93 L 100 100 08/25/17 17:28 08/25/17 17:32 08/25/17 17:36 Temperature Pulse Rate 60 60 60 Respiratory Rate Blood Pressure 156/60 H 170/72 H 169/72 H Pulse Oximetry 92 L 98 100 08/25/17 17:40 08/25/17 17:44 08/25/17 17:48 Temperature Pulse Rate 60 60 60 Respiratory Rate Blood Pressure 165/69 H 171/71 H 166/74 H Pulse Oximetry 100 100 100 08/25/17 17:52 08/25/17 17:56 08/25/17 18:00 Temperature Pulse Rate 60 60 60 Respiratory Rate Blood Pressure 162/71 H 159/66 H Pulse Oximetry 99 100 100 08/25/17 18:01 08/25/17 18:04 08/25/17 18:08 Temperature Pulse Rate 60 60 60 Respiratory Rate Blood Pressure 142/99 H 164/69 H 170/73 H Pulse Oximetry 98 100 100 08/25/17 18:12 18 18:16 08/25/17 19:00 Temperature Pulse Rate 60 60 60 Respiratory Rate 14 Blood Pressure 160/62 H 166/72 H 150/67 H Pulse Oximetry 95 100 100 08/25/17 20:00 08/25/17 20:44 08/25/17 21:00 Temperature 99.5 F Pulse Rate 60 62 60 Respiratory Rate 14 14 17 Blood Pressure 153/69 H 153/67 H Pulse Oximetry 100 100 100 08/25/17 22:00 08/25/17 23:00 08/25/17 23:16 Temperature Pulse Rate 60 60 Respiratory Rate 14 17 18 Blood Pressure 147/64 H 148/64 H Pulse Oximetry 100 100 100 08/25/17 23:22 18 00:00 08/26/17 01:00 Temperature 99.9 F H Pulse Rate 61 60 60 Respiratory Rate 18 Blood Pressure 155/67 H 154/67 H Pulse Oximetry 100 100 08/26/17 02:00 08/26/17 03:00 08/26/17 03:34 Temperature Pulse Rate 60 60 60 Respiratory Rate 23 17 31 H Blood Pressure 152/66 H 150/79 H 166/81 H Pulse Oximetry 100 100 82 L 08/26/17 03:41 08/26/17 03:54 08/26/17 04:00 Temperature 100.3 F H Pulse Rate 60 65 59 L Respiratory Rate 30 H 22 26 H Blood Pressure 131/59 L 132/62 Pulse Oximetry 89 L 100 100 08/26/17 04:20 08/26/17 04:40 08/26/17 05:00 Temperature Pulse Rate 59 L 59 L 59 L Respiratory Rate 19 16 17 Blood Pressure 124/63 122/60 128/61 Pulse Oximetry 100 100 100 08/26/17 05:20 08/26/17 05:40 08/26/17 06:00 Temperature Pulse Rate 59 L 59 L 59 L Respiratory Rate 21 19 16 Blood Pressure 128/62 114/57 L 113/56 L Pulse Oximetry 100 100 100 08/26/17 06:20 08/26/17 06:40 08/26/17 07:00 Temperature Pulse Rate 59 L 59 L 59 L Respiratory Rate 16 22 18 Blood Pressure 112/55 L 117/58 L 108/56 L Pulse Oximetry 100 100 100 08/26/17 07:21 08/26/17 07:40 08/26/17 08:00 Temperature 101 F H Pulse Rate 59 L 59 L 59 L Respiratory Rate 19 16 18 Blood Pressure 129/62 115/58 L 129/65 Pulse Oximetry 100 100 100 08/26/17 08:20 08/26/17 08:40 08/26/17 09:00 Temperature Pulse Rate 59 L 59 L 59 L Respiratory Rate 16 32 H 16 Blood Pressure 116/59 L 126/55 L 130/59 L Pulse Oximetry 100 100 100 08/26/17 09:20 08/26/17 09:53 08/26/17 10:00 Temperature Pulse Rate 59 L 60 60 Respiratory Rate 30 H 20 14 Blood Pressure 140/67 114/58 L 112/53 L Pulse Oximetry 100 100 100 08/26/17 10:20 08/26/17 10:40 08/26/17 11:00 Temperature Pulse Rate 60 60 60 Respiratory Rate 15 14 14 Blood Pressure 108/52 L 97/53 L 112/53 L Pulse Oximetry 100 100 100 Intake & Output 08/25/17 08/26/17 08/26/17 18:59 06:59 18:59 Intake Total 1023 / 1023 / Output Total 0 / 0 25 / 25 2381 / 2381 Balance 1023 / 1023 177 / 177 -2381 / -2381 Weight 78.5 kg Intake: IV 725 / 725 Cordarone Inj 450 MG In D5W Inj 225 / 225 50 / 50 241 ML @ 1 MG/MIN 33.33 mls/hr IV.CONT .Q7H31M [facility] Rx#: [id number] Lidocaine/D5W 2000 mg/500 mL 350 / 350 Premix Inj 2,000 mg In 500 ml @ 2 MG/MIN 30 mls/hr IV.CONT . [id number] [facility] Rx#:[id number] Cerebyx Inj 100 MGPE In NS Inj 52 / 52 50 ML @ 208 mls/hr IV.SIG Q8H [facility] Rx#:[id number] Cerebyx Inj 1,000 MGPE In NS 50 / 50 Inj 50 ML @ 280 mls/hr IV.SIG ONCE ONE Rx#:[id number] Keppra 1000 mg/100 mL Premix 100 / 100 100 ML @ 400 mls/hr IV.SIG NOW ONE Rx#:[id number] Keppra 500 mg/100 mL Premix 100 100 / 100 ML @ 400 mls/hr IV.SIG Q12H [facility] Rx#:[id number] Oral 0 / 0 Tube Feeding 238 / 238 Water Bolus Amount 60 / 60 Output: Urine 0 / 0 Stool 25 / 25 Peritoneal Amount 2381 / 2381 Gastric Drainage 0 / 0 Orogastric Tube 0 / 0 Other: Date of Last Bowel Movement 08/24/17 08/24/17 08/26/17 # Bowel Movements 1 # Incontinent Bowel Movements 2 - Constitutional chronically ill appearing - Routine HEENT Exam Head: Present: normocephalic - Routine Neck Exam Present: supple - Routine Respiratory Exam Present: patient mechanically ventilated, CTA bilaterally - Routine Cardiovascular Exam Present: S1, S2, irregularly irregular Comments: paced, A fib underlying rhythm - Routine Abdominal Exam Present: soft, normoactive bowel sounds Comments: PD catheter in place - Routine Extremities Exam Present: edema Comments: upper extremity edema - Routine Skin Exam Present: intact, warm - Routine Neurological Exam Intubated, unresponsive without sedation. Some slight movements with tactile stimulation. Eyes not opening. - Detailed Neurological Exam: Coma Scale Eye Opening: None Verbal Response: None Motor Response: None [place] Coma Scale Total: 3 - Routine Psychiatric Exam Present: unable to assess <Jania Gallagher - Last Filed: 08/26/17 11:37> Vital signs: Vital Signs 08/25/17 20:00 08/25/17 20:44 08/25/17 21:00 Temperature 99.5 F Pulse Rate 60 62 60 Respiratory Rate 14 14 17 Blood Pressure 153/69 H 153/67 H Pulse Oximetry 100 100 100 08/25/17 22:00 08/25/17 23:00 08/25/17 23:16 Temperature Pulse Rate 60 60 Respiratory Rate 14 17 18 Blood Pressure 147/64 H 148/64 H Pulse Oximetry 100 100 100 08/25/17 23:22 08/26/17 00:00 08/26/17 01:00 Temperature 99.9 F H Pulse Rate 61 60 60 Respiratory Rate 18 Blood Pressure 155/67 H 154/67 H Pulse Oximetry 100 100 08/26/17 02:00 08/26/17 03:00 08/26/17 03:34 Temperature Pulse Rate 60 60 60 Respiratory Rate 23 17 31 H Blood Pressure 152/66 H 150/79 H 166/81 H Pulse Oximetry 100 100 82 L 08/26/17 03:41 08/26/17 03:54 08/26/17 04:00 Temperature 100.3 F H Pulse Rate 60 65 59 L Respiratory Rate 30 H 22 26 H Blood Pressure 131/59 L 132/62 Pulse Oximetry 89 L 100 100 08/26/17 04:20 08/26/17 04:40 08/26/17 05:00 Temperature Pulse Rate 59 L 59 L 59 L Respiratory Rate 19 16 17 Blood Pressure 124/63 122/60 128/61 Pulse Oximetry 100 100 100 08/26/17 05:20 08/26/17 05:40 08/26/17 06:00 Temperature Pulse Rate 59 L 59 L 59 L Respiratory Rate 21 19 16 Blood Pressure 128/62 114/57 L 113/56 L Pulse Oximetry 100 100 100 07/18/18 06:20 08/26/17 06:40 08/26/17 07:00 Temperature Pulse Rate 59 L 59 L 59 L Respiratory Rate 16 22 18 Blood Pressure 112/55 L 117/58 L 108/56 L Pulse Oximetry 100 100 100 08/26/17 07:21 08/26/17 07:40 08/26/17 08:00 Temperature 101 F H Pulse Rate 59 L 59 L 59 L Respiratory Rate 19 16 18 Blood Pressure 129/62 115/58 L 129/65 Pulse Oximetry 100 100 100 08/26/17 08:20 08/26/17 08:40 08/26/17 09:00 Temperature Pulse Rate 59 L 59 L 59 L Respiratory Rate 16 32 H 16 Blood Pressure 116/59 L 126/55 L 130/59 L Pulse Oximetry 100 100 100 08/26/17 09:20 08/26/17 09:53 08/26/17 10:00 Temperature Pulse Rate 59 L 60 60 Respiratory Rate 30 H 20 14 Blood Pressure 140/67 114/58 L 112/53 L Pulse Oximetry 100 100 100 08/26/17 10:20 08/26/17 10:40 08/26/17 11:00 Temperature Pulse Rate 60 60 60 Respiratory Rate 15 14 14 Blood Pressure 108/52 L 97/53 L 112/53 L Pulse Oximetry 100 100 100 08/26/17 11:20 08/26/17 11:40 08/26/17 12:00 Temperature 99.3 F Pulse Rate 60 60 60 Respiratory Rate 16 14 14 Blood Pressure 103/53 L 103/52 L 112/53 L Pulse Oximetry 100 100 100 08/26/17 12:20 08/26/17 12:25 08/26/17 12:40 Temperature Pulse Rate 60 60 Respiratory Rate 14 8 L 20 Blood Pressure 102/53 L 113/56 L Pulse Oximetry 100 100 08/26/17 13:00 08/26/17 13:20 08/26/17 13:41 Temperature Pulse Rate 60 60 60 Respiratory Rate 7 L 28 H 24 Blood Pressure 134/63 100/57 L Pulse Oximetry 100 100 100 08/26/17 14:00 08/26/17 14:21 08/26/17 14:40 Temperature Pulse Rate 60 60 60 Respiratory Rate 14 15 15 Blood Pressure 108/53 L 128/60 110/53 L Pulse Oximetry 100 100 100 08/26/17 15:00 08/26/17 15:20 08/26/17 15:40 Temperature Pulse Rate 60 60 60 Respiratory Rate 14 14 15 Blood Pressure 114/56 L 111/55 L 110/53 L Pulse Oximetry 100 100 100 08/26/17 16:00 08/26/17 16:16 08/26/17 16:20 Temperature Pulse Rate 60 60 Respiratory Rate 15 14 14 Blood Pressure 132/60 106/51 L Pulse Oximetry 100 100 100 08/26/17 16:41 08/26/17 17:00 08/26/17 17:01 Temperature Pulse Rate 60 60 60 Respiratory Rate 14 21 15 Blood Pressure 134/60 135/60 Pulse Oximetry 100 100 100 08/26/17 17:20 08/26/17 18:00 08/26/17 18:20 Temperature Pulse Rate 60 60 60 Respiratory Rate 14 15 19 Blood Pressure 111/54 L 116/57 L 116/58 L Pulse Oximetry 100 100 100 08/26/17 18:40 08/26/17 19:00 08/26/17 19:15 Temperature Pulse Rate 60 60 60 Respiratory Rate 15 17 Blood Pressure 110/56 L Pulse Oximetry 100 100 Intake & Output 08/26/17 08/26/17 08/27/17 06:59 18:59 06:59 Intake Total 498 / 498 Output Total 2781 / 2781 Balance 177 / 177 -2283 / -2283 Weight 78.5 kg Intake: IV 138 / 138 Cordarone Inj 450 MG In D5W Inj 50 / 50 38 / 38 241 ML @ 1 MG/MIN 33.33 mls/hr IV.CONT .Q7H31M [facility] Rx#: [id number] Cerebyx Inj 100 MGPE In NS Inj 52 / 52 50 ML @ 208 mls/hr IV.SIG Q8H [facility] Rx#:[id number] KCl 20 mEq Premix Inj 20 meq In 100 / 100 100 ml @ 50 mls/hr IV.SIG Q2H [facility] Rx#:[id number] Keppra 500 mg/100 mL Premix 100 100 / 100 ML @ 400 mls/hr IV.SIG Q12H [facility] Rx#:[id number] Tube Feeding 360 / 360 Output: Urine 0 / 0 Stool 25 / 25 400 / 400 Peritoneal Amount 2381 / 2381 Other: Date of Last Bowel Movement 08/24/17 08/26/17 # Incontinent Bowel Movements 2 <Gabriel Salcedo - Last Filed: 08/26/17 19:40> Assessment and Plan - Assessment (1) End stage renal disease Code(s): N18.6 - End stage renal disease Status: Deleted Plan: Continue nightly PD. He is on for 11 hours, with 6 cycles, 2500 ml fill volume , no last fill. His UF is variable but excellent overnight. Monitor fluid status, he has upper extremity edema. We will use 2.5% solution again tonight. Also monitor electrolytes intermittently. Potassium replacement has been ordered. Phosphorus normalized, not on binders currently. Avoid IVF administration. Gadolinium in contraindicated. Midodrine is being held. (2) Anemia associated with chronic renal failure Code(s): D63.1 - Anemia in chronic kidney disease Status: Acute Plan: No evidence of iron deficiency. Given 20K Epogen 08/25. Transfuse as needed. (3) Seizure Code(s): R56.9 - Unspecified convulsions Status: Acute Plan: EEG being taken. Witnessed seizure activity, neurology following. On Keppra. LP done. (4) Paroxysmal atrial fibrillation Code(s): I48.0 - Paroxysmal atrial fibrillation Status: Acute Plan: Seen by cardiology. A fib with SVR and several episodes of vtach on arrival. s/ p AICD placement 08/19. Off Amiodarone and lidocaine. Now on the ventilator. (5) History of CVA (cerebrovascular accident) Code(s): Z86.73 - Personal history of transient ischemic attack (TIA), and cerebral infarction without residual deficits Status: Deleted Plan: Received TPA. Neurology managing. Currently unresponsive. - Plan His overall prognosis is poor. He has been hospitalized most of the past year. Functional decline as well. At risk for morbidity and mortality. <Jania Gallagher - Last Filed: 08/26/17 11:37> - Assessment (1) End stage renal disease Code(s): N18.6 - End stage renal disease Status: Deleted (2) Anemia associated with chronic renal failure Code(s): D63.1 - Anemia in chronic kidney disease Status: Acute (3) Seizure Code(s): R56.9 - Unspecified convulsions Status: Acute (4) Paroxysmal atrial fibrillation Code(s): I48.0 - Paroxysmal atrial fibrillation Status: Acute (5) History of CVA (cerebrovascular accident) Code(s): Z86.73 - Personal history of transient ischemic attack (TIA), and cerebral infarction without residual deficits Status: Deleted - Attending Attestation patient was seen and examined. Agree with above assessment and plan. Replace potassium. Continue PD, we used 2.5% dextrose PD solution. Good UF. Overall his prognosis is poor. <Gabriel Salcedo - Last Filed: 08/26/17 19:40>
--- NOTE | 2017-08-26 15:01 | P.CONID ---
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 He is sp AICD placement and therefore can not have MRI done Few days ago he developped mental status change and new onset seizures He has serial non contrasted CTs of brain and showed old pariatel infarts on the L but no new infarct LP was done: just 2 WBC, borderline elevated protein (48) and nl glc cultures with no growth - final He has a h/o c.diff and has diarrhea , requiring dignishield Today pt had a fever of 101.2 + endotracheal secretions reported by 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 assembler of Systems unobtainable due to mental status PMFSH - History History Provided By: Medical Record - Medical History Medical History: Medical History (Last Reviewed 10/26/17 @ 12:59 by Dorys Oconnor MD) Anemia Aphasia Atrial fibrillation Chest pain Clostridium difficile carrier Dyspnea Glaucoma Hypoxemia Major depression Pleural cavity effusion Pneumonia CAD (coronary artery disease) COPD (chronic obstructive pulmonary disease) CVA (cerebral vascular accident) Depression End stage renal disease HTN (hypertension) Heart failure Hypotension Peritoneal dialysis catheter in place - Surgical History Surgical History: Surgical History (Last Reviewed 10/26/17 @ 12:59 by Dorys Oconnor MD) Hx of tonsillectomy - Family History Family History: Family History (Last Updated 10/26/17 @ 13:00 by Dorys Oconnor MD) Other Family history non-contributory No pertinent family history - Social History I have reviewed the patient's Social History: Yes - Tobacco History Second Hand Smoke Exposure: No Tobacco Use In Past 30 Days: No Smoking Status: Never smoker - Alcohol History How Often Do You Have a Drink Containing Alcohol: Never - Substance Use History Substance History: No History of Abuse - Travel History History of Recent Travel: No Recent Travel in the [place] Within the Last 8 Weeks: No Recent Travel Out of the Country Within the Last 8 Weeks: No - Immunization History Tetanus Immunization: Unsure Hx Influenza Vaccine This Season: Yes Medications and Allergies Active Medications: Active Medications Acetaminophen (Tylenol) 650 mg PO Q6H PRN PRN Reason: PAIN 1-10 OR TEMP > 100.4 F Last Admin: 08/26/17 08:43 Dose: 650 mg Al Hydroxide/Mg Hydroxide (Milk Of Magnbasia Liq) 30 ml PO Q12H PRN PRN Reason: Mild Constipation Albuterol (Albuterol Neb (Prn)) 2.5 mg NEB Q2HR NEB PRN PRN Reason: DYSPNEA Amiodarone HCl (Cordarone) 400 mg PO Q12HR [facility] Last Admin: 08/26/17 08:54 Dose: 400 mg Artificial Tears (Genteal Severe Dry Eye Relief 0.3% Opth Gel) 1 drops EACH EYE TID [facility] Last Admin: 08/26/17 12:24 Dose: 1 drops Aspirin (Aspirin Chew) 81 mg PO DAILY [facility] Last Admin: 08/26/17 08:45 Dose: 81 mg Atorvastatin Calcium (Lipitor) 80 mg PO HS [facility] Last Admin: 08/25/17 21:08 Dose: 80 mg Calcitriol (Calctriol Liq) 0.25 mcg PO DAILY [facility] Last Admin: 08/26/17 08:47 Dose: 0.25 mcg Carvedilol (Coreg) 12.5 mg PO BID [facility] Last Admin: 08/26/17 08:44 Dose: 12.5 mg Chlorhexidine Gluconate (Peridex 0.12% Oral Kit) 15 ml OROPHARYNG BID@0800, 2000 [facility] Last Admin: 08/26/17 08:47 Dose: 15 ml Clopidogrel Bisulfate (Plavix) 75 mg PO DAILY [facility] Last Admin: 08/26/17 08:46 Dose: 75 mg Dextrose (D50w Vial) 50 ml IV.PUSH UNSCH PRN PRN Reason: PER HYPOGLYCEMIA PROTOCOL Glucagon (Glucagon Inj) 1 mg OTHER PRN PRN PRN Reason: for Hypoglycemia Protocol Heparin Sodium (Porcine) (Heparin Inj) 1,000 units OTHER UNSCH PRN PRN Reason: WITH PERITONEAL DIALYSIS Heparin Sodium (Porcine) (Heparin Inj) 5,000 units SQ Q12HR [facility] Last Admin: 08/26/17 08:56 Dose: 5,000 units Propofol (Diprivan 1000 Mg/100 Ml Inj) 1,000 mg in 100 mls @ 2.175 mls/hr IV.CONT TITRATE PRN; Protocol PRN Reason: Per Protocol Fentanyl (Fentanyl 10 Mcg/Ml Premix Drip) 2,500 mcg in 250 mls @ 5 mls/hr IV.SIG TITRATE PRN; Protocol PRN Reason: Per Protocol Nicardipine HCl 25 mg/ Sodium (Chloride) 250 mls @ 50 mls/hr IV.CONT TITRATE PRN; Protocol PRN Reason: Per Protocol Fosphenytoin Sodium 150 mgpe/ (Sodium Chloride) 53 mls @ 208 mls/hr IV.SIG Q8H [facility] Levetiracetam 500 mg/ Sodium (Chloride) 105 mls @ 420 mls/hr IV.SIG Q12H [facility] Last Admin: 08/26/17 09:39 Dose: 420 mls/hr Insulin Aspart (Novolog Insulin Suppl Scale Inj) 0 unit SQ Q6HR [facility]; Protocol Last Admin: 08/26/17 12:23 Dose: 1 unit Labetalol HCl (Trandate Inj) 10 mg IV.PUSH Q2H PRN PRN Reason: SBP>180, DBP>100, HR>65 Last Admin: 08/24/17 15:37 Dose: 10 mg Lactulose (Lactulose Liq) 30 ml PO DAILY PRN PRN Reason: SEVERE CONSITIPATION Lactulose (Lactulose Liq) 30 ml PO DAILY [facility] Last Admin: 08/26/17 08:43 Dose: 30 ml Lansoprazole (Prevacid Solutab) 30 mg NG/OG DAILY [facility] Last Admin: 08/26/17 08:45 Dose: 30 mg Latanoprost (Xalatan 0.005% Opth Drops) 1 drop EACH EYE HS [facility] Last Admin: 08/25/17 21:16 Dose: 1 drop Morphine Sulfate (Morphine Inj) 2 mg IV.PUSH Q4H PRN PRN Reason: BREAKTHROUGH PAIN Last Admin: 08/24/17 16:26 Dose: 2 mg Polyethylene Glycol (Miralax) 17 gm PO BID [facility] Last Admin: 08/26/17 09:02 Dose: 17 gm Senna/Docusate Sodium (Chelle-Colace) 1 tab PO BID [facility] Last Admin: 08/26/17 08:51 Dose: Not Given Sennosides (Senokot) 17.2 mg PO Q12H PRN PRN Reason: Moderate Constipation Sodium Chloride (Ns Flush) 10 ml IV.FLUSH UNSCH PRN PRN Reason: WITH PERITONEAL DIALYSIS Sodium Chloride (Ns Flush) 2 ml IV.FLUSH BID [facility] Last Admin: 08/26/17 08:46 Dose: 2 ml Sodium Chloride (Ns Flush) 2 ml IV.FLUSH PRN PRN PRN Reason: FLUSH AFTER USING IV ACCESS Allergies Allergy/AdvReac Type Severity Reaction Status Date / Time No Known Allergies Allergy Verified 08/19/17 11:38 Home Medications Medication Instructions Recorded Confirmed Type clopidogrel [Plavix] 75 mg PO DAILY 08/19/17 08/19/17 History midodrine 10 mg PO BID 08/19/17 08/19/17 History mirtazapine [Remeron] 15 mg PO DAILY 08/19/17 08/19/17 History propantheline 15 mg PO DAILY 08/19/17 08/19/17 History Exam Vital signs: Vital Signs 08/25/17 14:45 08/25/17 15:00 08/25/17 15:15 Temperature Pulse Rate 59 L 59 L 59 L Respiratory Rate 14 18 14 Blood Pressure 146/67 H 132/58 L 126/60 Pulse Oximetry 100 99 99 08/25/17 15:30 08/25/17 15:42 08/25/17 15:45 Temperature Pulse Rate 59 L 59 L 59 L Respiratory Rate 15 14 14 Blood Pressure 114/55 L 153/70 H Pulse Oximetry 100 100 100 08/25/17 16:00 08/25/17 16:15 08/25/17 16:30 Temperature 98.7 F Pulse Rate 59 L 59 L 59 L Respiratory Rate 14 14 15 Blood Pressure 151/67 H 134/63 125/55 L Pulse Oximetry 99 100 99 08/25/17 16:45 08/25/17 17:00 08/25/17 17:08 Temperature Pulse Rate 59 L 60 60 Respiratory Rate 15 21 15 Blood Pressure 160/67 H 161/70 H 162/67 H Pulse Oximetry 100 95 100 08/25/17 17:12 08/25/17 17:16 08/25/17 17:20 Temperature Pulse Rate 60 60 60 Respiratory Rate 19 20 20 Blood Pressure 162/67 H 150/67 H 159/67 H Pulse Oximetry 100 93 L 100 08/25/17 17:24 08/25/17 17:28 08/25/17 17:32 Temperature Pulse Rate 60 60 60 Respiratory Rate 19 Blood Pressure 157/71 H 156/60 H 170/72 H Pulse Oximetry 100 92 L 98 08/25/17 17:36 08/25/17 17:40 08/25/17 17:44 Temperature Pulse Rate 60 60 60 Respiratory Rate Blood Pressure 169/72 H 165/69 H 171/71 H Pulse Oximetry 100 100 100 08/25/17 17:48 08/25/17 17:52 08/25/17 17:56 Temperature Pulse Rate 60 60 60 Respiratory Rate Blood Pressure 166/74 H 162/71 H 159/66 H Pulse Oximetry 100 99 100 08/25/17 18:00 08/25/17 18:01 08/25/17 18:04 Temperature Pulse Rate 60 60 60 Respiratory Rate Blood Pressure 142/99 H 164/69 H Pulse Oximetry 100 98 100 08/25/17 18:08 08/25/17 18:12 08/25/17 18:16 Temperature Pulse Rate 60 60 60 Respiratory Rate Blood Pressure 170/73 H 160/62 H 166/72 H Pulse Oximetry 100 95 100 08/25/17 19:00 08/25/17 20:00 08/25/17 20:44 Temperature 99.5 F Pulse Rate 60 60 62 Respiratory Rate 14 14 14 Blood Pressure 150/67 H 153/69 H Pulse Oximetry 100 100 100 08/25/17 21:00 08/25/17 22:00 08/25/17 23:00 Temperature Pulse Rate 60 60 60 Respiratory Rate 17 14 17 Blood Pressure 153/67 H 147/64 H 148/64 H Pulse Oximetry 100 100 100 08/25/17 23:16 08/25/17 23:22 08/26/17 00:00 Temperature 99.9 F H Pulse Rate 61 60 Respiratory Rate 18 18 Blood Pressure 155/67 H Pulse Oximetry 100 100 08/26/17 01:00 08/26/17 02:00 08/26/17 03:00 Temperature Pulse Rate 60 60 60 Respiratory Rate 23 17 Blood Pressure 154/67 H 152/66 H 150/79 H Pulse Oximetry 100 100 100 08/26/17 03:34 08/26/17 03:41 08/26/17 03:54 Temperature Pulse Rate 60 60 65 Respiratory Rate 31 H 30 H 22 Blood Pressure 166/81 H 131/59 L Pulse Oximetry 82 L 89 L 100 08/26/17 04:00 08/26/17 04:20 08/26/17 04:40 Temperature 100.3 F H Pulse Rate 59 L 59 L 59 L Respiratory Rate 26 H 19 16 Blood Pressure 132/62 124/63 122/60 Pulse Oximetry 100 100 100 08/26/17 05:00 08/26/17 05:20 08/26/17 05:40 Temperature Pulse Rate 59 L 59 L 59 L Respiratory Rate 17 21 19 Blood Pressure 128/61 128/62 114/57 L Pulse Oximetry 100 100 100 08/26/17 06:00 08/26/17 06:20 08/26/17 06:40 Temperature Pulse Rate 59 L 59 L 59 L Respiratory Rate 16 16 22 Blood Pressure 113/56 L 112/55 L 117/58 L Pulse Oximetry 100 100 100 08/26/17 07:00 08/26/17 07:21 08/26/17 07:40 Temperature Pulse Rate 59 L 59 L 59 L Respiratory Rate 18 19 16 Blood Pressure 108/56 L 129/62 115/58 L Pulse Oximetry 100 100 100 08/26/17 08:00 08/26/17 08:20 08/26/17 08:40 Temperature 101 F H Pulse Rate 59 L 59 L 59 L Respiratory Rate 18 16 32 H Blood Pressure 129/65 116/59 L 126/55 L Pulse Oximetry 100 100 100 08/26/17 09:00 08/26/17 09:20 08/26/17 09:53 Temperature Pulse Rate 59 L 59 L 60 Respiratory Rate 16 30 H 20 Blood Pressure 130/59 L 140/67 114/58 L Pulse Oximetry 100 100 100 08/26/17 10:00 08/26/17 10:20 08/26/17 10:40 Temperature Pulse Rate 60 60 60 Respiratory Rate 14 15 14 Blood Pressure 112/53 L 108/52 L 97/53 L Pulse Oximetry 100 100 100 08/26/17 11:00 08/26/17 11:20 08/26/17 11:40 Temperature Pulse Rate 60 60 60 Respiratory Rate 14 16 14 Blood Pressure 112/53 L 103/53 L 103/52 L Pulse Oximetry 100 100 100 08/26/17 12:00 08/26/17 12:20 08/26/17 12:25 Temperature 99.3 F Pulse Rate 60 60 Respiratory Rate 14 14 8 L Blood Pressure 112/53 L 102/53 L Pulse Oximetry 100 100 08/26/17 12:40 08/26/17 13:00 08/26/17 13:20 Temperature Pulse Rate 60 60 60 Respiratory Rate 20 7 L 28 H Blood Pressure 113/56 L 134/63 Pulse Oximetry 100 100 100 08/26/17 13:41 08/26/17 14:00 Temperature Pulse Rate 60 60 Respiratory Rate 24 14 Blood Pressure 100/57 L 108/53 L Pulse Oximetry 100 100 Intake & Output 08/25/17 08/26/17 08/26/17 18:59 06:59 18:59 Intake Total 1023 / 1023 202 / 202 138 / 138 Output Total 0 / 0 25 / 25 2381 / 2381 Balance 1023 / 1023 177 / 177 -2243 / -2243 Weight 78.5 kg Intake: IV 725 / 725 202 / 202 138 / 138 Cordarone Inj 450 MG In D5W Inj 225 / 225 50 / 50 38 / 38 241 ML @ 1 MG/MIN 33.33 mls/hr IV.CONT .[id number] [facility] Rx#: [id number] Lidocaine/D5W 2000 mg/500 mL 350 / 350 Premix Inj 2,000 mg In 500 ml @ 2 MG/MIN 30 mls/hr IV.CONT . [id number] [facility] Rx#:[id number] Cerebyx Inj 100 MGPE In NS Inj 52 / 52 50 ML @ 208 mls/hr IV.SIG Q8H [facility] Rx#:[id number] Cerebyx Inj 1,000 MGPE In NS 50 / 50 Inj 50 ML @ 280 mls/hr IV.SIG ONCE ONE Rx#:[id number] KCl 20 mEq Premix Inj 20 meq In 100 / 100 100 ml @ 50 mls/hr IV.SIG Q2H [facility] Rx#:[id number] Keppra 1000 mg/100 mL Premix 100 / 100 100 ML @ 400 mls/hr IV.SIG NOW ONE Rx#:[id number] Keppra 500 mg/100 mL Premix 100 100 / 100 ML @ 400 mls/hr IV.SIG Q12H [facility] Rx#:[id number] Oral 0 / 0 Tube Feeding 238 / 238 Water Bolus Amount 60 / 60 Output: Urine 0 / 0 Stool 25 / 25 Peritoneal Amount 2381 / 2381 Gastric Drainage 0 / 0 Orogastric Tube 0 / 0 Other: Date of Last Bowel Movement 08/24/17 08/24/17 08/26/17 # Bowel Movements 1 # Incontinent Bowel Movements 2 - Constitutional obtunded Comments: sedated - Routine HEENT Exam Head: Present: normocephalic, atraumatic Eye: Present: PERRL ENT: Present: mucous membranes moist, oropharynx clear Comments: constricted pupil;s - orally intubated - Routine Neck Exam Present: supple Comments: no lymphadenopathy - Routine Chest/Breast/Axilla Exam Comments: L sided AICD in place, incision clean, no purulence, no redness - Routine Respiratory Exam Present: patient mechanically ventilated, CTA bilaterally - Routine Cardiovascular Exam Present: RRR, S1, S2 Comments: no murmurs, rubs, gallops well perfused perifery - Routine Abdominal Exam Present: soft, normoactive bowel sounds Comments: no tenderss, + mild distension no masses nd no organomegaly PD cath in plaxce, site OK - Routine Extremities Exam Comments: no cyanosys, clubbing, edema - Routine Skin Exam Present: intact, normal turgor - Routine Neurological Exam heavily sedated and unresponsive - Routine Psychiatric Exam Present: unable to assess Results - Labs CBC & Chem 7: 08/29/17 04:56 08/29/17 04:56 Labs: Laboratory Results - last 24 hr 08/25/17 08/25/17 08/25/17 17:33 17:33 17:33 WBC RBC Hgb Hct MCV MCH MCHC RDW Plt Count MPV Sodium Potassium Chloride Carbon Dioxide Anion Gap BUN Creatinine Estimated GFR POC Glucose Random Glucose Calcium Phosphorus Magnesium Total Bilirubin AST ALT Alkaline Phosphatase Total Protein Albumin CSF Volume (1) 4.0 CSF Supernat Color (1) Clear CSF Gross Blood (1) 0 CSF Volume (2) 2.0 CSF Supernat Color (2) Clear CSF Gross Blood (2) 0 CSF Volume (3) 2.0 CSF Supernat Color (3) Clear CSF Volume (4) 2.0 CSF Supernat Color (4) Clear CSF WBC (4) 2 CSF RBC (4) 3 H CSF Neutrophils % 4 CSF Lymphocytes % 88 CSF Monocytes % 8 CSF Glucose CSF Total Protein CSF N.mening B/E.coli K1 Cancelled CSF N.meningitidis A/Y Cancelled Stl C.difficile Tox PCR St C. diff Tox Epid 027 Phenytoin 4.2 L Bacterial Ag Source Cancelled H.influenzae Type B Ag Cancelled N. meningitidis C/W 135 Cancelled Group B Strep Antigen Cancelled S. pneumoniae Antigen Cancelled 08/25/17 08/25/17 08/25/17 17:33 17:33 18:30 WBC RBC Hgb Hct MCV MCH MCHC RDW Plt Count MPV Sodium Potassium Chloride Carbon Dioxide Anion Gap BUN Creatinine Estimated GFR POC Glucose 134 H Random Glucose Calcium Phosphorus Magnesium Total Bilirubin AST ALT Alkaline Phosphatase Total Protein Albumin CSF Volume (1) CSF Supernat Color (1) CSF Gross Blood (1) CSF Volume (2) CSF Supernat Color (2) CSF Gross Blood (2) CSF Volume (3) CSF Supernat Color (3) CSF Volume (4) CSF Supernat Color (4) CSF WBC (4) CSF RBC (4) CSF Neutrophils % CSF Lymphocytes % CSF Monocytes % CSF Glucose 74 CSF Total Protein 48.4 H CSF N.mening B/E.coli K1 CSF N.meningitidis A/Y Stl C.difficile Tox PCR St C. diff Tox Epid 027 Phenytoin Bacterial Ag Source H.influenzae Type B Ag N. meningitidis C/W 135 Group B Strep Antigen S. pneumoniae Antigen 08/26/17 08/26/17 08/26/17 05:38 05:41 08:40 WBC 13.2 H RBC 2.33 L Hgb 7.8 L Hct 23.1 L MCV 99.1 MCH 33.4 MCHC 33.7 RDW 15.0 Plt Count 198 MPV 7.3 Sodium Potassium Chloride Carbon Dioxide Anion Gap BUN Creatinine Estimated GFR POC Glucose 153 H Random Glucose Calcium Phosphorus Magnesium Total Bilirubin AST ALT Alkaline Phosphatase Total Protein Albumin CSF Volume (1) CSF Supernat Color (1) CSF Gross Blood (1) CSF Volume (2) CSF Supernat Color (2) CSF Gross Blood (2) CSF Volume (3) CSF Supernat Color (3) CSF Volume (4) CSF Supernat Color (4) CSF WBC (4) CSF RBC (4) CSF Neutrophils % CSF Lymphocytes % CSF Monocytes % CSF Glucose CSF Total Protein CSF N.mening B/E.coli K1 CSF N.meningitidis A/Y Stl C.difficile Tox PCR St C. diff Tox Epid 027 Phenytoin 7.3 L Bacterial Ag Source H.influenzae Type B Ag N. meningitidis C/W 135 Group B Strep Antigen S. pneumoniae Antigen 08/26/17 08/26/17 08/26/17 08:40 08:40 11:12 WBC RBC Hgb Hct MCV MCH MCHC RDW Plt Count MPV Sodium 136 Potassium 2.7 L* Chloride 99 Carbon Dioxide 19.7 L Anion Gap 17 H BUN 24 H Creatinine 6.22 H Estimated GFR 9 L POC Glucose Random Glucose 108 H Calcium 8.6 Phosphorus 3.1 Magnesium 2.2 Total Bilirubin 0.4 AST 13 L ALT Less than 6 L Alkaline Phosphatase 57 Total Protein 5.8 L Albumin 2.3 L CSF Volume (1) CSF Supernat Color (1) CSF Gross Blood (1) CSF Volume (2) CSF Supernat Color (2) CSF Gross Blood (2) CSF Volume (3) CSF Supernat Color (3) CSF Volume (4) CSF Supernat Color (4) CSF WBC (4) CSF RBC (4) CSF Neutrophils % CSF Lymphocytes % CSF Monocytes % CSF Glucose CSF Total Protein CSF N.mening B/E.coli K1 CSF N.meningitidis A/Y Stl C.difficile Tox PCR Positive H St C. diff Tox Epid 027 Positive H Phenytoin Bacterial Ag Source H.influenzae Type B Ag N. meningitidis C/W 135 Group B Strep Antigen S. pneumoniae Antigen 08/26/17 12:09 WBC RBC Hgb Hct MCV MCH MCHC RDW Plt Count MPV Sodium Potassium Chloride Carbon Dioxide Anion Gap BUN Creatinine Estimated GFR POC Glucose 157 H Random Glucose Calcium Phosphorus Magnesium Total Bilirubin AST ALT Alkaline Phosphatase Total Protein Albumin CSF Volume (1) CSF Supernat Color (1) CSF Gross Blood (1) CSF Volume (2) CSF Supernat Color (2) CSF Gross Blood (2) CSF Volume (3) CSF Supernat Color (3) CSF Volume (4) CSF Supernat Color (4) CSF WBC (4) CSF RBC (4) CSF Neutrophils % CSF Lymphocytes % CSF Monocytes % CSF Glucose CSF Total Protein CSF N.mening B/E.coli K1 CSF N.meningitidis A/Y Stl C.difficile Tox PCR St C. diff Tox Epid 027 Phenytoin Bacterial Ag Source H.influenzae Type B Ag N. meningitidis C/W 135 Group B Strep Antigen S. pneumoniae Antigen - Imaging Impressions Head CT 08/25/17 08:31 CONCLUSION: Chronic small vessel ischemic and atrophic changes. Chest X-Ray 08/19/17 11:35 CONCLUSION: Minimal parenchymal changes left base suspicious for inflammatory process. Mild compensated cardiomegaly Chest X-Ray 08/20/17 00:00 CONCLUSION: Pacing/AICD device in place from the left subclavian approach. Left medial base atelectasis or consolidation. Chest X-Ray 08/22/17 00:00 CONCLUSION: Interval intubation with endotracheal tube appropriate in position. Improved aeration of the lungs with persistent left lower lobe airspace consolidation/ atelectasis or small pleural fluid. Head CTA 08/22/17 00:00 CONCLUSION: 1. Negative CTA Head. Neck CTA 08/22/17 00:00 CONCLUSION: 1. Negative CTA Carotid. Head CT 08/22/17 07:04 CONCLUSION: 1. Stable diffuse white matter atrophic changes and old left-sided parietal infarct. Head CT 08/23/17 10:00 CONCLUSION: No evidence of acute intracranial pathology. No masses are identified. Old left -sided infarcts as above Head CT 08/25/17 08:31 CONCLUSION: Chronic small vessel ischemic and atrophic changes. Assessment and Plan - Plan Myocardittis Vfib/V tach No e/o [employer] infection by CSF labwork and imaging studies Acute VDRF C./diff ESRD/PD start oral vancomycin sputum clx blood clx CXR
[2017-08-26] MEDS: Fosphenytoin Inj 150 MGPE in Sodium Chlor 0.9% Inj 50 ML IV.SIG SCH (16:31)
--- NOTE | 2017-08-26 17:29 | XR ---
EXAM DATE: 08/26/2017 5:23 PM EDT AGE/SEX: 82 years / Male INDICATIONS: . Cough CLINICAL DATA: This is the patient's subsequent encounter. Patient reports that signs and symptoms h ave been present for 4 - 6 days and indicates a pain score of Nonresponsive. MEDICAL/SURGICAL HISTORY: Non-responsive. Pacemaker. COMPARISON: [facility], CHEST 1V SINGLE AP, 08/22/2017. . FINDINGS: There is an endotracheal tube in place. There is no pneumothorax. There continue to be some bibasal i nfiltrates, left greater than right. These findings are not significant change compared to the prior study. The heart size is stable. There is a pacemaker overlying the left chest. CONCLUSION: There continues to be some bibasal infiltrates, left greater than right. No significant change compared to the prior study. Electronically signed by: Gregory Mayo MD 08/26/2017 5:28 PM EDT
[2017-08-26] MEDS ORDERED: Vancomycin 25 MG/ML Oral Liq 100 mL Bottle PO SCH (18:00)
--- NOTE | 2017-08-26 21:38 | MG ---
cc: Roney Shane MD, Mandeep MD EEG NUMBER [id number] 4-5 Hz activity, 20-40 microvolts, low-amplitude delta activity occurring as well in a generalized fashion. Good EEG variability reactivity. Faster beta activity occurring at C45 90. Limited driving with photic stimulation. Single lead EKG showing sinus rhythm. INTERPRETATION: Moderate encephalopathy, improved from previous electroencephalogram. Clinical correlation. MD WILLA Moffett/ , 09:13 PM , 09:36 PM
[2017-08-26] MEDS: Latanoprost 0.005% Opth Drops 2.5 ML Bottle EACH EYE SCH (22:15)
[2017-08-27] MEDS: Oral Hygiene Kit OROPHARYNG SCH ×4 (01:09→16:09)
[2017-08-27] MEDS: Insulin NovoLOG Aspart Correctional Sugar Inj SQ SCH ×4 (01:16→18:35)
[2017-08-27] MEDS: Fosphenytoin Inj 150 MGPE in Sodium Chlor 0.9% Inj 50 ML IV.SIG SCH ×3 (07:59→16:08)
[2017-08-27] MEDS: Heparin - SQ 10,000 UNITS/ML Vial SQ SCH ×2 (08:03→20:12)
[2017-08-27] MEDS: Carvedilol 6.25 MG Tablet PO SCH ×2 (08:08→20:11)
[2017-08-27] MEDS: Polyethylene Glycol 3350 17 GM Packet PO SCH ×2 (08:09→20:13)
[2017-08-27] MEDS: Amiodarone 200 MG Tablet PO SCH ×2 (08:09→20:11)
[2017-08-27] MEDS: Chlorhexidine 0.12% Oral Kit 15 ML UDC OROPHARYNG SCH ×2 (08:10→20:11)
[2017-08-27] MEDS: CALCITRIOL PO SCH (08:14)
[2017-08-27] MEDS: Hypromellose 0.3% Opth Gel 10 GM Bottle EACH EYE SCH ×3 (08:16→18:35)
[2017-08-27] MEDS: Senna/Docusate Sodium 8.6/50 MG Tablet PO SCH ×2 (08:16→20:13)
[2017-08-27 09:17] LABS: Hematocrit 24.6 % (39.0-51.0); Hemoglobin 8.1 gm/dL (13.0-17.0); Mean Corpuscular Hemoglobin 33.1 pg (27.0-34.0); Mean Corpuscular Volume 100.3 fL (80.0-100.0); Mean Platelet Volume 7.6 fL (7.0-11.0); Platelet Count 211 th/mm3 (150-450); Red Blood Count 2.45 mil/mm3 (4.50-5.90); Red Cell Distribution Width 15.4 % (11.6-17.2); White Blood Count 19.1 th/mm3 (4.0-11.0)
[2017-08-27 09:30] LABS: Calcium 8.7 mg/dL (8.5-10.1); Carbon Dioxide 19.9 meq/L (21.0-32.0); Potassium 3.4 meq/L (3.5-5.1)
[2017-08-27] MEDS: Labetalol HCl Inj 100 MG/20 ML Vial IV.PUSH PRN (10:09)
--- NOTE | 2017-08-27 10:44 | P.PNCA ---
Subjective Interval history: Intubated. Minimally responsive. Physical Exam Vital signs: Vital Signs 08/26/17 11:00 08/26/17 11:20 08/26/17 11:40 Temperature Pulse Rate 60 60 60 Respiratory Rate 14 16 14 Blood Pressure 112/53 L 103/53 L 103/52 L Pulse Oximetry 100 100 100 08/26/17 12:00 08/26/17 12:20 08/26/17 12:25 Temperature 99.3 F Pulse Rate 60 60 Respiratory Rate 14 14 8 L Blood Pressure 112/53 L 102/53 L Pulse Oximetry 100 100 08/26/17 12:40 08/26/17 13:00 08/26/17 13:20 Temperature Pulse Rate 60 60 60 Respiratory Rate 20 7 L 28 H Blood Pressure 113/56 L 134/63 Pulse Oximetry 100 100 100 08/26/17 13:41 08/26/17 14:00 08/26/17 14:21 Temperature Pulse Rate 60 60 60 Respiratory Rate 24 14 15 Blood Pressure 100/57 L 108/53 L 128/60 Pulse Oximetry 100 100 100 08/26/17 14:40 08/26/17 15:00 08/26/17 15:20 Temperature Pulse Rate 60 60 60 Respiratory Rate 15 14 14 Blood Pressure 110/53 L 114/56 L 111/55 L Pulse Oximetry 100 100 100 08/26/17 15:40 08/26/17 16:00 08/26/17 16:16 Temperature Pulse Rate 60 60 Respiratory Rate 15 15 14 Blood Pressure 110/53 L 132/60 Pulse Oximetry 100 100 100 08/26/17 16:20 08/26/17 16:41 08/26/17 17:00 Temperature Pulse Rate 60 60 60 Respiratory Rate 14 14 21 Blood Pressure 106/51 L 134/60 Pulse Oximetry 100 100 100 08/26/17 17:01 08/26/17 17:20 08/26/17 18:00 Temperature Pulse Rate 60 60 60 Respiratory Rate 15 14 15 Blood Pressure 135/60 111/54 L 116/57 L Pulse Oximetry 100 100 100 08/26/17 18:20 08/26/17 18:40 08/26/17 19:00 Temperature Pulse Rate 60 60 60 Respiratory Rate 19 15 16 Blood Pressure 116/58 L 110/56 L Pulse Oximetry 100 100 100 08/26/17 19:15 08/26/17 20:00 08/26/17 21:00 Temperature 99.4 F Pulse Rate 60 60 59 L Respiratory Rate Blood Pressure 134/61 117/58 L Pulse Oximetry 100 100 08/26/17 21:47 08/26/17 22:00 08/26/17 23:00 Temperature Pulse Rate 59 L 59 L 59 L Respiratory Rate 15 14 15 Blood Pressure 120/57 L 112/58 L Pulse Oximetry 100 100 08/27/17 00:00 08/27/17 00:44 08/27/17 01:00 Temperature 97.9 F Pulse Rate 59 L 60 Respiratory Rate 14 14 15 Blood Pressure 109/56 L 113/64 Pulse Oximetry 100 100 08/27/17 01:20 08/27/17 01:40 08/27/17 02:00 Temperature Pulse Rate 60 60 60 Respiratory Rate 14 14 15 Blood Pressure 118/57 L 119/58 L 115/59 L Pulse Oximetry 100 100 100 08/27/17 02:12 08/27/17 02:20 08/27/17 02:40 Temperature Pulse Rate 60 60 60 Respiratory Rate 15 14 14 Blood Pressure 115/59 L 114/55 L 113/59 L Pulse Oximetry 100 100 08/27/17 03:00 08/27/17 03:20 08/27/17 03:40 Temperature Pulse Rate 60 60 60 Respiratory Rate 14 14 15 Blood Pressure 105/56 L 128/63 131/63 Pulse Oximetry 100 100 99 08/27/17 04:00 08/27/17 04:09 08/27/17 04:20 Temperature 100.2 F H Pulse Rate 60 60 Respiratory Rate 14 15 15 Blood Pressure 127/59 L 120/57 L Pulse Oximetry 100 100 99 08/27/17 04:40 08/27/17 05:00 08/27/17 05:21 Temperature Pulse Rate 60 60 60 Respiratory Rate 14 14 14 Blood Pressure 128/60 144/66 H 133/62 Pulse Oximetry 100 98 100 08/27/17 05:40 08/27/17 06:00 08/27/17 06:20 Temperature Pulse Rate 60 59 L 59 L Respiratory Rate 16 14 14 Blood Pressure 136/65 129/60 137/64 Pulse Oximetry 100 100 100 08/27/17 06:40 08/27/17 07:00 08/27/17 07:20 Temperature Pulse Rate 59 L 60 60 Respiratory Rate 14 30 H 20 Blood Pressure 154/75 H 130/69 127/65 Pulse Oximetry 100 99 08/27/17 07:40 08/27/17 08:00 08/27/17 08:01 Temperature 99.6 F Pulse Rate 59 L 62 72 Respiratory Rate 16 18 20 Blood Pressure 167/78 H 157/68 H 157/68 H Pulse Oximetry 84 L 100 100 08/27/17 08:20 08/27/17 08:41 08/27/17 09:00 Temperature Pulse Rate 59 L 68 61 Respiratory Rate 16 18 15 Blood Pressure 156/72 H 178/74 H Pulse Oximetry 98 100 99 08/27/17 09:01 08/27/17 09:20 08/27/17 09:29 Temperature Pulse Rate 61 63 Respiratory Rate 15 16 14 Blood Pressure 138/67 143/75 H Pulse Oximetry 99 100 100 08/27/17 09:40 08/27/17 10:00 Temperature Pulse Rate 65 65 Respiratory Rate 26 H 34 H Blood Pressure 157/76 H Pulse Oximetry 99 100 Intake & Output 08/26/17 08/27/17 08/27/17 18:59 06:59 18:59 Intake Total 656 / 656 512 / 512 Output Total 2781 / 2781 400 / 400 Balance -2125 / -2125 112 / 112 Weight 82 kg Intake: IV 296 / 296 158 / 158 Cordarone Inj 450 MG In D5W Inj 38 / 38 241 ML @ 1 MG/MIN 33.33 mls/hr IV.CONT .Q7H31M [facility] Rx#: [id number] Cerebyx Inj 150 MGPE In NS Inj 53 / 53 53 / 53 50 ML @ 208 mls/hr IV.SIG Q8H [facility] Rx#:[id number] KCl 20 mEq Premix Inj 20 meq In 100 / 100 100 ml @ 50 mls/hr IV.SIG Q2H [facility] Rx#:[id number] Keppra Inj 500 MG In NS Inj 100 105 / 105 105 / 105 ML @ 420 mls/hr IV.SIG Q12H [facility] Rx#:[id number] Tube Feeding 360 / 360 354 / 354 Output: Stool 400 / 400 400 / 400 Peritoneal Amount 2381 / 2381 Other: Date of Last Bowel Movement 08/26/17 08/27/17 08/27/17 - Constitutional no acute distress - Routine Neck Exam Absent: JVD - Routine Respiratory Exam Present: CTA bilaterally - Routine Cardiovascular Exam Present: RRR, S1, S2. Absent: murmur, gallop - Routine Abdominal Exam Present: soft, normoactive bowel sounds. Absent: organomegaly - Routine Extremities Exam Absent: cyanosis, clubbing, edema Assessment and Plan - Assessment (1) Sustained ventricular tachycardia Code(s): I47.2 - Ventricular tachycardia Status: Deleted Plan: Stable past ~72 hours. No further VT/VF. Remains on oral Amiodarone. Echo reviewed, agree EF 35-40%. EF on echo 08/16/17 at [facility] 55%. REC continue same; discharge dose of Amiodarone should be 400 mg daily will f/u as needed (2) Coronary artery disease Code(s): I25.10 - Atherosclerotic heart disease of [place] coronary artery without angina pectoris Status: Chronic Plan: Stable CAD status. No definite recent angina. Continue Plavix, aspirin. Nuclear stress test images from [facility] 08/17/17 reviewed; they are completely normal. (3) Cardiomyopathy Code(s): I42.9 - Cardiomyopathy, unspecified Status: Acute Plan: Echo this admission reviewed, agree EF reduced to ~35-40% with global hypokinesis. EF on echo 08/16/17 normal. Continue carvedilol. No SHAUNNA-I or ARB with CRI. (4) Paroxysmal atrial fibrillation Code(s): I48.0 - Paroxysmal atrial fibrillation Status: Acute Plan: Not well documented history of atrial fibrillation. Can track any future atrial fibrillation via ICD transmissions. No atrial fibrillation during current admission. Continue daily aspirin. Continue Amiodarone as for his ventricular tachyarrhythmias - Plan Code Status: Alternative code (2) Coronary artery disease Qualifiers: Coronary Disease-Associated Artery/Lesion type: [place] artery [place] vs. transplanted heart: [place] heart Associated angina: without angina Qualified Code(s): I25.10 - Atherosclerotic heart disease of [place] coronary artery without angina pectoris (3) Cardiomyopathy Qualifiers: Cardiomyopathy type: unspecified Qualified Code(s): I42.9 - Cardiomyopathy, unspecified
[2017-08-27] MEDS ORDERED: Potassium Chlor 20 mEq Premix 20 MEQ/100 ML PIGGYBACK IV.SIG ONE (11:00)
[2017-08-27] MEDS ORDERED: Labetalol HCl Inj 100 MG/20 ML Vial IV.PUSH ONE (12:00)
--- NOTE | 2017-08-27 12:18 | P.PNID ---
Subjective Remarks: large amount of secretions tolerates CPAP not on pressors still having Vtach stool output 400-500 cc /24 hrs afebrile Antibiotics: vanco po Allergies/Adverse Reactions: Allergies No Known Allergies Allergy (Verified 08/19/17 11:38) Objective Vital Signs 08/26/17 12:20 08/26/17 12:25 08/26/17 12:40 Temperature Pulse Rate 60 60 Respiratory Rate 14 8 L 20 Blood Pressure 102/53 L 113/56 L Pulse Oximetry 100 100 08/26/17 13:00 08/26/17 13:20 08/26/17 13:41 Temperature Pulse Rate 60 60 60 Respiratory Rate 7 L 28 H 24 Blood Pressure 134/63 100/57 L Pulse Oximetry 100 100 100 08/26/17 14:00 08/26/17 14:21 08/26/17 14:40 Temperature Pulse Rate 60 60 60 Respiratory Rate 14 15 15 Blood Pressure 108/53 L 128/60 110/53 L Pulse Oximetry 100 100 100 08/26/17 15:00 08/26/17 15:20 08/26/17 15:40 Temperature Pulse Rate 60 60 60 Respiratory Rate 14 14 15 Blood Pressure 114/56 L 111/55 L 110/53 L Pulse Oximetry 100 100 100 08/26/17 16:00 08/26/17 16:16 08/26/17 16:20 Temperature Pulse Rate 60 60 Respiratory Rate 15 14 14 Blood Pressure 132/60 106/51 L Pulse Oximetry 100 100 100 08/26/17 16:41 08/26/17 17:00 08/26/17 17:01 Temperature Pulse Rate 60 60 60 Respiratory Rate 14 21 15 Blood Pressure 134/60 135/60 Pulse Oximetry 100 100 100 08/26/17 17:20 08/26/17 18:00 08/26/17 18:20 Temperature Pulse Rate 60 60 60 Respiratory Rate 14 15 19 Blood Pressure 111/54 L 116/57 L 116/58 L Pulse Oximetry 100 100 100 08/26/17 18:40 08/26/17 19:00 08/26/17 19:15 Temperature Pulse Rate 60 60 60 Respiratory Rate 15 16 Blood Pressure 110/56 L Pulse Oximetry 100 100 08/26/17 20:00 08/26/17 21:00 08/26/17 21:47 Temperature 99.4 F Pulse Rate 60 59 L 59 L Respiratory Rate 15 Blood Pressure 134/61 117/58 L Pulse Oximetry 100 100 08/26/17 22:00 08/26/17 23:00 08/27/17 00:00 Temperature 97.9 F Pulse Rate 59 L 59 L 59 L Respiratory Rate 14 15 14 Blood Pressure 120/57 L 112/58 L 109/56 L Pulse Oximetry 100 100 08/27/17 00:44 08/27/17 01:00 08/27/17 01:20 Temperature Pulse Rate 60 60 Respiratory Rate 14 15 14 Blood Pressure 113/64 118/57 L Pulse Oximetry 100 100 100 08/27/17 01:40 08/27/17 02:00 08/27/17 02:12 Temperature Pulse Rate 60 60 60 Respiratory Rate 14 15 15 Blood Pressure 119/58 L 115/59 L 115/59 L Pulse Oximetry 100 100 08/27/17 02:20 08/27/17 02:40 08/27/17 03:00 Temperature Pulse Rate 60 60 60 Respiratory Rate 14 14 14 Blood Pressure 114/55 L 113/59 L 105/56 L Pulse Oximetry 100 100 100 08/27/17 03:20 08/27/17 03:40 08/27/17 04:00 Temperature 100.2 F H Pulse Rate 60 60 60 Respiratory Rate 14 15 14 Blood Pressure 128/63 131/63 127/59 L Pulse Oximetry 100 99 100 08/27/17 04:09 08/27/17 04:20 08/27/17 04:40 Temperature Pulse Rate 60 60 Respiratory Rate 15 15 14 Blood Pressure 120/57 L 128/60 Pulse Oximetry 100 99 100 08/27/17 05:00 08/27/17 05:21 08/27/17 05:40 Temperature Pulse Rate 60 60 60 Respiratory Rate 14 14 16 Blood Pressure 144/66 H 133/62 136/65 Pulse Oximetry 98 100 100 08/27/17 06:00 08/27/17 06:20 08/27/17 06:40 Temperature Pulse Rate 59 L 59 L 59 L Respiratory Rate 14 14 14 Blood Pressure 129/60 137/64 154/75 H Pulse Oximetry 100 100 100 08/27/17 07:00 08/27/17 07:20 08/27/17 07:40 Temperature Pulse Rate 60 60 59 L Respiratory Rate 30 H 20 16 Blood Pressure 130/69 127/65 167/78 H Pulse Oximetry 99 84 L 08/27/17 08:00 08/27/17 08:01 08/27/17 08:20 Temperature 99.6 F Pulse Rate 62 72 59 L Respiratory Rate 18 20 16 Blood Pressure 157/68 H 157/68 H 156/72 H Pulse Oximetry 100 100 98 08/27/17 08:41 08/27/17 09:00 08/27/17 09:01 Temperature Pulse Rate 68 61 61 Respiratory Rate 18 15 15 Blood Pressure 178/74 H 138/67 Pulse Oximetry 100 99 99 08/27/17 09:20 08/27/17 09:29 08/27/17 09:40 Temperature Pulse Rate 63 65 Respiratory Rate 16 14 26 H Blood Pressure 143/75 H 157/76 H Pulse Oximetry 100 100 99 08/27/17 10:00 08/27/17 10:04 08/27/17 10:20 Temperature Pulse Rate 65 84 71 Respiratory Rate 34 H 32 H 26 H Blood Pressure 190/83 H 162/90 H Pulse Oximetry 100 97 99 08/27/17 10:32 08/27/17 10:40 08/27/17 10:56 Temperature Pulse Rate 69 71 80 Respiratory Rate 25 H 15 14 Blood Pressure 158/67 H 167/87 H 166/72 H Pulse Oximetry 100 100 99 08/27/17 11:00 08/27/17 11:01 Temperature Pulse Rate 79 68 Respiratory Rate 14 14 Blood Pressure 154/67 H Pulse Oximetry 99 99 Intake & Output 08/26/17 08/27/17 08/27/17 18:59 06:59 18:59 Intake Total 656 / 656 512 / 512 Output Total 2781 / 2781 400 / 400 Balance -2125 / -2125 112 / 112 Weight 82 kg Intake: IV 296 / 296 158 / 158 Cordarone Inj 450 MG In D5W Inj 38 / 38 241 ML @ 1 MG/MIN 33.33 mls/hr IV.CONT .Q7H31M [facility] Rx#: [id number] Cerebyx Inj 150 MGPE In NS Inj 53 / 53 53 / 53 50 ML @ 208 mls/hr IV.SIG Q8H [facility] Rx#:[id number] KCl 20 mEq Premix Inj 20 meq In 100 / 100 100 ml @ 50 mls/hr IV.SIG Q2H [facility] Rx#:[id number] Keppra Inj 500 MG In NS Inj 100 105 / 105 105 / 105 ML @ 420 mls/hr IV.SIG Q12H [facility] Rx#:[id number] Tube Feeding 360 / 360 354 / 354 Output: Stool 400 / 400 400 / 400 Peritoneal Amount 2381 / 2381 Other: Date of Last Bowel Movement 08/26/17 08/27/17 08/27/17 08/26/17 17:21 Sputum - Endotracheal Gram Stain - Final 08/26/17 17:21 Sputum - Endotracheal Sputum Culture - Pending 08/25/17 17:33 Lumbar Puncture Gram Stain - Final 08/25/17 17:33 Lumbar Puncture CSF Culture - Preliminary No growth in 48 hours 08/27/17 04:40 Blood - Peripheral Aerobic Blood Culture - Pending 08/27/17 04:40 Blood - Peripheral Anaerobic Blood Culture - Pending 08/27/17 04:43 Blood - Peripheral Aerobic Blood Culture - Pending 08/27/17 04:43 Blood - Peripheral Anaerobic Blood Culture - Pending 08/25/17 17:33 Cerebral Spinal Fluid - Lumbar Puncture Acid Fast Bacilli Smear - Pending 08/25/17 17:33 Cerebral Spinal Fluid - Lumbar Puncture Mycobacterial Culture - Pending Lab - Hematology Results 08/26/17 08/27/17 08:40 09:00 WBC 13.2 H 19.1 H RBC 2.33 L 2.45 L Hgb 7.8 L 8.1 L Hct 23.1 L 24.6 L MCV 99.1 100.3 H MCH 33.4 33.1 MCHC 33.7 33.0 RDW 15.0 15.4 Plt Count 198 211 MPV 7.3 7.6 Lab - Chemistry Results 08/25/17 08/25/17 08/26/17 13:34 18:30 05:41 Sodium Potassium Chloride Carbon Dioxide Anion Gap BUN Creatinine Estimated GFR POC Glucose 156 H 134 H 153 H Random Glucose Calcium Phosphorus Magnesium Total Bilirubin AST ALT Alkaline Phosphatase Total Protein Albumin 08/26/17 08/26/17 08/26/17 08:40 08:40 12:09 Sodium 136 Potassium 2.7 L* Chloride 99 Carbon Dioxide 19.7 L Anion Gap 17 H BUN 24 H Creatinine 6.22 H Estimated GFR 9 L POC Glucose 157 H Random Glucose 108 H Calcium 8.6 Phosphorus 3.1 Magnesium 2.2 Total Bilirubin 0.4 AST 13 L ALT Less than 6 L Alkaline Phosphatase 57 Total Protein 5.8 L Albumin 2.3 L 08/26/17 08/26/17 08/27/17 18:17 18:33 00:59 Sodium Potassium 3.4 L Chloride Carbon Dioxide Anion Gap BUN Creatinine Estimated GFR POC Glucose 107 144 H Random Glucose Calcium Phosphorus Magnesium Total Bilirubin AST ALT Alkaline Phosphatase Total Protein Albumin 08/27/17 08/27/17 05:27 09:00 Sodium 138 Potassium 3.4 L Chloride 102 Carbon Dioxide 19.9 L Anion Gap 16 H BUN 26 H Creatinine 6.17 H Estimated GFR 9 L POC Glucose 157 H Random Glucose 149 H Calcium 8.7 Phosphorus Magnesium Total Bilirubin AST ALT Alkaline Phosphatase Total Protein Albumin Imaging: ITS Impressions Head CTA 08/22/17 00:00 CONCLUSION: 1. Negative CTA Head. Neck CTA 08/22/17 00:00 CONCLUSION: 1. Negative CTA Carotid. Head CT 08/25/17 08:31 CONCLUSION: Chronic small vessel ischemic and atrophic changes. Chest X-Ray 08/26/17 00:00 CONCLUSION: There continues to be some bibasal infiltrates, left greater than right. No significant change compared to the prior study. Physical Exam: GENERAL: NAD sedated on vent SKIN: Warm and dry. HEAD: Atraumatic. Normocephalic. EYES: Pupils equal and round. No scleral icterus. No injection or drainage. ENT: No nasal bleeding or discharge. Mucous membranes pink and moist. NECK: Trachea midline. No JVD. CARDIOVASCULAR: Regular rate and rhythm. RESPIRATORY: No accessory muscle use. Clear to auscultation. Breath sounds equal bilaterally. GASTROINTESTINAL: Abdomen soft, non-tender, + mildly distended. Hepatic and splenic margins not palpable. dign[place]ield in placwe 2with large amount of lilquid stool MUSCULOSKELETAL: Extremities without clubbing, cyanosis, + 1 edema. No obvious deformities. NEUROLOGICAL: sedated; unresponsive PSYCHIATRIC: unable to assess Assessment and Plan - Plan Myocardittis Vfib/V tach No e/o ON AIR HOST infection by CSF labwork and imaging studies Acute VDRF ? GNB PNA : mod WBC, GNBs on Gstain C./diff ESRD/PD cont oral vancomycin start cefepime 2 gm q 48 add IV flaggyl fu clincaly burak BARRY
[2017-08-27] MEDS ORDERED: Labetalol HCl Inj 100 MG/20 ML Vial IV.PUSH PRN (12:34)
--- NOTE | 2017-08-27 12:39 | P.PNCC ---
Subjective Subjective Remarks/Hospital Course: Patient is an 82-year-old male with a past medical history of hypertension, obstructive sleep apnea, COPD, history of CVA, end-stage renal disease on peritoneal dialysis who was recently admitted to [place] from 05/21/17 to for respiratory failure. He was brought into the emergency department today for multiple episodes of syncope. EMS strips showed several episodes of nonsustained V. tach. In the emergency department patient had a single episode of sustained V. tach, up to 54 seconds, with loss of consciousness. Pads were placed for emergency defibrillation however prior to defibrillation patient regained sinus rhythm and consciousness. Patient was given 150 mg amiodarone bolus IV, followed by amiodarone infusion. Dr. Leong from cardiology was consulted. I evaluated the patient in the emergency department. Patient is lying in bed denies chest pain. He has sinus bradycardia. I reviewed the EMS EKG strips, and the EKG done in the ED. He has sinus bradycardia, and prolonged QT interval. I discussed with Dr. Leong, we will continue amiodarone as this time as the patient responded to amiodarone. Patient will need serial cardiac enzymes, 2D echo, evaluate for AICD placement. Home medications of Midrin and propantheline will be held due to arrhythmias. Dr. Leong will evaluate for AICD placement 08/20: Overnight, 3 minute long episodes of V. tach with intermittent loss of conscious. CPR initiated with chest compressions 3 minutes. Defibrillator with 200 J. Rebolus with amiodarone 150 mg at 1040. Patient still intermittently in V. tach/bradycardic rhythm. Rebolus with 150 mg of amiodarone and currently on amiodarone drip at 1 mg/min. Lidocaine will be the next choice. Currently resting in bed and appears comfortable despite the ongoing unstable rhythm 08/21 Patient went into Vtach/vfib overnight AICD fired x 4 started now on Amio and Lidocaine drips. Afebrile. Awake and alert. 08/22: Afebrile. Last seen normal state of health at 0600. At 606 40, already noticed patient gurgling. A phasic. Both hands were at throat. Able to squeeze bilateral hands/reflexes. Moving left upper extremity spontaneously. No response bilateral lower extremities. Patient emergently intubated and sent for CT brain. Stroke alert was called and Dr. Marin notified. Attempting to notify Dr. Leong. Subjective 08/23: On route to CT brain status post 24 hours alteplase patient went to an unstable rhythm likely V. fib after which she received a shock back into normal sinus rhythm. Currently awake and alert and following commands. Lidocaine drip restarted. Cardiology to be notified. 08/24 Patient remain intubated, off sedation. Afebrile. 08/25: new altered mental status. ?seizure like activity. no VT/VF. 08/26: encephalopathy persists. dilantin level persistently subtherapeutic. re- bolused 50mg phosphenytoin. repeat EEG today. LP with lymphocytic predominance and slightly elevated protein: could be consistent with viral encephalitis. still unable to obtain MRI. remainder of studies pending. 08/27: still very encephalopathic. not following commands. off sedation for many days. now C. Diff positive. no more ictal activity on EEG. Dr. Oconnor does not think [employer] studies c/w infectious etiology. Objective Vital Signs / I&O: Vital Signs 08/26/17 12:40 08/26/17 13:00 08/26/17 13:20 Temperature Pulse Rate 60 60 60 Respiratory Rate 20 7 L 28 H Blood Pressure 113/56 L 134/63 Pulse Oximetry 100 100 100 08/26/17 13:41 08/26/17 14:00 08/26/17 14:21 Temperature Pulse Rate 60 60 60 Respiratory Rate 24 14 15 Blood Pressure 100/57 L 108/53 L 128/60 Pulse Oximetry 100 100 100 08/26/17 14:40 08/26/17 15:00 08/26/17 15:20 Temperature Pulse Rate 60 60 60 Respiratory Rate 15 14 14 Blood Pressure 110/53 L 114/56 L 111/55 L Pulse Oximetry 100 100 100 08/26/17 15:40 08/26/17 16:00 08/26/17 16:16 Temperature Pulse Rate 60 60 Respiratory Rate 15 15 14 Blood Pressure 110/53 L 132/60 Pulse Oximetry 100 100 100 08/26/17 16:20 08/26/17 16:41 08/26/17 17:00 Temperature Pulse Rate 60 60 60 Respiratory Rate 14 14 21 Blood Pressure 106/51 L 134/60 Pulse Oximetry 100 100 100 08/26/17 17:01 08/26/17 17:20 08/26/17 18:00 Temperature Pulse Rate 60 60 60 Respiratory Rate 15 14 15 Blood Pressure 135/60 111/54 L 116/57 L Pulse Oximetry 100 100 100 08/26/17 18:20 08/26/17 18:40 08/26/17 19:00 Temperature Pulse Rate 60 60 60 Respiratory Rate 19 15 16 Blood Pressure 116/58 L 110/56 L Pulse Oximetry 100 100 100 08/26/17 19:15 08/26/17 20:00 08/26/17 21:00 Temperature 37.4 C Pulse Rate 60 60 59 L Respiratory Rate Blood Pressure 134/61 117/58 L Pulse Oximetry 100 100 08/26/17 21:47 08/26/17 22:00 08/26/17 23:00 Temperature Pulse Rate 59 L 59 L 59 L Respiratory Rate 15 14 15 Blood Pressure 120/57 L 112/58 L Pulse Oximetry 100 100 08/27/17 00:00 08/27/17 00:44 08/27/17 01:00 Temperature 36.6 C Pulse Rate 59 L 60 Respiratory Rate 14 14 15 Blood Pressure 109/56 L 113/64 Pulse Oximetry 100 100 08/27/17 01:20 08/27/17 01:40 08/27/17 02:00 Temperature Pulse Rate 60 60 60 Respiratory Rate 14 14 15 Blood Pressure 118/57 L 119/58 L 115/59 L Pulse Oximetry 100 100 100 08/27/17 02:12 08/27/17 02:20 08/27/17 02:40 Temperature Pulse Rate 60 60 60 Respiratory Rate 15 14 14 Blood Pressure 115/59 L 114/55 L 113/59 L Pulse Oximetry 100 100 08/27/17 03:00 08/27/17 03:20 08/27/17 03:40 Temperature Pulse Rate 60 60 60 Respiratory Rate 14 14 15 Blood Pressure 105/56 L 128/63 131/63 Pulse Oximetry 100 100 99 08/27/17 04:00 08/27/17 04:09 08/27/17 04:20 Temperature 37.9 C H Pulse Rate 60 60 Respiratory Rate 14 15 15 Blood Pressure 127/59 L 120/57 L Pulse Oximetry 100 100 99 08/27/17 04:40 08/27/17 05:00 08/27/17 05:21 Temperature Pulse Rate 60 60 60 Respiratory Rate 14 14 14 Blood Pressure 128/60 144/66 H 133/62 Pulse Oximetry 100 98 100 08/27/17 05:40 08/27/17 06:00 08/27/17 06:20 Temperature Pulse Rate 60 59 L 59 L Respiratory Rate 16 14 14 Blood Pressure 136/65 129/60 137/64 Pulse Oximetry 100 100 100 08/27/17 06:40 08/27/17 07:00 08/27/17 07:20 Temperature Pulse Rate 59 L 60 60 Respiratory Rate 14 30 H 20 Blood Pressure 154/75 H 130/69 127/65 Pulse Oximetry 100 99 08/27/17 07:40 08/27/17 08:00 08/27/17 08:01 Temperature 37.6 C Pulse Rate 59 L 62 72 Respiratory Rate 16 18 20 Blood Pressure 167/78 H 157/68 H 157/68 H Pulse Oximetry 84 L 100 100 08/27/17 08:20 08/27/17 08:41 08/27/17 09:00 Temperature Pulse Rate 59 L 68 61 Respiratory Rate 16 18 15 Blood Pressure 156/72 H 178/74 H Pulse Oximetry 98 100 99 08/27/17 09:01 08/27/17 09:20 08/27/17 09:29 Temperature Pulse Rate 61 63 Respiratory Rate 15 16 14 Blood Pressure 138/67 143/75 H Pulse Oximetry 99 100 100 08/27/17 09:40 08/27/17 10:00 08/27/17 10:04 Temperature Pulse Rate 65 65 84 Respiratory Rate 26 H 34 H 32 H Blood Pressure 157/76 H 190/83 H Pulse Oximetry 99 100 97 08/27/17 10:20 08/27/17 10:32 08/27/17 10:40 Temperature Pulse Rate 71 69 71 Respiratory Rate 26 H 25 H 15 Blood Pressure 162/90 H 158/67 H 167/87 H Pulse Oximetry 99 100 100 08/27/17 10:56 08/27/17 11:00 08/27/17 11:01 Temperature Pulse Rate 80 79 68 Respiratory Rate 14 14 14 Blood Pressure 166/72 H 154/67 H Pulse Oximetry 99 99 99 Intake & Output 08/26/17 08/27/17 08/27/17 18:59 06:59 18:59 Intake Total 656 / 656 512 / 512 Output Total 2781 / 2781 400 / 400 Balance -5 / -2125 112 / 112 Weight 82 kg Intake: IV 296 / 296 158 / 158 Cordarone Inj 450 MG In D5W Inj 38 / 38 241 ML @ 1 MG/MIN 33.33 mls/hr IV.CONT .Q7H31M [facility] Rx#: [id number] Cerebyx Inj 150 MGPE In NS Inj 53 / 53 53 / 53 50 ML @ 208 mls/hr IV.SIG Q8H [facility] Rx#:[id number] KCl 20 mEq Premix Inj 20 meq In 100 / 100 100 ml @ 50 mls/hr IV.SIG Q2H [facility] Rx#:[id number] Keppra Inj 500 MG In NS Inj 100 105 / 105 105 / 105 ML @ 420 mls/hr IV.SIG Q12H [facility] Rx#:[id number] Tube Feeding 360 / 360 354 / 354 Output: Stool 400 / 400 400 / 400 Peritoneal Amount 2381 / 2381 Other: Date of Last Bowel Movement 08/26/17 08/27/17 08/27/17 Result Diagrams: 08/27/17 09:00 08/27/17 09:00 Objective Remarks: GENERAL: 82-year-old male currently resting in bed orotracheally intubated SKIN: Warm and dry. stage III developing on the sacrum. HEAD: Atraumatic. Normocephalic. EYES: Pupils equal and round. No scleral icterus. No injection or drainage. ENT: No nasal bleeding or discharge. Mucous membranes pink and moist. NECK: Trachea midline. No JVD. CARDIOVASCULAR: paced rhythm at 60. Currently without murmur. RESPIRATORY: No accessory muscle use. Clear to auscultation. Breath sounds equal bilaterally. GASTROINTESTINAL: Abdomen soft, non-tender, nondistended. Peritoneal catheters placed and clean dry and intact MUSCULOSKELETAL: Extremities with trace upper and lower extremity. Chronic venous stasis bilateral lower extremities with multiple dried scabs. NEUROLOGICAL: RASS -3. off sedation. not following commands. now withdrawing to pain. pupils equal, round, reactive, conjugate and midline today. Assessment and Plan - Assessment and Plan Plan: Assessment: 82yM with recurrent VT s/p AICD, course complicated by new acute CVA , acute hypoxic respiratory failure, and acute encephalopathy. further complicated by recurrent C. Difficile colitis. very critically ill. will continue to monitor neuro status closely. could be consistent with viral myocarditis/encephalitis. await laboratory data. continue supportive care. repeat EEG and and follow phenytoin levels. remains very critically ill with persistent neuro deficits and acute encephalopathy compounding his ongoing acute medical issues. NEURO/PSYCH: Acute encephalopathy- persistent New-onset seizures Acute CVA s/p systemic TPA 08/22 History of bilateral occipital/left cerebellar CVA Major depressive disorder NOS Glaucoma Seizure disorder NOS Monitor neuro status. off sedation Stroke alert called. Dr. Marin consultation appreciated. Received alteplase Stat CT brain 08/22 revealed old left parietal CVA. No acute findings CTA head and neck - negative. EEG 08/25: new acute ictal activity Repeat CT brain 08/23: No acute findings Acetaminophen 650 mg a mouth every 6 hours as needed pain 1 through 10/fever Continue travoprost 0.004% 1 drop each eye at night Holding mirtazapine 15 mg at night/home medication for depression. Resume when/ if clinically indicated cerebyx 150mg iv q8h keppra 1gm iv q12h Dr. Marin involved LP 08/25: protein 48.4, glucose 72, lymphocyte predominance (88%). gram stain negative. studies pending. RESP: Acute hypoxic and hypercarbic respiratory failure secondary to [facility] 14/525/02/14/39 Ventilator bundle -Albuterol/ipratropium aerosols every 4 hours with albuterol aerosols every 2 hours as needed for dyspnea start daily SBTs. CV: Sustained ventricular tachycardia Sinus bradycardia History of atrial fibrillation Elevated troponin Possible acute myocarditis Cardiology is following Dr. Leong, s/p AICD placement 08/20 -Continue Amiodarone at 0.5 mg/min. lidocaine stopped after new-onset seizures. -Carvedilol 6.25mg BID, Plavix 75mg daily- Dr. Leong Continue aspirin 81 mg daily Echo 08/20 showed EF 35-40% 2D echocardiogram 02/26 revealed mild concentric left ventricular hypertrophy. The left ventricular systolic function is normal with an estimated ejection fraction in the range of 55-60%. Mild TR. The estimated pulmonary arterial pressure is 40 mmHg. Continue atorvastatin 80 mg at night. Holding Midodrine 10 mg twice daily Troponin is currently downward trending. Dr. 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 Osman Long Renal is following Continue calcitriol 0.25 mcg daily ID: History of C. difficile -Monitor closely for signs of infection(Fever, WBC) HEME: Normocytic anemia -Monitor CBC, CMP, coags ENDO: Sliding scale insulin with Accu-Cheks to maintain euglycemia/aspart every 6 hours low regimen. TSH 1.85 MSK: PT evaluate and treat PROPH: -Bilateral lower extremity SCDs. Heparin subcu, lansoprazole LINES: -Utilize peripheral IVs, OVERALL IMPRESSION: no clinical improvements. encephalopathy. persistent hypoxemia, respiratory failure, cardiac electrical dysrhythmias- all life- threatening. critically ill.
[2017-08-27] MEDS: Acetaminophen 325 MG Tablet PO PRN (16:26)
--- NOTE | 2017-08-27 18:40 | P.PN ---
Subjective Interval history: On mechanical ventilation Physical Exam Vital signs: Vital Signs 08/26/17 18:40 08/26/17 19:00 08/26/17 19:15 Temperature Pulse Rate 60 60 60 Respiratory Rate 15 16 Blood Pressure 110/56 L Pulse Oximetry 100 100 08/26/17 20:00 08/26/17 21:00 08/26/17 21:47 Temperature 99.4 F Pulse Rate 60 59 L 59 L Respiratory Rate 15 Blood Pressure 134/61 117/58 L Pulse Oximetry 100 100 08/26/17 22:00 08/26/17 23:00 08/27/17 00:00 Temperature 97.9 F Pulse Rate 59 L 59 L 59 L Respiratory Rate 14 15 14 Blood Pressure 120/57 L 112/58 L 109/56 L Pulse Oximetry 100 100 08/27/17 00:44 08/27/17 01:00 08/27/17 01:20 Temperature Pulse Rate 60 60 Respiratory Rate 14 15 14 Blood Pressure 113/64 118/57 L Pulse Oximetry 100 100 100 08/27/17 01:40 08/27/17 02:00 08/27/17 02:12 Temperature Pulse Rate 60 60 60 Respiratory Rate 14 15 15 Blood Pressure 119/58 L 115/59 L 115/59 L Pulse Oximetry 100 100 08/27/17 02:20 08/27/17 02:40 08/27/17 03:00 Temperature Pulse Rate 60 60 60 Respiratory Rate 14 14 14 Blood Pressure 114/55 L 113/59 L 105/56 L Pulse Oximetry 100 100 100 08/27/17 03:20 08/27/17 03:40 08/27/17 04:00 Temperature 100.2 F H Pulse Rate 60 60 60 Respiratory Rate 14 15 14 Blood Pressure 128/63 131/63 127/59 L Pulse Oximetry 100 99 100 08/27/17 04:09 08/27/17 04:20 08/27/17 04:40 Temperature Pulse Rate 60 60 Respiratory Rate 15 15 14 Blood Pressure 120/57 L 128/60 Pulse Oximetry 100 99 100 08/27/17 05:00 08/27/17 05:21 08/27/17 05:40 Temperature Pulse Rate 60 60 60 Respiratory Rate 14 14 16 Blood Pressure 144/66 H 133/62 136/65 Pulse Oximetry 98 100 100 08/27/17 06:00 08/27/17 06:20 08/27/17 06:40 Temperature Pulse Rate 59 L 59 L 59 L Respiratory Rate 14 14 14 Blood Pressure 129/60 137/64 154/75 H Pulse Oximetry 100 100 100 08/27/17 07:00 08/27/17 07:20 08/27/17 07:40 Temperature Pulse Rate 60 60 59 L Respiratory Rate 30 H 20 16 Blood Pressure 130/69 127/65 167/78 H Pulse Oximetry 99 84 L 08/27/17 08:00 08/27/17 08:01 08/27/17 08:20 Temperature 99.6 F Pulse Rate 62 72 59 L Respiratory Rate 18 20 16 Blood Pressure 157/68 H 157/68 H 156/72 H Pulse Oximetry 100 100 98 08/27/17 08:41 08/27/17 09:00 08/27/17 09:01 Temperature Pulse Rate 68 61 61 Respiratory Rate 18 15 15 Blood Pressure 178/74 H 138/67 Pulse Oximetry 100 99 99 08/27/17 09:20 08/27/17 09:29 08/27/17 09:40 Temperature Pulse Rate 63 65 Respiratory Rate 16 14 26 H Blood Pressure 143/75 H 157/76 H Pulse Oximetry 100 100 99 08/27/17 10:00 08/27/17 10:04 08/27/17 10:20 Temperature Pulse Rate 65 84 71 Respiratory Rate 34 H 32 H 26 H Blood Pressure 190/83 H 162/90 H Pulse Oximetry 100 97 99 08/27/17 10:32 08/27/17 10:40 08/27/17 10:56 Temperature Pulse Rate 69 71 80 Respiratory Rate 25 H 15 14 Blood Pressure 158/67 H 167/87 H 166/72 H Pulse Oximetry 100 100 99 08/27/17 11:00 08/27/17 11:01 08/27/17 11:20 Temperature Pulse Rate 79 68 78 Respiratory Rate 14 14 14 Blood Pressure 154/67 H 164/81 H Pulse Oximetry 99 99 99 08/27/17 11:40 08/27/17 11:49 08/27/17 12:00 Temperature 99.7 F H Pulse Rate 82 59 L 59 L Respiratory Rate 15 14 14 Blood Pressure 169/101 H 124/59 L 135/64 Pulse Oximetry 100 99 99 08/27/17 12:20 08/27/17 12:41 08/27/17 13:00 Temperature Pulse Rate 60 59 L 62 Respiratory Rate 15 15 24 Blood Pressure 147/68 H 140/65 141/70 H Pulse Oximetry 100 100 100 08/27/17 13:21 08/27/17 13:40 08/27/17 14:00 Temperature Pulse Rate 59 L 59 L 59 L Respiratory Rate 14 14 16 Blood Pressure 138/63 142/65 H 130/63 Pulse Oximetry 100 99 98 08/27/17 14:21 08/27/17 14:40 08/27/17 15:00 Temperature Pulse Rate 59 L 60 61 Respiratory Rate 16 15 21 Blood Pressure 139/63 122/57 L Pulse Oximetry 99 99 99 08/27/17 15:01 08/27/17 15:21 08/27/17 15:40 Temperature Pulse Rate 59 L 62 59 L Respiratory Rate 16 19 14 Blood Pressure 127/57 L 100/55 L 131/63 Pulse Oximetry 99 100 98 08/27/17 16:00 08/27/17 16:20 08/27/17 16:40 Temperature 102.2 F H Pulse Rate 59 L 60 59 L Respiratory Rate 18 14 14 Blood Pressure 130/60 132/63 126/61 Pulse Oximetry 99 99 98 08/27/17 17:00 08/27/17 17:20 08/27/17 17:29 Temperature Pulse Rate 61 61 Respiratory Rate 16 19 18 Blood Pressure 121/60 106/52 L Pulse Oximetry 99 99 99 08/27/17 17:40 08/27/17 18:00 08/27/17 18:20 Temperature Pulse Rate 61 62 62 Respiratory Rate 15 17 16 Blood Pressure 111/53 L 102/54 L 113/59 L Pulse Oximetry 98 99 90 L Intake & Output 08/26/17 08/27/17 08/27/17 18:59 06:59 18:59 Intake Total 656 / 656 512 / 512 53 / 53 Output Total 2781 / 2781 400 / 400 Balance -2125 / -212 112 / 112 53 / 53 Weight 82 kg Intake: IV 296 / 296 158 / 158 53 / 53 Cordarone Inj 450 MG In D5W Inj 38 / 38 241 ML @ 1 MG/MIN 33.33 mls/hr IV.CONT .Q7H31M [facility] Rx#: [id number] Cerebyx Inj 150 MGPE In NS Inj 53 / 53 53 / 53 53 / 53 50 ML @ 208 mls/hr IV.SIG Q8H [facility] Rx#:[id number] KCl 20 mEq Premix Inj 20 meq In 100 / 100 100 ml @ 50 mls/hr IV.SIG Q2H [facility] Rx#:[id number] Keppra Inj 500 MG In NS Inj 100 105 / 105 105 / 105 ML @ 420 mls/hr IV.SIG Q12H [facility] Rx#:[id number] Tube Feeding 360 / 360 354 / 354 Output: Stool 400 / 400 400 / 400 Peritoneal Amount 2381 / 2381 Other: Date of Last Bowel Movement 08/26/17 08/27/17 08/27/17 - Constitutional Comments: Sedated, on mechanical ventilation - Routine HEENT Exam Eye: Present: PERRL ENT: Present: mucous membranes moist - Routine Respiratory Exam Present: patient mechanically ventilated - Routine Cardiovascular Exam Present: RRR, S1, S2 - Routine Abdominal Exam Present: soft - Routine Extremities Exam Comments: [decrease pedal pulses Results - Labs CBC & Chem 7: 08/27/17 09:00 08/27/17 15:15 Laboratory Results - last 24 hr 08/25/17 08/25/17 08/26/17 17:33 17:33 18:33 WBC RBC Hgb Hct MCV MCH MCHC RDW Plt Count MPV Sodium Potassium 3.4 L Chloride Carbon Dioxide Anion Gap BUN Creatinine Estimated GFR POC Glucose Random Glucose Calcium CSF Herpes I DNA (PCR) Negative CSF Herpes II DNA (PCR) Negative Phenytoin CMV Specimen Source Csf CMV DNA Quant PCR Negative 08/27/17 08/27/17 08/27/17 00:59 04:49 05:27 WBC RBC Hgb Hct MCV MCH MCHC RDW Plt Count MPV Sodium Potassium Chloride Carbon Dioxide Anion Gap BUN Creatinine Estimated GFR POC Glucose 144 H 157 H Random Glucose Calcium CSF Herpes I DNA (PCR) CSF Herpes II DNA (PCR) Phenytoin 7.8 L CMV Specimen Source CMV DNA Quant PCR 08/27/17 08/27/17 08/27/17 09:00 09:00 12:59 WBC 19.1 H RBC 2.45 L Hgb 8.1 L Hct 24.6 L MCV 100.3 H MCH 33.1 MCHC 33.0 RDW 15.4 Plt Count 211 MPV 7.6 Sodium 138 Potassium 3.4 L Chloride 102 Carbon Dioxide 19.9 L Anion Gap 16 H BUN 26 H Creatinine 6.17 H Estimated GFR 9 L POC Glucose 216 H Random Glucose 149 H Calcium 8.7 CSF Herpes I DNA (PCR) CSF Herpes II DNA (PCR) Phenytoin CMV Specimen Source CMV DNA Quant PCR 08/27/17 08/27/17 15:15 18:28 WBC RBC Hgb Hct MCV MCH MCHC RDW Plt Count MPV Sodium Potassium 4.0 Chloride Carbon Dioxide Anion Gap BUN Creatinine Estimated GFR POC Glucose 175 H Random Glucose Calcium CSF Herpes I DNA (PCR) CSF Herpes II DNA (PCR) Phenytoin CMV Specimen Source CMV DNA Quant PCR Microbiology 08/26/17 17:21 Sputum - Endotracheal Gram Stain - Final 08/26/17 17:21 Sputum - Endotracheal Sputum Culture - Preliminary Pseudomonas species 08/25/17 17:33 Cerebral Spinal Fluid - Lumbar Puncture Acid Fast Bacilli Smear - Final No acid fast bacilli seen 08/25/17 17:33 Lumbar Puncture Gram Stain - Final 08/25/17 17:33 Lumbar Puncture CSF Culture - Preliminary No growth in 48 hours Assessment and Plan - Assessment (1) Sustained ventricular tachycardia Code(s): I47.2 - Ventricular tachycardia Status: Deleted Plan: In sinus rhythm On mechanical ventilation Lidocaine DC There is some confusion this morning about ventricular fibrillation while moving the patient patient had a pulse. This is apparently noise No other episode during the day No need to interrogate the device yet. Case discussed with Dr Fatima Continue with current meds If there is a VT episode then mexiletine will be considered case also discussed with the nurse (2) Coronary artery disease Code(s): I25.10 - Atherosclerotic heart disease of [place] coronary artery without angina pectoris Status: Chronic Plan: No chest pain Ischemic work up may be necessary (3) Cardiomyopathy Code(s): I42.9 - Cardiomyopathy, unspecified Status: Acute (4) Paroxysmal atrial fibrillation Code(s): I48.0 - Paroxysmal atrial fibrillation Status: Acute Plan: A pacing V sensing (2) Coronary artery disease Qualifiers: Coronary Disease-Associated Artery/Lesion type: [place] artery [place] vs. transplanted heart: [place] heart Associated angina: without angina Qualified Code(s): I25.10 - Atherosclerotic heart disease of [place] coronary artery without angina pectoris (3) Cardiomyopathy Qualifiers: Cardiomyopathy type: unspecified Qualified Code(s): I42.9 - Cardiomyopathy, unspecified
[2017-08-27] MEDS: Latanoprost 0.005% Opth Drops 2.5 ML Bottle EACH EYE SCH (20:15)
[2017-08-28 00:28] LABS: Enterovirus (PCR)Source CSF; Enterovirus RNA Qual (PCR) Negative (Negative)
[2017-08-28] MEDS: Acetaminophen 325 MG Tablet PO PRN ×2 (00:58→06:36)
[2017-08-28] MEDS: Fosphenytoin Inj 150 MGPE in Sodium Chlor 0.9% Inj 50 ML IV.SIG SCH ×3 (00:58→17:57)
[2017-08-28] MEDS: Insulin NovoLOG Aspart Correctional Sugar Inj SQ SCH ×4 (01:01→17:58)
[2017-08-28] MEDS: Oral Hygiene Kit OROPHARYNG SCH ×4 (01:36→17:57)
[2017-08-28 06:45] LABS: Hematocrit 22.4 % (39.0-51.0); Hemoglobin 7.4 gm/dL (13.0-17.0); Mean Corpuscular HGB Conc 32.8 % (32.0-36.0); Mean Corpuscular Hemoglobin 32.7 pg (27.0-34.0); Mean Corpuscular Volume 99.7 fL (80.0-100.0); Mean Platelet Volume 7.8 fL (7.0-11.0); Platelet Count 194 th/mm3 (150-450); Red Blood Count 2.25 mil/mm3 (4.50-5.90); Red Cell Distribution Width 15.6 % (11.6-17.2); White Blood Count 18.6 th/mm3 (4.0-11.0)
--- NOTE | 2017-08-28 06:52 | P.PNID ---
Subjective Remarks: large amount of secretions fevers growing pseudomonas from sputum tolerates CPAP not on pressors still having Vtach cont to have liquid stool afebrile Antibiotics: cefepime vanco po Allergies/Adverse Reactions: Allergies No Known Allergies Allergy (Verified 08/19/17 11:38) Objective Vital Signs 08/27/17 07:00 08/27/17 07:20 08/27/17 07:40 Temperature Pulse Rate 60 60 59 L Respiratory Rate 30 H 20 16 Blood Pressure 130/69 127/65 167/78 H Pulse Oximetry 99 84 L 08/27/17 08:00 08/27/17 08:01 08/27/17 08:20 Temperature 99.6 F Pulse Rate 62 72 59 L Respiratory Rate 18 20 16 Blood Pressure 157/68 H 157/68 H 156/72 H Pulse Oximetry 100 100 98 08/27/17 08:41 08/27/17 09:00 08/27/17 09:01 Temperature Pulse Rate 68 61 61 Respiratory Rate 18 15 15 Blood Pressure 178/74 H 138/67 Pulse Oximetry 100 99 99 08/27/17 09:20 08/27/17 09:29 08/27/17 09:40 Temperature Pulse Rate 63 65 Respiratory Rate 16 14 26 H Blood Pressure 143/75 H 157/76 H Pulse Oximetry 100 100 99 08/27/17 10:00 08/27/17 10:04 08/27/17 10:20 Temperature Pulse Rate 65 84 71 Respiratory Rate 34 H 32 H 26 H Blood Pressure 190/83 H 162/90 H Pulse Oximetry 100 97 99 08/27/17 10:32 08/27/17 10:40 08/27/17 10:56 Temperature Pulse Rate 69 71 80 Respiratory Rate 25 H 15 14 Blood Pressure 158/67 H 167/87 H 166/72 H Pulse Oximetry 100 100 99 08/27/17 11:00 08/27/17 11:01 08/27/17 11:20 Temperature Pulse Rate 79 68 78 Respiratory Rate 14 14 14 Blood Pressure 154/67 H 164/81 H Pulse Oximetry 99 99 99 08/27/17 11:40 08/27/17 11:49 08/27/17 12:00 Temperature 99.7 F H Pulse Rate 82 59 L 59 L Respiratory Rate 15 14 14 Blood Pressure 169/101 H 124/59 L 135/64 Pulse Oximetry 100 99 99 08/27/17 12:20 08/27/17 12:41 08/27/17 13:00 Temperature Pulse Rate 60 59 L 62 Respiratory Rate 15 15 24 Blood Pressure 147/68 H 140/65 141/70 H Pulse Oximetry 100 100 100 08/27/17 13:21 08/27/17 13:40 08/27/17 14:00 Temperature Pulse Rate 59 L 59 L 59 L Respiratory Rate 14 14 16 Blood Pressure 138/63 142/65 H 130/63 Pulse Oximetry 100 99 98 08/27/17 14:21 08/27/17 14:40 08/27/17 15:00 Temperature Pulse Rate 59 L 60 61 Respiratory Rate 16 15 21 Blood Pressure 139/63 122/57 L Pulse Oximetry 99 99 99 08/27/17 15:01 08/27/17 15:21 08/27/17 15:40 Temperature Pulse Rate 59 L 62 59 L Respiratory Rate 16 19 14 Blood Pressure 127/57 L 100/55 L 131/63 Pulse Oximetry 99 100 98 08/27/17 16:00 08/27/17 16:20 08/27/17 16:40 Temperature 102.2 F H Pulse Rate 59 L 60 59 L Respiratory Rate 18 14 14 Blood Pressure 130/60 132/63 126/61 Pulse Oximetry 99 99 98 08/27/17 17:00 08/27/17 17:20 08/27/17 17:29 Temperature Pulse Rate 61 61 Respiratory Rate 16 19 18 Blood Pressure 121/60 106/52 L Pulse Oximetry 99 99 99 08/27/17 17:40 08/27/17 18:00 08/27/17 18:20 Temperature Pulse Rate 61 62 62 Respiratory Rate 15 17 16 Blood Pressure 111/53 L 102/54 L 113/59 L Pulse Oximetry 98 99 90 L 08/27/17 18:40 08/27/17 19:00 08/27/17 20:00 Temperature 100.6 F H Pulse Rate 64 66 68 Respiratory Rate 18 23 16 Blood Pressure 114/55 L 103/62 124/60 Pulse Oximetry 98 100 99 08/27/17 21:00 08/27/17 21:21 08/27/17 22:00 Temperature Pulse Rate 71 77 Respiratory Rate 25 H 26 H 25 H Blood Pressure 157/72 H 145/69 H Pulse Oximetry 97 100 08/27/17 23:00 08/28/17 00:00 08/28/17 00:30 Temperature 102.2 F H Pulse Rate 78 78 78 Respiratory Rate 21 16 24 Blood Pressure 131/75 104/58 L Pulse Oximetry 99 100 08/28/17 01:00 08/28/17 02:00 08/28/17 03:00 Temperature Pulse Rate 76 78 76 Respiratory Rate 17 24 17 Blood Pressure 113/56 L 102/63 91/57 L Pulse Oximetry 98 100 08/28/17 03:56 08/28/17 04:00 Temperature 102.2 F H Pulse Rate 74 Respiratory Rate 24 23 Blood Pressure 114/55 L Pulse Oximetry 100 Intake & Output 08/27/17 08/27/17 08/28/17 06:59 18:59 06:59 Intake Total 512 / 512 647 / 647 673 / 673 Output Total 400 / 400 700 / 700 200 / 200 Balance 112 / 112 -53 / -53 473 / 473 Weight 82 kg 77.5 kg Intake: IV 158 / 158 311 / 311 258 / 258 Cerebyx Inj 150 MGPE In NS Inj 53 / 53 106 / 106 53 / 53 50 ML @ 208 mls/hr IV.SIG Q8H [facility] Rx#:[id number] Keppra Inj 500 MG In NS Inj 100 105 / 105 105 / 105 105 / 105 ML @ 420 mls/hr IV.SIG Q12H [facility] Rx#:[id number] Flagyl 500 MG Inj 100 ML @ 100 100 / 100 100 / 100 mls/hr IV.SIG Q8H MARC Rx#: [id number] Tube Feeding 354 / 354 336 / 336 355 / 355 Water Bolus Amount 60 / 60 Output: Urine 0 / 0 Stool 400 / 400 700 / 700 200 / 200 Other: # Voids 1 Date of Last Bowel Movement 08/27/17 08/27/17 08/28/17 08/26/17 17:21 Sputum - Endotracheal Gram Stain - Final 08/26/17 17:21 Sputum - Endotracheal Sputum Culture - Preliminary Pseudomonas species 08/25/17 17:33 Cerebral Spinal Fluid - Lumbar Puncture Acid Fast Bacilli Smear - Final No acid fast bacilli seen 08/25/17 17:33 Cerebral Spinal Fluid - Lumbar Puncture Mycobacterial Culture - Pending 08/25/17 17:33 Lumbar Puncture Gram Stain - Final 08/25/17 17:33 Lumbar Puncture CSF Culture - Preliminary No growth in 48 hours 08/27/17 04:40 Blood - Peripheral Aerobic Blood Culture - Pending 08/27/17 04:40 Blood - Peripheral Anaerobic Blood Culture - Pending 08/27/17 04:43 Blood - Peripheral Aerobic Blood Culture - Pending 08/27/17 04:43 Blood - Peripheral Anaerobic Blood Culture - Pending Lab - Hematology Results 08/26/17 08/27/17 08/28/17 08:40 09:00 06:26 WBC 13.2 H 19.1 H 18.6 H RBC 2.33 L 2.45 L 2.25 L Hgb 7.8 L 8.1 L 7.4 L Hct 23.1 L 24.6 L 22.4 L MCV 99.1 100.3 H 99.7 MCH 33.4 33.1 32.7 MCHC 33.7 33.0 32.8 RDW 15.0 15.4 15.6 Plt Count 198 211 194 MPV 7.3 7.6 7.8 Lab - Chemistry Results 08/26/17 08/26/17 08/26/17 08:40 08:40 12:09 Sodium 136 Potassium 2.7 L* Chloride 99 Carbon Dioxide 19.7 L Anion Gap 17 H BUN 24 H Creatinine 6.22 H Estimated GFR 9 L POC Glucose 157 H Random Glucose 108 H Calcium 8.6 Phosphorus 3.1 Magnesium 2.2 Total Bilirubin 0.4 AST 13 L ALT Less than 6 L Alkaline Phosphatase 57 Total Protein 5.8 L Albumin 2.3 L 08/26/17 08/26/17 08/27/17 18:17 18:33 00:59 Sodium Potassium 3.4 L Chloride Carbon Dioxide Anion Gap BUN Creatinine Estimated GFR POC Glucose 107 144 H Random Glucose Calcium Phosphorus Magnesium Total Bilirubin AST ALT Alkaline Phosphatase Total Protein Albumin 08/27/17 08/27/17 08/27/17 05:27 09:00 12:59 Sodium 138 Potassium 3.4 L Chloride 102 Carbon Dioxide 19.9 L Anion Gap 16 H BUN 26 H Creatinine 6.17 H Estimated GFR 9 L POC Glucose 157 H 216 H Random Glucose 149 H Calcium 8.7 Phosphorus Magnesium Total Bilirubin AST ALT Alkaline Phosphatase Total Protein Albumin 08/27/17 08/27/17 08/28/17 15:15 18:28 00:48 Sodium Potassium 4.0 Chloride Carbon Dioxide Anion Gap BUN Creatinine Estimated GFR POC Glucose 175 H 311 H Random Glucose Calcium Phosphorus Magnesium Total Bilirubin AST ALT Alkaline Phosphatase Total Protein Albumin 08/28/17 06:04 Sodium Potassium Chloride Carbon Dioxide Anion Gap BUN Creatinine Estimated GFR POC Glucose 227 H Random Glucose Calcium Phosphorus Magnesium Total Bilirubin AST ALT Alkaline Phosphatase Total Protein Albumin Imaging: ITS Impressions Head CTA 08/22/17 00:00 CONCLUSION: 1. Negative CTA Head. Neck CTA 08/22/17 00:00 CONCLUSION: 1. Negative CTA Carotid. Head CT 08/25/17 08:31 CONCLUSION: Chronic small vessel ischemic and atrophic changes. Chest X-Ray 08/26/17 00:00 CONCLUSION: There continues to be some bibasal infiltrates, left greater than right. No significant change compared to the prior study. Physical Exam: GENERAL: NAD sedated on vent SKIN: Warm and dry. HEAD: Atraumatic. Normocephalic. EYES: Pupils equal and round. No scleral icterus. No injection or drainage. ENT: No nasal bleeding or discharge. Mucous membranes pink and moist. NECK: Trachea midline. No JVD. CARDIOVASCULAR: Regular rate and rhythm. RESPIRATORY: No accessory muscle use. Clear to auscultation. Breath sounds equal bilaterally. GASTROINTESTINAL: Abdomen soft, non-tender, + mildly distended. Hepatic and splenic margins not palpable. dignishield in plac e with large amount of liquid stool PD cath in place MUSCULOSKELETAL: Extremities without clubbing, cyanosis, + 1 edema. No obvious deformities. 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 GNB PNA : mod WBC, GNBs on Gstain - more secretions and fever despite of cefepime C./diff ESRD/PD cont oral vancomycin will change cefepime 2 gm to meropenme follow sensitivities on the pseudomonas dc IV flagyl fu clincaly burak RN
[2017-08-28 07:03] LABS: Calcium 8.5 mg/dL (8.5-10.1); Carbon Dioxide 21.2 meq/L (21.0-32.0); Phenytoin (Dilantin) 8.9 mcg/mL (10.0-20.0); Potassium 3.2 meq/L (3.5-5.1)
[2017-08-28] MEDS: Amiodarone 200 MG Tablet PO SCH ×2 (08:30→20:08)
[2017-08-28] MEDS: Heparin - SQ 10,000 UNITS/ML Vial SQ SCH ×2 (08:37→20:08)
[2017-08-28] MEDS: Polyethylene Glycol 3350 17 GM Packet PO SCH ×2 (08:39→20:10)
[2017-08-28] MEDS: Carvedilol 6.25 MG Tablet PO SCH ×3 (08:39→20:08)
[2017-08-28] MEDS: Senna/Docusate Sodium 8.6/50 MG Tablet PO SCH ×2 (08:39→20:09)
[2017-08-28] MEDS: Hypromellose 0.3% Opth Gel 10 GM Bottle EACH EYE SCH ×3 (08:39→17:58)
[2017-08-28] MEDS: Chlorhexidine 0.12% Oral Kit 15 ML UDC OROPHARYNG SCH ×2 (08:39→20:08)
[2017-08-28] MEDS ORDERED: Potassium Chloride 25 MEQ Effervescent Tablet PO ONE (14:15)
[2017-08-28] MEDS: Morphine Inj 4 MG/ML Vial IV.PUSH PRN (14:25)
--- NOTE | 2017-08-28 14:43 | P.PNNP ---
Subjective Interval history: Clinically doing worse. Now with significant stool output from C diff and also having copious secretions. at bedside. Physical Exam Vital signs: Vital Signs 08/27/17 14:40 08/27/17 15:00 08/27/17 15:01 Temperature Pulse Rate 60 61 59 L Respiratory Rate 15 21 16 Blood Pressure 122/57 L 127/57 L Pulse Oximetry 99 99 99 08/27/17 15:21 08/27/17 15:40 08/27/17 16:00 Temperature 102.2 F H Pulse Rate 62 59 L 59 L Respiratory Rate 19 14 18 Blood Pressure 100/55 L 131/63 130/60 Pulse Oximetry 100 98 99 08/27/17 16:20 08/27/17 16:40 08/27/17 17:00 Temperature Pulse Rate 60 59 L 61 Respiratory Rate 14 14 16 Blood Pressure 132/63 126/61 121/60 Pulse Oximetry 99 98 99 08/27/17 17:20 08/27/17 17:29 08/27/17 17:40 Temperature Pulse Rate 61 61 Respiratory Rate 19 18 15 Blood Pressure 106/52 L 111/53 L Pulse Oximetry 99 99 98 08/27/17 18:00 08/27/17 18:20 08/27/17 18:40 Temperature Pulse Rate 62 62 64 Respiratory Rate 17 16 18 Blood Pressure 102/54 L 113/59 L 114/55 L Pulse Oximetry 99 90 L 98 08/27/17 19:00 08/27/17 20:00 08/27/17 21:00 Temperature 100.6 F H Pulse Rate 66 68 71 Respiratory Rate 23 16 25 H Blood Pressure 103/62 124/60 157/72 H Pulse Oximetry 100 99 97 08/27/17 21:21 08/27/17 22:00 08/27/17 23:00 Temperature Pulse Rate 77 78 Respiratory Rate 26 H 25 H 21 Blood Pressure 145/69 H 131/75 Pulse Oximetry 100 99 08/28/17 00:00 08/28/17 00:30 08/28/17 01:00 Temperature 102.2 F H Pulse Rate 78 78 76 Respiratory Rate 16 24 17 Blood Pressure 104/58 L 113/56 L Pulse Oximetry 100 98 08/28/17 02:00 08/28/17 03:00 08/28/17 03:56 Temperature Pulse Rate 78 76 Respiratory Rate 24 17 24 Blood Pressure 102/63 91/57 L Pulse Oximetry 100 100 08/28/17 04:00 08/28/17 05:00 08/28/17 06:00 Temperature 102.2 F H Pulse Rate 74 74 71 Respiratory Rate 23 19 27 H Blood Pressure 114/55 L 99/64 L 102/62 Pulse Oximetry 98 08/28/17 07:00 08/28/17 07:20 08/28/17 07:40 Temperature Pulse Rate 75 72 70 Respiratory Rate 24 Blood Pressure 125/68 115/63 114/63 Pulse Oximetry 95 98 99 08/28/17 08:00 08/28/17 08:20 08/28/17 08:40 Temperature 99.1 F Pulse Rate 69 69 66 Respiratory Rate 24 26 H 25 H Blood Pressure 112/59 L 112/58 L 122/60 Pulse Oximetry 98 98 99 08/28/17 09:00 08/28/17 09:10 08/28/17 09:20 Temperature Pulse Rate 68 68 Respiratory Rate 22 25 H Blood Pressure 113/80 157/68 H Pulse Oximetry 98 08/28/17 10:00 08/28/17 10:20 08/28/17 10:36 Temperature Pulse Rate 67 67 67 Respiratory Rate 18 Blood Pressure 118/61 110/61 Pulse Oximetry 99 99 08/28/17 10:40 08/28/17 11:00 08/28/17 11:20 Temperature Pulse Rate 67 67 66 Respiratory Rate 23 26 H 20 Blood Pressure 116/61 116/57 L 110/57 L Pulse Oximetry 99 99 99 08/28/17 11:40 08/28/17 11:47 08/28/17 12:00 Temperature 99.1 F Pulse Rate 67 67 Respiratory Rate 28 H 18 17 Blood Pressure 136/64 125/60 Pulse Oximetry 100 100 08/28/17 12:20 08/28/17 12:36 08/28/17 12:40 Temperature Pulse Rate 67 67 66 Respiratory Rate 19 18 Blood Pressure 127/62 127/63 Pulse Oximetry 99 99 08/28/17 13:00 08/28/17 13:20 08/28/17 14:00 Temperature Pulse Rate 67 67 69 Respiratory Rate 18 20 Blood Pressure 128/63 129/61 161/73 H Pulse Oximetry 99 99 99 Intake & Output 07/19/18 07/20/18 07/20/18 18:59 06:59 18:59 Intake Total 647 / 647 673 / 673 258 / 258 Output Total 700 / 700 200 / 200 899 / 899 Balance -53 / -53 473 / 473 -641 / -641 Weight 77.5 kg Intake: IV 311 / 311 258 / 258 258 / 258 Cerebyx Inj 150 MGPE In NS Inj 106 / 106 53 / 53 53 / 53 50 ML @ 208 mls/hr IV.SIG Q8H [facility] Rx#:[id number] Keppra Inj 500 MG In NS Inj 100 105 / 105 105 / 105 105 / 105 ML @ 420 mls/hr IV.SIG Q12H [facility] Rx#:[id number] Flagyl 500 MG Inj 100 ML @ 100 100 / 100 100 / 100 100 / 100 mls/hr IV.SIG Q8H [facility] Rx#: [id number] Tube Feeding 336 / 336 355 / 355 Water Bolus Amount 60 / 60 Output: Urine 0 / 0 Stool 700 / 700 200 / 200 Peritoneal Amount 899 / 899 Other: # Voids 1 Date of Last Bowel Movement 08/27/17 08/28/17 08/28/17 - Constitutional chronically ill appearing, obtunded Comments: intubated and unresponsive - Routine HEENT Exam Head: Present: normocephalic - Routine Neck Exam Present: supple, full ROM. Absent: JVD - Routine Respiratory Exam Present: patient mechanically ventilated, CTA bilaterally. Absent: accessory muscle use - Routine Cardiovascular Exam Present: irregular rhythm Comments: junctional rhythm today, accelerated - Routine Abdominal Exam Present: soft, normoactive bowel sounds - Routine Extremities Exam Present: edema, extremity cold to touch. Absent: full ROM - Routine Skin Exam Present: intact - Routine Neurological Exam unresponsive off sedation - Detailed Neurological Exam: Coma Scale Eye Opening: None Verbal Response: None Motor Response: None [place] Coma Scale Total: 3 - Routine Psychiatric Exam Present: unable to assess Assessment and Plan - Assessment (1) ESRD (end stage renal disease) on dialysis Code(s): N18.6 - End stage renal disease; Z99.2 - Dependence on renal dialysis Status: Acute Plan: His prescription is 5 cycles, 2500 ml, 11 hrs. No last fill. Use 2.5% solution tonight. He has increased edema, on lasix daily. Avoid IVF administration Monitor UF, overnight was acceptable. (2) Anemia associated with chronic renal failure Code(s): D63.1 - Anemia in chronic kidney disease Status: Acute Plan: No evidence of iron deficiency. Given 20K Epogen 08/25. Transfuse as needed. (3) Seizure Code(s): R56.9 - Unspecified convulsions Status: Acute Plan: s/p multiple EEGs. Recent witnessed seizure activity, neurology following. On Keppra. (4) Paroxysmal atrial fibrillation Code(s): I48.0 - Paroxysmal atrial fibrillation Status: Acute Plan: Seen by cardiology. His rhythm today is reported as junctional, was A fib with SVR with ectopic beath. s/p AICD placement 08/19. Off Amiodarone and lidocaine. - Plan His overall prognosis is poor. He has been hospitalized most of the past year. Functional decline as well. At risk for morbidity and mortality. declined palliative services.
--- NOTE | 2017-08-28 15:20 | P.PNCC ---
Subjective Subjective Remarks/Hospital Course: Patient is an 82-year-old male with a past medical history of hypertension, obstructive sleep apnea, COPD, history of CVA, end-stage renal disease on peritoneal dialysis who was recently admitted to [place] from 05/21/17 to for respiratory failure. He was brought into the emergency department today for multiple episodes of syncope. EMS strips showed several episodes of nonsustained V. tach. In the emergency department patient had a single episode of sustained V. tach, up to 54 seconds, with loss of consciousness. Pads were placed for emergency defibrillation however prior to defibrillation patient regained sinus rhythm and consciousness. Patient was given 150 mg amiodarone bolus IV, followed by amiodarone infusion. Dr. Leong from cardiology was consulted. I evaluated the patient in the emergency department. Patient is lying in bed denies chest pain. He has sinus bradycardia. I reviewed the EMS EKG strips, and the EKG done in the ED. He has sinus bradycardia, and prolonged QT interval. I discussed with Dr. Leong, we will continue amiodarone as this time as the patient responded to amiodarone. Patient will need serial cardiac enzymes, 2D echo, evaluate for AICD placement. Home medications of Midrin and propantheline will be held due to arrhythmias. Dr. Leong will evaluate for AICD placement 08/20: Overnight, 3 minute long episodes of V. tach with intermittent loss of conscious. CPR initiated with chest compressions 3 minutes. Defibrillator with 200 J. Rebolus with amiodarone 150 mg at 1040. Patient still intermittently in V. tach/bradycardic rhythm. Rebolus with 150 mg of amiodarone and currently on amiodarone drip at 1 mg/min. Lidocaine will be the next choice. Currently resting in bed and appears comfortable despite the ongoing unstable rhythm 08/21 Patient went into Vtach/vfib overnight AICD fired x 4 started now on Amio and Lidocaine drips. Afebrile. Awake and alert. 08/22: Afebrile. Last seen normal state of health at 0600. At 606 40, already noticed patient gurgling. A phasic. Both hands were at throat. Able to squeeze bilateral hands/reflexes. Moving left upper extremity spontaneously. No response bilateral lower extremities. Patient emergently intubated and sent for CT brain. Stroke alert was called and Dr. Marin notified. Attempting to notify Dr. Leong. Subjective 08/23: On route to CT brain status post 24 hours alteplase patient went to an unstable rhythm likely V. fib after which she received a shock back into normal sinus rhythm. Currently awake and alert and following commands. Lidocaine drip restarted. Cardiology to be notified. 08/24 Patient remain intubated, off sedation. Afebrile. 08/25: new altered mental status. ?seizure like activity. no VT/VF. 08/26: encephalopathy persists. dilantin level persistently subtherapeutic. re- bolused 50mg phosphenytoin. repeat EEG today. LP with lymphocytic predominance and slightly elevated protein: could be consistent with viral encephalitis. still unable to obtain MRI. remainder of studies pending. 08/27: still very encephalopathic. not following commands. off sedation for many days. now C. Diff positive. no more ictal activity on EEG. Dr. Oconnor does not think [employer] studies c/w infectious etiology. 08/28: no improvement in mental status at all. not following commands. psuedomonas VAP superimposed on C. Diff colitis. Objective Vital Signs / I&O: Vital Signs 08/27/17 15:21 08/27/17 15:40 08/27/17 16:00 Temperature 39.0 C H Pulse Rate 62 59 L 59 L Respiratory Rate 19 18 Blood Pressure 100/55 L 131/63 130/60 Pulse Oximetry 100 98 99 08/27/17 16:20 08/27/17 16:40 08/27/17 17:00 Temperature Pulse Rate 60 59 L 61 Respiratory Rate 14 14 16 Blood Pressure 132/63 126/61 121/60 Pulse Oximetry 99 98 99 08/27/17 17:20 08/27/17 17:29 08/27/17 17:40 Temperature Pulse Rate 61 61 Respiratory Rate 19 18 15 Blood Pressure 106/52 L 111/53 L Pulse Oximetry 99 99 98 08/27/17 18:00 08/27/17 18:20 08/27/17 18:40 Temperature Pulse Rate 62 62 64 Respiratory Rate 17 16 18 Blood Pressure 102/54 L 113/59 L 114/55 L Pulse Oximetry 99 90 L 98 08/27/17 19:00 08/27/17 20:00 08/27/17 21:00 Temperature 38.1 C H Pulse Rate 66 68 71 Respiratory Rate 23 16 25 H Blood Pressure 103/62 124/60 157/72 H Pulse Oximetry 100 99 97 08/27/17 21:21 08/27/17 22:00 08/27/17 23:00 Temperature Pulse Rate 77 78 Respiratory Rate 26 H 25 H 21 Blood Pressure 145/69 H 131/75 Pulse Oximetry 100 99 08/28/17 00:00 08/28/17 00:30 08/28/17 01:00 Temperature 39.0 C H Pulse Rate 78 78 76 Respiratory Rate 16 24 17 Blood Pressure 104/58 L 113/56 L Pulse Oximetry 100 98 08/28/17 02:00 08/28/17 03:00 08/28/17 03:56 Temperature Pulse Rate 78 76 Respiratory Rate 24 17 24 Blood Pressure 102/63 91/57 L Pulse Oximetry 100 100 08/28/17 04:00 08/28/17 05:00 08/28/17 06:00 Temperature 39.0 C H Pulse Rate 74 74 71 Respiratory Rate 23 19 27 H Blood Pressure 114/55 L 99/64 L 102/62 Pulse Oximetry 98 08/28/17 07:00 08/28/17 07:20 08/28/17 07:40 Temperature Pulse Rate 75 72 70 Respiratory Rate 24 Blood Pressure 125/68 115/63 114/63 Pulse Oximetry 95 98 99 08/28/17 08:00 08/28/17 08:20 08/28/17 08:40 Temperature 37.3 C Pulse Rate 69 69 66 Respiratory Rate 24 26 H 25 H Blood Pressure 112/59 L 112/58 L 122/60 Pulse Oximetry 98 98 99 08/28/17 09:00 08/28/17 09:10 08/28/17 09:20 Temperature Pulse Rate 68 68 Respiratory Rate 22 25 H Blood Pressure 113/80 157/68 H Pulse Oximetry 98 08/28/17 10:00 08/28/17 10:20 08/28/17 10:36 Temperature Pulse Rate 67 67 67 Respiratory Rate 18 Blood Pressure 118/61 110/61 Pulse Oximetry 99 99 08/28/17 10:40 08/28/17 11:00 08/28/17 11:20 Temperature Pulse Rate 67 67 66 Respiratory Rate 23 26 H 20 Blood Pressure 116/61 116/57 L 110/57 L Pulse Oximetry 99 99 99 08/28/17 11:40 08/28/17 11:47 08/28/17 12:00 Temperature 37.3 C Pulse Rate 67 67 Respiratory Rate 28 H 18 17 Blood Pressure 136/64 125/60 Pulse Oximetry 100 100 08/28/17 12:20 08/28/17 12:36 08/28/17 12:40 Temperature Pulse Rate 67 67 66 Respiratory Rate 19 18 Blood Pressure 127/62 127/63 Pulse Oximetry 99 99 08/28/17 13:00 08/28/17 13:20 08/28/17 14:00 Temperature Pulse Rate 67 67 69 Respiratory Rate 18 20 Blood Pressure 128/63 129/61 161/73 H Pulse Oximetry 99 99 99 Intake & Output 08/27/17 08/28/17 08/28/17 18:59 06:59 18:59 Intake Total 647 / 647 673 / 673 258 / 258 Output Total 700 / 700 200 / 200 899 / 899 Balance -53 / -53 473 / 473 -641 / -641 Weight 77.5 kg Intake: IV 311 / 311 258 / 258 258 / 258 Cerebyx Inj 150 MGPE In NS Inj 106 / 106 53 / 53 53 / 53 50 ML @ 208 mls/hr IV.SIG Q8H [facility] Rx#:[id number] Keppra Inj 500 MG In NS Inj 100 105 / 105 105 / 105 105 / 105 ML @ 420 mls/hr IV.SIG Q12H [facility] Rx#:[id number] Flagyl 500 MG Inj 100 ML @ 100 100 / 100 100 / 100 100 / 100 mls/hr IV.SIG Q8H [facility] Rx#: [id number] Tube Feeding 336 / 336 355 / 355 Water Bolus Amount 60 / 60 Output: Urine 0 / 0 Stool 700 / 700 200 / 200 Peritoneal Amount 899 / 899 Other: # Voids 1 Date of Last Bowel Movement 08/27/17 08/28/17 08/28/17 Result Diagrams: 08/28/17 06:26 08/28/17 06:26 Objective Remarks: GENERAL: 82-year-old male currently resting in bed orotracheally intubated SKIN: Warm and dry. stage III developing on the sacrum. HEAD: Atraumatic. Normocephalic. EYES: Pupils equal and round. No scleral icterus. No injection or drainage. ENT: No nasal bleeding or discharge. Mucous membranes pink and moist. NECK: Trachea midline. No JVD. CARDIOVASCULAR: paced rhythm in the 60s. Currently without murmur. RESPIRATORY: No accessory muscle use. Clear to auscultation. Breath sounds equal bilaterally. GASTROINTESTINAL: Abdomen soft, non-tender, nondistended. Peritoneal catheters placed and clean dry and intact MUSCULOSKELETAL: Extremities with trace upper and lower extremity. Chronic venous stasis bilateral lower extremities with multiple dried scabs. NEUROLOGICAL: RASS -4. off sedation. not following commands. now withdrawing to pain. pupils equal, round, reactive, conjugate and midline today. Assessment and Plan - Assessment and Plan Plan: Assessment: 82yM with recurrent VT s/p AICD, course complicated by new acute CVA , acute hypoxic respiratory failure, and acute encephalopathy. further complicated by recurrent C. Difficile colitis and now Pseudomonas VAP. very critically ill. will continue to monitor neuro status closely. persistent neuro deficits and acute encephalopathy compounding his ongoing acute medical issues. NEURO/PSYCH: Acute encephalopathy- persistent New-onset seizures Acute CVA s/p systemic TPA 08/22 History of bilateral occipital/left cerebellar CVA Major depressive disorder NOS Glaucoma Seizure disorder NOS Monitor neuro status. off sedation Stroke alert called. Dr. Marin consultation appreciated. Received alteplase Stat CT brain 08/22 revealed old left parietal CVA. No acute findings CTA head and neck - negative. Repeat CT brain 08/23: No acute findings Acetaminophen 650 mg a mouth every 6 hours as needed pain 1 through 10/fever Continue travoprost 0.004% 1 drop each eye at night Holding mirtazapine 15 mg at night/home medication for depression. Resume when/ if clinically indicated cerebyx 150mg iv q8h keppra 500mg iv q12h Dr. Marin involved LP 08/25: protein 48.4, glucose 72, lymphocyte predominance (88%). gram stain negative. studies pending. repeat EEG still unable to get MRI due to new AICD implantation RESP: Acute hypoxic and hypercarbic respiratory failure secondary to AMS [facility] /02/14/39 Ventilator bundle -Albuterol/ipratropium aerosols every 4 hours with albuterol aerosols every 2 hours as needed for dyspnea daily SBTs. no extubation until mental status improves CV: Sustained ventricular tachycardia Sinus bradycardia History of atrial fibrillation Elevated troponin Possible acute myocarditis Cardiology is following Dr. Leong, s/p AICD placement 08/20 -Continue Amiodarone 400mg po BID lidocaine stopped after new-onset seizures. -Carvedilol 6.25mg BID, Plavix 75mg daily- Dr. Leong Continue aspirin 81 mg daily Echo 08/20 showed EF 35-40% 2D echocardiogram 02/26 revealed mild concentric left ventricular hypertrophy. The left ventricular systolic function is normal with an estimated ejection fraction in the range of 55-60%. Mild TR. The estimated pulmonary arterial pressure is 40 mmHg. Continue atorvastatin 80 mg at night. Holding Midodrine 10 mg twice daily Troponin is currently downward trending. Dr. 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 difficile -Monitor closely for signs of infection(Fever, WBC) HEME: Normocytic anemia -Monitor CBC, CMP, coags ENDO: Sliding scale insulin with Accu-Cheks to maintain euglycemia/aspart every 6 hours low regimen. TSH 1.85 MSK: PT evaluate and treat PROPH: -Bilateral lower extremity SCDs. Heparin subcu, lansoprazole LINES: -Utilize peripheral IVs, OVERALL IMPRESSION: no clinical improvements. encephalopathy. persistent hypoxemia, respiratory failure, cardiac electrical dysrhythmias- all life- threatening. critically ill.
[2017-08-28 16:20] LABS: Folate 7.1 ng/mL (3.1-17.5)
[2017-08-28] MEDS: Latanoprost 0.005% Opth Drops 2.5 ML Bottle EACH EYE SCH (20:10)
[2017-08-29] MEDS: Fosphenytoin Inj 150 MGPE in Sodium Chlor 0.9% Inj 50 ML IV.SIG SCH ×3 (00:03→16:01)
[2017-08-29] MEDS: Insulin NovoLOG Aspart Correctional Sugar Inj SQ SCH ×3 (00:04→12:54)
[2017-08-29 05:18] LABS: Hematocrit 24.8 % (39.0-51.0); Hemoglobin 8.1 gm/dL (13.0-17.0); Mean Corpuscular HGB Conc 32.5 % (32.0-36.0); Mean Corpuscular Hemoglobin 32.7 pg (27.0-34.0); Mean Corpuscular Volume 100.5 fL (80.0-100.0); Mean Platelet Volume 7.9 fL (7.0-11.0); Platelet Count 205 th/mm3 (150-450); Red Blood Count 2.47 mil/mm3 (4.50-5.90); Red Cell Distribution Width 15.8 % (11.6-17.2); White Blood Count 15.8 th/mm3 (4.0-11.0)
[2017-08-29 05:28] LABS: Calcium 8.9 mg/dL (8.5-10.1); Carbon Dioxide 15.9 meq/L (21.0-32.0); Potassium 3.1 meq/L (3.5-5.1)
[2017-08-29] MEDS: Oral Hygiene Kit OROPHARYNG SCH ×3 (06:28→16:01)
--- NOTE | 2017-08-29 08:03 | P.PNCC ---
Subjective Subjective Remarks/Hospital Course: Patient is an 82-year-old male with a past medical history of hypertension, obstructive sleep apnea, COPD, history of CVA, end-stage renal disease on peritoneal dialysis who was recently admitted to [place] from 05/21/17 to for respiratory failure. He was brought into the emergency department today for multiple episodes of syncope. EMS strips showed several episodes of nonsustained V. tach. In the emergency department patient had a single episode of sustained V. tach, up to 54 seconds, with loss of consciousness. Pads were placed for emergency defibrillation however prior to defibrillation patient regained sinus rhythm and consciousness. Patient was given 150 mg amiodarone bolus IV, followed by amiodarone infusion. Dr. Leong from cardiology was consulted. I evaluated the patient in the emergency department. Patient is lying in bed denies chest pain. He has sinus bradycardia. I reviewed the EMS EKG strips, and the EKG done in the ED. He has sinus bradycardia, and prolonged QT interval. I discussed with Dr. Leong, we will continue amiodarone as this time as the patient responded to amiodarone. Patient will need serial cardiac enzymes, 2D echo, evaluate for AICD placement. Home medications of Midrin and propantheline will be held due to arrhythmias. Dr. Leong will evaluate for AICD placement 08/20: Overnight, 3 minute long episodes of V. tach with intermittent loss of conscious. CPR initiated with chest compressions 3 minutes. Defibrillator with 200 J. Rebolus with amiodarone 150 mg at 1040. Patient still intermittently in V. tach/bradycardic rhythm. Rebolus with 150 mg of amiodarone and currently on amiodarone drip at 1 mg/min. Lidocaine will be the next choice. Currently resting in bed and appears comfortable despite the ongoing unstable rhythm 08/21 Patient went into Vtach/vfib overnight AICD fired x 4 started now on Amio and Lidocaine drips. Afebrile. Awake and alert. 08/22: Afebrile. Last seen normal state of health at 0600. At 606 40, already noticed patient gurgling. A phasic. Both hands were at throat. Able to squeeze bilateral hands/reflexes. Moving left upper extremity spontaneously. No response bilateral lower extremities. Patient emergently intubated and sent for CT brain. Stroke alert was called and Dr. Marin notified. Attempting to notify Dr. Leong. 08/23: On route to CT brain status post 24 hours alteplase patient went to an unstable rhythm likely V. fib after which she received a shock back into normal sinus rhythm. Currently awake and alert and following commands. Lidocaine drip restarted. Cardiology to be notified. 08/24 Patient remain intubated, off sedation. Afebrile. 08/25: new altered mental status. ?seizure like activity. no VT/VF. 08/26: encephalopathy persists. dilantin level persistently subtherapeutic. re- bolused 50mg phosphenytoin. repeat EEG today. LP with lymphocytic predominance and slightly elevated protein: could be consistent with viral encephalitis. still unable to obtain MRI. remainder of studies pending. 08/27: still very encephalopathic. not following commands. off sedation for many days. now C. Diff positive. no more ictal activity on EEG. Dr. Oconnor does not think [employer] studies c/w infectious etiology. 08/28: no improvement in mental status at all. not following commands. psuedomonas VAP superimposed on C. Diff colitis. Subjective 08/29: no changes or improvements. more acidotic today. Objective Vital Signs / I&O: Vital Signs 08/28/17 08:00 08/28/17 08:20 08/28/17 08:40 Temperature 37.3 C Pulse Rate 69 69 66 Respiratory Rate 24 26 H 25 H Blood Pressure 112/59 L 112/58 L 122/60 Pulse Oximetry 98 98 99 08/28/17 09:00 08/28/17 09:10 08/28/17 09:20 Temperature Pulse Rate 68 68 Respiratory Rate 22 25 H Blood Pressure 113/80 157/68 H Pulse Oximetry 98 08/28/17 10:00 08/28/17 10:20 08/28/17 10:36 Temperature Pulse Rate 67 67 67 Respiratory Rate 18 Blood Pressure 118/61 110/61 Pulse Oximetry 99 99 08/28/17 10:40 08/28/17 11:00 08/28/17 11:20 Temperature Pulse Rate 67 67 66 Respiratory Rate 23 26 H 20 Blood Pressure 116/61 116/57 L 110/57 L Pulse Oximetry 99 99 99 08/28/17 11:40 08/28/17 11:47 08/28/17 12:00 Temperature 37.3 C Pulse Rate 67 67 Respiratory Rate 28 H 18 17 Blood Pressure 136/64 125/60 Pulse Oximetry 100 100 08/28/17 12:20 08/28/17 12:36 08/28/17 12:40 Temperature Pulse Rate 67 67 66 Respiratory Rate 19 18 Blood Pressure 127/62 127/63 Pulse Oximetry 99 99 08/28/17 13:00 08/28/17 13:20 08/28/17 14:00 Temperature Pulse Rate 67 67 69 Respiratory Rate 18 20 Blood Pressure 128/63 129/61 161/73 H Pulse Oximetry 99 99 99 08/28/17 15:00 08/28/17 15:20 08/28/17 15:40 Temperature Pulse Rate 67 68 68 Respiratory Rate 17 19 18 Blood Pressure 117/58 L 129/65 125/62 Pulse Oximetry 99 99 99 08/28/17 16:00 08/28/17 16:20 08/28/17 16:40 Temperature 37.3 C Pulse Rate 68 69 67 Respiratory Rate 14 16 15 Blood Pressure 126/61 128/64 138/67 Pulse Oximetry 99 98 99 08/28/17 17:00 08/28/17 17:05 08/28/17 17:20 Temperature Pulse Rate 71 68 Respiratory Rate 19 19 15 Blood Pressure 132/63 122/62 Pulse Oximetry 100 99 08/28/17 17:40 08/28/17 18:00 08/28/17 18:20 Temperature Pulse Rate 67 69 67 Respiratory Rate 17 14 15 Blood Pressure 126/64 126/64 128/64 Pulse Oximetry 99 99 100 08/28/17 18:40 08/28/17 19:00 08/28/17 19:20 Temperature 36.1 C L Pulse Rate 67 69 68 Respiratory Rate 17 16 15 Blood Pressure 130/65 130/68 118/66 Pulse Oximetry 100 100 100 08/28/17 19:40 08/28/17 20:00 08/28/17 20:20 Temperature Pulse Rate 68 70 68 Respiratory Rate 15 21 16 Blood Pressure 123/65 122/60 111/58 L Pulse Oximetry 98 100 100 08/28/17 20:40 08/28/17 21:00 08/28/17 21:03 Temperature Pulse Rate 67 69 68 Respiratory Rate 15 16 16 Blood Pressure 103/55 L 98/53 L Pulse Oximetry 100 100 08/28/17 21:20 08/28/17 21:40 08/28/17 22:00 Temperature Pulse Rate 72 74 73 Respiratory Rate 15 16 15 Blood Pressure 87/51 L 82/58 L 102/57 L Pulse Oximetry 100 99 99 08/28/17 22:20 08/28/17 22:40 08/28/17 23:00 Temperature Pulse Rate 75 74 75 Respiratory Rate 16 14 20 Blood Pressure 104/59 L 104/64 91/58 L Pulse Oximetry 100 99 98 08/28/17 23:20 08/28/17 23:30 08/28/17 23:40 Temperature Pulse Rate 78 77 74 Respiratory Rate 22 21 21 Blood Pressure 96/61 L 102/70 Pulse Oximetry 99 100 100 08/29/17 00:00 08/29/17 00:20 08/29/17 00:40 Temperature 36.2 C L Pulse Rate 74 72 73 Respiratory Rate 21 21 21 Blood Pressure 113/62 115/61 106/55 L Pulse Oximetry 100 100 100 08/29/17 01:00 08/29/17 01:20 08/29/17 01:40 Temperature Pulse Rate 79 76 78 Respiratory Rate 22 22 22 Blood Pressure 98/60 L 96/61 L 99/55 L Pulse Oximetry 100 100 100 08/29/17 02:00 08/29/17 02:20 08/29/17 02:40 Temperature Pulse Rate 73 75 78 Respiratory Rate 26 H 22 20 Blood Pressure 100/63 102/55 L 87/58 L Pulse Oximetry 100 99 99 08/29/17 03:00 08/29/17 03:30 08/29/17 03:35 Temperature Pulse Rate 76 77 77 Respiratory Rate 20 19 19 Blood Pressure 96/53 L 92/54 L Pulse Oximetry 99 98 08/29/17 04:00 08/29/17 04:18 08/29/17 04:30 Temperature 36.4 C Pulse Rate 76 74 Respiratory Rate 24 23 17 Blood Pressure 93/58 L 92/59 L Pulse Oximetry 99 98 99 08/29/17 05:00 08/29/17 05:30 08/29/17 06:00 Temperature Pulse Rate 76 80 78 Respiratory Rate 21 20 17 Blood Pressure 89/54 L 90/53 L Pulse Oximetry 99 98 99 08/29/17 06:05 Temperature Pulse Rate 77 Respiratory Rate 18 Blood Pressure 87/57 L Pulse Oximetry 100 Intake & Output 08/28/17 08/29/17 08/29/17 18:59 06:59 18:59 Intake Total 608 / 608 445 / 445 Output Total 1799 / 1799 1499 / 1499 Balance -1191 / -1191 -1054 / -1054 Weight 78 kg Intake: IV 311 / 311 53 / 53 Cerebyx Inj 150 MGPE In NS Inj 106 / 106 53 / 53 50 ML @ 208 mls/hr IV.SIG Q8H [facility]ARC Rx#:[id number] Keppra Inj 500 MG In NS Inj 100 105 / 105 ML @ 420 mls/hr IV.SIG Q12H MARC Rx#:[id number] Flagyl 500 MG Inj 100 ML @ 100 100 / 100 mls/hr IV.SIG Q8H MARC Rx#: [id number] Oral 0 / 0 Tube Feeding 297 / 297 302 / 302 Water Bolus Amount 90 / 90 Output: Urine 0 / 0 Stool 900 / 900 600 / 600 Peritoneal Amount 899 / 899 899 / 899 Gastric Drainage 0 / 0 Orogastric Tube 0 / 0 Other: # Voids 2 1 Date of Last Bowel Movement 08/28/17 08/28/17 Result Diagrams: 08/29/17 04:56 08/29/17 04:56 Objective Remarks: GENERAL: 82-year-old male currently resting in bed orotracheally intubated SKIN: Warm and dry. stage III developing on the sacrum. HEAD: Atraumatic. Normocephalic. EYES: Pupils equal and round. No scleral icterus. No injection or drainage. ENT: No nasal bleeding or discharge. Mucous membranes pink and moist. NECK: Trachea midline. No JVD. CARDIOVASCULAR: paced rhythm in the 60s. Currently without murmur. RESPIRATORY: No accessory muscle use. Clear to auscultation. Breath sounds equal bilaterally. GASTROINTESTINAL: Abdomen soft, non-tender, nondistended. Peritoneal catheters placed and clean dry and intact MUSCULOSKELETAL: Extremities with trace upper and lower extremity. Chronic venous stasis bilateral lower extremities with multiple dried scabs. NEUROLOGICAL: RASS -4. off sedation. not following commands. now withdrawing to pain. pupils equal, round, reactive, conjugate and midline today. Assessment and Plan - Assessment and Plan Plan: Assessment: 82yM with recurrent VT s/p AICD, course complicated by new acute CVA , acute hypoxic respiratory failure, and acute encephalopathy. further complicated by recurrent C. Difficile colitis and now Pseudomonas VAP. very critically ill. more ill today than yesterday. will continue to monitor neuro status closely. persistent neuro deficits and acute encephalopathy compounding his ongoing acute medical issues. NEURO/PSYCH: Acute encephalopathy- persistent New-onset seizures Acute CVA s/p systemic TPA 08/22 History of bilateral occipital/left cerebellar CVA Major depressive disorder NOS Glaucoma Seizure disorder NOS Monitor neuro status. off sedation Stroke alert called. Dr. Marin consultation appreciated. Received alteplase Stat CT brain 08/22 revealed old left parietal CVA. No acute findings CTA head and neck - negative. Repeat CT brain 08/23: No acute findings Acetaminophen 650 mg a mouth every 6 hours as needed pain 1 through 10/fever Continue travoprost 0.004% 1 drop each eye at night Holding mirtazapine 15 mg at night/home medication for depression. Resume when/ if clinically indicated cerebyx 150mg iv q8h keppra 500mg iv q12h Dr. Marin involved LP 08/25: protein 48.4, glucose 72, lymphocyte predominance (88%). gram stain negative. studies all negative West Nile virus and Coxsackie still pending. repeat EEG still unable to get MRI due to new AICD implantation RESP: Acute hypoxic and hypercarbic respiratory failure secondary to AMS Ventilator bundle -Albuterol/ipratropium aerosols every 4 hours with albuterol aerosols every 2 hours as needed for dyspnea daily SBTs. no extubation until mental status improves CV: Sustained ventricular tachycardia Sinus bradycardia History of atrial fibrillation Elevated troponin Possible acute myocarditis Cardiology is following Dr. Leong, s/p AICD placement 08/20 -Continue Amiodarone 400mg po BID lidocaine stopped after new-onset seizures. -Carvedilol 6.25mg BID, Plavix 75mg daily- Dr. Leong Continue aspirin 81 mg daily Echo 08/20 showed EF 35-40% 2D echocardiogram 02/26 revealed mild concentric left ventricular hypertrophy. The left ventricular systolic function is normal with an estimated ejection fraction in the range of 55-60%. Mild TR. The estimated pulmonary arterial pressure is 40 mmHg. Continue atorvastatin 80 mg at night. Holding Midodrine 10 mg twice daily Troponin is currently downward trending. Dr. 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 Osman Long Renal is following Continue calcitriol 0.25 mcg daily ID: History of C. difficile -Monitor closely for signs of infection(Fever, WBC) HEME: Normocytic anemia -Monitor CBC, CMP, coags ENDO: Sliding scale insulin with Accu-Cheks to maintain euglycemia/aspart every 6 hours low regimen. TSH 1.85 MSK: PT evaluate and treat PROPH: -Bilateral lower extremity SCDs. Heparin subcu, lansoprazole LINES: -Utilize peripheral IVs, OVERALL IMPRESSION: no clinical improvements. encephalopathy. persistent hypoxemia, respiratory failure, cardiac electrical dysrhythmias- all life- threatening. critically ill.
[2017-08-29] MEDS: Chlorhexidine 0.12% Oral Kit 15 ML UDC OROPHARYNG SCH ×2 (09:54→21:30)
[2017-08-29] MEDS: Polyethylene Glycol 3350 17 GM Packet PO SCH ×2 (09:54→21:31)
[2017-08-29] MEDS: Hypromellose 0.3% Opth Gel 10 GM Bottle EACH EYE SCH ×2 (09:54→12:53)
[2017-08-29] MEDS: Senna/Docusate Sodium 8.6/50 MG Tablet PO SCH ×2 (09:55→21:29)
[2017-08-29] MEDS: CALCITRIOL PO SCH ×2 (09:55→09:56)
[2017-08-29] MEDS: Amiodarone 200 MG Tablet PO SCH ×2 (09:57→21:30)
[2017-08-29] MEDS: Carvedilol 6.25 MG Tablet PO SCH ×2 (09:57→21:31)
[2017-08-29] MEDS: Heparin - SQ 10,000 UNITS/ML Vial SQ SCH ×2 (10:33→21:29)
--- NOTE | 2017-08-29 10:57 | P.PN ---
Subjective Interval history: Pt remains intubated, no further VT Physical Exam Vital signs: Vital Signs 08/28/17 11:00 08/28/17 11:20 08/28/17 11:40 Temperature Pulse Rate 67 66 67 Respiratory Rate 26 H 20 28 H Blood Pressure 116/57 L 110/57 L 136/64 Pulse Oximetry 99 99 100 08/28/17 11:47 08/28/17 12:00 08/28/17 12:20 Temperature 99.1 F Pulse Rate 67 67 Respiratory Rate 18 17 19 Blood Pressure 125/60 127/62 Pulse Oximetry 100 99 08/28/17 12:36 08/28/17 12:40 08/28/17 13:00 Temperature Pulse Rate 67 66 67 Respiratory Rate 18 18 Blood Pressure 127/63 128/63 Pulse Oximetry 99 99 08/28/17 13:20 08/28/17 14:00 08/28/17 15:00 Temperature Pulse Rate 67 69 67 Respiratory Rate 20 17 Blood Pressure 129/61 161/73 H 117/58 L Pulse Oximetry 99 99 99 08/28/17 15:20 08/28/17 15:40 08/28/17 16:00 Temperature 99.2 F Pulse Rate 68 68 68 Respiratory Rate 19 18 14 Blood Pressure 129/65 125/62 126/61 Pulse Oximetry 99 99 99 08/28/17 16:20 08/28/17 16:40 08/28/17 17:00 Temperature Pulse Rate 69 67 71 Respiratory Rate 16 15 19 Blood Pressure 128/64 138/67 132/63 Pulse Oximetry 98 99 100 08/28/17 17:05 08/28/17 17:20 08/28/17 17:40 Temperature Pulse Rate 68 67 Respiratory Rate 19 15 17 Blood Pressure 122/62 126/64 Pulse Oximetry 99 99 08/28/17 18:00 08/28/17 18:20 08/28/17 18:40 Temperature Pulse Rate 69 67 67 Respiratory Rate 14 15 17 Blood Pressure 126/64 128/64 130/65 Pulse Oximetry 99 100 100 08/28/17 19:00 08/28/17 19:20 08/28/17 19:40 Temperature 97 F L Pulse Rate 69 68 68 Respiratory Rate 16 15 15 Blood Pressure 130/68 118/66 123/65 Pulse Oximetry 100 100 98 08/28/17 20:00 08/28/17 20:20 08/28/17 20:40 Temperature Pulse Rate 70 68 67 Respiratory Rate 21 16 15 Blood Pressure 122/60 111/58 L 103/55 L Pulse Oximetry 100 100 100 08/28/17 21:00 08/28/17 21:03 08/28/17 21:20 Temperature Pulse Rate 69 68 72 Respiratory Rate 16 16 15 Blood Pressure 98/53 L 87/51 L Pulse Oximetry 100 100 08/28/17 21:40 08/28/17 22:00 08/28/17 22:20 Temperature Pulse Rate 74 73 75 Respiratory Rate 16 15 16 Blood Pressure 82/58 L 102/57 L 104/59 L Pulse Oximetry 99 99 100 08/28/17 22:40 08/28/17 23:00 08/28/17 23:20 Temperature Pulse Rate 74 75 78 Respiratory Rate 14 20 22 Blood Pressure 104/64 91/58 L 96/61 L Pulse Oximetry 99 98 99 08/28/17 23:30 08/28/17 23:40 08/29/17 00:00 Temperature 97.2 F L Pulse Rate 77 74 74 Respiratory Rate 21 21 21 Blood Pressure 102/70 113/62 Pulse Oximetry 100 100 100 08/29/17 00:20 08/29/17 00:40 08/29/17 01:00 Temperature Pulse Rate 72 73 79 Respiratory Rate 21 21 22 Blood Pressure 115/61 106/55 L 98/60 L Pulse Oximetry 100 100 100 08/29/17 01:20 08/29/17 01:40 08/29/17 02:00 Temperature Pulse Rate 76 78 73 Respiratory Rate 22 22 26 H Blood Pressure 96/61 L 99/55 L 100/63 Pulse Oximetry 100 100 100 08/29/17 02:20 08/29/17 02:40 08/29/17 03:00 Temperature Pulse Rate 75 78 76 Respiratory Rate 22 20 20 Blood Pressure 102/55 L 87/58 L 96/53 L Pulse Oximetry 99 99 99 08/29/17 03:30 08/29/17 03:35 08/29/17 04:00 Temperature 97.6 F Pulse Rate 77 77 76 Respiratory Rate 19 19 24 Blood Pressure 92/54 L 93/58 L Pulse Oximetry 98 99 08/29/17 04:18 08/29/17 04:30 08/29/17 05:00 Temperature Pulse Rate 74 76 Respiratory Rate 23 17 21 Blood Pressure 92/59 L 89/54 L Pulse Oximetry 98 99 99 08/29/17 05:30 08/29/17 06:00 08/29/17 06:05 Temperature Pulse Rate 80 78 77 Respiratory Rate 20 17 18 Blood Pressure 90/53 L 87/57 L Pulse Oximetry 98 99 100 08/29/17 06:31 08/29/17 07:00 08/29/17 07:30 Temperature Pulse Rate 79 76 78 Respiratory Rate 20 18 18 Blood Pressure 89/54 L 94/55 L 95/54 L Pulse Oximetry 99 99 98 08/29/17 08:00 08/29/17 08:30 08/29/17 09:00 Temperature 101.2 F H Pulse Rate 78 81 81 Respiratory Rate 19 18 19 Blood Pressure 84/57 L 92/53 L 92/55 L Pulse Oximetry 98 99 97 08/29/17 09:31 Temperature Pulse Rate 82 Respiratory Rate 19 Blood Pressure 106/59 L Pulse Oximetry 98 Intake & Output 08/28/17 08/29/17 08/29/17 18:59 06:59 18:59 Intake Total 708 / 708 550 / 550 Output Total 1799 / 1799 1499 / 1499 500 / 500 Balance -1091 / -1091 -949 / -949 -500 / -500 Weight 78 kg Intake: IV 411 / 411 158 / 158 Cerebyx Inj 150 MGPE In NS Inj 106 / 106 53 / 53 50 ML @ 208 mls/hr IV.SIG Q8H [facility] Rx#:[id number] Merrem Inj 1,000 MG In NS Inj 100 / 100 100 ML @ 200 mls/hr IV.SIG Q24H [facility] Rx#:[id number] Keppra Inj 500 MG In NS Inj 100 105 / 105 105 / 105 ML @ 420 mls/hr IV.SIG Q12H [facility] Rx#:[id number] Flagyl 500 MG Inj 100 ML @ 100 100 / 100 mls/hr IV.SIG Q8H [facility] Rx#: [id number] Oral 0 / 0 Tube Feeding 297 / 297 302 / 302 Water Bolus Amount 90 / 90 Output: Urine 0 / 0 Stool 900 / 900 600 / 600 Peritoneal Amount 899 / 899 899 / 899 500 / 500 Gastric Drainage 0 / 0 Orogastric Tube 0 / 0 Other: # Voids 2 1 Date of Last Bowel Movement 07/20/18 07/20/18 - Constitutional Comments: Intubated - Routine HEENT Exam Head: Present: normocephalic ENT: Present: mucous membranes moist - Routine Neck Exam Present: supple, JVD - Routine Respiratory Exam Comments: vent. sounds appreciated - Routine Cardiovascular Exam Present: RRR. Absent: murmur - Routine Abdominal Exam Present: soft - Routine Extremities Exam Absent: edema - Routine Neurological Exam Absent: alert Results - Labs CBC & Chem 7: 08/29/17 04:56 08/29/17 04:56 Laboratory Results - last 24 hr 08/25/17 08/25/17 08/25/17 17:33 17:33 17:33 WBC RBC Hgb Hct MCV MCH MCHC RDW Plt Count MPV Sodium Potassium Chloride Carbon Dioxide Anion Gap BUN Creatinine Estimated GFR POC Glucose Random Glucose Calcium Ammonia Vitamin B12 Folate CSF VDRL Non-reactive CSF Cryptococcus Ag Not detected Adenovirus (PCR) Negative 08/28/17 08/28/17 08/28/17 06:26 12:31 16:19 WBC RBC Hgb Hct MCV MCH MCHC RDW Plt Count MPV Sodium Potassium Chloride Carbon Dioxide Anion Gap BUN Creatinine Estimated GFR POC Glucose 150 H Random Glucose Calcium Ammonia 22 Vitamin B12 660 Folate 7.1 CSF VDRL CSF Cryptococcus Ag Adenovirus (PCR) 08/28/17 08/28/17 08/29/17 17:54 23:44 04:56 WBC 15.8 H RBC 2.47 L Hgb 8.1 L Hct 24.8 L MCV 100.5 H MCH 32.7 MCHC 32.5 RDW 15.8 Plt Count 205 MPV 7.9 Sodium Potassium Chloride Carbon Dioxide Anion Gap BUN Creatinine Estimated GFR POC Glucose 197 H 287 H Random Glucose Calcium Ammonia Vitamin B12 Folate CSF VDRL CSF Cryptococcus Ag Adenovirus (PCR) 08/29/17 04:56 WBC RBC Hgb Hct MCV MCH MCHC RDW Plt Count MPV Sodium 140 Potassium 3.1 L Chloride 105 Carbon Dioxide 15.9 L Anion Gap 19 H BUN 35 H Creatinine 6.08 H Estimated GFR 9 L POC Glucose Random Glucose 190 H Calcium 8.9 Ammonia Vitamin B12 Folate CSF VDRL CSF Cryptococcus Ag Adenovirus (PCR) Microbiology 08/26/17 17:21 Sputum - Endotracheal Gram Stain - Final 08/26/17 17:21 Sputum - Endotracheal Sputum Culture - Preliminary Pseudomonas aeruginosa 08/27/17 04:40 Blood - Peripheral Aerobic Blood Culture - Preliminary No growth in 1 day 08/27/17 04:40 Blood - Peripheral Anaerobic Blood Culture - Preliminary No growth in 1 day 08/27/17 04:43 Blood - Peripheral Aerobic Blood Culture - Preliminary No growth in 1 day 08/27/17 04:43 Blood - Peripheral Anaerobic Blood Culture - Preliminary No growth in 1 day 08/25/17 17:33 Lumbar Puncture Gram Stain - Final 08/25/17 17:33 Lumbar Puncture CSF Culture - Final No growth in 72 hours Assessment and Plan - Assessment (1) Sustained ventricular tachycardia Code(s): I47.2 - Ventricular tachycardia Status: Deleted Plan: In sinus rhythm On mechanical ventilation Lidocaine DC There is some confusion this morning about ventricular fibrillation while moving the patient patient had a pulse. This is apparently noise No other episode during the day No need to interrogate the device yet. Case discussed with Dr Fatima Continue with current meds If there is a VT episode then mexiletine will be considered case also discussed with the nurse (2) Coronary artery disease Code(s): I25.10 - Atherosclerotic heart disease of [place] coronary artery without angina pectoris Status: Chronic Plan: No chest pain Ischemic work up may be necessary (3) Cardiomyopathy Code(s): I42.9 - Cardiomyopathy, unspecified Status: Acute (4) Paroxysmal atrial fibrillation Code(s): I48.0 - Paroxysmal atrial fibrillation Status: Acute Plan: A pacing V sensing - Plan Continue current medical mgt; no further VT, aicd in place. (2) Coronary artery disease Qualifiers: Coronary Disease-Associated Artery/Lesion type: [place] artery [place] vs. transplanted heart: [place] heart Associated angina: without angina Qualified Code(s): I25.10 - Atherosclerotic heart disease of [place] coronary artery without angina pectoris (3) Cardiomyopathy Qualifiers: Cardiomyopathy type: unspecified Qualified Code(s): I42.9 - Cardiomyopathy, unspecified
[2017-08-29 11:15] LABS: ABG Base Excess -5.6 mmol/L (-2-2); ABG PCO2 26 mmHg (38-42); ABG PO2 101 mmHG (61-120)
--- NOTE | 2017-08-29 14:09 | P.PNID ---
Subjective Remarks: small, thick secretions fever, low grade, 100s growing pseudomonas from sputum R imipenem tolerates CPAP not on pressors off sedation but remains profoudly encephalopathic EEG with more slowing, Antibiotics: meropenem vanco po Allergies/Adverse Reactions: Allergies No Known Allergies Allergy (Verified 08/19/17 11:38) Objective Vital Signs 08/28/17 14:00 08/28/17 15:00 08/28/17 15:20 Temperature Pulse Rate 69 67 68 Respiratory Rate 17 19 Blood Pressure 161/73 H 117/58 L 129/65 Pulse Oximetry 99 99 99 08/28/17 15:40 08/28/17 16:00 08/28/17 16:20 Temperature 99.2 F Pulse Rate 68 68 69 Respiratory Rate 18 14 16 Blood Pressure 125/62 126/61 128/64 Pulse Oximetry 99 99 98 08/28/17 16:40 08/28/17 17:00 08/28/17 17:05 Temperature Pulse Rate 67 71 Respiratory Rate 15 19 19 Blood Pressure 138/67 132/63 Pulse Oximetry 99 100 08/28/17 17:20 08/28/17 17:40 08/28/17 18:00 Temperature Pulse Rate 68 67 69 Respiratory Rate 15 17 14 Blood Pressure 122/62 126/64 126/64 Pulse Oximetry 99 99 99 08/28/17 18:20 08/28/17 18:40 08/28/17 19:00 Temperature Pulse Rate 67 67 69 Respiratory Rate 15 17 16 Blood Pressure 128/64 130/65 130/68 Pulse Oximetry 100 100 100 08/28/17 19:20 08/28/17 19:40 08/28/17 20:00 Temperature 97 F L Pulse Rate 68 68 70 Respiratory Rate 15 15 21 Blood Pressure 118/66 123/65 122/60 Pulse Oximetry 100 98 100 08/28/17 20:20 08/28/17 20:40 08/28/17 21:00 Temperature Pulse Rate 68 67 69 Respiratory Rate 16 15 16 Blood Pressure 111/58 L 103/55 L 98/53 L Pulse Oximetry 100 100 100 08/28/17 21:03 08/28/17 21:20 08/28/17 21:40 Temperature Pulse Rate 68 72 74 Respiratory Rate 16 15 16 Blood Pressure 87/51 L 82/58 L Pulse Oximetry 100 99 08/28/17 22:00 08/28/17 22:20 08/28/17 22:40 Temperature Pulse Rate 73 75 74 Respiratory Rate 15 16 14 Blood Pressure 102/57 L 104/59 L 104/64 Pulse Oximetry 99 100 99 08/28/17 23:00 08/28/17 23:20 08/28/17 23:30 Temperature Pulse Rate 75 78 77 Respiratory Rate 20 22 21 Blood Pressure 91/58 L 96/61 L Pulse Oximetry 98 99 100 08/28/17 23:40 08/29/17 00:00 08/29/17 00:20 Temperature 97.2 F L Pulse Rate 74 74 72 Respiratory Rate 21 21 21 Blood Pressure 102/70 113/62 115/61 Pulse Oximetry 100 100 100 08/29/17 00:40 08/29/17 01:00 08/29/17 01:20 Temperature Pulse Rate 73 79 76 Respiratory Rate 21 22 22 Blood Pressure 106/55 L 98/60 L 96/61 L Pulse Oximetry 100 100 100 08/29/17 01:40 08/29/17 02:00 08/29/17 02:20 Temperature Pulse Rate 78 73 75 Respiratory Rate 22 26 H 22 Blood Pressure 99/55 L 100/63 102/55 L Pulse Oximetry 100 100 99 08/29/17 02:40 08/29/17 03:00 08/29/17 03:30 Temperature Pulse Rate 78 76 77 Respiratory Rate 20 20 19 Blood Pressure 87/58 L 96/53 L 92/54 L Pulse Oximetry 99 99 98 08/29/17 03:35 08/29/17 04:00 08/29/17 04:18 Temperature 97.6 F Pulse Rate 77 76 Respiratory Rate 19 24 23 Blood Pressure 93/58 L Pulse Oximetry 99 98 08/29/17 04:30 08/29/17 05:00 08/29/17 05:30 Temperature Pulse Rate 74 76 80 Respiratory Rate 17 21 20 Blood Pressure 92/59 L 89/54 L 90/53 L Pulse Oximetry 99 99 98 08/29/17 06:00 08/29/17 06:05 08/29/17 06:31 Temperature Pulse Rate 78 77 79 Respiratory Rate 17 18 20 Blood Pressure 87/57 L 89/54 L Pulse Oximetry 99 100 99 08/29/17 07:00 08/29/17 07:30 08/29/17 08:00 Temperature 101.2 F H Pulse Rate 76 78 81 Respiratory Rate 18 18 19 Blood Pressure 94/55 L 95/54 L 84/57 L Pulse Oximetry 99 98 98 08/29/17 08:30 08/29/17 09:00 08/29/17 09:31 Temperature Pulse Rate 81 81 82 Respiratory Rate 18 19 19 Blood Pressure 92/53 L 92/55 L 106/59 L Pulse Oximetry 99 97 98 08/29/17 10:00 08/29/17 10:30 08/29/17 11:00 Temperature Pulse Rate 80 89 88 Respiratory Rate 18 25 H 18 Blood Pressure 98/62 L 124/64 124/61 Pulse Oximetry 98 98 100 08/29/17 11:30 08/29/17 12:00 08/29/17 12:30 Temperature 98.6 F Pulse Rate 86 85 84 Respiratory Rate 19 21 22 Blood Pressure 112/75 120/59 L 120/66 Pulse Oximetry 99 98 100 08/29/17 13:00 08/29/17 13:27 Temperature Pulse Rate 81 Respiratory Rate 20 21 Blood Pressure Pulse Oximetry 98 100 Intake & Output 08/28/17 08/29/17 08/29/17 18:59 06:59 18:59 Intake Total 708 / 708 550 / 550 158 / 158 Output Total 1799 / 1799 1499 / 1499 500 / 500 Balance -1091 / -1091 -949 / -949 -342 / -342 Weight 78 kg Intake: IV 411 / 411 158 / 158 158 / 158 Cerebyx Inj 150 MGPE In NS Inj 106 / 106 53 / 53 53 / 53 50 ML @ 208 mls/hr IV.SIG Q8H M[facility] Rx#:[id number] Merrem Inj 1,000 MG In NS Inj 100 / 100 100 ML @ 200 mls/hr IV.SIG Q24H [facility] Rx#:[id number] Keppra Inj 500 MG In NS Inj 100 105 / 105 105 / 105 105 / 105 ML @ 420 mls/hr IV.SIG Q12H MARC Rx#:[id number] Flagyl 500 MG Inj 100 ML @ 100 100 / 100 mls/hr IV.SIG Q8H M[facility] Rx#: [id number] Oral 0 / 0 Tube Feeding 297 / 297 302 / 302 Water Bolus Amount 90 / 90 Output: Urine 0 / 0 Stool 900 / 900 600 / 600 Peritoneal Amount 899 / 899 899 / 899 500 / 500 Gastric Drainage 0 / 0 Orogastric Tube 0 / 0 Other: # Voids 2 1 Date of Last Bowel Movement 08/28/17 08/28/17 08/28/17 08/26/17 17:21 Sputum - Endotracheal Gram Stain - Final 08/26/17 17:21 Sputum - Endotracheal Sputum Culture - Final Pseudomonas aeruginosa 08/27/17 04:40 Blood - Peripheral Aerobic Blood Culture - Preliminary No growth in 2 days 08/27/17 04:40 Blood - Peripheral Anaerobic Blood Culture - Preliminary No growth in 2 days 08/27/17 04:43 Blood - Peripheral Aerobic Blood Culture - Preliminary No growth in 2 days 08/27/17 04:43 Blood - Peripheral Anaerobic Blood Culture - Preliminary No growth in 2 days 08/25/17 17:33 Lumbar Puncture Gram Stain - Final 08/25/17 17:33 Lumbar Puncture CSF Culture - Final No growth in 72 hours 08/25/17 17:33 Cerebral Spinal Fluid - Lumbar Puncture Acid Fast Bacilli Smear - Final No acid fast bacilli seen 08/25/17 17:33 Cerebral Spinal Fluid - Lumbar Puncture Mycobacterial Culture - Pending Lab - Hematology Results 08/28/17 08/29/17 06:26 04:56 WBC 18.6 H 15.8 H RBC 2.25 L 2.47 L Hgb 7.4 L 8.1 L Hct 22.4 L 24.8 L MCV 99.7 100.5 H MCH 32.7 32.7 MCHC 32.8 32.5 RDW 15.6 15.8 Plt Count 194 205 MPV 7.8 7.9 Lab - Chemistry Results 08/27/17 08/27/17 08/28/17 15:15 18:28 00:48 Sodium Potassium 4.0 Chloride Carbon Dioxide Anion Gap BUN Creatinine Estimated GFR POC Glucose 175 H 311 H Random Glucose Calcium Ammonia Vitamin B12 Folate 08/28/17 08/28/17 08/28/17 06:04 06:26 06:26 Sodium 139 Potassium 3.2 L D Chloride 104 Carbon Dioxide 21.2 Anion Gap 14 BUN 29 H Creatinine 6.15 H Estimated GFR 9 L POC Glucose 227 H Random Glucose 175 H Calcium 8.5 Ammonia Vitamin B12 660 Folate 7.1 08/28/17 08/28/17 08/28/17 12:31 16:19 17:54 Sodium Potassium Chloride Carbon Dioxide Anion Gap BUN Creatinine Estimated GFR POC Glucose 150 H 197 H Random Glucose Calcium Ammonia 22 Vitamin B12 Folate 08/28/17 08/29/17 08/29/17 23:44 04:56 11:31 Sodium 140 Potassium 3.1 L Chloride 105 Carbon Dioxide 15.9 L Anion Gap 19 H BUN 35 H Creatinine 6.08 H Estimated GFR 9 L POC Glucose 287 H 163 H Random Glucose 190 H Calcium 8.9 Ammonia Vitamin B12 Folate Imaging: ITS Impressions Head CTA 08/22/17 00:00 CONCLUSION: 1. Negative CTA Head. Neck CTA 08/22/17 00:00 CONCLUSION: 1. Negative CTA Carotid. Head CT 08/25/17 08:31 CONCLUSION: Chronic small vessel ischemic and atrophic changes. Chest X-Ray 08/26/17 00:00 CONCLUSION: There continues to be some bibasal infiltrates, left greater than right. No significant change compared to the prior study. Physical Exam: GENERAL: NAD not sedated on vent SKIN: Warm and dry. HEAD: Atraumatic. Normocephalic. EYES: Pupils equal and round. No scleral icterus. No injection or drainage. ENT: No nasal bleeding or discharge. Mucous membranes pink and moist. NECK: Trachea midline. No JVD. CARDIOVASCULAR: Regular rate and rhythm. RESPIRATORY: No accessory muscle use. Clear to auscultation. Breath sounds equal bilaterally. GASTROINTESTINAL: Abdomen soft, non-tender, + mildly distended. Hepatic and splenic margins not palpable. dignishield in plac e with large amount of liquid stool PD cath in place MUSCULOSKELETAL: Extremities without clubbing, cyanosis, + 1 edema. No obvious deformities. NEUROLOGICAL: off sedation unresponsive PSYCHIATRIC: unable to assess Assessment and Plan - Plan Myocardittis Vfib/V tach No e/o MEDICATION COORDINATOR infection by CSF labwork and imaging studies Acute VDRF PSAE PNA : mod WBC, GNBs on Gstain - more secretions and fever despite of cefepime R imipenem C./diff ESRD/PD Encephalopathy, severe cont oral vancomycin will change meropenme back to cefepime fu clincaly dw Dr Lousi
--- NOTE | 2017-08-29 14:16 | P.PNNP ---
Subjective Interval history: Patient appears pale on hyperventilating on ventilator Physical Exam Vital signs: Vital Signs 08/28/17 15:00 08/28/17 15:20 08/28/17 15:40 Temperature Pulse Rate 67 68 68 Respiratory Rate 17 19 18 Blood Pressure 117/58 L 129/65 125/62 Pulse Oximetry 99 99 99 08/28/17 16:00 08/28/17 16:20 08/28/17 16:40 Temperature 99.2 F Pulse Rate 68 69 67 Respiratory Rate 14 16 15 Blood Pressure 126/61 128/64 138/67 Pulse Oximetry 99 98 99 08/28/17 17:00 08/28/17 17:05 08/28/17 17:20 Temperature Pulse Rate 71 68 Respiratory Rate 19 19 15 Blood Pressure 132/63 122/62 Pulse Oximetry 100 99 08/28/17 17:40 08/28/17 18:00 08/28/17 18:20 Temperature Pulse Rate 67 69 67 Respiratory Rate 17 14 15 Blood Pressure 126/64 126/64 128/64 Pulse Oximetry 99 99 100 08/28/17 18:40 08/28/17 19:00 08/28/17 19:20 Temperature 97 F L Pulse Rate 67 69 68 Respiratory Rate 17 16 15 Blood Pressure 130/65 130/68 118/66 Pulse Oximetry 100 100 100 08/28/17 19:40 08/28/17 20:00 08/28/17 20:20 Temperature Pulse Rate 68 70 68 Respiratory Rate 15 21 16 Blood Pressure 123/65 122/60 111/58 L Pulse Oximetry 98 100 100 08/28/17 20:40 08/28/17 21:00 08/28/17 21:03 Temperature Pulse Rate 67 69 68 Respiratory Rate 15 16 16 Blood Pressure 103/55 L 98/53 L Pulse Oximetry 100 100 08/28/17 21:20 08/28/17 21:40 08/28/17 22:00 Temperature Pulse Rate 72 74 73 Respiratory Rate 15 16 15 Blood Pressure 87/51 L 82/58 L 102/57 L Pulse Oximetry 100 99 99 08/28/17 22:20 08/28/17 22:40 08/28/17 23:00 Temperature Pulse Rate 75 74 75 Respiratory Rate 16 14 20 Blood Pressure 104/59 L 104/64 91/58 L Pulse Oximetry 100 99 98 08/28/17 23:20 08/28/17 23:30 08/28/17 23:40 Temperature Pulse Rate 78 77 74 Respiratory Rate 22 21 21 Blood Pressure 96/61 L 102/70 Pulse Oximetry 99 100 100 08/29/17 00:00 08/29/17 00:20 08/29/17 00:40 Temperature 97.2 F L Pulse Rate 74 72 73 Respiratory Rate 21 21 21 Blood Pressure 113/62 115/61 106/55 L Pulse Oximetry 100 100 100 08/29/17 01:00 08/29/17 01:20 08/29/17 01:40 Temperature Pulse Rate 79 76 78 Respiratory Rate 22 22 22 Blood Pressure 98/60 L 96/61 L 99/55 L Pulse Oximetry 100 100 100 08/29/17 02:00 08/29/17 02:20 08/29/17 02:40 Temperature Pulse Rate 73 75 78 Respiratory Rate 26 H 22 20 Blood Pressure 100/63 102/55 L 87/58 L Pulse Oximetry 100 99 99 08/29/17 03:00 08/29/17 03:30 08/29/17 03:35 Temperature Pulse Rate 76 77 77 Respiratory Rate 20 19 19 Blood Pressure 96/53 L 92/54 L Pulse Oximetry 99 98 08/29/17 04:00 08/29/17 04:18 08/29/17 04:30 Temperature 97.6 F Pulse Rate 76 74 Respiratory Rate 24 23 17 Blood Pressure 93/58 L 92/59 L Pulse Oximetry 99 98 99 08/29/17 05:00 08/29/17 05:30 08/29/17 06:00 Temperature Pulse Rate 76 80 78 Respiratory Rate 21 20 17 Blood Pressure 89/54 L 90/53 L Pulse Oximetry 99 98 99 08/29/17 06:05 08/29/17 06:31 08/29/17 07:00 Temperature Pulse Rate 77 79 76 Respiratory Rate 18 20 18 Blood Pressure 87/57 L 89/54 L 94/55 L Pulse Oximetry 100 99 99 08/29/17 07:30 08/29/17 08:00 08/29/17 08:30 Temperature 101.2 F H Pulse Rate 78 81 81 Respiratory Rate 18 19 18 Blood Pressure 95/54 L 84/57 L 92/53 L Pulse Oximetry 98 98 99 08/29/17 09:00 08/29/17 09:31 08/29/17 10:00 Temperature Pulse Rate 81 82 80 Respiratory Rate 19 19 18 Blood Pressure 92/55 L 106/59 L 98/62 L Pulse Oximetry 97 98 98 08/29/17 10:30 08/29/17 11:00 08/29/17 11:30 Temperature Pulse Rate 89 88 86 Respiratory Rate 25 H 18 19 Blood Pressure 124/64 124/61 112/75 Pulse Oximetry 98 100 99 08/29/17 12:00 08/29/17 12:30 08/29/17 13:00 Temperature 98.6 F Pulse Rate 85 84 81 Respiratory Rate 21 22 20 Blood Pressure 120/59 L 120/66 Pulse Oximetry 98 100 98 08/29/17 13:27 Temperature Pulse Rate Respiratory Rate 21 Blood Pressure Pulse Oximetry 100 Intake & Output 08/28/17 08/29/17 08/29/17 18:59 06:59 18:59 Intake Total 708 / 708 550 / 550 158 / 158 Output Total 1799 / 1799 1499 / 1499 500 / 500 Balance -1091 / -1091 -949 / -949 -342 / -342 Weight 78 kg Intake: IV 411 / 411 158 / 158 158 / 158 Cerebyx Inj 150 MGPE In NS Inj 106 / 106 53 / 53 53 / 53 50 ML @ 208 mls/hr IV.SIG Q8H [facility] Rx#:[id number] Merrem Inj 1,000 MG In NS Inj 100 / 100 100 ML @ 200 mls/hr IV.SIG Q24H [facility] Rx#:[id number] Keppra Inj 500 MG In NS Inj 100 105 / 105 105 / 105 105 / 105 ML @ 420 mls/hr IV.SIG Q12H [facility] Rx#:[id number] Flagyl 500 MG Inj 100 ML @ 100 100 / 100 mls/hr IV.SIG Q8H [facility] Rx#: [id number] Oral 0 / 0 Tube Feeding 297 / 297 302 / 302 Water Bolus Amount 90 / 90 Output: Urine 0 / 0 Stool 900 / 900 600 / 600 Peritoneal Amount 899 / 899 899 / 899 500 / 500 Gastric Drainage 0 / 0 Orogastric Tube 0 / 0 Other: # Voids 2 1 Date of Last Bowel Movement 08/28/17 08/28/17 08/28/17 - Constitutional moderate distress, chronically ill appearing - Routine HEENT Exam Head: Present: normocephalic Eye: Present: EOMI - Routine Respiratory Exam Present: patient mechanically ventilated Comments: Tachypneic - Routine Cardiovascular Exam Present: tachycardia - Routine Abdominal Exam Present: soft, distended - Routine Extremities Exam Present: edema Assessment and Plan - Assessment (1) ESRD (end stage renal disease) on dialysis Code(s): N18.6 - End stage renal disease; Z99.2 - Dependence on renal dialysis Status: Acute Plan: Patient is on peritoneal dialysis was done yesterday, he is acidotic ordered sodium bicarbonate IV continue to do peritoneal dialysis Cardiology is following patient is critically ill, he has atrial fibrillation tachycardia congestive heart failure Prognosis is guarded (2) Paroxysmal atrial fibrillation Code(s): I48.0 - Paroxysmal atrial fibrillation Status: Acute (3) Cardiomyopathy Code(s): I42.9 - Cardiomyopathy, unspecified Status: Acute Qualifiers: Cardiomyopathy type: unspecified Qualified Code(s): I42.9 - Cardiomyopathy , unspecified - Plan His overall prognosis is poor. He has been hospitalized most of the past year. Functional decline as well. At risk for morbidity and mortality. declined palliative services.
[2017-08-29] MEDS: Morphine Inj 4 MG/ML Vial IV.PUSH PRN (14:19)
[2017-08-29] MEDS ORDERED: Sodium Bicarbonate 8.4% Inj 50 MEQ/50 ML Syringe IV.PUSH ONE (15:00)
--- NOTE | 2017-08-29 20:41 | MG ---
cc: Roney Shane MD, Mandeep MD EEG NUMBER [id number] Some triphasic waveforms and periodic discharges occurring at times, polymorphic delta activity 1-3 Hz. Limited driving with photic stimulation. Single lead EKG showing sinus rhythm and at times some irregularity. INTERPRETATION: Moderate to severe encephalopathy with periodic discharges occurring in clusters. It did not look entirely epileptiform. Clinical correlation. MD WILLA Moffett/ , 08:23 PM , 08:40 PM
[2017-08-29] MEDS: Latanoprost 0.005% Opth Drops 2.5 ML Bottle EACH EYE SCH (21:32)
[2017-08-30] MEDS: Oral Hygiene Kit OROPHARYNG SCH (00:16)
[2017-08-30] MEDS: Fosphenytoin Inj 150 MGPE in Sodium Chlor 0.9% Inj 50 ML IV.SIG SCH (00:28)
[2017-08-30] MEDS: Insulin NovoLOG Aspart Correctional Sugar Inj SQ SCH (00:29)
[2017-08-30] MEDS: Morphine Inj 4 MG/ML Vial IV.PUSH PRN (02:00)
[2017-08-30 02:56] LABS: ABG Base Excess -19.1 mmol/L (-2-2); ABG PCO2 19 mmHg (38-42); ABG PO2 349 mmHG (61-120)
[2017-08-30] MEDS ORDERED: Sodium Bicarbonate 8.4% Inj 50 MEQ/50 ML Syringe IV.PUSH ONE (03:00)
[2017-08-30 03:45] VITALS: RESP 28
[2017-08-30] MEDS ORDERED: Sodium Bicarbonate 8.4% Inj 150 MEQ in Water for Inj, Sterile 850 ML IV.CONT SCH (04:00)
[2017-08-30 04:21] VITALS: BP 71/48; PULSE 69; TEMP 99.9; O2SAT 70
[2017-08-30] MEDS ORDERED: fentaNYL 10 mcg/mL Premix Drip 2,500 MCG/250 ML BAG IV.SIG PRN (04:29)
[2017-08-30] MEDS ORDERED: Albumin Human 25% Inj 100 ML IV.SIG ONE (04:32)
[2017-08-30] MEDS ORDERED: Phenylephrine Inj 40 MG in Dextrose 5% in Water Inj 496 ML IV.CONT PRN ×2 (04:34)
--- NOTE | 2017-08-30 05:04 | P.DN ---
Pronouncement Note - Date and Time of Date of : 08/30/17 Time of : 05:00 - PCOD Preliminary cause of : Cardiac arrest - Additional Data Confirmation of : no pulse, no respirations, no heart sounds, pupils fixed and dilated Family: attempt made Attending/PCP notified?: Yes Attending physician: Santiago Diaz MD Was code activated?: Yes Autopsy requested?: No cigarette making examiner notified?: No Organ bank notified?: Yes Advance directives: No
--- NOTE | 2017-09-06 07:04 | P.DN ---
Discharge Sum: Prov - Provider Primary care physician: [facility] Admitting clinician: Timoteo Louis Attending physician on admission: Timoteo Louis Consults: 08/19/17 13:22 Consult to Nephrology Routine Consulting Provider: Gabriel Salcedo Does the patient have a Signal Operator Technical who follows them?: Yes Preferred Nephrology Configuration Consultant:: Scrummaster Physician Reason for Consultation: ESRD Notified:: Service Spoke with:: michael Date Notified:: 08/19/17 Time Notified:: 13:52 Comments:: patient is known to Dr. Long D per c/pod [facility] 08/[facility] 13:24 Consult to Cardiology Routine Consulting Provider: Luis Leong Does the patient have a Security Engineer who follows them?: Yes Preferred Grinder Set Up Operator Gear Tool:: Luis Leong Reason for Consultation: Sustained VTAC Notified:: Office Spoke with:: ajay Date Notified:: 08/19/17 Time Notified:: 13:55 [facility] 08/21/17 02:55 Consult to Cardiology Routine Consulting Provider: Curry Brennan Does the patient have a Security Engineer who follows them?: Yes Preferred Grinder Set Up Operator Gear Tool:: Curry Brennan Reason for Consultation: recurrent V. Tach despite aggressive management. Dr. Leong asked that Dr. Brennan be consulted for possible EP study. Notified:: Service Spoke with:: Augustine Date Notified:: 08/21/17 Time Notified:: 03:09 Ordering Provider: ELLIOT 08/22/17 07:10 Consult to Neurology Stat Consulting Provider: Bhavana Marin For STAT consult, spoke directly to:: DR HARVEY Reason for Consultation: Brain Attack Notified:: Service Spoke with:: Jazmín Date Notified:: 08/22/17 Time Notified:: 07:21 Ordering Provider: ALYSE 08/22/17 09:35 Consult to Rehab Medicine Routine Consulting Provider: Sha Ventura Reason for Consultation: Stroke patient, assist with Rehab recommendations Notified:: Service Spoke with:: Anne Date Notified:: 08/22/17 Time Notified:: 09:47 Ordering Provider: ALYSE 08/26/17 11:13 Consult to Infectious Diseases Routine Consulting Provider: Dorys Oconnor Preferred Configuration Consultant:: Dorys Oconnor Patient known to:: Dorys Oconnor Reason for Consultation: ?myocarditis/encephalitis Notified:: Service Spoke with:: JAZMÍN Date Notified:: 08/26/17 Time Notified:: 11:18 Ordering Provider: ELLIOT Lemus clinician: Chrystal Pollack Discharge Sum: Diag - PCOD Cause of : Cardiac arrest Discharge Sum: Summary - Date and Time Date of admission: 08/19/17 13:22 Date of : 08/30/17 Time of : 05:00 - Summary Details: Patient is an 82-year-old male with a past medical history of hypertension, obstructive sleep apnea, COPD, history of CVA, end-stage renal disease on peritoneal dialysis who was recently admitted to [facility] from 05/21/17 to for respiratory failure. He was brought into the emergency department today for multiple episodes of syncope. EMS strips showed several episodes of nonsustained V. tach. In the emergency department patient had a single episode of sustained V. tach, up to 54 seconds, with loss of consciousness. Pads were placed for emergency defibrillation however prior to defibrillation patient regained sinus rhythm and consciousness. Patient was given 150 mg amiodarone bolus IV, followed by amiodarone infusion. Dr. Leong from cardiology was consulted. I evaluated the patient in the emergency department. Patient is lying in bed denies chest pain. He has sinus bradycardia. I reviewed the EMS EKG strips, and the EKG done in the ED. He has sinus bradycardia, and prolonged QT interval. I discussed with Dr. Leong, we will continue amiodarone as this time as the patient responded to amiodarone. Patient will need serial cardiac enzymes, 2D echo, evaluate for AICD placement. Home medications of Midrin and propantheline will be held due to arrhythmias. Dr. Leong will evaluate for AICD placement 08/20: Overnight, 3 minute long episodes of V. tach with intermittent loss of conscious. CPR initiated with chest compressions 3 minutes. Defibrillator with 200 J. Rebolus with amiodarone 150 mg at 1040. Patient still intermittently in V. tach/bradycardic rhythm. Rebolus with 150 mg of amiodarone and currently on amiodarone drip at 1 mg/min. Lidocaine will be the next choice. Currently resting in bed and appears comfortable despite the ongoing unstable rhythm 08/21 Patient went into Vtach/vfib overnight AICD fired x 4 started now on Amio and Lidocaine drips. Afebrile. Awake and alert. 08/22: Afebrile. Last seen normal state of health at 0600. At 606 40, already noticed patient gurgling. A phasic. Both hands were at throat. Able to squeeze bilateral hands/reflexes. Moving left upper extremity spontaneously. No response bilateral lower extremities. Patient emergently intubated and sent for CT brain. Stroke alert was called and Dr. Marin notified. Attempting to notify Dr. Leong. 08/23: On route to CT brain status post 24 hours alteplase patient went to an unstable rhythm likely V. fib after which she received a shock back into normal sinus rhythm. Currently awake and alert and following commands. Lidocaine drip restarted. Cardiology to be notified. 08/24 Patient remain intubated, off sedation. Afebrile. 08/25: new altered mental status. ?seizure like activity. no VT/VF. 08/26: encephalopathy persists. dilantin level persistently subtherapeutic. re- bolused 50mg phosphenytoin. repeat EEG today. LP with lymphocytic predominance and slightly elevated protein: could be consistent with viral encephalitis. still unable to obtain MRI. remainder of studies pending. 08/27: still very encephalopathic. not following commands. off sedation for many days. now C. Diff positive. no more ictal activity on EEG. Dr. Oconnor does not think RETAIL CUSTODIAL ASSOCIATE studies c/w infectious etiology. 08/28: no improvement in mental status at all. not following commands. psuedomonas VAP superimposed on C. Diff colitis. 08/29: no changes or improvements. more acidotic today. 08/29-08/30: patient became more acidotic and unstable. frequent ventricular dysrhythmias. refractory shock. patient . - Additional Data Confirmation of as documented by pronouncing clinician: no pulse Attending physician: Santiago Diaz MD
== END 2017-08-30 05:00 | disposition expired ==
LOC: NEPC 11:18 → NEDA 13:22 → HIMC 17:15
PROVIDERS: ADMIT Internal Medicine; ATTEND Internal Medicine
DX: G93.40 Encephalopathy, unspecified; R55 Syncope and collapse; J95.851 Ventilator associated pneumonia; I48.0 Paroxysmal atrial fibrillation; Z87.11 Personal history of peptic ulcer disease; J15.1 Pneumonia due to Pseudomonas; G47.33 Obstructive sleep apnea (adult) (pediatric); I50.9 Heart failure, unspecified; Z99.2 Dependence on renal dialysis; I49.01 Ventricular fibrillation; D63.1 Anemia in chronic kidney disease; I51.4 Myocarditis, unspecified; Z86.73 Personal history of transient ischemic attack (TIA), and cerebral infarction without residual deficits; E78.5 Hyperlipidemia, unspecified; J96.02 Acute respiratory failure with hypercapnia; F32.9 Major depressive disorder, single episode, unspecified; I13.2 Hypertensive heart and chronic kidney disease with heart failure and with stage 5 chronic kidney disease, or end stage renal disease; R74.8 Abnormal levels of other serum enzymes; E87.1 Hypo-osmolality and hyponatremia; R47.01 Aphasia; E87.6 Hypokalemia; H40.9 Unspecified glaucoma; E43 Unspecified severe protein-calorie malnutrition; G40.909 Epilepsy, unspecified, not intractable, without status epilepticus; A86 Unspecified viral encephalitis; E87.2 Acidosis; Z99.11 Dependence on respirator [ventilator] status; A04.71 Enterocolitis due to Clostridium difficile, recurrent; I46.9 Cardiac arrest, cause unspecified; Y84.8 Other medical procedures as the cause of abnormal reaction of the patient, or of later complication, without mention of misadventure at the time of the procedure; N25.0 Renal osteodystrophy; I25.10 Atherosclerotic heart disease of native coronary artery without angina pectoris; Z95.5 Presence of coronary angioplasty implant and graft; J44.9 Chronic obstructive pulmonary disease, unspecified; J96.01 Acute respiratory failure with hypoxia; N18.6 End stage renal disease; I47.2 Ventricular tachycardia; Z22.1 Carrier of other intestinal infectious diseases; I63.9 Cerebral infarction, unspecified; I42.9 Cardiomyopathy, unspecified